=== PATIENT | female | born 1940 | race Caucasian/White ===

== ENCOUNTER 2024-12-21 22:41 | Emergency (ER) | payer MEDICARE, SELFPAY ==
--- NOTE | ~2024-12-21 | CT_ITS ---
CT Facial Bones and Cervical Spine Clinical Indication: Head injury Technique: Contiguous axial scans were obtained through the facial bones and cervical spine followed by coronal and sagittal reconstructions. Dose reduction technique was used on this scan by utilizing automated exposure control and iterative reconstruction technique. The dose-length product (DLP) was 281.14 mGy-cm. Findings: CT facial bones: There is acute right nasal bone fracture, and questionable nondisplaced acute left n patti bone fracture. No other acute fracture seen. There is postoperative changes bilaterally at the m andibular rami, with advanced degenerative change of the bilateral mandibular condyles.. The visualiz ed paranasal sinuses are clear. Intraorbital soft tissues appear normal. CT cervical spine: No acute fracture. There is 3 mm anterolisthesis of C4 over C5. There is reversal normal cervical lordosis. There is severe degenerative spurring at C3-C4, C4-C5, C5-C6, and C6-C7. Th ere is moderate degenerative change at the articulation of the odontoid process with the anterior arc h of C1. There is moderate to advanced facet arthropathy throughout the cervical spine. There is left neural foraminal narrowing at C3-C4. There is probable bilateral neural foraminal narrowing at C4-C5 , C5-C6, and C6-C7. No prevertebral soft tissue swelling. Impression: Acute bilateral nasal bone fractures, as above. Chronic changes at the bilateral temporomandibular joints, likely degenerative in nature. No acute fracture the cervical spine. 3 mm anterolisthesis of C4 over C5. Advanced degenerative spondylosis of the cervical spine, as above. Reviewed, dictated and finalized at [facility]. Impression: Acute bilateral nasal bone fractures, as above. Chronic changes at the bilateral temporomandibular joints, likely degenerative in nature. No acute fracture the cervical spine. 3 mm anterolisthesis of C4 over C5. Advanced degenerative spondylosis of the cervical spine, as above.
--- NOTE | ~2024-12-21 | CT_ITS ---
CT head without contrast Indication: Head injury Technique: Serial scans were obtained through the brain without the administration of contrast. Dose reduction technique was used on this scan by utilizing automated exposure control and iterative recon struction technique. The dose-length product (DLP) was 681.00 mGy-cm. Findings: There is no evidence of intracranial hemorrhage, mass lesion, or acute infarct. The ventri cles and subarachnoid spaces are dilated, consistent with moderate atrophy. Low attenuation regions are seen within the periventricular white matter bilaterally, likely representing changes from chroni c microvascular ischemic disease. There is no evidence of edema, mass effect or midline shift. Left sphenoid sinus disease noted. The remaining visualized paranasal sinuses and mastoid air cells are cl ear. Impression: No intracranial hemorrhage, mass, or acute infarct. Atrophy and chronic white matter changes, as above. Left sphenoid sinus disease. Reviewed, dictated and finalized at [facility]. Impression: No intracranial hemorrhage, mass, or acute infarct. Atrophy and chronic white matter changes, as above. Left sphenoid sinus disease.
[2024-12-21 22:42] VITALS: BP 148/63; PULSE 83; RESP 16; TEMP 37.1; O2SAT 98
--- NOTE | 2024-12-21 23:00 | ED_ITS ---
HPI - Fall General Chief Complaint: Fall Stated Complaint: FACIAL BRUISING S/P FALL 2 DAYS AGO Time Seen by Provider: 12/21/24 22:52 History of Present Illness HPI Narrative: 84-year-old female with history of Alzheimer's dementia, hypertension, hyperlipidemia, diabetes, MDD, GERD, CKD stage 2, CHF chronic indwelling Connolly catheter presents to the ED via EMS from [facility] for a head injury and fall. Per EMS, pt rolled out of bed 2 days ago and hit her head. Unknown LOC. She is not on anticoagulants. Patient has no complaints upon arrival. She presents with bruising to her nose and inferior orbits, and a skin tear to the dorsum of the left hand with overlying steri-strips. She had an xray of the skull performed at her facility which showed no definite displaced her depressed calvarial fracture with recommendations for further evaluation with CT head if clinically warranted. Her paperwork from [facility] was reviewed and patient is comfort care, DNR and on hospice. Patient is normally A&O x2 at baseline. Review of Systems Review of Systems: All systems reviewed & are unremarkable except as noted in HPI and below Exam Narrative: GENERAL: Elderly female resting comfortably in exam bed, NAD HEAD: Normocephalic, atraumatic. EYES: PERRLA and EOMI. Ecchymosis to bilateral inferior orbits with mild tenderness palpation. No proptosis ENT: Nares clear, no rhinorrhea or epistaxis. Mucous membranes moist. Minimal tenderness and swelling to the bridge of the nose with very superficial abrasion the bridge of the nose, no active bleeding. No septal hematomas, no epistaxis NECK: Minimal tenderness to the cervical spinal crepitus, step-offs or deformities BACK: No tenderness to thoracolumbar spine, crepitus or step-offs, no deformities CHEST: Clear to auscultation. No respiratory distress. Tenderness to chest wall HEART: Regular rate and rhythm. No murmur heard. Normal peripheral pulses. ABDOMEN: Soft, nontender, nondistended, normal active bowel sounds. EXTREMITIES: Normal range of motion. No tenderness to BUE are BLE. SKIN: Healing well approximated laceration with overlying scabbing to the dorsum of left hand with overlying Steri-Strips. Mild warmth and erythema to dorsum of the hand, no significant tenderness. erythema and warmth to lower tib/fib with no tenderness NEURO: No focal deficits. Alert and oriented x2. Moving all extremities spontaneously. Course Vital Signs Vital signs: Vital Signs Temperature 98.7 F 12/21/24 22:42 Pulse Rate 83 12/21/24 22:42 Respiratory Rate 16 12/21/24 22:42 Blood Pressure 148/63 H 12/21/24 22:42 Pulse Oximetry 98 12/21/24 22:42 Oxygen Delivery Room Air 12/21/24 22:42 Temperature 98.7 F 12/21/24 22:42 Pulse Rate 83 12/21/24 22:42 Respiratory Rate 16 12/21/24 22:42 Blood Pressure 148/63 H 12/21/24 22:42 Pulse Oximetry 98 12/21/24 22:42 Oxygen Delivery Room Air 12/21/24 22:42 MDM - Fall MDM Narrative Medical decision making narrative: 84-year-old female with history of Alzheimer's dementia who is A&O x2 at [facility], currently at her baseline mental status, presents to the ED via EMS from [facility] for a head injury. Patient reportedly rolled out of bed. She is not anticoagulated. Unknown LOC. vital stable. Patient is resting comfortably in exam bed. She has no complaints. Exam is notable for the above. Patient's external chart was reviewed. She is DNR, comfort care only and on hospice. I contacted patient's daughter, Miladys Larkin, to discuss goals of care today. She states patient reportedly fell this morning at 4am as opposed to 2 days ago. Miladys had requested the patient be transferred from [facility] to [facility], however the patient was transferred here instead. She would like the patient transferred from [facility] to [place], however shared this would be an EMTALA violation. Shared decision making regarding obtaining CT imaging of brain, facial bones and cervical spine here vs d/c back to [place] given she is comfort care/hospice and any new findings on advanced imaging will likely not affect treatment plan. Miladys would like the CT imaging performed. She notes she wants to find out of the patient has any intracranial bleeding. CT brain shows no acute findings. CT C-spine shows no acute fractures. CT facial bones shows acute nasal bone fracture. Family now at bedside and updated on results. Patient does have a healing lacerations overlying Steri-Strips to the dorsum of the left hand. There is mild surrounding warmth and erythema with no remarkable tenderness, no fluctuation or induration. Additionally she does have some warmth and erythema to the bilateral tib-fib which are largely unchanged from baseline per family. Also has very superficial abrasion to bridge of nose overlying nasal bone fx with no deep structures visualized. Discussed starting patient on antibiotics to cover cellulitis and open nasal bone fx, however they politely declined states they will defer to hospice. Tdap updated here. Pt discharged back to [facility] facility. Discharge Plan Discharge Clinical Impression: Closed head injury Qualifiers: Encounter type: initial encounter Qualified Code(s): S09.90XA - Unspecified injury of head, initial encounter Facial bruising Qualifiers: Encounter type: initial encounter Qualified Code(s): S00.83XA - Contusion of other part of head, initial encounter Fracture of nasal bone Qualifiers: Encounter type: initial encounter Fracture type: closed Qualified Code(s): S02.2XXA - Fracture of nasal bones, initial encounter for closed fracture Patient Disposition: NH Alf/Asst Living Condition: Stable Instructions: Antibiotic Form, Head Injury (ED), Contusion in Adults (ED), Nasal Fracture (ED) Additional Instructions: CT of the head shows no brain bleed or acute findings. CT of the neck shows no broken bones. CT of the face shows an acute nasal bone fracture. We did discuss starting the patient on antibiotics to cover skin infections of her legs and left hand as well as an open nasal bone fracture, however family has chosen to defer to hospice on this. Please follow-up closely with patient's hospice team and PCP. Return to the emergency department for any new or worsening symptoms. Patient Language: Arabic
[2024-12-22] MEDS: TETANUS,DIPHTHERIA,AC PERTUSSIS ADULT (0.5 ML) BOOSTRIX IM (00:34)
--- OUTSIDE RECORDS SUMMARY | 2024-12-22 01:02 | XMS_ITS | Encounter Summary ---
Author Organization [facility] Address [address] [place] [id number] Care Team Providers Care Parts Technician Name Role Phone Amparo Faustin MD Unavailable [phone] Donn Bonilla DO Primary Care Provider [phone] Reason for Visit * Reason Onset Date Comments Hospital Follow Up 04/20/2019 Encounter Details Date Type Department Care Team (Late st Contact Info) Description 04/20/[address] [facility] - [address], [facility] [place] [address] Katty Moore RN [address] [place] [address] Hospital Follow Up Social History Tobacco Use Types Packs/Day Years Used Date Smoking Tobacco: Never Smokeless Tobacco: Never Alcohol Use Standard Drinks/Week Comments No 0 (1 standard drink = 0.6 oz pur e alcohol) Comments No Sex and Gender Information Value Date Recorded Sex Assigned at Female 09/01/2018 2:46 PM PSYCHOLOGICAL STRESS EVALUATOR Legal Sex Female 4:57 PM CDT Gender Identity Female 09/01/2018 2:46 PM PSYCHOLOGICAL STRESS EVALUATOR Sexual Orientation Straight 09/01/2018 2: 46 PM PSYCHOLOGICAL STRESS EVALUATOR 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 Answer Date of Assessment Author Status No 04/08/2019 3:01 PM CDT Activ e * Do you have serious difficulty walking or climbing stairs? Answer Date of Assessment Author Status Yes 04/08/2019 3:01 PM CDT Leandra Ulloa RN Active * Do you have difficulty dressing or bathing? Answer Date of Assessment Author Status No 04/08/2019 3:01 PM CDT Leandra Ulloa RN Active * Because of a physical, mental, or emotional condition, do you have difficulty doing errands alone such as visiting a doctor's office or shopping? Answer Date of Assessment Author Status Yes 04/08/2019 3:01 PM AURELIAT Leandra Ulloa RN Active documented as of this encounter Mental Status * Because of a physical, mental, or emotional condition, do you have serious difficulty concentrating, remembering, or making decisions? Answer Entry Date Author Status No 04/08/2019 3:01 PM CDT Leandra Ulloa RN Active documented in this encounter Plan of Treatment Not on file documented as of this encounter Visit Diagnoses Not on filedocumented in this encounter Additional Health Concerns Infection Onset Date Last Indicated Resolved Time COVID-19 Rule Out 09/04/2021 09/04/2021 09/04/2021 9:49 AM PSYCHOLOGICAL STRESS EVALUATOR COVID-19 Rule Out 09/04/2021 09/04/2021 09/04/2021 11:43 AM PSYCHOLOGICAL STRESS EVALUATOR COVID-19 Confirmed 09/04/2021 09/04/2021 12:32 AM PSYCHOLOGICAL STRESS EVALUATOR COVID-19 Rule Out 06/07/2022 06/07/2022 06/07/2022 8:15 AM CDT COVID-19 Rule Out 06/11/2022 06/11/2022 06/11/2022 11:13 AM CDT documented as of this encounter Care Teams Parts Technician Relationship Specialty Start Date End Date Donn Bonilla DO [address] [phone] PCP - General FAMILY PRACTICE 06/14/19 Amparo Faustin MD [facility]. [facility] [address] [place], [place] [phone] [employer] Tender CARDIOVASCULAR DISEASE 09/22/17 documented as of this encounter
--- OUTSIDE RECORDS SUMMARY | 2024-12-22 01:02 | XMS_ITS | Clinical Summary ---
Author Organization [facility] Address [address] [place] [id number] Care Team Providers Care Network Relations Consultant Name Role Phone Amparo Faustin MD Unavailable [phone] Donn Bonilla DO Primary Care Provider [phone] Allergies Active Allergy Reactions Criticality Noted Date Comments Atorvastatin Myalgias Medium 11/14/2020 Cephalexin Hives Medium 08/26/2017 Gentamicin Redness,Swelling Medium 08/26/2017 From eye drops EYE DROPS Pregabalin Diarrhea Medium 04/13/2017 Patient had severe diarrhea 2 days after starting Lyrica Sulfa Antibiotics Hives Medium 08/26/2017 Medications morphine 15 MG tabletIndications:C hronic Pain Take 1 tablet (15 mg total) by mouth every 6 (six) hours as needed (pain). Indications: Chronic Pain 08/26/20 21 Active predniSONE (DELTASONE) 5 mg tabletIndications:C hronic Arthritis Take 1 tablet (5 mg total) by mouth 2 (two) times daily. Indications: Chronic Arthritis 04/13/20 22 Active famotidine (PEPCID) 40 MG tabletIndications:N onerosive Gastroesophagel Reflux Disease Take 1 tablet (40 mg total) by mouth daily. Indications: Nonerosive GERD 04/14/20 22 Active rivaroxaban (XARELTO) 20 MG Tab tabletIndications:D eep Vein Thrombosis,History of DVT Take 1 tablet (20 mg total) by mouth daily with supper. Take with food 30 tablet 5 06/02/20 Active acetaminophen (TYLENOL) 500 MG tabletIndications:P ain Take 1 tablet (500 mg total) by mouth every 6 (six) hours as needed for Pain. Indications: Pain Active citalopram (CELEXA) 20 MG tabletIndications:D epression,nerve pain Take 1 tablet (20 mg total) by mouth daily. 30 tablet 01/20/20 Active polyethylene glycol (MIRALAX) 17 GM/SCOOP powderIndications:C onstipation Take 17 g by mouth daily as needed (constipation). Indications: Constipation 01/27/20 Active Iron, Ferrous Sulfate, 325 (65 Fe) MG TabIndications:supp lement Take 325 mg by mouth daily. Indications: supplement 01/27/20 Active Magnesium Hydroxide (DULCOLAX CHEWY FRUIT BITES) 600 MG Chew TabIndications:Cons tipation Chew 1 chewable tablet by mouth daily as needed (constipation). Indications: Constipation 01/27/20 Active Active Problems Problem Noted Date Diagnosed Date Hallucinations 02/13/2024 Acute encephalopathy 01/18/2024 UTI (urinary tract infection) 01/17/2024 Pulmonary embolism ([facility]) 05/01/2022 Pneumonia 01/20/2022 COVID-19 09/06/2021 Major depressive disorder, single episode 2021 Overview (09/06/2021): Depression - (Added by TW Conv) Shortness of breath 09/04/2021 Bicuspid aortic valve 01/30/2021 CHOUDHURY (dyspnea on exertion) 10/21/2020 Fibromyalgia 09/24/2020 Subconjunctival hemorrhage of right eye 09/24/19 Overview (09/06/2021): Last Assessment & Plan: Advised not to stop Xarelto without consulting with PCP and instructed to keep upcoming appointment with associate professor of library science. Cerebrovascular accident (CVA) ([facility]) 08/26/2020 Dupuytren contracture 01/15/2020 Fracture of pelvis ([facility]) 01/15/2020 Hypercalcemia of malignancy 01/15/2020 Mass of cerebellum 01/15/2020 RLS (restless legs syndrome) 01/15/2020 Chronic kidney disease (CKD), stage III (moderat e) 07/05/2019 Lumbar spinal stenosis 07/05/2019 OAB (overactive bladder) 07/05/2019 Liver mass 06/21/2018 Hernia, inguinal, unilateral 06/09/2018 DM (diabetes mellitus), type 2 ([facility]) 05/20/2018 HTN (hypertension), benign 05/20/2018 Chronic deep vein thrombosis (DVT) of proximal vein of lower extremity ([facility]) 05/20/2018 KIMBERLY (acute kidney injury) 05/20/2018 Dry mucous membranes 05/19/2018 Generalized weakness 05/19/2018 Rheumatoid arthritis ([facility]) 8 History of deep venous throm bosis (DVT) of distal vein of right lower extremity 04/11/2018 History of esophageal stricture 10/25/2017 Neuropathy 07/21/2017 Pain due to varicose veins of lower extremity Low iron 06/24/2016 Abnormal CBC 06/23/2016 Dysphagia 01/24/2015 Muscle spasms of lower extremity 02/23/2014 Vitamin B12 deficiency 01/24/2013 Anemia 10/18/2012 Osteoarthrosis 04/27/2012 Gastroesophageal reflux disease 03/17/2012 Depression 03/04/2012 Dyslipidemia 03/04/2012 Vitamin D deficiency 03/04/2012 Deep vein thrombosis (DVT) o f lower extremity ([facility]) 10/07/2011 Extrinsic asthma with exacerbation ([facility]) 04/2003 Allergic rhinitis due to other allergen 09/22/19 00 MVP (mitral valve prolapse) Mixed hyperlipidemia Resolved Problems Problem Noted Date Diagnosed Date Resolved Date Statin intolerance 11/14/2020 2 Sepsis ([facility]) 05/19/201812/2018 Chest pain 08/26/2017 08/27/2017 Immunization due 06/09/2017 2020 Immunizations Immunization Administration Dates Next Due Fluzone High Dose - >Age 65 (Prefilled Syringe) 06/02/2019 Influenza (Generic) 07/17/2015, 4,06/20/2013,2011 Influenza Adult (Generic) 05/30/2018,06/09/2017, 06/25/2016 Pneumococcal (Pneumovax 23) 06/02/2019 Pneumococcal (Prevnar 13) 06/03/2016 Tdap (Generic) 06/25/2016 Family History Medical History Relation Comments Heart Mother Rheumatoid Arthritis Mother [place] Sister silent mitral valve clip Sister Relation Status Comments Father Mother Sister Alive Social History Tobacco Use Types Packs/Day Years Used Date Smoking Tobacco: Never Smokeless Tobacco: Never Tobacco Cessation:Counseling Given: Not Answered Alcohol Use Standard Drinks/Week Comments No 0 (1 standard drink = 0.6 oz pur e alcohol) OASIS D0700: Social Isolation Answer Da te Recorded Frequency of experiencing loneliness or isolatio n Never 02/02/2024 OASIS A1250: Transportation Answer Date Recorded Lack of Transportation (Medical) No 02/02/2024 Lack of Transportation (Non-Medical) No 02/02/2024 Patient Unable or Declines to Respond No 02/02/2024 OASIS B1300: Health Literacy Answer Sher e Recorded Frequency of needing help to read materials from doctor or pharmacy Never 02/02/2024 B1300 Health Literacy Answer Date Recor ded How often do you need to hav e someone help you when you read instructions, pamphlets, or other written material from your doctor or pharmacy? Never 02/13/2024 [facility] Utilities Answer Date Recorded In the past 12 months has [facility] [employer], gas, oil, or water [employer] threatened to shut off services in your home? No 02/13/2024 Humiliation, Afraid, Rape, and Kick questionnair e Answer Date Recorded Within the last year, have y ou been afraid of your partner or ex-partner? No 02/13/2024 Within the last year, have y ou been humiliated or emotionally abused in other ways by your partner or ex-partner? No Within the last year, have y ou been kicked, hit, slapped, or otherwise physically hurt by your partner or ex-partner? No 02/13/2024 Within the last year, have y ou been raped or forced to have any kind of sexual activity by your partner or ex-partner? No 02/13/2024 Social Connection and Isolat ion Panel [NHANES] Answer Date Recorded In a typical week, how many times do you talk on the phone with family, friends, or neighbors? More than three times a week 02/13/2024 How often do you get togethe r with friends or relatives? More than three times a week 02/13/2024 How often do you attend chur ch or evangelical services? 1 to 4 times per year 02/13/2024 Do you belong to any clubs o r organizations such as christianity groups, unions, fraternal or athletic groups, or school groups? No 02/13/2024 How often do you attend meet ings of the clubs or organizations you belong to? Never 02/13/2024 Are you , , di vorced, , never , or living with a partner? 02/13/2024 AUDIT-C Answer Date Recorded Q1: How often do you have a drink containing alcohol? Never 02/13/2024 Q2: How many drinks containi ng alcohol do you have on a typical day when you are drinking? Patient does not drink Q3: How often do you have si x or more drinks on one occasion? Less than monthly 02/13/2024 Overall Financial Resource Strain (CARDIA) Answe r Date Recorded How hard is it for you to pa y for the very basics like food, housing, medical care, and heating? Not hard at all 02/13/2024 [facility] Answer Date Recorded Do you feel stress - tense, restless, nervous, or anxious, or unable to sleep at night because your mind is troubled all the time - these days? To some extent 02/13/2024 Exercise Vital Sign Answer Date Recorde d On average, how many days pe r week do you engage in moderate to strenuous exercise (like a brisk walk)? 0 days 01/17/2024 On average, how many minutes do you engage in exercise at this level? 0 min 01/17/2024 Hunger Vital Sign Answer Date Recorded Within the past 12 months, y ou worried that your food would run out before you got the money to buy more. Never true 02/13/20 24 Within the past 12 months, t he food you bought just didn't last and you didn't have money to get more. Never true 02/13/2024 PRAPARE - Transportation Answer Date Re corded In the past 12 months, has l ack of transportation kept you from medical appointments or from getting medications? No 01/28 In the past 12 months, has l ack of transportation kept you from meetings, work, or from getting things needed for daily living? No 02/13/2024 Housing Stability Vital Sign Answer Sher e Recorded In the last 12 months, was t here a time when you were not able to pay the mortgage or rent on time? No 02/13/2024 In the past 12 months, how m any times have you moved where you were living? 1 02/13/2024 At any time in the past 12 m [facility], were you homeless or living in a longterm (including now)? 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 Not on file Not on file Not on fi le Last Filed Vital Signs Vital Sign Reading Time Taken Comments Blood Pressure 190/96 02/23/2024 7:07 PM CDT Pulse 62 02/23/2024 7:07 PM CDT Temperature 36.6 C (97.8 F) 02/23/2024 4:16 PM CDT Respiratory Rate 18 02/23/2024 7:07 PM CDT Oxygen Saturation 99% 02/23/2024 7:07 PM CDT Inhaled Oxygen Concentration - - Weight 80.4 kg (177 lb 4 oz) 02/13/2024 1:00 PM CDT Height 170.2 cm (5' 7 ) 02/13/2024 1:00 PM CDT Body Mass Index 27.76 02/13/2024 1:00 PM CDT Plan of Treatment Health Maintenance Due Date Last Done Comments Kidney Health Evaluation 1941 Diabetes: Retinopathy Eye Exam 1959 Zoster Vaccines (1 of 2) 1991 Annual Medicare Wellness Visit 2006 RSV Immunization or 60+ Years (1 - 1-dose 75+ series) 2016 Lipid Panel 10/21/2023 10/21/2022, 02/2019, 02/03/2018, Additional history exists Hemoglobin A1C 04/26/2024 10/27/2023, 02/27, 10/21/2022, Additional history exists COVID-19 Vaccine ( season) 2024 01/25/2021, 12/28/2020 PHQ-2 (Physician [place]) 08/30/2024 DTaP, Tdap and Td Vaccines (2 - Td or Tdap) 06/25/2026 06/25/2016, 06/25/2016 Pneumococcal Vaccine: 50+ Years Completed 06/02/2019, 06/03/2016 Dexa Scan (General) Completed 02/29/2020 Meningococcal B Vaccine Aged Out No l onger eligible based on patient's age to complete this topic Meningococcal Vaccine Aged Out No rosibel bee eligible based on patient's age to complete this topic RSV Immunizations Under 20 Months Aged Out No longer eligible based on patient's age to complete this topic Goals Goal Patient Goal Type Associated Problems Recent Progress Patient-Stated? Author Safety - demonstrates understanding of home safety measures General No Noelle Atkinson, electronic controls repairer supervisor - family caregiver with be involved in care transitions and discharge planning Lifestyle No Radha Deleon, PREPAROLE COUNSELING AIDE Procedures Procedure Name Priority Date/Time Associated Diagnosis Comments LIPID PANEL Routine 07/06/2019 2:54 PM PATIENT SUPPORT TECH Chronic kidney disease, stage III (moderate) DM type 2 causing CKD stage 3 Hyperlipidemia Anemia, unspecified HEMOGLOBIN, GLYCOSYLATED Routine 07/06/2019 2:54 PM PATIENT SUPPORT TECH Chronic kidney disease, stage III (moderate) DM type 2 causing CKD stage 3 Hyperlipidemia Anemia, unspecified from Last 3 Months or Most Recently Relevant to Health Maintenance Results * (ABNORMAL) HEMOGLOBIN, GLYCOSYLATED (07/06/2019 2:54 PM PATIENT SUPPORT TECH) HGB A1C 6.6(H) 4.2 - 6.3 % 07/06/2019 5:49 PM PATIENT SUPPORT TECH [facility] Comment: ADA GUIDELINES 2010 5.7 TO 6.4% INCREASED RISK OF DIABETES > OR = 6.5% CONSISTENT WITH DIABETES ESTIMATED AVG GLUCOSE 143 mg/dL 07/06/2019 5:49 PM [facility] 07/06/2019 2:54 PM PATIENT SUPPORT TECH Donn Bonilla DO LABORATORY Final Result [facility] [address] [place] [address], [place] [phone] * (ABNORMAL) LIPID PANEL (07/06/2019 2:54 PM PATIENT SUPPORT TECH) CHOLESTEROL 237(H) <200 MG/DL 07/06/2019 4:18 PM [facility] TRIGLYCERIDES 187(H) <150 MG/DL 07/06/2019 4:18 PM [facility] HDL 67 >40.0 MG/DL 07/06/2019 4:18 PM [facility] LDL (CALCULATED) 133(H) <100 MG/DL 07/06/2019 4:18 PM [facility] NON HDL CHOLESTEROL 170(H) <130 MG/DL 07/06/2019 4:18 PM [facility] CHOL/HDL RATIO 3.5 0.0 - 4.5 07/06/2019 4:18 PM [facility] VLDL CALCULATION 37 5 - 55 MG/DL 07/06/2019 4:18 PM [facility] LIPID INTERPRETATION 07/06/2019 4:18 PM [facility] Comment: NIH CONCENSUS REPORT RECOMMENDATIONS: ADULT CHILD LOW RISK: CHOLESTEROL <200 <170 TRIGLYCERIDE <150 --- HDL >=60 --- LDL <100 <110 BORDERLINE: CHOLESTEROL 200-239 170-199 TRIGLYCERIDE 150-199 --- HDL 40-59 --- LDL 100-159 110-129 HIGH RISK: CHOLESTEROL >=240 >=200 TRIGLYCERIDE >=200 --- HDL <40 --- LDL >=160 >=130 07/06/2019 2:54 PM PATIENT SUPPORT TECH Donn Bonilla DO LABORATORY Final Result [facility] [address] [place] [address], from Last 3 Months or Most Recently Relevant to Health Maintenance Insurance [employer] Advance Directives * Full Code (Latest Code Status on File) Date Activated Date Inactivated Comments 02/13/2024 3:46 PM 02/16/2024 2:42 PM * Full Code Date Activated Date Inactivated Comments 01/27/2024 1:22 PM 02/09/2024 7:34 AM * Full Code Date Activated Date Inactivated Comments 01/17/2024 2:34 PM 01/20/2024 12:29 PM * POLST Date Activated Date Inactivated Comments 05/01/2022 9:15 AM 05/03/2022 7:45 PM Question Answer Comments Cardiopulmonary Resuscitatio n (CPR) If patient has no pulse and is not breathing: ATTEMPT Resuscitation CPR Medical Interventions when N OT in Cardiopulmonary Arrest (If patient is found with a pulse and/or is breathing): Comfort Focused - Do NOT Intubate Documentation of discussion: [facility] Surrogate Decision Maker * Full Code Date Activated Date Inactivated Comments 01/20/2022 4:01 PM 01/23/2022 6:32 PM Care Teams Network Relations Consultant Relationship Specialty Start Date End Date Donn Bonilla DO [facility] [address] [place], [place] [id number] PCP - General FAMILY PRACTICE 06/14/19 Amparo Faustin MD [facility] [address] [place] [address] [place] Bolt Machine Operator CARDIOVASCULAR DISEASE 09/22/17
--- OUTSIDE RECORDS SUMMARY | 2024-12-22 01:04 | XMS_ITS | Referral Summary ---
Author Organization [facility] Address [address] [place] [address] Care Team Providers Care Home Care Giver Name Role Phone Donn Bonilla DO Primary Care Provider + Juan Herrera MD Unavailable Mona Islas NP Unavailable [phone] Rc Campo MD Unavailable Encounters Date Type Department Care Team Description 12/21/2024 Home Care Visit [address] [place] [address] Cathy Bolden RN SN TRIAGE ENCOUNTER 12/21/2024 Home Care Visit [address] [place] [address] Neeta Gagnon MSW BUFFING MACHINE OPERATOR HOSPICE PHONE CALL 12/21/2024 Home Care Visit [address] [place] [address] Sharon Avila, RN CASE COMMUNICATION 12/21/2024 Home Care Visit [address] [place] [address] Emilie Blair, RN SN TRIAGE ENCOUNTER 12/21/2024 Home Care Visit [facility] [address] [place], [place] [address]y [address] [place] [address] Emilie Blair, RN SN TRIAGE ENCOUNTER 12/21/2024 Home Care Visit [facility] [address] [place], [place] [address] [address] [place] [address] Cathy Bolden RN SN TRIAGE ENCOUNTER 12/21/2024 9:00 AM CDT Home Care Visit [address] [place] [address] Sharon Avila, JU SN HOSPICE VISIT 12/20/2024 Plan of Care Documentation [address] [place] [address] 12/18/2024 2:00 PM CDT Home Care Visit [address] [place] [address] Sharon Avila RN SN HOSPICE VISIT 12/16/2024 Home Care Visit [address] [place] [address] Leeanne Avila RN SN TRIAGE ENCOUNTER 12/14/2024 10:00 AM CDT Home Care Visit [address] [place] [address] Sharon Avila RN SN HOSPICE VISIT 12/13/2024 2:00 PM CDT Home Care Visit [address] [place] [address] Luis Luna M.A. SUPERVISOR CAB HOSPICE VISIT 12/13/2024 12:00 PM CDT Home Care Visit [address] [place] [address] Neeta Gagnon MSW BUFFING MACHINE OPERATOR HOSPICE VISIT 12/13/2024 11:00 AM CDT Home Care Visit [address] [place] [address] South PlymouthScooter ritchiel, CARBOY FILLER AIDE HOME VISIT 12/12/2024 Home Care Visit [address] [place] [address] Dania Shelton RN SN TRIAGE ENCOUNTER 12/11/2024 12:00 PM CDT Home Care Visit [address] [place] [address] Sharon Avila, RN SN HOSPICE VISIT 12/09/2024 Home Care Visit [address] [place] [address] Norris Goldstein RN SN TRIAGE ENCOUNTER 12/07/2024 Home Care Visit [address] [place] [address] Sharon Avila, RN CASE COMMUNICATION 12/07/2024 9:30 AM CDT Home Care Visit [address] [place] [address] Sharon Avila, RN SN HOSPICE VISIT 12/06/2024 Plan of Care Documentation [address] [place] [address] 12/06/2024 11:00 AM CDT Home Care Visit [address] [place] [address] Scooter Smithl, CARBOY FILLER AIDE HOME VISIT 12/04/2024 12:30 PM CDT Home Care Visit [address] [place] [address] Sharon Avila, JU SN HOSPICE VISIT 12/01/2024 12:00 PM CDT Home Care Visit [address] [place] [address] Scooter Smithl, CARBOY FILLER AIDE HOME VISIT 11/30/2024 1:00 PM CDT Home Care Visit [facility] [address] [facility] [address] [place] [address] Sharon Avila, RN SN HOSPICE VISIT 11/27/2024 11:00 AM CDT Home Care Visit [facility] [address] [facility] [address] [place] [address] Siri Goodrich, JU SN HOSPICE VISIT 11/24/2024 10:00 AM CDT Home Care Visit [facility] [address] [place], [place] [address] [address] [place] [address] Kaushik Smith CNA AIDE HOME VISIT 11/23/2024 11:55 AM CDT Home Care Visit [facility] [address] [place], [place] [address] [address] [place] [address] Sharon Avila, JU SN HOSPICE VISIT 11/22/2024 Home Care Visit [address] [place] [address] Sharon Avila, RN CASE COMMUNICATION 11/22/2024 Home Care Visit [address] [place] [address] Emilie Blair, JU SN TRIAGE ENCOUNTER 11/22/2024 11:00 AM CDT Home Care Visit [address] [place] [address] Neeta Gagnon MSW BUFFING MACHINE OPERATOR HOSPICE VISIT 11/22/2024 Plan of Care Documentation [address] [place] [address] 11/22/2024 Home Care Visit [address] [place] [address] Sharon Avila, RN CASE COMMUNICATION 11/22/2024 12:30 PM CDT Home Care Visit [address] [place] [address] Naomie Darby, RN SN HOSPICE VISIT 11/22/2024 Home Care Visit [address] [place] [address] Sharon Avila, RN CASE COMMUNICATION 11/22/2024 Home Care Visit [address] [place] [address] Emilie Blair, RN SN TRIAGE ENCOUNTER 11/22/2024 Home Care Visit [address] [place] [address] Cathy Bolden, RN SN TRIAGE ENCOUNTER 11/20/2024 10:30 AM CDT Home Care Visit [address] [place] [address] Sharon Avila, RN SN HOSPICE VISIT 11/19/2024 Home Care Visit [address] [place] [address] Bandar Angeles RN SN TRIAGE ENCOUNTER 11/17/2024 11:00 AM CDT Home Care Visit [address] [place] [address] Siri Goodrich, JU SN HOSPICE VISIT 11/16/2024 Home Care Visit [address] [place] [address] Miranda Garcia, RN SN TRIAGE ENCOUNTER 11/16/2024 6:00 PM CDT Home Care Visit [address] [place] [address] Elfego Alvarez, JU SN HOSPICE VISIT 11/16/2024 Home Care Visit [address] [place] [address] Miranda Garcia, RN SN TRIAGE ENCOUNTER 11/16/2024 Home Care Visit [address] [place] [address] Cathy Bolden, JU SN TRIAGE ENCOUNTER 11/16/2024 2:30 PM CDT Home Care Visit [address] [place] [address] Luis Luna M.A. [facility] HOSPICE ASSESSMENT 11/15/2024 Home Care Visit [address] [place] [address] Neeta Gagnon, [facility]ICE PHONE CALL 11/15/2024 Home Care Visit [address] [place] [address] Anh Park RN SN TRIAGE ENCOUNTER 11/15/2024 Orders Only [facility] [address] [place] [address] Daniel Rodriguez MD 11/15/2024 11:30 AM CDT Home Care Visit [address] [place] [address] Siri Goodrich RN SN HOSPICE VISIT 11/15/2024 11:15 AM CDT Home Care Visit [address] [place] [address] Neeta Gagnon, [facility] HOSPICE ASSESSMENT 11/14/2024 Plan of Care Documentation [address] [place] [address] 11/14/2024 12:30 PM CDT Home Care Visit [address] [place] [address] Divya Whittaker, JU SN HOSPICE COMPREHENSIVE ASSESSMENT 11/02/2024 12:26 PM ELECTRONICS LEAD - 11/14/2024 2:18 PM CDT Hospital Encounter [facility] [address] [place] [address] Gee Yao DO Smith, MD Audrey Santos Omar Ali Mohammed, MD Lopez, Manuel Emilio, MD Altered mental status, unspecified altered mental status type (Primary Dx); Elevated troponin I level; Severe dementia, unspecified dementia type, unspecified whether behavioral, psychotic, or mood disturbance or anxiety (HCC) Discharge Disposition: Discharge to a [facility] care hospital 11/01/2024 Telephone [facility] Care [address] [place] [phone] Donn Bonilla DO Medical Question/Miscellaneo us 10/30/2024 Telephone [facility] Care [address] [place] [phone] Donn Bonilla DO TRAM Questions 10/10/2024 2:11 PM ELECTRONICS LEAD - 10/17/2024 12:56 PM ELECTRONICS LEAD Hospital Encounter [facility] [address] [place] [address] Iliana Erazo MD Gaspe Mudiyanselage, MD Juan M Cardoza, MD Julio Nicholson Manuel Emilio, MD Sepsis due to pneumonia (HCC) (Primary Dx); Influenza A; KIMBERLY (acute kidney injury); Prerenal azotemia; Acute cystitis with hematuria; Type 2 diabetes mellitus with stage 3b chronic kidney disease, without long-term current use of insulin (HCC) [E11.22, N18.32]; Frequent UTI [N39.0] Discharge Disposition: Discharge to [facility] 10/10/2024 TRAM IP Outreach [facility] Accountable Care Organization [address] [place] [address] Zunilda Thompson LPN 10/10/2024 [address] [phone] Donn Bonilla DO 09/27/2024 8:26 PM ELECTRONICS LEAD - 10/08/2024 3:05 PM ELECTRONICS LEAD Hospital Encounter [address] [address] Donn Reddy Jr., MD Ogbuagu, Henry Maduabuchi, MD Nyquist, MD Anant Yu, MD Jostin Vila Cesar, MD Mustafa, Saim, DO Saravanan, Pathanjali, MD Weakness (Primary Dx); Fall, initial encounter; Dehydration; Constipation, unspecified constipation type; Muscular deconditioning; Restless leg syndrome; Hyperglycemia Discharge Disposition: Discharge to home, home health skilled care 10/02/2024 Telephone [facility] Medical [facility] Primary Care [address] [place] [address] [address] [place] [phone] Donn Bonilla DO from Last 3 Months Allergies Active Allergy Reactions Criticality Noted Date Comments Atorvastatin Muscle pain Medium 11/14/2020 Cephalexin Hives,Rash Medium 02/11/2018 Hives Gentamicin Swelling,Redness Medium 02/11/2018 From eye drops Swelling Pregabalin Diarrhea Medium 04/13/2017 Patient had severe diarrhea 2 days after starting Lyrica Other reaction(s): Confusion Confusion Sulfa (Sulfonamide Antibiotics) Hives,Urticaria,Rash High 11/29/2017 Hives Medications cloNIDine (CATAPRES-TTS) 0.2 mg/24 hrIndications:hy pertension Place 1 patch on the skin once a week 4 patch 11 5 026 Active morphine concentrated solution 100 mg/5 mLIndications:Se pati Pain with Opioid Tolerance,dyspne a Take 10 mg by mouth every hour as needed for pain (dyspnea). Indications: severe pain with opioid tolerance, dyspnea 5 Active LORazepam (ATIVAN) 0.5 mg tabletIndication s:anxiety,pain, dyspnea, sleep, nausea Take 0.5 mg by mouth every 2 (two) hours as needed for anxiety (pain, dyspnea, sleep, nausea). Indications: anxious, pain, dyspnea, sleep, nausea 5 Active hyoscyamine (LEVSIN) 0.125 mg SL tabletIndication s:Sialorrhea Take 0.125 mg by mouth every 4 (four) hours as needed (terminal secretions). Indications: excessive saliva production 5 Active bisacodyL (DULCOLAX) 10 mg suppositoryIndic ations:constipat ion Insert 10 mg into the rectum daily as needed for constipation. Indications: constipation 5 Active acetaminophen (TYLENOL) 650 mg suppositoryIndic ations:Fever,Hea dache Disorder,Pain Insert 650 mg into the rectum every 4 (four) hours as needed for fever, headaches or pain. Indications: fever, headache, pain 5 Active menthol-zinc oxide 0.44-20.6 % ointmentIndicati ons:skin irritation Apply 1 Application topically 4 (four) times a day as needed (skin breakdown). Indications: skin irritation Active LORazepam (ATIVAN) 0.5 mg tabletIndication s:anxiety,Insomn ia Take 0.5 mg by mouth every evening. Indications: anxious, difficulty sleeping Active Active Problems Problem Noted Date Diagnosed Date Moderate protein-calorie malnutrition 11/04/2024 Altered mental status, unspe cified altered mental status type 11/02/2024 Dehydration 11/02/2024 Elevated troponin 11/02/2024 Sepsis due to pneumonia 10/10/2024 Transient neurological symptoms 10/02/2024 Fall, initial encounter 09/28/2024 Hallucinations 02/13/2024 Frequent UTI 01/31/2024 Acute encephalopathy 01/18/2024 Localized swelling of both lower legs 05/21/2023 Assessment & Plan (05/21/2023 11:46 AM CDT): Improving, patient to continue on Lasix 20 mg daily. CMP to be drawn to monitor K+ level. Patient instructed to wear compression stockings daily and elevate lower legs when seated. Patient to call office if swelling worsens with Lasix use. Pulmonary embolism 05/01/2022 Chest pressure 02/23/2022 Pneumonia 01/20/2022 COVID-19 09/06/2021 Acute respiratory failure with hypoxia Bronchospasm 08/28/2021 Chronic narcotic use 08/28/2021 Palpitations 07/31/2021 Statin intolerance 11/14/2020 CHOUDHURY (dyspnea on exertion) 10/21/2020 Acute alteration in mental status 09/24/2020 Bacteremia due to coagulase-negative Staphylococ cus 09/24/2020 Fibromyalgia 09/24/2020 Fracture of neck of humerus 09/24/2020 Hyperleukocytosis 09/24/2020 UTI (urinary tract infection) 09/24/2020 Assessment & Plan (01/31/2024 2:37 PM CDT): Patient prescribed Amoxicillin 875 mg BID for the next 10 days for UTI. Patient is then to return to Amoxicillin 500 mg BID for joint infection prevention. Patient referred to urology for follow up. Right upper quadrant pain 09/24/2020 Assessment & Plan (09/24/2020 7:33 PM ELECTRONICS LEAD): Advised to get labs now, ordered STAT CBC, CMP, and lipase. Instructed to go to ER overnight for worsening symptoms. Recommended calling tomorrow to schedule follow-up with PCP. Subconjunctival hemorrhage of right eye 09/24/19 Assessment & Plan (09/24/2020 7:32 PM ELECTRONICS LEAD): Advised not to stop Xarelto without consulting with PCP and instructed to keep upcoming appointment with magnetic tape winder. 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 Pelvic fracture 01/15/2020 Recurrent falls while walking 01/15/2020 Restless leg syndrome 01/15/2020 Dupuytren contracture 01/15/2020 Chronic kidney disease (CKD), stage III (moderat e) 07/05/2019 Lumbar spinal stenosis 07/05/2019 OAB (overactive bladder) 07/05/2019 Liver mass 06/21/2018 Hernia, inguinal, unilateral 06/09/2018 KIMBERLY (acute kidney injury) ([facility]/HCC) 05/20/2018 Assessment & Plan (02/02/2022 2:53 PM CDT): - resolved Chronic deep vein thrombosis (DVT) of proximal vein of lower extremity (CMS/HCC) 05/20/2018 Weakness 05/19/2018 DM2 (diabetes mellitus, type 2) 04/11/2018 Assessment & Plan (02/02/2022 2:54 PM CDT): - stable - make renewed effort at dietary measures. - recheck A1c at next vist Primary hypertension 04/11/2018 Assessment & Plan (02/02/2022 2:53 PM CDT): - stable - continue current medication - if BP gets low or pt develops lightheadedness will need to decrease amlodipine back to 2.5mg daily instead of her new dose of 5mg daily GERD (gastroesophageal reflux disease) 8 Assessment & Plan (02/02/2022 2:53 PM CDT): - stable - restart reglan Assessment & Plan (09/24/2020 7:31 PM ELECTRONICS LEAD): Chronic, stable, controlled with medication-continued on BID Pepcid, advised follow-up with PCP to discuss EGD. Hiatal hernia 04/11/2018 Depression 04/11/2018 History of deep venous throm bosis (DVT) of distal vein of right lower extremity 04/11/2018 Primary osteoarthritis of left knee 02/11/2018 Overview (02/11/2018): Added automatically from request for surgery [id number] History of esophageal stricture 10/25/2017 Neuropathy 07/21/2017 Low iron 06/24/2016 Dysphagia 01/24/2015 Assessment & Plan (09/24/2020 7:32 PM ELECTRONICS LEAD): Chronic, worsening, with history of esophageal strictures, advised follow-up with PCP to discuss EGD. Osteoarthritis 12/29/2012 Anemia 10/18/2012 Trochanteric bursitis 10/18/2012 Dyslipidemia 03/04/2012 Vitamin D deficiency 03/04/2012 Allergic rhinitis due to other allergen 09/22/19 00 Major depressive disorder, single episode Overview (02/08/2020): Depression - (Added by TW Conv) Resolved Problems Problem Noted Date Diagnosed Date Resolved Date Cough 02/02/2022 10/21/2022 Assessment & Plan (02/02/2022 2:56 PM CDT): - no sign of PNA, PNA resolved - continue benzonatate for cough prn - f/u if sx worsen Hypoxia 08/28/2021 08/28/2021 Bicuspid aortic valve 01/30/20212021 Dysuria 10/21/2020 10/21/2022 Constipation in pediatric patient 09/24/2020 10/21/2022 Fall injury while running 09/24/2020 Epigastric pain 09/24/2020 10/21/2022 Assessment & Plan (09/24/2020 7:33 PM ELECTRONICS LEAD): Advised to get labs now, ordered STAT CBC, CMP, and lipase. Instructed to go to ER overnight for worsening symptoms. Recommended calling tomorrow to schedule follow-up with PCP. Left wrist pain 03/26/2020 07/18/2024 CKD (chronic kidney disease) stage 2, GFR 60-89 ml/min 07/05/2019 07/05/2019 HLD (hyperlipidemia) 04/11/2018 019 Moderate asthma with exacerbation 04/11/2018 08/28/2021 MVP (mitral valve prolapse) 04/11/2018 07/05/2019 Rheumatoid arthritis 04/11/2018 019 Pain in pelvis 04/20/2013 07/05/2019 Knee pain 04/01/2012 07/18/2024 Deep vein thrombosis (DVT) of lower extremity 10/07/19 12 07/05/2019 Acute upper respiratory infection 06/01/2006 07/05/2019 Extrinsic asthma with exacerbation 05/08/2003 07/05/2019 Immunizations Immunization Administration Dates Next Due DTaP, Unspecified 06/25/2016 Influenza, Quad, Adjuvantate d, Intramuscular 06/17/2020 Influenza, Quadrivalent, Hig h Dose, Preservative Free, Intrr 05/21/2023,07/22/2022,06/16/2021 Influenza, Trivalent, High D ose, Split, Preservative Free, Intramuscular 07/18/2024,06/02/2019,05/30/2018,06/09,06/25/2016 Influenza, Trivalent, Preser vative Free, Intramuscular 07/17/2015 Influenza, Unspecified 06/02/2019,05/30/2018, Pfizer SARS-CoV-2 Monovalent Vaccination (12+ Yrs) PURPLE 01/25/2021,12/28/2020 Pneumococcal Conjugate PCV 13 06/03/2016 Pneumococcal Polysaccharide PPV23 06/02/2019 Tdap 06/25/2016 Social History Tobacco Use Types Packs/Day Years Used Date Smoking Tobacco: Never Smokeless Tobacco: Never Tobacco Cessation:Counseling Given: Not Answered Alcohol Use Standard Drinks/Week Comments No 0 (1 standard drink = 0.6 oz pur e alcohol) [facility] Utilities Answer Date Recorded In the past 12 months has e [employer], gas, oil, or water company threatened to shut off services in your home? No 11/03/2024 Social Connection and Isolat ion Panel [NHANES] Answer Date Recorded In a typical week, how many times do you talk on the phone with family, friends, or neighbors? More than three times a week 11/03/2024 How often do you get togethe r with friends or relatives? Three times a week 11/03/2024 How often do you attend chur ch or lutheran services? Never 11/03/2024 Do you belong to any clubs o r organizations such as taoist groups, unions, fraternal or athletic groups, or school groups? No 11/03/2024 How often do you attend meet ings of the clubs or organizations you belong to? Never 11/03/2024 Are you , , di vorced, , never , or living with a partner? 11/03/2024 AUDIT-C Answer Date Recorded Q1: How often do you have a drink containing alcohol? Never 11/02/2024 Q2: How many drinks containi ng alcohol do you have on a typical day when you are drinking? Patient does not drink Q3: How often do you have si x or more drinks on one occasion? Never 11/02/2024 Overall Financial Resource Strain (CARDIA) Answe r Date Recorded How hard is it for you to pa y for the very basics like food, housing, medical care, and heating? Not very hard 11/03/2024 PHQ-2 Answer Date Recorded PHQ-2 Total Score (If total score is 3 or more points, staff should administer the PHQ-9) 0 11/03/2024 Hunger Vital Sign Answer Date Recorded Within the past 12 months, y ou worried that your food would run out before you got the money to buy more. Never true 11/04/19 25 Within the past 12 months, t he food you bought just didn't last and you didn't have money to get more. Never true 11/03/2024 PRAPARE - Transportation Answer Date Re corded In the past 12 months, has l ack of transportation kept you from medical appointments or from getting medications? No 02/2025 In the past 12 months, has l ack of transportation kept you from meetings, work, or from getting things needed for daily living? No 11/03/2024 PHQ-9 Answer Date Recorded PHQ-9 Total Score 0 11/03/2024 Housing Stability Vital Sign Answer Sher e Recorded In the last 12 months, was t here a time when you were not able to pay the mortgage or rent on time? No 11/03/2024 In the past 12 months, how m any times have you moved where you were living? 0 11/03/2024 At any time in the past 12 m [facility], were you homeless or living in a mcc (including now)? No 11/03/2024 Personal Safety Answer Date Recorded Have you ever been in or are you currently in a harmful physical or emotional relationship or is someone making you feel afraid or unsafe? Patient unable to answer 11/02/2024 Comments No Sex and Gender Information Value Date Recorded Sex Assigned at Not on file Legal Sex Female 7:06 PM ELECTRONICS LEAD Gender Identity Not on file Sexual Orientation Not on file Last Filed Vital Signs Vital Sign Reading Time Taken Comments Blood Pressure 156/88 12/21/2024 9:19 AM CDT Pulse 92 12/21/2024 9:19 AM CDT Temperature 37.7 C (99.9 F) 12/21/2024 9:19 AM CDT Respiratory Rate 18 12/21/2024 9:19 AM CDT Oxygen Saturation 92% 12/21/2024 9:19 AM CDT Inhaled Oxygen Concentration - - Weight 69.4 kg (153 lb) 11/14/2024 3:00 PM CDT Height 162.6 cm (5' 4 ) 11/14/2024 3:00 PM CDT Body Mass Index 26.26 11/14/2024 3:00 PM CDT Plan of Treatment Not on file Medical Devices Implanted Type Area Disciplinary Hearing Officer Device Identifier Shelf Expiration Date Model / Serial / Lot [employer] 3122-040 Smartset Medium Viscosity Cement 40gm Bone Sterile - [id number] Implanted:Qty: 1 on 04/12/2018 by Adrian Powell MD at [facility] [employer] [id number] 07/29/2019 3122-040 / / [employer] 3122-040 Smartset Medium Viscosity Cement 40gm Bone Sterile - [id number] Implanted:Qty: 1 on 04/12/2018 by Adrian Powell MD at [facility] [employer] [id number] 06/29/2019 3122-040 / / [employer] [id number] Attune 5mm Cruciate Retaining Fix Bearing Knee 5 Insert Tibial - [id number] Implanted:Qty: 1 on 04/12/2018 by Adrian Powell MD at [facility] [employer] [id number] 12/27/2022 [id number] / / [employer] [id number] Attune Cemented Cruciate Retaining Knee Left 5 Narrow Component - [id number] Implanted:Qty: 1 on 04/12/2018 by Adrian Powell MD at [facility] [employer] [id number] 12/28/2027 [id number] / / [employer] [id number] Attune S+ Cement Fix Bearing Knee 5 Baseplate Tibial - [id number] Implanted:Qty: 1 on 04/12/2018 by Adrian Powell MD at [facility] [employer] [id number] 09/29/2027 [id number] / / Procedures Procedure Name Priority Date/Time Associated Diagnosis Comments POCT GLUCOSE DEVICE Routine 11/14/2024 9 :05 AM CDT POCT GLUCOSE DEVICE Routine 11/13/2024 8 :13 PM CDT POCT GLUCOSE DEVICE Routine 11/13/2024 7 :49 AM CDT POCT GLUCOSE DEVICE Routine 11/13/2024 4 :21 AM CDT POCT GLUCOSE DEVICE Routine 11/13/2024 1 2:22 AM CDT POCT GLUCOSE DEVICE Routine 11/12/2024 8 :50 PM CDT POCT GLUCOSE DEVICE Routine 11/12/2024 5 :43 PM CDT POCT GLUCOSE DEVICE Routine 11/12/2024 1 1:50 AM CDT POCT GLUCOSE DEVICE Routine 11/12/2024 8 :11 AM CDT POCT GLUCOSE DEVICE Routine 11/12/2024 4 :20 AM CDT POCT GLUCOSE DEVICE Routine 11/11/2024 1 1:52 PM CDT POCT GLUCOSE DEVICE Routine 11/11/2024 8 :09 PM CDT POCT GLUCOSE DEVICE Routine 11/11/2024 5 :40 PM CDT POCT GLUCOSE DEVICE Routine 11/11/2024 1 2:01 PM CDT EGFR Routine 11/10/2024 4:20 AM CDT DIFFERENTIAL AUTO Routine 11/10/2024 4:2 0 AM CDT CRP (ACUTE PHASE) Routine 11/10/2024 4:2 0 AM CDT COMPREHENSIVE METABOLIC PANEL Routine 11/10/2024 4:20 AM CDT MAGNESIUM Routine 11/10/2024 4:20 AM CDT PHOSPHORUS Routine 11/10/2024 4:20 AM CDT CBC WITH AUTO DIFFERENTIAL Routine 11/10/2024 4:20 AM CDT POCT GLUCOSE DEVICE Routine 11/10/2024 4 :00 AM CDT POCT GLUCOSE DEVICE Routine 11/09/2024 1 1:57 PM CDT POCT GLUCOSE DEVICE Routine 11/09/2024 8 :40 PM CDT POCT GLUCOSE DEVICE Routine 11/09/2024 4 :53 PM CDT POCT GLUCOSE DEVICE Routine 11/09/2024 1 2:08 PM CDT POCT GLUCOSE DEVICE Routine 11/09/2024 8 :52 AM CDT EGFR Routine 11/09/2024 5:08 AM CDT DIFFERENTIAL AUTO Routine 11/09/2024 5:0 8 AM CDT CRP (ACUTE PHASE) Routine 11/09/2024 5:0 8 AM CDT COMPREHENSIVE METABOLIC PANEL Routine 11/09/2024 5:08 AM CDT MAGNESIUM Routine 11/09/2024 5:08 AM CDT PHOSPHORUS Routine 11/09/2024 5:08 AM CDT CBC WITH AUTO DIFFERENTIAL Routine 11/09/2024 5:08 AM CDT POCT GLUCOSE DEVICE Routine 11/09/2024 5 :01 AM CDT POCT GLUCOSE DEVICE Routine 11/09/2024 1 2:07 AM CDT POCT GLUCOSE DEVICE Routine 11/08/2024 8 :15 PM CDT POCT GLUCOSE DEVICE Routine 11/08/2024 3 :43 PM CDT POCT GLUCOSE DEVICE Routine 11/08/2024 1 1:42 AM CDT POCT GLUCOSE DEVICE Routine 11/08/2024 7 :59 AM CDT POCT GLUCOSE DEVICE Routine 11/08/2024 7 :58 AM CDT POCT GLUCOSE DEVICE Routine 11/08/2024 5 :46 AM CDT EGFR Routine 11/08/2024 1:05 AM CDT CRP (ACUTE PHASE) Routine 11/08/2024 1:0 5 AM CDT COMPREHENSIVE METABOLIC PANEL Routine 11/08/2024 1:05 AM CDT MAGNESIUM Routine 11/08/2024 1:05 AM CDT PHOSPHORUS Routine 11/08/2024 1:05 AM CDT BLOOD CULTURE STAT 11/08/2024 1:05 AM CDT POCT GLUCOSE DEVICE Routine 11/08/2024 1 2:31 AM CDT POCT GLUCOSE DEVICE Routine 11/07/2024 9 :10 PM CDT POCT GLUCOSE DEVICE Routine 11/07/2024 4 :39 PM CDT EGFR Routine 11/07/2024 1:49 PM CDT DIFFERENTIAL AUTO Routine 11/07/2024 1:4 9 PM CDT CRP (ACUTE PHASE) Routine 11/07/2024 1:4 9 PM CDT ERYTHROCYTE SEDIMENTATION RATE Routine 11/07/2024 1:49 PM CDT THYROID FUNCTION CASCADE Routine 11/07/2024 1:49 PM CDT AMMONIA Routine 11/07/2024 1:49 PM CDT BASIC METABOLIC PANEL Routine 11/07/2024 1:49 PM CDT CBC WITH AUTO DIFFERENTIAL Routine 11/07/2024 1:49 PM CDT POCT GLUCOSE DEVICE Routine 11/07/2024 1 2:[address] CHEST ABDOMEN PELVIS W CONTRAST ED Urgent/IP Urgent 11/07/2024 12:39 PM CDT EGFR Routine 11/07/2024 12:23 PM CDT DIFFERENTIAL AUTO Routine 11/07/2024 12: 23 PM CDT LACTATE STAT 11/07/2024 12:23 PM CDT CBC WITH AUTO DIFFERENTIAL Routine 11/07/2024 12:23 PM CDT COMPREHENSIVE METABOLIC PANEL Routine 11/07/2024 12:23 PM CDT MAGNESIUM Routine 11/07/2024 12:23 PM CDT PHOSPHORUS Routine 11/07/2024 12:23 PM CDT BLOOD CULTURE STAT 11/07/2024 12:23 PM CDT POCT GLUCOSE DEVICE Routine 11/07/2024 8 :12 AM CDT POCT GLUCOSE DEVICE Routine 11/07/2024 4 :29 AM CDT POCT GLUCOSE DEVICE Routine 11/06/2024 1 1:19 PM CDT POCT GLUCOSE DEVICE Routine 11/06/2024 7 :57 PM CDT POCT GLUCOSE DEVICE Routine 11/06/2024 7 :38 PM CDT POCT GLUCOSE DEVICE Routine 11/06/2024 5 :21 PM CDT POCT GLUCOSE DEVICE Routine 11/06/2024 1 2:41 PM CDT MAGNESIUM Routine 11/06/2024 12:34 PM CDT EGFR Routine 11/06/2024 12:34 PM CDT BASIC METABOLIC PANEL Routine 11/06/2024 12:34 PM CDT EGFR Routine 11/06/2024 12:34 PM CDT DIFFERENTIAL AUTO Routine 11/06/2024 12: 34 PM CDT CREATININE Routine 11/06/2024 12:34 PM CDT CBC WITH AUTO DIFFERENTIAL Routine 11/06/2024 12:34 PM CDT POC BLOOD GAS AND CHEMISTRIES, ARTERIAL Routine 11/06/2024 9:08 AM CDT XR CHEST 1 VIEW Critical/Life-T hreatening 11/06/2024 9:08 AM CDT POCT GLUCOSE DEVICE Routine 11/06/2024 8 :29 AM CDT POCT GLUCOSE DEVICE Routine 11/06/2024 4 :46 AM CDT POCT GLUCOSE DEVICE Routine 11/06/2024 1 2:07 AM CDT POCT GLUCOSE DEVICE Routine 11/05/2024 9 :33 PM CDT POCT GLUCOSE DEVICE Routine 11/05/2024 4 :12 PM CDT MRI BRAIN WO CONTRAST IP Routine 11/05/2024 1:10 PM CDT MRI CERVICAL SPINE WO CONTRAST IP Routine 11/05/2024 12:52 PM CDT POCT GLUCOSE DEVICE Routine 11/05/2024 8 :11 AM CDT POCT GLUCOSE DEVICE Routine 11/05/2024 5 :56 AM CDT DIFFERENTIAL AUTO Routine 11/05/2024 4:5 2 AM CDT CBC WITH AUTO DIFFERENTIAL Routine 11/05/2024 4:52 AM CDT POCT GLUCOSE DEVICE Routine 11/05/2024 1 :22 AM ELECTRONICS LEAD POCT GLUCOSE DEVICE Routine 11/04/2024 1 0:34 PM ELECTRONICS LEAD URINALYSIS, MICROSCOPIC ONLY Routine 11/04/2024 6:17 PM ELECTRONICS LEAD URINE CULTURE Routine 11/04/2024 6:17 PM ELECTRONICS LEAD URINALYSIS AND REFLEX TO MICROSCOPIC AND CULTURE Routine 11/04/2024 6:17 PM ELECTRONICS LEAD POCT GLUCOSE DEVICE Routine 11/04/2024 5 :07 PM ELECTRONICS LEAD APTT Routine 11/04/2024 2:21 PM ELECTRONICS LEAD DIFFERENTIAL AUTO Routine 11/04/2024 8:5 4 AM ELECTRONICS LEAD APTT Timed 11/04/2024 8:54 AM ELECTRONICS LEAD CBC WITH AUTO DIFFERENTIAL Routine 11/04/2024 8:54 AM ELECTRONICS LEAD POCT GLUCOSE DEVICE Routine 11/04/2024 8 :47 AM ELECTRONICS LEAD POCT GLUCOSE DEVICE Routine 11/04/2024 3 :35 AM ELECTRONICS LEAD APTT Timed 11/04/2024 12:10 AM ELECTRONICS LEAD POCT GLUCOSE DEVICE Routine 11/03/2024 1 1:02 PM ELECTRONICS LEAD POCT GLUCOSE DEVICE Routine 11/03/2024 7 :11 PM ELECTRONICS LEAD APTT Timed 11/03/2024 4:26 PM ELECTRONICS LEAD POCT GLUCOSE DEVICE Routine 11/03/2024 4 :01 PM ELECTRONICS LEAD POCT GLUCOSE DEVICE Routine 11/03/2024 1 1:57 AM ELECTRONICS LEAD TRANSTHORACIC ECHO (TTE) LIMITED/FOLLOW UP WO DOPPLER/CF W CONTRAST Routine 11/03/2024 11:55 AM ELECTRONICS LEAD APTT Timed 11/03/2024 9:36 AM ELECTRONICS LEAD POCT GLUCOSE DEVICE Routine 11/03/2024 8 :00 AM ELECTRONICS LEAD POCT GLUCOSE DEVICE Routine 11/03/2024 4 :09 AM ELECTRONICS LEAD DIFFERENTIAL AUTO Routine 11/03/2024 2:2 1 AM ELECTRONICS LEAD APTT Timed 11/03/2024 2:21 AM ELECTRONICS LEAD CBC WITH AUTO DIFFERENTIAL Routine 11/03/2024 2:21 AM ELECTRONICS LEAD LIPID PANEL Routine 11/03/2024 2:21 AM ELECTRONICS LEAD POCT GLUCOSE DEVICE Routine 11/03/2024 1 2:21 AM ELECTRONICS LEAD POCT GLUCOSE DEVICE Routine 11/02/2024 8 :[address] CHEST ABDOMEN PELVIS W CONTRAST IP Routine 11/02/2024 8:01 PM ELECTRONICS LEAD TROPONIN T HIGH-SENSITIVITY 6-HOUR Timed 11/02/2024 7:24 PM ELECTRONICS LEAD POCT GLUCOSE DEVICE Routine 11/02/2024 6 :48 PM ELECTRONICS LEAD MAGNESIUM Add-On 11/02/2024 5:54 PM ELECTRONICS LEAD APTT STAT 11/02/2024 5:54 PM ELECTRONICS LEAD CBC WITHOUT DIFFERENTIAL STAT 11/02/2024 5:54 PM ELECTRONICS LEAD PROTIME-INR STAT 11/02/2024 5:54 PM ELECTRONICS LEAD BLOOD CULTURE STAT 11/02/2024 5:54 PM ELECTRONICS LEAD BLOOD CULTURE STAT 11/02/2024 5:54 PM ELECTRONICS LEAD TROPONIN T HIGH-SENSITIVITY 4-HR Timed 11/02/2024 4:15 PM ELECTRONICS LEAD SEPSIS LACTATE WITH REFLEX Timed 11/02/2024 3:15 PM ELECTRONICS LEAD TROPONIN T HIGH-SENSITIVITY 2-HOUR Timed 11/02/2024 3:[address] HEAD WO CONTRAST ED 11/02/2024 2 :16 PM ELECTRONICS LEAD INFLUENZA A/B, RSV, AND COVID-19 PCR STAT 11/02/2024 1:59 PM ELECTRONICS LEAD XR CHEST 1 VIEW ED Urgent/IP Urgent 11/02/2024 1:38 PM ELECTRONICS LEAD ECG 12-LEAD STAT 11/02/2024 1:19 PM ELECTRONICS LEAD URINALYSIS, MICROSCOPIC ONLY STAT 11/02/2024 12:51 PM ELECTRONICS LEAD URINE CULTURE Add-On 11/02/2024 12:51 PM ELECTRONICS LEAD URINALYSIS AND REFLEX TO MICROSCOPIC AND CULTURE STAT 11/02/2024 12:51 PM ELECTRONICS LEAD CRP (ACUTE PHASE) STAT 11/02/2024 12: 39 PM ELECTRONICS LEAD ERYTHROCYTE SEDIMENTATION RATE STAT 11/02/2024 12:39 PM ELECTRONICS LEAD TROPONIN T HIGH-SENSITIVITY SERIES (BASELINE, 2HR, 4HR, 6HR) STAT 11/02/2024 12:39 PM ELECTRONICS LEAD TROPONIN T HIGH-SENSITIVITY STAT 11/02/2024 12:39 PM ELECTRONICS LEAD EGFR STAT 11/02/2024 12:39 PM ELECTRONICS LEAD DIFFERENTIAL AUTO STAT 11/02/2024 12: 39 PM ELECTRONICS LEAD SEPSIS LACTATE WITH REFLEX STAT 11/02/2024 12:39 PM ELECTRONICS LEAD COMPREHENSIVE METABOLIC PANEL STAT 11/02/2024 12:39 PM ELECTRONICS LEAD CBC WITH AUTO DIFFERENTIAL STAT 11/02/2024 12:39 PM ELECTRONICS LEAD COVID-19 CORONAVIRUS RNA Routine 10/17/2024 10:20 AM ELECTRONICS LEAD POCT GLUCOSE DEVICE Routine 10/17/2024 8 :41 AM ELECTRONICS LEAD POCT GLUCOSE DEVICE Routine 10/16/2024 8 :09 PM ELECTRONICS LEAD POCT GLUCOSE DEVICE Routine 10/16/2024 4 :18 PM ELECTRONICS LEAD POCT GLUCOSE DEVICE Routine 10/16/2024 1 1:37 AM ELECTRONICS LEAD POCT GLUCOSE DEVICE Routine 10/16/2024 8 :58 AM ELECTRONICS LEAD POCT GLUCOSE DEVICE Routine 10/15/2024 9 :04 PM ELECTRONICS LEAD POCT GLUCOSE DEVICE Routine 10/15/2024 4 :04 PM ELECTRONICS LEAD POCT GLUCOSE DEVICE Routine 10/15/2024 1 :17 PM ELECTRONICS LEAD POCT GLUCOSE DEVICE Routine 10/15/2024 9 :12 AM ELECTRONICS LEAD EGFR Routine 10/15/2024 5:04 AM ELECTRONICS LEAD DIFFERENTIAL AUTO Routine 10/15/2024 5:0 4 AM ELECTRONICS LEAD CBC WITH AUTO DIFFERENTIAL Routine 10/15/2024 5:04 AM ELECTRONICS LEAD COMPREHENSIVE METABOLIC PANEL Routine 10/15/2024 5:04 AM ELECTRONICS LEAD POCT GLUCOSE DEVICE Routine 10/14/2024 8 :00 PM ELECTRONICS LEAD POCT GLUCOSE DEVICE Routine 10/14/2024 4 :28 PM ELECTRONICS LEAD POCT GLUCOSE DEVICE Routine 10/14/2024 9 :03 AM ELECTRONICS LEAD EGFR Routine 10/14/2024 5:09 AM ELECTRONICS LEAD DIFFERENTIAL AUTO Routine 10/14/2024 5:0 9 AM ELECTRONICS LEAD CBC WITH AUTO DIFFERENTIAL Routine 10/14/2024 5:09 AM ELECTRONICS LEAD COMPREHENSIVE METABOLIC PANEL Routine 10/14/2024 5:09 AM ELECTRONICS LEAD POCT GLUCOSE DEVICE Routine 10/13/2024 9 :39 PM ELECTRONICS LEAD POCT GLUCOSE DEVICE Routine 10/13/2024 5 :05 PM ELECTRONICS LEAD POCT GLUCOSE DEVICE Routine 10/13/2024 1 :15 PM ELECTRONICS LEAD POCT GLUCOSE DEVICE Routine 10/13/2024 8 :15 AM ELECTRONICS LEAD EGFR Routine 10/13/2024 5:17 AM ELECTRONICS LEAD DIFFERENTIAL AUTO Routine 10/13/2024 5:1 7 AM ELECTRONICS LEAD CBC WITH AUTO DIFFERENTIAL Routine 10/13/2024 5:17 AM ELECTRONICS LEAD COMPREHENSIVE METABOLIC PANEL Routine 10/13/2024 5:17 AM ELECTRONICS LEAD POCT GLUCOSE DEVICE Routine 10/12/2024 8 :39 PM ELECTRONICS LEAD POCT GLUCOSE DEVICE Routine 10/12/2024 5 :40 PM ELECTRONICS LEAD POCT GLUCOSE DEVICE Routine 10/12/2024 5 :01 PM ELECTRONICS LEAD POCT GLUCOSE DEVICE Routine 10/12/2024 1 1:14 AM ELECTRONICS LEAD EGFR Routine 10/12/2024 9:15 AM ELECTRONICS LEAD DIFFERENTIAL AUTO Routine 10/12/2024 9:1 5 AM ELECTRONICS LEAD CBC WITH AUTO DIFFERENTIAL Routine 10/12/2024 9:15 AM ELECTRONICS LEAD COMPREHENSIVE METABOLIC PANEL Routine 10/12/2024 9:15 AM ELECTRONICS LEAD POCT GLUCOSE DEVICE Routine 10/12/2024 7 :46 AM ELECTRONICS LEAD POCT GLUCOSE DEVICE Routine 10/11/2024 9 :10 PM ELECTRONICS LEAD POCT GLUCOSE DEVICE Routine 10/11/2024 3 :37 PM ELECTRONICS LEAD POCT GLUCOSE DEVICE Routine 10/11/2024 1 1:20 AM ELECTRONICS LEAD POCT GLUCOSE DEVICE Routine 10/11/2024 7 :52 AM ELECTRONICS LEAD MAGNESIUM Routine 10/11/2024 5:35 AM ELECTRONICS LEAD EGFR Routine 10/11/2024 5:35 AM ELECTRONICS LEAD DIFFERENTIAL AUTO Routine 10/11/2024 5:3 5 AM ELECTRONICS LEAD CBC WITH AUTO DIFFERENTIAL Routine 10/11/2024 5:35 AM ELECTRONICS LEAD COMPREHENSIVE METABOLIC PANEL Routine 10/11/2024 5:35 AM ELECTRONICS LEAD MRSA ONLY (STAPHYLOCOCCUS AUREUS) PCR Routine 10/10/2024 9:32 PM ELECTRONICS LEAD POCT GLUCOSE DEVICE Routine 10/10/2024 9 :23 PM ELECTRONICS LEAD TROPONIN T HIGH-SENSITIVITY 6-HOUR Timed 10/10/2024 8:52 PM ELECTRONICS LEAD TROPONIN T HIGH-SENSITIVITY 2-HOUR Timed 10/10/2024 4:43 PM ELECTRONICS LEAD URINALYSIS, MICROSCOPIC ONLY STAT 10/10/2024 4:16 PM ELECTRONICS LEAD URINE CULTURE STAT 10/10/2024 4:16 PM ELECTRONICS LEAD BLOOD CULTURE STAT 10/10/2024 4:16 PM ELECTRONICS LEAD URINALYSIS AND REFLEX TO MICROSCOPIC AND CULTURE STAT 10/10/2024 4:[address] CHEST ABDOMEN PELVIS W CONTRAST ED 10/10/2024 3:34 PM ELECTRONICS LEAD TROPONIN T HIGH-SENSITIVITY SERIES (BASELINE, 2HR, 4HR, 6HR) STAT 10/10/2024 2:54 PM ELECTRONICS LEAD SEPSIS LACTATE WITH REFLEX Timed 10/10/2024 2:54 PM ELECTRONICS LEAD INFLUENZA A/B, RSV, AND COVID-19 PCR STAT 10/10/2024 2:54 PM ELECTRONICS LEAD EGFR STAT 10/10/2024 12:10 PM ELECTRONICS LEAD DIFFERENTIAL AUTO STAT 10/10/2024 12: 10 PM ELECTRONICS LEAD SEPSIS LACTATE WITH REFLEX Routine 10/10/2024 12:10 PM ELECTRONICS LEAD COMPREHENSIVE METABOLIC PANEL STAT 10/10/2024 12:10 PM ELECTRONICS LEAD CBC WITH AUTO DIFFERENTIAL STAT 10/10/2024 12:[address] HEAD WO CONTRAST ED 10/10/2024 1 1:40 AM ELECTRONICS LEAD XR CHEST 1 VIEW ED 10/10/2024 11:25 AM ELECTRONICS LEAD ECG 12-LEAD STAT 10/10/2024 11:02 AM ELECTRONICS LEAD POCT GLUCOSE DEVICE Routine 10/10/2024 1 0:38 AM ELECTRONICS LEAD POCT GLUCOSE DEVICE Routine 10/08/2024 1 1:13 AM ELECTRONICS LEAD POCT GLUCOSE DEVICE Routine 10/08/2024 8 :49 AM ELECTRONICS LEAD POCT GLUCOSE DEVICE Routine 10/07/2024 7 :26 PM ELECTRONICS LEAD POCT GLUCOSE DEVICE Routine 10/07/2024 4 :03 PM ELECTRONICS LEAD POCT GLUCOSE DEVICE Routine 10/07/2024 1 1:23 AM ELECTRONICS LEAD POCT GLUCOSE DEVICE Routine 10/07/2024 7 :19 AM ELECTRONICS LEAD POCT GLUCOSE DEVICE Routine 10/06/2024 8 :43 PM ELECTRONICS LEAD POCT GLUCOSE DEVICE Routine 10/06/2024 4 :13 PM ELECTRONICS LEAD POCT GLUCOSE DEVICE Routine 10/06/2024 1 1:39 AM ELECTRONICS LEAD POCT GLUCOSE DEVICE Routine 10/06/2024 7 :33 AM ELECTRONICS LEAD POCT GLUCOSE DEVICE Routine 10/05/2024 7 :48 PM ELECTRONICS LEAD POCT GLUCOSE DEVICE Routine 10/05/2024 3 :29 PM ELECTRONICS LEAD POCT GLUCOSE DEVICE Routine 10/05/2024 1 1:29 AM ELECTRONICS LEAD POCT GLUCOSE DEVICE Routine 10/05/2024 7 :29 AM ELECTRONICS LEAD POCT GLUCOSE DEVICE Routine 10/04/2024 8 :48 PM ELECTRONICS LEAD POCT GLUCOSE DEVICE Routine 10/04/2024 5 :36 PM ELECTRONICS LEAD POCT GLUCOSE DEVICE Routine 10/04/2024 3 :37 PM ELECTRONICS LEAD POCT GLUCOSE DEVICE Routine 10/04/2024 1 1:20 AM ELECTRONICS LEAD POCT GLUCOSE DEVICE Routine 10/04/2024 7 :24 AM ELECTRONICS LEAD EGFR Routine 10/04/2024 5:02 AM ELECTRONICS LEAD DIFFERENTIAL AUTO Routine 10/04/2024 5:0 2 AM ELECTRONICS LEAD BASIC METABOLIC PANEL Routine 10/04/2024 5:02 AM ELECTRONICS LEAD CBC WITH AUTO DIFFERENTIAL Routine 10/04/2024 5:02 AM ELECTRONICS LEAD POCT GLUCOSE DEVICE Routine 10/03/2024 7 :27 PM ELECTRONICS LEAD POCT GLUCOSE DEVICE Routine 10/03/2024 4 :19 PM ELECTRONICS LEAD POCT GLUCOSE DEVICE Routine 10/03/2024 1 1:26 AM ELECTRONICS LEAD EGFR Routine 10/03/2024 11:17 AM ELECTRONICS LEAD COMPREHENSIVE METABOLIC PANEL Routine 10/03/2024 11:17 AM ELECTRONICS LEAD POCT GLUCOSE DEVICE Routine 10/03/2024 7 :33 AM ELECTRONICS LEAD POCT GLUCOSE DEVICE Routine 10/02/2024 1 1:19 PM ELECTRONICS LEAD POCT GLUCOSE DEVICE Routine 10/02/2024 7 :41 PM ELECTRONICS LEAD POCT GLUCOSE DEVICE Routine 10/02/2024 4 :58 PM ELECTRONICS LEAD POCT GLUCOSE DEVICE Routine 10/02/2024 1 1:43 AM ELECTRONICS LEAD POCT GLUCOSE DEVICE Routine 10/02/2024 7 :28 AM ELECTRONICS LEAD EGFR Routine 10/02/2024 3:50 AM ELECTRONICS LEAD DIFFERENTIAL AUTO Routine 10/02/2024 3:5 0 AM ELECTRONICS LEAD CBC WITH AUTO DIFFERENTIAL Routine 10/02/2024 3:50 AM ELECTRONICS LEAD COMPREHENSIVE METABOLIC PANEL Routine 10/02/2024 3:50 AM ELECTRONICS LEAD POCT GLUCOSE DEVICE Routine 10/01/2024 8 :27 PM ELECTRONICS LEAD TROPONIN T HIGH-SENSITIVITY Routine 10/01/2024 5:03 PM ELECTRONICS LEAD POCT GLUCOSE DEVICE Routine 10/01/2024 4 :46 PM ELECTRONICS LEAD AMMONIA Routine 10/01/2024 1:59 PM ELECTRONICS LEAD SEPSIS LACTATE WITH REFLEX STAT 10/01/2024 1:59 PM ELECTRONICS LEAD TROPONIN T HIGH-SENSITIVITY Routine 10/01/2024 1:59 PM ELECTRONICS LEAD ECG 12-LEAD Routine 10/01/2024 1:05 PM ELECTRONICS LEAD POCT GLUCOSE DEVICE Routine 10/01/2024 1 2:08 PM ELECTRONICS LEAD CTA HEAD NECK W WO CONTRAST ED Urgent/IP Urgent 10/01/2024 11:35 AM ELECTRONICS LEAD POCT GLUCOSE DEVICE Routine 10/01/2024 1 0:[address] STROKE PROTOCOL WO CONTRAST ED Urgent/IP Urgent 10/01/2024 10:39 AM ELECTRONICS LEAD POCT GLUCOSE DEVICE Routine 10/01/2024 8 :12 AM ELECTRONICS LEAD EGFR STAT 10/01/2024 12:18 AM ELECTRONICS LEAD DIFFERENTIAL AUTO STAT 10/01/2024 12: 18 AM ELECTRONICS LEAD PHOSPHORUS STAT 10/01/2024 12:18 AM ELECTRONICS LEAD MAGNESIUM STAT 10/01/2024 12:18 AM ELECTRONICS LEAD BASIC METABOLIC PANEL STAT 10/01/2024 12:18 AM ELECTRONICS LEAD LACTATE STAT 10/01/2024 12:18 AM ELECTRONICS LEAD CBC WITH AUTO DIFFERENTIAL STAT 10/01/2024 12:18 AM ELECTRONICS LEAD XR CHEST 1 VIEW ED Urgent/IP Urgent 10/01/2024 12:03 AM ELECTRONICS LEAD POCT GLUCOSE DEVICE Routine 09/30/2024 1 0:19 PM ELECTRONICS LEAD POCT GLUCOSE DEVICE Routine 09/30/2024 4 :03 PM ELECTRONICS LEAD POCT GLUCOSE DEVICE Routine 09/30/2024 1 1:04 AM ELECTRONICS LEAD POCT GLUCOSE DEVICE Routine 09/30/2024 7 :25 AM ELECTRONICS LEAD EGFR Routine 09/30/2024 4:27 AM ELECTRONICS LEAD DIFFERENTIAL AUTO Routine 09/30/2024 4:2 7 AM ELECTRONICS LEAD BASIC METABOLIC PANEL Routine 09/30/2024 4:27 AM ELECTRONICS LEAD CBC WITH AUTO DIFFERENTIAL Routine 09/30/2024 4:27 AM ELECTRONICS LEAD POCT GLUCOSE DEVICE Routine 09/29/2024 7 :36 PM ELECTRONICS LEAD POCT GLUCOSE DEVICE Routine 09/29/2024 4 :13 PM ELECTRONICS LEAD POCT GLUCOSE DEVICE Routine 09/29/2024 1 1:25 AM ELECTRONICS LEAD POCT GLUCOSE DEVICE Routine 09/29/2024 1 1:23 AM ELECTRONICS LEAD FOLATE Add-On 09/29/2024 10:58 AM ELECTRONICS LEAD VITAMIN B12 Add-On 09/29/2024 10:58 AM ELECTRONICS LEAD IRON PROFILE W/ IBC Add-On 09/29/2024 1 0:58 AM ELECTRONICS LEAD FERRITIN Add-On 09/29/2024 10:58 AM ELECTRONICS LEAD POCT GLUCOSE DEVICE Routine 09/29/2024 7 :56 AM ELECTRONICS LEAD ECG 12-LEAD Routine 09/29/2024 7:17 AM ELECTRONICS LEAD EGFR Routine 09/29/2024 6:21 AM ELECTRONICS LEAD DIFFERENTIAL AUTO Routine 09/29/2024 6:2 1 AM ELECTRONICS LEAD CBC WITH AUTO DIFFERENTIAL Routine 09/29/2024 6:21 AM ELECTRONICS LEAD PHOSPHORUS Routine 09/29/2024 6:21 AM ELECTRONICS LEAD MAGNESIUM Routine 09/29/2024 6:21 AM ELECTRONICS LEAD COMPREHENSIVE METABOLIC PANEL Routine 09/29/2024 6:21 AM ELECTRONICS LEAD POCT GLUCOSE DEVICE Routine 09/29/2024 2 :02 AM ELECTRONICS LEAD POCT GLUCOSE DEVICE Routine 09/28/2024 8 :40 PM ELECTRONICS LEAD POCT GLUCOSE DEVICE Routine 09/28/2024 5 :39 PM ELECTRONICS LEAD TRANSTHORACIC ECHO (TTE) COMPLETE W DOPPLER/CF WO CONTRAST Routine 09/28/2024 4:40 PM ELECTRONICS LEAD EGFR STAT 09/28/2024 12:13 PM ELECTRONICS LEAD DIFFERENTIAL AUTO STAT 09/28/2024 12: 13 PM ELECTRONICS LEAD HEMOGLOBIN A1C STAT 09/28/2024 12:13 PM ELECTRONICS LEAD PHOSPHORUS STAT 09/28/2024 12:13 PM ELECTRONICS LEAD MAGNESIUM STAT 09/28/2024 12:13 PM ELECTRONICS LEAD THYROID FUNCTION CASCADE STAT 09/28/2024 12:13 PM ELECTRONICS LEAD BASIC METABOLIC PANEL STAT 09/28/2024 12:13 PM ELECTRONICS LEAD CBC WITH AUTO DIFFERENTIAL STAT 09/28/2024 12:13 PM ELECTRONICS LEAD URINALYSIS, MICROSCOPIC ONLY STAT 09/28/2024 8:45 AM ELECTRONICS LEAD URINE CULTURE STAT 09/28/2024 8:45 AM ELECTRONICS LEAD URINALYSIS AND REFLEX TO MICROSCOPIC AND CULTURE STAT 09/28/2024 8:45 AM ELECTRONICS LEAD POCT GLUCOSE DEVICE Routine 09/28/2024 8 :44 AM ELECTRONICS LEAD INFLUENZA A/B, RSV, AND COVID-19 PCR STAT 09/28/2024 4:59 AM ELECTRONICS LEAD XR KNEE RIGHT 1 OR 2 VIEWS ED 09/28/2024 1:[address] PELVIS WO CONTRAST ED 09/27/2024 6:49 PM ELECTRONICS LEAD XR HIP LEFT W PELVIS 2 OR 3 VIEWS ED 09/27/2024 4:49 PM ELECTRONICS LEAD ECG 12-LEAD STAT 09/27/2024 4:24 PM ELECTRONICS LEAD EGFR STAT 09/27/2024 4:09 PM ELECTRONICS LEAD DIFFERENTIAL AUTO STAT 09/27/2024 4:0 9 PM ELECTRONICS LEAD COMPREHENSIVE METABOLIC PANEL STAT 09/27/2024 4:09 PM ELECTRONICS LEAD CBC WITH AUTO DIFFERENTIAL STAT 09/27/2024 4:09 PM ELECTRONICS LEAD ALBUMIN CREATININE RATIO, URINE Routine 11/01/2023 9:30 AM ELECTRONICS LEAD Medicare annual wellness visit, subsequent Neuropathy Fibromyalgia Dyslipidemia Type 2 diabetes mellitus with stage 3b chronic kidney disease, without long-term current use of insulin (HCC) Stage 3b chronic kidney disease (HCC) DEXA AXIAL SKELETON BONE DENSITY 1 OR MORE SITES 02/29/2020 9:31 AM CDT from Last 3 Months or Most Recently Relevant to Health Maintenance Results * POCT glucose (11/14/2024 9:05 AM CDT) [facility] Glucose, POC 152 70 - 199 mg/dL Comment:Testing performed by : [address] [id number] Glucose comment 1 Use This Result MARCELINO HAYWOOD Comment:Testing performed by : [address] [id number] Glucose comment 2 RN/MD Notified MARCELINO HAYWOOD Comment:Testing performed by : [address] [id number] Blood 11/14/2024 9:05 AM CDT 11/14/2024 9:05 AM CDT us Nahid Kmi MD LAB POCT ORDERABLES - DEV ICE Final Result MARCELINO HAYWOOD [address] [facility] Department [place] [address] * POCT glucose (11/13/2024 8:13 PM CDT) Glucose, POC 184 70 - 199 mg/dL Comment:Testing performed by : [address] [id number] Blood 11/13/2024 8:13 PM CDT 11/13/2024 8:13 PM CDT Conor Ventura MD LAB POCT ORDERABLE S - DEVICE Final Result Performing Organization Address [facility] de Phone Number [place] [id number] [facility] [place] [address] * POCT glucose (11/13/2024 7:49 AM CDT) Glucose, POC 139 70 - 199 mg/dL Comment:Testing performed by : [address] [id number] Glucose comment 1 Use This Result MARCELINO Comment:Testing performed by : [address] [id number] Glucose comment 2 RN/MD Notified MARCELINO Comment:Testing performed by : [address] [id number] Blood 11/13/2024 7:49 AM CDT 11/13/2024 7:49 AM CDT Conor Ventura MD LAB POCT ORDERABLE S - DEVICE Final Result Performing Organization Address [facility] de Phone Number [facility] [address] [facility] [place] [address] * POCT glucose (11/13/2024 4:21 AM CDT) Glucose, POC 131 70 - 199 mg/dL Comment:Testing performed by : [address] [id number] Glucose comment 1 Use This Result MARCELINO Comment:Testing performed by : [address] [id number] Blood 11/13/2024 4:21 AM CDT 11/13/2024 4:21 AM CDT Conor Ventura MD LAB POCT ORDERABLE S - DEVICE Final Result [facility] [address] [address] * POCT glucose (11/13/2024 12:22 AM CDT) Glucose, POC 174 70 - 199 mg/dL Comment:Testing performed by : [facility], [address] [place] [address]., [id number] Glucose comment 1 Use This Result MARCELINO Comment:Testing performed by : [facility], [address] [place] [address]., [id number] Blood 11/13/2024 12:2 2 AM CDT 11/13/2024 12:22 AM CDT Result [facility] Conor Ventura MD LAB POCT ORDERABLE S - DEVICE Final Result Performing Organization Address [facility] Co de Phone Number [facility] [address] * POCT glucose (11/12/2024 8:50 PM CDT) Glucose, POC 167 70 - 199 mg/dL Comment:Testing performed by : [address] [id number] Blood 11/12/2024 8:50 PM CDT 11/12/2024 8:50 PM CDT Result [facility] Conor Ventura MD LAB POCT ORDERABLE S - DEVICE Final Result [facility] [place] [address] * POCT glucose (11/12/2024 5:43 PM CDT) Glucose, POC 157 70 - 199 mg/dL Comment:Testing performed by : [address] [id number] Glucose comment 1 Use This Result MARCELINO Comment:Testing performed by : [address] [id number] Glucose comment 2 RN/MD Notified MARCELINO Comment:Testing performed by : [address] [id number] Blood 11/12/2024 5:43 PM CDT 11/12/2024 5:43 PM CDT Conor Ventura MD LAB POCT ORDERABLE S - DEVICE Final Result Performing Organization Address [facility] de Phone Number MARCELINO [facility] [place] [address] * POCT glucose (11/12/2024 11:50 AM CDT) [facility] Signature Glucose, POC 175 70 - 199 mg/dL Comment:Testing performed by : [address] [id number] Glucose comment 1 Use This Result MARCELINO Comment:Testing performed by : [address] [id number] Glucose comment 2 RN/MD Notified MARCELINO Comment:Testing performed by : [address] [id number] Blood 11/12/2024 11:5 0 AM CDT 11/12/2024 11:50 AM CDT Conor Ventura MD LAB POCT ORDERABLE S - DEVICE Final Result Performing Organization Address [facility] Co de Phone Number MARCELINO [facility] [place] [place] [address] * POCT glucose (11/12/2024 8:11 AM CDT) Glucose, POC 120 70 - 199 mg/dL Comment:Testing performed by : [address] [id number] Glucose comment 1 Use This Result MARCELINO Comment:Testing performed by : [facility], [address] [place] [address]., [id number] Glucose comment 2 RN/MD Notified MARCELINO Comment:Testing performed by : [address] [address] Blood 11/12/2024 8:11 AM CDT 11/12/2024 8:11 AM CDT Conor Ventura MD LAB POCT ORDERABLE S - DEVICE Final Result Performing Organization Address [facility] Co de Phone Number [address] [employer] [place] [address] * POCT glucose (11/12/2024 4:20 AM CDT) Glucose, POC 147 70 - 199 mg/dL Comment:Testing performed by : [address] [address] Glucose comment 1 Use This Result MARCELINO Comment:Testing performed by : [address] [address] Blood 11/12/2024 4:20 AM CDT 11/12/2024 4:20 AM CDT Conor Ventura MD LAB POCT ORDERABLE S - DEVICE Final Result Performing Organization Address [facility]/ZIP Co de Phone Number [address] [employer] [place] [address] * POCT glucose (11/11/2024 11:52 PM CDT) Glucose, POC 153 70 - 199 mg/dL Comment:Testing performed by : [address] [address] Glucose comment 1 Use This Result MARCELINO Comment:Testing performed by : [address] [address] Blood 11/11/2024 11:5 2 PM CDT 11/11/2024 11:52 PM CDT Result [facility] Conor Ventura MD LAB POCT ORDERABLE S - DEVICE Final Result Performing Organization Address [facility] de Phone Number [address] [address] * POCT glucose (11/11/2024 8:09 PM CDT) Glucose, POC 184 70 - 199 mg/dL Comment:Testing performed by : [address] [address] Glucose comment 1 Use This Result [facility] Comment:Testing performed by : [address] [address] Blood 11/11/2024 8:09 PM CDT 11/11/2024 8:09 PM CDT Result [facility] Conor Ventura MD LAB POCT ORDERABLE S - DEVICE Final Result Performing Organization Address [facility] de Phone Number [address] [address] * POCT glucose (11/11/2024 5:40 PM CDT) Glucose, POC 132 70 - 199 mg/dL Comment:Testing performed by : [address] [address] Glucose comment 1 Use This Result MARCELINO Comment:Testing performed by : [address] [address] Blood 11/11/2024 5:40 PM CDT 11/11/2024 5:40 PM CDT Conor Ventura MD LAB POCT ORDERABLE S - DEVICE Final Result Performing Organization Address City/[facility]/ZIP Co de Phone Number MARCELINO [address] [facility] Department [place] [address] * POCT glucose (11/11/2024 12:01 PM CDT) [facility] Glucose, POC 177 70 - 199 mg/dL Comment:Testing performed by : [address] [address] Glucose comment 1 Use This Result MARCELINO HAYWOOD Comment:Testing performed by : [address] [address] Glucose comment 2 RN/MD Notified MARCELINO Comment:Testing performed by : [address] [address] Blood 11/11/2024 12:0 1 PM CDT 11/11/2024 12:01 PM CDT [facility] Prakash Ventura MD LAB POCT ORDERABLE S - DEVICE Final Result Performing Organization Address City/[facility] Co de Phone Number MARCELINO [address] [facility] [place] [address] * eGFR (11/10/2024 4:20 AM CDT) [facility] eGFR 84 >=60 mL/min/1. 73 m2 Comment: Interpretive Data Reference Interval Normal >/= 90 mL/min/1.73m2 Mildly decreased* 60 - 89 mL/min/1.73m2 Mildly to moderately decreased 45 - 59 mL/min/1.73m2 Moderately to severely decreased 30 - 44 mL/min/1.73m2 Severely decreased 15 - 29 mL/min/1.73m2 Kidney Failure < 15 mL/min/1.73m2 *Relative to young adult level Estimated glomerular filtration rate is determined by the 2020 CKD-EPI equation recommended by the National Kidney Foundation (A Unifying Approach to GFR Estimation: Recommendations of the NKF-ASK Task Force on Reassessing the Inclusion of Race in Diagnosing Kidney Disease, JASN 2020). The CKD-EPI equation should not be used for patients with unstable renal function and has not been validated in children and those over 70. Current interpretive data was last reviewed 2021. Testing performed by: [address] [address] Blood 11/10/2024 4:20 AM CDT 11/10/2024 4:39 AM CDT Conor Ventura MD LAB BLOOD ORDERABL ES Final Result [facility] [address] [facility] Department [place] [address] * Differential, auto (11/10/2024 4:20 AM CDT) Neutrophil abs 4.5 1.5 - 6.5 K/cumm Comment:Testing performed by : [address] [address] Imm gran abs 0.0 0.0 - 0.1 K/cumm MARCELINO Comment:Testing performed by : [address] [address] Lymphocyte abs 1.1 0.8 - 3.3 K/cumm MARCELINO Comment:Testing performed by : [address] [address] Monocyte abs 0.5 0.2 - 0.8 K/cumm MARCELINO Comment:Testing performed by : [address] [address] Eosinophil abs 0.2 0.0 - 0.5 K/cumm MARCELINO Comment:Testing performed by : [address] [address] Basophil abs 0.0 0.0 - 0.1 K/cumm MARCELINO Comment:Testing performed by : [address] [address] Neutrophil pct 70.4 % MARCELINO Comment: Interpretive Data Percent cell count reference ranges are not reported, since discordance with absolute values may lead to misinterpretation of CBC data. Current Interpretive Data was last revised on 2017. Testing performed by: [address] [address] Imm gran pct 0.3 % [facility] Comment: Interpretive Data Percent cell count reference ranges are not reported, since discordance with absolute values may lead to misinterpretation of CBC data. Current Interpretive Data was last revised on 2017. Testing performed by: [address] [address] Lymphocyte pct 16.9 % [facility] Comment: Interpretive Data Percent cell count reference ranges are not reported, since discordance with absolute values may lead to misinterpretation of CBC data. Current Interpretive Data was last revised on 2017. Testing performed by: [address] [address] Monocyte pct 8.4 % [facility] Comment: Interpretive Data Percent cell count reference ranges are not reported, since discordance with absolute values may lead to misinterpretation of CBC data. Current Interpretive Data was last revised on 2017. Testing performed by: [address] [address] Eosinophil pct 3.5 % [facility] Comment: Interpretive Data Percent cell count reference ranges are not reported, since discordance with absolute values may lead to misinterpretation of CBC data. Current Interpretive Data was last revised on 2017. Testing performed by: [address] [address] Basophil pct 0.5 % [facility] Comment: Interpretive Data Percent cell count reference ranges are not reported, since discordance with absolute values may lead to misinterpretation of CBC data. Current Interpretive Data was last revised on 2017. Testing performed by: [address] [address] Blood 11/10/2024 4:20 AM CDT 11/10/2024 4:39 AM CDT us Ananya MEANS LAB BLOOD ORDERABLES Final Re sult MARCELINO [address] [facility] Department [place] [address] * (ABNORMAL) CBC with auto differential (11/10/2024 4:20 AM CDT) [facility] WBC 6.3 3.8 - 9.9 K/cumm Comment:Testing performed by : [address], [address] Hgb 12.3 11.9 - 15.5 g/dL MARCELINO Comment:Testing performed by : [address], [address] Hct 39.0 35.6 - 45.5 % MARCELINO Comment:Testing performed by : [address], [address] Plt 326 150 - 400 K/cumm MARCELINO Comment:Testing performed by : [address], [address] MPV 10.3 9.1 - 12.3 fL MARCELINO Comment:Testing performed by : [address], [address] RBC 4.63 3.90 - 5.20 M/cumm MARCELINO Comment:Testing performed by : [address], [address] MCV 84.2 81.3 - 96.4 fL MARCELINO Comment:Testing performed by : [address], [address] MCH 26.6(L) 27.1 - 33.3 pg MARCELINO Comment:Testing performed by : [address], [address] MCHC 31.5(L) 32.3 - 35.7 g/dL MARCELINO Comment:Testing performed by : [address], [address] RDW CV 17.0(H) 11.1 - 14.9 % MARCELINO Comment:Testing performed by : [address], [address] RDW SD 52.2(H) 35.7 - 48.1 fL MARCELINO Comment:Testing performed by : [address], [address] NRBC abs 0.00 0.00 - 0.01 K/cumm MARCELINO Comment:Testing performed by : [address] [address] Blood 11/10/2024 4:20 AM CDT 11/10/2024 4:39 AM CDT Ananya MEANS LAB BLOOD ORDERABLES Final Re sult Performing Organization Address City/[facility]/ZIP Co de Phone Number [address] [place] [address] * (ABNORMAL) CRP (acute phase) (11/10/2024 4:20 AM CDT) CRP 45.2(H) <=10.0 mg/L Comment:Testing performed by : [address] [address] Blood 11/10/2024 4:20 AM CDT 11/10/2024 4:39 AM CDT Conor Ventura MD LAB BLOOD ORDERABL ES Final Result Performing Organization Address [facility] de Phone Number [address] [address] * Phosphorus (11/10/2024 4:20 AM CDT) Phosphorus, pl 3.4 2.3 - 4.5 mg/dL Comment:Testing performed by : [address] [address] Blood 11/10/2024 4:20 AM CDT 11/10/2024 4:39 AM CDT Conor Ventura MD LAB BLOOD ORDERABL ES Final Result Performing Organization Address City/[facility]/ZIP Co de Phone Number [address] [address] * Magnesium (11/10/2024 4:20 AM CDT) Pathologist [facility] Magnesium 2.2 1.4 - 2.5 mg/dL Comment:Testing performed by : [address] [address] Blood 11/10/2024 4:20 AM CDT 11/10/2024 4:39 AM CDT Conor Ventura MD LAB BLOOD ORDERABL ES Final Result [facility] [address] [facility] Department of Laboratories [place], [place] [id number] * (ABNORMAL) Comprehensive metabolic panel (11/10/2024 4:20 AM CDT) Pathologist [facility] Sodium 141 135 - 145 mmol/L Comment:Testing performed by : [address] [address] Potassium, pl 3.2(L) 3.3 - 4.9 mmol/L MARCELINO Comment: Hemolyzed; Potassium value may be falsely elevated by as much as 1.0 mmol/L. Suggest redraw and reanalysis. Testing performed by: [address] [address] Chloride 105 97 - 110 mmol/L MARCELINO Comment:Testing performed by : [address] [address] CO2 25 22 - 32 mmol/L MARCELINO Comment:Testing performed by : [address] [address] Anion gap 11 2 - 15 mmol/L MARCELINO Comment:Testing performed by : [address] [address] BUN 8 6 - 25 mg/dL MARCELINO Comment:Testing performed by : [address] [address] Creatinine 0.71 0.60 - 1.10 mg/dL MARCELINO Comment:Testing performed by : [address] [address] Glucose 143 70 - 199 mg/dL MARCELINO Comment: Interpretive Data Fasting glucose >/= 126 mg/dl is diagnostic for diabetes. Fasting is defined as no caloric intake for at least 8 hours. Fasting glucose between 100 mg/dl to 125 mg/dl is diagnostic of prediabetes. In a patient with classic symptoms of hyperglycemia or hyperglycemic crisis, a random glucose >/= 200 mg/dl is diagnostic for diabetes. In the absence of unequivocal hyperglycemia, results should be confirmed by repeat testing. The classification and Diagnosis of Diabetes Diabetes Care 2021; 46: S19-S40. Current interpretive data was last revised 2022. Testing performed by: [address] [address] Calcium 9.7 8.5 - 10.3 mg/dL MARCELINO Comment:Testing performed by : [address] [address] Bilirubin, total 0.2 0.1 - 1.2 mg/dL MARCELINO Comment:Testing performed by : [address] [address] Protein, pl 6.3(L) 6.5 - 8.5 g/dL MARCELINO Comment:Testing performed by : [address] [address] Albumin 2.9(L) 3.5 - 5.0 g/dL MARCELINO Comment:Testing performed by : [address] [address] Alk phos 97 40 - 130 Units/L MARCELINO Comment:Testing performed by : [address] [address] ALT 10 7 - 45 Units/L MARCELINO Comment:Testing performed by : [address] [address] AST 23 10 - 45 Units/L MARCELINO Comment: Hemolyzed; result may be falsely elevated Testing performed by: [address] [address] Blood 11/10/2024 4:20 AM CDT 11/10/2024 4:39 AM CDT Conor Ventura MD LAB BLOOD ORDERABL ES Final Result Performing Organization Address City/[facility] Co de Phone Number MARCELINO [address] [address] * POCT glucose (11/10/2024 4:00 AM CDT) [facility] Glucose, POC 140 70 - 199 mg/dL Comment:Testing performed by : [address] [address] Glucose comment 1 Use This Result MARCELINO Comment:Testing performed by : [address] [address] Blood 11/10/2024 4:00 AM CDT 11/10/2024 4:00 AM CDT Conor Ventura MD LAB POCT ORDERABLE S - DEVICE Final Result Performing Organization Address [facility] de Phone Number [address] [address] * (ABNORMAL) POCT glucose (11/09/2024 11:57 PM CDT) [facility] Glucose, POC 228(H) 70 - 199 mg/dL Comment:Testing performed by : [address] [address] Glucose comment 1 Use This Result MARCELINO Comment:Testing performed by : [address] [address] Blood 11/09/2024 11:5 7 PM CDT 11/09/2024 11:57 PM CDT Conor Ventura MD LAB POCT ORDERABLE S - DEVICE Final Result Performing Organization Address City/[facility] Co de Phone Number MARCELINO [address] [address] * POCT glucose (11/09/2024 8:40 PM CDT) Glucose, POC 146 70 - 199 mg/dL Comment:Testing performed by : [facility], [address] [place] [address]., [address] Glucose comment 1 Use This Result MARCELINO Comment:Testing performed by : [facility], [address] [place] [address]., [address] Blood 11/09/2024 8:40 PM CDT 11/09/2024 8:40 PM CDT Conor Ventura MD LAB POCT ORDERABLE S - DEVICE Final Result Performing Organization Address City/[facility]/ZIP Co de Phone Number [place] [phone] [facility] [place] [address] * POCT glucose (11/09/2024 4:53 PM CDT) Glucose, POC 133 70 - 199 mg/dL Comment:Testing performed by : [address] [address] Blood 11/09/2024 4:53 PM CDT 11/09/2024 4:53 PM CDT Conor Ventura MD LAB POCT ORDERABLE S - DEVICE Final Result Performing Organization Address [facility] Co de Phone Number [address] [address] * POCT glucose (11/09/2024 12:08 PM CDT) Glucose, POC 187 70 - 199 mg/dL Comment:Testing performed by : [address] [address] Blood 11/09/2024 12:0 8 PM CDT 11/09/2024 12:08 PM CDT us Conor Ventura MD LAB POCT ORDERABLE S - DEVICE Final Result Performing Organization Address City/[facility]/ZIP Co de Phone Number [place] [phone] [facility] Department [place] [address] * POCT glucose (11/09/2024 8:52 AM CDT) Glucose, POC 152 70 - 199 mg/dL Comment:Testing performed by : [facility], [address] [place] [address]., [address] Blood 11/09/2024 8:52 AM CDT 11/09/2024 8:52 AM CDT us Conor Ventura MD LAB POCT ORDERABLE S - DEVICE Final Result MARCELINO [address] [facility] Department [place] [address] * eGFR (11/09/2024 5:08 AM CDT) Pathologist [facility] eGFR 89 >=60 mL/min/1. 73 m2 Comment: Interpretive Data Reference Interval Normal >/= 90 mL/min/1.73m2 Mildly decreased* 60 - 89 mL/min/1.73m2 Mildly to moderately decreased 45 - 59 mL/min/1.73m2 Moderately to severely decreased 30 - 44 mL/min/1.73m2 Severely decreased 15 - 29 mL/min/1.73m2 Kidney Failure < 15 mL/min/1.73m2 *Relative to young adult level Estimated glomerular filtration rate is determined by the 2020 CKD-EPI equation recommended by the National Kidney Foundation (A Unifying Approach to GFR Estimation: Recommendations of the NKF-ASK Task Force on Reassessing the Inclusion of Race in Diagnosing Kidney Disease, JASN 2020). The CKD-EPI equation should not be used for patients with unstable renal function and has not been validated in children and those over 70. Current interpretive data was last reviewed 2021. Testing performed by: [facility], [address] [place] [address]., [address] Blood 11/09/2024 5:08 AM CDT 11/09/2024 5:33 AM CDT us Conor Ventura MD LAB BLOOD ORDERABL ES Final Result MARCELINO [address] [facility] Department of Laboratories [place], [place] [id number] * Differential, auto (11/09/2024 5:08 AM CDT) Neutrophil abs 4.5 1.5 - 6.5 K/cumm Comment:Testing performed by : [address] [address] Imm gran abs 0.0 0.0 - 0.1 K/cumm MARCELINO Comment:Testing performed by : [address] [address] Lymphocyte abs 1.1 0.8 - 3.3 K/cumm MARCELINO Comment:Testing performed by : [address] [address] Monocyte abs 0.5 0.2 - 0.8 K/cumm MARCELINO Comment:Testing performed by : [address] [address] Eosinophil abs 0.2 0.0 - 0.5 K/cumm MARCELINO Comment:Testing performed by : [address] [address] Basophil abs 0.0 0.0 - 0.1 K/cumm MARCELINO Comment:Testing performed by : [address] [address] Neutrophil pct 71.4 % [facility] Comment: Interpretive Data Percent cell count reference ranges are not reported, since discordance with absolute values may lead to misinterpretation of CBC data. Current Interpretive Data was last revised on 2017. Testing performed by: [address] [address] Imm gran pct 0.6 % MARCELINO Comment: Interpretive Data Percent cell count reference ranges are not reported, since discordance with absolute values may lead to misinterpretation of CBC data. Current Interpretive Data was last revised on 2017. Testing performed by: [address] [address] Lymphocyte pct 16.5 % MARCELINO Comment: Interpretive Data Percent cell count reference ranges are not reported, since discordance with absolute values may lead to misinterpretation of CBC data. Current Interpretive Data was last revised on 2017. Testing performed by: [address] [address] Monocyte pct 8.5 % MARCELINO Comment: Interpretive Data Percent cell count reference ranges are not reported, since discordance with absolute values may lead to misinterpretation of CBC data. Current Interpretive Data was last revised on 2017. Testing performed by: [address] [address] Eosinophil pct 2.7 % MARCELINO Comment: Interpretive Data Percent cell count reference ranges are not reported, since discordance with absolute values may lead to misinterpretation of CBC data. Current Interpretive Data was last revised on 2017. Testing performed by: [address] [address] Basophil pct 0.3 % MARCELINO Comment: Interpretive Data Percent cell count reference ranges are not reported, since discordance with absolute values may lead to misinterpretation of CBC data. Current Interpretive Data was last revised on 2017. Testing performed by: [address] [address] Blood 11/09/2024 5:08 AM CDT 11/09/2024 5:33 AM CDT us Ananya MEANS LAB BLOOD ORDERABLES Final Re sult [facility] [address] [facility] Department [place] [address] * (ABNORMAL) CBC with auto differential (11/09/2024 5:08 AM CDT) WBC 6.4 3.8 - 9.9 K/cumm Comment:Testing performed by : [address] [address] Hgb 11.9 11.9 - 15.5 g/dL MARCELINO Comment:Testing performed by : [address] [address] Hct 38.4 35.6 - 45.5 % MARCELINO Comment:Testing performed by : [address] [address] Plt 342 150 - 400 K/cumm MARCELINO Comment:Testing performed by : [address] [address] MPV 10.5 9.1 - 12.3 fL MARCELINO Comment:Testing performed by : [address], [address] RBC 4.52 3.90 - 5.20 M/cumm MARCELINO Comment:Testing performed by : [address], [address] MCV 85.0 81.3 - 96.4 fL MARCELINO Comment:Testing performed by : [address] [address] MCH 26.3(L) 27.1 - 33.3 pg MARCELINO Comment:Testing performed by : [address] [address] MCHC 31.0(L) 32.3 - 35.7 g/dL MARCELINO Comment:Testing performed by : [address], [address] RDW CV 17.1(H) 11.1 - 14.9 % MARCELINO Comment:Testing performed by : [address], [address] RDW SD 53.1(H) 35.7 - 48.1 fL MARCELINO Comment:Testing performed by : [address] [address] NRBC abs 0.00 0.00 - 0.01 K/cumm MARCELINO Comment:Testing performed by : [address], [address] Blood 11/09/2024 5:08 AM CDT 11/09/2024 5:33 AM CDT Ananya MEANS LAB BLOOD ORDERABLES Final Re sult Performing Organization Address [facility] de Phone Number [address] [place] [address] * (ABNORMAL) CRP (acute phase) (11/09/2024 5:08 AM CDT) Pathologist [facility] CRP 102.6(H) <=10.0 mg/L Comment:Testing performed by : [address] [address] Blood 11/09/2024 5:08 AM CDT 11/09/2024 5:33 AM CDT Conor eVntura MD LAB BLOOD ORDERABL ES Final Result Performing Organization Address [facility] de Phone Number [address] [place] [address] * (ABNORMAL) Phosphorus (11/09/2024 5:08 AM CDT) [facility] Phosphorus, pl 2.1(L) 2.3 - 4.5 mg/dL Comment:Testing performed by : [address] [address] Blood 11/09/2024 5:08 AM CDT 11/09/2024 5:33 AM CDT Conor Ventura MD LAB BLOOD ORDERABL ES Final Result Performing Organization Address [facility] Co de Phone Number [address] [address] * (ABNORMAL) Magnesium (11/09/2024 5:08 AM CDT) [facility] Magnesium 1.2(L) 1.4 - 2.5 mg/dL Comment:Testing performed by : [address] [address] Blood 11/09/2024 5:08 AM CDT 11/09/2024 5:33 AM CDT Conor Ventura MD LAB BLOOD ORDERABL ES Final Result MARCELINO [address] [facility] Department [place] [address] * (ABNORMAL) Comprehensive metabolic panel (11/09/2024 5:08 AM CDT) Sodium 140 135 - 145 mmol/L Comment:Testing performed by : [address] [address] Potassium, pl 3.0(L) 3.3 - 4.9 mmol/L MARCELINO Comment:Testing performed by : [address] [address] Chloride 103 97 - 110 mmol/L MARCELINO Comment:Testing performed by : [address] [address] CO2 27 22 - 32 mmol/L MARCELINO Comment:Testing performed by : [address] [address] Anion gap 10 2 - 15 mmol/L MARCELINO Comment:Testing performed by : [address] [address] BUN 7 6 - 25 mg/dL MARCELINO Comment:Testing performed by : [address] [address] Creatinine 0.60 0.60 - 1.10 mg/dL MARCELINO Comment:Testing performed by : [address] [address] Glucose 197 70 - 199 mg/dL MARCELINO Comment: Interpretive Data Fasting glucose >/= 126 mg/dl is diagnostic for diabetes. Fasting is defined as no caloric intake for at least 8 hours. Fasting glucose between 100 mg/dl to 125 mg/dl is diagnostic of prediabetes. In a patient with classic symptoms of hyperglycemia or hyperglycemic crisis, a random glucose >/= 200 mg/dl is diagnostic for diabetes. In the absence of unequivocal hyperglycemia, results should be confirmed by repeat testing. The classification and Diagnosis of Diabetes Diabetes Care 2022; 46: S19-S40. Current interpretive data was last revised 2022. Testing performed by: [address] [address] Calcium 9.9 8.5 - 10.3 mg/dL MARCELINO Comment:Testing performed by : [address] [address] Bilirubin, total 0.2 0.1 - 1.2 mg/dL MARCELINO Comment:Testing performed by : [address] [address] Protein, pl 6.0(L) 6.5 - 8.5 g/dL MARCELINO Comment:Testing performed by : [address] [address] Albumin 2.7(L) 3.5 - 5.0 g/dL MARCELINO Comment:Testing performed by : [address] [address] Alk phos 91 40 - 130 Units/L MARCELINO Comment:Testing performed by : [address] [address] ALT 7 7 - 45 Units/L MARCELINO Comment:Testing performed by : [address] [address] AST 14 10 - 45 Units/L MARCELINO Comment:Testing performed by : [address] [address] Blood 11/09/2024 5:08 AM CDT 11/09/2024 5:33 AM CDT us Conor Ventura MD LAB BLOOD ORDERABL ES Final Result [facility] [address] [facility] Department [place] [address] * POCT glucose (11/09/2024 5:01 AM CDT) [facility] Glucose, POC 191 70 - 199 mg/dL Comment:Testing performed by : [address] [address] Glucose comment 1 Use This Result MARCELINO Comment:Testing performed by : [address] [address] Blood 11/09/2024 5:01 AM CDT 11/09/2024 5:01 AM CDT Result [facility] Conor Ventura MD LAB POCT ORDERABLE S - DEVICE Final Result Performing Organization Address [facility] Co de Phone Number [address] [address] * POCT glucose (11/09/2024 12:07 AM CDT) Glucose, POC 197 70 - 199 mg/dL Comment:Testing performed by : [address] [address] Glucose comment 1 Use This Result [facility] Comment:Testing performed by : [address] [address] Blood 11/09/2024 12:0 7 AM CDT 11/09/2024 12:07 AM CDT Result [facility] Conor Ventura MD LAB POCT ORDERABLE S - DEVICE Final Result Performing Organization Address [facility] de Phone Number [address] [address] * POCT glucose (11/08/2024 8:15 PM CDT) Glucose, POC 181 70 - 199 mg/dL Comment:Testing performed by : [address] [address] Glucose comment 1 Use This Result MARCELINO Comment:Testing performed by : [address] [address] Blood 11/08/2024 8:15 PM CDT 11/08/2024 8:15 PM CDT Conor Ventura MD LAB POCT ORDERABLE S - DEVICE Final Result Performing Organization Address [facility] Co de Phone Number [address] [address] * POCT glucose (11/08/2024 3:43 PM CDT) Glucose, POC 157 70 - 199 mg/dL Comment:Testing performed by : [address] [address] Blood 11/08/2024 3:43 PM CDT 11/08/2024 3:43 PM CDT Conor Ventura MD LAB POCT ORDERABLE S - DEVICE Final Result Performing Organization Address [facility] Co de Phone Number [address] [employer] [place] [address] * POCT glucose (11/08/2024 11:42 AM CDT) Glucose, POC 167 70 - 199 mg/dL Comment:Testing performed by : [address] [address] Blood 11/08/2024 11:4 2 AM CDT 11/08/2024 11:42 AM CDT Conor Ventura MD LAB POCT ORDERABLE S - DEVICE Final Result Performing Organization Address City/[facility] Co de Phone Number [address] [address] * POCT glucose (11/08/2024 7:59 AM CDT) Glucose, POC 173 70 - 199 mg/dL Comment:Testing performed by : [address] [address] Glucose comment 1 Use This Result MARCELINO Comment:Testing performed by : [address] [address] Blood 11/08/2024 7:59 AM CDT 11/08/2024 7:59 AM CDT Conor Ventura MD LAB POCT ORDERABLE S - DEVICE Final Result Performing Organization Address [facility] Co de Phone Number [address] [place] [address] * (ABNORMAL) POCT glucose (11/08/2024 7:58 AM CDT) Glucose, POC 204(H) 70 - 199 mg/dL Comment:Testing performed by : [address] [address] Glucose comment 1 Use This Result MARCELINO Comment:Testing performed by : [address] [address] Blood 11/08/2024 7:58 AM CDT 11/08/2024 7:58 AM CDT Result [facility] Conor Ventura MD LAB POCT ORDERABLE S - DEVICE Final Result Performing Organization Address [facility] de Phone Number [address] [address] * (ABNORMAL) POCT glucose (11/08/2024 5:46 AM CDT) Glucose, POC 210(H) 70 - 199 mg/dL Comment:Testing performed by : [address] [address] Glucose comment 1 Use This Result MARCELINO Comment:Testing performed by : [address] [address] Blood 11/08/2024 5:46 AM CDT 11/08/2024 5:46 AM CDT Conor Ventura MD LAB POCT ORDERABLE S - DEVICE Final Result Performing Organization Address [facility]/State/ZIP Co de Phone Number [facility] [address] [facility] Department [place] [address] * eGFR (11/08/2024 1:05 AM CDT) eGFR 90 >=60 mL/min/1. 73 m2 Comment: Interpretive Data Reference Interval Normal >/= 90 mL/min/1.73m2 Mildly decreased* 60 - 89 mL/min/1.73m2 Mildly to moderately decreased 45 - 59 mL/min/1.73m2 Moderately to severely decreased 30 - 44 mL/min/1.73m2 Severely decreased 15 - 29 mL/min/1.73m2 Kidney Failure < 15 mL/min/1.73m2 *Relative to young adult level Estimated glomerular filtration rate is determined by the 2020 CKD-EPI equation recommended by the National Kidney Foundation (A Unifying Approach to GFR Estimation: Recommendations of the NKF-ASK Task Force on Reassessing the Inclusion of Race in Diagnosing Kidney Disease, JASN 2020). The CKD-EPI equation should not be used for patients with unstable renal function and has not been validated in children and those over 70. Current interpretive data was last reviewed 2021. Testing performed by: [facility], [address] [place] [address]., [address] Blood 11/08/2024 1:05 AM CDT 11/08/2024 1:24 AM CDT Conor Ventura MD LAB BLOOD ORDERABL ES Final Result [facility] [address] [facility] Department [place] [employer] [place] [address] * Blood culture Blood (11/08/2024 1:05 AM CDT) Report Final Report: No growth Comment:Testing performed by : [facility], [address] [facility] [place]., [address] Blood 11/08/2024 1:05 AM CDT 11/08/2024 3:32 AM CDT Narrative MARCELINO - 11/12/2024 7:00 AM CDT From a different site than #1. Collection->Peripheral 1. Blood cultures are incubated for 4 days on a continuously monitored blood culture system. The first report of a negative culture is issued within 24 hours of receipt of the specimen in the laboratory. 2. Positive culture results are reported as soon as they are detected. 3. The most important factor for detection of microbes in the setting of bloodstream infection is the volume of blood submitted for culture. Failure to collect an optimal blood volume can result in false negative blood cultures. 4. For pediatric patients, the recommended blood volume to collect follows a weight based strategy. See the electronic test catalog for collection instructions. 5. For positive blood cultures, a rapid molecular test may be performed for organism identification using the rehana ePlex blood culture identification panel for gram positive (BCID-GP) and gram negative (BCID-GN) organisms. This nucleic acid amplification test detects microbial DNA in positive blood culture broth. This assay has been cleared by the [place] Food and Drug Administration and its performance characteristics have been verified by the [facility] Microbiology Laboratory. For questions about this culture, contact the Microbiology Laboratory at [phone]. Interpretive data was last revised on 24. Conor Ventura MD LAB MICROBIOLOGY - GENERAL ORDERABLES Final Result Performing Organization Address City/[facility]/ZIP Co de Phone Number MARCELINO [address] [facility] [employer] [place] [address] * (ABNORMAL) CRP (acute phase) (11/08/2024 1:05 AM CDT) CRP 101.0(H) <=10.0 mg/L Comment:Testing performed by : [facility], [address] [place] [address]., [address] Blood 11/08/2024 1:05 AM CDT 11/08/2024 1:24 AM CDT us Conor Ventura MD LAB BLOOD ORDERABL ES Final Result Performing Organization Address City/[facility] Co de Phone Number MARCELINO [address] [place] [address] * Phosphorus (11/08/2024 1:05 AM CDT) [facility] Phosphorus, pl 3.5 2.3 - 4.5 mg/dL Comment:Testing performed by : [address] [address] Blood 11/08/2024 1:05 AM CDT 11/08/2024 1:24 AM CDT Conor Ventura MD LAB BLOOD ORDERABL ES Final Result Performing Organization Address City/[facility]/ZIP Co de Phone Number [address] [address] * Magnesium (11/08/2024 1:05 AM CDT) [facility] Magnesium 1.4 1.4 - 2.5 mg/dL Comment:Testing performed by : [address] [address] Blood 11/08/2024 1:05 AM CDT 11/08/2024 1:24 AM CDT Conor Ventura MD LAB BLOOD ORDERABL ES Final Result Performing Organization Address City/[facility] Co de Phone Number [address] [address] * (ABNORMAL) Comprehensive metabolic panel (11/08/2024 1:05 AM CDT) [facility] Sodium 143 135 - 145 mmol/L Comment:Testing performed by : [address] [address] Potassium, pl 3.1(L) 3.3 - 4.9 mmol/L MARCELINO HAYWOOD Comment:Testing performed by : [address] [address] Chloride 107 97 - 110 mmol/L MARCELINO HAYWOOD Comment:Testing performed by : [address] [address] CO2 26 22 - 32 mmol/L MARCELINO Comment:Testing performed by : [address] [address] Anion gap 10 2 - 15 mmol/L MARCELINO Comment:Testing performed by : [address] [address] BUN 8 6 - 25 mg/dL MARCELINO Comment:Testing performed by : [address] [address] Creatinine 0.56(L) 0.60 - 1.10 mg/dL [facility] Comment:Testing performed by : [address] [address] Glucose 209(H) 70 - 199 mg/dL MARCELINO Comment: Interpretive Data Fasting glucose >/= 126 mg/dl is diagnostic for diabetes. Fasting is defined as no caloric intake for at least 8 hours. Fasting glucose between 100 mg/dl to 125 mg/dl is diagnostic of prediabetes. In a patient with classic symptoms of hyperglycemia or hyperglycemic crisis, a random glucose >/= 200 mg/dl is diagnostic for diabetes. In the absence of unequivocal hyperglycemia, results should be confirmed by repeat testing. The classification and Diagnosis of Diabetes Diabetes Care 202; 46: S19-S40. Current interpretive data was last revised 2022. Testing performed by: [address] [address] Calcium 9.5 8.5 - 10.3 mg/dL [facility] Comment:Testing performed by : [address] [address] Bilirubin, total 0.2 0.1 - 1.2 mg/dL [facility] Comment:Testing performed by : [address] [address] Protein, pl 6.0(L) 6.5 - 8.5 g/dL MARCELINO Comment:Testing performed by : [address] [address] Albumin 2.9(L) 3.5 - 5.0 g/dL MARCELINO Comment:Testing performed by : [address] [address] Alk phos 90 40 - 130 Units/L MARCELINO HAYWOOD Comment:Testing performed by : [address] [address] ALT 11 7 - 45 Units/L MARCELINO HAYWOOD Comment:Testing performed by : [address] [address] AST 13 10 - 45 Units/L MARCELINO Comment:Testing performed by : [address] [address] Blood 11/08/2024 1:05 AM CDT 11/08/2024 1:24 AM CDT Conor Ventura MD LAB BLOOD ORDERABL ES Final Result Performing Organization Address City/[facility]/ZIP Co de Phone Number MARCELINO [address] [place] [address] * POCT glucose (11/08/2024 12:31 AM CDT) Glucose, POC 195 70 - 199 mg/dL Comment:Testing performed by : [address] [address] Glucose comment 1 Use This Result MARCELINO Comment:Testing performed by : [address], [address] Blood 11/08/2024 12:3 1 AM CDT 11/08/2024 12:31 AM CDT Conor Ventura MD LAB POCT ORDERABLE S - DEVICE Final Result Performing Organization Address City/[facility]/ZIP Co de Phone Number [address] [place] [address] * POCT glucose (11/07/2024 9:10 PM CDT) Glucose, POC 140 70 - 199 mg/dL Comment:Testing performed by : [address] [address] Glucose comment 1 Use This Result MARCELINO Comment:Testing performed by : [address] [address] Blood 11/07/2024 9:10 PM CDT 11/07/2024 9:10 PM CDT Conor Ventura MD LAB POCT ORDERABLE S - DEVICE Final Result Performing Organization Address City/[facility]/ZIP Co de Phone Number [address] [employer] [place] [address] * POCT glucose (11/07/2024 4:39 PM CDT) Glucose, POC 183 70 - 199 mg/dL Comment:Testing performed by : [address] [address] Blood 11/07/2024 4:39 PM CDT 11/07/2024 4:39 PM CDT Conor Ventura MD LAB POCT ORDERABLE S - DEVICE Final Result Performing Organization Address [facility] Co de Phone Number [address] [address] * eGFR (11/07/2024 1:49 PM CDT) eGFR >90 >=60 mL/min/1. 73 m2 Comment: Interpretive Data Reference Interval Normal >/= 90 mL/min/1.73m2 Mildly decreased* 60 - 89 mL/min/1.73m2 Mildly to moderately decreased 45 - 59 mL/min/1.73m2 Moderately to severely decreased 30 - 44 mL/min/1.73m2 Severely decreased 15 - 29 mL/min/1.73m2 Kidney Failure < 15 mL/min/1.73m2 *Relative to young adult level Estimated glomerular filtration rate is determined by the 2020 CKD-EPI equation recommended by the National Kidney Foundation (A Unifying Approach to GFR Estimation: Recommendations of the NKF-ASK Task Force on Reassessing the Inclusion of Race in Diagnosing Kidney Disease, JASN 2020). The CKD-EPI equation should not be used for patients with unstable renal function and has not been validated in children and those over 70. Current interpretive data was last reviewed 2021. Testing performed by: [address] [address] Blood 11/07/2024 1:49 PM CDT 11/07/2024 2:07 PM CDT Satinder Dougherty MD LAB BLOOD ORDERABLES Fi nal Result MARCELINO [address] [facility] Department [place] [address] * (ABNORMAL) Differential, auto (11/07/2024 1:49 PM CDT) Neutrophil abs 9.8(H) 1.5 - 6.5 K/cumm Comment:Testing performed by : [address] [address] Imm gran abs 0.1 0.0 - 0.1 K/cumm MARCELINO Comment:Testing performed by : [address] [address] Lymphocyte abs 0.8 0.8 - 3.3 K/cumm MARCELINO Comment:Testing performed by : [address] [address] Monocyte abs 0.8 0.2 - 0.8 K/cumm MARCELINO Comment:Testing performed by : [address] [address] Eosinophil abs 0.1 0.0 - 0.5 K/cumm MARCELINO Comment:Testing performed by : [address] [address] Basophil abs 0.1 0.0 - 0.1 K/cumm MARCELINO Comment:Testing performed by : [address] [address] Neutrophil pct 84.7 % MARCELINO Comment: Interpretive Data Percent cell count reference ranges are not reported, since discordance with absolute values may lead to misinterpretation of CBC data. Current Interpretive Data was last revised on 2017. Testing performed by: [address] [address] Imm gran pct 0.5 % [facility] Comment: Interpretive Data Percent cell count reference ranges are not reported, since discordance with absolute values may lead to misinterpretation of CBC data. Current Interpretive Data was last revised on 2017. Testing performed by: [address] [address] Lymphocyte pct 6.5 % [facility] Comment: Interpretive Data Percent cell count reference ranges are not reported, since discordance with absolute values may lead to misinterpretation of CBC data. Current Interpretive Data was last revised on 2017. Testing performed by: [address] [address] Monocyte pct 7.2 % [facility] Comment: Interpretive Data Percent cell count reference ranges are not reported, since discordance with absolute values may lead to misinterpretation of CBC data. Current Interpretive Data was last revised on 2017. Testing performed by: [address] [address] Eosinophil pct 0.7 % [facility] Comment: Interpretive Data Percent cell count reference ranges are not reported, since discordance with absolute values may lead to misinterpretation of CBC data. Current Interpretive Data was last revised on 2017. Testing performed by: [address] [address] Basophil pct 0.4 % [facility] Comment: Interpretive Data Percent cell count reference ranges are not reported, since discordance with absolute values may lead to misinterpretation of CBC data. Current Interpretive Data was last revised on 2017. Testing performed by: [address] [address] Blood 11/07/2024 1:49 PM CDT 11/07/2024 2:07 PM CDT us Ananya MEANS LAB BLOOD ORDERABLES Final Re sult MARCELINO [address] [facility] Department of Laboratories [place], [place] [id number] * Thyroid Function [place] (11/07/2024 1:49 PM CDT) Pathologist [facility] TSH 3.28 0.30 - 4.20 mcIUnit/mL Comment:Testing performed by : [address] [address] Blood 11/07/2024 1:49 PM CDT 11/07/2024 2:07 PM CDT Conor Ventura MD LAB BLOOD ORDERABL ES Final Result [facility] [address] [facility] Department [place] [address] * (ABNORMAL) CBC with auto differential (11/07/2024 1:49 PM CDT) [facility] WBC 11.6(H) 3.8 - 9.9 K/cumm Comment:Testing performed by : [address] [address] Hgb 12.6 11.9 - 15.5 g/dL MARCELINO Comment:Testing performed by : [address] [address] Hct 39.9 35.6 - 45.5 % MARCELINO Comment:Testing performed by : [address] [address] Plt 407(H) 150 - 400 K/cumm MARCELINO Comment:Testing performed by : [address] [address] MPV 10.5 9.1 - 12.3 fL MARCELINO Comment:Testing performed by : [address] [address] RBC 4.73 3.90 - 5.20 M/cumm MARCELINO Comment:Testing performed by : [address] [address] MCV 84.4 81.3 - 96.4 fL MARCELINO Comment:Testing performed by : [address] [address] MCH 26.6(L) 27.1 - 33.3 pg MARCELINO Comment:Testing performed by : [address] [address] MCHC 31.6(L) 32.3 - 35.7 g/dL MARCELINO HAYWOOD Comment:Testing performed by : [address] [address] RDW CV 17.2(H) 11.1 - 14.9 % MARCELINO Comment:Testing performed by : [address], [address] RDW SD 53.5(H) 35.7 - 48.1 fL MARCELINO Comment:Testing performed by : [address] [address] NRBC abs 0.00 0.00 - 0.01 K/cumm MARCELINO Comment:Testing performed by : [address], [address] Blood 11/07/2024 1:49 PM CDT 11/07/2024 2:07 PM CDT us Ananya MEANS LAB BLOOD ORDERABLES Final Re sult [address] [place] [employer] [address] * (ABNORMAL) Erythrocyte sedimentation rate (11/07/2024 1:49 PM CDT) Erythrocyte sedimentation rate 85(H) 1 - 30 mm/hr Comment:Testing performed by : [address], [address] Blood 11/07/2024 1:49 PM CDT 11/07/2024 2:07 PM CDT us Conor Ventura MD LAB BLOOD ORDERABL ES Final Result [address] [place] [address] * (ABNORMAL) CRP (acute phase) (11/07/2024 1:49 PM CDT) CRP 108.0(H) <=10.0 mg/L Comment:Testing performed by : [address] [address] Blood 11/07/2024 1:49 PM CDT 11/07/2024 2:07 PM CDT Conor Ventura MD LAB BLOOD ORDERABL ES Final Result Performing Organization Address City/[facility]/ZIP Co de Phone Number OR[address] [place] [employer] [address] * Ammonia (11/07/2024 1:49 PM CDT) Pathologist [facility] Ammonia 13 <=50 mcmol/L Comment: Please note on 01/05/2024 the unit of measure changed from mcg/dL to mcmol/L. Current Interpretive Data was last revised on 2024 Testing performed by: [address] [address] Blood 11/07/2024 1:49 PM CDT 11/07/2024 2:05 PM CDT Conor Ventura MD LAB BLOOD ORDERABL ES Final Result Performing Organization Address City/[facility]/ZIP Co de Phone Number OR[address] [place] [employer] [address] * (ABNORMAL) Basic metabolic panel (11/07/2024 1:49 PM CDT) Pathologist [facility] Sodium 144 135 - 145 mmol/L Comment:Testing performed by : [address] [address] Potassium, pl 2.9(L) 3.3 - 4.9 mmol/L MARCELINO HAYWOOD Comment:Testing performed by : [address] [address] Chloride 109 97 - 110 mmol/L MARCELINO Comment:Testing performed by : [address] [address] CO2 23 22 - 32 mmol/L MARCELINO Comment:Testing performed by : [address] [address] Anion gap 12 2 - 15 mmol/L MARCELINO Comment:Testing performed by : [address] [address] BUN 10 6 - 25 mg/dL MARCELINO Comment:Testing performed by : [address] [address] Creatinine 0.55(L) 0.60 - 1.10 mg/dL MARCELINO Comment:Testing performed by : [address] [address] Glucose 170 70 - 199 mg/dL MARCELINO Comment: Interpretive Data Fasting glucose >/= 126 mg/dl is diagnostic for diabetes. Fasting is defined as no caloric intake for at least 8 hours. Fasting glucose between 100 mg/dl to 125 mg/dl is diagnostic of prediabetes. In a patient with classic symptoms of hyperglycemia or hyperglycemic crisis, a random glucose >/= 200 mg/dl is diagnostic for diabetes. In the absence of unequivocal hyperglycemia, results should be confirmed by repeat testing. The classification and Diagnosis of Diabetes Diabetes Care 202; 46: S19-S40. Current interpretive data was last revised 2022. Testing performed by: [address] [address] Calcium 10.0 8.5 - 10.3 mg/dL MARCELINO Comment:Testing performed by : [address] [address] Blood 11/07/2024 1:49 PM CDT 11/07/2024 2:07 PM CDT us Satinder Dougherty MD LAB BLOOD ORDERABLES Fi nal Result MARCELINO [address] [facility] Department [place] [address] * POCT glucose (11/07/2024 12:43 PM CDT) Glucose, POC 170 70 - 199 mg/dL Comment:Testing performed by : [facility], [address] [place] [address], [place]., [address] Blood 11/07/2024 12:4 3 PM CDT 11/07/2024 12:43 PM CDT Conor Ventura MD LAB POCT ORDERABLE S - DEVICE Final Result MARCELINO [address] [facility] Department [place] [address] * CT Chest Abdomen Pelvis W Contrast (11/07/2024 12:39 PM CDT) Anatomical Region Laterality Modality Body N/A Computed Tomogra phy 11/07/2024 1:13 PM CDT Narrative 11/07/2024 1:29 PM CDT EXAM DESCRIPTION: CT CHEST ABDOMEN PELVIS W CONTRAST REASON FOR STUDY: Sepsis UTI, possible sepsis Pt unable to hold breath TECHNIQUE: CT scan of the chest, abdomen, and pelvis performed with intravenous and without oral contrast using helical scanning technique with dynamic intravenous contrast injection. Reconstructed coronal and sagittal MPR images reviewed. All images stored on PACS. Automated exposure control was used as a dose optimization technique for this examination. CONTRAST TYPE/DOSE: 100mL of IOVERSOL 350 MG IODINE/ML INTRAVENOUS SYRINGE injected via intravenous COMPARISON: CT chest abdomen pelvis 11/02/2024 FINDINGS: CHEST LUNGS: Respiratory motion degrades evaluation of the pulmonary parenchyma. There are scattered areas of subsegmental atelectasis. No suspicious pulmonary nodules, allowing for respiratory motion. Central airways are patent. PLEURA: No effusion. No pneumothorax. MEDIASTINUM/FAUSTINO: The esophagus is mildly patulous. There is a small hiatal hernia. There is no mediastinal lymphadenopathy. HEART: The heart size is mildly enlarged. No pericardial effusion. Multivessel coronary artery calcifications are present. VASCULATURE CHEST: No thoracic aortic aneurysm or dissection. AXILLA: No adenopathy. CHEST WALL: No masses. No subcutaneous air. HARDWARE/LINES/TUBES: None. MUSCULOSKELETAL CHEST: There are no suspicious osseous lesions. ABDOMEN/PELVIS Evaluation of the abdomen is degraded due to motion artifact. LIVER: There is focal fatty infiltration of the liver near the falciform ligament. GALLBLADDER: Surgically absent BILE DUCTS: No intrahepatic or extrahepatic ductal dilatation. SPLEEN: Normal size. No focal lesions. PANCREAS: No identified cystic or solid masses. No significant calcifications. No adjacent inflammation or peripancreatic fluid collections. Pancreatic duct not dilated. ADRENALS: Normal. KIDNEYS/URINARY TRACT: There is mild right-sided pelvicaliectasis. There is a small cyst in the left kidney. No urinary tract calculi appreciated. A Connolly catheter decompresses the urinary bladder. GI: There is a small hiatal hernia. Stomach is decompressed. No dilated or thick-walled loops of bowel appreciated. The appendix is not definitively identified. No obvious inflammatory changes regional to the cecal tip. There is colonic diverticulosis without diverticulitis. There is a large amount of stool in the rectum concerning for fecal impaction. PERITONEUM: No ascites or free air. RETROPERITONEUM: No mass or adenopathy. REPRODUCTIVE: Uterus is not visualized. VASCULATURE ABDOMEN: Small to moderate amount of calcified atherosclerotic plaque in the aorta and iliac vessels without aneurysm. 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 MUSCULOSKELETAL ABDOMEN PELVIS: No suspicious osseous lesions. There is posterior spinal fusion hardware at L4 on L5. There is an unchanged superior endplate compression fracture of the L1 vertebral body. There is similar-appearing grade 1 retrolisthesis of L2 on L3. OTHER: No significant abnormality. IMPRESSION: Motion degraded evaluation. Large amount of stool in the rectum concerning for fecal impaction. Mild right-sided pelvicaliectasis. Small hiatal hernia. Additional findings as above. THIS IS AN ELECTRONICALLY VERIFIED FINAL REPORT 11/07/2024 1:29 PM - Electronically signed by Shahid Schaeffer M.D. AM: AM Report ID: [id number] Reading Location: [id number] Procedure Note Shahid Schaeffer MD - 11/07/2024 EXAM DESCRIPTION: CT CHEST ABDOMEN PELVIS W CONTRAST REASON FOR STUDY: Sepsis UTI, possible sepsis Pt unable to hold breath TECHNIQUE: CT scan of the chest, abdomen, and pelvis performed with intravenous and without oral contrast using helical scanning techniquewith dynamic intravenous contrast injection. Reconstructed coronal and sagittalMPR images reviewed. All images stored on PACS. Automated exposure control was used as a dose optimization technique for this examination. CONTRAST TYPE/DOSE: 100mL of IOVERSOL 350 MG IODINE/ML INTRAVENOUS SYRINGE injected via intravenous COMPARISON: CT chest abdomen pelvis 11/02/2024 FINDINGS: CHEST LUNGS: Respiratory motion degrades evaluation of the pulmonaryparenchyma. There are scattered areas of subsegmental atelectasis. No suspicious pulmonary nodules, allowing for respiratory motion. Central airways are patent. PLEURA: No effusion. No pneumothorax. MEDIASTINUM/FAUSTINO: The esophagus is mildly patulous. There is a smallhiatal hernia. There is no mediastinal lymphadenopathy. HEART: The heart size is mildly enlarged. No pericardial effusion. Multivessel coronary artery calcifications are present. VASCULATURE CHEST: No thoracic aortic aneurysm or dissection. AXILLA: No adenopathy. CHEST WALL: No masses. No subcutaneous air. HARDWARE/LINES/TUBES: None. MUSCULOSKELETAL CHEST: There are no suspicious osseous lesions. ABDOMEN/PELVIS Evaluation of the abdomen is degraded due to motion artifact. LIVER: There is focal fatty infiltration of the liver near the falciform ligament. GALLBLADDER: Surgically absent BILE DUCTS: No intrahepatic or extrahepatic ductal dilatation. SPLEEN: Normal size. No focal lesions. PANCREAS: No identified cystic or solid masses. No significant calcifications. No adjacent inflammation or peripancreatic fluidcollections. Pancreatic duct not dilated. ADRENALS: Normal. KIDNEYS/URINARY TRACT: There is mild right-sided pelvicaliectasis.There is a small cyst in the left kidney. No urinary tract calculi appreciated.A Connolly catheter decompresses the urinary bladder. GI: There is a small hiatal hernia. Stomach is decompressed. Nodilated or thick-walled loops of bowel appreciated. The appendix is not definitively identified. No obvious inflammatory changes regional to the cecal tip.There is colonic diverticulosis without diverticulitis. There is a large amountof stool in the rectum concerning for fecal impaction. PERITONEUM: No ascites or free air. RETROPERITONEUM: No mass or adenopathy. REPRODUCTIVE: Uterus is not visualized. VASCULATURE ABDOMEN: Small to moderate amount of calcifiedatherosclerotic plaque in the aorta and iliac vessels without aneurysm. There is at least ckwe-vd-jcrjmerj stenosis of the superior mesenteric artery origin due to calcified plaque. MUSCULOSKELETAL ABDOMEN PELVIS: No suspicious osseous lesions. There is posterior spinal fusion hardware at L4 on L5. There is an unchangedsuperior endplate compression fracture of the L1 vertebral body. There is similar-appearing grade 1 retrolisthesis of L2 on L3. OTHER: No significant abnormality. IMPRESSION: Motion degraded evaluation. Large amount of stool in the rectum concerning for fecal impaction. Mild right-sided pelvicaliectasis. Small hiatal hernia. Additional findings as above. THIS IS AN ELECTRONICALLY VERIFIED FINAL REPORT 11/07/2024 1:29 PM - Electronically signed by Shahid Schaeffer M.D. AM: AM Report ID: [id number] Reading Location: [id number] Conor Ventura MD IMG CT PROCEDURES Final Result * Lactate (11/07/2024 12:23 PM CDT) Pathologist [facility] [place] Lactate 1.1 0.7 - 2.0 mmol/L Comment:Testing performed by : [facility], [address] [place] [address]., [id number] Blood 11/07/2024 12:2 3 PM CDT 11/07/2024 12:28 PM CDT Conor Ventura MD LAB BLOOD ORDERABL ES Final Result [facility] [address] [facility] Department [place] [address] * eGFR (11/07/2024 12:23 PM CDT) Pathologist [facility] [place] eGFR >90 >=60 mL/min/1. 73 m2 Comment: Interpretive Data Reference Interval Normal >/= 90 mL/min/1.73m2 Mildly decreased* 60 - 89 mL/min/1.73m2 Mildly to moderately decreased 45 - 59 mL/min/1.73m2 Moderately to severely decreased 30 - 44 mL/min/1.73m2 Severely decreased 15 - 29 mL/min/1.73m2 Kidney Failure < 15 mL/min/1.73m2 *Relative to young adult level Estimated glomerular filtration rate is determined by the 2020 CKD-EPI equation recommended by the National Kidney Foundation (A Unifying Approach to GFR Estimation: Recommendations of the NKF-ASK Task Force on Reassessing the Inclusion of Race in Diagnosing Kidney Disease, JASN 2020). The CKD-EPI equation should not be used for patients with unstable renal function and has not been validated in children and those over 70. Current interpretive data was last reviewed 2021. Testing performed by: [address] [address] Blood 11/07/2024 12:2 3 PM CDT 11/07/2024 12:28 PM CDT Conor Ventura MD LAB BLOOD ORDERABL ES Final Result [facility] [address] [facility] Department [place] [address] * (ABNORMAL) Differential, auto (11/07/2024 12:23 PM CDT) Neutrophil abs 10.0(H) 1.5 - 6.5 K/cumm Comment:Testing performed by : [address] [address] Imm gran abs 0.1 0.0 - 0.1 K/cumm MARCELINO Comment:Testing performed by : [address] [address] Lymphocyte abs 0.9 0.8 - 3.3 K/cumm MARCELINO Comment:Testing performed by : [address] [address] Monocyte abs 0.9(H) 0.2 - 0.8 K/cumm MARCELINO Comment:Testing performed by : [address] [address] Eosinophil abs 0.1 0.0 - 0.5 K/cumm MARCELINO Comment:Testing performed by : [address] [address] Basophil abs 0.1 0.0 - 0.1 K/cumm MARCELINO Comment:Testing performed by : [address] [address] Neutrophil pct 82.9 % [facility] Comment: Interpretive Data Percent cell count reference ranges are not reported, since discordance with absolute values may lead to misinterpretation of CBC data. Current Interpretive Data was last revised on 2017. Testing performed by: [address] [address] Imm gran pct 0.6 % [facility] Comment: Interpretive Data Percent cell count reference ranges are not reported, since discordance with absolute values may lead to misinterpretation of CBC data. Current Interpretive Data was last revised on 2017. Testing performed by: [address] [address] Lymphocyte pct 7.6 % [facility] Comment: Interpretive Data Percent cell count reference ranges are not reported, since discordance with absolute values may lead to misinterpretation of CBC data. Current Interpretive Data was last revised on 2017. Testing performed by: [address] [address] Monocyte pct 7.8 % [facility] Comment: Interpretive Data Percent cell count reference ranges are not reported, since discordance with absolute values may lead to misinterpretation of CBC data. Current Interpretive Data was last revised on 2017. Testing performed by: [address] [address] Eosinophil pct 0.6 % [facility] Comment: Interpretive Data Percent cell count reference ranges are not reported, since discordance with absolute values may lead to misinterpretation of CBC data. Current Interpretive Data was last revised on 2017. Testing performed by: [address] [address] Basophil pct 0.5 % [facility] Comment: Interpretive Data Percent cell count reference ranges are not reported, since discordance with absolute values may lead to misinterpretation of CBC data. Current Interpretive Data was last revised on 2017. Testing performed by: [address] [address] Blood 11/07/2024 12:2 3 PM CDT 11/07/2024 12:28 PM CDT Conor Ventura MD LAB BLOOD ORDERABL ES Final Result [facility] [address] [facility] Department [place] [address] * (ABNORMAL) CBC with auto differential (11/07/2024 12:23 PM CDT) WBC 12.1(H) 3.8 - 9.9 K/cumm Comment:Testing performed by : [address] [address] Hgb 12.6 11.9 - 15.5 g/dL MARCELINO Comment:Testing performed by : [address] [address] Hct 40.7 35.6 - 45.5 % [facility]INO Comment:Testing performed by : [address] [address] Plt 395 150 - 400 K/cumm MARCELINO Comment:Testing performed by : [address] [address] MPV 10.1 9.1 - 12.3 fL [place] Comment:Testing performed by : [address] [address] RBC 4.71 3.90 - 5.20 M/cumm MARCELINO Comment:Testing performed by : [address] [address] MCV 86.4 81.3 - 96.4 fL [place] Comment:Testing performed by : [address] [address] MCH 26.8(L) 27.1 - 33.3 pg M[facility]ELINO Comment:Testing performed by : [address] [address] MCHC 31.0(L) 32.3 - 35.7 g/dL M[facility]ELINO Comment:Testing performed by : [address] [place] [address] RDW CV 17.2(H) 11.1 - 14.9 % [facility] Comment:Testing performed by : [address] [address] RDW SD 54.4(H) 35.7 - 48.1 fL MACRELINO HAYWOOD Comment:Testing performed by : [address] [address] NRBC abs 0.00 0.00 - 0.01 K/cumm MARCELINO Comment:Testing performed by : [address] [address] Blood 11/07/2024 12:2 3 PM CDT 11/07/2024 12:28 PM CDT Conor Ventura MD LAB BLOOD ORDERABL ES Final Result [facility] Department [place] [address] * Blood culture Blood (11/07/2024 12:23 PM CDT) Report Final Report: No growth Comment:Testing performed by : [facility], [address] [facility] [place] [address] Blood 11/07/2024 12:2 3 PM CDT 11/07/2024 4:14 PM CDT Narrative MARCELINO HAYWOOD - 11/12/2024 7:00 AM CDT Collection->Peripheral 1. Blood cultures are incubated for 4 days on a continuously monitored blood culture system. The first report of a negative culture is issued within 24 hours of receipt of the specimen in the laboratory. 2. Positive culture results are reported as soon as they are detected. 3. The most important factor for detection of microbes in the setting of bloodstream infection is the volume of blood submitted for culture. Failure to collect an optimal blood volume can result in false negative blood cultures. 4. For pediatric patients, the recommended blood volume to collect follows a weight based strategy. See the electronic test catalog for collection instructions. 5. For positive blood cultures, a rapid molecular test may be performed for organism identification using the rehana ePlex blood culture identification panel for gram positive (BCID-GP) and gram negative (BCID-GN) organisms. This nucleic acid amplification test detects microbial DNA in positive blood culture broth. This assay has been cleared by the [place] Food and Drug Administration and its performance characteristics have been verified by the [facility] Microbiology Laboratory. For questions about this culture, contact the Microbiology Laboratory at [phone]. Interpretive data was last revised on 24. Conor Ventura MD LAB MICROBIOLOGY - GENERAL ORDERABLES Final Result [address] [employer] [place] [address] * (ABNORMAL) Phosphorus (11/07/2024 12:23 PM CDT) Phosphorus, pl 2.0(L) 2.3 - 4.5 mg/dL Comment:Testing performed by : [address] [address] Blood 11/07/2024 12:2 3 PM CDT 11/07/2024 12:28 PM CDT Conor Ventura MD LAB BLOOD ORDERABL ES Final Result Performing Organization Address City/[facility]/ZIP Co de Phone Number [address] [address] * Magnesium (11/07/2024 12:23 PM CDT) Magnesium 1.4 1.4 - 2.5 mg/dL Comment:Testing performed by : [address] [address] Blood 11/07/2024 12:2 3 PM CDT 11/07/2024 12:28 PM CDT Conor Ventura MD LAB BLOOD ORDERABL ES Final Result [facility] [address] [facility] Department [place] [address] * (ABNORMAL) Comprehensive metabolic panel (11/07/2024 12:23 PM CDT) Sodium 145 135 - 145 mmol/L Comment:Testing performed by : [address] [address] Potassium, pl 3.1(L) 3.3 - 4.9 mmol/L MARCELINO Comment: Hemolyzed; Potassium value may be falsely elevated by as much as 1.0 mmol/L. Suggest redraw and reanalysis. Testing performed by: [address] [address] Chloride 107 97 - 110 mmol/L MARCELINO Comment:Testing performed by : [address] [address] CO2 22 22 - 32 mmol/L MARCELINO Comment:Testing performed by : [address] [address] Anion gap 16(H) 2 - 15 mmol/L MARCELINO Comment:Testing performed by : [address] [address] BUN 10 6 - 25 mg/dL M[facility]ELINO Comment:Testing performed by : [address] [address] Creatinine 0.50(L) 0.60 - 1.10 mg/dL MARCELINO Comment:Testing performed by : [address] [address] Glucose 161 70 - 199 mg/dL MARCELINO Comment: Interpretive Data Fasting glucose >/= 126 mg/dl is diagnostic for diabetes. Fasting is defined as no caloric intake for at least 8 hours. Fasting glucose between 100 mg/dl to 125 mg/dl is diagnostic of prediabetes. In a patient with classic symptoms of hyperglycemia or hyperglycemic crisis, a random glucose >/= 200 mg/dl is diagnostic for diabetes. In the absence of unequivocal hyperglycemia, results should be confirmed by repeat testing. The classification and Diagnosis of Diabetes Diabetes Care 2022; 46: S19-S40. Current interpretive data was last revised 2022. Testing performed by: [address] [address] Calcium 10.1 8.5 - 10.3 mg/dL MARCELINO Comment:Testing performed by : [address] [address] Bilirubin, total 0.3 0.1 - 1.2 mg/dL MARCELINO Comment:Testing performed by : [address] [address] Protein, pl 6.5 6.5 - 8.5 g/dL MARCELINO Comment:Testing performed by : [address] [address] Albumin 3.2(L) 3.5 - 5.0 g/dL MARCELINO Comment:Testing performed by : [address] [address] Alk phos 100 40 - 130 Units/L MARCELINO Comment:Testing performed by : [address] [address] ALT 8 7 - 45 Units/L MARCELINO Comment:Testing performed by : [address] [address] AST 13 10 - 45 Units/L MARCELINO Comment:Testing performed by : [address] [address] Blood 11/07/2024 12:2 3 PM CDT 11/07/2024 12:28 PM CDT Conor Ventura MD LAB BLOOD ORDERABL ES Final Result [facility] [address] [facility] Department [place] [address] * POCT glucose (11/07/2024 8:12 AM CDT) Glucose, POC 138 70 - 199 mg/dL Comment:Testing performed by : [address] [address] Blood 11/07/2024 8:12 AM CDT 11/07/2024 8:12 AM CDT Conor Ventura MD LAB POCT ORDERABLE S - DEVICE Final Result Performing Organization Address [facility] Co de Phone Number [address] [place] [address] * POCT glucose (11/07/2024 4:29 AM CDT) Glucose, POC 156 70 - 199 mg/dL Comment:Testing performed by : [address] [address] Blood 11/07/2024 4:29 AM CDT 11/07/2024 4:29 AM CDT Satinder Dougherty MD LAB POCT ORDERABLES - D EVICE Final Result Performing Organization Address [facility] de Phone Number [address] [address] * POCT glucose (11/06/2024 11:19 PM CDT) Glucose, POC 134 70 - 199 mg/dL Comment:Testing performed by : [address] [address] Glucose comment 1 Use This Result MARCELINO Comment:Testing performed by : [address] [address] Blood 11/06/2024 11:1 9 PM CDT 11/06/2024 11:19 PM CDT Satinder Dougherty MD LAB POCT ORDERABLES - D EVICE Final Result Performing Organization Address [facility] Co de Phone Number [place] [id number] [place] [address] * POCT glucose (11/06/2024 7:57 PM CDT) Glucose, POC 160 70 - 199 mg/dL Comment:Testing performed by : [address] [address] Glucose comment 1 Use This Result MARCELINO Comment:Testing performed by : [address] [address] Blood 11/06/2024 7:57 PM CDT 11/06/2024 7:57 PM CDT Satinder Dougherty MD LAB POCT ORDERABLES - D EVICE Final Result Performing Organization Address [facility] Co de Phone Number [address] [place] [address] * POCT glucose (11/06/2024 7:38 PM CDT) Glucose, POC 151 70 - 199 mg/dL Comment:Testing performed by : [address] [address] Glucose comment 1 Use This Result MARCELINO Comment:Testing performed by : [address] [address] Blood 11/06/2024 7:38 PM CDT 11/06/2024 7:38 PM CDT Satinder Dougherty MD LAB POCT ORDERABLES - D EVICE Final Result Performing Organization Address [facility] de Phone Number [address] [place] [address] * POCT glucose (11/06/2024 5:21 PM CDT) Glucose, POC 161 70 - 199 mg/dL Comment:Testing performed by : [address] [address] Blood 11/06/2024 5:21 PM CDT 11/06/2024 5:21 PM CDT us Satinder Dougherty MD LAB POCT ORDERABLES - D EVICE Final Result Performing Organization Address City/[facility] Co de Phone Number MARCELINO [address] [facility] [place] [address] * POCT glucose (11/06/2024 12:41 PM CDT) Pathologist [facility] Glucose, POC 147 70 - 199 mg/dL Comment:Testing performed by : [facility], [address] [place] [address]., [address] Blood 11/06/2024 12:4 1 PM CDT 11/06/2024 12:41 PM CDT us Satinder Dougherty MD LAB POCT ORDERABLES - D EVICE Final Result Performing Organization Address [facility] Co de Phone Number M[facility] [address] [place] [address] * eGFR (11/06/2024 12:34 PM CDT) [facility] eGFR 88 >=60 mL/min/1. 73 m2 Comment: Interpretive Data Reference Interval Normal >/= 90 mL/min/1.73m2 Mildly decreased* 60 - 89 mL/min/1.73m2 Mildly to moderately decreased 45 - 59 mL/min/1.73m2 Moderately to severely decreased 30 - 44 mL/min/1.73m2 Severely decreased 15 - 29 mL/min/1.73m2 Kidney Failure < 15 mL/min/1.73m2 *Relative to young adult level Estimated glomerular filtration rate is determined by the 2020 CKD-EPI equation recommended by the National Kidney Foundation (A Unifying Approach to GFR Estimation: Recommendations of the NKF-ASK Task Force on Reassessing the Inclusion of Race in Diagnosing Kidney Disease, JASN 2020). The CKD-EPI equation should not be used for patients with unstable renal function and has not been validated in children and those over 70. Current interpretive data was last reviewed 2021. Testing performed by: [facility], [address] [place] [address]., [address] Blood 11/06/2024 12:3 4 PM CDT 11/06/2024 12:50 PM CDT Satinder Dougherty MD LAB BLOOD ORDERABLES Fi nal Result Performing Organization Address City/[facility] Co de Phone Number MARCELINO [address] [place] [address] * eGFR (11/06/2024 12:34 PM CDT) eGFR 89 >=60 mL/min/1. 73 m2 Comment: Interpretive Data Reference Interval Normal >/= 90 mL/min/1.73m2 Mildly decreased* 60 - 89 mL/min/1.73m2 Mildly to moderately decreased 45 - 59 mL/min/1.73m2 Moderately to severely decreased 30 - 44 mL/min/1.73m2 Severely decreased 15 - 29 mL/min/1.73m2 Kidney Failure < 15 mL/min/1.73m2 *Relative to young adult level Estimated glomerular filtration rate is determined by the 2020 CKD-EPI equation recommended by the National Kidney Foundation (A Unifying Approach to GFR Estimation: Recommendations of the NKF-ASK Task Force on Reassessing the Inclusion of Race in Diagnosing Kidney Disease, JASN 2020). The CKD-EPI equation should not be used for patients with unstable renal function and has not been validated in children and those over 70. Current interpretive data was last reviewed 2021. Testing performed by: [address] [address] Blood 11/06/2024 12:3 4 PM CDT 11/06/2024 12:50 PM CDT Satinder Dougherty MD LAB BLOOD ORDERABLES Fi nal Result Performing Organization Address City/[facility]/ZIP Co de Phone Number MARCELINO [address] [place] [address] * (ABNORMAL) Differential, auto (11/06/2024 12:34 PM CDT) Neutrophil abs 8.3(H) 1.5 - 6.5 K/cumm Comment:Testing performed by : [address] [address] Imm gran abs 0.1 0.0 - 0.1 K/cumm [facility] Comment:Testing performed by : [address] [address] Lymphocyte abs 1.1 0.8 - 3.3 K/cumm MARCELINO Comment:Testing performed by : [address] [address] Monocyte abs 0.9(H) 0.2 - 0.8 K/cumm [facility] Comment:Testing performed by : [address] [address] Eosinophil abs 0.1 0.0 - 0.5 K/cumm [facility] Comment:Testing performed by : [address] [address] Basophil abs 0.1 0.0 - 0.1 K/cumm [facility] Comment:Testing performed by : [address] [address] Neutrophil pct 79.3 % [facility] Comment: Interpretive Data Percent cell count reference ranges are not reported, since discordance with absolute values may lead to misinterpretation of CBC data. Current Interpretive Data was last revised on 2017. Testing performed by: [address] [address] Imm gran pct 1.0 % [facility] Comment: Interpretive Data Percent cell count reference ranges are not reported, since discordance with absolute values may lead to misinterpretation of CBC data. Current Interpretive Data was last revised on 2017. Testing performed by: [address] [address] Lymphocyte pct 10.2 % [facility] Comment: Interpretive Data Percent cell count reference ranges are not reported, since discordance with absolute values may lead to misinterpretation of CBC data. Current Interpretive Data was last revised on 2017. Testing performed by: [address] [address] Monocyte pct 8.5 % [facility] Comment: Interpretive Data Percent cell count reference ranges are not reported, since discordance with absolute values may lead to misinterpretation of CBC data. Current Interpretive Data was last revised on 2017. Testing performed by: [address] [address] Eosinophil pct 0.5 % MARCELINO [place]AY[place] Comment: Interpretive Data Percent cell count reference ranges are not reported, since discordance with absolute values may lead to misinterpretation of CBC data. Current Interpretive Data was last revised on 2017. Testing performed by: [address] [address] Basophil pct 0.5 % MARCELINO HAYWOOD Comment: Interpretive Data Percent cell count reference ranges are not reported, since discordance with absolute values may lead to misinterpretation of CBC data. Current Interpretive Data was last revised on 2017. Testing performed by: [address] [address] Blood 11/06/2024 12:3 4 PM CDT 11/06/2024 12:50 PM CDT us Ananya MEANS LAB BLOOD ORDERABLES Final Re [facility] [address] [facility] Department [place] [address] * (ABNORMAL) CBC with auto differential (11/06/2024 12:34 PM CDT) WBC 10.4(H) 3.8 - 9.9 K/cumm Comment:Testing performed by : [address] [address] Hgb 15.1 11.9 - 15.5 g/dL MARCELINO HAYWOOD Comment:Testing performed by : [address] [address] Hct 47.3(H) 35.6 - 45.5 % MARCELINO HAYWOOD Comment:Testing performed by : [address] [address] Plt 313 150 - 400 K/cumm MARCELINO HAYWOOD Comment:Testing performed by : [address] [address] MPV 10.9 9.1 - 12.3 fL MARCELINO HAYWOOD Comment:Testing performed by : [address] [address] RBC 5.64(H) 3.90 - 5.20 M/cumm MARCELINO Comment:Testing performed by : [address], [address] MCV 83.9 81.3 - 96.4 fL MARCELINO Comment:Testing performed by : [address] [address] MCH 26.8(L) 27.1 - 33.3 pg MARCELINO Comment:Testing performed by : [address], [address] MCHC 31.9(L) 32.3 - 35.7 g/dL MARCELINO Comment:Testing performed by : [address], [address] RDW CV 18.0(H) 11.1 - 14.9 % MARCELINO Comment:Testing performed by : [address], [address] RDW SD 51.9(H) 35.7 - 48.1 fL MARCELINO Comment:Testing performed by : [address], [address] NRBC abs 0.00 0.00 - 0.01 K/cumm MARCELINO Comment:Testing performed by : [address], [address] Blood 11/06/2024 12:3 4 PM CDT 11/06/2024 12:50 PM CDT us Ananya MEANS LAB BLOOD ORDERABLES Final Re sult [facility] [address] [facility] Department [place] [address] * Magnesium (11/06/2024 12:34 PM CDT) Magnesium 1.4 1.4 - 2.5 mg/dL Comment:Testing performed by : [address], [address] Blood 11/06/2024 12:3 4 PM CDT 11/06/2024 12:50 PM CDT Satinder Dougherty MD LAB BLOOD ORDERABLES Fi nal Result Performing Organization Address City/[facility] Co de Phone Number [address] [address] * Creatinine (11/06/2024 12:34 PM CDT) Pathologist [facility] [place] Creatinine 0.60 0.60 - 1.10 mg/dL Comment:Testing performed by : [address] [address] Blood 11/06/2024 12:3 4 PM CDT 11/06/2024 12:50 PM CDT Satinder Dougherty MD LAB BLOOD ORDERABLES Fi nal Result Performing Organization Address [facility] Phone Number [address] [place] [address] * (ABNORMAL) Basic metabolic panel (11/06/2024 12:34 PM CDT) [facility] Sodium 142 135 - 145 mmol/L Comment:Testing performed by : [address] [address] Potassium, pl 2.9(L) 3.3 - 4.9 mmol/L MARCELINO Comment: Hemolyzed; Potassium value may be falsely elevated by as much as 1.0 mmol/L. Suggest redraw and reanalysis. Testing performed by: [address] [address] Chloride 101 97 - 110 mmol/L MARCELINO Comment:Testing performed by : [address] [address] CO2 20(L) 22 - 32 mmol/L MARCELINO Comment:Testing performed by : [address] [address] Anion gap 21(H) 2 - 15 mmol/L MARCELINO Comment:Testing performed by : [address] [address] BUN 9 6 - 25 mg/dL MARCELINO HAYWOOD Comment:Testing performed by : [address] [address] Creatinine 0.64 0.60 - 1.10 mg/dL MARCELINO HAYWOOD Comment:Testing performed by : [address] [address] Glucose 164 70 - 199 mg/dL MARCELINO HAYWOOD Comment: Interpretive Data Fasting glucose >/= 126 mg/dl is diagnostic for diabetes. Fasting is defined as no caloric intake for at least 8 hours. Fasting glucose between 100 mg/dl to 125 mg/dl is diagnostic of prediabetes. In a patient with classic symptoms of hyperglycemia or hyperglycemic crisis, a random glucose >/= 200 mg/dl is diagnostic for diabetes. In the absence of unequivocal hyperglycemia, results should be confirmed by repeat testing. The classification and Diagnosis of Diabetes Diabetes Care 2021; 46: S19-S40. Current interpretive data was last revised 2022. Testing performed by: [address] [address] Calcium 10.2 8.5 - 10.3 mg/dL MARCELINO Comment:Testing performed by : [address] [address] Blood 11/06/2024 12:3 4 PM CDT 11/06/2024 12:50 PM CDT Satinder Dougherty MD LAB BLOOD ORDERABLES Fi nal Result MARCELINO [address] [facility] Department [place] [address] * (ABNORMAL) POC Blood Gas and Chemistries, Arterial - (11/06/2024 9:08 AM CDT) Pathologist [facility] [place] pH, art POC 7.54(H) 7.35 - 7.45 Comment:Testing performed by : [address] [address] pCO2, art POC 28(L) 35 - 45 mmHg MARCELINO HAYWOOD Comment:Testing performed by : [address] [address] pO2, art POC 95 83 - 108 mmHg MARCELINO Comment:Testing performed by : [facility], [address] [place] [address]., [address] HCO3, art (Calc) POC 24 20 - 30 mmol/L MARCELINO Comment:Testing performed by : [facility], [address] [place] [address], [place]., [address] Base excess, art POC 2 mmol/L MARCELINO Comment: Interpretive Data No reference range established. Current interpretive data was last revised 2020. Testing performed by: [facility], [address] [place] [address]., [address] Blood 11/06/2024 9:08 AM CDT 11/06/2024 9:08 AM CDT us Satinder Dougherty MD LAB POCT ORDERABLES - D EVICE Final Result MARCELINO [address] [facility] Department [place] [address] * XR Chest 1 View (11/06/2024 9:08 AM CDT) Anatomical Region Laterality Modality Body, Chest N/A Computed Radiogr aphy 11/06/2024 9:51 AM CDT Narrative 11/06/2024 9:52 AM CDT EXAM DESCRIPTION: XR CHEST 1 VIEW REASON FOR STUDY: SHORTNESS OF BREATH, WHY IS SHE SOB Worsening SOB this morning TECHNIQUE: Single frontal radiographic view(s) of the chest. COMPARISON: 11/02/2024 FINDINGS: There is cardiomegaly. There are mild atherosclerotic changes of the aorta. The pulmonary vasculature and mediastinum are grossly stable. There is no definite evidence of a pneumothorax. There is no definite evidence of a pleural effusion. There are patchy left basilar airspace opacities. The osseous structures are acutely grossly stable. IMPRESSION: Patchy left basilar airspace opacities, which may be related to subsegmental atelectasis/scarring versus developing airspace disease. Cardiomegaly. THIS IS AN ELECTRONICALLY VERIFIED FINAL REPORT 11/06/2024 9:52 AM - Electronically signed by Layla Ballard D.O. PS: PS Report ID: [id number] Reading Location: [id number] Procedure Note Layla Ballard, DO - 11/06/2024 EXAM DESCRIPTION: XR CHEST 1 VIEW REASON FOR STUDY: SHORTNESS OF BREATH, WHY IS SHE SOB Worsening SOB this morning TECHNIQUE: Single frontal radiographic view(s) of the chest. COMPARISON: 11/02/2024 FINDINGS: There is cardiomegaly. There are mild atherosclerotic changesof the aorta. The pulmonary vasculature and mediastinum are grossly stable. There is no definite evidence of a pneumothorax. There is no definite evidence of a pleural effusion. There are patchy left basilar airspace opacities. The osseous structures are acutely grossly stable. IMPRESSION: Patchy left basilar airspace opacities, which may be related tosubsegmental atelectasis/scarring versus developing airspace disease. Cardiomegaly. THIS IS AN ELECTRONICALLY VERIFIED FINAL REPORT 11/06/2024 9:52 AM - Electronically signed by Layla Ballard D.O. PS: PS Report ID: [id number] Reading Location: [id number] Satinder Dougherty MD IMG XR PROCEDURES Final Result * POCT glucose (11/06/2024 8:29 AM CDT) [facility] Signature Glucose, POC 132 70 - 199 mg/dL Comment:Testing performed by : [facility], [address] [place] [address]., [id number] Blood 11/06/2024 8:29 AM CDT 11/06/2024 8:29 AM CDT Satinder Dougherty MD LAB POCT ORDERABLES - D EVICE Final Result [facility] [address] [facility] Department [place] [address] * POCT glucose (11/06/2024 4:46 AM CDT) Glucose, POC 155 70 - 199 mg/dL Comment:Testing performed by : [address] [address] Glucose comment 1 Use This Result MARCELINO Comment:Testing performed by : [address] [address] Blood 11/06/2024 4:46 AM CDT 11/06/2024 4:46 AM CDT Satinder Dougherty MD LAB POCT ORDERABLES - D EVICE Final Result Performing Organization Address [facility] de Phone Number [address] [employer] [place] [address] * POCT glucose (11/06/2024 12:07 AM CDT) Glucose, POC 140 70 - 199 mg/dL Comment:Testing performed by : [address] [address] Glucose comment 1 Use This Result MARCELINO Comment:Testing performed by : [address] [address] Blood 11/06/2024 12:0 7 AM CDT 11/06/2024 12:07 AM CDT Satinder Dougherty MD LAB POCT ORDERABLES - D EVICE Final Result Performing Organization Address City/[facility] Co de Phone Number [address] [place] [address] * POCT glucose (11/05/2024 9:33 PM CDT) Glucose, POC 127 70 - 199 mg/dL Comment:Testing performed by : [address] [address] Glucose comment 1 Use This Result [facility] Comment:Testing performed by : [address] [address] Blood 11/05/2024 9:33 PM CDT 11/05/2024 9:33 PM CDT us Satinder Dougherty MD LAB POCT ORDERABLES - D EVICE Final Result Performing Organization Address [facility] Co de Phone Number MARCELINO [address] [place] [address] * POCT glucose (11/05/2024 4:12 PM CDT) Glucose, POC 140 70 - 199 mg/dL Comment:Testing performed by : [facility], [address] [place] [address]., [address] Blood 11/05/2024 4:1 2 PM CDT 11/05/2024 4:12 PM CDT Satinder Dougherty MD LAB POCT ORDERABLES - D EVICE Final Result Performing Organization Address [facility] de Phone Number MARCELINO [address] [place] [address] * MRI Brain WO Contrast (11/05/2024 1:10 PM CDT) Anatomical Region Laterality Modality Head and Neck N/A Magnetic Resonan ce 11/05/2024 1:44 PM CDT Narrative 11/05/2024 1:51 PM CDT EXAM DESCRIPTION: MRI BRAIN WO CONTRAST REASON FOR STUDY: Mental status change, unknown cause Mental status change, unknown cause. Best obtained imaging due to patient movement and breathing TECHNIQUE: Multiplanar imaging includes non-contrasted T1, T2, FLAIR, and diffusion with ADC map sequences. Additional sequence(s) sensitive to blood products. Images stored on PACS. COMPARISON: MRI brain dated 08/01/2019. CT head without contrast dated 11/02/2024, 10/10/2024, 10/01/2024 and 12/24/2023. CTA head and neck dated 10/01/2024. FINDINGS: Multiple of the sequences are degraded by motion related artifact despite repeat attempts. There is no diffusion restriction to suggest acute/recent infarction. No parenchymal susceptibility signal to indicate blood degradation products. The size and configuration of the ventricles and sulci are similar when compared to the previous examinations. The basilar cisterns are maintained. Chronic lacunar infarction in the bilateral lindsay radiata and basal ganglia. Right cerebellar tiny chronic lacunar infarction. Remainder of the numerous well-circumscribed T2 hyperintensities in the bilateral cerebral white matter, basal ganglia and midbrain would be most compatible with prominent perivascular spaces. An additional occasional chronic lacunar infarction can also have similar imaging appearance. Elsewhere the subcortical and periventricular white matter T2/FLAIR hyperintense signal in the bilateral cerebral hemispheres is nonspecific but compatible with chronic microvascular ischemic type change in a patient of this age. Similar signal alteration is seen in the kathy. Bilateral cataract eye surgeries. Near completely opacified left sphenoid sinus with areas of relative T2 hypointense, T1 intermediate signal suggesting chronic inspissated secretions and or fungal colonization. There is trace T2 hyperintense signal in the bilateral mastoid air cells. This MRI brain is not optimized for evaluation of the temporomandibular joints and mandible. There are bilateral mandibular postoperative changes. Rounded T2 hyperintensities along the expected location of the mandibular heads is incompletely characterized on this MRI and could reflect additional postoperative changes, synovitis or other T2 hyperintense lesion. Request correlation with physical examination. The bony morphology is better seen on the previous CT examinations. IMPRESSION: 1. No acute/recent infarction. 2. Chronic lacunar infarctions, chronic microvascular ischemic type white-matter changes and additional findings as above. THIS IS AN ELECTRONICALLY VERIFIED FINAL REPORT 11/05/2024 1:51 PM - Electronically signed by Wilfredo Jonas D.O. AP: KEVIN Report ID: [id number] Reading Location: [id number] Procedure Note Wilfredo Jonas, DO - 11/05/2024 EXAM DESCRIPTION: MRI BRAIN WO CONTRAST REASON FOR STUDY: Mental status change, unknown cause Mental status change, unknown cause. Best obtained imaging due to patient movement and breathing TECHNIQUE: Multiplanar imaging includes non-contrasted T1, T2, FLAIR, and diffusion with ADC map sequences. Additional sequence(s) sensitive [employer] products. Images stored on PACS. COMPARISON: MRI brain dated 08/01/2019. CT head without contrast dated 11/02/2024, 10/10/2024, 10/01/2024 and 12/24/2023. CTA head and neckdated 10/01/2024. FINDINGS: Multiple of the sequences are degraded by motion relatedartifact despite repeat attempts. There is no diffusion restriction to suggest acute/recent infarction. No parenchymal susceptibility signal to indicate blood degradationproducts. The size and configuration of the ventricles and sulci are similar when compared to the previous examinations. The basilar cisterns aremaintained. Chronic lacunar infarction in the bilateral lindsay radiata and basalganglia. Right cerebellar tiny chronic lacunar infarction. Remainder of thenumerous well-circumscribed T2 hyperintensities in the bilateral cerebral whitematter, basal ganglia and midbrain would be most compatible with prominent perivascular spaces. An additional occasional chronic lacunar infarctioncan also have similar imaging appearance. Elsewhere the subcortical and periventricular white matter T2/FLAIR hyperintense signal in the bilateral cerebral hemispheres is nonspecific but compatible with chronicmicrovascular ischemic type change in a patient of this age. Similar signal alterationis seen in the kathy. Bilateral cataract eye surgeries. Near completely opacified left sphenoid sinus with areas of relative T2 hypointense, T1 intermediate signalsuggesting chronic inspissated secretions and or fungal colonization. There is traceT2 hyperintense signal in the bilateral mastoid air cells. This MRI brain isnot optimized for evaluation of the temporomandibular joints and mandible.There are bilateral mandibular postoperative changes. Rounded [id number] along the expected location of the mandibular heads is incompletely characterized on this MRI and could reflect additional postoperativechanges, synovitis or other T2 hyperintense lesion. Request correlation withphysical examination. The bony morphology is better seen on the previous CT examinations. IMPRESSION: 1. No acute/recent infarction. 2. Chronic lacunar infarctions, chronic microvascular ischemic type white-matter changes and additional findings as above. THIS IS AN ELECTRONICALLY VERIFIED FINAL REPORT 11/05/2024 1:51 PM - Electronically signed by Wilfredo Jonas D.O. AP: KEVIN Report ID: [id number] Reading Location: [id number] Arsh Ruby MD IMG MRI PROCEDURES Fi nal Result * MRI Cervical Spine WO Contrast (11/05/2024 12:52 PM CDT) Anatomical Region Laterality Modality Spine N/A Magnetic Resonan ce 11/05/2024 2:0 4 PM CDT Narrative 11/05/2024 2:14 PM CDT EXAM DESCRIPTION: MRI CERVICAL SPINE WO CONTRAST REASON FOR STUDY: Myelopathy, acute, cervical spine Mental status change, unknown cause. Best obtained imaging due to patient movement and breathing TECHNIQUE: Sagittal and Axial imaging includes T1, T2, STIR and gradient echo sequences. COMPARISON: Cervical spine CT dated 09/05/2019. FINDINGS: Multiple of the sequences are degraded by motion related artifact. ALIGNMENT: Reversal of the normal cervical lordosis. Grade 1 anterolisthesis of C2 on C3, C3 on C4 and C7 on T1 through T2 on T3. Grade 1 retrolisthesis of C4 on C5 through C6 on C7. VERTEBRAE: There is no acute compression fracture in the cervical spine. If trauma is suspected then a CT has higher sensitivity for spinal fractures and can be obtained as clinically indicated. Severe endplate degenerative changes with spur formation from C4-C5 through C6-C7 and to a lesser extent the remainder of the cervical levels. Additional degenerative changes of the C1-C2 interval. The subtle STIR hyperintense signal along multiple endplates including from C3 through C7 is nonspecific and presumed to be degenerative in nature. If there is concern for an infectious process then please correlate with laboratory data and attention on follow-up. DISCS: Diffuse intervertebral disc height loss ranging up to severe from C4-C5 through C6-C7. HARDWARE: None in the spine. CORD: Not adequately visualized on this severely motion degraded study. INDIVIDUAL LEVELS: C2-C3: Anterolisthesis of C2 on C3 with unroofing of the disc. Thickened ligamentum flavum. No significant spinal canal stenosis. Uncovertebral spurring and facet arthropathy with mild neural foraminal narrowing. C3-C4: Anterolisthesis of C3 on C4 with unroofing of the disc. Superimposed posterior disc osteophyte complex flattens the ventral thecal sac. Thickened ligamentum flavum. Mild spinal canal stenosis. Uncovertebral spurring and facet arthropathy with severe left and zolw-dw-olffugfr right neural foraminal narrowing. C4-C5: Retrolisthesis of C4 on C5 with unroofing of the disc. Superimposed posterior disc osteophyte complex flattens the ventral thecal sac. Thickened ligamentum flavum. No significant spinal canal stenosis. Uncovertebral spurring and facet arthropathy with severe neural foraminal narrowing. C5-C6: Retrolisthesis of C5 on C6 with unroofing of the disc. Superimposed posterior disc osteophyte complex flattens the ventral thecal sac. Thickened ligamentum flavum. No significant spinal canal stenosis. Uncovertebral spurring and facet arthropathy with severe neural foraminal narrowing. C6-C7: Retrolisthesis of C6 on C7 with unroofing of the disc. Superimposed posterior disc osteophyte complex and thickened ligamentum flavum. Mild spinal canal stenosis. Uncovertebral spurring and facet arthropathy with moderate to severe neural foraminal narrowing. C7-T1: Anterolisthesis of C7 on T1 with unroofing of the disc. Thickened ligamentum flavum. Mild spinal canal stenosis. Uncovertebral spurring and facet arthropathy with mild neural foraminal narrowing. UPPER THORACIC: Incompletely imaged. Multilevel degenerative changes without high-grade spinal canal stenosis. OTHER: The right C3 through C6 and left C2 through C7 posterior paraspinal soft tissue STIR hyperintense signal. IMPRESSION: 1. 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 There is no high-grade spinal canal stenosis. 2. Varying degrees of osseous neural foraminal narrowing ranging up to severe and additional findings as above. 3. Loww-wmggnle-rfsr-right posterior paraspinal soft tissue STIR hyperintense signal on both sides is nonspecific and could reflect a strain or myositis. Request clinical correlation. 4. Recent cervical spine imaging is not available for comparison. An addendum can be made once priors are provided. THIS IS AN ELECTRONICALLY VERIFIED FINAL REPORT 11/05/2024 2:14 PM - Electronically signed by Wilfredo Jonas D.O. AP: AP Report ID: [id number] Reading Location: [place] [address] Procedure Note Wilfredo Jonas, DO - 11/05/2024 EXAM DESCRIPTION: MRI CERVICAL SPINE WO CONTRAST REASON FOR STUDY: Myelopathy, acute, cervical spine Mental status change, unknown cause. Best obtained imaging due to patient movement and breathing TECHNIQUE: Sagittal and Axial imaging includes T1, T2, STIR and gradientecho sequences. COMPARISON: Cervical spine CT dated 09/05/2019. FINDINGS: Multiple of the sequences are degraded by motion related artifact. ALIGNMENT: Reversal of the normal cervical lordosis. Grade 1 anterolisthesis of C2 on C3, C3 on C4 and C7 on T1 through T2 on T3.Grade 1 retrolisthesis of C4 on C5 through C6 on C7. VERTEBRAE: There is no acute compression fracture in the cervical spine.If trauma is suspected then a CT has higher sensitivity for spinal fracturesand can be obtained as clinically indicated. Severe endplate degenerativechanges with spur formation from C4-C5 through C6-C7 and to a lesser extent the remainder of the cervical levels. Additional degenerative changes of the C1-C2 interval. The subtle STIR hyperintense signal along multipleendplates including from C3 through C7 is nonspecific and presumed to bedegenerative in nature. If there is concern for an infectious process then pleasecorrelate with laboratory data and attention on follow-up. DISCS: Diffuse intervertebral disc height loss ranging up to severe from C4-C5 through C6-C7. HARDWARE: None in the spine. CORD: Not adequately visualized on this severely motion degraded study. INDIVIDUAL LEVELS: C2-C3: Anterolisthesis of C2 on C3 with unroofing of the disc. Thickened ligamentum flavum. No significant spinal canal stenosis. Uncovertebral spurring and facet arthropathy with mild neural foraminal narrowing. C3-C4: Anterolisthesis of C3 on C4 with unroofing of the disc.Superimposed posterior disc osteophyte complex flattens the ventral thecal sac.Thickened ligamentum flavum. Mild spinal canal stenosis. Uncovertebral spurringand facet arthropathy with severe left and qmfj-hj-rupkpgvf right neuralforaminal narrowing. C4-C5: Retrolisthesis of C4 on C5 with unroofing of the disc.Superimposed posterior disc osteophyte complex flattens the ventral thecal sac.Thickened ligamentum flavum. No significant spinal canal stenosis. Uncovertebral spurring and facet arthropathy with severe neural foraminal narrowing. C5-C6: Retrolisthesis of C5 on C6 with unroofing of the disc.Superimposed posterior disc osteophyte complex flattens the ventral thecal sac.Thickened ligamentum flavum. No significant spinal canal stenosis. Uncovertebral spurring and facet arthropathy with severe neural foraminal narrowing. C6-C7: Retrolisthesis of C6 on C7 with unroofing of the disc.Superimposed posterior disc osteophyte complex and thickened ligamentum flavum. Mild spinal canal stenosis. Uncovertebral spurring and facet arthropathy with moderate to severe neural foraminal narrowing. C7-T1: Anterolisthesis of C7 on T1 with unroofing of the disc. Thickened ligamentum flavum. Mild spinal canal stenosis. Uncovertebral spurringand facet arthropathy with mild neural foraminal narrowing. UPPER THORACIC: Incompletely imaged. Multilevel degenerative changes without high-grade spinal canal stenosis. OTHER: The right C3 through C6 and left C2 through C7 posteriorparaspinal soft tissue STIR hyperintense signal. IMPRESSION: 1. Cervical disc degeneration ranging up to severe with thickenedligamentum flavum and facet arthropathy as described. There is no high-grade spinal canal stenosis. 2. Varying degrees of osseous neural foraminal narrowing ranging up to severe and additional findings as above. 3. [id number] posterior paraspinal soft tissue STIR hyperintense signal on both sides is nonspecific and could reflect astrain or myositis. Request clinical correlation. 4. Recent cervical spine imaging is not available for comparison. An addendum can be made once priors are provided. THIS IS AN ELECTRONICALLY VERIFIED FINAL REPORT 11/05/2024 2:14 PM - Electronically signed by Wilfredo Jonas D.O. AP: KEVIN Report ID: [id number] Reading Location: [place] [address] Arsh Ruby MD IMG MRI PROCEDURES Fi nal Result * POCT glucose (11/05/2024 8:11 AM CDT) [facility] Glucose, POC 146 70 - 199 mg/dL Comment:Testing performed by : [facility], [address] [place] [address], [place]., [address] Glucose comment 1 Use This Result MARCELINO Comment:Testing performed by : [address] [address] Blood 11/05/2024 8:11 AM CDT 11/05/2024 8:11 AM CDT Satinder Dougherty MD LAB POCT ORDERABLES - D EVICE Final Result Performing Organization Address [facility] de Phone Number [address] [place] [address] * POCT glucose (11/05/2024 5:56 AM CDT) [facility] Glucose, POC 147 70 - 199 mg/dL Comment:Testing performed by : [address] [address] Glucose comment 1 Use This Result MARCELINO Comment:Testing performed by : [address] [address] Blood 11/05/2024 5:56 AM CDT 11/05/2024 5:56 AM CDT Satinder Dougherty MD LAB POCT ORDERABLES - D EVICE Final Result Performing Organization Address [facility] de Phone Number [address] [employer] [place] [address] * (ABNORMAL) Differential, auto (11/05/2024 4:52 AM CDT) [facility] Signature Neutrophil abs 7.5(H) 1.5 - 6.5 K/cumm Comment:Testing performed by : [address] [address] Imm gran abs 0.1 0.0 - 0.1 K/cumm MARCELINO Comment:Testing performed by : [address] [address] Lymphocyte abs 0.9 0.8 - 3.3 K/cumm MARCELINO Comment:Testing performed by : [address] [address] Monocyte abs 1.0(H) 0.2 - 0.8 K/cumm [facility] Comment:Testing performed by : [address] [address] Eosinophil abs 0.2 0.0 - 0.5 K/cumm [facility] Comment:Testing performed by : [address] [address] Basophil abs 0.0 0.0 - 0.1 K/cumm [facility] Comment:Testing performed by : [address] [address] Neutrophil pct 77.6 % [facility] Comment: Interpretive Data Percent cell count reference ranges are not reported, since discordance with absolute values may lead to misinterpretation of CBC data. Current Interpretive Data was last revised on 2017. Testing performed by: [address] [address] Imm gran pct 0.6 % [facility] Comment: Interpretive Data Percent cell count reference ranges are not reported, since discordance with absolute values may lead to misinterpretation of CBC data. Current Interpretive Data was last revised on 2017. Testing performed by: [address] [address] Lymphocyte pct 9.6 % [facility] Comment: Interpretive Data Percent cell count reference ranges are not reported, since discordance with absolute values may lead to misinterpretation of CBC data. Current Interpretive Data was last revised on 2017. Testing performed by: [address] [address] Monocyte pct 10.3 % [facility] Comment: Interpretive Data Percent cell count reference ranges are not reported, since discordance with absolute values may lead to misinterpretation of CBC data. Current Interpretive Data was last revised on 2017. Testing performed by: [address] [address] Eosinophil pct 1.6 % [facility] Comment: Interpretive Data Percent cell count reference ranges are not reported, since discordance with absolute values may lead to misinterpretation of CBC data. Current Interpretive Data was last revised on 2017. Testing performed by: [address] [address] Basophil pct 0.3 % MARCELINO Comment: Interpretive Data Percent cell count reference ranges are not reported, since discordance with absolute values may lead to misinterpretation of CBC data. Current Interpretive Data was last revised on 2017. Testing performed by: [address] [address] Blood 11/05/2024 4:52 AM CDT 11/05/2024 5:31 AM CDT us Ananya MEANS LAB BLOOD ORDERABLES Final Re sult MARCELINO [address] [facility] Department [place] [address] * (ABNORMAL) CBC with auto differential (11/05/2024 4:52 AM CDT) WBC 9.6 3.8 - 9.9 K/cumm Comment:Testing performed by : [address] [address] Hgb 12.0 11.9 - 15.5 g/dL MARCELINO Comment:Testing performed by : [address] [address] Hct 38.7 35.6 - 45.5 % MARCELINO Comment:Testing performed by : [address] [address] Plt 374 150 - 400 K/cumm MARCELINO Comment:Testing performed by : [address] [address] MPV 10.5 9.1 - 12.3 fL MARCELINO Comment:Testing performed by : [address] [address] RBC 4.57 3.90 - 5.20 M/cumm MARCELINO HAYWOOD Comment:Testing performed by : [address] [address] MCV 84.7 81.3 - 96.4 fL MARCELINO Comment:Testing performed by : [address] [address] MCH 26.3(L) 27.1 - 33.3 pg MARCELINO Comment:Testing performed by : [address] [address] MCHC 31.0(L) 32.3 - 35.7 g/dL MARCELINO HAYWOOD Comment:Testing performed by : [address] [address] RDW CV 16.9(H) 11.1 - 14.9 % MARCELINO HAYWOOD Comment:Testing performed by : [address] [address] RDW SD 52.2(H) 35.7 - 48.1 fL MARCELINO Comment:Testing performed by : [address] [address] NRBC abs 0.00 0.00 - 0.01 K/cumm MARCELINO Comment:Testing performed by : [address] [address] Blood 11/05/2024 4:52 AM CDT 11/05/2024 5:31 AM CDT us Ananya MEANS LAB BLOOD ORDERABLES Final Re sult Performing Organization Address City/[facility]/ZIP Co de Phone Number MARCELINO [facility] [employer] [place], [place] [id number] * POCT glucose (11/05/2024 1:22 AM ELECTRONICS LEAD) [facility] Glucose, POC 138 70 - 199 mg/dL Comment:Testing performed by : [address] [address] Glucose comment 1 Use This Result MARCELINO Comment:Testing performed by : [address] [address] Blood 11/05/2024 1:22 AM ELECTRONICS LEAD 11/05/2024 1:22 AM ELECTRONICS LEAD us Satinder Dougherty MD LAB POCT ORDERABLES - D EVICE Final Result Performing Organization Address City/[facility]/ZIP Co de Phone Number MARCELINO [facility] [place] [address] * POCT glucose (11/04/2024 10:34 PM ELECTRONICS LEAD) Glucose, POC 150 70 - 199 mg/dL Comment:Testing performed by : [address] [address] Glucose comment 1 Use This Result MARCELINO Comment:Testing performed by : [address] [address] Blood 11/04/2024 10:3 4 PM ELECTRONICS LEAD 11/04/2024 10:34 PM ELECTRONICS LEAD us Satinder Dougherty MD LAB POCT ORDERABLES - D EVICE Final Result MARCELINO HAYWOOD [address] [place] [address] * (ABNORMAL) Urinalysis reflex to microscopic and culture Urine, bladder (11/04/2024 6:17 PM ELECTRONICS LEAD) Color, ur Yellow Yellow Comment:Testing performed by : [address] [address] Clarity, ur Cloudy(A) Clear MARCELINO Comment:Testing performed by : [address] [address] Specific gravity, ur 1.017 1.003 - 1.030 MARCELINO Comment:Testing performed by : [address] [address] pH, urine 6.5 MARCELINO Comment: Interpretive Data U rine pH is affected by diet, medications, systemic acid-base disturbances, and renal tubular function. pH may affect urinary stone formation. For example, urine pH below 6.0 may help reduce the tendency for calcium phosphate stones and pH greater than 6.0 may reduce the tendency for uric acid stone formation. Source: spotflux Current Interpretive Data was last revised on 2017 Testing performed by: [address] [address] Protein, ur ql 2+(A) Negative MARCELINO Comment:Testing performed by : [facility], [address] [place] [address], [place]., [address] Glucose, ur ql 1+(A) Negative MARCELINO HAYWOOD Comment:Testing performed by : [address] [address] Ketones, ur 2+(A) Negative MARCELINO Comment:Testing performed by : [address], [place]., [address] Bilirubin, ur Negative Negative MARCELINO Comment:Testing performed by : [address], [place]., [address] Blood, ur 3+(A) Negative MARCELINO Comment:Testing performed by : [address] [address] Urobilinogen, ur 2.0(A) <2.0 mg/dL MARCELINO Comment:Testing performed by : [address], [place]., [address] Nitrite, ur Negative Negative MARCELINO Comment:Testing performed by : [address] [address] Leukocyte esterase, ur 4+(A) Negative MARCELINO Comment:Testing performed by : [address] [address] UA reflex comment Reflex to microscopic UA will be performed. MARCELINO Comment:Testing performed by : [address], [place]., [address] Urine, bladder 11/04/2024 6: 17 PM ELECTRONICS LEAD 11/04/2024 6:21 PM ELECTRONICS LEAD Narrative MARCELINO - 11/04/2024 6:24 PM ELECTRONICS LEAD Straight catheterization please us Satinder Dougherty MD LAB MICROBIOLOGY - GENE RAL ORDERABLES Final Result MARCELINO [address] [facility] Department [place] [address] * (ABNORMAL) Urinalysis, microscopic only (11/04/2024 6:17 PM ELECTRONICS LEAD) WBC, ur >50(A) 0 - 5 /HPF Comment:Testing performed by : [address] [address] RBC, ur >50(A) 0 - 2 /HPF MARCELINO Comment:Testing performed by : [address] [address] Bacteria, ur 4+(A) MARCELINO HAYWOOD Comment:Testing performed by : [address], [place]., [address] Mucous, ur Present(A) MARCELINO Comment:Testing performed by : [address], [place]., [address] Culture Reflex Comment Reflex to urine culture will be performed. MARCELINO Comment:Testing performed by : [address] [address] Urine, bladder 11/04/2024 6: 17 PM ELECTRONICS LEAD 11/04/2024 6:21 PM ELECTRONICS LEAD Satinder Dougherty MD LAB URINE ORDERABLES nal Result MARCELINO [address] [facility] Department [place] [address] * (ABNORMAL) Urine culture Urine, bladder (11/04/2024 6:17 PM ELECTRONICS LEAD) Report Final Report: Greater than or equal to 100,000 colonies/mL of Enterococcus faecium (.) Comment:Testing performed by : [facility], [address] [facility] [place] [address] Organism ENTEROCOCCUS FAECIUM MARCELINO Urine, bladder 11/04/2024 6: 17 PM ELECTRONICS LEAD 11/04/2024 9:45 PM ELECTRONICS LEAD Narrative MARCELINO - 11/08/2024 4:05 PM CDT Urine culture reflexed based upon urinalysis results. Testing performed by [facility] Micro[facility] ([phone]) Organism Antibiotic Method Susceptibility Enterococcus faecium Daptomycin (VLADIMIR) (VLADIMIR) INTERPRETA TION Susceptible Dose-dependent Enterococcus faecium Ampicillin (VLADIMIR) INTERPRETATION Resistant Enterococcus faecium Vancomycin (VLADIMIR) INTERPRETATION Resistant Enterococcus faecium Linezolid (VLADIMIR) INTERPRETATION Susceptible Enterococcus faecium Doxycycline (VLADIMIR) INTERPRETATION Resistant Enterococcus faecium Nitrofurantoin (VLADIMIR) INTERPRETATI ON Resistant Satinder Dougherty MD LAB MICROBIOLOGY - GENE RAL ORDERABLES Final Result Performing Organization Address [facility] Co de Phone Number MARCELINO [address] [address] * POCT glucose (11/04/2024 5:07 PM ELECTRONICS LEAD) Pathologist [facility] [place] Glucose, POC 162 70 - 199 mg/dL Comment:Testing performed by : [address] [address] Blood 11/04/2024 5:07 PM ELECTRONICS LEAD 11/04/2024 5:07 PM ELECTRONICS LEAD Satinder Dougherty MD LAB POCT ORDERABLES - D EVICE Final Result Performing Organization Address [facility] de Phone Number MARCELINO [address] [place] [address] * (ABNORMAL) aPTT (11/04/2024 2:21 PM ELECTRONICS LEAD) [facility] aPTT 62(H) 22 - 37 sec Comment: Ref Range High Interpretive data aPTT test has not been evaluated for monitoring heparin therapy. The anti-Xa is the preferred test. Current interpretive data was last revised on 2019. Testing performed by: [address] [address] Blood 11/04/2024 2:21 PM ELECTRONICS LEAD 11/04/2024 2:26 PM ELECTRONICS LEAD Satinder Dougherty MD LAB BLOOD ORDERABLES Fi nal Result Performing Organization Address [facility] Co de Phone Number MARCELINO [address] [address] * (ABNORMAL) Differential, auto (11/04/2024 8:54 AM ELECTRONICS LEAD) Pathologist [facility] Neutrophil abs 7.5(H) 1.5 - 6.5 K/cumm Comment:Testing performed by : [address] [address] Imm gran abs 0.1 0.0 - 0.1 K/cumm [facility] Comment:Testing performed by : [address] [address] Lymphocyte abs 1.0 0.8 - 3.3 K/cumm CERNER Comment:Testing performed by : [address] [address] Monocyte abs 0.8 0.2 - 0.8 K/cumm [facility] Comment:Testing performed by : [address], [place]., [address] Eosinophil abs 0.1 0.0 - 0.5 K/cumm [facility] Comment:Testing performed by : [address] [address] Basophil abs 0.0 0.0 - 0.1 K/cumm [facility] Comment:Testing performed by : [address] [address] Neutrophil pct 79.1 % [facility] Comment: Interpretive Data Percent cell count reference ranges are not reported, since discordance with absolute values may lead to misinterpretation of CBC data. Current Interpretive Data was last revised on 2017. Testing performed by: [address] [address] Imm gran pct 0.6 % [facility] Comment: Interpretive Data Percent cell count reference ranges are not reported, since discordance with absolute values may lead to misinterpretation of CBC data. Current Interpretive Data was last revised on 2017. Testing performed by: [address] [address] Lymphocyte pct 10.4 % CERNER Comment: Interpretive Data Percent cell count reference ranges are not reported, since discordance with absolute values may lead to misinterpretation of CBC data. Current Interpretive Data was last revised on 2017. Testing performed by: [address] [address] Monocyte pct 8.3 % C[facility]ER Comment: Interpretive Data Percent cell count reference ranges are not reported, since discordance with absolute values may lead to misinterpretation of CBC data. Current Interpretive Data was last revised on 2017. Testing performed by: [address] [address] Eosinophil pct 1.3 % MARCELINO Comment: Interpretive Data Percent cell count reference ranges are not reported, since discordance with absolute values may lead to misinterpretation of CBC data. Current Interpretive Data was last revised on 2017. Testing performed by: [address] [address] Basophil pct 0.3 % MARCELINO Comment: Interpretive Data Percent cell count reference ranges are not reported, since discordance with absolute values may lead to misinterpretation of CBC data. Current Interpretive Data was last revised on 2017. Testing performed by: [address] [address] Blood 11/04/2024 8:54 AM ELECTRONICS LEAD 11/04/2024 9:10 AM ELECTRONICS LEAD us Ananya MEANS LAB BLOOD ORDERABLES Final Re sult [facility] [address] [facility] Department [place] [address] * (ABNORMAL) CBC with auto differential (11/04/2024 8:54 AM ELECTRONICS LEAD) WBC 9.5 3.8 - 9.9 K/cumm Comment:Testing performed by : [address] [address] Hgb 13.1 11.9 - 15.5 g/dL MARCELINO HAYWOOD Comment:Testing performed by : [address] [address] Hct 41.5 35.6 - 45.5 % MARCELINO HAYWOOD Comment:Testing performed by : [address] [address] Plt 387 150 - 400 K/cumm MARCELINO HAYWOOD Comment:Testing performed by : [address] [address] MPV 10.4 9.1 - 12.3 fL MARCELINO HAYWOOD Comment:Testing performed by : [address] [address] RBC 4.89 3.90 - 5.20 M/cumm MARCELINO Comment:Testing performed by : [address] [address] MCV 84.9 81.3 - 96.4 fL MARCELINO Comment:Testing performed by : [address] [address] MCH 26.8(L) 27.1 - 33.3 pg MARCELINO Comment:Testing performed by : [address] [address] MCHC 31.6(L) 32.3 - 35.7 g/dL MARCELINO Comment:Testing performed by : [address] [address] RDW CV 16.9(H) 11.1 - 14.9 % MARCELINO Comment:Testing performed by : [address] [address] RDW SD 52.2(H) 35.7 - 48.1 fL MARCELINO Comment:Testing performed by : [address] [address] NRBC abs 0.00 0.00 - 0.01 K/cumm MARCELINO Comment:Testing performed by : [address] [address] Blood 11/04/2024 8:54 AM ELECTRONICS LEAD 11/04/2024 9:10 AM ELECTRONICS LEAD us Ananya MEANS LAB BLOOD ORDERABLES Final Re sult [facility] [address] [facility] Department [place] [address] * (ABNORMAL) aPTT (11/04/2024 8:54 AM ELECTRONICS LEAD) [facility] aPTT 69(H) 22 - 37 sec Comment: Ref Range High Interpretive data aPTT test has not been evaluated for monitoring heparin therapy. The anti-Xa is the preferred test. Current interpretive data was last revised on 2019. Testing performed by: [address] [address] Blood 11/04/2024 8:54 AM ELECTRONICS LEAD 11/04/2024 9:10 AM ELECTRONICS LEAD Result [facility] Jarrett Hurley MD LAB BLOOD ORDERABLES Fi nal Result Performing Organization Address [facility] de Phone Number [address] [address] * POCT glucose (11/04/2024 8:47 AM ELECTRONICS LEAD) Glucose, POC 153 70 - 199 mg/dL Comment:Testing performed by : [address] [address] Glucose comment 1 Use This Result MARCELINO Comment:Testing performed by : [address] [address] Blood 11/04/2024 8:47 AM ELECTRONICS LEAD 11/04/2024 8:47 AM ELECTRONICS LEAD Result [facility] Satinder Dougherty MD LAB POCT ORDERABLES - D EVICE Final Result Performing Organization Address [facility] de Phone Number [address] [address] * POCT glucose (11/04/2024 3:35 AM ELECTRONICS LEAD) Glucose, POC 162 70 - 199 mg/dL Comment:Testing performed by : [address] [address] Glucose comment 1 Use This Result MARCELINO Comment:Testing performed by : [address] [address] Blood 11/04/2024 3:35 AM ELECTRONICS LEAD 11/04/2024 3:35 AM ELECTRONICS LEAD Satinder Dougherty MD LAB POCT ORDERABLES - D EVICE Final Result Performing Organization Address [facility]/ZIP Co de Phone Number MARCELINO [address] [address] * (ABNORMAL) aPTT (11/04/2024 12:10 AM ELECTRONICS LEAD) aPTT 52(H) 22 - 37 sec Comment: Ref Range High Interpretive data aPTT test has not been evaluated for monitoring heparin therapy. The anti-Xa is the preferred test. Current interpretive data was last revised on 2019. Testing performed by: [address] [address] Blood 11/04/2024 12:1 0 AM ELECTRONICS LEAD 11/04/2024 12:13 AM ELECTRONICS LEAD Jarrett Hurley MD LAB BLOOD ORDERABLES Fi nal Result Performing Organization Address [facility] de Phone Number [address] [address] * POCT glucose (11/03/2024 11:02 PM ELECTRONICS LEAD) Glucose, POC 135 70 - 199 mg/dL Comment:Testing performed by : [address] [address] Glucose comment 1 Use This Result [facility] Comment:Testing performed by : [address] [address] Blood 11/03/2024 11:0 2 PM ELECTRONICS LEAD 11/03/2024 11:02 PM ELECTRONICS LEAD Satinder Dougherty MD LAB POCT ORDERABLES - D EVICE Final Result Performing Organization Address [facility] Co de Phone Number [address] [address] * POCT glucose (11/03/2024 7:11 PM ELECTRONICS LEAD) Glucose, POC 148 70 - 199 mg/dL Comment:Testing performed by : [address] [address] Glucose comment 1 Use This Result CERNER MH Comment:Testing performed by : [address] [address] Blood 11/03/2024 7:11 PM ELECTRONICS LEAD 11/03/2024 7:11 PM ELECTRONICS LEAD Satinder Dougherty MD LAB POCT ORDERABLES - D EVICE Final Result Performing Organization Address [facility] de Phone Number MARCELINO [address] [place] [address] * (ABNORMAL) aPTT (11/03/2024 4:26 PM ELECTRONICS LEAD) aPTT 105(H) 22 - 37 sec Comment: Ref Range High Interpretive data aPTT test has not been evaluated for monitoring heparin therapy. The anti-Xa is the preferred test. Current interpretive data was last revised on 2019. Testing performed by: [address] [address] Blood 11/03/2024 4:26 PM ELECTRONICS LEAD 11/03/2024 4:32 PM ELECTRONICS LEAD Satinder Dougherty MD LAB BLOOD ORDERABLES Fi nal Result Performing Organization Address [facility] de Phone Number OR[address] [address] * POCT glucose (11/03/2024 4:01 PM ELECTRONICS LEAD) Glucose, POC 133 70 - 199 mg/dL Comment:Testing performed by : [address] [address] Glucose comment 1 Use This Result MARCELINO Comment:Testing performed by : [address] [address] Glucose comment 2 RN/MD Notified MARCELINO HAYWOOD Comment:Testing performed by : [address] [address] Blood 11/03/2024 4:01 PM ELECTRONICS LEAD 11/03/2024 4:01 PM ELECTRONICS LEAD Satinder Dougherty MD LAB POCT ORDERABLES - D EVICE Final Result Performing Organization Address [facility] de Phone Number MARCELINO [address] [employer] [place] [address] * POCT glucose (11/03/2024 11:57 AM ELECTRONICS LEAD) [facility] Glucose, POC 142 70 - 199 mg/dL Comment:Testing performed by : [address], [address] Glucose comment 1 Use This Result MARCELINO HAYWOOD Comment:Testing performed by : [address], [address] Glucose comment 2 RN/MD Notified MARCELINO HAYWOOD Comment:Testing performed by : [address] [address] Blood 11/03/2024 11:5 7 AM ELECTRONICS LEAD 11/03/2024 11:57 AM ELECTRONICS LEAD Satinder Dougherty MD LAB POCT ORDERABLES - D EVICE Final Result Performing Organization Address [facility] de Phone Number MARCELINO [facility] [place] [address] * TRANSTHORACIC ECHO (TTE) LIMITED/FOLLOW UP WO DOPPLER/CF W CONTRAST (11/03/2024 11:55 AM ELECTRONICS LEAD) [facility] LV EF 55-60 % CONS SCIMAGE Anatomical Region Laterality Modality Ultrasound 11/03/2024 11:4 1 AM ELECTRONICS LEAD Narrative 11/03/2024 12:41 PM ELECTRONICS LEAD Transthoracic Echocardiographic Report Patient Name: SHARI KAISER M : 1940 (84y 5m) Gender: F Study Date: 11/03/2024 11:41:17 AM Ht(Inch): 66 Wt(Lb): 164 BSA: 1.86 Die Attacher: Saskia Castanon RDCS Location: [id number] Order Provider: SATINDER DOUGHERTY BMI: 26.47 Ref Provider: SATINDER DOUGHERTY - PROCEDURES: Echocardiographic Report: ([id number]) Limited Echocardiography with contrast, transthoracic, 2D, includes M-mode recording, when performed, limited study. Follow-Up Echocardiography with contrast, transthoracic, 2D, includes M-mode recording. Contrast: A contrast injection of Definity was performed to improve assessment of LV function. Definity Lot Number: [id number]. Technically difficult study due to: Technically difficult study due to inability to cooperate. INDICATIONS: NSTEMI. FINDINGS: Left Ventricle: Normal left ventricular cavity size. The Ejection Fraction is visually estimated to be 55-60 %. Regional Wall Motion: There are no regional wall motion abnormalities. Right Ventricle: Normal right ventricular size. Normal right ventricular systolic function. Left Atrium: Left Atrium not well visualized due to poor echo windows. Right Atrium: Right Atrium not well visualized due to poor echo windows. Atrial Septum: Interatrial Septum is not well visualized due to poor echo windows. Mitral Valve: Normal mitral valve leaflet structure. No mitral valve stenosis. Aortic Valve: The aortic cusps appear mildly sclerosed. No aortic valve stenosis. Tricuspid Valve: Tricuspid valve is not well visualized due to poor echo windows. Pulmonic Valve: Pulmonic Valve not well visualized due to poor echo windows. Pericardium: Normal pericardium without evidence of pericardial effusion. Aorta: Aorta not well visualized. IVC: IVC Not well visualized due to poor echo windows. CONCLUSIONS: 1. Normal left ventricular cavity size. The Ejection Fraction is visually estimated to be 55-60 %. 2. There are no regional wall motion abnormalities. MEASUREMENTS: 2D/MM Value Range Visually Estimated EF 55-60 % - ATTESTATION: I have reviewed and interpreted the pertinent images and measurements of this study. I attest to the conclusions in the final report that is provided above. DISCLAIMER: The study images and the final report will be retained in the patient chart by the [facility] for the legally required time period. This chart constitutes the legal record of any testing performed. Electronically Signed By: Jarrett Hurley MD 11/03/2024 12:40:40 PM ELECTRONICS LEAD Procedure Note Jarrett Hurley MD - 11/03/2024 Transthoracic Echocardiographic Report Patient Name: SHARI KAISER M : 1940 (84y 5m) Gender: F Study Date: 11/03/2024 11:41:17 AM Ht(Inch): 66 Wt(Lb): 164 BSA: 1.86 Die Attacher: Saskia Castanon EDSON Location: [id number] Order Provider:SATINDER DOUGHERTY BMI: 26.47 Ref Provider: SATINDER DOUGHERTY - PROCEDURES: Echocardiographic Report: ([id number]) Limited Echocardiography with contrast,transthoracic, 2D, includes M-mode recording, when performed, limited study. Follow-UpEchocardiography with contrast, transthoracic, 2D, includes M-mode recording. Contrast: A contrast injection of Definity was performed to improveassessment of LV function. Definity Lot Number: [id number]. Technically difficult study due to: Technically difficult study due toinability to cooperate. INDICATIONS: NSTEMI. FINDINGS: Left Ventricle: Normal left ventricular cavity size. The Ejection Fractionis visually estimated to be 55-60 %. Regional Wall Motion: There are no regional wall motion abnormalities. Right Ventricle: Normal right ventricular size. Normal right ventricularsystolic function. Left Atrium: Left Atrium not well visualized due to poor echo windows. Right Atrium: Right Atrium not well visualized due to poor echo windows. Atrial Septum: Interatrial Septum is not well visualized due to poor echowindows. Mitral Valve: Normal mitral valve leaflet structure. No mitral valvestenosis. Aortic Valve: The aortic cusps appear mildly sclerosed. No aortic valvestenosis. Tricuspid Valve: Tricuspid valve is not well visualized due to poor echowindows. Pulmonic Valve: Pulmonic Valve not well visualized due to poor echowindows. Pericardium: Normal pericardium without evidence of pericardialeffusion. Aorta: Aorta not well visualized. IVC: IVC Not well visualized due to poor echo windows. CONCLUSIONS: 1. Normal left ventricular cavity size. The Ejection Fraction is visuallyestimated to be 55-60 %. 2. There are no regional wall motion abnormalities. MEASUREMENTS: 2D/MM Value Range Visually Estimated EF 55-60 % - ATTESTATION: I have reviewed and interpreted the pertinent images and measurements ofthis study. I attest to the conclusions in the final report that is provided above. DISCLAIMER: The study images and the final report will be retained in the patientchart by the [facility] for the legally required time period. This chart constitutesthe legal record of any testing performed. Electronically Signed By: Jarrett Hurley MD 11/03/2024 12:40:40 PM ELECTRONICS LEAD us Satinder Dougherty MD CV ECHO PROCEDURES Gena l Result * (ABNORMAL) aPTT (11/03/2024 9:36 AM ELECTRONICS LEAD) aPTT 67(H) 22 - 37 sec Comment: Ref Range High Interpretive data aPTT test has not been evaluated for monitoring heparin therapy. The anti-Xa is the preferred test. Current interpretive data was last revised on 2019. Testing performed by: [facility], [address] [place] [address]., [id number] Blood 11/03/2024 9:36 AM ELECTRONICS LEAD 11/03/2024 9:40 AM ELECTRONICS LEAD Satinder Dougherty MD LAB BLOOD ORDERABLES Fi nal Result Performing Organization Address [facility] de Phone Number [facility] [place] [address] * POCT glucose (11/03/2024 8:00 AM ELECTRONICS LEAD) Glucose, POC 148 70 - 199 mg/dL Comment:Testing performed by : [address] [address] Glucose comment 1 Use This Result MARCELINO Comment:Testing performed by : [address] [address] Glucose comment 2 RN/MD Notified MARCELINO Comment:Testing performed by : [address] [address] Blood 11/03/2024 8:00 AM ELECTRONICS LEAD 11/03/2024 8:00 AM ELECTRONICS LEAD Satinder Dougherty MD LAB POCT ORDERABLES - D EVICE Final Result Performing Organization Address [facility] Co de Phone Number [facility] [place] [address] * POCT glucose (11/03/2024 4:09 AM ELECTRONICS LEAD) Glucose, POC 165 70 - 199 mg/dL Comment:Testing performed by : [address] [address] Glucose comment 1 RN/MD Notified MARCELINO Comment:Testing performed by : [address] [address] Glucose comment 2 Use This Result MARCELINO Comment:Testing performed by : [address] [address] Blood 11/03/2024 4:09 AM ELECTRONICS LEAD 11/03/2024 4:09 AM ELECTRONICS LEAD us Satinder Dougherty MD LAB POCT ORDERABLES - D EVICE Final Result MARCELINO [address] [facility] Department [place] [address] * Differential, auto (11/03/2024 2:21 AM ELECTRONICS LEAD) Neutrophil abs 5.0 1.5 - 6.5 K/cumm Comment:Testing performed by : [address] [address] Imm gran abs 0.0 0.0 - 0.1 K/cumm MARCELINO Comment:Testing performed by : [address] [address] Lymphocyte abs 1.0 0.8 - 3.3 K/cumm MARCELINO Comment:Testing performed by : [address] [address] Monocyte abs 0.7 0.2 - 0.8 K/cumm MARCELINO Comment:Testing performed by : [address] [address] Eosinophil abs 0.3 0.0 - 0.5 K/cumm MARCELINO Comment:Testing performed by : [address] [address] Basophil abs 0.0 0.0 - 0.1 K/cumm MARCELINO Comment:Testing performed by : [address] [address] Neutrophil pct 70.9 % MARCELINO Comment: Interpretive Data Percent cell count reference ranges are not reported, since discordance with absolute values may lead to misinterpretation of CBC data. Current Interpretive Data was last revised on 2017. Testing performed by: [address] [address] Imm gran pct 0.4 % MARCELINO Comment: Interpretive Data Percent cell count reference ranges are not reported, since discordance with absolute values may lead to misinterpretation of CBC data. Current Interpretive Data was last revised on 2017. Testing performed by: [address] [address] Lymphocyte pct 14.0 % MARCELINO Comment: Interpretive Data Percent cell count reference ranges are not reported, since discordance with absolute values may lead to misinterpretation of CBC data. Current Interpretive Data was last revised on 2017. Testing performed by: [address] [address] Monocyte pct 10.3 % MARCELINO Comment: Interpretive Data Percent cell count reference ranges are not reported, since discordance with absolute values may lead to misinterpretation of CBC data. Current Interpretive Data was last revised on 2017. Testing performed by: [address] [address] Eosinophil pct 4.0 % MARCELINO Comment: Interpretive Data Percent cell count reference ranges are not reported, since discordance with absolute values may lead to misinterpretation of CBC data. Current Interpretive Data was last revised on 2017. Testing performed by: [address] [address] Basophil pct 0.4 % MARCELINO Comment: Interpretive Data Percent cell count reference ranges are not reported, since discordance with absolute values may lead to misinterpretation of CBC data. Current Interpretive Data was last revised on 2017. Testing performed by: [address] [address] Blood 11/03/2024 2:21 AM ELECTRONICS LEAD 11/03/2024 3:01 AM ELECTRONICS LEAD us Ananya MEANS LAB BLOOD ORDERABLES Final Re sult MARCELINO [address] [facility] Department of Laboratories [place], [place] [id number] * (ABNORMAL) CBC with auto differential (11/03/2024 2:21 AM ELECTRONICS LEAD) Pathologist [facility] [place] WBC 7.0 3.8 - 9.9 K/cumm Comment:Testing performed by : [address] [address] Hgb 11.3(L) 11.9 - 15.5 g/dL MARCELINO Comment:Testing performed by : [address], [address] Hct 37.1 35.6 - 45.5 % MARCELINO Comment:Testing performed by : [address] [address] Plt 332 150 - 400 K/cumm MARCELINO Comment:Testing performed by : [address], [address] MPV 10.1 9.1 - 12.3 fL MARCELINO Comment:Testing performed by : [address], [address] RBC 4.27 3.90 - 5.20 M/cumm MARCELINO Comment:Testing performed by : [address], [address] MCV 86.9 81.3 - 96.4 fL MARCELINO Comment:Testing performed by : [address] [address] MCH 26.5(L) 27.1 - 33.3 pg MARCELINO Comment:Testing performed by : [address] [address] MCHC 30.5(L) 32.3 - 35.7 g/dL MARCELINO Comment:Testing performed by : [address], [address] RDW CV 17.1(H) 11.1 - 14.9 % MARCELINO Comment:Testing performed by : [address], [address] RDW SD 54.7(H) 35.7 - 48.1 fL MARCELINO Comment:Testing performed by : [address] [address] NRBC abs 0.00 0.00 - 0.01 K/cumm MARCELINO Comment:Testing performed by : [address], [address] Blood 11/03/2024 2:21 AM ELECTRONICS LEAD 11/03/2024 3:01 AM ELECTRONICS LEAD us Ananya MEANS LAB BLOOD ORDERABLES Final Re sult Performing Organization Address [facility] Co de Phone Number [facility] [address] [facility] [place] [address] * aPTT (11/03/2024 2:21 AM ELECTRONICS LEAD) aPTT 32 22 - 37 sec Comment: Interpretive data aPTT test has not been evaluated for monitoring heparin therapy. The anti-Xa is the preferred test. Current interpretive data was last revised on 2019. Testing performed by: [facility], [address] [place] [address]., [address] Blood 11/03/2024 2:21 AM ELECTRONICS LEAD 11/03/2024 2:57 AM ELECTRONICS LEAD Satinder Dougherty MD LAB BLOOD ORDERABLES Fi nal Result Performing Organization Address [facility] Co de Phone Number [facility] [address] [place] [address] * (ABNORMAL) Lipid panel (11/03/2024 2:21 AM ELECTRONICS LEAD) Cholesterol 148 30 - 199 mg/dL Comment: Interpretive Data Ages < or = 19 years Acceptable: <170 mg/dL Borderline high: 170-199 mg/dL High: >or= 200 mg/dL Ages > or = 20 years Desirable: <200 mg/dL Borderline high: 200-239 mg/dL High: >or= 240 mg/dL Literature References: 1. Expert Panel on Integrated Guidelines for Cardiovascular Health and Risk Reduction in Children and Adolescents. Pediatrics 2011;128:S213 2. NCEP Expert Panel. Circulation 2004;110:227 Current Interpretive Data was last revised on 2018. Testing performed by: [address] [address] Triglycerides 150(H) <=149 mg/dL MARCELINO Comment: Interpretive Data Ages < or = 9 years Acceptable: <75 mg/dL Borderline high: 75-99 mg/dL High: >or= 100 mg/dL Ages 10 to 20 years Acceptable: <90 mg/dL Borderline high: 90-129 mg/dL High: >or= 130 mg/dL Ages > or = 20 years Desirable: <150 mg/dL Borderline high: 150-199 mg/dL High: 200-499 mg/dL Very high: >or= 499 mg/dL Literature References: 1. Expert Panel on Integrated Guidelines for Cardiovascular Health and Risk Reduction in Children and Adolescents. Pediatrics 2011;128:S213 2. NCEP Expert Panel. Circulation 2004;110:227 Current Interpretive Data was last revised on 2018. Testing performed by: [address] [address] HDL 34(L) >=40 mg/dL MARCELINO Comment: Interpretive Data Ages < or = 19 years Acceptable: >45 mg/dL Borderline low: 40-45 mg/dL Low: <40 mg/dL Ages > or = 20 years Desirable: >or= 60 mg/dL Low: <40 mg/dL Literature References: 1. Expert Panel on Integrated Guidelines for Cardiovascular Health and Risk Reduction in Children and Adolescents. Pediatrics 2011;128:S213 2. NCEP Expert Panel. Circulation 2004;110:227 Current Interpretive Data was last revised on 2018. Testing performed by: [address] [address] LDL, calculated 88 <=129 mg/dL MARCELINO Comment: Interpretive Data Ages < or = 19 years Acceptable: <110 mg/dL Borderline high: 110-129 mg/dL High: >or= 130 mg/dL Ages > or = 20 years Optimal: <100 mg/dL Near optimal: 100-129 mg/dL Borderline high: 130-159 mg/dL High: >160 mg/dL Calculated using the Jessee LDL-C estimating equation. This equation was implemented on 2024. Prior to this date LDL-C was estimated using the Friedewald equation. Literature References: 1. Expert Panel on Integrated Guidelines for Cardiovascular Health and Risk Reduction in Children and Adolescents. Pediatrics 2011;128:S213 2. NCEP Expert Panel. Circulation 2004;110:227 3. Jessee Ling al. JAQUELINE Cardiol. 2020 December 28;5(5):540-548. doi: 10.1001/jamacardio.2020.0013 Current Interpretive Data was last revised on 2024. Testing performed by: [address] [address] Non-HDL Cholesterol 114 mg/dL MARCELINO HAYWOOD Comment: Interpretive Data Ages < or = 19 years Acceptable: <120 mg/dL Borderline high: 120-144 mg/dL High: >145 mg/dL Ages > or = 20 years When triglycerides are >200 mg/dL, Non-HDL cholesterol is a secondary target of therapy with treatment goals that are 30 mg/dL greater than the LDL cholesterol target. Literature References: 1. Expert Panel on Integrated Guidelines for Cardiovascular Health and Risk Reduction in Children and Adolescents. Pediatrics 2011;128:S213 2. NCEP Expert Panel. Circulation 2004;110:227 Current Interpretive Data was last revised on 2018. Testing performed by: [address] [address] Chol/HDL ratio 4 MARCELINO Comment:Testing performed by : [address] [address] Blood 11/03/2024 2:21 AM ELECTRONICS LEAD 11/03/2024 2:57 AM ELECTRONICS LEAD us Ananya MEANS LAB BLOOD ORDERABLES Final Re sult MARCELINO [address] [facility] Department [place] [address] * POCT glucose (11/03/2024 12:21 AM ELECTRONICS LEAD) [facility] Signature Glucose, POC 143 70 - 199 mg/dL Comment:Testing performed by : [address] [address] Glucose comment 1 Use This Result MARCELINO HAYWOOD Comment:Testing performed by : [address] [address] Glucose comment 2 RN/MD Notified MARCELINO HAYWODO Comment:Testing performed by : [address] [address] Blood 11/03/2024 12:2 1 AM ELECTRONICS LEAD 11/03/2024 12:21 AM ELECTRONICS LEAD us Satinder Dougherty MD LAB POCT ORDERABLES - D EVICE Final Result Performing Organization Address [facility] de Phone Number MARCELINO [address] [facility] [place] [address] * POCT glucose (11/02/2024 8:31 PM ELECTRONICS LEAD) Glucose, POC 156 70 - 199 mg/dL Comment:Testing performed by : [address] [address] Glucose comment 1 Use This Result MARCELINO HAYWOOD Comment:Testing performed by : [address] [address] Glucose comment 2 RN/MD Notified MARCELINO HAYWOOD Comment:Testing performed by : [address] [address] Blood 11/02/2024 8:31 PM ELECTRONICS LEAD 11/02/2024 8:31 PM ELECTRONICS LEAD Satinder Dougherty MD LAB POCT ORDERABLES - D EVICE Final Result Performing Organization Address [facility] de Phone Number MARCELINO [address] [facility] [place] [address] * CT Chest Abdomen Pelvis W Contrast (11/02/2024 8:01 PM ELECTRONICS LEAD) Anatomical Region Laterality Modality Body N/A Computed Tomogra phy 11/02/2024 10:4 0 PM ELECTRONICS LEAD Narrative 11/02/2024 10:59 PM ELECTRONICS LEAD EXAM DESCRIPTION: CT CHEST ABDOMEN PELVIS W CONTRAST REASON FOR STUDY: Sepsis Pt has hx sepsis from pneumonia and was discharged from the hospital 10/17 then went to rehab. Pt was in acute rehab and getting better and discharged Wednesday back home with daughter taking care of her. Pt has progressively declined since being at home. TECHNIQUE: CT scan of the chest, abdomen, and pelvis performed with intravenous and without oral contrast using helical scanning technique with dynamic intravenous contrast injection. Reconstructed coronal and sagittal MPR images reviewed. All images stored on PACS. Automated exposure control was used as a dose optimization technique for this examination. CONTRAST TYPE/DOSE: 100mL of IOVERSOL 350 MG IODINE/ML INTRAVENOUS SYRINGE injected via intravenous COMPARISON: Comparison is made to CT of the chest, abdomen and pelvis of October 10, 2024. REFERENCE: Per ACR white paper recommendations, unless otherwise specified no follow-up imaging is recommended for incidental renal and adrenal lesions per consensus recommendations based on imaging criteria. Further lab evaluation could be pursued based on clinical findings. FINDINGS: CHEST NECK BASE: Unremarkable. HARDWARE/LINES/TUBES: None. LYMPH NODES: No axillary, mediastinal or hilar lymphadenopathy is seen by CT size criteria. MEDIASTINUM/FAUSTINO: No masses seen. There is mild atherosclerosis of the aorta. There is moderate to severe coronary artery calcification. Heart size is normal. There is no significant pericardial effusion. PLEURA: No effusion. No pneumothorax. LUNGS: There is dependent atelectasis in the lung bases. Respiratory motion partially obscures fine pulmonary parenchymal detail. There are no masses or infiltrates. The central airways are normal. CHEST WALL/BREAST: Unremarkable. MUSCULOSKELETAL: There is diffuse degenerative change of the thoracic spine. There is no acute abnormality. OTHER: No other significant abnormality. ABDOMEN AND PELVIS LIVER: There is a stable hypodense lesion with a small amount of peripheral puddling contrast seen along falciform ligament consistent with a benign hemangioma, unchanged from previous. GALLBLADDER: Surgically absent. BILE DUCTS: There is mild intrahepatic and extrahepatic biliary ductal dilation, consistent with reservoir effect following cholecystectomy, not significantly changed from previous. PANCREAS: There is diffuse atrophy of the pancreas, unchanged. SPLEEN: Normal size. No focal lesions. ADRENALS: Normal. KIDNEYS/URINARY TRACT: No identified significant cystic or solid masses. No visualized stones. No hydronephrosis or hydroureter. Urinary bladder is unremarkable. VASCULATURE: There is moderate atherosclerosis of the aorta and its visceral and pelvic branches. GI: The stomach appears normal. There is no significant small bowel dilation or visible thickening. There is mildly increased stool through out the colon. The appendix is not definitively identified, however, there are no pericecal inflammatory changes seen to suggest appendicitis. PERITONEUM/MESENTERY: No ascites or free air. LYMPH NODES: There are no enlarged lymph nodes seen by CT size criteria. REPRODUCTIVE: The patient is status post hysterectomy. No adnexal pathology is seen. MUSCULOSKELETAL: Multilevel degenerative changes are present in the spine. No acute bony abnormalities are seen. There is a stable superior endplate L1 compression fracture, unchanged from previous. OTHER: No other abnormality. IMPRESSION: No acute abnormality of the chest, abdomen or pelvis. Atherosclerosis. Stable hepatic hemangioma. Status post cholecystectomy and hysterectomy. Mildly increased stool throughout the colon may indicate constipation. Stable superior endplate L1 compression fracture. THIS IS AN ELECTRONICALLY VERIFIED FINAL REPORT 11/02/2024 10:59 PM - Electronically signed by Iliana Hannah M.D. SN: SN Report ID: [id number] Reading Location: [id number] Procedure Note Iliana Hannah MD - 11/02/2024 EXAM DESCRIPTION: CT CHEST ABDOMEN PELVIS W CONTRAST REASON FOR STUDY: Sepsis Pt has hx sepsis from pneumonia and was discharged from the hospital 10/17then went to rehab. Pt was in acute rehab and getting better and dischargedMonday back home with daughter taking care of her. Pt has progressively declined since being at home. TECHNIQUE: CT scan of the chest, abdomen, and pelvis performed with intravenous and without oral contrast using helical scanning techniquewith dynamic intravenous contrast injection. Reconstructed coronal and sagittalMPR images reviewed. All images stored on PACS. Automated exposure control was used as a dose optimization technique for this examination. CONTRAST TYPE/DOSE: 100mL of IOVERSOL 350 MG IODINE/ML INTRAVENOUS SYRINGE injected via intravenous COMPARISON: Comparison is made to CT of the chest, abdomen and pelvis of October 10, 2024. REFERENCE: Per ACR white paper recommendations, unless otherwise specifiedno follow-up imaging is recommended for incidental renal and adrenal lesionsper consensus recommendations based on imaging criteria. Further labevaluation could be pursued based on clinical findings. FINDINGS: CHEST NECK BASE: Unremarkable. HARDWARE/LINES/TUBES: None. LYMPH NODES: No axillary, mediastinal or hilar lymphadenopathy is seen byCT size criteria. MEDIASTINUM/FAUSTINO: No masses seen. There is mild atherosclerosis of the aorta. There is moderate to severe coronary artery calcification.Heart size is normal. There is no significant pericardial effusion. PLEURA: No effusion. No pneumothorax. LUNGS: There is dependent atelectasis in the lung bases. Respiratorymotion partially obscures fine pulmonary parenchymal detail. There are no massesor infiltrates. The central airways are normal. CHEST WALL/BREAST: Unremarkable. MUSCULOSKELETAL: There is diffuse degenerative change of the thoracicspine. There is no acute abnormality. OTHER: No other significant abnormality. ABDOMEN AND PELVIS LIVER: There is a stable hypodense lesion with a small amount ofperipheral puddling contrast seen along falciform ligament consistent with a benign hemangioma, unchanged from previous. GALLBLADDER: Surgically absent. BILE DUCTS: There is mild intrahepatic and extrahepatic biliary ductal dilation, consistent with reservoir effect following cholecystectomy, not significantly changed from previous. PANCREAS: There is diffuse atrophy of the pancreas, unchanged. SPLEEN: Normal size. No focal lesions. ADRENALS: Normal. KIDNEYS/URINARY TRACT: No identified significant cystic or solid masses.No visualized stones. No hydronephrosis or hydroureter. Urinary bladder is unremarkable. VASCULATURE: There is moderate atherosclerosis of the aorta and itsvisceral and pelvic branches. GI: The stomach appears normal. There is no significant small bowel dilation or visible thickening. There is mildly increased stool throughout the colon. The appendix is not definitively identified, however, thereare no pericecal inflammatory changes seen to suggest appendicitis. PERITONEUM/MESENTERY: No ascites or free air. LYMPH NODES: There are no enlarged lymph nodes seen by CT size criteria. REPRODUCTIVE: The patient is status post hysterectomy. No adnexalpathology is seen. MUSCULOSKELETAL: Multilevel degenerative changes are present in thespine. No acute bony abnormalities are seen. There is a stable superior endplate L1 compression fracture, unchanged from previous. OTHER: No other abnormality. IMPRESSION: No acute abnormality of the chest, abdomen or pelvis. Atherosclerosis. Stable hepatic hemangioma. Status post cholecystectomy and hysterectomy. Mildly increased stool throughout the colon may indicate constipation. Stable superior endplate L1 compression fracture. THIS IS AN ELECTRONICALLY VERIFIED FINAL REPORT 11/02/2024 10:59 PM - Electronically signed by Iliana Hannah M.D. SN: Report ID: [id number] Reading Location: [place] [address] Ananya MEANS [facility] CT PROCEDURES Final Resul t * (ABNORMAL) Troponin T high-sensitivity 6-hour (11/02/2024 7:24 PM ELECTRONICS LEAD) Trop T hs 214(C) <=14 ng/L Comment: Critical Result called to and read back by [email or web address], DATE: 2024-11-02 19:53:11 BY: [id number] Interpretive Data For further hscTnT resources including the diagnostic algorithm and an aid in interpretation, copy and paste this link: https://nrl.testcatalog.org/show/hsTrop Current Interpretive Data last revised 2020. Testing performed by: [address] [address] Trop T hs pct delta 35(C) % MARCELINO Comment: Critical Result called to and read back by [email or web address], DATE: 2024-11-02 19:53:11 BY: [id number] Testing performed by: [address] [address] Trop T hs interp Significa nt(C) MARCELION HAYWOOD Comment: Critical Result called to and read back by [email or web address], DATE: 2024-11-02 19:53:11 BY: [email or web address] Testing performed by: [address] [address] Blood 11/02/2024 7:24 PM ELECTRONICS LEAD 11/02/2024 7:29 PM ELECTRONICS LEAD Narrative MARCELINO HAYWOOD - 11/02/2024 7:53 PM ELECTRONICS LEAD Critical result called to and read back by [email or web address] (_) on 11/02/2024 19:52:06 CST_ to [id number]_. Gee Yao DO LAB BLOOD ORDERABLES Final Res ult MARCELINO [address] [facility] Department [place] [address] * POCT glucose (11/02/2024 6:48 PM ELECTRONICS LEAD) [facility] Signature Glucose, POC 138 70 - 199 mg/dL Comment:Testing performed by : [address] [address] Blood 11/02/2024 6:48 PM ELECTRONICS LEAD 11/02/2024 6:48 PM ELECTRONICS LEAD Satinder Dougherty MD LAB POCT ORDERABLES - D EVICE Final Result Performing Organization Address City/[facility]/ZIP Co de Phone Number MARCELINO HAYWOOD [facility] [place] [address] * Blood culture Blood (11/02/2024 5:54 PM ELECTRONICS LEAD) Report Final Report: No growth Comment:Testing performed by : [facility], [address] [place]., [address] Blood 11/02/2024 5:54 PM ELECTRONICS LEAD 11/02/2024 10:13 PM ELECTRONICS LEAD Narrative MARCELINO - 11/07/2024 7:00 AM CDT From a different site than #1. Collection->Peripheral 1. Blood cultures are incubated for 4 days on a continuously monitored blood culture system. The first report of a negative culture is issued within 24 hours of receipt of the specimen in the laboratory. 2. Positive culture results are reported as soon as they are detected. 3. The most important factor for detection of microbes in the setting of bloodstream infection is the volume of blood submitted for culture. Failure to collect an optimal blood volume can result in false negative blood cultures. 4. For pediatric patients, the recommended blood volume to collect follows a weight based strategy. See the electronic test catalog for collection instructions. 5. For positive blood cultures, a rapid molecular test may be performed for organism identification using the rehana ePlex blood culture identification panel for gram positive (BCID-GP) and gram negative (BCID-GN) organisms. This nucleic acid amplification test detects microbial DNA in positive blood culture broth. This assay has been cleared by the [place] Food and Drug Administration and its performance characteristics have been verified by the [facility] Microbiology Laboratory. For questions about this culture, contact the Microbiology Laboratory at [phone]. Interpretive data was last revised on 24. us Ananya MEANS LAB MICROBIOLOGY - GENERAL OR DERABLES Final Result Performing Organization Address City/[facility]/ZIP Co de Phone Number MARCELINO HAYWOOD [address] [facility] [place] [address] * Blood culture Blood (11/02/2024 5:54 PM ELECTRONICS LEAD) Report Final Report: No growth Comment:Testing performed by : [facility], [address] [facility] [place] [address] Blood 11/02/2024 5:54 PM ELECTRONICS LEAD 11/02/2024 10:13 PM ELECTRONICS LEAD Elisha HAYWOOD - 11/07/2024 7:00 AM CDT Collection->Peripheral 1. Blood cultures are incubated for 4 days on a continuously monitored blood culture system. The first report of a negative culture is issued within 24 hours of receipt of the specimen in the laboratory. 2. Positive culture results are reported as soon as they are detected. 3. The most important factor for detection of microbes in the setting of bloodstream infection is the volume of blood submitted for culture. Failure to collect an optimal blood volume can result in false negative blood cultures. 4. For pediatric patients, the recommended blood volume to collect follows a weight based strategy. See the electronic test catalog for collection instructions. 5. For positive blood cultures, a rapid molecular test may be performed for organism identification using the rehana ePlex blood culture identification panel for gram positive (BCID-GP) and gram negative (BCID-GN) organisms. This nucleic acid amplification test detects microbial DNA in positive blood culture broth. This assay has been cleared by the [place] Food and Drug Administration and its performance characteristics have been verified by the [facility] Microbiology Laboratory. For questions about this culture, contact the Microbiology Laboratory at [phone]. Interpretive data was last revised on 24. Ananya MEANS LAB MICROBIOLOGY - GENERAL OR DERABLES Final Result MARCELINO HAYWOOD [address] [facility] Department [place] [address] * aPTT (11/02/2024 5:54 PM ELECTRONICS LEAD) aPTT 28 22 - 37 sec Comment: Interpretive data aPTT test has not been evaluated for monitoring heparin therapy. The anti-Xa is the preferred test. Current interpretive data was last revised on 2019. Testing performed by: [address] [address] Blood 11/02/2024 5:54 PM ELECTRONICS LEAD 11/02/2024 5:56 PM ELECTRONICS LEAD Narrative MARCELINO - 11/02/2024 6:08 PM ELECTRONICS LEAD Baseline prior to heparin initiation Ananya MEANS LAB BLOOD ORDERABLES Final Re sult Performing Organization Address [facility] Co de Phone Number [address] [place] [address] * (ABNORMAL) Protime-INR (11/02/2024 5:54 PM ELECTRONICS LEAD) PT 15.3(H) 12.0 - 14.6 sec Comment: Ref Range High Testing performed by: [address] [address] INR 1.2 0.9 - 1.2 MARCELINO Comment: Ref Range High Interpretive data Oral anticoagulant therapeutic ranges: Venous thromboembolism prophylaxis or treatment: 2.0-3.0 CARDIOLOGY Standard range: 2.0-3.0 High-intensity range: 2.5-3.5 Refer to indication-specific guidelines for appropriate target ranges for prosthetic heart valve replacement. Current interpretive data was last revised on 2019. Testing performed by: [address] [address] Blood 11/02/2024 5:54 PM ELECTRONICS LEAD 11/02/2024 5:56 PM ELECTRONICS LEAD Narrative MARCELINO - 11/02/2024 6:07 PM ELECTRONICS LEAD Baseline prior to heparin initiation Ananya MEANS LAB BLOOD ORDERABLES Final Re sult Performing Organization Address City/[facility] Co de Phone Number [address] [place] [address] * (ABNORMAL) CBC without differential (11/02/2024 5:54 PM ELECTRONICS LEAD) WBC 8.0 3.8 - 9.9 K/cumm Comment:Testing performed by : [address] [address] Hgb 11.4(L) 11.9 - 15.5 g/dL MARCELINO Comment:Testing performed by : [address] [address] Hct 37.2 35.6 - 45.5 % MARCELINO Comment:Testing performed by : [address] [address] Plt 376 150 - 400 K/cumm MARCELINO Comment:Testing performed by : [address] [address] MPV 10.1 9.1 - 12.3 fL MARCELINO Comment:Testing performed by : [address], [address] RBC 4.25 3.90 - 5.20 M/cumm MARCELINO Comment:Testing performed by : [address] [address] MCV 87.5 81.3 - 96.4 fL MARCELINO Comment:Testing performed by : [address] [address] MCH 26.8(L) 27.1 - 33.3 pg MARCELINO Comment:Testing performed by : [address] [address] MCHC 30.6(L) 32.3 - 35.7 g/dL MARCELINO Comment:Testing performed by : [address], [address] RDW CV 17.1(H) 11.1 - 14.9 % MARCELINO Comment:Testing performed by : [address], [address] RDW SD 54.8(H) 35.7 - 48.1 fL MARCELINO Comment:Testing performed by : [address] [address] NRBC abs 0.00 0.00 - 0.01 K/cumm MARCELINO Comment:Testing performed by : [address], [address] Blood 11/02/2024 5:54 PM ELECTRONICS LEAD 11/02/2024 5:56 PM ELECTRONICS LEAD Narrative MARCELINO - 11/02/2024 5:59 PM ELECTRONICS LEAD Baseline prior to heparin initiation Ananya MEANS LAB BLOOD ORDERABLES Final Re sult Performing Organization Address [facility] Co de Phone Number [address] [address] * Magnesium (11/02/2024 5:54 PM ELECTRONICS LEAD) Pathologist [facility] Magnesium 1.5 1.4 - 2.5 mg/dL Comment:Testing performed by : [address] [address] Blood 11/02/2024 5:54 PM ELECTRONICS LEAD 11/02/2024 5:56 PM ELECTRONICS LEAD Ananya MEANS LAB BLOOD ORDERABLES Final Re sult Performing Organization Address [facility] Co de Phone Number [address] [address] * (ABNORMAL) Troponin T high-sensitivity 4-hour (11/02/2024 4:15 PM ELECTRONICS LEAD) Pathologist [facility] [place] Trop T hs 204(C) <=14 ng/L Comment: Critical Result called to and read back by [email or web address], DATE: 2024-11-02 16:40:50 BY: Interpretive Data For further hscTnT resources including the diagnostic algorithm and an aid in interpretation, copy and paste this link: https://nrl.testcatalog.org/show/hsTrop Current Interpretive Data last revised 2020. Testing performed by: [address] [address] Trop T hs pct delta 29(C) % [facility] Comment: Critical Result called to and read back by [email or web address], DATE: 2024-11-02 16:40:50 BY: Testing performed by: [address] [address] Trop T hs interp Significa nt(C) MARCELINO Comment: Critical Result called to and read back by [email or web address], DATE: 2024-11-02 16:40:50 BY: Testing performed by: [address] [address] Blood 11/02/2024 4:15 PM ELECTRONICS LEAD 11/02/2024 4:17 PM ELECTRONICS LEAD Narrative MARCELINO - 11/02/2024 4:40 PM ELECTRONICS LEAD Critical result called to and read back by [email or web address] (_) on 11/02/2024 16:40:30 CST_ to [id number]_. Gee Yao DO LAB BLOOD ORDERABLES Final Res ult Performing Organization Address [facility] Co de Phone Number [address] [place] [address] * Sepsis Lactate w/ Reflex (11/02/2024 3:15 PM ELECTRONICS LEAD) [facility] Sepsis Lactate 1.1 0.7 - 2.0 mmol/L Comment:Testing performed by : [address] [address] Blood 11/02/2024 3:15 PM ELECTRONICS LEAD 11/02/2024 3:19 PM ELECTRONICS LEAD Gee Yao DO LAB BLOOD ORDERABLES Final Res ult Performing Organization Address [facility] Co de Phone Number [address] [place] [address] * (ABNORMAL) Troponin T high-sensitivity 2-hour (11/02/2024 3:02 PM ELECTRONICS LEAD) Pathologist [facility] Trop T hs 198(H) <=14 ng/L Comment: Interpretive Data For further hscTnT resources including the diagnostic algorithm and an aid in interpretation, copy and paste this link: https://nrl.testcatalog.org/show/hsTrop Current Interpretive Data last revised 2020. Testing performed by: [address] [address] Trop T hs pct delta 25(C) % MARCELINO Comment: Critical Result called to and read back by [email or web address], DATE: 2024-11-02 15:30:54 BY: Testing performed by: [facility], [address] [place] [address]., [address] Trop T hs interp Significa nt(C) MARCELINO Comment: Critical Result called to and read back by [email or web address], DATE: 2024-11-02 15:30:54 BY: Testing performed by: [facility], [address] [place] [address]., [address] Blood 11/02/2024 3:02 PM ELECTRONICS LEAD 11/02/2024 3:05 PM ELECTRONICS LEAD Narrative MARCELINO - 11/02/2024 3:31 PM ELECTRONICS LEAD Critical result called to and read back by _[email or web address] (_) on 11/02/2024 15:30:00 CST_ to [id number]_. Gee Yao DO LAB BLOOD ORDERABLES Final Res ult [facility] [address] [facility] Department [place] [address] * CT Head WO Contrast (11/02/2024 2:16 PM ELECTRONICS LEAD) Anatomical Region Laterality Modality Head and Neck N/A Computed Tomogra phy 11/02/2024 2:33 PM ELECTRONICS LEAD Narrative 11/02/2024 2:35 PM ELECTRONICS LEAD EXAM DESCRIPTION: CT HEAD WO CONTRAST REASON FOR STUDY: Mental status change, unknown cause Arrives via EMS from home due to family concern of patient not urinating or having BM for the last appox 32 hours. Patient recently hospitalized for sepsis due to PNA/KIMBERLY and AMS. AxO1 to self in triage. Lips are cracked/dry, skin turgor tenting. EMS further report that family state the patient has been more weak that usual, unable to ambulate. TECHNIQUE: Axial images acquired through the brain without intravenous contrast. Images stored on PACS. Automated exposure control was used as a dose optimization technique for this examination. COMPARISON: 10/10/2024 FINDINGS: BRAIN: No mass, hemorrhage, or recent infarct. Mild chronic white matter ischemia. Volume within normal limits for age. VASCULAR: No dense vessel or obvious aneurysm. EXTRA-AXIAL SPACES: No mass or fluid collection. ORBITS/GLOBES: Unremarkable. SOFT TISSUES: Unremarkable. BONES/SINUSES: No fracture or lesion. Paranasal sinuses and other skullbase airspaces are clear. IMPRESSION: No acute abnormality identified. THIS IS AN ELECTRONICALLY VERIFIED FINAL REPORT 11/02/2024 2:35 PM - Electronically signed by Juan Francisco Campbell M.D. AR: AR Report ID: [id number] Reading Location: [id number] Procedure Note Juan Francisco Campbell MD - 11/02/2024 EXAM DESCRIPTION: CT HEAD WO CONTRAST REASON FOR STUDY: Mental status change, unknown cause Arrives via EMS from home due to family concern of patient not urinatingor having BM for the last appox 32 hours. Patient recently hospitalized for sepsis due to PNA/KIMBERLY and AMS. AxO1 to self in triage. Lips arecracked/dry, skin turgor tenting. EMS further report that family state the patienthas been more weak that usual, unable to ambulate. TECHNIQUE: Axial images acquired through the brain without intravenous contrast. Images stored on PACS. Automated exposure control was used asa dose optimization technique for this examination. COMPARISON: 10/10/2024 FINDINGS: BRAIN: No mass, hemorrhage, or recent infarct. Mild chronic whitematter ischemia. Volume within normal limits for age. VASCULAR: No dense vessel or obvious aneurysm. EXTRA-AXIAL SPACES: No mass or fluid collection. ORBITS/GLOBES: Unremarkable. SOFT TISSUES: Unremarkable. BONES/SINUSES: No fracture or lesion. Paranasal sinuses and otherskullbase airspaces are clear. IMPRESSION: No acute abnormality identified. THIS IS AN ELECTRONICALLY VERIFIED FINAL REPORT 11/02/2024 2:35 PM - Electronically signed by Juan Francisco Campbell M.D. AR: VILMA Report ID: [id number] Reading Location: [id number] Gee Yao DO IMG CT PROCEDURES Final Result * Influenza A/B, RSV, and COVID-19 PCR Nasopharyngeal (11/02/2024 1:59 PM ELECTRONICS LEAD) COVID-19 RNA Negative Negative Comment:Testing performed by : [address] [address] Influenza A RNA Negative Negative [facility] Comment:Testing performed by : [address] [address] Influenza B RNA Negative Negative [facility] Comment:Testing performed by : [address] [address] RSV RNA Negative Negative [facility] Comment: Interpretive data: Testing performed by [facility]. This test is performed using the [employer] Xpert Xpress CoV-2/Flu/RSV plus assay. This is a multiplex, real-time reverse transcriptase PCR assay intended for the qualitative detection of nucleic acid from SARS-CoV-2, influenza A, influenza B, and respiratory syncytial virus. This assay has been cleared by the [place] Food and Drug administration. The performance characteristics have been verified by the [facility]. Results must be considered in the clinical context, and a negative result does not rule out infection. Interpretive Data last revised 2023 Testing performed by: [address] [address] Nasopharyngeal 11/02/2024 1: 59 PM ELECTRONICS LEAD 11/02/2024 2:08 PM ELECTRONICS LEAD Narrative MARCELINO - 11/02/2024 2:48 PM ELECTRONICS LEAD Is the Patient experiencing symptoms consistent with COVID?->Yes Gee Yao DO LAB MICROBIOLOGY - GENERAL ORD ERABLES Final Result MARCELINO HAYWOOD [address] [facility] Department [place] [address] * XR Chest 1 View (11/02/2024 1:38 PM ELECTRONICS LEAD) Anatomical Region Laterality Modality Body, Chest N/A Computed Radiogr aphy 11/02/2024 2:0 5 PM ELECTRONICS LEAD Narrative 11/02/2024 2:06 PM ELECTRONICS LEAD EXAM DESCRIPTION: XR CHEST 1 VIEW REASON FOR STUDY: general weakness Arrives via EMS from home due to family concern of patient not urinating or having BM for the last appox 32 hours. Patient recently hospitalized for sepsis due to TECHNIQUE: Single frontal radiographic view(s) of the chest. COMPARISON: 10/10/2024 FINDINGS: There is cardiomegaly. The pulmonary vasculature and mediastinum are grossly stable. There is no definite evidence of a pneumothorax. There is no definite evidence of a focal consolidation or pleural effusion. The osseous structures are acutely grossly stable. IMPRESSION: Cardiomegaly without definite evidence of acute cardiopulmonary process. THIS IS AN ELECTRONICALLY VERIFIED FINAL REPORT 11/02/2024 2:06 PM - Electronically signed by Layla Ballard D.O. PS: PS Report ID: [id number] Reading Location: [id number] Procedure Note Layla Ballard DO - 11/02/2024 EXAM DESCRIPTION: XR CHEST 1 VIEW REASON FOR STUDY: general weakness Arrives via EMS from home due to family concern of patient not urinatingor having BM for the last appox 32 hours. Patient recently hospitalized for sepsis due to TECHNIQUE: Single frontal radiographic view(s) of the chest. COMPARISON: 10/10/2024 FINDINGS: There is cardiomegaly. The pulmonary vasculature andmediastinum are grossly stable. There is no definite evidence of a pneumothorax.There is no definite evidence of a focal consolidation or pleural effusion. The osseous structures are acutely grossly stable. IMPRESSION: Cardiomegaly without definite evidence of acute cardiopulmonaryprocess. THIS IS AN ELECTRONICALLY VERIFIED FINAL REPORT 11/02/2024 2:06 PM - Electronically signed by Layla Ballard D.O. PS: PS Report ID: [id number] Reading Location: [id number] Gee Slowik DO IMG XR PROCEDURES Final Result * ECG 12 lead (11/02/2024 1:19 PM ELECTRONICS LEAD) Ventricular Rate EKG/Min 95 BPM [facility] Atrial Rate 95 BPM [facility] NV-Interval (MSEC) 162 ms [facility] QRS-Interval (MSEC) 98 ms [facility] QT-Interval (MSEC) 432 ms [facility] QTc 542 ms [facility] P [place] 17 degrees [facility] R [place] -19 degrees [facility] T [place] 106 degrees [facility] Diagnosis Normal sinus rhythm Minimal voltage criteria for LVH, may be normal variant 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 ([id number]) on 11/02/2024 5:01:19 PM [facility] 11/02/2024 1:19 PM ELECTRONICS LEAD 11/02/2024 5:01 PM ELECTRONICS LEAD Gee Yao DO ECG ORDERABLES Final Result [facility] * (ABNORMAL) Urinalysis reflex to microscopic and culture Urine (11/02/2024 12:51 PM ELECTRONICS LEAD) Color, ur Yellow Yellow Comment:Testing performed by : [facility], [address] [place] [address]., [address] Clarity, ur Clear Clear MARCELINO Comment:Testing performed by : [address] [address] Specific gravity, ur 1.024 1.003 - 1.030 MARCELINO Comment:Testing performed by : [address] [address] pH, urine 5.5 MARCELINO Comment: Interpretive Data U rine pH is affected by diet, medications, systemic acid-base disturbances, and renal tubular function. pH may affect urinary stone formation. For example, urine pH below 6.0 may help reduce the tendency for calcium phosphate stones and pH greater than 6.0 may reduce the tendency for uric acid stone formation. Source: spotflux Current Interpretive Data was last revised on 2017 Testing performed by: [facility], [address] [place] [address], [place]., [address] Protein, ur ql 1+(A) Negative MARCELINO Comment:Testing performed by : [address] [address] Glucose, ur ql Negative Negative MARCELINO Comment:Testing performed by : [address], [place]., [address] Ketones, ur Trace(A) Negative MARCELINO Comment:Testing performed by : [address], [place]., [address] Bilirubin, ur Negative Negative MARCELINO Comment:Testing performed by : [address], [place]., [address] Blood, ur 3+(A) Negative MARCELINO Comment:Testing performed by : [address], [place]., [address] Urobilinogen, ur <2.0 <2.0 mg/dL MARCELINO Comment:Testing performed by : [address], [place]., [address] Nitrite, ur Positive(A) Negative MARCELINO Comment:Testing performed by : [address] [address] Leukocyte esterase, ur Negative Negative MARCELINO Comment:Testing performed by : [address], [place]., [address] UA reflex comment Reflex to microscopic UA will be performed. MARCELINO Comment:Testing performed by : [address] [address] Urine 11/02/2024 12:5 1 PM ELECTRONICS LEAD 11/02/2024 12:59 PM ELECTRONICS LEAD us Gee Yao DO LAB MICROBIOLOGY - GENERAL ORD ERABLES Final Result MARCELINO HAYWOOD [address] [facility] Department of Laboratories [place], [place] [id number] * (ABNORMAL) Urinalysis, microscopic only (11/02/2024 12:51 PM ELECTRONICS LEAD) WBC, ur 0-5 0 - 5 /HPF Comment:Testing performed by : [facility], [address] [place] [address], [place]., [address] RBC, ur 6-10(A) 0 - 2 /HPF MARCELINO Comment:Testing performed by : [address], [place]., [address] Epithelial cells, squamous, ur >50(A) 0 - 5 /HPF MARCELINO Comment:Testing performed by : [address], [place]., [address] Bacteria, ur 3+(A) MARCELINO Comment:Testing performed by : [facility], [address] [place] [address], [place]., [address] Mucous, ur Present(A) MARCELINO Comment:Testing performed by : [address], [place]., [address] Culture Reflex Comment Reflex conditions for urine culture (WBC >10) not met. MARCELINO Comment:Testing performed by : [address], [place]., [address] Urine 11/02/2024 12:5 1 PM ELECTRONICS LEAD 11/02/2024 12:59 PM ELECTRONICS LEAD us Gee Yao DO LAB URINE ORDERABLES Final Res ult MARCELINO [address] [facility] Department [place] [address] * Urine culture Urine, bladder (11/02/2024 12:51 PM ELECTRONICS LEAD) Report Final Report: Less than 100,000 colonies/mL (clinically insignificant growth based on current clinical standards) Comment:Testing performed by : [facility], [address] [facility], [place]., [address] Organism (CLINICALLY INSIGNIFICANT GROWTH MARCELINO Urine, bladder 11/02/2024 12 :51 PM ELECTRONICS LEAD 11/03/2024 4:59 PM ELECTRONICS LEAD Narrative MARCELINO - 11/04/2024 5:58 PM ELECTRONICS LEAD Indications for Culture:->Recent positive UA Testing performed by [facility] ([phone]) Satinder Dougherty MD LAB MICROBIOLOGY - GENE RAL ORDERABLES Final Result Performing Organization Address [facility] Co de Phone Number MARCELINO [address] [place] [address] * (ABNORMAL) Troponin T high-sensitivity series (baseline, 2hr, 4hr, 6hr) (11/02/2024 12:39 PM ELECTRONICS LEAD) Trop T hs 158(H) <=14 ng/L Comment: Interpretive Data For further hscTnT resources including the diagnostic algorithm and an aid in interpretation, copy and paste this link: [email or web address]/show/[email or web address] Current Interpretive Data last revised 2020. Testing performed by: [address] [address] Blood 11/02/2024 12:3 9 PM ELECTRONICS LEAD 11/02/2024 12:59 PM ELECTRONICS LEAD Gee Yao DO LAB BLOOD ORDERABLES Final Res ult Performing Organization Address [facility] de Phone Number MARCELINO [address] [place] [address] * Troponin T high-sensitivity (11/02/2024 12:39 PM ELECTRONICS LEAD) Trop T hs See Comment <=14 ng/L Comment: Improper test ordered. See result for BERNARD Baseline. Interpretive Data For further hscTnT resources including the diagnostic algorithm and an aid in interpretation, copy and paste this link: [email or web address]/show/[email or web address] Current Interpretive Data last revised 2020. Testing performed by: [address] [address] Blood 11/02/2024 12:3 9 PM ELECTRONICS LEAD 11/02/2024 12:59 PM ELECTRONICS LEAD Gee Yao A.P Avanashiappa [employer]k LAB BLOOD ORDERABLES Edited Re sult - Final Performing Organization Address [facility] Co de Phone Number MARCELINO [address] [facility] [place] [address] * (ABNORMAL) Sepsis Lactate w/ Reflex (11/02/2024 12:39 PM ELECTRONICS LEAD) Sepsis Lactate 2.1(H) 0.7 - 2.0 mmol/L Comment:Testing performed by : [address] [address] Blood 11/02/2024 12:3 9 PM ELECTRONICS LEAD 11/02/2024 12:59 PM ELECTRONICS LEAD us Gee Yao DO LAB BLOOD ORDERABLES Final Res ult Performing Organization Address [facility] Co de Phone Number MARCELINO [address] [place] [address] * (ABNORMAL) eGFR (11/02/2024 12:39 PM ELECTRONICS LEAD) Pathologist [facility] [place] eGFR 50(L) >=60 mL/min/1. 73 m2 Comment: Interpretive Data Reference Interval Normal >/= 90 mL/min/1.73m2 Mildly decreased* 60 - 89 mL/min/1.73m2 Mildly to moderately decreased 45 - 59 mL/min/1.73m2 Moderately to severely decreased 30 - 44 mL/min/1.73m2 Severely decreased 15 - 29 mL/min/1.73m2 Kidney Failure < 15 mL/min/1.73m2 *Relative to young adult level Estimated glomerular filtration rate is determined by the 2020 CKD-EPI equation recommended by the National Kidney Foundation (A Unifying Approach to GFR Estimation: Recommendations of the NKF-ASK Task Force on Reassessing the Inclusion of Race in Diagnosing Kidney Disease, JASN 2020). The CKD-EPI equation should not be used for patients with unstable renal function and has not been validated in children and those over 70. Current interpretive data was last reviewed 2021. Testing performed by: [address] [address] Blood 11/02/2024 12:3 9 PM ELECTRONICS LEAD 11/02/2024 12:59 PM ELECTRONICS LEAD us Gee Yao DO LAB BLOOD ORDERABLES Final Res ult MARCELINO [address] [facility] Department [place] [address] * (ABNORMAL) Differential, auto (11/02/2024 12:39 PM ELECTRONICS LEAD) Neutrophil abs 6.7(H) 1.5 - 6.5 K/cumm Comment:Testing performed by : [address] [address] Imm gran abs 0.1 0.0 - 0.1 K/cumm MARCELINO Comment:Testing performed by : [address] [address] Lymphocyte abs 2.0 0.8 - 3.3 K/cumm MARCELINO Comment:Testing performed by : [address] [address] Monocyte abs 1.0(H) 0.2 - 0.8 K/cumm MARCELINO Comment:Testing performed by : [address] [address] Eosinophil abs 0.3 0.0 - 0.5 K/cumm MARCELINO Comment:Testing performed by : [address] [address] Basophil abs 0.1 0.0 - 0.1 K/cumm MARCELINO Comment:Testing performed by : [address] [address] Neutrophil pct 66.5 % MARCELINO Comment: Interpretive Data Percent cell count reference ranges are not reported, since discordance with absolute values may lead to misinterpretation of CBC data. Current Interpretive Data was last revised on 2017. Testing performed by: [address] [address] Imm gran pct 0.9 % MARCELINO Comment: Interpretive Data Percent cell count reference ranges are not reported, since discordance with absolute values may lead to misinterpretation of CBC data. Current Interpretive Data was last revised on 2017. Testing performed by: [address] [address] Lymphocyte pct 19.7 % [facility] Comment: Interpretive Data Percent cell count reference ranges are not reported, since discordance with absolute values may lead to misinterpretation of CBC data. Current Interpretive Data was last revised on 2017. Testing performed by: [address] [address] Monocyte pct 9.5 % [facility] Comment: Interpretive Data Percent cell count reference ranges are not reported, since discordance with absolute values may lead to misinterpretation of CBC data. Current Interpretive Data was last revised on 2017. Testing performed by: [address] [address] Eosinophil pct 2.9 % [facility] Comment: Interpretive Data Percent cell count reference ranges are not reported, since discordance with absolute values may lead to misinterpretation of CBC data. Current Interpretive Data was last revised on 2017. Testing performed by: [address] [address] Basophil pct 0.5 % [facility] Comment: Interpretive Data Percent cell count reference ranges are not reported, since discordance with absolute values may lead to misinterpretation of CBC data. Current Interpretive Data was last revised on 2017. Testing performed by: [address] [address] Blood 11/02/2024 12:3 9 PM ELECTRONICS LEAD 11/02/2024 12:59 PM ELECTRONICS LEAD us Gee Yao DO LAB BLOOD ORDERABLES Final Res ult MARCELINO [address] [facility] Department [place] [address] * (ABNORMAL) CBC with auto differential (11/02/2024 12:39 PM ELECTRONICS LEAD) WBC 10.1(H) 3.8 - 9.9 K/cumm Comment:Testing performed by : [address] [address] Hgb 12.9 11.9 - 15.5 g/dL MARCELINO Comment:Testing performed by : [address], [address] Hct 42.9 35.6 - 45.5 % MARCELINO Comment:Testing performed by : [address] [address] Plt 437(H) 150 - 400 K/cumm MARCELINO Comment:Testing performed by : [address] [address] MPV 10.1 9.1 - 12.3 fL MARCELINO Comment:Testing performed by : [address] [address] RBC 4.87 3.90 - 5.20 M/cumm MARCELINO Comment:Testing performed by : [address] [address] MCV 88.1 81.3 - 96.4 fL MARCELINO Comment:Testing performed by : [address] [address] MCH 26.5(L) 27.1 - 33.3 pg MARCELINO Comment:Testing performed by : [address] [address] MCHC 30.1(L) 32.3 - 35.7 g/dL MARCELINO Comment:Testing performed by : [address] [address] RDW CV 17.3(H) 11.1 - 14.9 % MARCELINO Comment:Testing performed by : [address], [address] RDW SD 56.2(H) 35.7 - 48.1 fL MARCELINO Comment:Testing performed by : [address] [address] NRBC abs 0.00 0.00 - 0.01 K/cumm MARCELINO Comment:Testing performed by : [address] [address] Blood 11/02/2024 12:3 9 PM ELECTRONICS LEAD 11/02/2024 12:59 PM ELECTRONICS LEAD Gee Yao A.P [employer]vanash[employer] Silk LAB BLOOD ORDERABLES Final Res ult Performing Organization Address [facility] Co de Phone Number [address] [address] * Erythrocyte sedimentation rate (11/02/2024 12:39 PM ELECTRONICS LEAD) Erythrocyte sedimentation rate 30 1 - 30 mm/hr Comment:Testing performed by : [address] [address] Blood 11/02/2024 12:3 9 PM ELECTRONICS LEAD 11/02/2024 12:59 PM ELECTRONICS LEAD Gee Yao LAB BLOOD ORDERABLES Final Res ult Performing Organization Address [facility] Co de Phone Number [address] [address] * (ABNORMAL) CRP (acute phase) (11/02/2024 12:39 PM ELECTRONICS LEAD) Pathologist [facility] [place] CRP 19.6(H) <=10.0 mg/L Comment:Testing performed by : [address] [address] Blood 11/02/2024 12:3 9 PM ELECTRONICS LEAD 11/02/2024 12:59 PM ELECTRONICS LEAD Gee Yao LAB BLOOD ORDERABLES Final Res ult Performing Organization Address [facility] Co de Phone Number [address] [address] * (ABNORMAL) Comprehensive metabolic panel (11/02/2024 12:39 PM ELECTRONICS LEAD) Pathologist [facility] [place] Sodium 141 135 - 145 mmol/L Comment:Testing performed by : [address] [address] Potassium, pl 3.4 3.3 - 4.9 mmol/L MARCELINO Comment:Testing performed by : [address] [address] Chloride 99 97 - 110 mmol/L MARCELINO Comment:Testing performed by : [address] [address] CO2 30 22 - 32 mmol/L MARCELINO Comment:Testing performed by : [address], [place]., [address] Anion gap 12 2 - 15 mmol/L MARCELINO Comment:Testing performed by : [address], [place]., [address] BUN 18 6 - 25 mg/dL MARCELINO Comment:Testing performed by : [address], [place]., [address] Creatinine 1.10 0.60 - 1.10 mg/dL MARCELINO Comment:Testing performed by : [address], [place]., [address] Glucose 157 70 - 199 mg/dL MARCELINO Comment: Interpretive Data Fasting glucose >/= 126 mg/dl is diagnostic for diabetes. Fasting is defined as no caloric intake for at least 8 hours. Fasting glucose between 100 mg/dl to 125 mg/dl is diagnostic of prediabetes. In a patient with classic symptoms of hyperglycemia or hyperglycemic crisis, a random glucose >/= 200 mg/dl is diagnostic for diabetes. In the absence of unequivocal hyperglycemia, results should be confirmed by repeat testing. The classification and Diagnosis of Diabetes Diabetes Care 202; 46: S19-S40. Current interpretive data was last revised 2022. Testing performed by: [address] [address] Calcium 10.6(H) 8.5 - 10.3 mg/dL MARCELINO Comment:Testing performed by : [address] [address] Bilirubin, total 0.3 0.1 - 1.2 mg/dL MARCELINO Comment:Testing performed by : [address] [address] Protein, pl 6.7 6.5 - 8.5 g/dL MARCELINO Comment:Testing performed by : [address] [address] Albumin 3.7 3.5 - 5.0 g/dL MARCELINO Comment:Testing performed by : [address] [address] Alk phos 107 40 - 130 Units/L MARCELINO Comment:Testing performed by : [address] [address] ALT 15 7 - 45 Units/L MARCELINO Comment:Testing performed by : [address] [address] AST 26 10 - 45 Units/L MARCELINO Comment:Testing performed by : [address] [address] Blood 11/02/2024 12:3 9 PM ELECTRONICS LEAD 11/02/2024 12:59 PM ELECTRONICS LEAD Gee Yao DO LAB BLOOD ORDERABLES Final Res ult MARCELINO [facility] Department [place] [address] * COVID-19 Coronavirus RNA Nasopharyngeal (10/17/2024 10:20 AM ELECTRONICS LEAD) COVID-19 RNA Negative Negative Comment:Testing performed by : [address] [address] Nasopharyngeal 10/17/2024 10 :20 AM ELECTRONICS LEAD 10/17/2024 10:49 AM ELECTRONICS LEAD Narrative MARCELINO - 10/17/2024 11:24 AM ELECTRONICS LEAD Is the patient experiencing any symptoms consistent with COVID (eg. Fever, cough, shortness of breath)?->No What is the reason for testing?->Screening for post-acute care placement Interpretive data Testing performed by [facility]. This test is performed using the [employer] Xpert Xpress CoV-2 plus assay. This is a real-time RT-PCR test intended for the qualitative detection of nucleic acid from the SARS-CoV-2. This assay has been cleared by the [place] Food and Drug administration. The performance characteristics have been verified by the [facility]. Results must be considered in the clinical context, and a negative result does not rule out infection. Interpretive data last revised 2024. Nahid Kim MD LAB MICROBIOLOGY - GENERA L ORDERABLES Final Result Performing Organization Address City/[facility]/ZIP Co de Phone Number [address] [address] * POCT glucose (10/17/2024 8:41 AM ELECTRONICS LEAD) Glucose, POC 123 70 - 199 mg/dL Comment:Testing performed by : [address] [address] Blood 10/17/2024 8:41 AM ELECTRONICS LEAD 10/17/2024 8:41 AM ELECTRONICS LEAD Nahid Kim MD LAB POCT ORDERABLES - DEV ICE Final Result Performing Organization Address [facility] Co de Phone Number [address] [address] * POCT glucose (10/16/2024 8:09 PM ELECTRONICS LEAD) Glucose, POC 145 70 - 199 mg/dL Comment:Testing performed by : [address] [address] Blood 10/16/2024 8:09 PM ELECTRONICS LEAD 10/16/2024 8:09 PM ELECTRONICS LEAD Conor Ventura MD LAB POCT ORDERABLE S - DEVICE Final Result Performing Organization Address [facility]/ZIP Co de Phone Number [address] [address] * POCT glucose (10/16/2024 4:18 PM ELECTRONICS LEAD) Glucose, POC 126 70 - 199 mg/dL Comment:Testing performed by : [address] [address] Blood 10/16/2024 4:18 PM ELECTRONICS LEAD 10/16/2024 4:18 PM ELECTRONICS LEAD Conor Ventura MD LAB POCT ORDERABLE S - DEVICE Final Result Performing Organization Address City/[facility] Co de Phone Number MARCELINO [address] [employer] [place] [address] * POCT glucose (10/16/2024 11:37 AM ELECTRONICS LEAD) Glucose, POC 132 70 - 199 mg/dL Comment:Testing performed by : [address] [address] Blood 10/16/2024 11:3 7 AM ELECTRONICS LEAD 10/16/2024 11:37 AM ELECTRONICS LEAD Conor Ventura MD LAB POCT ORDERABLE S - DEVICE Final Result Performing Organization Address [facility] de Phone Number MARCELINO [address] [address] * POCT glucose (10/16/2024 8:58 AM ELECTRONICS LEAD) Glucose, POC 140 70 - 199 mg/dL Comment:Testing performed by : [address] [address] Glucose comment 1 Use This Result MARCELINO Comment:Testing performed by : [address] [address] Blood 10/16/2024 8:58 AM ELECTRONICS LEAD 10/16/2024 8:58 AM ELECTRONICS LEAD Conor Ventura MD LAB POCT ORDERABLE S - DEVICE Final Result Performing Organization Address City/[facility] Co de Phone Number MARCELINO [address] [address] * POCT glucose (10/15/2024 9:04 PM ELECTRONICS LEAD) Glucose, POC 133 70 - 199 mg/dL Comment:Testing performed by : [address] [address] Glucose comment 1 Use This Result MARCELINO Comment:Testing performed by : [address] [address] Glucose comment 2 RN/MD Notified MARCELINO Comment:Testing performed by : [address] [address] Blood 10/15/2024 9:04 PM ELECTRONICS LEAD 10/15/2024 9:04 PM ELECTRONICS LEAD Conor Ventura MD LAB POCT ORDERABLE S - DEVICE Final Result Performing Organization Address City/[facility] Co de Phone Number MARCELINO [facility] [place] [address] * POCT glucose (10/15/2024 4:04 PM ELECTRONICS LEAD) Glucose, POC 158 70 - 199 mg/dL Comment:Testing performed by : [address] [address] Glucose comment 1 Use This Result MARCELINO Comment:Testing performed by : [address] [address] Glucose comment 2 RN/MD Notified MARCELINO Comment:Testing performed by : [address] [address] Blood 10/15/2024 4:04 PM ELECTRONICS LEAD 10/15/2024 4:04 PM ELECTRONICS LEAD Conor Ventura MD LAB POCT ORDERABLE S - DEVICE Final Result Performing Organization Address City/[facility]/ZIP Co de Phone Number [place] [phone] [facility] [place] [address] * POCT glucose (10/15/2024 1:17 PM ELECTRONICS LEAD) Glucose, POC 161 70 - 199 mg/dL Comment:Testing performed by : [address] [address] Glucose comment 1 Use This Result [facility] Comment:Testing performed by : [address] [address] Glucose comment 2 RN/MD Notified MARCELINO Comment:Testing performed by : [address] [address] Blood 10/15/2024 1:17 PM ELECTRONICS LEAD 10/15/2024 1:17 PM ELECTRONICS LEAD Conor Ventura MD LAB POCT ORDERABLE S - DEVICE Final Result Performing Organization Address [facility] de Phone Number [place] [phone] [facility] [place] [address] * POCT glucose (10/15/2024 9:12 AM ELECTRONICS LEAD) [facility] Glucose, POC 124 70 - 199 mg/dL Comment:Testing performed by : [address] [address] Glucose comment 1 Use This Result [facility] Comment:Testing performed by : [address] [address] Glucose comment 2 RN/MD Notified MARCELINO Comment:Testing performed by : [address] [address] Blood 10/15/2024 9:12 AM ELECTRONICS LEAD 10/15/2024 9:12 AM ELECTRONICS LEAD Result [facility] Conor Ventura MD LAB POCT ORDERABLE S - DEVICE Final Result Performing Organization Address [facility] Co de Phone Number [facility] [address] [facility] [place] [address] * eGFR (10/15/2024 5:04 AM ELECTRONICS LEAD) [facility] eGFR 73 >=60 mL/min/1. 73 m2 Comment: Interpretive Data Reference Interval Normal >/= 90 mL/min/1.73m2 Mildly decreased* 60 - 89 mL/min/1.73m2 Mildly to moderately decreased 45 - 59 mL/min/1.73m2 Moderately to severely decreased 30 - 44 mL/min/1.73m2 Severely decreased 15 - 29 mL/min/1.73m2 Kidney Failure < 15 mL/min/1.73m2 *Relative to young adult level Estimated glomerular filtration rate is determined by the 2020 CKD-EPI equation recommended by the National Kidney Foundation (A Unifying Approach to GFR Estimation: Recommendations of the NKF-ASK Task Force on Reassessing the Inclusion of Race in Diagnosing Kidney Disease, JASN 2020). The CKD-EPI equation should not be used for patients with unstable renal function and has not been validated in children and those over 70. Current interpretive data was last reviewed 2021. Testing performed by: [address] [address] Blood 10/15/2024 5:04 AM ELECTRONICS LEAD 10/15/2024 5:45 AM ELECTRONICS LEAD Dl Finney MD LAB BLOOD ORDERABLES Final Result MARCELINO [address] [facility] Department [place] [address] * Differential, auto (10/15/2024 5:04 AM ELECTRONICS LEAD) Neutrophil abs 3.5 1.5 - 6.5 K/cumm Comment:Testing performed by : [address] [address] Imm gran abs 0.0 0.0 - 0.1 K/cumm MARCELINO Comment:Testing performed by : [address] [address] Lymphocyte abs 1.3 0.8 - 3.3 K/cumm MARCELINO Comment:Testing performed by : [address] [address] Monocyte abs 0.7 0.2 - 0.8 K/cumm MARCELINO Comment:Testing performed by : [address] [address] Eosinophil abs 0.2 0.0 - 0.5 K/cumm MARCELINO Comment:Testing performed by : [address] [address] Basophil abs 0.0 0.0 - 0.1 K/cumm MARCELINO Comment:Testing performed by : [address] [address] Neutrophil pct 61.5 % [place] Comment: Interpretive Data Percent cell count reference ranges are not reported, since discordance with absolute values may lead to misinterpretation of CBC data. Current Interpretive Data was last revised on 2017. Testing performed by: [address] [address] Imm gran pct 0.5 % MARCELINO Comment: Interpretive Data Percent cell count reference ranges are not reported, since discordance with absolute values may lead to misinterpretation of CBC data. Current Interpretive Data was last revised on 2017. Testing performed by: [address] [address] Lymphocyte pct 22.1 % [facility] Comment: Interpretive Data Percent cell count reference ranges are not reported, since discordance with absolute values may lead to misinterpretation of CBC data. Current Interpretive Data was last revised on 2017. Testing performed by: [address] [address] Monocyte pct 11.5 % MARCELINO Comment: Interpretive Data Percent cell count reference ranges are not reported, since discordance with absolute values may lead to misinterpretation of CBC data. Current Interpretive Data was last revised on 2017. Testing performed by: [address] [address] Eosinophil pct 3.7 % MARCELINO Comment: Interpretive Data Percent cell count reference ranges are not reported, since discordance with absolute values may lead to misinterpretation of CBC data. Current Interpretive Data was last revised on 2017. Testing performed by: [address] [address] Basophil pct 0.7 % [facility] Comment: Interpretive Data Percent cell count reference ranges are not reported, since discordance with absolute values may lead to misinterpretation of CBC data. Current Interpretive Data was last revised on 2017. Testing performed by: [address] [address] Blood 10/15/2024 5:04 AM ELECTRONICS LEAD 10/15/2024 5:46 AM ELECTRONICS LEAD us Dl Finney MD LAB BLOOD ORDERABLES Final Result MARCELINO [address] [facility] Department [place] [address] * (ABNORMAL) CBC with auto differential (10/15/2024 5:04 AM ELECTRONICS LEAD) WBC 5.7 3.8 - 9.9 K/cumm Comment:Testing performed by : [address] [address] Hgb 10.6(L) 11.9 - 15.5 g/dL MARCELINO [place] Comment:Testing performed by : [address] [address] Hct 35.6 35.6 - 45.5 % MARCELINO HAYWOOD Comment:Testing performed by : [address] [address] Plt 315 150 - 400 K/cumm MARCELINO Comment:Testing performed by : [address] [address] MPV 9.5 9.1 - 12.3 fL MARCELINO [place]AY[place]OD Comment:Testing performed by : [address] [address] RBC 4.05 3.90 - 5.20 M/cumm MARCELINO HAYWOOD Comment:Testing performed by : [address] [address] MCV 87.9 81.3 - 96.4 fL MARCELINO HAY[place]OD Comment:Testing performed by : [address] [address] MCH 26.2(L) 27.1 - 33.3 pg MARCELINO HAYWOOD Comment:Testing performed by : [address] [address] MCHC 29.8(L) 32.3 - 35.7 g/dL MARCELINO HAYWOOD Comment:Testing performed by : [facility], [address] [place] [address]., [address] RDW CV 17.2(H) 11.1 - 14.9 % MARCELINO HAYWOOD Comment:Testing performed by : [address] [address] RDW SD 55.3(H) 35.7 - 48.1 fL MARCELINO HAY[place]OD Comment:Testing performed by : [address] [address] NRBC abs 0.00 0.00 - 0.01 K/cumm MARCELINO HAYWOOD Comment:Testing performed by : [address] [address] Blood 10/15/2024 5:04 AM ELECTRONICS LEAD 10/15/2024 5:46 AM ELECTRONICS LEAD Dl Finney MD LAB BLOOD ORDERABLES Final Result MARCELINO [address] [facility] Department [place] [address] * (ABNORMAL) Comprehensive metabolic panel (10/15/2024 5:04 AM ELECTRONICS LEAD) Sodium 139 135 - 145 mmol/L Comment:Testing performed by : [address] [address] Potassium, pl 3.8 3.3 - 4.9 mmol/L MARCELINO HAYWOOD Comment:Testing performed by : [address] [address] Chloride 102 97 - 110 mmol/L MARCELINO HAYWOOD Comment:Testing performed by : [address] [address] CO2 27 22 - 32 mmol/L MARCELINO HAYWOOD Comment:Testing performed by : [address] [address] Anion gap 10 2 - 15 mmol/L MARCELINO HAYWOOD Comment:Testing performed by : [address] [address] BUN 14 6 - 25 mg/dL MARCELINO HAYWOOD Comment:Testing performed by : [address] [address] Creatinine 0.80 0.60 - 1.10 mg/dL MARCELINO Comment:Testing performed by : [address] [address] Glucose 121 70 - 199 mg/dL MARCELINO Comment: Interpretive Data Fasting glucose >/= 126 mg/dl is diagnostic for diabetes. Fasting is defined as no caloric intake for at least 8 hours. Fasting glucose between 100 mg/dl to 125 mg/dl is diagnostic of prediabetes. In a patient with classic symptoms of hyperglycemia or hyperglycemic crisis, a random glucose >/= 200 mg/dl is diagnostic for diabetes. In the absence of unequivocal hyperglycemia, results should be confirmed by repeat testing. The classification and Diagnosis of Diabetes Diabetes Care 202; 46: S19-S40. Current interpretive data was last revised 2022. Testing performed by: [address] [address] Calcium 9.9 8.5 - 10.3 mg/dL MARCELINO Comment:Testing performed by : [address] [address] Bilirubin, total 0.2 0.1 - 1.2 mg/dL MARCELINO Comment:Testing performed by : [address] [address] Protein, pl 5.9(L) 6.5 - 8.5 g/dL MARCELINO Comment:Testing performed by : [address] [address] Albumin 3.3(L) 3.5 - 5.0 g/dL [facility] Comment:Testing performed by : [address] [address] Alk phos 78 40 - 130 Units/L MARCELINO Comment:Testing performed by : [address] [address] ALT 9 7 - 45 Units/L MARCELINO Comment:Testing performed by : [address], [address] AST 12 10 - 45 Units/L MARCELINO Comment:Testing performed by : [address] [address] Blood 10/15/2024 5:04 AM ELECTRONICS LEAD 10/15/2024 5:45 AM ELECTRONICS LEAD Dl Finney MD LAB BLOOD ORDERABLES Final Result [address] [place] [employer] [place] [address] * (ABNORMAL) POCT glucose (10/14/2024 8:00 PM ELECTRONICS LEAD) Glucose, POC 240(H) 70 - 199 mg/dL Comment:Testing performed by : [address] [address] Blood 10/14/2024 8:00 PM ELECTRONICS LEAD 10/14/2024 8:00 PM ELECTRONICS LEAD Conor Ventura MD LAB POCT ORDERABLE S - DEVICE Final Result Performing Organization Address [facility]/ZIP Co de Phone Number [address] [address] * POCT glucose (10/14/2024 4:28 PM ELECTRONICS LEAD) Glucose, POC 153 70 - 199 mg/dL Comment:Testing performed by : [address] [address] Blood 10/14/2024 4:28 PM ELECTRONICS LEAD 10/14/2024 4:28 PM ELECTRONICS LEAD Conor Ventura MD LAB POCT ORDERABLE S - DEVICE Final Result [address] [employer] [place] [address] * POCT glucose (10/14/2024 9:03 AM ELECTRONICS LEAD) Glucose, POC 115 70 - 199 mg/dL Comment:Testing performed by : [facility], [address] [place] [address]., [address] Blood 10/14/2024 9:03 AM ELECTRONICS LEAD 10/14/2024 9:03 AM ELECTRONICS LEAD Conor Ventura MD LAB POCT ORDERABLE S - DEVICE Final Result Performing Organization Address City/[facility]/ZIP Co de Phone Number MARCELINO [address] [place] [employer] [address] * eGFR (10/14/2024 5:09 AM ELECTRONICS LEAD) eGFR 73 >=60 mL/min/1. 73 m2 Comment: Interpretive Data Reference Interval Normal >/= 90 mL/min/1.73m2 Mildly decreased* 60 - 89 mL/min/1.73m2 Mildly to moderately decreased 45 - 59 mL/min/1.73m2 Moderately to severely decreased 30 - 44 mL/min/1.73m2 Severely decreased 15 - 29 mL/min/1.73m2 Kidney Failure < 15 mL/min/1.73m2 *Relative to young adult level Estimated glomerular filtration rate is determined by the 2020 CKD-EPI equation recommended by the National Kidney Foundation (A Unifying Approach to GFR Estimation: Recommendations of the NKF-ASK Task Force on Reassessing the Inclusion of Race in Diagnosing Kidney Disease, JASN 2020). The CKD-EPI equation should not be used for patients with unstable renal function and has not been validated in children and those over 70. Current interpretive data was last reviewed 2021. Testing performed by: [facility], [address] [place] [address]., [address] Blood 10/14/2024 5:09 AM ELECTRONICS LEAD 10/14/2024 5:59 AM ELECTRONICS LEAD us Dl Finney MD LAB BLOOD ORDERABLES Final Result Performing Organization Address City/[facility]/ZIP Co de Phone Number ORLIN[address] [place] [employer] [address] * Differential, auto (10/14/2024 5:09 AM ELECTRONICS LEAD) Neutrophil abs 2.2 1.5 - 6.5 K/cumm Comment:Testing performed by : [address] [address] Imm gran abs 0.0 0.0 - 0.1 K/cumm [facility] Comment:Testing performed by : [address] [address] Lymphocyte abs 1.2 0.8 - 3.3 K/cumm [facility] Comment:Testing performed by : [address] [address] Monocyte abs 0.7 0.2 - 0.8 K/cumm [facility] Comment:Testing performed by : [address] [address] Eosinophil abs 0.2 0.0 - 0.5 K/cumm [facility] Comment:Testing performed by : [address] [address] Basophil abs 0.0 0.0 - 0.1 K/cumm [facility] Comment:Testing performed by : [address] [address] Neutrophil pct 51.0 % [facility] Comment: Interpretive Data Percent cell count reference ranges are not reported, since discordance with absolute values may lead to misinterpretation of CBC data. Current Interpretive Data was last revised on 2017. Testing performed by: [address] [address] Imm gran pct 0.7 % [facility] Comment: Interpretive Data Percent cell count reference ranges are not reported, since discordance with absolute values may lead to misinterpretation of CBC data. Current Interpretive Data was last revised on 2017. Testing performed by: [address] [address] Lymphocyte pct 27.8 % CERNER Comment: Interpretive Data Percent cell count reference ranges are not reported, since discordance with absolute values may lead to misinterpretation of CBC data. Current Interpretive Data was last revised on 2017. Testing performed by: [address] [address] Monocyte pct 15.8 % MARCELINO Comment: Interpretive Data Percent cell count reference ranges are not reported, since discordance with absolute values may lead to misinterpretation of CBC data. Current Interpretive Data was last revised on 2017. Testing performed by: [address] [address] Eosinophil pct 4.0 % MARCELINO Comment: Interpretive Data Percent cell count reference ranges are not reported, since discordance with absolute values may lead to misinterpretation of CBC data. Current Interpretive Data was last revised on 2017. Testing performed by: [address] [address] Basophil pct 0.7 % MARCELINO Comment: Interpretive Data Percent cell count reference ranges are not reported, since discordance with absolute values may lead to misinterpretation of CBC data. Current Interpretive Data was last revised on 2017. Testing performed by: [address] [address] Blood 10/14/2024 5:09 AM ELECTRONICS LEAD 10/14/2024 5:58 AM ELECTRONICS LEAD Dl Finney MD LAB BLOOD ORDERABLES Final Result MARCELINO [address] [facility] Department [place] [address] * (ABNORMAL) CBC with auto differential (10/14/2024 5:09 AM ELECTRONICS LEAD) WBC 4.2 3.8 - 9.9 K/cumm Comment:Testing performed by : [address] [address] Hgb 10.0(L) 11.9 - 15.5 g/dL MARCELINO HAYWOOD Comment:Testing performed by : [address] [address] Hct 33.9(L) 35.6 - 45.5 % MARCELINO Comment:Testing performed by : [address] [address] Plt 302 150 - 400 K/cumm MARCELINO Comment:Testing performed by : [address] [address] MPV 9.6 9.1 - 12.3 fL MARCELINO Comment:Testing performed by : [address] [address] RBC 3.85(L) 3.90 - 5.20 M/cumm MARCELINO Comment:Testing performed by : [address] [address] MCV 88.1 81.3 - 96.4 fL MARCELINO Comment:Testing performed by : [address] [address] MCH 26.0(L) 27.1 - 33.3 pg MARCELINO Comment:Testing performed by : [address] [address] MCHC 29.5(L) 32.3 - 35.7 g/dL MARCELINO Comment:Testing performed by : [address] [address] RDW CV 17.3(H) 11.1 - 14.9 % MARCELINO Comment:Testing performed by : [address] [address] RDW SD 55.3(H) 35.7 - 48.1 fL MARCELINO Comment:Testing performed by : [address] [address] NRBC abs 0.00 0.00 - 0.01 K/cumm MARCELINO Comment:Testing performed by : [address] [address] Blood 10/14/2024 5:09 AM ELECTRONICS LEAD 10/14/2024 5:58 AM ELECTRONICS LEAD us Dl Finney MD LAB BLOOD ORDERABLES Final Result MARCELINO [address] [facility] Department [place] [address] * (ABNORMAL) Comprehensive metabolic panel (10/14/2024 5:09 AM ELECTRONICS LEAD) Sodium 141 135 - 145 mmol/L Comment:Testing performed by : [address] [address] Potassium, pl 3.7 3.3 - 4.9 mmol/L MARCELINO Comment:Testing performed by : [address] [address] Chloride 102 97 - 110 mmol/L MARCELINO Comment:Testing performed by : [address], [place]., [address] CO2 30 22 - 32 mmol/L MARCELINO Comment:Testing performed by : [address] [address] Anion gap 9 2 - 15 mmol/L MARCELINO Comment:Testing performed by : [address] [address] BUN 15 6 - 25 mg/dL MARCELINO Comment:Testing performed by : [address], [place]., [address] Creatinine 0.80 0.60 - 1.10 mg/dL MARCELINO Comment:Testing performed by : [address] [address] Glucose 100 70 - 199 mg/dL MARCELINO Comment: Interpretive Data Fasting glucose >/= 126 mg/dl is diagnostic for diabetes. Fasting is defined as no caloric intake for at least 8 hours. Fasting glucose between 100 mg/dl to 125 mg/dl is diagnostic of prediabetes. In a patient with classic symptoms of hyperglycemia or hyperglycemic crisis, a random glucose >/= 200 mg/dl is diagnostic for diabetes. In the absence of unequivocal hyperglycemia, results should be confirmed by repeat testing. The classification and Diagnosis of Diabetes Diabetes Care 202; 46: S19-S40. Current interpretive data was last revised 2022. Testing performed by: [address] [address] Calcium 9.7 8.5 - 10.3 mg/dL MARCELINO Comment:Testing performed by : [address] [address] Bilirubin, total 0.2 0.1 - 1.2 mg/dL MARCELINO Comment:Testing performed by : [address] [address] Protein, pl 5.5(L) 6.5 - 8.5 g/dL MARCELINO Comment:Testing performed by : [address], [place]., [address] Albumin 3.1(L) 3.5 - 5.0 g/dL MARCELINO Comment:Testing performed by : [address], [place]., [address] Alk phos 71 40 - 130 Units/L MARCELINO Comment:Testing performed by : [address] [address] ALT 8 7 - 45 Units/L MARCELINO Comment:Testing performed by : [address] [address] AST 9(L) 10 - 45 Units/L MARCELINO Comment:Testing performed by : [address] [address] Blood 10/14/2024 5:09 AM ELECTRONICS LEAD 10/14/2024 5:59 AM ELECTRONICS LEAD Dl Finney MD LAB BLOOD ORDERABLES Final Result [facility] [address] [facility] Department [place] [address] * POCT glucose (10/13/2024 9:39 PM ELECTRONICS LEAD) [facility] Glucose, POC 136 70 - 199 mg/dL Comment:Testing performed by : [address] [address] Glucose comment 1 Use This Result MARCELINO HAYWOOD Comment:Testing performed by : [address] [address] Glucose comment 2 RN/MD Notified MARCELINO Comment:Testing performed by : [address] [address] Blood 10/13/2024 9:39 PM ELECTRONICS LEAD 10/13/2024 9:39 PM ELECTRONICS LEAD Conor Ventura MD LAB POCT ORDERABLE S - DEVICE Final Result Performing Organization Address [facility] Co de Phone Number MARCELINO [address] [employer] [place] [address] * POCT glucose (10/13/2024 5:05 PM ELECTRONICS LEAD) Glucose, POC 130 70 - 199 mg/dL Comment:Testing performed by : [address] [address] Blood 10/13/2024 5:05 PM ELECTRONICS LEAD 10/13/2024 5:05 PM ELECTRONICS LEAD Conor Ventura MD LAB POCT ORDERABLE S - DEVICE Final Result Performing Organization Address [facility] de Phone Number ORLIN[address] [employer] [place] [address] * POCT glucose (10/13/2024 1:15 PM ELECTRONICS LEAD) Glucose, POC 127 70 - 199 mg/dL Comment:Testing performed by : [address] [address] Glucose comment 1 Use This Result MARCELINO Comment:Testing performed by : [address] [address] Blood 10/13/2024 1:15 PM ELECTRONICS LEAD 10/13/2024 1:15 PM ELECTRONICS LEAD Conor Ventura MD LAB POCT ORDERABLE S - DEVICE Final Result Performing Organization Address [facility] Co de Phone Number MARCELINO [address] [place] [address] * POCT glucose (10/13/2024 8:15 AM ELECTRONICS LEAD) Glucose, POC 92 70 - 199 mg/dL Comment:Testing performed by : [facility], [address] [place] [address]., [address] Blood 10/13/2024 8:15 AM ELECTRONICS LEAD 10/13/2024 8:15 AM ELECTRONICS LEAD us Conor Ventura MD LAB POCT ORDERABLE S - DEVICE Final Result Performing Organization Address [facility]/ZIP Co de Phone Number MARCELINO [address] [place] [employer] [address] * eGFR (10/13/2024 5:17 AM ELECTRONICS LEAD) eGFR 73 >=60 mL/min/1. 73 m2 Comment: Interpretive Data Reference Interval Normal >/= 90 mL/min/1.73m2 Mildly decreased* 60 - 89 mL/min/1.73m2 Mildly to moderately decreased 45 - 59 mL/min/1.73m2 Moderately to severely decreased 30 - 44 mL/min/1.73m2 Severely decreased 15 - 29 mL/min/1.73m2 Kidney Failure < 15 mL/min/1.73m2 *Relative to young adult level Estimated glomerular filtration rate is determined by the 2020 CKD-EPI equation recommended by the National Kidney Foundation (A Unifying Approach to GFR Estimation: Recommendations of the NKF-ASK Task Force on Reassessing the Inclusion of Race in Diagnosing Kidney Disease, JASN 2020). The CKD-EPI equation should not be used for patients with unstable renal function and has not been validated in children and those over 70. Current interpretive data was last reviewed 2021. Testing performed by: [facility], [address] [place] [address]., [address] Blood 10/13/2024 5:17 AM ELECTRONICS LEAD 10/13/2024 6:16 AM ELECTRONICS LEAD us Dl Finney MD LAB BLOOD ORDERABLES Final Result Performing Organization Address City/[facility]/ZIP Co de Phone Number ORLIN[address] [place] [employer] [address] * Differential, auto (10/13/2024 5:17 AM ELECTRONICS LEAD) Neutrophil abs 3.7 1.5 - 6.5 K/cumm Comment:Testing performed by : [address] [address] Imm gran abs 0.1 0.0 - 0.1 K/cumm [facility] Comment:Testing performed by : [address] [address] Lymphocyte abs 1.3 0.8 - 3.3 K/cumm [facility] Comment:Testing performed by : [address] [address] Monocyte abs 0.6 0.2 - 0.8 K/cumm [facility] Comment:Testing performed by : [address] [address] Eosinophil abs 0.2 0.0 - 0.5 K/cumm [facility] Comment:Testing performed by : [address] [address] Basophil abs 0.0 0.0 - 0.1 K/cumm [facility] Comment:Testing performed by : [address] [address] Neutrophil pct 62.8 % [facility] Comment: Interpretive Data Percent cell count reference ranges are not reported, since discordance with absolute values may lead to misinterpretation of CBC data. Current Interpretive Data was last revised on 2017. Testing performed by: [address] [address] Imm gran pct 0.9 % [facility] Comment: Interpretive Data Percent cell count reference ranges are not reported, since discordance with absolute values may lead to misinterpretation of CBC data. Current Interpretive Data was last revised on 2017. Testing performed by: [address] [address] Lymphocyte pct 22.0 % [facility] Comment: Interpretive Data Percent cell count reference ranges are not reported, since discordance with absolute values may lead to misinterpretation of CBC data. Current Interpretive Data was last revised on 2017. Testing performed by: [address] [address] Monocyte pct 10.7 % MARCELINO Comment: Interpretive Data Percent cell count reference ranges are not reported, since discordance with absolute values may lead to misinterpretation of CBC data. Current Interpretive Data was last revised on 2017. Testing performed by: [address] [address] Eosinophil pct 3.1 % MARCELINO Comment: Interpretive Data Percent cell count reference ranges are not reported, since discordance with absolute values may lead to misinterpretation of CBC data. Current Interpretive Data was last revised on 2017. Testing performed by: [address] [address] Basophil pct 0.5 % MARCELINO Comment: Interpretive Data Percent cell count reference ranges are not reported, since discordance with absolute values may lead to misinterpretation of CBC data. Current Interpretive Data was last revised on 2017. Testing performed by: [address] [address] Blood 10/13/2024 5:17 AM ELECTRONICS LEAD 10/13/2024 6:16 AM ELECTRONICS LEAD lD Finney MD LAB BLOOD ORDERABLES Final Result [facility] [address] [facility] Department [place] [address] * (ABNORMAL) CBC with auto differential (10/13/2024 5:17 AM ELECTRONICS LEAD) WBC 5.9 3.8 - 9.9 K/cumm Comment:Testing performed by : [address] [address] Hgb 10.4(L) 11.9 - 15.5 g/dL MARCELINO Comment:Testing performed by : [address] [address] Hct 34.7(L) 35.6 - 45.5 % MARCELINO Comment:Testing performed by : [address] [place] [address] Plt 342 150 - 400 K/cumm MARCELINO Comment:Testing performed by : [address] [address] MPV 9.7 9.1 - 12.3 fL MARCELINO HAYWOOD Comment:Testing performed by : [address] [address] RBC 3.92 3.90 - 5.20 M/cumm MARCELINO Comment:Testing performed by : [address] [address] MCV 88.5 81.3 - 96.4 fL MARCELINO Comment:Testing performed by : [address] [address] MCH 26.5(L) 27.1 - 33.3 pg MARCELINO Comment:Testing performed by : [address] [address] MCHC 30.0(L) 32.3 - 35.7 g/dL MARCELINO Comment:Testing performed by : [address] [address] RDW CV 17.1(H) 11.1 - 14.9 % MARCELINO Comment:Testing performed by : [address] [address] RDW SD 55.2(H) 35.7 - 48.1 fL MARCELINO Comment:Testing performed by : [address] [address] NRBC abs 0.00 0.00 - 0.01 K/cumm MARCELINO Comment:Testing performed by : [address] [address] Blood 10/13/2024 5:17 AM ELECTRONICS LEAD 10/13/2024 6:16 AM ELECTRONICS LEAD us Dl Finney MD LAB BLOOD ORDERABLES Final Result MARCELINO [address] [facility] Department [place] [address] * (ABNORMAL) Comprehensive metabolic panel (10/13/2024 5:17 AM ELECTRONICS LEAD) Sodium 138 135 - 145 mmol/L Comment:Testing performed by : [address], [place]., [address] Potassium, pl 3.9 3.3 - 4.9 mmol/L MARCELINO Comment:Testing performed by : [address] [address] Chloride 102 97 - 110 mmol/L MARCELINO Comment:Testing performed by : [address], [place]., [address] CO2 28 22 - 32 mmol/L MARCELINO Comment:Testing performed by : [address] [address] Anion gap 8 2 - 15 mmol/L MARCELINO Comment:Testing performed by : [address] [address] BUN 15 6 - 25 mg/dL MARCELINO Comment:Testing performed by : [address], [place]., [address] Creatinine 0.80 0.60 - 1.10 mg/dL MARCELINO Comment:Testing performed by : [address] [address] Glucose 100 70 - 199 mg/dL [facility] Comment: Interpretive Data Fasting glucose >/= 126 mg/dl is diagnostic for diabetes. Fasting is defined as no caloric intake for at least 8 hours. Fasting glucose between 100 mg/dl to 125 mg/dl is diagnostic of prediabetes. In a patient with classic symptoms of hyperglycemia or hyperglycemic crisis, a random glucose >/= 200 mg/dl is diagnostic for diabetes. In the absence of unequivocal hyperglycemia, results should be confirmed by repeat testing. The classification and Diagnosis of Diabetes Diabetes Care 202; 46: S19-S40. Current interpretive data was last revised 2022. Testing performed by: [address], [place]., [address] Calcium 10.1 8.5 - 10.3 mg/dL MARCELINO Comment:Testing performed by : [address] [address] Bilirubin, total 0.3 0.1 - 1.2 mg/dL MARCELINO Comment:Testing performed by : [address] [address] Protein, pl 6.0(L) 6.5 - 8.5 g/dL MARCELINO Comment:Testing performed by : [address] [address] Albumin 3.4(L) 3.5 - 5.0 g/dL MARCELINO Comment:Testing performed by : [address], [place]., [address] Alk phos 83 40 - 130 Units/L MARCELINO Comment:Testing performed by : [address] [address] ALT 9 7 - 45 Units/L MARCELINO Comment:Testing performed by : [address] [address] AST 10 10 - 45 Units/L MARCELINO Comment:Testing performed by : [address] [address] Blood 10/13/2024 5:17 AM ELECTRONICS LEAD 10/13/2024 6:16 AM ELECTRONICS LEAD us Dl Finney MD LAB BLOOD ORDERABLES Final Result Performing Organization Address City/State/[facility] Co de Phone Number [facility] [address] [facility] Department [place] [address] * POCT glucose (10/12/2024 8:39 PM ELECTRONICS LEAD) [facility] Glucose, POC 168 70 - 199 mg/dL Comment:Testing performed by : [address] [address] Glucose comment 1 Use This Result MARCELINO Comment:Testing performed by : [address] [address] Blood 10/12/2024 8:39 PM ELECTRONICS LEAD 10/12/2024 8:39 PM ELECTRONICS LEAD us Conor Ventura MD LAB POCT ORDERABLE S - DEVICE Final Result MARCELINO [address] [employer] [place] [address] * (ABNORMAL) POCT glucose (10/12/2024 5:40 PM ELECTRONICS LEAD) Glucose, POC 213(H) 70 - 199 mg/dL Comment:Testing performed by : [address] [address] Glucose comment 1 Use This Result MARCELINO HAYWOOD Comment:Testing performed by : [address], [address] Glucose comment 2 RN/MD Notified MARCELINO Comment:Testing performed by : [address] [address] Blood 10/12/2024 5:40 PM ELECTRONICS LEAD 10/12/2024 5:40 PM ELECTRONICS LEAD Conor Ventura MD LAB POCT ORDERABLE S - DEVICE Final Result Performing Organization Address City/[facility]/ZIP Co de Phone Number MARCELINO [address] [employer] [place] [address] * (ABNORMAL) POCT glucose (10/12/2024 5:01 PM ELECTRONICS LEAD) Glucose, POC 224(H) 70 - 199 mg/dL Comment:Testing performed by : [address] [address] Blood 10/12/2024 5:01 PM ELECTRONICS LEAD 10/12/2024 5:01 PM ELECTRONICS LEAD Conor Ventura MD LAB POCT ORDERABLE S - DEVICE Final Result MARCELINO [address] [place] [address] * (ABNORMAL) POCT glucose (10/12/2024 11:14 AM ELECTRONICS LEAD) [facility] Glucose, POC 205(H) 70 - 199 mg/dL Comment:Testing performed by : [facility], [address] [place] [address]., [address] Glucose comment 1 Use This Result MARCELINO HAYWOOD Comment:Testing performed by : [facility], [address] [place] [address]., [address] Glucose comment 2 RN/MD Notified MARCELINO HAYWOOD Comment:Testing performed by : [address] [address] Blood 10/12/2024 11:1 4 AM ELECTRONICS LEAD 10/12/2024 11:14 AM ELECTRONICS LEAD Conor Ventura MD LAB POCT ORDERABLE S - DEVICE Final Result MARCELINO HAYWOOD [address] [facility] Department of Laboratories [place], [place] [id number] * eGFR (10/12/2024 9:15 AM ELECTRONICS LEAD) [facility] eGFR 73 >=60 mL/min/1. 73 m2 Comment: Interpretive Data Reference Interval Normal >/= 90 mL/min/1.73m2 Mildly decreased* 60 - 89 mL/min/1.73m2 Mildly to moderately decreased 45 - 59 mL/min/1.73m2 Moderately to severely decreased 30 - 44 mL/min/1.73m2 Severely decreased 15 - 29 mL/min/1.73m2 Kidney Failure < 15 mL/min/1.73m2 *Relative to young adult level Estimated glomerular filtration rate is determined by the 2020 CKD-EPI equation recommended by the National Kidney Foundation (A Unifying Approach to GFR Estimation: Recommendations of the NKF-ASK Task Force on Reassessing the Inclusion of Race in Diagnosing Kidney Disease, JASN 2020). The CKD-EPI equation should not be used for patients with unstable renal function and has not been validated in children and those over 70. Current interpretive data was last reviewed 2021. Testing performed by: [address] [address] Blood 10/12/2024 9:15 AM ELECTRONICS LEAD 10/12/2024 9:27 AM ELECTRONICS LEAD us Dl Finney MD LAB BLOOD ORDERABLES Final Result MARCELINO [address] [facility] Department [place] [address] * Differential, auto (10/12/2024 9:15 AM ELECTRONICS LEAD) Neutrophil abs 6.3 1.5 - 6.5 K/cumm Comment:Testing performed by : [address] [address] Imm gran abs 0.1 0.0 - 0.1 K/cumm MARCELINO Comment:Testing performed by : [address] [address] Lymphocyte abs 1.3 0.8 - 3.3 K/cumm MARCELINO Comment:Testing performed by : [address] [address] Monocyte abs 0.7 0.2 - 0.8 K/cumm MARCELINO Comment:Testing performed by : [address] [address] Eosinophil abs 0.2 0.0 - 0.5 K/cumm MARCELINO Comment:Testing performed by : [address] [address] Basophil abs 0.0 0.0 - 0.1 K/cumm MARCELINO Comment:Testing performed by : [address] [address] Neutrophil pct 73.9 % MARCELINO Comment: Interpretive Data Percent cell count reference ranges are not reported, since discordance with absolute values may lead to misinterpretation of CBC data. Current Interpretive Data was last revised on 2017. Testing performed by: [address] [address] Imm gran pct 0.8 % MARCELINO Comment: Interpretive Data Percent cell count reference ranges are not reported, since discordance with absolute values may lead to misinterpretation of CBC data. Current Interpretive Data was last revised on 2017. Testing performed by: [address] [address] Lymphocyte pct 15.4 % [facility] Comment: Interpretive Data Percent cell count reference ranges are not reported, since discordance with absolute values may lead to misinterpretation of CBC data. Current Interpretive Data was last revised on 2017. Testing performed by: [address] [address] Monocyte pct 7.6 % [facility] Comment: Interpretive Data Percent cell count reference ranges are not reported, since discordance with absolute values may lead to misinterpretation of CBC data. Current Interpretive Data was last revised on 2017. Testing performed by: [address] [address] Eosinophil pct 2.2 % [facility] Comment: Interpretive Data Percent cell count reference ranges are not reported, since discordance with absolute values may lead to misinterpretation of CBC data. Current Interpretive Data was last revised on 2017. Testing performed by: [address] [address] Basophil pct 0.1 % [facility] Comment: Interpretive Data Percent cell count reference ranges are not reported, since discordance with absolute values may lead to misinterpretation of CBC data. Current Interpretive Data was last revised on 2017. Testing performed by: [address] [address] Blood 10/12/2024 9:15 AM ELECTRONICS LEAD 10/12/2024 9:27 AM ELECTRONICS LEAD Conor Ventura MD LAB BLOOD ORDERABL ES Final Result [facility] [address] [facility] Department [place] [address] * (ABNORMAL) CBC with auto differential (10/12/2024 9:15 AM ELECTRONICS LEAD) WBC 8.5 3.8 - 9.9 K/cumm Comment:Testing performed by : [address] [address] Hgb 10.2(L) 11.9 - 15.5 g/dL MARCELINO Comment:Testing performed by : [address] [address] Hct 35.1(L) 35.6 - 45.5 % MARCELINO Comment:Testing performed by : [address] [address] Plt 297 150 - 400 K/cumm MARCELINO Comment:Testing performed by : [address] [address] MPV 9.7 9.1 - 12.3 fL MARCELINO Comment:Testing performed by : [address] [address] RBC 3.92 3.90 - 5.20 M/cumm MARCELINO Comment:Testing performed by : [address] [address] MCV 89.5 81.3 - 96.4 fL MARCELINO Comment:Testing performed by : [address] [address] MCH 26.0(L) 27.1 - 33.3 pg MARCELINO Comment:Testing performed by : [address] [address] MCHC 29.1(L) 32.3 - 35.7 g/dL MARCELINO Comment:Testing performed by : [address] [address] RDW CV 17.2(H) 11.1 - 14.9 % MARCELINO Comment:Testing performed by : [address] [address] RDW SD 55.8(H) 35.7 - 48.1 fL MARCELINO Comment:Testing performed by : [address] [address] NRBC abs 0.00 0.00 - 0.01 K/cumm MARCELINO Comment:Testing performed by : [address] [address] Blood 10/12/2024 9:15 AM ELECTRONICS LEAD 10/12/2024 9:27 AM ELECTRONICS LEAD us Conor Ventura MD LAB BLOOD ORDERABL ES Final Result MARCELINO [address] [facility] Department [place] [address] * (ABNORMAL) Comprehensive metabolic panel (10/12/2024 9:15 AM ELECTRONICS LEAD) Sodium 137 135 - 145 mmol/L Comment:Testing performed by : [address] [address] Potassium, pl 4.4 3.3 - 4.9 mmol/L MARCELINO Comment:Testing performed by : [address] [address] Chloride 102 97 - 110 mmol/L MARCELINO Comment:Testing performed by : [address] [address] CO2 27 22 - 32 mmol/L MARCELINO Comment:Testing performed by : [address] [address] Anion gap 8 2 - 15 mmol/L MARCELINO Comment:Testing performed by : [address] [address] BUN 16 6 - 25 mg/dL MARCELINO Comment:Testing performed by : [address] [address] Creatinine 0.80 0.60 - 1.10 mg/dL MARCELINO Comment:Testing performed by : [address] [address] Glucose 113 70 - 199 mg/dL MARCELINO Comment: Interpretive Data Fasting glucose >/= 126 mg/dl is diagnostic for diabetes. Fasting is defined as no caloric intake for at least 8 hours. Fasting glucose between 100 mg/dl to 125 mg/dl is diagnostic of prediabetes. In a patient with classic symptoms of hyperglycemia or hyperglycemic crisis, a random glucose >/= 200 mg/dl is diagnostic for diabetes. In the absence of unequivocal hyperglycemia, results should be confirmed by repeat testing. The classification and Diagnosis of Diabetes Diabetes Care 202; 46: S19-S40. Current interpretive data was last revised 2022. Testing performed by: [address] [address] Calcium 9.8 8.5 - 10.3 mg/dL MARCELINO HAYWOOD Comment:Testing performed by : [address] [address] Bilirubin, total 0.3 0.1 - 1.2 mg/dL MARCELINO Comment:Testing performed by : [address] [address] Protein, pl 5.7(L) 6.5 - 8.5 g/dL MARCELINO Comment:Testing performed by : [address] [address] Albumin 3.2(L) 3.5 - 5.0 g/dL MARCELINO Comment:Testing performed by : [address] [address] Alk phos 77 40 - 130 Units/L MARCELINO Comment:Testing performed by : [address] [address] ALT 7 7 - 45 Units/L MARCELINO Comment:Testing performed by : [address] [address] AST 13 10 - 45 Units/L MARCELINO Comment:Testing performed by : [address] [address] Blood 10/12/2024 9:15 AM ELECTRONICS LEAD 10/12/2024 9:27 AM ELECTRONICS LEAD us Dl Finney MD LAB BLOOD ORDERABLES Final Result MARCELINO [address] [facility] Department [place] [address] * POCT glucose (10/12/2024 7:46 AM ELECTRONICS LEAD) [facility] Glucose, POC 114 70 - 199 mg/dL Comment:Testing performed by : [address] [address] Glucose comment 1 Use This Result MARCELINO HAYWOOD Comment:Testing performed by : [address] [address] Glucose comment 2 RN/MD Notified MARCELINO Comment:Testing performed by : [address] [address] Blood 10/12/2024 7:46 AM ELECTRONICS LEAD 10/12/2024 7:46 AM ELECTRONICS LEAD Conor Ventura MD LAB POCT ORDERABLE S - DEVICE Final Result Performing Organization Address [facility] Co de Phone Number MARCELINO [address] [facility] [employer] [place] [address] * (ABNORMAL) POCT glucose (10/11/2024 9:10 PM ELECTRONICS LEAD) Glucose, POC 254(H) 70 - 199 mg/dL Comment:Testing performed by : [address] [address] Glucose comment 1 Use This Result [facility] Comment:Testing performed by : [address] [address] Glucose comment 2 RN/MD Notified MARCELINO Comment:Testing performed by : [address] [address] Blood 10/11/2024 9:10 PM ELECTRONICS LEAD 10/11/2024 9:10 PM ELECTRONICS LEAD Conor Ventura MD LAB POCT ORDERABLE S - DEVICE Final Result Performing Organization Address [facility] Co de Phone Number [facility] [address] [facility] [place] [address] * (ABNORMAL) POCT glucose (10/11/2024 3:37 PM ELECTRONICS LEAD) Glucose, POC 284(H) 70 - 199 mg/dL Comment:Testing performed by : [address] [address] Glucose comment 1 Use This Result [facility] Comment:Testing performed by : [address] [address] Glucose comment 2 RN/MD Notified MARCELINO Comment:Testing performed by : [address] [address] Blood 10/11/2024 3:37 PM ELECTRONICS LEAD 10/11/2024 3:37 PM ELECTRONICS LEAD Result [facility] Conor Ventura MD LAB POCT ORDERABLE S - DEVICE Final Result Performing Organization Address [facility] Co de Phone Number MARCELINO [address] [facility] [place] [address] * (ABNORMAL) POCT glucose (10/11/2024 11:20 AM ELECTRONICS LEAD) Glucose, POC 202(H) 70 - 199 mg/dL Comment:Testing performed by : [address] [address] Glucose comment 1 Use This Result MARCELINO Comment:Testing performed by : [address] [address] Glucose comment 2 RN/MD Notified MARCELINO Comment:Testing performed by : [address] [address] Blood 10/11/2024 11:2 0 AM ELECTRONICS LEAD 10/11/2024 11:20 AM ELECTRONICS LEAD Conor Ventura MD LAB POCT ORDERABLE S - DEVICE Final Result Performing Organization Address [facility] Co de Phone Number [facility] [address] [facility] [place] [address] * POCT glucose (10/11/2024 7:52 AM ELECTRONICS LEAD) Glucose, POC 128 70 - 199 mg/dL Comment:Testing performed by : [address] [address] Glucose comment 1 Use This Result MARCELINO Comment:Testing performed by : [address] [address] Glucose comment 2 RN/MD Notified MARCELINO Comment:Testing performed by : [facility], [address] [place] [address]., [address] Blood 10/11/2024 7:52 AM ELECTRONICS LEAD 10/11/2024 7:52 AM ELECTRONICS LEAD us Conor Ventura MD LAB POCT ORDERABLE S - DEVICE Final Result Performing Organization Address City/[facility] Co de Phone Number MARCELINO [address] [place] [address] * eGFR (10/11/2024 5:35 AM ELECTRONICS LEAD) eGFR 63 >=60 mL/min/1. 73 m2 Comment: Interpretive Data Reference Interval Normal >/= 90 mL/min/1.73m2 Mildly decreased* 60 - 89 mL/min/1.73m2 Mildly to moderately decreased 45 - 59 mL/min/1.73m2 Moderately to severely decreased 30 - 44 mL/min/1.73m2 Severely decreased 15 - 29 mL/min/1.73m2 Kidney Failure < 15 mL/min/1.73m2 *Relative to young adult level Estimated glomerular filtration rate is determined by the 2020 CKD-EPI equation recommended by the National Kidney Foundation (A Unifying Approach to GFR Estimation: Recommendations of the NKF-ASK Task Force on Reassessing the Inclusion of Race in Diagnosing Kidney Disease, JASN 2020). The CKD-EPI equation should not be used for patients with unstable renal function and has not been validated in children and those over 70. Current interpretive data was last reviewed 2021. Testing performed by: [facility], [address] [place] [address]., [address] Blood 10/11/2024 5:35 AM ELECTRONICS LEAD 10/11/2024 5:47 AM ELECTRONICS LEAD us Dl Finney MD LAB BLOOD ORDERABLES Final Result Performing Organization Address City/[facility]/ZIP Co de Phone Number [place] [id number] [facility] [place] [address] * (ABNORMAL) Differential, auto (10/11/2024 5:35 AM ELECTRONICS LEAD) Neutrophil abs 8.8(H) 1.5 - 6.5 K/cumm Comment:Testing performed by : [address] [address] Imm gran abs 0.1 0.0 - 0.1 K/cumm MARCELINO Comment:Testing performed by : [address] [address] Lymphocyte abs 1.1 0.8 - 3.3 K/cumm MARCELINO Comment:Testing performed by : [address] [address] Monocyte abs 0.9(H) 0.2 - 0.8 K/cumm [facility] Comment:Testing performed by : [address] [address] Eosinophil abs 0.2 0.0 - 0.5 K/cumm [facility] Comment:Testing performed by : [address] [address] Basophil abs 0.0 0.0 - 0.1 K/cumm [facility] Comment:Testing performed by : [address] [address] Neutrophil pct 79.0 % [facility] Comment: Interpretive Data Percent cell count reference ranges are not reported, since discordance with absolute values may lead to misinterpretation of CBC data. Current Interpretive Data was last revised on 2017. Testing performed by: [address] [address] Imm gran pct 1.2 % [facility] Comment: Interpretive Data Percent cell count reference ranges are not reported, since discordance with absolute values may lead to misinterpretation of CBC data. Current Interpretive Data was last revised on 2017. Testing performed by: [address] [address] Lymphocyte pct 9.7 % [facility] Comment: Interpretive Data Percent cell count reference ranges are not reported, since discordance with absolute values may lead to misinterpretation of CBC data. Current Interpretive Data was last revised on 2017. Testing performed by: [address] [address] Monocyte pct 8.4 % MARCELINO Comment: Interpretive Data Percent cell count reference ranges are not reported, since discordance with absolute values may lead to misinterpretation of CBC data. Current Interpretive Data was last revised on 2017. Testing performed by: [address] [address] Eosinophil pct 1.5 % MARCELINO Comment: Interpretive Data Percent cell count reference ranges are not reported, since discordance with absolute values may lead to misinterpretation of CBC data. Current Interpretive Data was last revised on 2017. Testing performed by: [address] [address] Basophil pct 0.2 % MARCELINO Comment: Interpretive Data Percent cell count reference ranges are not reported, since discordance with absolute values may lead to misinterpretation of CBC data. Current Interpretive Data was last revised on 2017. Testing performed by: [address] [address] Blood 10/11/2024 5:35 AM ELECTRONICS LEAD 10/11/2024 5:47 AM ELECTRONICS LEAD Dl Finney MD LAB BLOOD ORDERABLES Final Result [facility] [address] [facility] Department [place] [address] * (ABNORMAL) CBC with auto differential (10/11/2024 5:35 AM ELECTRONICS LEAD) WBC 11.1(H) 3.8 - 9.9 K/cumm Comment:Testing performed by : [address] [address] Hgb 10.5(L) 11.9 - 15.5 g/dL MARCELINO Comment:Testing performed by : [address] [address] Hct 34.4(L) 35.6 - 45.5 % MARCELINO Comment:Testing performed by : [address] [address]604 Plt 312 150 - 400 K/cumm MARCELINO Comment:Testing performed by : [address] [address] MPV 10.3 9.1 - 12.3 fL MARCELINO Comment:Testing performed by : [address] [address] RBC 3.97 3.90 - 5.20 M/cumm MARCELINO Comment:Testing performed by : [address] [address] MCV 86.6 81.3 - 96.4 fL MARCELINO Comment:Testing performed by : [address] [address] MCH 26.4(L) 27.1 - 33.3 pg MARCELINO Comment:Testing performed by : [address] [address] MCHC 30.5(L) 32.3 - 35.7 g/dL MARCELINO Comment:Testing performed by : [address] [address] RDW CV 17.2(H) 11.1 - 14.9 % MARCELINO Comment:Testing performed by : [address] [address] RDW SD 55.1(H) 35.7 - 48.1 fL MARCELINO Comment:Testing performed by : [address] [address] NRBC abs 0.00 0.00 - 0.01 K/cumm MARCELINO Comment:Testing performed by : [address] [address] Blood 10/11/2024 5:35 AM ELECTRONICS LEAD 10/11/2024 5:47 AM ELECTRONICS LEAD us Dl Finney MD LAB BLOOD ORDERABLES Final Result MARCELINO HAYWOOD [address] [facility] [place] [address] * Magnesium (10/11/2024 5:35 AM ELECTRONICS LEAD) Pathologist [facility] [place] Magnesium 1.7 1.4 - 2.5 mg/dL Comment:Testing performed by : [address] [address] Blood 10/11/2024 5:35 AM ELECTRONICS LEAD 10/11/2024 5:47 AM ELECTRONICS LEAD Conor Ventura MD LAB BLOOD ORDERABL ES Final Result MARCELINO [address] [facility] [place] [address] * (ABNORMAL) Comprehensive metabolic panel (10/11/2024 5:35 AM ELECTRONICS LEAD) [facility] Sodium 136 135 - 145 mmol/L Comment:Testing performed by : [address] [address] Potassium, pl 3.8 3.3 - 4.9 mmol/L MARCELINO Comment:Testing performed by : [address] [address] Chloride 99 97 - 110 mmol/L MARCELINO Comment:Testing performed by : [address] [address] CO2 23 22 - 32 mmol/L MARCELINO Comment:Testing performed by : [address] [address] Anion gap 14 2 - 15 mmol/L MARCELINO Comment:Testing performed by : [address] [address] BUN 23 6 - 25 mg/dL MARCELINO Comment:Testing performed by : [address] [address] Creatinine 0.90 0.60 - 1.10 mg/dL MARCELINO Comment:Testing performed by : [address] [address] Glucose 148 70 - 199 mg/dL MARCELINO Comment: Interpretive Data Fasting glucose >/= 126 mg/dl is diagnostic for diabetes. Fasting is defined as no caloric intake for at least 8 hours. Fasting glucose between 100 mg/dl to 125 mg/dl is diagnostic of prediabetes. In a patient with classic symptoms of hyperglycemia or hyperglycemic crisis, a random glucose >/= 200 mg/dl is diagnostic for diabetes. In the absence of unequivocal hyperglycemia, results should be confirmed by repeat testing. The classification and Diagnosis of Diabetes Diabetes Care 2021; 46: S19-S40. Current interpretive data was last revised 2022. Testing performed by: [address] [address] Calcium 9.2 8.5 - 10.3 mg/dL MARCELINO Comment:Testing performed by : [address] [address] Bilirubin, total 0.5 0.1 - 1.2 mg/dL MARCELINO Comment:Testing performed by : [address] [address] Protein, pl 5.6(L) 6.5 - 8.5 g/dL MARCELINO Comment:Testing performed by : [address] [address] Albumin 3.3(L) 3.5 - 5.0 g/dL MARCELINO Comment:Testing performed by : [address] [address] Alk phos 79 40 - 130 Units/L MARCELINO Comment:Testing performed by : [address] [address] ALT 10 7 - 45 Units/L MARCELINO Comment:Testing performed by : [address] [address] AST 12 10 - 45 Units/L MARCELINO Comment:Testing performed by : [address] [address] Blood 10/11/2024 5:35 AM ELECTRONICS LEAD 10/11/2024 5:47 AM ELECTRONICS LEAD Dl Finney MD LAB BLOOD ORDERABLES Final Result Performing Organization Address [facility] Co de Phone Number MARCELINO [facility] [place] [address] * (ABNORMAL) MRSA Only (Staphylococcus aureus) PCR Nasal (10/10/2024 9:32 PM ELECTRONICS LEAD) Pathologist [facility] [place] PCR Scrn, Methicillin resistant Staphylococcus aureus (MRSA) Detected( A) Not Detected Comment: Interpretive Data Testing performed using Nucleic Acid Amplification with the [employer] Xpert MRSA NxG Assay. This assay detects target DNA from mecA, mecC and the SCCmec insertion site of Staphylococcus aureus using Real-Time PCR and has been cleared by the FDA. Performance characteristics have been verified by the [facility]. Current Interpretive Data was last revised on 2023 Testing performed by: [address] [address] Nasal 10/10/2024 9:32 PM ELECTRONICS LEAD 10/10/2024 9:37 PM ELECTRONICS LEAD us Dl leone MD LAB MICROBIOLOGY - GENERAL ORDERABLES Final Result Performing Organization Address [facility] de Phone Number MARCELINO [address] [address] * POCT glucose (10/10/2024 9:23 PM ELECTRONICS LEAD) [facility] Glucose, POC 175 70 - 199 mg/dL Comment:Testing performed by : [facility], [address] [place] [address]., [address] Glucose comment 1 Use This Result MARCELINO Comment:Testing performed by : [address] [address] Blood 10/10/2024 9:23 PM ELECTRONICS LEAD 10/10/2024 9:23 PM ELECTRONICS LEAD Dl Finney MD LAB POCT ORDERABLES - DEVICE Final Result Performing Organization Address [facility] Co de Phone Number MARCELINO [address] [place] [address] * (ABNORMAL) Troponin T high-sensitivity 6-hour (10/10/2024 8:52 PM ELECTRONICS LEAD) Trop T hs 58(H) <=14 ng/L Comment: Interpretive Data For further hscTnT resources including the diagnostic algorithm and an aid in interpretation, copy and paste this link: [email or web address] Current Interpretive Data last revised 2020. Testing performed by: [address] [address] Trop T hs delta 5 ng/L MARCELINO HAYWOOD Comment:Testing performed by : [address] [address] Trop T hs interp Equivocal MARCELINO HAYWOOD Comment:Testing performed by : [address] [address] Blood 10/10/2024 8:52 PM ELECTRONICS LEAD 10/10/2024 9:14 PM ELECTRONICS LEAD us Iliana Erazo MD LAB BLOOD ORDERABLES F inal Result [facility] [address] [facility] [email or web address] [address] * (ABNORMAL) Troponin T high-sensitivity 2-hour (10/10/2024 4:43 PM ELECTRONICS LEAD) Trop T hs 51(H) <=14 ng/L Comment: Interpretive Data For further hscTnT resources including the diagnostic algorithm and an aid in interpretation, copy and paste this link: [email or web address] Current Interpretive Data last revised 2020. Testing performed by: [address] [address] Trop T hs delta -2 ng/L MARCELINO HAYWOOD Comment:Testing performed by : [address] [address] Trop T hs interp Insignificant MARCELINO HAYWOOD Comment:Testing performed by : [address] [place] [address] Blood 10/10/2024 4:43 PM ELECTRONICS LEAD 10/10/2024 4:45 PM ELECTRONICS LEAD Iliana Erazo MD LAB BLOOD ORDERABLES F inal Result [facility] [address] [facility] Department [place] [address] * (ABNORMAL) Urinalysis reflex to microscopic and culture Urine (10/10/2024 4:16 PM ELECTRONICS LEAD) Color, ur Yellow Yellow Comment:Testing performed by : [address] [address] Clarity, ur Clear Clear MARCELINO Comment:Testing performed by : [address] [address] Specific gravity, ur 1.046(H) 1.003 - 1.030 MARCELINO Comment:Testing performed by : [address] [address] pH, urine 6.0 MARCELINO Comment: Interpretive Data U rine pH is affected by diet, medications, systemic acid-base disturbances, and renal tubular function. pH may affect urinary stone formation. For example, urine pH below 6.0 may help reduce the tendency for calcium phosphate stones and pH greater than 6.0 may reduce the tendency for uric acid stone formation. Source: [employer] Current Interpretive Data was last revised on 2017 Testing performed by: [address] [address] Protein, ur ql 1+(A) Negative MARCELINO Comment:Testing performed by : [address] [id number] Glucose, ur ql Negative Negative MARCELINO Comment:Testing performed by : [address] [address] Ketones, ur Trace(A) Negative MARCELINO Comment:Testing performed by : [address] [address] Bilirubin, ur Negative Negative MARCELINO Comment:Testing performed by : [address], [place]., [address] Blood, ur 3+(A) Negative MARCELINO HAYWOOD Comment:Testing performed by : [address] [address] Urobilinogen, ur <2.0 <2.0 mg/dL MARCELINO HAYWOOD Comment:Testing performed by : [address] [address] Nitrite, ur Positive(A) Negative MARCELINO Comment:Testing performed by : [address] [address] Leukocyte esterase, ur 2+(A) Negative MARCELINO Comment:Testing performed by : [address] [address] UA reflex comment Reflex to microscopic UA will be performed. MARCELINO Comment:Testing performed by : [address] [address] Urine 10/10/2024 4:16 PM ELECTRONICS LEAD 10/10/2024 4:22 PM ELECTRONICS LEAD us Iliana Erazo MD LAB MICROBIOLOGY - GEN ERAL ORDERABLES Final Result MARCELINO [address] [facility] Department of Laboratories [place], [place] [id number] * Blood culture Blood Peripheral (10/10/2024 4:16 PM ELECTRONICS LEAD) Report Final Report: No growth Comment:Testing performed by : [facility], [address] [facility] [place] [address] Blood (Peripheral) 10/10/2024 4:16 PM ELECTRONICS LEAD 10/10/2024 8:08 PM ELECTRONICS LEAD Narrative MARCELINO HAYWOOD - 10/15/2024 7:00 AM ELECTRONICS LEAD Received only aerobic blood culture bottle Draw Blood cultures before administration of Antibiotics Collection->Peripheral 1. Blood cultures are incubated for 4 days on a continuously monitored blood culture system. The first report of a negative culture is issued within 24 hours of receipt of the specimen in the laboratory. 2. Positive culture results are reported as soon as they are detected. 3. The most important factor for detection of microbes in the setting of bloodstream infection is the volume of blood submitted for culture. Failure to collect an optimal blood volume can result in false negative blood cultures. 4. For pediatric patients, the recommended blood volume to collect follows a weight based strategy. See the electronic test catalog for collection instructions. 5. For positive blood cultures, a rapid molecular test may be performed for organism identification using the rehana ePlex blood culture identification panel for gram positive (BCID-GP) and gram negative (BCID-GN) organisms. This nucleic acid amplification test detects microbial DNA in positive blood culture broth. This assay has been cleared by the [place] Food and Drug Administration and its performance characteristics have been verified by the [facility] Microbiology Laboratory. For questions about this culture, contact the Microbiology Laboratory at [phone]. Interpretive data was last revised on 24. Dl leone MD LAB MICROBIOLOGY - GENERAL ORDERABLES Final Result MARCELINO [address] [facility] Department [place] [address] * (ABNORMAL) Urinalysis, microscopic only (10/10/2024 4:16 PM ELECTRONICS LEAD) WBC, ur 21-50(A) 0 - 5 /HPF Comment:Testing performed by : [address] [address] RBC, ur 21-50(A) 0 - 2 /HPF MARCELINO Comment:Testing performed by : [address] [address] Bacteria, ur 4+(A) MARCELINO Comment:Testing performed by : [address] [address] Mucous, ur Present(A) MARCELINO Comment:Testing performed by : [address] [address] Culture Reflex Comment Reflex to urine culture will be performed. MARCELINO Comment:Testing performed by : [address] [address] Urine 10/10/2024 4:16 PM ELECTRONICS LEAD 10/10/2024 4:22 PM ELECTRONICS LEAD us Iliana Erazo MD LAB URINE ORDERABLES F inal Result MARCELINO [address] [facility] Department [place] [address] * (ABNORMAL) Urine culture Urine (10/10/2024 4:16 PM ELECTRONICS LEAD) Report Final Report: Greater than or equal to 100,000 colonies/mL of Escherichia coli Greater than or equal to 100,000 colonies/mL of Escherichia coli #2 (.) Comment:Testing performed by : [facility], [address] [facility] [place] [address] Organism [facility] Organism ESCHERICHIA COLI [facility] Urine 10/10/2024 4:16 PM ELECTRONICS LEAD 10/10/2024 7:55 PM ELECTRONICS LEAD Narrative MARCELINO - 10/12/2024 2:17 PM ELECTRONICS LEAD Urine culture reflexed based upon urinalysis results. Testing performed by [facility] Microbiology Laboratory ([phone]) Organism Antibiotic Method Susceptibility Escherichia coli Ampicillin INTERPRETATION Resistant Escherichia coli Cefazolin INTERPRETATION Susceptible Escherichia coli Nitrofurantoin INTERPRETATION Resistant Escherichia coli Gentamicin INTERPRETATION Susceptible Escherichia coli Trimethoprim with Sulfamethoxazole IN TERPRETATION Susceptible Escherichia coli Meropenem INTERPRETATION Susceptible Escherichia coli Cefepime INTERPRETATION Susceptible Escherichia coli Ciprofloxacin INTERPRETATION Resistant Escherichia coli Ceftazidime INTERPRETATION Susceptible Escherichia coli Ceftriaxone INTERPRETATION Susceptible Escherichia coli Piperacillin/Tazobactam INTERPRETATIO N Susceptible Escherichia coli Cephalexin INTERPRETATION Susceptible Escherichia coli Cefuroxime-axetil INTERPRETATION Susceptible Escherichia coli Cefdinir INTERPRETATION Susceptible Escherichia coli Ampicillin INTERPRETATION Resistant Escherichia coli Cefazolin INTERPRETATION Resistant Escherichia coli Nitrofurantoin INTERPRETATION Resistant Escherichia coli Gentamicin INTERPRETATION Susceptible Escherichia coli Trimethoprim with Sulfamethoxazole IN TERPRETATION Susceptible Escherichia coli Meropenem INTERPRETATION Susceptible Escherichia coli Cefepime INTERPRETATION Susceptible Escherichia coli Ciprofloxacin INTERPRETATION Resistant Escherichia coli Ceftazidime INTERPRETATION Susceptible Escherichia coli Ceftriaxone INTERPRETATION Susceptible Escherichia coli Piperacillin/Tazobactam INTERPRETATIO N Susceptible Escherichia coli Cephalexin INTERPRETATION Resistant Escherichia coli Cefuroxime-axetil INTERPRETATION Resistant Escherichia coli Cefdinir INTERPRETATION Resistant us Iliana Erazo MD LAB MICROBIOLOGY - GEN ERAL ORDERABLES Final Result MARCELINO MH [address] [facility] Department [place] [address] * CT Chest Abdomen Pelvis W Contrast (10/10/2024 3:34 PM ELECTRONICS LEAD) Anatomical Region Laterality Modality Body N/A Computed Tomogra phy 10/10/2024 3:44 PM ELECTRONICS LEAD Narrative 10/10/2024 4:29 PM ELECTRONICS LEAD EXAM DESCRIPTION: CT CHEST ABDOMEN PELVIS W CONTRAST REASON FOR STUDY: Sepsis Pt presents to ED accompanied by daughter for report of decreased mentation that started yesterday. Daughter states that pt was recently admitted for AMS r/t UTI. Pt is alert to self. When asking the year and month she states 2021. Pt endorses jose miguel lower leg weakness/pain. TECHNIQUE: CT scan of the chest, abdomen, and pelvis performed with intravenous and without oral contrast using helical scanning technique with dynamic intravenous contrast injection. Reconstructed coronal and sagittal MPR images reviewed. All images stored on PACS. Automated exposure control was used as a dose optimization technique for this examination. CONTRAST TYPE/DOSE: 100mL of IOVERSOL 350 MG IODINE/ML INTRAVENOUS SYRINGE injected via intravenous COMPARISON: None available FINDINGS: CHEST LUNGS: The central airway is patent. Minimal bronchial wall thickening and peribronchial airspace opacity is seen to the left lower lobe. This may be infectious in etiology. PLEURA: No effusion. No pneumothorax. MEDIASTINUM/FAUSTINO: No identified masses or abnormal nodes. HEART: Heart size is normal with no pericardial effusion. Extensive coronary artery calcified atherosclerosis. VASCULATURE CHEST: No thoracic aortic aneurysm or dissection. AXILLA: No adenopathy. CHEST WALL: No masses. No subcutaneous air. HARDWARE/LINES/TUBES: None. MUSCULOSKELETAL CHEST: No significant abnormality. ABDOMEN/PELVIS LIVER: Normal size. No identified cystic or solid masses. GALLBLADDER: Surgically absent. BILE DUCTS: No intrahepatic or extrahepatic ductal dilatation. SPLEEN: Normal size. No focal lesions. PANCREAS: No identified cystic or solid masses. No significant calcifications. No adjacent inflammation or peripancreatic fluid collections. Pancreatic duct not dilated. ADRENALS: Normal. KIDNEYS/URINARY TRACT: No identified significant cystic or solid masses. No visualized stones. No hydronephrosis or hydroureter. Symmetric enhancement. Urinary bladder is unremarkable. GI: Small hiatal hernia. No dilated bowel loops. No obvious wall thickening. Normal appendix. No significant diverticular disease. PERITONEUM: No ascites or free air. RETROPERITONEUM: No mass or adenopathy. REPRODUCTIVE: No significant abnormality. VASCULATURE ABDOMEN: No abdominal aortic aneurysm. Extensive calcified atherosclerosis. High-grade ostial stenosis of the SMA. MUSCULOSKELETAL ABDOMEN PELVIS: Compression deformity superior endplate of L1-age indeterminate. Intrapedicular screws with paired spinal rods are seen at L4 and L5. Grade 1 anterolisthesis of L5 with respect S1. OTHER: A spinal stimulator device is seen. This IMPRESSION: Minimal bronchial wall thickening and peribronchial airspace opacity is seen to the left lower lobe. This may be infectious in etiology. Small hiatal hernia. Compression deformity superior endplate of L1-age indeterminate. Extensive calcified atherosclerosis. High-grade ostial stenosis of the SMA. THIS IS AN ELECTRONICALLY VERIFIED FINAL REPORT 10/10/2024 4:29 PM - Electronically signed by Scott Shea M.D. JA: RAYA Report ID: [id number] Reading Location: [id number] Procedure Note Scott Shea MD - 10/10/2024 EXAM DESCRIPTION: CT CHEST ABDOMEN PELVIS W CONTRAST REASON FOR STUDY: Sepsis Pt presents to ED accompanied by daughter for report of decreasedmentation that started yesterday. Daughter states that pt was recently admitted forAMS r/t UTI. Pt is alert to self. When asking the year and month she states 2021. Pt endorses jose miguel lower leg weakness/pain. TECHNIQUE: CT scan of the chest, abdomen, and pelvis performed with intravenous and without oral contrast using helical scanning techniquewith dynamic intravenous contrast injection. Reconstructed coronal and sagittalMPR images reviewed. All images stored on PACS. Automated exposure control was used as a dose optimization technique for this examination. CONTRAST TYPE/DOSE: 100mL of IOVERSOL 350 MG IODINE/ML INTRAVENOUS SYRINGE injected via intravenous COMPARISON: None available FINDINGS: CHEST LUNGS: The central airway is patent. Minimal bronchial wall thickeningand peribronchial airspace opacity is seen to the left lower lobe. This maybe infectious in etiology. PLEURA: No effusion. No pneumothorax. MEDIASTINUM/FAUSTINO: No identified masses or abnormal nodes. HEART: Heart size is normal with no pericardial effusion. Extensive coronary artery calcified atherosclerosis. VASCULATURE CHEST: No thoracic aortic aneurysm or dissection. AXILLA: No adenopathy. CHEST WALL: No masses. No subcutaneous air. HARDWARE/LINES/TUBES: None. MUSCULOSKELETAL CHEST: No significant abnormality. ABDOMEN/PELVIS LIVER: Normal size. No identified cystic or solid masses. GALLBLADDER: Surgically absent. BILE DUCTS: No intrahepatic or extrahepatic ductal dilatation. SPLEEN: Normal size. No focal lesions. PANCREAS: No identified cystic or solid masses. No significant calcifications. No adjacent inflammation or peripancreatic fluidcollections. Pancreatic duct not dilated. ADRENALS: Normal. KIDNEYS/URINARY TRACT: No identified significant cystic or solid masses.No visualized stones. No hydronephrosis or hydroureter. Symmetricenhancement. Urinary bladder is unremarkable. GI: Small hiatal hernia. No dilated bowel loops. No obvious wallthickening. Normal appendix. No significant diverticular disease. PERITONEUM: No ascites or free air. RETROPERITONEUM: No mass or adenopathy. REPRODUCTIVE: No significant abnormality. VASCULATURE ABDOMEN: No abdominal aortic aneurysm. Extensive calcified atherosclerosis. High-grade ostial stenosis of the SMA. MUSCULOSKELETAL ABDOMEN PELVIS: Compression deformity superior endplateof L1-age indeterminate. Intrapedicular screws with paired spinal rods are seen at L4 and L5.Grade 1 anterolisthesis of L5 with respect S1. OTHER: A spinal stimulator device is seen. This IMPRESSION: Minimal bronchial wall thickening and peribronchial airspace opacity isseen to the left lower lobe. This may be infectious in etiology. Small hiatal hernia. Compression deformity superior endplate of L1-age indeterminate. Extensive calcified atherosclerosis. High-grade ostial stenosis of theSMA. THIS IS AN ELECTRONICALLY VERIFIED FINAL REPORT 10/10/2024 4:29 PM - Electronically signed by Scott Shea M.D. JA: RAYA Report ID: [id number] Reading Location: [place] [address] Iliana Erazo MD IMG CT PROCEDURES Gena l Result * (ABNORMAL) Troponin T high-sensitivity series (baseline, 2hr, 4hr, 6hr) (10/10/2024 2:54 PM ELECTRONICS LEAD) Pathologist [facility] [place] Trop T hs 53(H) <=14 ng/L Comment: Interpretive Data For further hscTnT resources including the diagnostic algorithm and an aid in interpretation, copy and paste this link: [email or web address].testcatalog.org/show/[email or web address] Current Interpretive Data last revised 2020. Testing performed by: [address] [address] Blood 10/10/2024 2:54 PM ELECTRONICS LEAD 10/10/2024 3:07 PM ELECTRONICS LEAD us Iliana Erazo MD LAB BLOOD ORDERABLES F inal Result [place] [address] [facility] Department [place] [address] * (ABNORMAL) Influenza A/B, RSV, and COVID-19 PCR Nasopharyngeal (10/10/2024 2:54 PM ELECTRONICS LEAD) [facility] COVID-19 RNA Negative Negative Comment:Testing performed by : [address] [address] Influenza A RNA Positive(A) Negative MARCELINO Comment:Testing performed by : [address] [address] Influenza B RNA Negative Negative [facility] Comment:Testing performed by : [address] [address] RSV RNA Negative Negative [facility] Comment: Interpretive data: Testing performed by [facility]. This test is performed using the [employer] Xpert Xpress CoV-2/Flu/RSV plus assay. This is a multiplex, real-time reverse transcriptase PCR assay intended for the qualitative detection of nucleic acid from SARS-CoV-2, influenza A, influenza B, and respiratory syncytial virus. This assay has been cleared by the [place] Food and Drug administration. The performance characteristics have been verified by the [facility]. Results must be considered in the clinical context, and a negative result does not rule out infection. Interpretive Data last revised 2023 Testing performed by: [address] [address] Nasopharyngeal 10/10/2024 2: 54 PM ELECTRONICS LEAD 10/10/2024 3:08 PM ELECTRONICS LEAD Narrative MARCELINO - 10/10/2024 3:56 PM ELECTRONICS LEAD Is the Patient experiencing symptoms consistent with COVID?->Yes Iliana Erazo MD LAB MICROBIOLOGY - GEN ERAL ORDERABLES Final Result Performing Organization Address [facility]/ZIP Co de Phone Number [address] [address] * Sepsis Lactate w/ Reflex (10/10/2024 2:54 PM ELECTRONICS LEAD) Sepsis Lactate 1.9 0.7 - 2.0 mmol/L Comment:Testing performed by : [address] [address] Blood 10/10/2024 2:54 PM ELECTRONICS LEAD 10/10/2024 3:07 PM ELECTRONICS LEAD us Morgan Daly MD LAB BLOOD ORDERABLE S Final Result Performing Organization Address [facility] Co de Phone Number [address] [address] * (ABNORMAL) Sepsis Lactate w/ Reflex (10/10/2024 12:10 PM ELECTRONICS LEAD) Sepsis Lactate 2.5(C) 0.7 - 2.0 mmol/L Comment: Critical Result called to and read back by [email or web address], DATE: 2024-10-10 13:23:42 BY: [id number] Testing performed by: [address] [address] Blood 10/10/2024 12:1 0 PM ELECTRONICS LEAD 10/10/2024 12:20 PM ELECTRONICS LEAD us Iliana Erazo MD LAB BLOOD ORDERABLES F inal Result Performing Organization Address [facility] Co de Phone Number MARCELINO [facility] [place] [address] * (ABNORMAL) eGFR (10/10/2024 12:10 PM ELECTRONICS LEAD) eGFR 46(L) >=60 mL/min/1. 73 m2 Comment: Interpretive Data Reference Interval Normal >/= 90 mL/min/1.73m2 Mildly decreased* 60 - 89 mL/min/1.73m2 Mildly to moderately decreased 45 - 59 mL/min/1.73m2 Moderately to severely decreased 30 - 44 mL/min/1.73m2 Severely decreased 15 - 29 mL/min/1.73m2 Kidney Failure < 15 mL/min/1.73m2 *Relative to young adult level Estimated glomerular filtration rate is determined by the 2020 CKD-EPI equation recommended by the National Kidney Foundation (A Unifying Approach to GFR Estimation: Recommendations of the NKF-ASK Task Force on Reassessing the Inclusion of Race in Diagnosing Kidney Disease, JASN 2020). The CKD-EPI equation should not be used for patients with unstable renal function and has not been validated in children and those over 70. Current interpretive data was last reviewed 2021. Testing performed by: [address] [address] Blood 10/10/2024 12:1 0 PM ELECTRONICS LEAD 10/10/2024 12:20 PM ELECTRONICS LEAD us Iliana Erazo MD LAB BLOOD ORDERABLES F inal Result Performing Organization Address City/[facility]/ZIP Co de Phone Number MARCELINO [address] [facility] [place] [address] * (ABNORMAL) Differential, auto (10/10/2024 12:10 PM ELECTRONICS LEAD) Neutrophil abs 13.2(H) 1.5 - 6.5 K/cumm Comment:Testing performed by : [address] [address] Imm gran abs 0.2(H) 0.0 - 0.1 K/cumm [facility] Comment:Testing performed by : [address] [address] Lymphocyte abs 1.4 0.8 - 3.3 K/cumm [facility] Comment:Testing performed by : [address] [address] Monocyte abs 0.9(H) 0.2 - 0.8 K/cumm [facility] Comment:Testing performed by : [address], [place]., [address] Eosinophil abs 0.1 0.0 - 0.5 K/cumm [facility] Comment:Testing performed by : [address] [address] Basophil abs 0.0 0.0 - 0.1 K/cumm [facility] Comment:Testing performed by : [address] [address] Neutrophil pct 83.9 % [facility] Comment: Interpretive Data Percent cell count reference ranges are not reported, since discordance with absolute values may lead to misinterpretation of CBC data. Current Interpretive Data was last revised on 2017. Testing performed by: [address] [address] Imm gran pct 1.1 % [facility] Comment: Interpretive Data Percent cell count reference ranges are not reported, since discordance with absolute values may lead to misinterpretation of CBC data. Current Interpretive Data was last revised on 2017. Testing performed by: [address] [address] Lymphocyte pct 8.6 % [facility] Comment: Interpretive Data Percent cell count reference ranges are not reported, since discordance with absolute values may lead to misinterpretation of CBC data. Current Interpretive Data was last revised on 2017. Testing performed by: [address] [address] Monocyte pct 5.4 % [facility] Comment: Interpretive Data Percent cell count reference ranges are not reported, since discordance with absolute values may lead to misinterpretation of CBC data. Current Interpretive Data was last revised on 2017. Testing performed by: [address] [address] Eosinophil pct 0.7 % MARCELINO HAYWOOD Comment: Interpretive Data Percent cell count reference ranges are not reported, since discordance with absolute values may lead to misinterpretation of CBC data. Current Interpretive Data was last revised on 2017. Testing performed by: [address] [address] Basophil pct 0.3 % MARCELINO HAYWOOD Comment: Interpretive Data Percent cell count reference ranges are not reported, since discordance with absolute values may lead to misinterpretation of CBC data. Current Interpretive Data was last revised on 2017. Testing performed by: [address] [address] Blood 10/10/2024 12:1 0 PM ELECTRONICS LEAD 10/10/2024 12:20 PM ELECTRONICS LEAD Iliana Erazo MD LAB BLOOD ORDERABLES F inal Result MARCELINO [facility] Department [place] [address] * (ABNORMAL) CBC with auto differential (10/10/2024 12:10 PM ELECTRONICS LEAD) WBC 15.7(H) 3.8 - 9.9 K/cumm Comment:Testing performed by : [address] [address] Hgb 12.7 11.9 - 15.5 g/dL MARCELINO HAYWOOD Comment:Testing performed by : [address] [address] Hct 41.3 35.6 - 45.5 % MARCELINO HAYWOOD Comment:Testing performed by : [address] [address] Plt 434(H) 150 - 400 K/cumm MARCELINO HAYWOOD Comment:Testing performed by : [address] [address] MPV 10.0 9.1 - 12.3 fL MARCELINO HAYWOOD Comment:Testing performed by : [address] [place] [address] RBC 4.78 3.90 - 5.20 M/cumm MARCELINO Comment:Testing performed by : [address] [address] MCV 86.4 81.3 - 96.4 fL MARCELINO HAYWOOD Comment:Testing performed by : [address] [address] MCH 26.6(L) 27.1 - 33.3 pg MARCELINO Comment:Testing performed by : [address] [address] MCHC 30.8(L) 32.3 - 35.7 g/dL MARCELINO Comment:Testing performed by : [address], [address] RDW CV 17.4(H) 11.1 - 14.9 % MARCELINO Comment:Testing performed by : [address], [address] RDW SD 54.4(H) 35.7 - 48.1 fL MARCELINO Comment:Testing performed by : [address] [address] NRBC abs 0.00 0.00 - 0.01 K/cumm MARCELINO Comment:Testing performed by : [address] [address] Blood 10/10/2024 12:1 0 PM ELECTRONICS LEAD 10/10/2024 12:20 PM ELECTRONICS LEAD us Iliana Erazo MD LAB BLOOD ORDERABLES F inal Result [facility] [address] [facility] Department [place] [address] * (ABNORMAL) Comprehensive metabolic panel (10/10/2024 12:10 PM ELECTRONICS LEAD) Sodium 135 135 - 145 mmol/L Comment:Testing performed by : [address], [address] Potassium, pl 4.0 3.3 - 4.9 mmol/L MARCELINO Comment: Hemolyzed; Potassium value may be falsely elevated by as much as 1.0 mmol/L. Suggest redraw and reanalysis. Testing performed by: [address] [address] Chloride 96(L) 97 - 110 mmol/L MARCELINO Comment:Testing performed by : [facility], [address] [place] [address], [place]., [address] CO2 26 22 - 32 mmol/L MARCELINO Comment:Testing performed by : [address], [place]., [address] Anion gap 13 2 - 15 mmol/L [facility] Comment:Testing performed by : [address], [place]., [address] BUN 31(H) 6 - 25 mg/dL [facility] Comment:Testing performed by : [address], [place]., [address] Creatinine 1.17(H) 0.60 - 1.10 mg/dL [facility] Comment:Testing performed by : [address] [address] Glucose 234(H) 70 - 199 mg/dL [facility] Comment: Interpretive Data Fasting glucose >/= 126 mg/dl is diagnostic for diabetes. Fasting is defined as no caloric intake for at least 8 hours. Fasting glucose between 100 mg/dl to 125 mg/dl is diagnostic of prediabetes. In a patient with classic symptoms of hyperglycemia or hyperglycemic crisis, a random glucose >/= 200 mg/dl is diagnostic for diabetes. In the absence of unequivocal hyperglycemia, results should be confirmed by repeat testing. The classification and Diagnosis of Diabetes Diabetes Care 202; 46: S19-S40. Current interpretive data was last revised 2022. Testing performed by: [address] [address] Calcium 10.6(H) 8.5 - 10.3 mg/dL [facility] Comment:Testing performed by : [address] [address] Bilirubin, total 0.5 0.1 - 1.2 mg/dL [facility] Comment:Testing performed by : [address] [address] Protein, pl 7.2 6.5 - 8.5 g/dL MARCELINO Comment:Testing performed by : [address] [address] Albumin 4.2 3.5 - 5.0 g/dL MARCELINO Comment:Testing performed by : [address], [place]., [address] Alk phos 101 40 - 130 Units/L MARCELINO Comment:Testing performed by : [address] [address] ALT 19 7 - 45 Units/L MARCELINO Comment:Testing performed by : [address] [address] AST 26 10 - 45 Units/L MARCELINO Comment: Hemolyzed; result may be falsely elevated Testing performed by: [address] [address] Blood 10/10/2024 12:1 0 PM ELECTRONICS LEAD 10/10/2024 12:20 PM ELECTRONICS LEAD us Iliana Erazo MD LAB BLOOD ORDERABLES F inal Result [facility] [address] [facility] Department of Laboratories [place], [place] [id number] * CT Head WO Contrast (10/10/2024 11:40 AM ELECTRONICS LEAD) Anatomical Region Laterality Modality Head and Neck N/A Computed Tomogra phy 10/10/2024 12:1 8 PM ELECTRONICS LEAD Narrative 10/10/2024 12:23 PM ELECTRONICS LEAD EXAM DESCRIPTION: CT HEAD WO CONTRAST REASON FOR STUDY: Mental status change, unknown cause Pt presents to ED accompanied by daughter for report of decreased mentation that started yesterday. Daughter states that pt was recently admitted for AMS r/t UTI. Pt is alert to self. When asking the year and month she states 2021. Pt endorses jose miguel lower leg weakness/pain. TECHNIQUE: Axial images acquired through the brain without intravenous contrast. Sagittal and coronal images reconstructed. Images stored on PACS. Automated exposure control was used as a dose optimization technique for this examination. COMPARISON: 12/24/2023, 10/01/2024 08/01/2019 FINDINGS: Beam hardening artifact from the skull base obscures evaluation of the brainstem. Motion degraded examination. Findings made within these confines. SURGICAL/SUPPORT DEVICES: None. BRAIN PARENCHYMA: No acute large vascular territory infarction. No acute intraparenchymal hemorrhage. No mass or significant mass effect. Patchy periventricular hypodensities which are nonspecific but can be seen with mild chronic microvascular ischemic changes. Generalized parenchymal volume loss. EXTRA-AXIAL SPACES: No hyperdense fluid collections. VENTRICLES: Ex vacuo dilatation of the ventricles without acute hydrocephalus. BONES/SOFT TISSUES: Advanced degenerative changes of the bilateral temporomandibular joints. Partially visualized fixation hardware of the left mandible with associated streak artifact. PARANASAL SINUSES: Decreased mucosal thickening of the left sphenoid sinus. ORBITS: Bilateral lens replacement. MASTOIDS/MIDDLE EAR: Predominately clear. OTHER: Calcified atherosclerotic changes of the intracranial vasculature. IMPRESSION: No acute intracranial abnormality. Chronic changes as above. THIS IS AN ELECTRONICALLY VERIFIED FINAL REPORT 10/10/2024 12:23 PM - Electronically signed by Mitchell Gardiner M.D. NS: NS Report ID: [id number] Reading Location: [id number] Procedure Note Mitchell Gardiner MD - 10/10/2024 EXAM DESCRIPTION: CT HEAD WO CONTRAST REASON FOR STUDY: Mental status change, unknown cause Pt presents to ED accompanied by daughter for report of decreasedmentation that started yesterday. Daughter states that pt was recently admitted forAMS r/t UTI. Pt is alert to self. When asking the year and month she states 2021. Pt endorses jose miguel lower leg weakness/pain. TECHNIQUE: Axial images acquired through the brain without intravenous contrast. Sagittal and coronal images reconstructed. Images stored onPACS. Automated exposure control was used as a dose optimization technique forthis examination. COMPARISON: 12/24/2023, 10/01/2024 08/01/2019 FINDINGS: Beam hardening artifact from the skull base obscures evaluationof the brainstem. Motion degraded examination. Findings made within these confines. SURGICAL/SUPPORT DEVICES: None. BRAIN PARENCHYMA: No acute large vascular territory infarction. Noacute intraparenchymal hemorrhage. No mass or significant mass effect.Patchy periventricular hypodensities which are nonspecific but can be seen withmild chronic microvascular ischemic changes. Generalized parenchymal volumeloss. EXTRA-AXIAL SPACES: No hyperdense fluid collections. VENTRICLES: Ex vacuo dilatation of the ventricles without acute hydrocephalus. BONES/SOFT TISSUES: Advanced degenerative changes of the bilateral temporomandibular joints. Partially visualized fixation hardware of theleft mandible with associated streak artifact. PARANASAL SINUSES: Decreased mucosal thickening of the left sphenoidsinus. ORBITS: Bilateral lens replacement. MASTOIDS/MIDDLE EAR: Predominately clear. OTHER: Calcified atherosclerotic changes of the intracranialvasculature. IMPRESSION: No acute intracranial abnormality. Chronic changes as above. THIS IS AN ELECTRONICALLY VERIFIED FINAL REPORT 10/10/2024 12:23 PM - Electronically signed by Mitchell Gardiner M.D. NS: NS Report ID: [id number] Reading Location: [id number] Carrie MEANS IMG CT PROCEDURES Final Result * XR Chest 1 Vw Portable (if patient condition/safety warrant portable) (10/10/2024 11:25 AM ELECTRONICS LEAD) Anatomical Region Laterality Modality Body, Chest N/A Computed Radiogr aphy 10/10/2024 11:4 0 AM ELECTRONICS LEAD Narrative 10/10/2024 11:45 AM ELECTRONICS LEAD EXAM DESCRIPTION: XR CHEST 1 VIEW REASON FOR STUDY: sepsis r/o Altered mental status that began yesterday TECHNIQUE: Single radiographic view of the chest. COMPARISON: 09/30/2024, 06/13/2023 08/28/2021 04/15/2020 FINDINGS: Suboptimal examination due to patient positioning, rotation, and technique. Findings made within these confines. LINES/TUBES: None. LUNGS: Mild left basilar patchy and linear opacities with evidence of volume loss suggestive atelectasis. HEART/MEDIASTINUM: Unchanged cardiomediastinal contours. Small to moderate hiatal hernia. Tortuous thoracic aorta. BONES/SOFT TISSUES: Degenerative changes of the right glenohumeral joint. No acute osseous abnormality. IMPRESSION: Mild left basilar opacities favored to reflect atelectasis. THIS IS AN ELECTRONICALLY VERIFIED FINAL REPORT 10/10/2024 11:45 AM - Electronically signed by Mitchell Gardiner M.D. NS: NS Report ID: [id number] Reading Location: [id number] Procedure Note Mitchell Gardiner MD - 10/10/2024 EXAM DESCRIPTION: XR CHEST 1 VIEW REASON FOR STUDY: sepsis r/o Altered mental status that began yesterday TECHNIQUE: Single radiographic view of the chest. COMPARISON: 09/30/2024, 06/13/2023 08/28/2021 04/15/2020 FINDINGS: Suboptimal examination due to patient positioning, rotation, andtechnique. Findings made within these confines. LINES/TUBES: None. LUNGS: Mild left basilar patchy and linear opacities with evidence ofvolume loss suggestive atelectasis. HEART/MEDIASTINUM: Unchanged cardiomediastinal contours. Small tomoderate hiatal hernia. Tortuous thoracic aorta. BONES/SOFT TISSUES: Degenerative changes of the right glenohumeral joint.No acute osseous abnormality. IMPRESSION: Mild left basilar opacities favored to reflect atelectasis. THIS IS AN ELECTRONICALLY VERIFIED FINAL REPORT 10/10/2024 11:45 AM - Electronically signed by Mitchell Gardiner M.D. NS: NS Report ID: [id number] Reading Location: [id number] Iliana Erazo MD IMG XR PROCEDURES Gena l Result * ECG 12 lead (10/10/2024 11:02 AM ELECTRONICS LEAD) Ventricular Rate EKG/Min 99 BPM [facility] Atrial Rate 99 BPM [facility] NV-Interval (MSEC) 156 ms [facility] QRS-Interval (MSEC) 90 ms [facility] QT-Interval (MSEC) 364 ms [facility] QTc 467 ms [facility] P [place] 63 degrees [facility] R [place] -25 degrees [facility] T [place] 130 degrees [facility] Diagnosis Normal sinus rhythm Voltage criteria for left ventricular hypertrophy 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 ([id number]) on 10/10/2024 11:04:14 PM [facility] 10/10/2024 11:0 2 AM ELECTRONICS LEAD 10/10/2024 11:04 PM ELECTRONICS LEAD Iliana Erazo MD ECG ORDERABLES Final Result Performing Organization Address City/[facility]/ZIP Co de Phone Number [facility] * (ABNORMAL) POCT glucose (10/10/2024 10:38 AM ELECTRONICS LEAD) Glucose, POC 232(H) 70 - 199 mg/dL Comment:Testing performed by : [facility], [address] [place] [address]., [id number] Glucose comment 1 Use This Result MARCELINO Comment:Testing performed by : [facility], [address] [place] [address]., [id number] Blood 10/10/2024 10:3 8 AM ELECTRONICS LEAD 10/10/2024 10:38 AM ELECTRONICS LEAD us Notinfile Unknown LAB POCT ORDERABLES - DEVICE F inal Result MARCELINO [address] [facility] Department [place] [address] * POCT glucose (10/08/2024 11:13 AM ELECTRONICS LEAD) Glucose, POC 177 70 - 199 mg/dL Glucose comment 1 Use This Result MARCELINO Glucose comment 2 RN/MD Notified MARCELINO HAYWOOD Blood 10/08/2024 11:1 3 AM ELECTRONICS LEAD 10/08/2024 11:13 AM ELECTRONICS LEAD Result [facility] Eddie Montoya MD LAB POCT ORDERABLES - DE VICE Final Result Performing Organization Address City/[facility] Co de Phone Number MARCELINO [address] [address] * POCT glucose (10/08/2024 8:49 AM ELECTRONICS LEAD) Glucose, POC 107 70 - 199 mg/dL Blood 10/08/2024 8:49 AM ELECTRONICS LEAD 10/08/2024 8:49 AM ELECTRONICS LEAD Result [facility] Eddie Montoya MD LAB POCT ORDERABLES - DE VICE Final Result Performing Organization Address [facility] Co de Phone Number MARCELINO [address] [address] * (ABNORMAL) POCT glucose (10/07/2024 7:26 PM ELECTRONICS LEAD) Glucose, POC 285(H) 70 - 199 mg/dL Glucose comment 1 Use This Result [facility] Glucose comment 2 RN/MD Notified [facility] Blood 10/07/2024 7:26 PM ELECTRONICS LEAD 10/07/2024 7:26 PM ELECTRONICS LEAD Result [facility] Eddie Montoya MD LAB POCT ORDERABLES - DE VICE Final Result Performing Organization Address [facility] Co de Phone Number [address] [address] * (ABNORMAL) POCT glucose (10/07/2024 4:03 PM ELECTRONICS LEAD) Glucose, POC 242(H) 70 - 199 mg/dL Glucose comment 1 Use This Result [facility] Glucose comment 2 RN/MD Notified [facility] Blood 10/07/2024 4:03 PM ELECTRONICS LEAD 10/07/2024 4:03 PM ELECTRONICS LEAD Eddie Montoya MD LAB POCT ORDERABLES - DE VICE Final Result Performing Organization Address [facility] Co de Phone Number MARCELINO [address] [address] * POCT glucose (10/07/2024 11:23 AM ELECTRONICS LEAD) Glucose, POC 170 70 - 199 mg/dL Glucose comment 1 Use This Result [facility] Glucose comment 2 RN/MD Notified MARCELINO Blood 10/07/2024 11:2 3 AM ELECTRONICS LEAD 10/07/2024 11:23 AM ELECTRONICS LEAD Eddie Montoya MD LAB POCT ORDERABLES - DE VICE Final Result Performing Organization Address [facility] Co de Phone Number MARCELINO [address] [address] * POCT glucose (10/07/2024 7:19 AM ELECTRONICS LEAD) Glucose, POC 107 70 - 199 mg/dL Glucose comment 1 Use This Result [facility] Glucose comment 2 RN/MD Notified MARCELINO Blood 10/07/2024 7:19 AM ELECTRONICS LEAD 10/07/2024 7:19 AM ELECTRONICS LEAD Eddie Montoya MD LAB POCT ORDERABLES - DE VICE Final Result Performing Organization Address [facility] Co de Phone Number MARCELINO [address] [employer] [place] [address] * (ABNORMAL) POCT glucose (10/06/2024 8:43 PM ELECTRONICS LEAD) Glucose, POC 216(H) 70 - 199 mg/dL Glucose comment 1 Use This Result [facility] Glucose comment 2 RN/MD Notified MARCELINO Blood 10/06/2024 8:43 PM ELECTRONICS LEAD 10/06/2024 8:43 PM ELECTRONICS LEAD Eddie Montoya MD LAB POCT ORDERABLES - DE VICE Final Result Performing Organization Address [facility] Co de Phone Number MARCELINO [address] [address] * (ABNORMAL) POCT glucose (10/06/2024 4:13 PM ELECTRONICS LEAD) Glucose, POC 237(H) 70 - 199 mg/dL Glucose comment 1 Use This Result [facility] Glucose comment 2 RN/MD Notified MARCELINO Blood 10/06/2024 4:13 PM ELECTRONICS LEAD 10/06/2024 4:13 PM ELECTRONICS LEAD us Eddie Montoya MD LAB POCT ORDERABLES - DE VICE Final Result Performing Organization Address [facility] Co de Phone Number [facility] [address] * (ABNORMAL) POCT glucose (10/06/2024 11:39 AM ELECTRONICS LEAD) Glucose, POC 245(H) 70 - 199 mg/dL Glucose comment 1 Use This Result [facility] Glucose comment 2 RN/ Notified MARCELINO Blood 10/06/2024 11:3 9 AM ELECTRONICS LEAD 10/06/2024 11:39 AM ELECTRONICS LEAD us Eddie Montoya MD LAB POCT ORDERABLES - DE VICE Final Result Performing Organization Address [facility] Co de Phone Number [address] [employer] [place] [address] * POCT glucose (10/06/2024 7:33 AM ELECTRONICS LEAD) Glucose, POC 104 70 - 199 mg/dL Glucose comment 1 Use This Result [facility] Glucose comment 2 RN/MD Notified MARCELINO Blood 10/06/2024 7:33 AM ELECTRONICS LEAD 10/06/2024 7:33 AM ELECTRONICS LEAD us Eddie Montoya MD LAB POCT ORDERABLES - DE VICE Final Result Performing Organization Address [facility] Co de Phone Number MARCELINO [address] [address] * (ABNORMAL) POCT glucose (10/05/2024 7:48 PM ELECTRONICS LEAD) Glucose, POC 227(H) 70 - 199 mg/dL Glucose comment 1 Use This Result [facility] Glucose comment 2 RN/MD Notified [facility] Blood 10/05/2024 7:48 PM ELECTRONICS LEAD 10/05/2024 7:48 PM ELECTRONICS LEAD us Eddie Montoya MD LAB POCT ORDERABLES - DE VICE Final Result Performing Organization Address [facility] Co de Phone Number MARCELINO [address] [address] * (ABNORMAL) POCT glucose (10/05/2024 3:29 PM ELECTRONICS LEAD) Glucose, POC 256(H) 70 - 199 mg/dL Glucose comment 1 Use This Result [facility] Glucose comment 2 RN/ Notified MARCELINO Blood 10/05/2024 3:29 PM ELECTRONICS LEAD 10/05/2024 3:29 PM ELECTRONICS LEAD us Eddie Montoya MD LAB POCT ORDERABLES - DE VICE Final Result Performing Organization Address [facility] Co de Phone Number MARCELINO [address] [employer] [place] [address] * POCT glucose (10/05/2024 11:29 AM ELECTRONICS LEAD) Glucose, POC 132 70 - 199 mg/dL Glucose comment 1 Use This Result [facility] Glucose comment 2 RN/ Notified MARCELINO Blood 10/05/2024 11:2 9 AM ELECTRONICS LEAD 10/05/2024 11:29 AM ELECTRONICS LEAD Eddie Montoya MD LAB POCT ORDERABLES - DE VICE Final Result Performing Organization Address [facility] Co de Phone Number MARCELINO [address] [address] * POCT glucose (10/05/2024 7:29 AM ELECTRONICS LEAD) Glucose, POC 93 70 - 199 mg/dL Glucose comment 1 Use This Result MARCELINO Glucose comment 2 RN/MD Notified MARCELINO Blood 10/05/2024 7:29 AM ELECTRONICS LEAD 10/05/2024 7:29 AM ELECTRONICS LEAD Eddie Montoya MD LAB POCT ORDERABLES - DE VICE Final Result Performing Organization Address [facility] Co de Phone Number MARCELINO [address] [address] * POCT glucose (10/04/2024 8:48 PM ELECTRONICS LEAD) Glucose, POC 198 70 - 199 mg/dL Glucose comment 1 Use This Result [facility] Glucose comment 2 RN/MD Notified [facility] Blood 10/04/2024 8:48 PM ELECTRONICS LEAD 10/04/2024 8:48 PM ELECTRONICS LEAD Eddie Montoya MD LAB POCT ORDERABLES - DE VICE Final Result Performing Organization Address [facility] Co de Phone Number MARCELINO [address] [place] [address] * (ABNORMAL) POCT glucose (10/04/2024 5:36 PM ELECTRONICS LEAD) Glucose, POC 273(H) 70 - 199 mg/dL Blood 10/04/2024 5:36 PM ELECTRONICS LEAD 10/04/2024 5:36 PM ELECTRONICS LEAD Eddie Monotya MD LAB POCT ORDERABLES - DE VICE Final Result Performing Organization Address City/[facility]/ZIP Co de Phone Number MARCELINO [address] [place] [address] * (ABNORMAL) POCT glucose (10/04/2024 3:37 PM ELECTRONICS LEAD) Glucose, POC 260(H) 70 - 199 mg/dL Glucose comment 1 Use This Result [facility] Glucose comment 2 RN/ Notified MARCELINO Blood 10/04/2024 3:37 PM ELECTRONICS LEAD 10/04/2024 3:37 PM ELECTRONICS LEAD Eddie Montoya MD LAB POCT ORDERABLES - DE VICE Final Result Performing Organization Address City/[facility]/ZIP Co de Phone Number [facility] [employer] [place] [address] * (ABNORMAL) POCT glucose (10/04/2024 11:20 AM ELECTRONICS LEAD) Glucose, POC 228(H) 70 - 199 mg/dL Glucose comment 1 Use This Result [facility] Glucose comment 2 RN/ Notified [facility] Blood 10/04/2024 11:2 0 AM ELECTRONICS LEAD 10/04/2024 11:20 AM ELECTRONICS LEAD Eddie Montoya MD LAB POCT ORDERABLES - DE VICE Final Result Performing Organization Address [facility]/ZIP Co de Phone Number [address] [employer] [place] [address] * POCT glucose (10/04/2024 7:24 AM ELECTRONICS LEAD) Glucose, POC 95 70 - 199 mg/dL Glucose comment 1 Use This Result [facility] Glucose comment 2 RN/ Notified [facility] Blood 10/04/2024 7:24 AM ELECTRONICS LEAD 10/04/2024 7:24 AM ELECTRONICS LEAD Eddie Montoya MD LAB POCT ORDERABLES - DE VICE Final Result Performing Organization Address City/[facility]/ZIP Co de Phone Number [address] [employer] [place] [address] * eGFR (10/04/2024 5:02 AM ELECTRONICS LEAD) Pathologist [facility] [place] eGFR 63 >=60 mL/min/1. 73 m2 Comment: Interpretive Data Reference Interval Normal >/= 90 mL/min/1.73m2 Mildly decreased* 60 - 89 mL/min/1.73m2 Mildly to moderately decreased 45 - 59 mL/min/1.73m2 Moderately to severely decreased 30 - 44 mL/min/1.73m2 Severely decreased 15 - 29 mL/min/1.73m2 Kidney Failure < 15 mL/min/1.73m2 *Relative to young adult level Estimated glomerular filtration rate is determined by the 2020 CKD-EPI equation recommended by the National Kidney Foundation (A Unifying Approach to GFR Estimation: Recommendations of the NKF-ASK Task Force on Reassessing the Inclusion of Race in Diagnosing Kidney Disease, JASN 2020). The CKD-EPI equation should not be used for patients with unstable renal function and has not been validated in children and those over 70. Current interpretive data was last reviewed 2021. Blood 10/04/2024 5:02 AM ELECTRONICS LEAD 10/04/2024 5:36 AM ELECTRONICS LEAD Eddie Montoya MD LAB BLOOD ORDERABLES Fin al Result MARCELINO [address] [facility] Department [place] [address] * Differential, auto (10/04/2024 5:02 AM ELECTRONICS LEAD) Pathologist [facility] [place] Neutrophil abs 3.2 1.5 - 6.5 K/cumm Imm gran abs 0.0 0.0 - 0.1 K/cumm [facility] Lymphocyte abs 1.1 0.8 - 3.3 K/cumm [facility] Monocyte abs 0.5 0.2 - 0.8 K/cumm [facility] Eosinophil abs 0.0 0.0 - 0.5 K/cumm [facility] Basophil abs 0.0 0.0 - 0.1 K/cumm [facility] Neutrophil pct 65.6 % [facility] Comment: Interpretive Data Percent cell count reference ranges are not reported, since discordance with absolute values may lead to misinterpretation of CBC data. Current Interpretive Data was last revised on 2017. Imm gran pct 0.8 % [facility] Comment: Interpretive Data Percent cell count reference ranges are not reported, since discordance with absolute values may lead to misinterpretation of CBC data. Current Interpretive Data was last revised on 2017. Lymphocyte pct 22.3 % [facility] Comment: Interpretive Data Percent cell count reference ranges are not reported, since discordance with absolute values may lead to misinterpretation of CBC data. Current Interpretive Data was last revised on 2017. Monocyte pct 10.3 % [facility] Comment: Interpretive Data Percent cell count reference ranges are not reported, since discordance with absolute values may lead to misinterpretation of CBC data. Current Interpretive Data was last revised on 2017. Eosinophil pct 0.6 % [facility] Comment: Interpretive Data Percent cell count reference ranges are not reported, since discordance with absolute values may lead to misinterpretation of CBC data. Current Interpretive Data was last revised on 2017. Basophil pct 0.4 % [facility] Comment: Interpretive Data Percent cell count reference ranges are not reported, since discordance with absolute values may lead to misinterpretation of CBC data. Current Interpretive Data was last revised on 2017. Blood 10/04/2024 5:02 AM ELECTRONICS LEAD 10/04/2024 5:36 AM ELECTRONICS LEAD us Eddie Montoya MD LAB BLOOD ORDERABLES Fin al Result [facility] [address] [facility] Department [place] [address] * (ABNORMAL) CBC with auto differential (10/04/2024 5:02 AM ELECTRONICS LEAD) WBC 4.9 3.8 - 9.9 K/cumm Hgb 12.5 11.9 - 15.5 g/dL [facility] Hct 41.8 35.6 - 45.5 % [facility] Plt 286 150 - 400 K/cumm [facility] MPV 9.8 9.1 - 12.3 fL [facility] RBC 4.74 3.90 - 5.20 M/cumm [facility] MCV 88.2 81.3 - 96.4 fL [facility] MCH 26.4(L) 27.1 - 33.3 pg [facility] MCHC 29.9(L) 32.3 - 35.7 g/dL [facility] RDW CV 16.7(H) 11.1 - 14.9 % [facility] RDW SD 54.0(H) 35.7 - 48.1 fL [facility] NRBC abs 0.00 0.00 - 0.01 K/cumm [facility] Blood 10/04/2024 5:02 AM ELECTRONICS LEAD 10/04/2024 5:36 AM ELECTRONICS LEAD Eddie Montoya MD LAB BLOOD ORDERABLES Fin al Result [facility] [address] [facility] Department [place] [address] * Basic metabolic panel (10/04/2024 5:02 AM ELECTRONICS LEAD) Sodium 136 135 - 145 mmol/L Potassium, pl 3.3 3.3 - 4.9 mmol/L [facility] Chloride 100 97 - 110 mmol/L [facility] CO2 23 22 - 32 mmol/L [facility] Anion gap 13 2 - 15 mmol/L [facility] BUN 22 6 - 25 mg/dL [facility] Creatinine 0.90 0.60 - 1.10 mg/dL [facility] Glucose 94 70 - 199 mg/dL [facility] Comment: Interpretive Data Fasting glucose >/= 126 mg/dl is diagnostic for diabetes. Fasting is defined as no caloric intake for at least 8 hours. Fasting glucose between 100 mg/dl to 125 mg/dl is diagnostic of prediabetes. In a patient with classic symptoms of hyperglycemia or hyperglycemic crisis, a random glucose >/= 200 mg/dl is diagnostic for diabetes. In the absence of unequivocal hyperglycemia, results should be confirmed by repeat testing. The classification and Diagnosis of Diabetes Diabetes Care 2021; 46: S19-S40. Current interpretive data was last revised 2022. Calcium 9.8 8.5 - 10.3 mg/dL [facility] Blood 10/04/2024 5:02 AM ELECTRONICS LEAD 10/04/2024 5:36 AM ELECTRONICS LEAD Result [facility] Eddie Montoya MD LAB BLOOD ORDERABLES Fin al Result Performing Organization Address [facility] Co de Phone Number [address] [place] [address] * (ABNORMAL) POCT glucose (10/03/2024 7:27 PM ELECTRONICS LEAD) Glucose, POC 215(H) 70 - 199 mg/dL Glucose comment 1 Use This Result [facility] Glucose comment 2 RN/MD Notified [facility] Blood 10/03/2024 7:27 PM ELECTRONICS LEAD 10/03/2024 7:27 PM ELECTRONICS LEAD Result [facility] Eddie Montoya MD LAB POCT ORDERABLES - DE VICE Final Result Performing Organization Address [facility] Co de Phone Number [address] [place] [address] * POCT glucose (10/03/2024 4:19 PM ELECTRONICS LEAD) Glucose, POC 196 70 - 199 mg/dL Glucose comment 1 Use This Result [facility] Glucose comment 2 RN[facility] Blood 10/03/2024 4:19 PM ELECTRONICS LEAD 10/03/2024 4:19 PM ELECTRONICS LEAD Eddie Montoya MD LAB POCT ORDERABLES - DE VICE Final Result Performing Organization Address [facility] Co de Phone Number [address] [place] [address] * POCT glucose (10/03/2024 11:26 AM ELECTRONICS LEAD) Glucose, POC 164 70 - 199 mg/dL Glucose comment 1 Use This Result [facility] Glucose comment 2 RN/MD Notified [facility] Blood 10/03/2024 11:2 6 AM ELECTRONICS LEAD 10/03/2024 11:26 AM ELECTRONICS LEAD Eddie Montoya MD LAB POCT ORDERABLES - DE VICE Final Result Performing Organization Address [facility]/ZIP Co de Phone Number MARCELINO [address] [place] [address] * eGFR (10/03/2024 11:17 AM ELECTRONICS LEAD) Pathologist [facility] eGFR 67 >=60 mL/min/1. 73 m2 Comment: Interpretive Data Reference Interval Normal >/= 90 mL/min/1.73m2 Mildly decreased* 60 - 89 mL/min/1.73m2 Mildly to moderately decreased 45 - 59 mL/min/1.73m2 Moderately to severely decreased 30 - 44 mL/min/1.73m2 Severely decreased 15 - 29 mL/min/1.73m2 Kidney Failure < 15 mL/min/1.73m2 *Relative to young adult level Estimated glomerular filtration rate is determined by the 2020 CKD-EPI equation recommended by the National Kidney Foundation (A Unifying Approach to GFR Estimation: Recommendations of the NKF-ASK Task Force on Reassessing the Inclusion of Race in Diagnosing Kidney Disease, JASN 2020). The CKD-EPI equation should not be used for patients with unstable renal function and has not been validated in children and those over 70. Current interpretive data was last reviewed 2021. Blood 10/03/2024 11:1 7 AM ELECTRONICS LEAD 10/03/2024 11:23 AM ELECTRONICS LEAD Simi Parker DO LAB BLOOD ORDERABLES Final Resul t Performing Organization Address City/[facility]/ZIP Co de Phone Number MARCELINO [address] [place] [address] * (ABNORMAL) Comprehensive metabolic panel (10/03/2024 11:17 AM ELECTRONICS LEAD) [facility] Sodium 131(L) 135 - 145 mmol/L Potassium, pl 4.1 3.3 - 4.9 mmol/L [facility] Comment:Hemolyzed; Potassium value may be falsely elevated by as much as 1.0 mmol/L. Suggest redraw and reanalysis. Chloride 99 97 - 110 mmol/L [facility] CO2 20(L) 22 - 32 mmol/L [facility] Anion gap 12 2 - 15 mmol/L [facility] BUN 23 6 - 25 mg/dL [facility] Creatinine 0.86 0.60 - 1.10 mg/dL [facility] Glucose 170 70 - 199 mg/dL [facility] Comment: Interpretive Data Fasting glucose >/= 126 mg/dl is diagnostic for diabetes. Fasting is defined as no caloric intake for at least 8 hours. Fasting glucose between 100 mg/dl to 125 mg/dl is diagnostic of prediabetes. In a patient with classic symptoms of hyperglycemia or hyperglycemic crisis, a random glucose >/= 200 mg/dl is diagnostic for diabetes. In the absence of unequivocal hyperglycemia, results should be confirmed by repeat testing. The classification and Diagnosis of Diabetes Diabetes Care 202; 46: S19-S40. Current interpretive data was last revised 2022. Calcium 9.7 8.5 - 10.3 mg/dL [facility] Bilirubin, total 0.4 0.1 - 1.2 mg/dL [facility] Protein, pl 6.2(L) 6.5 - 8.5 g/dL [facility] Albumin 3.1(L) 3.5 - 5.0 g/dL [facility] Alk phos 75 40 - 130 Units/L [facility] ALT 12 7 - 45 Units/L [facility] AST 35 10 - 45 Units/L [facility] Comment:Hemolyzed; result ma y be falsely elevated Blood 10/03/2024 11:1 7 AM ELECTRONICS LEAD 10/03/2024 11:23 AM ELECTRONICS LEAD us Simi Parker DO LAB BLOOD ORDERABLES Final Resul t MARCELINO [address] [facility] Department [place] [address] * POCT glucose (10/03/2024 7:33 AM ELECTRONICS LEAD) [facility] Glucose, POC 101 70 - 199 mg/dL Glucose comment 1 Use This Result [facility] Blood 10/03/2024 7:33 AM ELECTRONICS LEAD 10/03/2024 7:33 AM ELECTRONICS LEAD Eddie Montoya MD LAB POCT ORDERABLES - DE VICE Final Result Performing Organization Address [facility] Co de Phone Number MARCELINO [address] [address] * POCT glucose (10/02/2024 11:19 PM ELECTRONICS LEAD) Glucose, POC 146 70 - 199 mg/dL Glucose comment 1 Use This Result MARCELINO Blood 10/02/2024 11:1 9 PM ELECTRONICS LEAD 10/02/2024 11:19 PM ELECTRONICS LEAD Saedgar Parker DO LAB POCT ORDERABLES - DEVICE Fin al Result Performing Organization Address [facility] Co de Phone Number [address] [place] [address] * POCT glucose (10/02/2024 7:41 PM ELECTRONICS LEAD) Glucose, POC 191 70 - 199 mg/dL Glucose comment 1 Use This Result MARCELINO Blood 10/02/2024 7:41 PM ELECTRONICS LEAD 10/02/2024 7:41 PM ELECTRONICS LEAD Saim Parker DO LAB POCT ORDERABLES - DEVICE Fin al Result Performing Organization Address [facility] Co de Phone Number [address] [address] * (ABNORMAL) POCT glucose (10/02/2024 4:58 PM ELECTRONICS LEAD) Glucose, POC 223(H) 70 - 199 mg/dL Blood 10/02/2024 4:58 PM ELECTRONICS LEAD 10/02/2024 4:58 PM ELECTRONICS LEAD Saim Parker DO LAB POCT ORDERABLES - DEVICE Fin al Result Performing Organization Address [facility] Co de Phone Number MARCELINO [address] [place] [address] * POCT glucose (10/02/2024 11:43 AM ELECTRONICS LEAD) Glucose, POC 152 70 - 199 mg/dL Blood 10/02/2024 11:4 3 AM ELECTRONICS LEAD 10/02/2024 11:43 AM ELECTRONICS LEAD Saim Parker DO LAB POCT ORDERABLES - DEVICE Fin al Result Performing Organization Address [facility] Co de Phone Number MARCELINO [address] [place] [address] * POCT glucose (10/02/2024 7:28 AM ELECTRONICS LEAD) Glucose, POC 126 70 - 199 mg/dL Blood 10/02/2024 7:28 AM ELECTRONICS LEAD 10/02/2024 7:28 AM ELECTRONICS LEAD SaKonoz Parker DO LAB POCT ORDERABLES - DEVICE Fin al Result Performing Organization Address [facility] de Phone Number MARCELINO [address] [address] * eGFR (10/02/2024 3:50 AM ELECTRONICS LEAD) eGFR 67 >=60 mL/min/1. 73 m2 Comment: Interpretive Data Reference Interval Normal >/= 90 mL/min/1.73m2 Mildly decreased* 60 - 89 mL/min/1.73m2 Mildly to moderately decreased 45 - 59 mL/min/1.73m2 Moderately to severely decreased 30 - 44 mL/min/1.73m2 Severely decreased 15 - 29 mL/min/1.73m2 Kidney Failure < 15 mL/min/1.73m2 *Relative to young adult level Estimated glomerular filtration rate is determined by the 2020 CKD-EPI equation recommended by the National Kidney Foundation (A Unifying Approach to GFR Estimation: Recommendations of the NKF-ASK Task Force on Reassessing the Inclusion of Race in Diagnosing Kidney Disease, FRANCISCO 2020). The CKD-EPI equation should not be used for patients with unstable renal function and has not been validated in children and those over 70. Current interpretive data was last reviewed 2021. Blood 10/02/2024 3:50 AM ELECTRONICS LEAD 10/02/2024 3:54 AM ELECTRONICS LEAD us Saedgar Parker DO LAB BLOOD ORDERABLES Final Resul t [facility] [address] [facility] Department [place] [address] * (ABNORMAL) Differential, auto (10/02/2024 3:50 AM ELECTRONICS LEAD) Neutrophil abs 5.1 1.5 - 6.5 K/cumm Imm gran abs 0.0 0.0 - 0.1 K/cumm [facility] Lymphocyte abs 0.8 0.8 - 3.3 K/cumm [facility] Monocyte abs 1.3(H) 0.2 - 0.8 K/cumm [facility] Eosinophil abs 0.0 0.0 - 0.5 K/cumm [facility] Basophil abs 0.0 0.0 - 0.1 K/cumm [facility] Neutrophil pct 69.6 % [facility] Comment: Interpretive Data Percent cell count reference ranges are not reported, since discordance with absolute values may lead to misinterpretation of CBC data. Current Interpretive Data was last revised on 2017. Imm gran pct 0.5 % [facility] Comment: Interpretive Data Percent cell count reference ranges are not reported, since discordance with absolute values may lead to misinterpretation of CBC data. Current Interpretive Data was last revised on 2017. Lymphocyte pct 11.4 % [facility] Comment: Interpretive Data Percent cell count reference ranges are not reported, since discordance with absolute values may lead to misinterpretation of CBC data. Current Interpretive Data was last revised on 2017. Monocyte pct 17.9 % [facility] Comment: Interpretive Data Percent cell count reference ranges are not reported, since discordance with absolute values may lead to misinterpretation of CBC data. Current Interpretive Data was last revised on 2017. Eosinophil pct 0.3 % [facility] Comment: Interpretive Data Percent cell count reference ranges are not reported, since discordance with absolute values may lead to misinterpretation of CBC data. Current Interpretive Data was last revised on 2017. Basophil pct 0.3 % [facility] Comment: Interpretive Data Percent cell count reference ranges are not reported, since discordance with absolute values may lead to misinterpretation of CBC data. Current Interpretive Data was last revised on 2017. Blood 10/02/2024 3:50 AM ELECTRONICS LEAD 10/02/2024 3:55 AM ELECTRONICS LEAD us Saim Parker DO LAB BLOOD ORDERABLES Final Resul t [facility] [address] [facility] Department [place] [address] * (ABNORMAL) CBC with auto differential (10/02/2024 3:50 AM ELECTRONICS LEAD) WBC 7.4 3.8 - 9.9 K/cumm Hgb 12.3 11.9 - 15.5 g/dL [facility] Hct 42.6 35.6 - 45.5 % [facility] Plt 242 150 - 400 K/cumm [facility] MPV 9.5 9.1 - 12.3 fL [facility] RBC 4.68 3.90 - 5.20 M/cumm [facility] MCV 91.0 81.3 - 96.4 fL [facility] MCH 26.3(L) 27.1 - 33.3 pg [facility] MCHC 28.9(L) 32.3 - 35.7 g/dL [facility] RDW CV 17.2(H) 11.1 - 14.9 % [facility] RDW SD 57.1(H) 35.7 - 48.1 fL [facility] NRBC abs 0.00 0.00 - 0.01 K/cumm [facility] Blood 10/02/2024 3:50 AM ELECTRONICS LEAD 10/02/2024 3:55 AM ELECTRONICS LEAD us Saim Parker DO LAB BLOOD ORDERABLES Final Resul t [facility] [address] [facility] Department [place] [address] * (ABNORMAL) Comprehensive metabolic panel (10/02/2024 3:50 AM ELECTRONICS LEAD) Sodium 134(L) 135 - 145 mmol/L Potassium, pl 3.8 3.3 - 4.9 mmol/L [facility] Comment:Hemolyzed; Potassium value may be falsely elevated by as much as 1.0 mmol/L. Suggest redraw and reanalysis. Chloride 97 97 - 110 mmol/L [facility] CO2 25 22 - 32 mmol/L [facility] Anion gap 12 2 - 15 mmol/L [facility] BUN 13 6 - 25 mg/dL [facility] Creatinine 0.86 0.60 - 1.10 mg/dL [facility] Glucose 129 70 - 199 mg/dL [facility] Comment: Interpretive Data Fasting glucose >/= 126 mg/dl is diagnostic for diabetes. Fasting is defined as no caloric intake for at least 8 hours. Fasting glucose between 100 mg/dl to 125 mg/dl is diagnostic of prediabetes. In a patient with classic symptoms of hyperglycemia or hyperglycemic crisis, a random glucose >/= 200 mg/dl is diagnostic for diabetes. In the absence of unequivocal hyperglycemia, results should be confirmed by repeat testing. The classification and Diagnosis of Diabetes Diabetes Care 2021; 46: S19-S40. Current interpretive data was last revised 2022. Calcium 9.8 8.5 - 10.3 mg/dL [facility] Bilirubin, total 0.3 0.1 - 1.2 mg/dL [facility] Protein, pl 6.1(L) 6.5 - 8.5 g/dL [facility] Albumin 3.3(L) 3.5 - 5.0 g/dL [facility] Alk phos 77 40 - 130 Units/L [facility] ALT 9 7 - 45 Units/L [facility] AST 23 10 - 45 Units/L [facility] Comment:Hemolyzed; result ma y be falsely elevated Blood 10/02/2024 3:50 AM ELECTRONICS LEAD 10/02/2024 3:54 AM ELECTRONICS LEAD us Saim Parker DO LAB BLOOD ORDERABLES Final Resul t Performing Organization Address [facility] Co de Phone Number MARCELINO [address] [address] * POCT glucose (10/01/2024 8:27 PM ELECTRONICS LEAD) Glucose, POC 146 70 - 199 mg/dL Glucose comment 1 Use This Result [facility] Blood 10/01/2024 8:27 PM ELECTRONICS LEAD 10/01/2024 8:27 PM ELECTRONICS LEAD Saim Parker DO LAB POCT ORDERABLES - DEVICE Fin al Result Performing Organization Address [facility] de Phone Number [address] [address] * (ABNORMAL) Troponin T high-sensitivity (10/01/2024 5:03 PM ELECTRONICS LEAD) Trop T hs 124(H) <=14 ng/L Comment: Interpretive Data For further hscTnT resources including the diagnostic algorithm and an aid in interpretation, copy and paste this link: https://nrl.testcatalog.org/show/hsTrop Current Interpretive Data last revised 2020. Blood 10/01/2024 5:03 PM ELECTRONICS LEAD 10/01/2024 5:29 PM ELECTRONICS LEAD Saim Parker DO LAB BLOOD ORDERABLES Final Resul t Performing Organization Address [facility] Co de Phone Number [address] [address] * POCT glucose (10/01/2024 4:46 PM ELECTRONICS LEAD) Glucose, POC 135 70 - 199 mg/dL Glucose comment 1 Use This Result [facility] Glucose comment 2 RN/MD Notified [facility] Blood 10/01/2024 4:46 PM ELECTRONICS LEAD 10/01/2024 4:46 PM ELECTRONICS LEAD [facility] Parker DO LAB POCT ORDERABLES - DEVICE Fin al Result Performing Organization Address [facility] de Phone Number [address] [address] * (ABNORMAL) Troponin T high-sensitivity (10/01/2024 1:59 PM ELECTRONICS LEAD) Trop T hs 140(H) <=14 ng/L Comment: Interpretive Data For further hscTnT resources including the diagnostic algorithm and an aid in interpretation, copy and paste this link: https://nrl.testcatalog.org/show/hsTrop Current Interpretive Data last revised 2020. Blood 10/01/2024 1:59 PM ELECTRONICS LEAD 10/01/2024 2:04 PM ELECTRONICS LEAD SaKonoz Parker DO LAB BLOOD ORDERABLES Final Resul t Performing Organization Address [facility] Phone Number [address] [address] * Sepsis Lactate w/ Reflex (10/01/2024 1:59 PM ELECTRONICS LEAD) Pathologist [facility] Sepsis Lactate 0.7 0.7 - 2.0 mmol/L Blood 10/01/2024 1:59 PM ELECTRONICS LEAD 10/01/2024 2:04 PM ELECTRONICS LEAD [facility] Parker DO LAB BLOOD ORDERABLES Final Resul t Performing Organization Address [facility] de Phone Number [address] [place] [address] * Ammonia (10/01/2024 1:59 PM ELECTRONICS LEAD) Pathologist [facility] Ammonia 23 <=50 mcmol/L Comment: Please note on 01/05/2024 the unit of measure changed from mcg/dL to mcmol/L. Current Interpretive Data was last revised on 2024. Blood 10/01/2024 1:59 PM ELECTRONICS LEAD 10/01/2024 2:04 PM ELECTRONICS LEAD Saim Parker DO LAB BLOOD ORDERABLES Final Resul t Performing Organization Address [facility]/ZIP Co de Phone Number MARCELINO [address] Department [place] [address] * ECG 12 lead (10/01/2024 1:05 PM ELECTRONICS LEAD) Ventricular Rate EKG/Min 86 BPM [facility] Atrial Rate 86 BPM [facility] NV-Interval (MSEC) 164 ms [facility] QRS-Interval (MSEC) 98 ms [facility] QT-Interval (MSEC) 396 ms [facility] QTc 473 ms [facility] P [place] 35 degrees [facility] R [place] -21 degrees [facility] T [place] 106 degrees [facility] Diagnosis Normal sinus rhythm Moderate voltage criteria for LVH, may be normal variant ( R in aVL , Milnor product ) 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 ([id number]) on 10/02/2024 10:02:07 PM [facility] 10/01/2024 1:05 PM ELECTRONICS LEAD 10/02/2024 10:02 PM ELECTRONICS LEAD Saim Parker DO ECG ORDERABLES Final Result Performing Organization Address [facility] Co de Phone Number [facility] * POCT glucose (10/01/2024 12:08 PM ELECTRONICS LEAD) Glucose, POC 155 70 - 199 mg/dL Blood 10/01/2024 12:0 8 PM ELECTRONICS LEAD 10/01/2024 12:08 PM ELECTRONICS LEAD Saim Parker DO LAB POCT ORDERABLES - DEVICE Fin al Result Performing Organization Address City/[facility]/ZIP Co de Phone Number MARCELINO [address] Department [place] [address] * CTA Head Neck W WO Contrast (10/01/2024 11:35 AM ELECTRONICS LEAD) Anatomical Region Laterality Modality Head and Neck N/A Computed Tomogra phy 10/01/2024 11:5 1 AM ELECTRONICS LEAD Narrative 10/01/2024 12:15 PM ELECTRONICS LEAD EXAM DESCRIPTION: CTA HEAD NECK W WO CONTRAST REASON FOR STUDY: Neuro deficit, acute, stroke suspected, R facial droop, language deficits, recommendation per tele-neuro stroke Code stroke. Lkw sometime last night. Pt has been having confusion and facial droop x last night. Rue weakness TECHNIQUE: Axial images were first obtained through the brain without contrast. Axial dynamic scanning technique with dynamic contrast enhancement through the intracranial and extracranial carotid and vertebral arteries. Multiplanar reconstruction. All stenosis measurements are based on NASCET criteria. 3D MIP images rendered on scanning unit and reviewed at time of interpretation. Automated exposure control was used as a dose optimization technique for this examination. CONTRAST TYPE/DOSE: 92mL of IOVERSOL 350 MG IODINE/ML INTRAVENOUS SYRINGE injected via intravenous COMPARISON: Same day noncontrast head CT. Head CT from 12/24/2023 FINDINGS: BRAIN CEREBRUM: Evaluation is motion degraded. Redemonstrated volume loss and unchanged ventricular size, appropriate for the degree of volume loss.. No gross evidence of acute intracranial hemorrhage. No archibald-white matter differentiation loss is seen grossly.. Intracranial athero sclerotic calcifications are present. No gross evidence of suspicious vascular hyperdensity. No gross enhancing lesion is seen. To orbits lens replacements are noted. POSTERIOR FOSSA: No masses. No hemorrhage. No evidence for acute infarction. EXTRA-AXIAL SPACES: No fluid collections. No masses. ORBITS: No significant abnormality. CALVARIUM: No fracture. SINUSES/MASTOIDS: Air-fluid levels redemonstrated in the sphenoid sinus, please correlate for evidence of acute sinusitis.. Postoperative changes in the mandible OTHER: Multilevel cervical degenerative disc and joint disease without evidence of high-grade stenosis in the spinal canal. No gross evidence of acute fracture or aggressive bone lesion. Dental caries are present. There are multiple absent teeth.. Degenerative disc disease is severe at multiple levels with C2 on C3 and C3 on C4 and C4 on C5 anterolisthesis and C7 on T1 anterolisthesis and reversal of the cervical lordosis. Bilateral temporomandibular joint osteoarthritis is present INTRACRANIAL VESSELS [place] [employer] [place] [facility] [place]: The anterior, middle, posterior cerebral arteries are all patent. No evidence of aneurysm or focal stenosis. POSTERIOR CIRCULATION: The distal vertebral arteries are patent as is the basilar artery. Mild stenosis of the V4 segments due to athero sclerotic plaque. No aneurysm. BRAIN: No gross enhancing lesions as visualized. CAROTID CTA: Multifocal athero sclerotic plaque RIGHT CAROTIDS: No significant internal, external or common carotid stenosis. LEFT CAROTIDS: No significant internal, external or common carotid stenosis. LEFT VERTEBRAL: Patent. No significant stenosis. No dissection. RIGHT VERTEBRAL: Patent. No significant stenosis. No dissection. AORTIC ARCH: Normal three-vessel origin. Bilateral subclavian arteries are patent. No dissection. NECK SOFT TISSUE: d multiple subcentimeter thyroid nodules in both thyroid lobes. INCLUDED LUNGS: No acute abnormality. No worrisome nodules. OTHER: No other significant finding. IMPRESSION: BRAIN: Motion degraded noncontrast CT. No gross evidence of acute intracranial abnormality. INTRACRANIAL CTA: No evidence of large vessel occlusion or significant stenosis. CAROTID CTA: No high-grade carotid or vertebral artery stenosis. Thyroid nodule recommendation: Based on size criteria alone, no specific follow-up imaging is indicated. If there is specific concerning laboratory or patient history, dedicated thyroid ultrasound could be considered for further evaluation. Impression was called to the ordering provider by the clinical radiologists operational support center at 12:14 p.m. on 10/01/2024. THIS IS AN ELECTRONICALLY VERIFIED FINAL REPORT 10/01/2024 12:15 PM - Electronically signed by Audi PRUITT T: Report ID: [id number] Reading Location: [id number] Procedure Note Audi Rodriguez MD - 10/01/2024 EXAM DESCRIPTION: CTA HEAD NECK W WO CONTRAST REASON FOR STUDY: Neuro deficit, acute, stroke suspected, R facialdroop, language deficits, recommendation per tele-neuro stroke Code stroke. Lkw sometime last night. Pt has been having confusion andfacial droop x last night. Rue weakness TECHNIQUE: Axial images were first obtained through the brain without contrast. Axial dynamic scanning technique with dynamic contrast enhancement throughthe intracranial and extracranial carotid and vertebral arteries. Multiplanar reconstruction. All stenosis measurements are based on NASCET criteria. 3D MIP images rendered on scanning unit and reviewed at time of interpretation. Automated exposure control was used as a dose optimization technique forthis examination. CONTRAST TYPE/DOSE: 92mL of IOVERSOL 350 MG IODINE/ML INTRAVENOUSSYRINGE injected via intravenous COMPARISON: Same day noncontrast head CT. Head CT from 12/24/2023 FINDINGS: BRAIN CEREBRUM: Evaluation is motion degraded. Redemonstrated volume loss and unchanged ventricular size, appropriate for the degree of volume loss..No gross evidence of acute intracranial hemorrhage. No archibald-white matter differentiation loss is seen grossly.. Intracranial athero sclerotic calcifications are present. No gross evidence of suspicious vascular hyperdensity. No gross enhancing lesion is seen. To orbits lensreplacements are noted. POSTERIOR FOSSA: No masses. No hemorrhage. No evidence for acuteinfarction. EXTRA-AXIAL SPACES: No fluid collections. No masses. ORBITS: No significant abnormality. CALVARIUM: No fracture. SINUSES/MASTOIDS: Air-fluid levels redemonstrated in the sphenoid sinus, please correlate for evidence of acute sinusitis.. Postoperative changesin the mandible OTHER: Multilevel cervical degenerative disc and joint disease without evidence of high-grade stenosis in the spinal canal. No gross evidence of acute fracture or aggressive bone lesion. Dental caries are present.There are multiple absent teeth.. Degenerative disc disease is severe atmultiple levels with C2 on C3 and C3 on C4 and C4 on C5 anterolisthesis and C7 onT1 anterolisthesis and reversal of the cervical lordosis. Bilateral temporomandibular joint osteoarthritis is present INTRACRANIAL VESSELS [place]: The anterior, middle, posterior cerebral arteries areall patent. No evidence of aneurysm or focal stenosis. POSTERIOR CIRCULATION: The distal vertebral arteries are patent as isthe basilar artery. Mild stenosis of the V4 segments due to athero sclerotic plaque. No aneurysm. BRAIN: No gross enhancing lesions as visualized. CAROTID CTA: Multifocal athero sclerotic plaque RIGHT CAROTIDS: No significant internal, external or common carotid stenosis. LEFT CAROTIDS: No significant internal, external or common carotidstenosis. LEFT VERTEBRAL: Patent. No significant stenosis. No dissection. RIGHT VERTEBRAL: Patent. No significant stenosis. No dissection. AORTIC ARCH: Normal three-vessel origin. Bilateral subclavian arteriesare patent. No dissection. NECK SOFT TISSUE: d multiple subcentimeter thyroid nodules in boththyroid lobes. INCLUDED LUNGS: No acute abnormality. No worrisome nodules. OTHER: No other significant finding. IMPRESSION: BRAIN: Motion degraded noncontrast CT. No gross evidence of acute intracranial abnormality. INTRACRANIAL CTA: No evidence of large vessel occlusion or significant stenosis. CAROTID CTA: No high-grade carotid or vertebral artery stenosis. Thyroid nodule recommendation: Based on size criteria alone, no specific follow-up imaging is indicated. If there is specific concerning laboratoryor patient history, dedicated thyroid ultrasound could be considered forfurther evaluation. Impression was called to the ordering provider by the clinicalradiologists operational support center at 12:14 p.m. on 10/01/2024. THIS IS AN ELECTRONICALLY VERIFIED FINAL REPORT 10/01/2024 12:15 PM - Electronically signed by Audi PRUITT T: Report ID: [id number] Reading Location: [place] [address] Saedgar Parker DO IMG CT PROCEDURES Final Result * POCT glucose (10/01/2024 10:52 AM ELECTRONICS LEAD) Glucose, POC 154 70 - 199 mg/dL Blood 10/01/2024 10:5 2 AM ELECTRONICS LEAD 10/01/2024 10:52 AM ELECTRONICS LEAD Sa Parker DO LAB POCT ORDERABLES - DEVICE Fin al Result [facility] [address] [facility] Department [place] [address] * CT Stroke Head WO Contrast (10/01/2024 10:39 AM ELECTRONICS LEAD) Anatomical Region Laterality Modality Head N/A Computed Tomogra phy 10/01/2024 10:4 6 AM ELECTRONICS LEAD Narrative 10/01/2024 10:56 AM ELECTRONICS LEAD EXAM DESCRIPTION: CT STROKE HEAD WO CONTRAST REASON FOR STUDY: Mental status change, unknown cause, Facial droop, RUE weakness Code stroke. Lkw sometime last night. Pt has been having confusion and facial droop x last night. Rue weakness TECHNIQUE: Axial images acquired through the brain without intravenous contrast. Images stored on PACS. Automated exposure control was used as a dose optimization technique for this examination. COMPARISON: 12/24/2023. FINDINGS: BRAIN: Motion artifact degrades evaluation of the inferior right temporal lobe. No hemorrhage, edema or mass effect. No gross CT evidence for acute infarct. Unchanged mild cerebral volume loss and unchanged ventricular size. Periventricular white matter hypoattenuation is unchanged and likely chronic microvascular ischemia.. There are intracranial athero sclerotic calcifications. No suspicious vascular hyperdensity is seen EXTRA-AXIAL SPACES: No fluid collections. No masses. CALVARIUM: No fracture. SINUSES/MASTOIDS: No fluid or mucosal thickening. ORBITS: There are lens replacements. Interval mild worsening of mucosal thickening in the sphenoid sinuses with air-fluid levels. Please correlate for evidence of acute sinusitis. Milder mucosal thickening in the ethmoid sinuses. OTHER: No other significant abnormality. IMPRESSION: Motion artifact degrades evaluation of the inferior right temporal lobe. Within this limitation, no acute intracranial findings. Interval mild worsening of mucosal thickening in the sphenoid sinuses with air-fluid levels. Please correlate for evidence of acute sinusitis. Results were called to the ordering provider at 10:56 a.m. on 10/01/2024 by the clinical radiologists operational support center. THIS IS AN ELECTRONICALLY VERIFIED FINAL REPORT 10/01/2024 10:56 AM - Electronically signed by Audi Rodriguez M.D. MZ T: Report ID: [id number] Reading Location: [id number] Procedure Note Audi Rodriguez MD - 10/01/2024 EXAM DESCRIPTION: CT STROKE HEAD WO CONTRAST REASON FOR STUDY: Mental status change, unknown cause, Facial droop, RUE weakness Code stroke. Lkw sometime last night. Pt has been having confusion andfacial droop x last night. Rue weakness TECHNIQUE: Axial images acquired through the brain without intravenous contrast. Images stored on PACS. Automated exposure control was used asa dose optimization technique for this examination. COMPARISON: 12/24/2023. FINDINGS: BRAIN: Motion artifact degrades evaluation of the inferior right temporal lobe. No hemorrhage, edema or mass effect. No gross CTevidence for acute infarct. Unchanged mild cerebral volume loss and unchanged ventricular size. Periventricular white matter hypoattenuation isunchanged and likely chronic microvascular ischemia.. There are intracranial athero sclerotic calcifications. No suspicious vascular hyperdensity is seen EXTRA-AXIAL SPACES: No fluid collections. No masses. CALVARIUM: No fracture. SINUSES/MASTOIDS: No fluid or mucosal thickening. ORBITS: There are lens replacements. Interval mild worsening of mucosal thickening in the sphenoid sinuses with air-fluid levels. Pleasecorrelate for evidence of acute sinusitis. Milder mucosal thickening in the ethmoid sinuses. OTHER: No other significant abnormality. IMPRESSION: Motion artifact degrades evaluation of the inferior right temporal lobe. Within this limitation, no acute intracranial findings. Interval mild worsening of mucosal thickening in the sphenoid sinuseswith air-fluid levels. Please correlate for evidence of acute sinusitis. Results were called to the ordering provider at 10:56 a.m. on 5by the clinical radiologists operational support center. THIS IS AN ELECTRONICALLY VERIFIED FINAL REPORT 10/01/2024 10:56 AM - Electronically signed by Audi Rodriguez M.D. MZ T: Report ID: [id number] Reading Location: [place] [address] Sa Parker DO IMG CT PROCEDURES Final Result * POCT glucose (10/01/2024 8:12 AM ELECTRONICS LEAD) [facility] Signature Glucose, POC 185 70 - 199 mg/dL Blood 10/01/2024 8:12 AM ELECTRONICS LEAD 10/01/2024 8:12 AM ELECTRONICS LEAD Sa Parker DO LAB POCT ORDERABLES - DEVICE Fin al Result [facility] [address] [facility] Department [place] [address] * Lactate (10/01/2024 12:18 AM ELECTRONICS LEAD) Lactate 1.8 0.7 - 2.0 mmol/L Blood 10/01/2024 12:1 8 AM ELECTRONICS LEAD 10/01/2024 12:21 AM ELECTRONICS LEAD Mitra Ibarra SURFACER LAB BLOOD ORDERABLES Fi nal Result Performing Organization Address [facility] Co de Phone Number [address] [place] [address] * eGFR (10/01/2024 12:18 AM ELECTRONICS LEAD) Pathologist [facility] [place] eGFR 65 >=60 mL/min/1. 73 m2 Comment: Interpretive Data Reference Interval Normal >/= 90 mL/min/1.73m2 Mildly decreased* 60 - 89 mL/min/1.73m2 Mildly to moderately decreased 45 - 59 mL/min/1.73m2 Moderately to severely decreased 30 - 44 mL/min/1.73m2 Severely decreased 15 - 29 mL/min/1.73m2 Kidney Failure < 15 mL/min/1.73m2 *Relative to young adult level Estimated glomerular filtration rate is determined by the 2020 CKD-EPI equation recommended by the National Kidney Foundation (A Unifying Approach to GFR Estimation: Recommendations of the NKF-ASK Task Force on Reassessing the Inclusion of Race in Diagnosing Kidney Disease, JASN 2020). The CKD-EPI equation should not be used for patients with unstable renal function and has not been validated in children and those over 70. Current interpretive data was last reviewed 2021. Blood 10/01/2024 12:1 8 AM ELECTRONICS LEAD 10/01/2024 12:21 AM ELECTRONICS LEAD us Mitra Ibarra SURFACER LAB BLOOD ORDERABLES Fi nal Result Performing Organization Address [facility] Co de Phone Number [address] [place] [place] [address] * (ABNORMAL) Differential, auto (10/01/2024 12:18 AM ELECTRONICS LEAD) Pathologist [facility] [place] Neutrophil abs 8.0(H) 1.5 - 6.5 K/cumm Imm gran abs 0.1 0.0 - 0.1 K/cumm [facility] Lymphocyte abs 0.4(L) 0.8 - 3.3 K/cumm [facility] Monocyte abs 0.7 0.2 - 0.8 K/cumm [facility] Eosinophil abs 0.0 0.0 - 0.5 K/cumm [facility] Basophil abs 0.0 0.0 - 0.1 K/cumm [facility] Neutrophil pct 87.8 % [facility] Comment: Interpretive Data Percent cell count reference ranges are not reported, since discordance with absolute values may lead to misinterpretation of CBC data. Current Interpretive Data was last revised on 2017. Imm gran pct 0.5 % [facility] Comment: Interpretive Data Percent cell count reference ranges are not reported, since discordance with absolute values may lead to misinterpretation of CBC data. Current Interpretive Data was last revised on 2017. Lymphocyte pct 4.2 % [facility] Comment: Interpretive Data Percent cell count reference ranges are not reported, since discordance with absolute values may lead to misinterpretation of CBC data. Current Interpretive Data was last revised on 2017. Monocyte pct 7.1 % [facility] Comment: Interpretive Data Percent cell count reference ranges are not reported, since discordance with absolute values may lead to misinterpretation of CBC data. Current Interpretive Data was last revised on 2017. Eosinophil pct 0.2 % [facility] Comment: Interpretive Data Percent cell count reference ranges are not reported, since discordance with absolute values may lead to misinterpretation of CBC data. Current Interpretive Data was last revised on 2017. Basophil pct 0.2 % [facility] Comment: Interpretive Data Percent cell count reference ranges are not reported, since discordance with absolute values may lead to misinterpretation of CBC data. Current Interpretive Data was last revised on 2017. Blood 10/01/2024 12:1 8 AM ELECTRONICS LEAD 10/01/2024 12:21 AM ELECTRONICS LEAD us Mitra Ibarra SURFACER LAB BLOOD ORDERABLES Fi nal Result [address] [address] * (ABNORMAL) CBC with auto differential (10/01/2024 12:18 AM ELECTRONICS LEAD) [facility] WBC 9.1 3.8 - 9.9 K/cumm Hgb 11.6(L) 11.9 - 15.5 g/dL [facility] Hct 38.4 35.6 - 45.5 % [facility] Plt 270 150 - 400 K/cumm [facility] MPV 9.2 9.1 - 12.3 fL [facility] RBC 4.48 3.90 - 5.20 M/cumm [facility] MCV 85.7 81.3 - 96.4 fL [facility] MCH 25.9(L) 27.1 - 33.3 pg [facility] MCHC 30.2(L) 32.3 - 35.7 g/dL [facility] RDW CV 16.8(H) 11.1 - 14.9 % [facility] RDW SD 51.9(H) 35.7 - 48.1 fL [facility] NRBC abs 0.00 0.00 - 0.01 K/cumm [facility] Blood 10/01/2024 12:1 8 AM ELECTRONICS LEAD 10/01/2024 12:21 AM ELECTRONICS LEAD Mitra Ibarra SURFACER LAB BLOOD ORDERABLES Fi nal Result Performing Organization Address [facility] Co de Phone Number [address] [address] * Phosphorus (10/01/2024 12:18 AM ELECTRONICS LEAD) [facility] Phosphorus, pl 2.9 2.3 - 4.5 mg/dL Blood 10/01/2024 12:1 8 AM ELECTRONICS LEAD 10/01/2024 12:21 AM ELECTRONICS LEAD Mitra Ibarra SURFACER LAB BLOOD ORDERABLES Fi nal Result Performing Organization Address [facility] Co de Phone Number [address] [place] [address] * Magnesium (10/01/2024 12:18 AM ELECTRONICS LEAD) Pathologist [facility] Magnesium 1.8 1.4 - 2.5 mg/dL Blood 10/01/2024 12:1 8 AM ELECTRONICS LEAD 10/01/2024 12:21 AM ELECTRONICS LEAD Mitra Ibarra SURFACER LAB BLOOD ORDERABLES Fi nal Result [address] [place] [address] * (ABNORMAL) Basic metabolic panel (10/01/2024 12:18 AM ELECTRONICS LEAD) Pathologist [facility] [place] Sodium 135 135 - 145 mmol/L Potassium, pl 3.7 3.3 - 4.9 mmol/L [facility] Chloride 96(L) 97 - 110 mmol/L [facility] CO2 27 22 - 32 mmol/L [facility] Anion gap 12 2 - 15 mmol/L [facility] BUN 11 6 - 25 mg/dL [facility] Creatinine 0.88 0.60 - 1.10 mg/dL [facility] Glucose 157 70 - 199 mg/dL [facility] Comment: Interpretive Data Fasting glucose >/= 126 mg/dl is diagnostic for diabetes. Fasting is defined as no caloric intake for at least 8 hours. Fasting glucose between 100 mg/dl to 125 mg/dl is diagnostic of prediabetes. In a patient with classic symptoms of hyperglycemia or hyperglycemic crisis, a random glucose >/= 200 mg/dl is diagnostic for diabetes. In the absence of unequivocal hyperglycemia, results should be confirmed by repeat testing. The classification and Diagnosis of Diabetes Diabetes Care 202; 46: S19-S40. Current interpretive data was last revised 2022. Calcium 10.3 8.5 - 10.3 mg/dL [facility] Blood 10/01/2024 12:1 8 AM ELECTRONICS LEAD 10/01/2024 12:21 AM ELECTRONICS LEAD Mitra Ibarra NP LAB BLOOD ORDERABLES Fi nal Result [facility] [address] [facility] Department [place] [address] * XR Chest 1 View (10/01/2024 12:03 AM ELECTRONICS LEAD) Anatomical Region Laterality Modality Body, Chest N/A Computed Radiogr aphy 10/01/2024 12:3 3 AM ELECTRONICS LEAD Narrative 10/01/2024 12:33 AM ELECTRONICS LEAD EXAM DESCRIPTION: XR CHEST 1 VIEW REASON FOR STUDY: Shortness of breath sob, r/o aspiration, pt had vomit all over front of gown TECHNIQUE: Portable upright AP view of the chest. COMPARISON: 06/13/2023 FINDINGS: LUNGS AND PLEURA: No focal opacity, large effusion, or pneumothorax identified. HEART/MEDIASTINUM: Trachea midline. Cardiac silhouette normal in size. Mediastinal contours appear normal. BONES: Shoulder arthritis. CHEST WALL: Unremarkable. UPPER ABDOMEN: Unremarkable. IMPRESSION: No acute abnormality identified. THIS IS AN ELECTRONICALLY VERIFIED FINAL REPORT 10/01/2024 12:33 AM - Electronically signed by Juan Francisco Campbell M.D. AR T: Report ID: [id number] Reading Location: [id number] Procedure Note Juan Francisco Campbell MD - 10/01/2024 EXAM DESCRIPTION: XR CHEST 1 VIEW REASON FOR STUDY: Shortness of breath sob, r/o aspiration, pt had vomit all over front of gown TECHNIQUE: Portable upright AP view of the chest. COMPARISON: 06/13/2023 FINDINGS: LUNGS AND PLEURA: No focal opacity, large effusion, orpneumothorax identified. HEART/MEDIASTINUM: Trachea midline. Cardiac silhouette normal in size. Mediastinal contours appear normal. BONES: Shoulder arthritis. CHEST WALL: Unremarkable. UPPER ABDOMEN: Unremarkable. IMPRESSION: No acute abnormality identified. THIS IS AN ELECTRONICALLY VERIFIED FINAL REPORT 10/01/2024 12:33 AM - Electronically signed by Juan Francisco Campbell M.D. AR T: Report ID: [id number] Reading Location: [id number] Mitra Ibarra SURFACER IMG XR PROCEDURES Final Result * POCT glucose (09/30/2024 10:19 PM ELECTRONICS LEAD) Glucose, POC 150 70 - 199 mg/dL Blood 09/30/2024 10:1 9 PM ELECTRONICS LEAD 09/30/2024 10:19 PM ELECTRONICS LEAD Saim Parker DO LAB POCT ORDERABLES - DEVICE Fin al Result Performing Organization Address [facility] Co de Phone Number [address] [place] [address] * (ABNORMAL) POCT glucose (09/30/2024 4:03 PM ELECTRONICS LEAD) Glucose, POC 255(H) 70 - 199 mg/dL Glucose comment 1 Use This Result [facility] Glucose comment 2 RN/MD Notified MARCELINO Blood 09/30/2024 4:03 PM ELECTRONICS LEAD 09/30/2024 4:03 PM ELECTRONICS LEAD Saim Parker DO LAB POCT ORDERABLES - DEVICE Fin al Result Performing Organization Address [facility] Co de Phone Number [address] [place] [address] * POCT glucose (09/30/2024 11:04 AM ELECTRONICS LEAD) Glucose, POC 172 70 - 199 mg/dL Glucose comment 1 Use This [facility] Blood 09/30/2024 11:0 4 AM ELECTRONICS LEAD 09/30/2024 11:04 AM ELECTRONICS LEAD Saim Parker DO LAB POCT ORDERABLES - DEVICE Fin al Result Performing Organization Address [facility] Co de Phone Number [address] [place] [address] * POCT glucose (09/30/2024 7:25 AM ELECTRONICS LEAD) [facility] Glucose, POC 95 70 - 199 mg/dL Glucose comment 1 Use This Result MARCELINO Blood 09/30/2024 7:25 AM ELECTRONICS LEAD 09/30/2024 7:25 AM ELECTRONICS LEAD Saim Parker DO LAB POCT ORDERABLES - DEVICE Fin al Result Performing Organization Address City/[facility]/ZIP Co de Phone Number MARCELINO [address] [place] [employer] [place] [address] * (ABNORMAL) eGFR (09/30/2024 4:27 AM ELECTRONICS LEAD) [facility] eGFR 57(L) >=60 mL/min/1. 73 m2 Comment: Interpretive Data Reference Interval Normal >/= 90 mL/min/1.73m2 Mildly decreased* 60 - 89 mL/min/1.73m2 Mildly to moderately decreased 45 - 59 mL/min/1.73m2 Moderately to severely decreased 30 - 44 mL/min/1.73m2 Severely decreased 15 - 29 mL/min/1.73m2 Kidney Failure < 15 mL/min/1.73m2 *Relative to young adult level Estimated glomerular filtration rate is determined by the 2020 CKD-EPI equation recommended by the National Kidney Foundation (A Unifying Approach to GFR Estimation: Recommendations of the NKF-ASK Task Force on Reassessing the Inclusion of Race in Diagnosing Kidney Disease, JASN 202). The CKD-EPI equation should not be used for patients with unstable renal function and has not been validated in children and those over 70. Current interpretive data was last reviewed 2021. Blood 09/30/2024 4:27 AM ELECTRONICS LEAD 09/30/2024 5:41 AM ELECTRONICS LEAD Saim Parker DO LAB BLOOD ORDERABLES Final Resul t Performing Organization Address City/[facility]/ZIP Co de Phone Number [address] [place] [address] * Differential, auto (09/30/2024 4:27 AM ELECTRONICS LEAD) Neutrophil abs 6.4 1.5 - 6.5 K/cumm Imm gran abs 0.0 0.0 - 0.1 K/cumm [facility] Lymphocyte abs 1.0 0.8 - 3.3 K/cumm [facility] Monocyte abs 0.7 0.2 - 0.8 K/cumm [facility] Eosinophil abs 0.2 0.0 - 0.5 K/cumm [facility] Basophil abs 0.0 0.0 - 0.1 K/cumm [facility] Neutrophil pct 76.7 % [facility] Comment: Interpretive Data Percent cell count reference ranges are not reported, since discordance with absolute values may lead to misinterpretation of CBC data. Current Interpretive Data was last revised on 2017. Imm gran pct 0.5 % [facility] Comment: Interpretive Data Percent cell count reference ranges are not reported, since discordance with absolute values may lead to misinterpretation of CBC data. Current Interpretive Data was last revised on 2017. Lymphocyte pct 11.9 % [facility] Comment: Interpretive Data Percent cell count reference ranges are not reported, since discordance with absolute values may lead to misinterpretation of CBC data. Current Interpretive Data was last revised on 2017. Monocyte pct 7.8 % [facility] Comment: Interpretive Data Percent cell count reference ranges are not reported, since discordance with absolute values may lead to misinterpretation of CBC data. Current Interpretive Data was last revised on 2017. Eosinophil pct 2.6 % [facility] Comment: Interpretive Data Percent cell count reference ranges are not reported, since discordance with absolute values may lead to misinterpretation of CBC data. Current Interpretive Data was last revised on 2017. Basophil pct 0.5 % [facility] Comment: Interpretive Data Percent cell count reference ranges are not reported, since discordance with absolute values may lead to misinterpretation of CBC data. Current Interpretive Data was last revised on 2017. Blood 09/30/2024 4:27 AM ELECTRONICS LEAD 09/30/2024 5:40 AM ELECTRONICS LEAD us Saim Parker DO LAB BLOOD ORDERABLES Final Resul t [address] [place] [address] * (ABNORMAL) CBC with auto differential (09/30/2024 4:27 AM ELECTRONICS LEAD) [facility] WBC 8.4 3.8 - 9.9 K/cumm Hgb 10.7(L) 11.9 - 15.5 g/dL [facility] Hct 34.9(L) 35.6 - 45.5 % [facility] Plt 290 150 - 400 K/cumm [facility] MPV 9.4 9.1 - 12.3 fL [facility] RBC 3.99 3.90 - 5.20 M/cumm [facility] MCV 87.5 81.3 - 96.4 fL [facility] MCH 26.8(L) 27.1 - 33.3 pg [facility] MCHC 30.7(L) 32.3 - 35.7 g/dL [facility] RDW CV 16.7(H) 11.1 - 14.9 % [facility] RDW SD 52.8(H) 35.7 - 48.1 fL [facility] NRBC abs 0.00 0.00 - 0.01 K/cumm [facility] Blood 09/30/2024 4:27 AM ELECTRONICS LEAD 09/30/2024 5:40 AM ELECTRONICS LEAD us Simi Parker DO LAB BLOOD ORDERABLES Final Resul t [address] [place] [address] * (ABNORMAL) Basic metabolic panel (09/30/2024 4:27 AM ELECTRONICS LEAD) [facility] Sodium 134(L) 135 - 145 mmol/L Potassium, pl 3.3 3.3 - 4.9 mmol/L [facility] Chloride 100 97 - 110 mmol/L [facility] CO2 26 22 - 32 mmol/L [facility] Anion gap 8 2 - 15 mmol/L [facility] BUN 13 6 - 25 mg/dL [facility] Creatinine 0.98 0.60 - 1.10 mg/dL [facility] Glucose 110 70 - 199 mg/dL [facility] Comment: Interpretive Data Fasting glucose >/= 126 mg/dl is diagnostic for diabetes. Fasting is defined as no caloric intake for at least 8 hours. Fasting glucose between 100 mg/dl to 125 mg/dl is diagnostic of prediabetes. In a patient with classic symptoms of hyperglycemia or hyperglycemic crisis, a random glucose >/= 200 mg/dl is diagnostic for diabetes. In the absence of unequivocal hyperglycemia, results should be confirmed by repeat testing. The classification and Diagnosis of Diabetes Diabetes Care 202; 46: S19-S40. Current interpretive data was last revised 2022. Calcium 9.5 8.5 - 10.3 mg/dL [facility] Blood 09/30/2024 4:27 AM ELECTRONICS LEAD 09/30/2024 5:41 AM ELECTRONICS LEAD [employer] DO LAB BLOOD ORDERABLES Final Resul t Performing Organization Address [facility] Co de Phone Number [address] [place] [address] * (ABNORMAL) POCT glucose (09/29/2024 7:36 PM ELECTRONICS LEAD) Glucose, POC 224(H) 70 - 199 mg/dL Glucose comment 1 Use This Result [facility] Glucose comment 2 RN/MD Notified [facility] Blood 09/29/2024 7:36 PM ELECTRONICS LEAD 09/29/2024 7:36 PM ELECTRONICS LEAD [employer] DO LAB POCT ORDERABLES - DEVICE Fin al Result Performing Organization Address [facility] Co de Phone Number [address] [place] [address] * (ABNORMAL) POCT glucose (09/29/2024 4:13 PM ELECTRONICS LEAD) Glucose, POC 203(H) 70 - 199 mg/dL Glucose comment 1 Use This Result [facility] Glucose comment 2 RN/MD Notified [facility] Blood 09/29/2024 4:13 PM ELECTRONICS LEAD 09/29/2024 4:13 PM ELECTRONICS LEAD Saim Parker DO LAB POCT ORDERABLES - DEVICE Fin al Result Performing Organization Address [facility] de Phone Number MARCELINO [address] [address] * (ABNORMAL) POCT glucose (09/29/2024 11:25 AM ELECTRONICS LEAD) Glucose, POC 258(H) 70 - 199 mg/dL Glucose comment 1 Use This Result [facility] Glucose comment 2 RN/MD Notified [facility] Blood 09/29/2024 11:2 5 AM ELECTRONICS LEAD 09/29/2024 11:25 AM ELECTRONICS LEAD Saim Parker DO LAB POCT ORDERABLES - DEVICE Fin al Result Performing Organization Address [facility] de Phone Number [address] [address] * (ABNORMAL) POCT glucose (09/29/2024 11:23 AM ELECTRONICS LEAD) Glucose, POC 243(H) 70 - 199 mg/dL Glucose comment 1 Use This Result [facility] Glucose comment 2 RN/MD Notified [facility] Blood 09/29/2024 11:2 3 AM ELECTRONICS LEAD 09/29/2024 11:23 AM ELECTRONICS LEAD Saim Parker DO LAB POCT ORDERABLES - DEVICE Fin al Result Performing Organization Address [facility] de Phone Number [address] [address] * (ABNORMAL) Iron profile w/ IBC (09/29/2024 10:58 AM ELECTRONICS LEAD) Iron 27(L) 35 - 145 mcg/dL TIBC 289 250 - 400 mcg/dL [facility] Transferrin saturation 9(L) 20 - 50 % [facility] Blood 09/29/2024 10:5 8 AM ELECTRONICS LEAD 09/29/2024 11:15 AM ELECTRONICS LEAD us Saim Parker DO LAB BLOOD ORDERABLES Final Resul t Performing Organization Address [facility]/ZIP Co de Phone Number [address] [place] [address] * Folate (09/29/2024 10:58 AM ELECTRONICS LEAD) Folic acid 7.1 >=5.0 ng/mL Blood 09/29/2024 10:5 8 AM ELECTRONICS LEAD 09/29/2024 11:15 AM ELECTRONICS LEAD us Saim Parker DO LAB BLOOD ORDERABLES Final Resul t Performing Organization Address [facility] de Phone Number [address] [place] [address] * Ferritin (09/29/2024 10:58 AM ELECTRONICS LEAD) Pathologist [facility] Ferritin 67 15 - 150 ng/mL Blood 09/29/2024 10:5 8 AM ELECTRONICS LEAD 09/29/2024 11:15 AM ELECTRONICS LEAD us Saim Parker DO LAB BLOOD ORDERABLES Final Resul t Performing Organization Address [facility] Co de Phone Number [address] [place] [address] * Vitamin B12 (09/29/2024 10:58 AM ELECTRONICS LEAD) Vitamin B12 399 230 - 1,250 pg/mL Blood 09/29/2024 10:5 8 AM ELECTRONICS LEAD 09/29/2024 11:15 AM ELECTRONICS LEAD Saim Parker DO LAB BLOOD ORDERABLES Final Resul t Performing Organization Address [facility] Co de Phone Number [address] [place] [address] * POCT glucose (09/29/2024 7:56 AM ELECTRONICS LEAD) [facility] Glucose, POC 100 70 - 199 mg/dL Glucose comment 1 Use This Result MARCELINO Glucose comment 2 RN/MD Notified MARC[facility] Blood 09/29/2024 7:56 AM ELECTRONICS LEAD 09/29/2024 7:56 AM ELECTRONICS LEAD Simi Parker DO LAB POCT ORDERABLES - DEVICE Fin al Result Performing Organization Address City/[facility]/ZIP Co de Phone Number MARCELINO [address] [facility] Department [place] [address] * ECG 12 lead (09/29/2024 7:17 AM ELECTRONICS LEAD) [facility] Ventricular Rate EKG/Min 71 BPM [facility] Atrial Rate 71 BPM [facility] NV-Interval (MSEC) 176 ms [facility] QRS-Interval (MSEC) 102 ms [facility] QT-Interval (MSEC) 428 ms [facility] QTc 465 ms [facility] P [place] 16 degrees [facility] R [place] -17 degrees [facility] T [place] 147 degrees [facility] Diagnosis Normal sinus rhythm Left ventricular hypertrophy with repolarization abnormality ( R in aVL , Milnor product ) 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 ([id number]) on 10/02/2024 8:14:02 PM [facility] 09/29/2024 7:17 AM ELECTRONICS LEAD 10/02/2024 8:14 PM ELECTRONICS LEAD Mackenzie Carey SURFACER ECG ORDERABLES Final Result [facility] * eGFR (09/29/2024 6:21 AM ELECTRONICS LEAD) [facility] eGFR 64 >=60 mL/min/1. 73 m2 Comment: Interpretive Data Reference Interval Normal >/= 90 mL/min/1.73m2 Mildly decreased* 60 - 89 mL/min/1.73m2 Mildly to moderately decreased 45 - 59 mL/min/1.73m2 Moderately to severely decreased 30 - 44 mL/min/1.73m2 Severely decreased 15 - 29 mL/min/1.73m2 Kidney Failure < 15 mL/min/1.73m2 *Relative to young adult level Estimated glomerular filtration rate is determined by the 2020 CKD-EPI equation recommended by the National Kid[employer] (A Unifying Approach to GFR Estimation: Recommendations of the NKF-ASK Task Force on Reassessing the Inclusion of Race in Diagnosing Kidney Disease, JASN 2020). The CKD-EPI equation should not be used for patients with unstable renal function and has not been validated in children and those over 70. Current interpretive data was last reviewed 2021. Blood 09/29/2024 6:21 AM ELECTRONICS LEAD 09/29/2024 6:29 AM ELECTRONICS LEAD us Mackenzie Carey NP LAB BLOOD ORDERABLES Final R esult [facility] [address] [facility] Department [place] [address] * Differential, auto (09/29/2024 6:21 AM ELECTRONICS LEAD) Neutrophil abs 5.7 1.5 - 6.5 K/cumm Imm gran abs 0.0 0.0 - 0.1 K/cumm [facility] Lymphocyte abs 1.3 0.8 - 3.3 K/cumm [facility] Monocyte abs 0.8 0.2 - 0.8 K/cumm [facility] Eosinophil abs 0.2 0.0 - 0.5 K/cumm [facility] Basophil abs 0.0 0.0 - 0.1 K/cumm [facility] Neutrophil pct 71.2 % [facility] Comment: Interpretive Data Percent cell count reference ranges are not reported, since discordance with absolute values may lead to misinterpretation of CBC data. Current Interpretive Data was last revised on 2017. Imm gran pct 0.4 % [facility] Comment: Interpretive Data Percent cell count reference ranges are not reported, since discordance with absolute values may lead to misinterpretation of CBC data. Current Interpretive Data was last revised on 2017. Lymphocyte pct 16.1 % [facility] Comment: Interpretive Data Percent cell count reference ranges are not reported, since discordance with absolute values may lead to misinterpretation of CBC data. Current Interpretive Data was last revised on 2017. Monocyte pct 9.9 % [facility] Comment: Interpretive Data Percent cell count reference ranges are not reported, since discordance with absolute values may lead to misinterpretation of CBC data. Current Interpretive Data was last revised on 2017. Eosinophil pct 2.0 % [facility] Comment: Interpretive Data Percent cell count reference ranges are not reported, since discordance with absolute values may lead to misinterpretation of CBC data. Current Interpretive Data was last revised on 2017. Basophil pct 0.4 % [facility] Comment: Interpretive Data Percent cell count reference ranges are not reported, since discordance with absolute values may lead to misinterpretation of CBC data. Current Interpretive Data was last revised on 2017. Blood 09/29/2024 6:21 AM ELECTRONICS LEAD 09/29/2024 6:29 AM ELECTRONICS LEAD us Mackenzie Carey SURFACER LAB BLOOD ORDERABLES Final R esult [facility] [address] [facility] Department [place] [address] * (ABNORMAL) CBC with auto differential (09/29/2024 6:21 AM ELECTRONICS LEAD) WBC 8.0 3.8 - 9.9 K/cumm Hgb 10.3(L) 11.9 - 15.5 g/dL [facility] Hct 34.4(L) 35.6 - 45.5 % [facility] Plt 290 150 - 400 K/cumm [facility] MPV 9.0(L) 9.1 - 12.3 fL [facility] RBC 3.96 3.90 - 5.20 M/cumm [facility] MCV 86.9 81.3 - 96.4 fL [facility] MCH 26.0(L) 27.1 - 33.3 pg [facility] MCHC 29.9(L) 32.3 - 35.7 g/dL [facility] RDW CV 16.4(H) 11.1 - 14.9 % [facility] RDW SD 52.3(H) 35.7 - 48.1 fL [facility] NRBC abs 0.00 0.00 - 0.01 K/cumm [facility] Blood 09/29/2024 6:21 AM ELECTRONICS LEAD 09/29/2024 6:29 AM ELECTRONICS LEAD Mackenzie Carey SURFACER LAB BLOOD ORDERABLES Final R esult Performing Organization Address City/[facility] Co de Phone Number [address] [place] [address] * Phosphorus (09/29/2024 6:21 AM ELECTRONICS LEAD) Phosphorus, pl 3.2 2.3 - 4.5 mg/dL Blood 09/29/2024 6:21 AM ELECTRONICS LEAD 09/29/2024 6:29 AM ELECTRONICS LEAD Mackenzie Carey SURFACER LAB BLOOD ORDERABLES Final R esult Performing Organization Address [facility] Co de Phone Number [address] [place] [address] * Magnesium (09/29/2024 6:21 AM ELECTRONICS LEAD) Magnesium 2.0 1.4 - 2.5 mg/dL Blood 09/29/2024 6:21 AM ELECTRONICS LEAD 09/29/2024 6:29 AM ELECTRONICS LEAD Mackenzie Carey SURFACER LAB BLOOD ORDERABLES Final R esult Performing Organization Address [facility] Co de Phone Number [address] [place] [address] * (ABNORMAL) Comprehensive metabolic panel (09/29/2024 6:21 AM ELECTRONICS LEAD) Sodium 139 135 - 145 mmol/L Potassium, pl 3.8 3.3 - 4.9 mmol/L [facility] Chloride 105 97 - 110 mmol/L [facility] CO2 26 22 - 32 mmol/L [facility] Anion gap 8 2 - 15 mmol/L [facility] BUN 14 6 - 25 mg/dL [facility] Creatinine 0.89 0.60 - 1.10 mg/dL [facility] Glucose 113 70 - 199 mg/dL [facility] Comment: Interpretive Data Fasting glucose >/= 126 mg/dl is diagnostic for diabetes. Fasting is defined as no caloric intake for at least 8 hours. Fasting glucose between 100 mg/dl to 125 mg/dl is diagnostic of prediabetes. In a patient with classic symptoms of hyperglycemia or hyperglycemic crisis, a random glucose >/= 200 mg/dl is diagnostic for diabetes. In the absence of unequivocal hyperglycemia, results should be confirmed by repeat testing. The classification and Diagnosis of Diabetes Diabetes Care 202; 46: S19-S40. Current interpretive data was last revised 2022. Calcium 9.1 8.5 - 10.3 mg/dL [facility] Bilirubin, total 0.2 0.1 - 1.2 mg/dL [facility] Protein, pl 5.5(L) 6.5 - 8.5 g/dL [facility] Albumin 3.2(L) 3.5 - 5.0 g/dL [facility] Alk phos 73 40 - 130 Units/L [facility] ALT 13 7 - 45 Units/L [facility] AST 27 10 - 45 Units/L [facility] Blood 09/29/2024 6:21 AM ELECTRONICS LEAD 09/29/2024 6:29 AM ELECTRONICS LEAD us Mackenzie Carey NP LAB BLOOD ORDERABLES Final [facility] esult [facility] [address] [facility] Department [place] [address] * POCT glucose (09/29/2024 2:02 AM ELECTRONICS LEAD) Glucose, POC 135 70 - 199 mg/dL Blood 09/29/2024 2:02 AM ELECTRONICS LEAD 09/29/2024 2:02 AM ELECTRONICS LEAD us Faustino Frankel MD LAB POCT ORDERABLES - DEVICE Final Result Performing Organization Address [facility] Co de Phone Number [facility] [address] [address] * POCT glucose (09/28/2024 8:40 PM ELECTRONICS LEAD) Glucose, POC 172 70 - 199 mg/dL Blood 09/28/2024 8:40 PM ELECTRONICS LEAD 09/28/2024 8:40 PM ELECTRONICS LEAD Faustino Frankel MD LAB POCT ORDERABLES - DEVICE Final Result Performing Organization Address [facility] de Phone Number [address] [address] * POCT glucose (09/28/2024 5:39 PM ELECTRONICS LEAD) Glucose, POC 184 70 - 199 mg/dL Glucose comment 1 Use This Result [facility] Glucose comment 2 RN/MD Notified [facility] Blood 09/28/2024 5:39 PM ELECTRONICS LEAD 09/28/2024 5:39 PM ELECTRONICS LEAD us Faustino Frankel MD LAB POCT ORDERABLES - DEVICE Final Result Performing Organization Address [facility] Co de Phone Number [address] [address] * TRANSTHORACIC ECHO (TTE) COMPLETE W DOPPLER/CF WO CONTRAST (09/28/2024 4:40 PM ELECTRONICS LEAD) Anatomical Region Laterality Modality Ultrasound 09/28/2024 4:01 PM ELECTRONICS LEAD Narrative 09/28/2024 5:45 PM ELECTRONICS LEAD Adult Echocardiogram + ----- + :Name: SHARI KAISER Study Date: 09/28/2024 Status: [facility] : : Patient Location: [address]^[id number]^MHBHeight: 66 in : : Weight: 185 lbBP: 150/81 mmHg: :: 1940 Gender: Female BSA: 1.9 m2 : :Reason For Study: accidental fall : :Ordering Physician: KEM, : :MACKENZIE : : : :Performed By: Alia : :DAWOOD Barkley : + ----- + Procedure A two-dimensional transthoracic echocardiogram with color flow and Doppler was performed. The study was technically difficult due to patient's 'body habitus'. Left Ventricle The left ventricle is normal in size. There is normal left ventricular wall thickness. Left ventricular systolic function is normal. Ejection Fraction = 55-60%. Septal motion is consistent with conduction abnormality. No obvious regional wall motion abnormalities noted. There is no thrombus. Right Ventricle The right ventricle is normal size. There is normal right ventricular wall thickness. The right ventricular systolic function is normal. The right ventricular wall motion is normal. Atria The left atrium is moderately dilated. Right atrial size is normal. The interatrial septum is intact with no evidence for an atrial septal defect. Mitral Valve The mitral valve is normal. There is no mitral valve stenosis. There is no mitral regurgitation noted. Tricuspid Valve The tricuspid valve is normal. Right ventricular systolic pressure is normal. There is mild tricuspid regurgitation. Aortic Valve The aortic valve is trileaflet. The aortic valve opens well. No aortic stenosis . No significant aortic regurgitation noted. Pulmonic Valve The pulmonic valve is not well seen, but is grossly normal. Trace pulmonic valvular regurgitation. Great Vessels The aortic root is normal size. IVC appears normal in size. Pericardium The pericardium appears normal. Diastology Diastolic dysfunction, Grade II, consistent with congestive heart failure. Interpretation Summary Left ventricular systolic function is normal. Ejection Fraction = 55-60%. Diastolic dysfunction, Grade II, consistent with congestive heart failure. The left atrium is moderately dilated. + + :Measurements with Normals : : (0.6-1.2 LVIDd: (3.5-5.7 Ao root diam: (2.0-3.7 : :IVSd: 1.3 cmcm) 5.2 cm cm) 3.1 cm cm) : :LVPWd: (0.6-1.1 LVIDs: (3.1-4.6 LA dimension: (1.9-4.0 : :1.1 cm cm) 4.2 cm cm) 4.1 cm cm) : + + MMode/2D Measurements & Calculations FS: 18.1 % Ao root area: 7.5 cm2 LVOT diam: 2.1 cm EDV(Teich): 126.6 ml LVOT area: 3.5 cm2 ESV(Teich): 79.5 ml Doppler Measurements & Calculations MV E max spike: MV dec slope: Ao V2 max: LV V1 max P.2 cm/sec 367.0 cm/sec2 174.0 cm/sec 4.2 mmHg MV A max spike: MV dec time: 0.21 sec Ao max PG: LV V1 max: 76.2 cm/sec 12.1 mmHg 102.0 cm/sec MV E/A: 1.0 MIGUE(V,D): 2.0 cm2 TV V2 max: PA V2 max: RV V1 max: TR max spike: 50.9 cm/sec 92.3 cm/sec 61.3 cm/sec 305.0 cm/sec TV max P.0 mmHgPA max P.4 mmHg TR max P.2 mmHg RVSP(TR): 40.2 mmHg RAP systole: 3.0 mmHg Electronically signed by: Hilda Jonas MD 09/28/2024 05:45 PM Procedure Note Hilda Jonas MD - 09/28/2024 Adult Echocardiogram + ----- + :Name: SHARI KAISER Study Date: 09/28/2024Status: B : : Patient Location: [facility] 2NE^[id number]^MHBHeight: 66 in : : : 185 lbBP: 150/81 mmHg: :: 1940 Gender: FemaleBSA: 1.9 m2 : :Reason For Study: accidental fall: :Ordering Physician: KEM,: :MACKENZIE: :: :Performed By: Alia: :DAOWOD Barkley: + ----- + Procedure A two-dimensional transthoracic echocardiogram with color flow and Dopplerwas performed. The study was technically difficult due to patient's 'body habitus'. Left Ventricle The left ventricle is normal in size. There is normal left ventricularwall thickness. Left ventricular systolic function is normal. Ejection Fraction= 55-60%. Septal motion is consistent with conduction abnormality. Noobvious regional wall motion abnormalities noted. There is no thrombus. Right Ventricle The right ventricle is normal size. There is normal right ventricularwall thickness. The right ventricular systolic function is normal. The right ventricular wall motion is normal. Atria The left atrium is moderately dilated. Right atrial size is normal. The interatrial septum is intact with no evidence for an atrial septaldefect. Mitral Valve The mitral valve is normal. There is no mitral valve stenosis. There isno mitral regurgitation noted. Tricuspid Valve The tricuspid valve is normal. Right ventricular systolic pressure isnormal. There is mild tricuspid regurgitation. Aortic Valve The aortic valve is trileaflet. The aortic valve opens well. No aortic stenosis . No significant aortic regurgitation noted. Pulmonic Valve The pulmonic valve is not well seen, but is grossly normal. Tracepulmonic valvular regurgitation. Great Vessels The aortic root is normal size. IVC appears normal in size. Pericardium The pericardium appears normal. Diastology Diastolic dysfunction, Grade II, consistent with congestive heartfailure. Interpretation Summary Left ventricular systolic function is normal. Ejection Fraction = 55-60%. Diastolic dysfunction, Grade II, consistent with congestive heartfailure. The left atrium is moderately dilated. + + :Measurements with Normals: : (0.6-1.2 LVIDd: (3.5-5.7 Ao root diam:(2.0-3.7 : :IVSd: 1.3 cmcm) 5.2 cm cm) 3.1 cm cm): :LVPWd: (0.6-1.1 LVIDs: (3.1-4.6 LA dimension:(1.9-4.0 : :1.1 cm cm) 4.2 cm cm) 4.1 cm cm): + + MMode/2D Measurements & Calculations FS: 18.1 % Ao root area: 7.5 cm2 LVOT diam: 2.1 cm EDV(Teich): 126.6 ml LVOT area: 3.5 cm2 ESV(Teich): 79.5 ml Doppler Measurements & Calculations MV E max spike: MV dec slope: Ao V2 max: LV V1 max P.2 cm/sec 367.0 cm/sec2 174.0 cm/sec 4.2 mmHg MV A max spike: MV dec time: 0.21 sec Ao max PG: LV V1 max: 76.2 cm/sec 12.1 mmHg 102.0 cm/sec MV E/A: 1.0 MIGUE(V,D): 2.0 cm2 TV V2 max: PA V2 max: RV V1 max: TR max spike: 50.9 cm/sec 92.3 cm/sec 61.3 cm/sec 305.0 cm/sec TV max P.0 mmHgPA max P.4 mmHg TR max P.2 mmHg RVSP(TR): 40.2mmHg RAP systole: 3.0 mmHg Electronically signed by: Hilda Jonas MD 09/28/2024 05:45PM us Mackenzie Carey SURFACER CV ECHO PROCEDURES Final Res ult * (ABNORMAL) eGFR (09/28/2024 12:13 PM ELECTRONICS LEAD) eGFR 58(L) >=60 mL/min/1. 73 m2 Comment: Interpretive Data Reference Interval Normal >/= 90 mL/min/1.73m2 Mildly decreased* 60 - 89 mL/min/1.73m2 Mildly to moderately decreased 45 - 59 mL/min/1.73m2 Moderately to severely decreased 30 - 44 mL/min/1.73m2 Severely decreased 15 - 29 mL/min/1.73m2 Kidney Failure < 15 mL/min/1.73m2 *Relative to young adult level Estimated glomerular filtration rate is determined by the 2020 CKD-EPI equation recommended by the National Kidney Foundation (A Unifying Approach to GFR Estimation: Recommendations of the NKF-ASK Task Force on Reassessing the Inclusion of Race in Diagnosing Kidney Disease, JASN 202). The CKD-EPI equation should not be used for patients with unstable renal function and has not been validated in children and those over 70. Current interpretive data was last reviewed 2021. Blood 09/28/2024 12:1 3 PM ELECTRONICS LEAD 09/28/2024 12:16 PM ELECTRONICS LEAD us Mackenzie Carey NP LAB BLOOD ORDERABLES Final R esult MARCELINO [address] [facility] Department [place] [address] * Differential, auto (09/28/2024 12:13 PM ELECTRONICS LEAD) Neutrophil abs 6.2 1.5 - 6.5 K/cumm Imm gran abs 0.0 0.0 - 0.1 K/cumm [facility] Lymphocyte abs 1.1 0.8 - 3.3 K/cumm [facility] Monocyte abs 0.7 0.2 - 0.8 K/cumm [facility] Eosinophil abs 0.1 0.0 - 0.5 K/cumm [facility] Basophil abs 0.0 0.0 - 0.1 K/cumm [facility] Neutrophil pct 75.7 % [facility] Comment: Interpretive Data Percent cell count reference ranges are not reported, since discordance with absolute values may lead to misinterpretation of CBC data. Current Interpretive Data was last revised on 2017. Imm gran pct 0.4 % [facility] Comment: Interpretive Data Percent cell count reference ranges are not reported, since discordance with absolute values may lead to misinterpretation of CBC data. Current Interpretive Data was last revised on 2017. Lymphocyte pct 13.5 % [facility] Comment: Interpretive Data Percent cell count reference ranges are not reported, since discordance with absolute values may lead to misinterpretation of CBC data. Current Interpretive Data was last revised on 2017. Monocyte pct 8.9 % [facility] Comment: Interpretive Data Percent cell count reference ranges are not reported, since discordance with absolute values may lead to misinterpretation of CBC data. Current Interpretive Data was last revised on 2017. Eosinophil pct 1.3 % [facility] Comment: Interpretive Data Percent cell count reference ranges are not reported, since discordance with absolute values may lead to misinterpretation of CBC data. Current Interpretive Data was last revised on 2017. Basophil pct 0.2 % [facility] Comment: Interpretive Data Percent cell count reference ranges are not reported, since discordance with absolute values may lead to misinterpretation of CBC data. Current Interpretive Data was last revised on 2017. Blood 09/28/2024 12:1 3 PM ELECTRONICS LEAD 09/28/2024 12:15 PM ELECTRONICS LEAD Mackenzie Carey SURFACER LAB BLOOD ORDERABLES Final R esult Performing Organization Address [facility] de Phone Number [address] [address] * Thyroid Function [place] (09/28/2024 12:13 PM ELECTRONICS LEAD) Pathologist [facility] [place] TSH 1.07 0.30 - 4.20 mcIUnit/mL Blood 09/28/2024 12:1 3 PM ELECTRONICS LEAD 09/28/2024 12:16 PM ELECTRONICS LEAD Mackenzie Carey SURFACER LAB BLOOD ORDERABLES Final R esult Performing Organization Address [facility] de Phone Number [address] [address] * (ABNORMAL) CBC with auto differential (09/28/2024 12:13 PM ELECTRONICS LEAD) Pathologist [facility] [place] WBC 8.2 3.8 - 9.9 K/cumm Hgb 10.6(L) 11.9 - 15.5 g/dL [facility] Hct 34.2(L) 35.6 - 45.5 % [facility] Plt 278 150 - 400 K/cumm [facility] MPV 9.5 9.1 - 12.3 fL [facility] RBC 3.97 3.90 - 5.20 M/cumm [facility] MCV 86.1 81.3 - 96.4 fL [facility] MCH 26.7(L) 27.1 - 33.3 pg [facility] MCHC 31.0(L) 32.3 - 35.7 g/dL [facility] RDW CV 16.5(H) 11.1 - 14.9 % [facility] RDW SD 51.9(H) 35.7 - 48.1 fL [facility] NRBC abs 0.00 0.00 - 0.01 K/cumm [facility] Blood 09/28/2024 12:1 3 PM ELECTRONICS LEAD 09/28/2024 12:15 PM ELECTRONICS LEAD Mackenzie Carey SURFACER LAB BLOOD ORDERABLES Final R esult Performing Organization Address [facility] Co de Phone Number [address] [place] [address] * (ABNORMAL) Phosphorus (09/28/2024 12:13 PM ELECTRONICS LEAD) Phosphorus, pl 2.2(L) 2.3 - 4.5 mg/dL Blood 09/28/2024 12:1 3 PM ELECTRONICS LEAD 09/28/2024 12:16 PM ELECTRONICS LEAD Mackenzie Carey SURFACER LAB BLOOD ORDERABLES Final R esult [address] [place] [address] * Magnesium (09/28/2024 12:13 PM ELECTRONICS LEAD) Magnesium 1.8 1.4 - 2.5 mg/dL Blood 09/28/2024 12:1 3 PM ELECTRONICS LEAD 09/28/2024 12:16 PM ELECTRONICS LEAD Mackenzie Carey SURFACER LAB BLOOD ORDERABLES Final R esult Performing Organization Address City/[facility]/ZIP Co de Phone Number OR[address] [email or web address] [address] * (ABNORMAL) Hemoglobin A1c (09/28/2024 12:13 PM ELECTRONICS LEAD) [facility] Hgb A1C 7.7(H) 4.0 - 5.6 % Estimated Average Glucose 174 mg/dL [facility] Comment: The ADA recommends reporting an estimated Average Glucose (eAG) with all Hemoglobin A1c results using the equation derived from a study of 507 normal and diabetic adults. Minority populations were underrepresented and children were not included. (Diabetes Care 31:3670-9562, 2008). The eAG is not equivalent to a fasting glucose. Blood 09/28/2024 12:1 3 PM ELECTRONICS LEAD 09/28/2024 12:16 PM ELECTRONICS LEAD Mackenzie Carey SURFACER LAB BLOOD ORDERABLES Final [employer] Performing Organization Address [facility] de Phone Number [address] [place] [address] * Basic metabolic panel (09/28/2024 12:13 PM ELECTRONICS LEAD) [facility] Sodium 140 135 - 145 mmol/L Potassium, pl 3.4 3.3 - 4.9 mmol/L [facility] Chloride 104 97 - 110 mmol/L [facility] CO2 28 22 - 32 mmol/L [facility] Anion gap 8 2 - 15 mmol/L [facility] BUN 16 6 - 25 mg/dL [facility] Creatinine 0.97 0.60 - 1.10 mg/dL [facility] Glucose 141 70 - 199 mg/dL [facility] Comment: Delta - Results Reviewed Interpretive Data Fasting glucose >/= 126 mg/dl is diagnostic for diabetes. Fasting is defined as no caloric intake for at least 8 hours. Fasting glucose between 100 mg/dl to 125 mg/dl is diagnostic of prediabetes. In a patient with classic symptoms of hyperglycemia or hyperglycemic crisis, a random glucose >/= 200 mg/dl is diagnostic for diabetes. In the absence of unequivocal hyperglycemia, results should be confirmed by repeat testing. The classification and Diagnosis of Diabetes Diabetes Care 2021; 46: S19-S40. Current interpretive data was last revised 2022. Calcium 9.6 8.5 - 10.3 mg/dL MARCELINO Blood 09/28/2024 12:1 3 PM ELECTRONICS LEAD 09/28/2024 12:16 PM ELECTRONICS LEAD us Mackenzie Carey SURFACER LAB BLOOD ORDERABLES Final R esult MARCELINO [address] [facility] Department [place] [address] * (ABNORMAL) Urinalysis reflex to microscopic and culture Urine (09/28/2024 8:45 AM ELECTRONICS LEAD) Color, ur Straw Yellow Comment:Testing performed by : [address] [address] Clarity, ur Cloudy(A) Clear MARCELINO Comment:Testing performed by : [address] [address] Specific gravity, ur 1.005 1.003 - 1.030 MARCELINO Comment:Testing performed by : [address] [address] pH, urine 7.0 MARCELINO Comment: Interpretive Data U rine pH is affected by diet, medications, systemic acid-base disturbances, and renal tubular function. pH may affect urinary stone formation. For example, urine pH below 6.0 may help reduce the tendency for calcium phosphate stones and pH greater than 6.0 may reduce the tendency for uric acid stone formation. Source: [employer] Current Interpretive Data was last revised on 2017 Testing performed by: [address] [address] Protein, ur ql Trace(A) Negative MARCELINO Comment:Testing performed by : [address] [address] Glucose, ur ql Negative Negative MARCELINO Comment:Testing performed by : [address] [address] Ketones, ur Negative Negative MARCELINO Comment:Testing performed by : [address] [place] [address] Bilirubin, ur Negative Negative MARCELINO Comment:Testing performed by : [facility], [address] [place] [address], [place]., [address] Blood, ur 3+(A) Negative MARCELINO Comment:Testing performed by : [address], [place]., [address] Urobilinogen, ur <2.0 <2.0 mg/dL MARCELINO Comment:Testing performed by : [address], [place]., [address] Nitrite, ur Negative Negative MARCELINO Comment:Testing performed by : [address], [place]., [address] Leukocyte esterase, ur 3+(A) Negative MARCELINO Comment:Testing performed by : [address], [place]., [address] UA reflex comment Reflex to microscopic UA will be performed. MARCELINO Comment:Testing performed by : [address], [place]., [address] Urine 09/28/2024 8:45 AM ELECTRONICS LEAD 09/28/2024 8:48 AM ELECTRONICS LEAD Charo MEANS LAB MICROBIOLOGY - GENERAL O RDERABLES Final Result MARCELINO [address] [facility] Department of Laboratories [place], [place] [id number] * (ABNORMAL) Urinalysis, microscopic only (09/28/2024 8:45 AM ELECTRONICS LEAD) WBC, ur 21-50(A) 0 - 5 /HPF Comment:Testing performed by : [address], [place]., [address] RBC, ur 11-20(A) 0 - 2 /HPF MARCELINO HAYWOOD Comment:Testing performed by : [address], [place]., [address] Bacteria, ur 3+(A) MARCELINO HAYWOOD Comment:Testing performed by : [address], [place]., [address] Culture Reflex Comment Reflex to urine culture will be performed. MARCELINO HAYWOOD Comment:Testing performed by : [facility], [address] [place] [address]., [address] Urine 09/28/2024 8:45 AM ELECTRONICS LEAD 09/28/2024 8:48 AM ELECTRONICS LEAD Charo MEANS LAB URINE ORDERABLES Final R esult Performing Organization Address [facility] Co de Phone Number [facility] [place] [address] * (ABNORMAL) Urine culture Urine (09/28/2024 8:45 AM ELECTRONICS LEAD) Report Final Report: Greater than or equal to 100,000 colonies/mL of Escherichia coli Plus growth of clinically insignificant bacterial tommy. (.) Comment:Testing performed by : [facility], [address] [facility] [place] [address] Organism ESCHERICHIA COLI MARCELINO HAYWOOD Organism PLUS GROWTH OF CLINICALLY INSIGNIFICANT TOMMY. MARCELINO HAYWOOD Urine 09/28/2024 8:45 AM ELECTRONICS LEAD 09/28/2024 12:05 PM ELECTRONICS LEAD Narrative MARCELINO HAYWOOD - 09/30/2024 10:31 AM ELECTRONICS LEAD Urine culture reflexed based upon urinalysis results. Testing performed by [facility] ([phone]) Organism Antibiotic Method Susceptibility Escherichia coli Ampicillin INTERPRETATION Resistant Escherichia coli Cefazolin INTERPRETATION Resistant Escherichia coli Nitrofurantoin INTERPRETATION Resistant Escherichia coli Gentamicin INTERPRETATION Susceptible Escherichia coli Trimethoprim with Sulfamethoxazole IN TERPRETATION Susceptible Escherichia coli Meropenem INTERPRETATION Susceptible Escherichia coli Cefepime INTERPRETATION Susceptible Escherichia coli Ciprofloxacin INTERPRETATION Resistant Escherichia coli Ceftazidime INTERPRETATION Susceptible Escherichia coli Ceftriaxone INTERPRETATION Susceptible Escherichia coli Piperacillin/Tazobactam INTERPRETATIO N Intermediate Escherichia coli Cephalexin INTERPRETATION Resistant Escherichia coli Cefuroxime-axetil INTERPRETATION Resistant Escherichia coli Cefdinir INTERPRETATION Resistant us Charo MEANS LAB MICROBIOLOGY - GENERAL O RDERABLES Final Result Performing Organization Address [facility]/ZIP Co de Phone Number MARCELION [address] [facility] [place] [address] * POCT glucose (09/28/2024 8:44 AM ELECTRONICS LEAD) Glucose, POC 184 70 - 199 mg/dL Comment:Testing performed by : [address] [address] Blood 09/28/2024 8:44 AM ELECTRONICS LEAD 09/28/2024 8:44 AM ELECTRONICS LEAD Jhon Freeman MD LAB POCT ORDERABLES - DEVICE Final Result [place] [address] [facility] Department [place] [address] * Influenza A/B, RSV, and COVID-19 PCR Nasopharyngeal (09/28/2024 4:59 AM ELECTRONICS LEAD) [facility] COVID-19 RNA Negative Negative Comment:Testing performed by : [address] [address] Influenza A RNA Negative Negative [facility] Comment:Testing performed by : [address] [address] Influenza B RNA Negative Negative [facility] Comment:Testing performed by : [address] [address] RSV RNA Negative Negative [facility] Comment: Interpretive data: Testing performed by [facility]. This test is performed using the [employer] Xpert Xpress CoV-2/Flu/RSV plus assay. This is a multiplex, real-time reverse transcriptase PCR assay intended for the qualitative detection of nucleic acid from SARS-CoV-2, influenza A, influenza B, and respiratory syncytial virus. This assay has been cleared by the [place] Food and Drug administration. The performance characteristics have been verified by the [facility]. Results must be considered in the clinical context, and a negative result does not rule out infection. Interpretive Data last revised 2023 Testing performed by: [address] [address] Nasopharyngeal 09/28/2024 4: 59 AM ELECTRONICS LEAD 09/28/2024 5:43 AM ELECTRONICS LEAD Narrative MARCELINO HYAWOOD - 09/28/2024 6:24 AM ELECTRONICS LEAD Is the Patient experiencing symptoms consistent with COVID?->Unknown Jhon Freeman MD LAB MICROBIOLOGY - G ENERAL ORDERABLES Final Result MARCELINO [address] [facility] Department [place] [address] * XR Knee Right 1 or 2 Views (09/28/2024 1:39 AM ELECTRONICS LEAD) Anatomical Region Laterality Modality Lower Extremities, Knee Right Computed Radiography 09/28/2024 1:46 AM ELECTRONICS LEAD Narrative 09/28/2024 1:47 AM ELECTRONICS LEAD EXAM DESCRIPTION: XR KNEE RIGHT 1 OR 2 VIEWS REASON FOR STUDY: worsening pain Fall yesterday right knee pain TECHNIQUE: Frontal and lateral views of the right knee . COMPARISON: 06/13/2023 FINDINGS: BONES/JOINTS: Long-stem total knee arthroplasty reveals no complication. No fracture is seen. SOFT TISSUES: Unremarkable. IMPRESSION: No acute abnormality identified. THIS IS AN ELECTRONICALLY VERIFIED FINAL REPORT 09/28/2024 1:47 AM - Electronically signed by Juan Francisco Campbell M.D. AR: VILMA Report ID: [id number] Reading Location: [id number] Procedure Note Juan Francisco Campbell MD - 09/28/2024 EXAM DESCRIPTION: XR KNEE RIGHT 1 OR 2 VIEWS REASON FOR STUDY: worsening pain Fall yesterday right knee pain TECHNIQUE: Frontal and lateral views of the right knee . COMPARISON: 06/13/2023 FINDINGS: BONES/JOINTS: Long-stem total knee arthroplasty reveals no complication. No fracture is seen. SOFT TISSUES: Unremarkable. IMPRESSION: No acute abnormality identified. THIS IS AN ELECTRONICALLY VERIFIED FINAL REPORT 09/28/2024 1:47 AM - Electronically signed by Juan Francisco Campbell M.D. AR: VILMA Report ID: [id number] Reading Location: [id number] us Donn Reddy Jr., MD IMG XR PROCEDURES Final Result * CT Pelvis WO Contrast (09/27/2024 6:49 PM ELECTRONICS LEAD) Anatomical Region Laterality Modality Body N/A Computed Tomogra phy 09/27/2024 7:28 PM ELECTRONICS LEAD Narrative 09/27/2024 7:40 PM ELECTRONICS LEAD EXAM DESCRIPTION: CT PELVIS WO CONTRAST REASON FOR STUDY: Pelvic fracture, follow up Pt reports generalized weakness x approx 1 week with occasional dizziness upon standing. Pt reports a few days ago noted pain to L hip that radiates down lateral aspect of leg and into L ankle-NKI. Pt reports has been having problems transferring from sitting to standing over the last week or so- becomes shaky and dizzy upon standing. Pt reports today was attempting to get out of chair when slid down to the floor. Pt denies hitting head, LOC. TECHNIQUE: CT scan of the pelvis performed without intravenous and without oral contrast using helical scanning technique. Reconstructed coronal and sagittal MPR images reviewed. All images stored on PACS. Automated exposure control was used as a dose optimization technique for this examination. COMPARISON: Radiographs 09/27/2024, CT 04/15/2020 FINDINGS: The sensitivity for detection of solid visceral lesions is diminished without the use of intravenous contrast. There is no acute fracture. No aggressive osseous lesions. Mild osteopenia. Grade 1 anterolisthesis of L4 on L5. Incompletely imaged lower lumbar spine degenerative disc disease. 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 Sacroiliac joints are normal. Lower lumbar spine facet joint osteoarthritis is incompletely imaged. Instrumented posterior spinal fusion at L4-L5 is incompletely imaged. A sacral stimulator within the right gluteal subcutaneous tissues is present with lead extending to the anterior left presacral soft tissues at the level of the mid sacrum and is intact. There is rectal fecal impaction with no CT evidence of stercoral proctitis. Colonic diverticulosis. Prior hysterectomy. No adnexal masses. The urinary bladder is normal. Imaged portions of the small bowel are unremarkable. There is no evidence of intrapelvic lymphadenopathy. Prominent bilateral inguinal station lymph nodes are present which may be reactive. Arterial calcifications are present. IMPRESSION: 1. No acute osseous abnormality. THIS IS AN ELECTRONICALLY VERIFIED FINAL REPORT 09/27/2024 7:40 PM - Electronically signed by August Lakhani M.D. AT: AT Report ID: [id number] Reading Location: [place] [address] Procedure Note August Lakhani MD - 09/27/2024 EXAM DESCRIPTION: CT PELVIS WO CONTRAST REASON FOR STUDY: Pelvic fracture, follow up Pt reports generalized weakness x approx 1 week with occasional dizzinessupon standing. Pt reports a few days ago noted pain to L hip that radiates down lateral aspect of leg and into L ankle-NKI. Pt reports has been having problems transferring from sitting to standing over the last week or so- becomes shaky and dizzy upon standing. Pt reports today was attempting toget out of chair when slid down to the floor. Pt denies hitting head, LOC. TECHNIQUE: CT scan of the pelvis performed without intravenous and without oral contrast using helical scanning technique. Reconstructedcoronal and sagittal MPR images reviewed. All images stored on PACS. Automated exposure control was used as a dose optimization technique for this examination. COMPARISON: Radiographs 09/27/2024, CT 04/15/2020 FINDINGS: The sensitivity for detection of solid visceral lesions is diminished without the use of intravenous contrast. There is no acute fracture. No aggressive osseous lesions. Mildosteopenia. Grade 1 anterolisthesis of L4 on L5. Incompletely imaged lower lumbarspine degenerative disc disease. 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 Sacroiliac joints are normal. Lower lumbar spine facetjoint osteoarthritis is incompletely imaged. Instrumented posterior spinalfusion at L4-L5 is incompletely imaged. A sacral stimulator within the right gluteal subcutaneous tissues ispresent with lead extending to the anterior left presacral soft tissues at thelevel of the mid sacrum and is intact. There is rectal fecal impaction with no CT evidence of stercoralproctitis. Colonic diverticulosis. Prior hysterectomy. No adnexal masses. Theurinary bladder is normal. Imaged portions of the small bowel are unremarkable. There is no evidence of intrapelvic lymphadenopathy. Prominent bilateral inguinal station lymph nodes are present which may be reactive. Arterial calcifications are present. IMPRESSION: 1. No acute osseous abnormality. THIS IS AN ELECTRONICALLY VERIFIED FINAL REPORT 09/27/2024 7:40 PM - Electronically signed by August Lakhani M.D. AT: AT Report ID: [id number] Reading Location: [id number] Charo MEANS IMG CT PROCEDURES Final Resu lt * XR Hip Left 2 or 3 Views W Pelvis (09/27/2024 4:49 PM ELECTRONICS LEAD) Anatomical Region Laterality Modality Lower Extremities, Hip, Pelvis Left C omputed Radiography 09/27/2024 5:04 PM ELECTRONICS LEAD Narrative 09/27/2024 5:07 PM ELECTRONICS LEAD EXAM DESCRIPTION: XR HIP LEFT 2 OR 3 VIEWS W PELVIS REASON FOR STUDY: accidental injury Pt reports generalized weakness x approx 1 week with occasional dizziness upon standing. Pt reports a few days ago noted pain to L hip that radiates down lateral aspect of leg and into L ankle-NKI. Pt reports has been having problems transferring from sitting to standing over the last week or so- becomes shaky and dizzy upon standing. Pt reports today was attempting to get out of chair when slid down to the floor. Pt denies hitting head, LOC TECHNIQUE: 3 radiographic view(s) of the pelvis and left hip . COMPARISON: 10/08/2012 FINDINGS: BONES/JOINTS: There is some irregularity of the superior and inferior pubic rami on the left which was not apparent on the prior study. This is questionable for fractures. Mild degenerative changes are noted. The bones are somewhat osteopenic. SOFT TISSUES: Within normal limits. IMPRESSION: Irregularity of the superior and inferior pubic rami on the left which is questionable for fractures. CT may be prudent THIS IS AN ELECTRONICALLY VERIFIED FINAL REPORT 09/27/2024 5:07 PM - Electronically signed by Gunnar Perez M.D. KH: MARIE Report ID: [id number] Reading Location: [id number] Procedure Note Gunnar Perez MD - 09/27/2024 EXAM DESCRIPTION: XR HIP LEFT 2 OR 3 VIEWS W PELVIS REASON FOR STUDY: accidental injury Pt reports generalized weakness x approx 1 week with occasional dizzinessupon standing. Pt reports a few days ago noted pain to L hip that radiates down lateral aspect of leg and into L ankle-NKI. Pt reports has been having problems transferring from sitting to standing over the last week or so- becomes shaky and dizzy upon standing. Pt reports today was attempting toget out of chair when slid down to the floor. Pt denies hitting head, LOC TECHNIQUE: 3 radiographic view(s) of the pelvis and left hip . COMPARISON: 10/08/2012 FINDINGS: BONES/JOINTS: There is some irregularity of the superior and inferior pubic rami on the left which was not apparent on the prior study. This is questionable for fractures. Mild degenerative changes are noted.The bones are somewhat osteopenic. SOFT TISSUES: Within normal limits. IMPRESSION: Irregularity of the superior and inferior pubic rami on theleft which is questionable for fractures. CT may be prudent THIS IS AN ELECTRONICALLY VERIFIED FINAL REPORT 09/27/2024 5:07 PM - Electronically signed by Gunnar Perez M.D. KH: MARIE Report ID: [id number] Reading Location: [id number] Charo MEANS IMG XR PROCEDURES Final Resu lt * ECG 12 lead (09/27/2024 4:24 PM ELECTRONICS LEAD) Ventricular Rate EKG/Min 93 BPM [facility] Atrial Rate 93 BPM [facility] NV-Interval (MSEC) 164 ms [facility] QRS-Interval (MSEC) 100 ms [facility] QT-Interval (MSEC) 364 ms [facility] QTc 452 ms [facility] P [place] 11 degrees [facility] R [place] -28 degrees [facility] T [place] 112 degrees [facility] Diagnosis Normal sinus rhythm Left ventricular hypertrophy with repolarization abnormality Possible Lateral infarct , age undetermined 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 ([id number]) on 09/27/2024 9:39:29 PM [facility] 09/27/2024 4:24 PM ELECTRONICS LEAD 09/27/2024 9:39 PM ELECTRONICS LEAD us Charo MEANS ECG ORDERABLES Final Result Performing Organization Address City/[facility] Co de Phone Number [facility] [place] [facility] * (ABNORMAL) eGFR (09/27/2024 4:09 PM ELECTRONICS LEAD) eGFR 57(L) >=60 mL/min/1. 73 m2 Comment: Interpretive Data Reference Interval Normal >/= 90 mL/min/1.73m2 Mildly decreased* 60 - 89 mL/min/1.73m2 Mildly to moderately decreased 45 - 59 mL/min/1.73m2 Moderately to severely decreased 30 - 44 mL/min/1.73m2 Severely decreased 15 - 29 mL/min/1.73m2 Kidney Failure < 15 mL/min/1.73m2 *Relative to young adult level Estimated glomerular filtration rate is determined by the 2020 CKD-EPI equation recommended by the National Kidney Foundation (A Unifying Approach to GFR Estimation: Recommendations of the NKF-ASK Task Force on Reassessing the Inclusion of Race in Diagnosing Kidney Disease, JASN 2020). The CKD-EPI equation should not be used for patients with unstable renal function and has not been validated in children and those over 70. Current interpretive data was last reviewed 2021. Testing performed by: [facility], [address] [place] [address], [place]., [address] Blood 09/27/2024 4:09 PM ELECTRONICS LEAD 09/27/2024 4:33 PM ELECTRONICS LEAD us Charo MEANS LAB BLOOD ORDERABLES Final R esult Performing Organization Address City/State/[facility] Co de Phone Number MARCELINO [address] [facility] Department [place] [address] * (ABNORMAL) Differential, auto (09/27/2024 4:09 PM ELECTRONICS LEAD) Neutrophil abs 13.0(H) 1.5 - 6.5 K/cumm Comment:Testing performed by : [address] [address] Imm gran abs 0.1 0.0 - 0.1 K/cumm MARCELINO Comment:Testing performed by : [address], [place]., [address] Lymphocyte abs 0.3(L) 0.8 - 3.3 K/cumm MARCELINO Comment:Testing performed by : [address] [address] Monocyte abs 0.3 0.2 - 0.8 K/cumm MARCELINO Comment:Testing performed by : [address] [address] Eosinophil abs 0.0 0.0 - 0.5 K/cumm MARCELINO Comment:Testing performed by : [address] [address] Basophil abs 0.0 0.0 - 0.1 K/cumm MARCELINO Comment:Testing performed by : [address] [address] Neutrophil pct 94.8 % MARCELINO Comment: Interpretive Data Percent cell count reference ranges are not reported, since discordance with absolute values may lead to misinterpretation of CBC data. Current Interpretive Data was last revised on 2017. Testing performed by: [address] [address] Imm gran pct 0.7 % MARCELINO Comment: Interpretive Data Percent cell count reference ranges are not reported, since discordance with absolute values may lead to misinterpretation of CBC data. Current Interpretive Data was last revised on 2017. Testing performed by: [address] [address] Lymphocyte pct 2.1 % MARCELINO Comment: Interpretive Data Percent cell count reference ranges are not reported, since discordance with absolute values may lead to misinterpretation of CBC data. Current Interpretive Data was last revised on 2017. Testing performed by: [address] [address] Monocyte pct 2.1 % MARCELINO Comment: Interpretive Data Percent cell count reference ranges are not reported, since discordance with absolute values may lead to misinterpretation of CBC data. Current Interpretive Data was last revised on 2017. Testing performed by: [address] [address] Eosinophil pct 0.1 % MARCELINO Comment: Interpretive Data Percent cell count reference ranges are not reported, since discordance with absolute values may lead to misinterpretation of CBC data. Current Interpretive Data was last revised on 2017. Testing performed by: [address] [address] Basophil pct 0.2 % MARCELINO Comment: Interpretive Data Percent cell count reference ranges are not reported, since discordance with absolute values may lead to misinterpretation of CBC data. Current Interpretive Data was last revised on 2017. Testing performed by: [address] [address] Blood 09/27/2024 4:09 PM ELECTRONICS LEAD 09/27/2024 4:33 PM ELECTRONICS LEAD us Charo MEANS LAB BLOOD ORDERABLES Final R esult MARCELINO [address] [facility] Department [place] [address] * (ABNORMAL) CBC with auto differential (09/27/2024 4:09 PM ELECTRONICS LEAD) WBC 13.8(H) 3.8 - 9.9 K/cumm Comment:Testing performed by : [address] [address] Hgb 13.0 11.9 - 15.5 g/dL MARCELINO HAYWOOD Comment:Testing performed by : [address] [address] Hct 43.0 35.6 - 45.5 % MARCELINO Comment:Testing performed by : [address] [address] Plt 354 150 - 400 K/cumm MARCELINO Comment:Testing performed by : [address] [address] MPV 9.5 9.1 - 12.3 fL MARCELINO Comment:Testing performed by : [address], [address] RBC 4.94 3.90 - 5.20 M/cumm MARCELINO Comment:Testing performed by : [address], [address] MCV 87.0 81.3 - 96.4 fL MARCELINO Comment:Testing performed by : [address] [address] MCH 26.3(L) 27.1 - 33.3 pg MARCELINO Comment:Testing performed by : [address] [address] MCHC 30.2(L) 32.3 - 35.7 g/dL MARCELINO Comment:Testing performed by : [address], [address] RDW CV 16.5(H) 11.1 - 14.9 % MARCELINO Comment:Testing performed by : [address], [address] RDW SD 52.3(H) 35.7 - 48.1 fL MARCELINO Comment:Testing performed by : [address], [address] NRBC abs 0.00 0.00 - 0.01 K/cumm MARCELINO Comment:Testing performed by : [address], [address] Blood 09/27/2024 4:09 PM ELECTRONICS LEAD 09/27/2024 4:33 PM ELECTRONICS LEAD us Charo MEANS LAB BLOOD ORDERABLES Final R esult MARCELINO HAYWOOD [address] [facility] Department [place] [address] * (ABNORMAL) Comprehensive metabolic panel (09/27/2024 4:09 PM ELECTRONICS LEAD) Sodium 135 135 - 145 mmol/L Comment:Testing performed by : [address], [place]., [address] Potassium, pl 3.9 3.3 - 4.9 mmol/L MARCELINO Comment:Testing performed by : [address], [place]., [address] Chloride 96(L) 97 - 110 mmol/L MARCELINO Comment:Testing performed by : [address] [address] CO2 25 22 - 32 mmol/L MARCELINO Comment:Testing performed by : [address], [place]., [address] Anion gap 14 2 - 15 mmol/L MARCELINO Comment:Testing performed by : [address] [address] BUN 21 6 - 25 mg/dL MARCELINO Comment:Testing performed by : [address], [place]., [address] Creatinine 0.98 0.60 - 1.10 mg/dL MARCELINO Comment:Testing performed by : [address] [address] Glucose 309(H) 70 - 199 mg/dL MARCELINO Comment: Interpretive Data Fasting glucose >/= 126 mg/dl is diagnostic for diabetes. Fasting is defined as no caloric intake for at least 8 hours. Fasting glucose between 100 mg/dl to 125 mg/dl is diagnostic of prediabetes. In a patient with classic symptoms of hyperglycemia or hyperglycemic crisis, a random glucose >/= 200 mg/dl is diagnostic for diabetes. In the absence of unequivocal hyperglycemia, results should be confirmed by repeat testing. The classification and Diagnosis of Diabetes Diabetes Care 2021; 46: S19-S40. Current interpretive data was last revised 2022. Testing performed by: [address], [place]., [address] Calcium 10.5(H) 8.5 - 10.3 mg/dL MARCELINO HAYWOOD Comment:Testing performed by : [address] [address] Bilirubin, total 0.4 0.1 - 1.2 mg/dL MARCELINO HAYWOOD Comment:Testing performed by : [address] [address] Protein, pl 7.7 6.5 - 8.5 g/dL MARCELINO Comment:Testing performed by : [address] [address] Albumin 4.4 3.5 - 5.0 g/dL MARCELINO Comment:Testing performed by : [address] [address] Alk phos 119 40 - 130 Units/L MARCELINO HAYWOOD Comment:Testing performed by : [address] [address] ALT 24 7 - 45 Units/L MARCELINO Comment:Testing performed by : [address] [address] AST 29 10 - 45 Units/L MARCELINO Comment:Testing performed by : [address] [address] Blood 09/27/2024 4:09 PM ELECTRONICS LEAD 09/27/2024 4:33 PM ELECTRONICS LEAD us Charo MEANS LAB BLOOD ORDERABLES Final R esult MARCELINO [address] [facility] Department of Laboratories [place], [place] [id number] * (ABNORMAL) Albumin Creatinine Ratio, Urine (11/01/2023 9:30 AM ELECTRONICS LEAD) Albumin Ur 50.5 mg/L MARCELINO HAYWOOD Comment: Interpretive Data No reference range established. Current interpretive data was last revised 2019. Testing performed by: [address] [address] Creatinine Ur 101.6 mg/dL MARCELINO HAYWOOD Comment: Interpretive Data No reference range established. Current interpretive data was last revised 2019. Testing performed by: [facility], [address] [place] [address]., [address] Albumin Creatinine Ratio, Ur 50(H) 1 - 29 mg/g MARCELINO HAYWOOD Comment:Testing performed by : [facility], [address] [place] [address]., [address] Urine 11/01/2023 9:30 AM ELECTRONICS LEAD 11/01/2023 12:14 PM ELECTRONICS LEAD us Donn Bonilla DO LAB URINE ORDERABLES Fin al Result MARCELINO [address] [facility] Department [place] [address] * Dexa Axial Skeleton Bone Density 1 or 2 Site (02/29/2020 9:31 AM CDT) Anatomical Region Laterality Modality Body N/A Radiographic Rosa Isela ging 03/01/2020 10:5 7 AM CDT Narrative 03/01/2020 11:00 AM CDT Patient Name: SHARI KAISER Ordering Dr: Donn Bonilla DO D.O.B: 1940 Exam Date: 02/29/20930 Age: 79 Sex: Female MR#: [id number] Loc: RADIOLOGY REPORT Order #[id number] Bone Density Bone Density Hip/Spine (STD) Signed EXAM DESCRIPTION: Bone Density Hip/Spine (STD) REASON FOR STUDY: 79 year old female with given history of osteoarthritis. Disciplinary Hearing Officer/Model: Bomgar A (S/N [id number]) CLINICAL INFORMATION: Current height: 65.5 inches Weight: 157 pounds Risk factors: Postmenopausal menopause age 49-hysterectomy), fracture as an adult (not secondary to significant trauma), use of glucocorticoids, secondary osteoporosis, history of asthma or emphysema, no regular weight-bearing exercise, drinks caffeinated beverages. COMPARISON: None available. FINDINGS: AP LUMBAR SPINE L1-L3: (L4 excluded due to hardware) Total BMD is 0.989 g/cm2 T-score is -0.3 LEFT HIP: Total BMD is 0.721 g/cm2 T-score is -1.8 Femoral neck BMD is 0.587 g/cm2 T-score is -2.4 Fracture risk assessment (FRAX): 10 year risk for a major osteoporotic fracture is 36 % 10 year risk for a hip fracture is 13 % The FRAX tool has not been validated in patients currently or previously treated with pharmacotherapy for osteoporosis. In such patients, clinical judgement must be exercised in interpreting FRAX scores as the fracture risk may be overestimated. IMPRESSION: Low bone mass. FRAX as above. REFERENCE: Bone mineral density: Normal (T-score above or = -1.0) Low bone mass (T-score between -1.0 and -2.5) replaces the previously used term osteopenia Osteoporosis (T-score = or below -2.5) Medical evaluation for secondary causes of low bone mineral density may be appropriate. FRAX is a World Health Organization validated fracture risk assessment tool that calculates a person's 10 year probability of a major osteoporosis related fracture and hip fracture. According to the National Osteoporosis Foundation guidelines, postmenopausal women and men age 50 or older with low bone mass and a 10 year probability of a major osteoporosis related fracture = or greater than 20% or a 10 year probability of a hip fracture = or greater than 3% should be considered for treatment. For further information, including treatment recommendations, please refer to the 2013 ISCD Official Positions (http://www.iscd.org) and the NOF's Clinician's Guide to Prevention and Treatment of Osteoporosis (http://www.nof.org/professionals/clinical-guidelines) THIS IS AN ELECTRONICALLY VERIFIED FINAL REPORT 03/01/2020 11:00 AM - Electronically signed by Alonzo Canchola M.D. MD: Report ID: [id number] Reading Location: [id number] REPORT ELECTRONICALLY SIGNED IN OTHER VENDOR SYSTEM Resulting Agency Comment O Procedure Note Alonzo Canchola MD - 03/01/2020 Patient Name: SHARI KAISER Dr: Donn BonillaO.B: 1940 Exam Date: 02/29/20930 Age: 79 Sex: Female MR#: [id number] Loc: RADIOLOGY REPORT Order #[id number] Bone Density Bone Density Hip/Spine (STD) Signed EXAM DESCRIPTION: Bone Density Hip/Spine (STD) REASON FOR STUDY: 79 year old female with given history ofosteoarthritis. Disciplinary Hearing Officer/Model: Bomgar A (S/N [id number]) CLINICAL INFORMATION: Current height: 65.5 inches Weight: 157 pounds Risk factors: Postmenopausal menopause age 49-hysterectomy), fracture asan adult (not secondary to significant trauma), use of glucocorticoids,secondary osteoporosis, history of asthma or emphysema, no regular weight-bearing exercise, drinks caffeinated beverages. COMPARISON: None available. FINDINGS: AP LUMBAR SPINE L1-L3: (L4 excluded due to hardware) Total BMD is 0.989 g/cm2 T-score is -0.3 LEFT HIP: Total BMD is 0.721 g/cm2 T-score is -1.8 Femoral neck BMD is 0.587 g/cm2 T-score is -2.4 Fracture risk assessment (FRAX): 10 year risk for a major osteoporotic fracture is 36 % 10 year risk for a hip fracture is 13 % The FRAX tool has not been validated in patients currently or previously treated with pharmacotherapy for osteoporosis. In such patients,clinical judgement must be exercised in interpreting FRAX scores as the fracturerisk may be overestimated. IMPRESSION: Low bone mass. FRAX as above. REFERENCE: Bone mineral density: Normal (T-score above or = -1.0) Low bone mass (T-score between -1.0 and -2.5) replaces thepreviously used term osteopenia Osteoporosis (T-score = or below -2.5) Medical evaluation for secondary causes of low bone mineral density maybe appropriate. FRAX is a World Health Organization validated fracture risk assessmenttool that calculates a person's 10 year probability of a major osteoporosisrelated fracture and hip fracture. According to the National OsteoporosisFoundation guidelines, postmenopausal women and men age 50 or older with low bonemass and a 10 year probability of a major osteoporosis related fracture = or greater than 20% or a 10 year probability of a hip fracture = or greaterthan 3% should be considered for treatment. For further information, including treatment recommendations, pleaserefer to the 2013 ISCD Official Positions (http://www.iscd.org) and the NOF's Clinician's Guide to Prevention and Treatment of Osteoporosis (http://www.nof.org/professionals/clinical-guidelines) THIS IS AN ELECTRONICALLY VERIFIED FINAL REPORT 03/01/2020 11:00 AM - Electronically signed by Alonzo Canchola M.D. 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 [facility] [place] [address] A[facility] [facility] AEST. [facility] Advance Directives For more information, please contact: [phone] Documents on File Type Date Recorded Patient Universal Grinder Set Up Operator Expl anation ADVANCE DIRECTIVE 11/14/2024 DNR ADVANCE DIRECTIVE 10/03/2024 3:26 PM Power of Psychiatric Technician Assistant-Medical * DNR (Latest Code Status on File) Date Activated Date Inactivated Comments 11/14/2024 5:43 PM * LIMITED - No CPR Date Activated Date Inactivated Comments 11/02/2024 5:24 PM 11/14/2024 5:43 PM Question Answer Comments Provide aggressive medical m anagement before a full cardiopulmonary arrest occurs. Use antibiotics, IV Fluids, and medical treatment unless specifically selected below: No intubationNo internal / external pacemaker * Full Code Date Activated Date Inactivated Comments 11/02/2024 5:12 PM 11/02/2024 5:24 PM * Full Code Date Activated Date Inactivated Comments 10/10/2024 9:01 PM 10/17/2024 5:03 PM * Full Code Date Activated Date Inactivated Comments 09/28/2024 12:00 PM 10/08/2024 7:19 PM Care Teams Home Care Giver Relationship Specialty Start Date End Date Donn Bonilla DO [address] [place] [address] [id number] PCP - General Family Medicine 07/05/19 Rc Campo MD [address] [address] PCP - Hospice Attending 11/14/24 Juan Herrera MD [address] [place] [address] [phone] Purse Seiner Cardiovascular Disease 11/14/20 Mona Islas NP [address] [place] [address] [phone] Nurse Practitioner 05/27/23
--- OUTSIDE RECORDS SUMMARY | 2024-12-22 01:05 | XMS_ITS | Encounter Summary ---
Author Organization [facility] Healthcare Address [address] [place] [address] Care Team Providers Care Day Care Teacher Name Role Phone Donn Bonilla DO Primary Care Provider + Juan Herrera MD Unavailable Mona Islas NP Unavailable [phone] Rc Campo MD Unavailable [phone] Reason for Visit * Auth/Cert (Routine) Specialty Diagnoses / Procedures Referred By Contac t Referred To Contact Referral ID Status Reason Start Date Expiration Date Visits Re quested Visits Authorized [id number] 1 1 Encounter Details Date Type Department Care Team (Late st Contact Info) Description 12/21/[address] [facility] Hospice - [address] [place] [address] Cathy Bolden RN SN TRIAGE ENCOUNTER Social History Tobacco Use Types Packs/Day Years Used Date Smoking Tobacco: Never Smokeless Tobacco: Never Alcohol Use Standard Drinks/Week Comments No 0 (1 standard drink = 0.6 oz pur e alcohol) [facility] Utilities Answer Date Recorded In the past 12 months has e electric, gas, oil, or water company threatened to [...] often do you attend chur ch or mandaeism services? Never 11/03/2024 Do you belong to any clubs o r organizations such as scientology groups, unions, fraternal or athletic groups, or [...] any time in the past 12 m onths, were you homeless or living in a [facility] (including now)? No 11/03/2024 Personal Safety Answer Date Recorded Have you ever been in or are you currently in a harmful physical or emotional relationship or is someone making you feel afraid or unsafe? Patient unable to answer 11/02/2024 Comments No Sex and Gender Information Value Date Recorded Sex Assigned at Not on file Legal Sex Female 7:06 PM BULB GROWER Gender Identity Not on file Sexual Orientation Not on file documented as of this encounter Miscellaneous Notes * Triage Note - Cathy Bolden RN - 12/21/2024 8:56 PM CDT Manufacturing Cost Estimator: Libby Relationship to patient: Taurus perez [place] Phone number of contact center rep: [phone] Return call time: 8:59pm Communication details: RE: I NEED TO REPORT AN URGENT X-RAY TO HOSPICE. PLEASE CALL KEKE. Returned call to Libby who states she got the X-ray back on the patient and wanted to update hospice. Reports X-ray says? Nondisplaced fracture is possible and can be evaluated with CT, there is no definite displaced or depressed calvarial fx by plain film. Head trauma/head injury not evaluated by plain film. Intercranial pathology not evaluated by plain film. Further evaluation with CT should be considered as clinically warranted? Libby has placed a call to Dr. Campo and is awaiting call back. Instructed Triage will update the AOC. 9:14pm Spoke with AOC Mona who states JOANA Herrera will follow up in the morning 9:28pm Spoke with Libby and informed her that hospice nurse will follow up in the morning. Libby states that Dr. Campo called back and wants her to send patient to the ER for aval and treat. Asked that patient be sent to a [facility] facility for hospcie to follow up.. 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) - not eligible for IP review until 6 months after positive culture - Colin HAM, RN 11/15/24 11/04/2024 11/04/2024 documented as of this encounter Hospice Visit - Care Plan Visit Details Visit Type -SN Triage Encoun ter Discipline -Retirement Problems Problem Description Start Date Status Goals Interve ntions Pressure Prevention Disciplines: Skilled Disciplines Pressure Prevention 11/14/2024 Active 1 goal linked to scheduled/docume nted intervention 1 goal intervention scheduled/documen samantha in this visit Wound Care Disciplines: Retirement Palliative Wound Management 11/14/2024 Resolved on 12/21/2024 - 1 problem intervention scheduled/documen samantha in this visit Routine Care Disciplines: [facility] All Disciplines Routine Care 11/14/2024 Active - 3 problem interventions scheduled/documen samantha in this visit Extended Care Facility Disciplines: [facility] All Disciplines Admission/Transf er to Extended Care Facility 11/14/2024 Active - 1 problem intervention scheduled/documen samantha in this visit Neurological Deficit Disciplines: [facility] All Disciplines Neurological Deficit 11/14/2024 Active - 3 problem interventions scheduled/documen samantha in this visit Impaired Elimination Disciplines: Retirement Impaired Elimination 11/14/2024 Active - 2 problem interventions scheduled/documen samantha in this visit Altered Nutrition Disciplines: [facility] All Disciplines Altered Nutrition Status 11/14/2024 Active 1 goal linked to scheduled/docume nted intervention 5 problem interventions scheduled/documen samantha in this visit 1 goal intervention scheduled/documen samantha in this visit Pain Disciplines: [facility] All Disciplines Pain 11/14/2024 Active - 6 problem interventions scheduled/documen samantha in this visit Fall Precautions and general safety Disciplines: [facility] All Disciplines Fall precautions and general safety 11/14/2024 Active 1 goal linked to scheduled/docume nted intervention 1 goal intervention scheduled/documen samantha in this visit Wound Care Disciplines: Retirement Palliative Wound Management 12/21/2024 Active - 1 problem intervention scheduled/amayan samantha in this visit Goals Goal Associated Problem Outcome Goal Met? Visit Notes Prevent development of pressure injuries Description: USP goal: The patient will maintain intact skin and avoid the development of pressure injuries ongoing during hospice care. Short term goal: The patient/caregiver will understand and adhere to pressure prevention interventions ongoing during hospice care. Pressure Prevention No Demonstrate improved nutrition Description: Patient/caregiver will demonstrate nutritional needs are met as evidence by satiation of hunger/ thirst and/or by verbalizing understanding of the effects of the disease process on appetite and nutrition. Altered Nutrition No Demonstrate fall and safety precautions Description: Patient/caregiver maintains safe home environment as evidenced by remaining free from falls, injury due to falls, demonstrating safety precautions, and identifying strategies to reduce falls. Fall Precautions and general safety No Interventions Intervention Associated Problem/Goal Status Variance Visit Notes Instruct on Pressure Prevention Description: Instruct patient/caregiver on inspecting the skin regularly for signs of impaired skin integrity, repositioning the patient on an individualized schedule according to the patient's tissue tolerance, skin condition, mobility, medical condition, and treatment goals. Avoid vigorous massage and emphasize the importance of increasing activity and mobility. For bedbound patients instruct to use positioning devices to relieve pressure, and floating heels to prevent friction and sheer. Avoid using donut-shaped devices and foam cutouts for pressure redistribution. Determine if patient is using or needs a pressure reduction surface. Instruct patient/caregiver on using moisture barriers and absorbent pads/briefs as needed, avoiding prolonged skin contact with wet materials, and cleaning and drying skin thoroughly after incontinence episodes. If patient is malnourished instruct patient/caregiver on physician ordered diet, increased fluid intake if not contraindicated, and a list of possible protein sources to promote skin integrity. Problem:Pressure Prevention Goal:Prevent development of pressure injuries Scheduled Perform Dressing Change Description: Perform dressing change: #1 Site: buttocks, Skilled Nurse and Caregiver to perform dressing change as of 11/14/24, Frequency: daily and PRN for excess drainage or dislodgement of dressing. Wound care as follows: cleanse with gentle soap and water , apply EPC cream to wound bed and leave open to air. VORB by JU loomis from Dr. Rodriguez Date Order Received: 11/14/24 Problem:Wound Care Scheduled Equipment and Supplies Description: Order equipment or supplies as necessary Problem:Routine Care Scheduled Pain and Symptom Management Description: PRN Visit for Pain or Symptom Management Problem:Routine Care Scheduled Hospice Skilled Assessment Description: Perform skilled assessment: including vital signs, physical assessment, nutrition, safety and medication oversight. Problem:Routine Care Scheduled Coordinate POC with Facility Description: Coordinate POC with facility Problem:Extended Care Facility Scheduled Assess for neurological deficits Description: Assess patient for neurological deficits that may include abnormal reflexes, change in speech, decreased sensation, loss of balance, change in mental function, vision changes, walking problems, and weakness each visit Problem:Neurological Deficit Scheduled Assess for neurological function Description: Assess patient's neurological function each visit Problem:Neurological Deficit Scheduled Assess Patient/Familyi/Caregiver Understanding and Instruct on Neurological Condition Description: Assess patient/caregiver understanding and instruct on neurological condition including meds, diagnoses, and symptom management. Problem:Neurological Deficit Scheduled Instruct patient/family/caregiver on incontinence managmement Description: Instruct patient/caregiver on urinary incontinence and reinforce education as needed Problem:Impaired Elimination Scheduled Assess Ability to Eliminate Description: Assess patient for difficulty with elimination Problem:Impaired Elimination Scheduled Discuss diet Description: mechanical soft diet as tolerated. Problem:Altered Nutrition Goal:Demonstrate improved nutrition Scheduled Instruct on prevention of pulmonary aspiration Description: Instruct patient/caregiver on prevention of pulmonary aspiration (keep head of bed elevated at 30-45 degrees at all times during administration of feedings). Problem:Altered Nutrition Scheduled Assess for Swallowing Deficit Description: Assess patient for swallowing deficit Problem:Altered Nutrition Scheduled Assess for Signs and Symptoms of Altered Nutrition Description: Assess for signs and symptoms of altered nutrition Problem:Altered Nutrition Scheduled Assess for Nausea/Vomiting and Instruct on Management of Symptoms Description: Assess patient for nausea / vomiting and administer medications as prescribed Problem:Altered Nutrition Scheduled Assess Nutrition and Dietary Intake Description: Assess patient nutrition status and dietary intake Problem:Altered Nutrition Scheduled Assess for signs and symptoms of acute pain Description: Assess patient for signs and symptoms of acute pain each visit Problem:Pain Scheduled Instruct patient/family/caregiver on pharmacological pain management Description: Instruct patient/caregiver on pharmacological pain management Problem:Pain Scheduled Instruct patient/family/caregiver on pain scale Description: Instruct patient/caregiver on pain scales Problem:Pain Scheduled Instruct patient/family/caregiver on non-pharmacological pain management Description: Instruct patient/caregiver on non-pharmacological pain management Problem:Pain Scheduled Assess effectiveness of pain management Description: Assess effectiveness of pain management for patient each visit Problem:Pain Scheduled Assess for signs and symptoms of chronic pain Description: Assess patient for signs and symptoms of chronic pain each visit Problem:Pain Scheduled Assess physical activity tolerance level Description: activity as tolerated. Problem:Fall Precautions and general safety Goal:Demonstrate fall and safety precautions Scheduled Perform Dressing Change Description: Perform dressing change: Site left hand, Skilled Nurse to perform dressing change as of 12/21/24, Frequency daily Wound care as follows: Monitor steri strips to left hand skin tear until healed. TERENCE Murillo Date Order Received: 12/21/24 Time: 943 Problem:Wound Care Scheduled documented in this encounter Care Teams Day Care Teacher Relationship Specialty Start Date End Date Donn Bonilla DO [facility] [address] [address] PCP - General Family Medicine 07/05/19 Rc Campo MD [address] [address] PCP - Hospice Attending 11/14/24 Juan Herrera MD [address] [place] [address] [phone] Sem Manager Cardiovascular Disease 11/14/20 Mona Islas NP [address] [place] [id number] Nurse Practitioner 05/27/23 documented as of this encounter
--- OUTSIDE RECORDS SUMMARY | 2024-12-22 01:05 | XMS_ITS | Encounter Summary ---
Author Organization [facility] Healthcare Address [address] [place] [address] Care Team Providers Care Informatics Coordinator Name Role Phone Donn Bonilla DO Primary Care Provider + Juan Herrera MD Unavailable Mona Islas NP Unavailable [phone] Rc Campo MD Unavailable [phone] Reason for Visit * Auth/Cert (Routine) Specialty Diagnoses / Procedures Referred By Contac t Referred To Contact Referral ID Status Reason Start Date Expiration Date Visits Re quested Visits Authorized [id number] 1 1 Encounter Details Date Type Department Care Team (Late st Contact Info) Description 12/21/2024 Home Care Visit [facility] Hospice - [address] [place] [address] Cathy Bolden RN SN TRIAGE ENCOUNTER Social History Tobacco Use Types Packs/Day Years Used Date Smoking Tobacco: Never Smokeless Tobacco: Never Alcohol Use Standard Drinks/Week Comments No 0 (1 standard drink = 0.6 oz pur e alcohol) [facility] Utilities Answer Date Recorded In the [...] often do you attend chur ch or jainism services? Never 11/03/2024 Do you belong to any clubs o r organizations such as rastafarian groups, unions, fraternal or athletic groups, or [...] were you homeless or living in a assisted (including now)? No 11/03/2024 Personal Safety Answer Date Recorded Have you ever been in or are you currently in a harmful physical or emotional relationship or is someone making you feel afraid or unsafe? Patient unable to answer 11/02/2024 Comments No Sex and Gender Information Value Date Recorded Sex Assigned at Not on file Legal Sex Female 7:06 PM PSYCHIATRIC TECHNICIAN Gender Identity Not on file Sexual Orientation Not on file documented as of this encounter Miscellaneous Notes * Triage Note - Cathy Bolden RN - 12/21/2024 4:12 AM CDT Perfume And Toilet Water Maker: Milagro Relationship to patient: Taurus perez [place] Phone number of hotel supplies salesperson: [phone] Return call time: 4:13am Communication details: RE: REPORTING A SKIN TEAR ON HER HAND. Spoke with Milagro who states patient got a skin tear to the posterior side of her left arm while transferring from her chair to her bed. She cleaned it up and applied steri strips. Also states her nose looks a little bruised to her. Instructed her hospice nurse Sharon is scheduled for a visit today and will be updated. Denies any other needs at this time. Follow up Notified [facility] team documented in this encounter Plan of [...] Visit Type -SN Triage Encoun ter Discipline -Usp Problems Problem Description Start Date Status Goals Interve ntions Pressure Prevention Disciplines: Skilled Disciplines Pressure Prevention 11/14/2024 Active 1 goal linked to scheduled/docume nted intervention 1 goal intervention scheduled/documen samantha in this visit Wound Care Disciplines: [facility] Palliative Wound Management 11/14/2024 Resolved on 12/21/2024 - 1 problem intervention scheduled/documen samantha in this visit Routine Care Disciplines: [facility] All Disciplines Routine Care 11/14/2024 Active - 3 problem interventions scheduled/documen samantha in this visit Extended Care Facility Disciplines: [facility] All Disciplines Admission/Transf er to Extended Care Facility 11/14/2024 Active - 1 problem intervention scheduled/documen samantha in this visit Neurological Deficit Disciplines: [facility] All Disciplines Neurological Deficit 11/14/2024 Active - 3 problem interventions scheduled/documen samantha in this visit Impaired Elimination Disciplines: [facility] Impaired Elimination 11/14/2024 Active - 2 problem interventions scheduled/documen samantha in this visit Altered Nutrition Disciplines: [facility] All Disciplines Altered Nutrition Status 11/14/2024 Active 1 goal linked to scheduled/docume nted intervention 5 problem interventions scheduled/documen samantha in this visit 1 goal intervention scheduled/documen samantha in this visit Pain Disciplines: [facility] All Disciplines Pain 11/14/2024 Active - 6 problem interventions scheduled/documen samantha in this visit Fall Precautions and general safety Disciplines: [facility] All Disciplines Fall precautions and general safety 11/14/2024 Active 1 goal linked to scheduled/docume nted intervention 1 goal intervention scheduled/documen samantha in this visit Wound Care Disciplines: [facility] Palliative Wound Management 12/21/2024 Active - 1 problem intervention scheduled/documen samantha in this visit Goals Goal Associated Problem Outcome Goal Met? Visit Notes Prevent development of pressure injuries Description: intermediate school teacher goal: The patient will maintain intact skin [...] Scheduled documented in this encounter Care Teams Informatics Coordinator Relationship Specialty Start Date End Date Donn Bonilla DO [address] [place] [id number] PCP - General Family Medicine 07/05/19 Rc Campo MD [address] [address] PCP - Hospice Attending 11/14/24 Juan Herrera MD [address] [place] [id number] Date Pitter Cardiovascular Disease 11/14/20 Mona Islas NP [address] [place] [id number] Nurse Practitioner 05/27/23 documented as of this encounter
--- OUTSIDE RECORDS SUMMARY | 2024-12-22 01:05 | XMS_ITS | Encounter Summary ---
Author Organization [facility] Address [address] [place] [id number] Care Team Providers Care Business Transformation Consultant Name Role Phone Amparo Faustin MD Unavailable [phone] Donn Bonilla DO Primary Care Provider [phone] Encounter Details Date Type Department Care Team (Late st Contact Info) Description 02/21/2018 Abstract [facility] at [address] [address] Tera Doyle MA Social History Tobacco Use Types Packs/Day Years Used Date Smoking Tobacco: Never Smokeless Tobacco: Never Alcohol Use Standard Drinks/Week Comments No 0 (1 standard drink = 0.6 oz pur e alcohol) Comments No Sex and Gender Information Value Date Recorded Sex Assigned at Female 09/01/2018 2:46 PM SALOON KEEPER Legal Sex Female 4:57 PM CDT Gender Identity Female 09/01/2018 2:46 PM SALOON KEEPER Sexual Orientation Straight 09/01/2018 2: 46 PM SALOON KEEPER 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 Not on file Not on file Not on fi le documented as of this encounter Plan of Treatment Not on file documented as of this encounter Procedures Procedure Name Priority Date/Time Associated Diagnosis Comments COMPREHENSIVE METABOLIC PANEL Routine 02/03/2018 LIPID PANEL Routine 02/03/2018 HEMOGLOBIN, GLYCOSYLATED Routine 02/03/2018 CK (CPK) Routine 02/03/2018 documented in this encounter Results * HEMOGLOBIN, GLYCOSYLATED (02/03/2018) HGB A1C 6.6 02/03/2018 us [facility] Edited Resul t - Final * CK (CPK) (02/03/2018) CPK 36 02/03/2018 us Doc [facility] Final Result * (ABNORMAL) COMPREHENSIVE METABOLIC PANEL (02/03/2018) SODIUM S/P/B 140 POTASSIUM S/P/B 4.3 CO2 28 CHLORIDE S/P/B 104 GLUCOSE 117 mg/dL CALCIUM S/P/B 10.7 BUN 15 CREATININE S/P/B 1.05(A) 0.5 - 1.0 EGFR AFR. AMER. 60 <=90 EGFR NON-AFR. AMER. 52 <=90 ALKALINE PHOSPHATASE S/P/B 60 ALT 12 AST 13 BILIRUBIN TOTAL S/P/B 0.3 ALBUMIN S/P/B 4.1 3.5 - 5.0 TOTAL PROTEIN S/P/B 6.3 GLOBULIN 2.2 02/03/2018 us Doc [facility] Final Result * LIPID PANEL (02/03/2018) CHOLESTEROL 256 HDL 59 TRIGLYCERIDES 371 NON HDL CHOLESTEROL 197 LDL (CALCULATED) 140 02/03/2018 us Doc [facility] Final Result documented in this encounter Visit Diagnoses Not on filedocumented in this encounter Additional Health Concerns Infection Onset Date Last Indicated Resolved Time COVID-19 Rule Out 09/04/2021 09/04/2021 09/04/2021 9:49 AM SALOON KEEPER COVID-19 Rule Out 09/04/2021 09/04/2021 09/04/2021 11:43 AM SALOON KEEPER COVID-19 Confirmed 09/04/2021 09/04/2021 12:32 AM SALOON KEEPER COVID-19 Rule Out 06/07/2022 06/07/2022 06/07/2022 8:15 AM CDT COVID-19 Rule Out 06/11/2022 06/11/2022 06/11/2022 11:13 AM CDT documented as of this encounter Care Teams Business Transformation Consultant Relationship Specialty Start Date End Date Donn Bonilla DO [address] [facility] [place] [address] PCP - General FAMILY PRACTICE 06/14/19 Amparo Faustin MD [address] [place] [address] [place] Former CARDIOVASCULAR DISEASE 09/22/17 documented as of this encounter
--- OUTSIDE RECORDS SUMMARY | 2024-12-22 01:05 | XMS_ITS | Encounter Summary ---
Author Organization [facility] Healthcare Address [address] [place] [address] Care Team Providers Care Gutter Hanger Name Role Phone Donn Bonilla DO Primary Care Provider + Juan Herrera MD Unavailable Mona Islas NP Unavailable [phone] Rc Campo MD Unavailable [phone] Reason for Visit * Auth/Cert (Routine) Specialty Diagnoses / Procedures Referred By Contvalerie t Referred To Contact Referral ID Status Reason Start Date Expiration Date Visits Re quested Visits Authorized [id number] 1 1 Encounter Details Date Type Department Care Team (Late st Contact Info) Description 12/21/[address] [facility] Hospice - [address] [place] [address] Emilie Blair RN SN TRIAGE ENCOUNTER Social History Tobacco Use Types Packs/Day Years Used Date Smoking Tobacco: Never Smokeless Tobacco: Never Alcohol Use Standard Drinks/Week Comments No 0 (1 standard drink = 0.6 oz pur e alcohol) [facility] Utilities Answer Date Recorded In the [...] often do you attend chur ch or restorationist services? Never 11/03/2024 Do you belong to any clubs o r organizations such as yazidi groups, unions, fraternal or athletic groups, or [...] were you homeless or living in a skilled nursing (including now)? No 11/03/2024 Personal Safety Answer Date Recorded Have you ever been in or are you currently in a harmful physical or emotional relationship or is someone making you feel afraid or unsafe? Patient unable to answer 11/02/2024 Comments No Sex and Gender Information Value Date Recorded Sex Assigned at Not on file Legal Sex Female 7:06 PM RESIDENTIAL CAREGIVER Gender Identity Not on file Sexual Orientation Not on file documented as of this encounter Miscellaneous Notes * Triage Note - Emilie Blair, RN - 12/21/2024 8:45 AM CDT Mixer And Blender: Michelle Relationship to patient: Veronicaanant perez Arab Phone number of director personal: Return call time: [phone] Communication details: Michelle stated that patient might have fell during the night and left hand is limp and has some bruising elsewhere. Contacted Sharon who reports that she is about 15 minutes away. Returned call to Michelle and informed her that hospice is aware of the situation and the assistant branch operations manager is about 15 minutes away. Michelle states appreciation for the return call and quick response, stating that if Sharon could pull her whenever she arrives to discuss the patient's condition that would be great. Sharon updated. Follow-up: Spoke with Sharon documented in this encounter Plan of Treatment [...] Visit Type -SN Triage Encoun ter Discipline -Nursing Home Problems Problem Description Start Date Status Goals Interve ntions Pressure Prevention Disciplines: Skilled Disciplines Pressure Prevention 11/14/2024 Active 1 goal linked to scheduled/docume nted intervention 1 goal intervention scheduled/documen samantha in this visit Wound Care Disciplines: Nursing Home Palliative Wound Management 11/14/2024 Resolved on 12/21/2024 - 1 problem intervention scheduled/documen samantha in this visit Routine Care Disciplines: [facility] All Disciplines Routine Care 11/14/2024 Active - 3 problem interventions scheduled/documen samantha in this visit Extended Care Facility Disciplines: [facility] All Disciplines Admission/Transf er to Extended Care Facility 11/14/2024 Active - 1 problem intervention scheduled/documen samantha in this visit Neurological Deficit Disciplines: [facility] All Disciplines Neurological Deficit 11/14/2024 Active - 3 problem interventions scheduled/documen samantha in this visit Impaired Elimination Disciplines: Nursing Home Impaired Elimination 11/14/2024 Active - 2 problem interventions scheduled/documen samantha in this visit Altered Nutrition Disciplines: [facility] All Disciplines Altered Nutrition Status 11/14/2024 Active 1 goal linked to scheduled/docume nted intervention 5 problem interventions scheduled/documen samantha in this visit 1 goal intervention scheduled/documen samantha in this visit Pain Disciplines: [facility] All Disciplines Pain 11/14/2024 Active - 6 problem interventions scheduled/documen samantha in this visit Fall Precautions and general safety Disciplines: [facility] All Disciplines Fall precautions and general safety 11/14/2024 Active 1 goal linked to scheduled/docume nted intervention 1 goal intervention scheduled/documen samantha in this visit Wound Care Disciplines: Nursing Home Palliative Wound Management 12/21/2024 Active - 1 problem intervention scheduled/documen samantha in this visit Goals Goal Associated Problem Outcome Goal Met? Visit Notes Prevent development of pressure injuries Description: [facility] goal: The patient will maintain intact skin [...] TERENCE Murillo Date Order Received: 12/21/24 Time: 0944 Problem:Wound Care Scheduled documented in this encounter Care Teams Gutter Hanger Relationship Specialty Start Date End Date Donn Bonilla DO [address] [place] [id number] PCP - General Family Medicine 07/05/19 Rc Campo MD [address] [address] PCP - Hospice Attending 11/14/24 Juan Herrera MD [address] [place] [id number] Personnel Officer Cardiovascular Disease 11/14/20 Mona Islas, VANDANA [address] [place] [id number] Nurse Practitioner 05/27/23 documented as of this encounter
--- OUTSIDE RECORDS SUMMARY | 2024-12-22 01:05 | XMS_ITS | Encounter Summary ---
Author Organization [facility] Healthcare Address [address] [place] [address] Care Team Providers Care Office Clerk Name Role Phone Donn Bonilla DO Primary Care Provider + Juan Herrera MD Unavailable Mona Islas NP Unavailable [phone] Rc Campo MD Unavailable [phone] Reason for Visit * Auth/Cert (Routine) Specialty Diagnoses / Procedures Referred By Contvalerie t Referred To Contact Referral ID Status Reason Start Date Expiration Date Visits Re quested Visits Authorized [id number] 1 1 Encounter Details Date Type Department Care Team (Late st Contact Info) Description 12/21/[address] [facility] Hospice - [address] [place] [address] Neeta Gagnon MSW [facility] PHONE CALL Social History Tobacco Use Types Packs/Day Years Used Date Smoking Tobacco: Never Smokeless Tobacco: Never Alcohol Use Standard Drinks/Week Comments No 0 (1 standard drink = 0.6 oz pur e alcohol) [facility] Utilities Answer Date Recorded In [...] often do you attend chur ch or restoration services? Never 11/03/2024 Do you belong to any clubs o r organizations such as holiness groups, unions, fraternal or athletic groups, or [...] were you homeless or living in a alf (including now)? No 11/03/2024 Personal Safety Answer Date Recorded Have you ever been in or are you currently in a harmful physical or emotional relationship or is someone making you feel afraid or unsafe? Patient unable to answer 11/02/2024 Comments No Sex and Gender Information Value Date Recorded Sex Assigned at Not on file Legal Sex Female 7:06 PM MILITARY PILOT Gender Identity Not on file Sexual Orientation Not on file documented as of this encounter Plan of [...] - Care Plan Visit Details Visit Type -[facility] Phon e Call Discipline -Medical Social Work Problems Problem Description Start Date Status Goals Interve ntions Routine Care Disciplines: [facility] All Disciplines Routine Care 11/14/2024 Active - 3 problem interventions scheduled/documen samantha in this visit Extended Care Facility Disciplines: [facility] All Disciplines Admission/Transf er to Extended Care Facility 11/14/2024 Active - 1 problem intervention scheduled/documen samantha in this visit Neurological Deficit Disciplines: [facility] All Disciplines Neurological Deficit 11/14/2024 Active - 3 problem interventions scheduled/documen samantha in this visit Altered Nutrition Disciplines: [facility] All Disciplines Altered Nutrition Status 11/14/2024 Active 1 goal linked to scheduled/documen samantha intervention 5 problem interventions scheduled/documen samantha in this visit 1 goal intervention scheduled/documen samantha in this visit Pain Disciplines: [facility] All Disciplines Pain 11/14/2024 Active - 6 problem interventions scheduled/documen samantha in this visit Fall Precautions and general safety Disciplines: [facility] All Disciplines Fall precautions and general safety 11/14/2024 Active 1 goal linked to scheduled/documen samantha intervention 1 goal intervention scheduled/documen samantha in this visit [facility] Emotional Support Needs Disciplines: Social Work Deficit related to emotional support. 11/15/2024 Active 1 goal linked to scheduled/documen samantha intervention 1 goal intervention scheduled/documen samantha in this visit Goals Goal Associated Problem Outcome Goal Met? Visit Notes Demonstrate improved nutrition Description: Patient/caregiver will demonstrate [...] falls. Fall Precautions and general safety No Increase emotional support Description: Patient/ family/ caregiver understands impact of illness as evidenced by verbalizing acceptance of the disease process. [facility] Emotional Support Needs No Interventions Intervention Associated Problem/Goal Status Variance Visit Notes Equipment and Supplies Description: Order equipment or [...] diagnoses, and symptom management. Problem:Neurological Deficit Scheduled Discuss diet Description: mechanical soft diet [...] safety Goal:Demonstrate fall and safety precautions Scheduled Provide Emotional Support Description: Provide emotional support Problem:[facility] [employer] [employer] Emotional Support Needs Goal:Increase emotional support Scheduled documented in this encounter Care Teams Office Clerk Relationship Specialty Start Date End Date Donn Bonilla DO [address] [place] [id number] PCP - General Family Medicine 07/05/19 Rc Campo MD [address] [address] PCP - Hospice Attending 11/14/24 Juan Herrera MD [address] [place] [address] [id number] Political Researcher Cardiovascular Disease 11/14/20 Mona Islas NP [address] [place] [id number] Nurse Practitioner 05/27/23 documented as of this encounter
--- OUTSIDE RECORDS SUMMARY | 2024-12-22 01:05 | XMS_ITS | Clinical Summary ---
Author Organization [facility] Address [address] [place] [address] Care Team Providers Care Service Attendant Name Role Phone Donn Bonilla DO Primary Care Provider + Juan Herrera MD Unavailable Mona Islas NP Unavailable [phone] Cmapo MD Unavailable [phone] Allergies Active Allergy Reactions Criticality Noted Date [...] Indications: severe pain with opioid tolerance, dyspnea Active LORazepam (ATIVAN) 0.5 mg tabletIndication s:anxiety,pain, dyspnea, sleep, nausea Take 0.5 mg by mouth every 2 (two) hours as needed for anxiety (pain, dyspnea, sleep, nausea). Indications: anxious, pain, dyspnea, sleep, nausea Active hyoscyamine (LEVSIN) 0.125 mg SL tabletIndication s:Sialorrhea Take 0.125 mg by mouth every 4 (four) hours as needed (terminal secretions). Indications: excessive saliva production Active bisacodyL (DULCOLAX) 10 mg suppositoryIndic ations:constipat ion Insert 10 mg into the rectum daily as needed for constipation. Indications: constipation Active acetaminophen (TYLENOL) 650 mg suppositoryIndic ations:Fever,Hea dache Disorder,Pain Insert 650 mg into the rectum every 4 (four) hours as needed for fever, headaches or pain. Indications: fever, headache, pain Active menthol-zinc oxide 0.44-20.6 % ointmentIndicati ons:skin [...] 09/24/2020 Assessment & Plan (09/24/2020 7:33 PM FAMILY SUPPORT WORKER): Advised to get labs now, ordered STAT CBC, CMP, and lipase. Instructed to go to ER overnight for worsening symptoms. Recommended calling tomorrow to schedule follow-up with PCP. Subconjunctival hemorrhage of right eye 09/24/19 21 Assessment & Plan (09/24/2020 7:32 PM FAMILY SUPPORT WORKER): Advised not to stop Xarelto without consulting with PCP and instructed to keep upcoming appointment with reversal print inspector. 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 Pelvic fracture 01/15/2020 Recurrent falls while walking 01/15/2020 Restless leg syndrome 01/15/2020 Dupuytren contracture 01/15/2020 Chronic kidney disease (CKD), stage III (moderat e) 07/05/2019 Lumbar spinal stenosis 07/05/2019 OAB (overactive bladder) 07/05/2019 Liver mass 06/21/2018 Hernia, inguinal, unilateral 06/09/2018 KIMBERLY (acute kidney injury) ([facility]) 05/20/2018 Assessment & Plan (02/02/2022 2:53 PM CDT): - resolved Chronic deep vein thrombosis (DVT) of proximal vein of lower extremity ([facility]) 05/20/2018 Weakness 05/19/2018 DM2 (diabetes mellitus, type [...] reglan Assessment & Plan (09/24/2020 7:31 PM FAMILY SUPPORT WORKER): Chronic, stable, controlled with medication-continued on BID Pepcid, advised follow-up with PCP to discuss EGD. Hiatal hernia 04/11/2018 Depression 04/11/2018 History of deep venous throm bosis (DVT) of distal vein of right lower extremity 04/11/2018 Primary osteoarthritis of left knee 02/11/2018 Overview (02/11/2018): Added automatically from request for surgery [id number] History of esophageal stricture 10/25/2017 Neuropathy 07/21/2017 Low iron 06/24/2016 Dysphagia 01/24/2015 Assessment & Plan (09/24/2020 7:32 PM FAMILY SUPPORT WORKER): Chronic, worsening, with history of esophageal strictures, [...] 10/21/2022 Assessment & Plan (09/24/2020 7:33 PM FAMILY SUPPORT WORKER): Advised to get labs now, ordered STAT [...] 07/05/2019 Extrinsic asthma with exacerbation 05/08/2003 07/05/2019 Encounters Date Type Department Care Team Description 12/21/2024 9:00 AM CDT Home Care Visit [facility] [address] [facility] [address] [place] [address] Sharon Avila, JU SN HOSPICE VISIT 12/21/2024 Home Care Visit [facility] [address] [facility] [address] [place] [address] Cathy Bolden RN SN TRIAGE ENCOUNTER 12/21/2024 Home Care Visit [facility] [address] [facility] [address] [place] [address] Neeta Gagnon [facility] HOSPICE PHONE CALL 12/21/2024 Home Care Visit [facility] [address] [facility] [address] [place] [address] Sharon Avila, RN CASE COMMUNICATION 12/21/2024 Home Care Visit [facility] [address] [facility] [address] [place] [address] Emilie Blair RN SN TRIAGE ENCOUNTER 12/21/2024 Home Care Visit [facility] [address] [facility] [address] [place] [address] Emilie Blair, JU SN TRIAGE ENCOUNTER 12/21/2024 Home Care Visit [facility] [address] [facility] [address] [place] [address] Cathy Bolden RN SN TRIAGE ENCOUNTER 12/20/2024 Plan of Care Documentation [address] [place] [address] 12/18/2024 2:00 PM CDT Home Care Visit [facility] [address] [place], [place] [address]y [address] [place] [address] Sharon Avila, JU SN HOSPICE VISIT 12/16/2024 Home Care Visit [address] [place] [address] Leeanne Avila, JU SN TRIAGE ENCOUNTER 12/14/2024 10:00 AM CDT Home Care Visit [facility] [address] [place] [address] Sharon Avila, RN SN HOSPICE VISIT 12/13/2024 2:00 PM CDT Home Care Visit [address] [place] [address] [address] INTERPRETER HOSPICE VISIT 12/13/2024 12:00 PM CDT Home Care Visit [address] [place] [address] Neeta Gagnon FLOOR HELPER FLOOR HELPER HOSPICE VISIT 12/13/2024 11:00 AM CDT Home Care Visit [address] [place] [address] Kaushik Smith CNA AIDE HOME VISIT 12/12/2024 Home Care Visit [address] [place] [address] Dania Shelton RN SN TRIAGE ENCOUNTER 12/11/2024 12:00 PM CDT Home Care Visit [address] [place] [address] Sharon Avila, RN SN HOSPICE VISIT 12/09/2024 Home Care Visit [address] [place] [address] Norris Goldstein RN SN TRIAGE ENCOUNTER 12/07/2024 9:30 AM CDT Home Care Visit [address] [place] [address] Sharon Avila, RN SN HOSPICE VISIT 12/07/2024 Home Care Visit [address] [place] [address] Sharon Avila, RN CASE COMMUNICATION 12/06/2024 11:00 AM CDT Home Care Visit [address] [place] [address] Luis Nealannal, DRILLING MACHINE OPERATOR AIDE HOME VISIT 12/06/2024 Plan of Care Documentation [address] [place] [address] 12/04/2024 12:30 PM CDT Home Care Visit [address] [place] [address] Sharon Avila, RN SN HOSPICE VISIT 12/01/2024 12:00 PM CDT Home Care Visit [address] [place] [address] Kaushik Smith, DRILLING MACHINE OPERATOR AIDE HOME VISIT 11/30/2024 1:00 PM CDT Home Care Visit [address] [place] [address] Sharon Avila, RN SN HOSPICE VISIT 11/27/2024 11:00 AM CDT Home Care Visit [address] [place] [address] Siri Goodrich RN SN HOSPICE VISIT 11/24/2024 10:00 AM CDT Home Care Visit [address] [place] [address] Kaushik Smith, DRILLING MACHINE OPERATOR AIDE HOME VISIT 11/23/2024 11:55 AM CDT Home Care Visit [address] [place] [address] Sharon Avila, RN SN HOSPICE VISIT 11/22/2024 12:30 PM CDT Home Care Visit [address] [place] [address] Naomie Darby, JU SN HOSPICE VISIT 11/22/2024 11:00 AM CDT Home Care Visit [address] [place] [address] York, Neeta, FLOOR HELPER FLOOR HELPER HOSPICE VISIT 11/22/2024 Home Care Visit [address] [place] [address] Sharon Avila, RN CASE COMMUNICATION 11/22/2024 Home Care Visit [address] [place] [address] Emilie Blair, RN SN TRIAGE ENCOUNTER 11/22/2024 Plan of Care Documentation [address] [place] [address] 11/22/2024 Home Care Visit [address] [place] [address] Sharon Avila, RN CASE COMMUNICATION 11/22/2024 Home Care Visit [address] [place] [address] Sharon Avila, RN CASE COMMUNICATION 11/22/2024 Home Care Visit [address] [place] [address] Emilie Blair, RN SN TRIAGE ENCOUNTER 11/22/2024 Home Care Visit [address] [place] [address] Cathy Bolden RN SN TRIAGE ENCOUNTER 11/20/2024 10:30 AM CDT Home Care Visit [address] [place] [address] Sharon Avila, RN SN HOSPICE VISIT 11/19/2024 Home Care Visit [address] [place] [address] Bandar Angeles RN SN TRIAGE ENCOUNTER 11/17/2024 11:00 AM CDT Home Care Visit [address] [place] [address] Siri Goodrich, JU SN HOSPICE VISIT 11/16/2024 6:00 PM CDT Home Care Visit [facility] [address] [place] [address] [address] [place] [address] Elfego Alvarez, RN SN HOSPICE VISIT 11/16/2024 2:30 PM CDT Home Care Visit [facility] [address] [place] [address] [address] [place] [address] Luis Luna M.A. [facility] HOSPICE ASSESSMENT 11/16/2024 Home Care Visit [address] [place] [address] Miranda Garcia, RN SN TRIAGE ENCOUNTER 11/16/2024 Home Care Visit [address] [place] [address] Miranda Gracia, RN SN TRIAGE ENCOUNTER 11/16/2024 Home Care Visit [address] [place] [address] Cathy Bolden RN SN TRIAGE ENCOUNTER 11/15/2024 11:30 AM CDT Home Care Visit [address] [place] [address] Siri Goodrich, JU SN HOSPICE VISIT 11/15/2024 11:15 AM CDT Home Care Visit [address] [place] [address] Neeta Gagnon [facility] HOSPICE ASSESSMENT 11/15/2024 Home Care Visit [address] [place] [address] Neeta Gagnon [facility] HOSPICE PHONE CALL 11/15/2024 Home Care Visit [address] [place] [address] Anh Park, RN SN TRIAGE ENCOUNTER 11/15/2024 Orders Only [facility] [address] [place] [address] Daniel Rodriguez MD 11/14/2024 12:30 PM CDT Home Care Visit [address] [place] [address] Divya Whittaker, JU SN HOSPICE COMPREHENSIVE ASSESSMENT 11/14/2024 Plan of Care Documentation [address] [place] [address] 11/02/2024 12:26 PM FAMILY SUPPORT WORKER - 11/14/2024 2:18 PM CDT Hospital Encounter [facility] [address] [facility] [address] [place] [address] Gee Yao DO Smith, MD Audrey Santos, MD Julio Nicholson, Nahid Girggs MD Altered mental status, unspecified altered mental status type (Primary Dx); Elevated troponin I level; Severe dementia, unspecified dementia type, unspecified whether behavioral, psychotic, or mood disturbance or anxiety (HCC) Discharge Disposition: Discharge to a terminal operations manager care hospital 11/01/2024 Telephone [facility] Medical [facility] [address] [place] [phone] Donn Bonilla DO Medical Question/Miscellaneo us 10/30/2024 Telephone [facility] [address] [place] [phone] Donn Bonilla DO TRAM Questions 10/10/2024 2:11 PM FAMILY SUPPORT WORKER - 10/17/2024 12:56 PM FAMILY SUPPORT WORKER Hospital Encounter [facility] [address] [address] [place] [address] Iliana Erazo MD Gaspe Mudiyanselage, MD Audrey Cardoza, MD Julio Nicholson, Nahid Griggs MD Sepsis due to pneumonia (HCC) (Primary Dx); Influenza A; KIMBERLY (acute kidney injury); Prerenal azotemia; Acute cystitis with hematuria; Type 2 diabetes mellitus with stage 3b chronic kidney disease, without long-term current use of insulin (HCC) [E11.22, N18.32]; Frequent UTI [N39.0] Discharge Disposition: Discharge to SNF 10/10/2024 TRAM IP Outreach [facility] Care Organization [address] [place] [address] Zunilda Thompson LPN 10/10/2024 Nurse Triage [facility] Care [address] [place] [address] [place] [phone] Donn Bonilla, DO 10/02/[address] [place] [phone] Donn Bonilla, DO 09/27/2024 8:26 PM FAMILY SUPPORT WORKER - 10/08/2024 3:05 PM FAMILY SUPPORT WORKER Hospital Encounter [address] [address] Donn Reddy Jr., MD Freeman, MD Guillermo Mendoza David J., MD Bezuneh, MD Jostin Vila Cesar, MD Mustafa, Saim, DO Saravanan, Pathanjali, MD Weakness (Primary Dx); Fall, initial encounter; Dehydration; Constipation, unspecified constipation type; Muscular deconditioning; Restless leg syndrome; Hyperglycemia Discharge Disposition: Discharge to home, home health skilled care from Last 3 Months Immunizations Immunization Administration Dates Next Due DTaP, Unspecified 06/25/2016 Influenza, Quad, Adjuvantate d, Intramuscular 06/17/2020 Influenza, Quadrivalent, Hig h Dose, Preservative Free, Intrr 05/21/2023,07/22/2022,06/16/2021 Influenza, Trivalent, High D ose, Split, Preservative Free, Intramuscular 07/18/2024,06/02/2019,05/30/2018,06/09,06/25/2016 Influenza, Trivalent, Preser vative Free, Intramuscular 07/17/2015 Influenza, Unspecified 06/02/2019,05/30/2018, Pfizer SARS-CoV-2 Monovalent Vaccination (12+ Yrs) PURPLE 01/25/2021,12/28/2020 Pneumococcal Conjugate PCV 13 06/03/2016 Pneumococcal Polysaccharide PPV23 06/02/2019 Tdap 06/25/2016 Surgical History Surgery Date Site/Laterality Comments BACK SURGERY Back Surgery - (Added by TW Conv) KNEE SURGERY Right x3 TEMPOROMANDIBULAR JOINT ARTHROPLASTY Bila teral x6 LUMBAR FUSION HYSTERECTOMY REPLACEMENT TOTAL KNEE Right REVISION TOTAL KNEE ARTHROPLASTY Right ABCESS DRAINAGE Right I&D of right knee infection CHOLECYSTECTOMY WRIST SURGERY Right CATARACT EXTRACTION, BILATERAL CARDIAC CATHETERIZATION . E', [id number]? 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 Lumbar spinal stenosis Hyperlipidemia Family History Medical History Relation Name Comments WWII Father Stroke Maternal Grandmother Cancer Mother Family history of cancer - (Added by TW Conv) Diabetes Mother Family history of diabetes mellitus - (Added by TW Conv) Heart disease Sister Relation Name Status Comments Father (Age 32) Maternal Grandmother Mother (Age 81) Sister Alive Social History Tobacco Use Types Packs/Day Years Used Date Smoking Tobacco: Never Smokeless Tobacco: Never Tobacco Cessation:Counseling Given: Not Answered Alcohol Use Standard Drinks/Week Comments No 0 (1 standard drink = 0.6 oz pur e alcohol) gripNote Utilities Answer Date Recorded In the past 12 months has [employer], oil, or water [employer] threatened to shut off services in your [...] 11/03/2024 How often do you attend chur or orthodoxy services? Never 11/03/2024 Do you belong to any clubs o r organizations such as anabaptism groups, unions, fraternal or athletic groups, or [...] any time in the past 12 m [facility], were you homeless or living in a halfway (including now)? No 11/03/2024 Personal Safety Answer Date Recorded Have you ever been in or are you currently in a harmful physical or emotional relationship or is someone making you feel afraid or unsafe? Patient unable to answer 11/02/2024 Comments No Sex and Gender Information Value Date Recorded Sex Assigned at Not on file Legal Sex Female 7:06 PM FAMILY SUPPORT WORKER Gender Identity Not on file Sexual Orientation Not on file Obstetrics History Last Filed Vital Signs Vital Sign Reading [...] 11/14/2024 3:00 PM CDT Plan of Treatment Health Maintenance Due Date Last Done Comments Dilated Eye Exam 1941 Foot Exam 1941 Hepatitis B Screening 1959 Zoster Vaccine (1 of 2) 1991 Osteoporosis Screening-Bone Density Scan 02/28/2022 02/29/2020 Covid-19 Vaccine (2023-2 5 season) 2024 01/25/2021, 12/28/2020 Well Visit 65+ 10/27/2024 10/27/2023, 10/01, 09/18/2021, Additional history exists Albumin Creatinine Ratio, Urine 10/31/2024 , 10/21/2022 Hemoglobin A1C 03/28/2025 09/28/2024, 10/01, 03/08/2023, Additional history exists Depression Screening 11/02/2025 11/02/2024, 11/02/2024, 09/27/2024, Additional history exists Lipid Panel 11/03/2025 11/03/2024, 10/01, 03/08/2023, Additional history exists eGFR 11/10/2025 11/10/2024, 10/28, 11/08/2024, Additional history exists Fall Risk Assessment 11/14/2025 11/14/2024, 07/18/2024, 10/21/2022, Additional history exists DTaP/Tdap/Td Vaccine (3 - Td or Tdap) 06/25/2026 06/25/2016, 06/25/2016 Pneumococcal vaccine 65+ Completed 06/02/2019, 12/2015 Influenza Vaccine Completed 07/18/2024, , 07/22/2022, Additional history exists Medical Devices Implanted Type Area Warp Coiler Device Identifier Shelf Expiration Date Model / Serial / Lot [employer] 3122-040 Smartset Medium Viscosity Cement 40gm Bone Sterile - [id number] Implanted:Qty: 1 on 04/12/2018 by Adrian Powell MD at [facility] [employer] [id number] 07/29/2019 3122-040 / / [employer] 3122-040 Smartset Medium Viscosity Cement 40gm Bone Sterile - [id number] Implanted:Qty: 1 on 04/12/2018 by Adrian Powell MD at [facility] [employer] [id number] 06/29/2019 3122-040 / / [employer] [id number] Attune 5mm Cruciate Retaining Fix Bearing Knee 5 Insert Tibial - [id number] Implanted:Qty: 1 on 04/12/2018 by Adrian Powell MD at [facility] [employer] [id number] 12/27/2022 [id number] / / [employer] [id number] Attune Cemented Cruciate Retaining Knee Left 5 Narrow Component - [id number] Implanted:Qty: 1 on 04/12/2018 by Adrian Powell MD at [facility] [employer] [id number] 12/28/2027 [id number] / / [employer] [id number] Attune S+ Cement Fix Bearing Knee 5 Baseplate Tibial - [id number] Implanted:Qty: 1 on 04/12/2018 by Adrian Powell MD at [facility] [employer] [facility] [id number] 09/29/2027 [id number] / / Procedures Procedure Name Priority Date/Time [...] GLUCOSE DEVICE Routine 11/05/2024 1 :22 AM FAMILY SUPPORT WORKER POCT GLUCOSE DEVICE Routine 11/04/2024 1 0:34 PM FAMILY SUPPORT WORKER URINALYSIS, MICROSCOPIC ONLY Routine 11/04/2024 6:17 PM FAMILY SUPPORT WORKER URINE CULTURE Routine 11/04/2024 6:17 PM FAMILY SUPPORT WORKER URINALYSIS AND REFLEX TO MICROSCOPIC AND CULTURE Routine 11/04/2024 6:17 PM FAMILY SUPPORT WORKER POCT GLUCOSE DEVICE Routine 11/04/2024 5 :07 PM FAMILY SUPPORT WORKER APTT Routine 11/04/2024 2:21 PM FAMILY SUPPORT WORKER DIFFERENTIAL AUTO Routine 11/04/2024 8:5 4 AM FAMILY SUPPORT WORKER APTT Timed 11/04/2024 8:54 AM FAMILY SUPPORT WORKER CBC WITH AUTO DIFFERENTIAL Routine 11/04/2024 8:54 AM FAMILY SUPPORT WORKER POCT GLUCOSE DEVICE Routine 11/04/2024 8 :47 AM FAMILY SUPPORT WORKER POCT GLUCOSE DEVICE Routine 11/04/2024 3 :35 AM FAMILY SUPPORT WORKER APTT Timed 11/04/2024 12:10 AM FAMILY SUPPORT WORKER POCT GLUCOSE DEVICE Routine 11/03/2024 1 1:02 PM FAMILY SUPPORT WORKER POCT GLUCOSE DEVICE Routine 11/03/2024 7 :11 PM FAMILY SUPPORT WORKER APTT Timed 11/03/2024 4:26 PM FAMILY SUPPORT WORKER POCT GLUCOSE DEVICE Routine 11/03/2024 4 :01 PM FAMILY SUPPORT WORKER POCT GLUCOSE DEVICE Routine 11/03/2024 1 1:57 AM FAMILY SUPPORT WORKER TRANSTHORACIC ECHO (TTE) LIMITED/FOLLOW UP WO DOPPLER/CF W CONTRAST Routine 11/03/2024 11:55 AM FAMILY SUPPORT WORKER APTT Timed 11/03/2024 9:36 AM FAMILY SUPPORT WORKER POCT GLUCOSE DEVICE Routine 11/03/2024 8 :00 AM FAMILY SUPPORT WORKER POCT GLUCOSE DEVICE Routine 11/03/2024 4 :09 AM FAMILY SUPPORT WORKER DIFFERENTIAL AUTO Routine 11/03/2024 2:2 1 AM FAMILY SUPPORT WORKER APTT Timed 11/03/2024 2:21 AM FAMILY SUPPORT WORKER CBC WITH AUTO DIFFERENTIAL Routine 11/03/2024 2:21 AM FAMILY SUPPORT WORKER LIPID PANEL Routine 11/03/2024 2:21 AM FAMILY SUPPORT WORKER POCT GLUCOSE DEVICE Routine 11/03/2024 1 2:21 AM FAMILY SUPPORT WORKER POCT GLUCOSE DEVICE Routine 11/02/2024 8 :31 [address] CHEST ABDOMEN PELVIS W CONTRAST IP Routine 11/02/2024 8:01 PM FAMILY SUPPORT WORKER TROPONIN T HIGH-SENSITIVITY 6-HOUR Timed 11/02/2024 7:24 PM FAMILY SUPPORT WORKER POCT GLUCOSE DEVICE Routine 11/02/2024 6 :48 PM FAMILY SUPPORT WORKER MAGNESIUM Add-On 11/02/2024 5:54 PM FAMILY SUPPORT WORKER APTT STAT 11/02/2024 5:54 PM FAMILY SUPPORT WORKER CBC WITHOUT DIFFERENTIAL STAT 11/02/2024 5:54 PM FAMILY SUPPORT WORKER PROTIME-INR STAT 11/02/2024 5:54 PM FAMILY SUPPORT WORKER BLOOD CULTURE STAT 11/02/2024 5:54 PM FAMILY SUPPORT WORKER BLOOD CULTURE STAT 11/02/2024 5:54 PM FAMILY SUPPORT WORKER TROPONIN T HIGH-SENSITIVITY 4-HR Timed 11/02/2024 4:15 PM FAMILY SUPPORT WORKER SEPSIS LACTATE WITH REFLEX Timed 11/02/2024 3:15 PM FAMILY SUPPORT WORKER TROPONIN T HIGH-SENSITIVITY 2-HOUR Timed 11/02/2024 3:02 [address] HEAD WO CONTRAST ED 11/02/2024 2 :16 PM FAMILY SUPPORT WORKER INFLUENZA A/B, RSV, AND COVID-19 PCR STAT 11/02/2024 1:59 PM FAMILY SUPPORT WORKER XR CHEST 1 VIEW ED Urgent/IP Urgent 11/02/2024 1:38 PM FAMILY SUPPORT WORKER ECG 12-LEAD STAT 11/02/2024 1:19 PM FAMILY SUPPORT WORKER URINALYSIS, MICROSCOPIC ONLY STAT 11/02/2024 12:51 PM FAMILY SUPPORT WORKER URINE CULTURE Add-On 11/02/2024 12:51 PM FAMILY SUPPORT WORKER URINALYSIS AND REFLEX TO MICROSCOPIC AND CULTURE STAT 11/02/2024 12:51 PM FAMILY SUPPORT WORKER CRP (ACUTE PHASE) STAT 11/02/2024 12: 39 PM FAMILY SUPPORT WORKER ERYTHROCYTE SEDIMENTATION RATE STAT 11/02/2024 12:39 PM FAMILY SUPPORT WORKER TROPONIN T HIGH-SENSITIVITY SERIES (BASELINE, 2HR, 4HR, 6HR) STAT 11/02/2024 12:39 PM FAMILY SUPPORT WORKER TROPONIN T HIGH-SENSITIVITY STAT 11/02/2024 12:39 PM FAMILY SUPPORT WORKER EGFR STAT 11/02/2024 12:39 PM FAMILY SUPPORT WORKER DIFFERENTIAL AUTO STAT 11/02/2024 12: 39 PM FAMILY SUPPORT WORKER SEPSIS LACTATE WITH REFLEX STAT 11/02/2024 12:39 PM FAMILY SUPPORT WORKER COMPREHENSIVE METABOLIC PANEL STAT 11/02/2024 12:39 PM FAMILY SUPPORT WORKER CBC WITH AUTO DIFFERENTIAL STAT 11/02/2024 12:39 PM FAMILY SUPPORT WORKER COVID-19 CORONAVIRUS RNA Routine 10/17/2024 10:20 AM FAMILY SUPPORT WORKER POCT GLUCOSE DEVICE Routine 10/17/2024 8 :41 AM FAMILY SUPPORT WORKER POCT GLUCOSE DEVICE Routine 10/16/2024 8 :09 PM FAMILY SUPPORT WORKER POCT GLUCOSE DEVICE Routine 10/16/2024 4 :18 PM FAMILY SUPPORT WORKER POCT GLUCOSE DEVICE Routine 10/16/2024 1 1:37 AM FAMILY SUPPORT WORKER POCT GLUCOSE DEVICE Routine 10/16/2024 8 :58 AM FAMILY SUPPORT WORKER POCT GLUCOSE DEVICE Routine 10/15/2024 9 :04 PM FAMILY SUPPORT WORKER POCT GLUCOSE DEVICE Routine 10/15/2024 4 :04 PM FAMILY SUPPORT WORKER POCT GLUCOSE DEVICE Routine 10/15/2024 1 :17 PM FAMILY SUPPORT WORKER POCT GLUCOSE DEVICE Routine 10/15/2024 9 :12 AM FAMILY SUPPORT WORKER EGFR Routine 10/15/2024 5:04 AM FAMILY SUPPORT WORKER DIFFERENTIAL AUTO Routine 10/15/2024 5:0 4 AM FAMILY SUPPORT WORKER CBC WITH AUTO DIFFERENTIAL Routine 10/15/2024 5:04 AM FAMILY SUPPORT WORKER COMPREHENSIVE METABOLIC PANEL Routine 10/15/2024 5:04 AM FAMILY SUPPORT WORKER POCT GLUCOSE DEVICE Routine 10/14/2024 8 :00 PM FAMILY SUPPORT WORKER POCT GLUCOSE DEVICE Routine 10/14/2024 4 :28 PM FAMILY SUPPORT WORKER POCT GLUCOSE DEVICE Routine 10/14/2024 9 :03 AM FAMILY SUPPORT WORKER EGFR Routine 10/14/2024 5:09 AM FAMILY SUPPORT WORKER DIFFERENTIAL AUTO Routine 10/14/2024 5:0 9 AM FAMILY SUPPORT WORKER CBC WITH AUTO DIFFERENTIAL Routine 10/14/2024 5:09 AM FAMILY SUPPORT WORKER COMPREHENSIVE METABOLIC PANEL Routine 10/14/2024 5:09 AM FAMILY SUPPORT WORKER POCT GLUCOSE DEVICE Routine 10/13/2024 9 :39 PM FAMILY SUPPORT WORKER POCT GLUCOSE DEVICE Routine 10/13/2024 5 :05 PM FAMILY SUPPORT WORKER POCT GLUCOSE DEVICE Routine 10/13/2024 1 :15 PM FAMILY SUPPORT WORKER POCT GLUCOSE DEVICE Routine 10/13/2024 8 :15 AM FAMILY SUPPORT WORKER EGFR Routine 10/13/2024 5:17 AM FAMILY SUPPORT WORKER DIFFERENTIAL AUTO Routine 10/13/2024 5:1 7 AM FAMILY SUPPORT WORKER CBC WITH AUTO DIFFERENTIAL Routine 10/13/2024 5:17 AM FAMILY SUPPORT WORKER COMPREHENSIVE METABOLIC PANEL Routine 10/13/2024 5:17 AM FAMILY SUPPORT WORKER POCT GLUCOSE DEVICE Routine 10/12/2024 8 :39 PM FAMILY SUPPORT WORKER POCT GLUCOSE DEVICE Routine 10/12/2024 5 :40 PM FAMILY SUPPORT WORKER POCT GLUCOSE DEVICE Routine 10/12/2024 5 :01 PM FAMILY SUPPORT WORKER POCT GLUCOSE DEVICE Routine 10/12/2024 1 1:14 AM FAMILY SUPPORT WORKER EGFR Routine 10/12/2024 9:15 AM FAMILY SUPPORT WORKER DIFFERENTIAL AUTO Routine 10/12/2024 9:1 5 AM FAMILY SUPPORT WORKER CBC WITH AUTO DIFFERENTIAL Routine 10/12/2024 9:15 AM FAMILY SUPPORT WORKER COMPREHENSIVE METABOLIC PANEL Routine 10/12/2024 9:15 AM FAMILY SUPPORT WORKER POCT GLUCOSE DEVICE Routine 10/12/2024 7 :46 AM FAMILY SUPPORT WORKER POCT GLUCOSE DEVICE Routine 10/11/2024 9 :10 PM FAMILY SUPPORT WORKER POCT GLUCOSE DEVICE Routine 10/11/2024 3:37 PM FAMILY SUPPORT WORKER POCT GLUCOSE DEVICE Routine 10/11/2024 1 1:20 AM FAMILY SUPPORT WORKER POCT GLUCOSE DEVICE Routine 10/11/2024 7 :52 AM FAMILY SUPPORT WORKER MAGNESIUM Routine 10/11/2024 5:35 AM FAMILY SUPPORT WORKER EGFR Routine 10/11/2024 5:35 AM FAMILY SUPPORT WORKER DIFFERENTIAL AUTO Routine 10/11/2024 5:3 5 AM FAMILY SUPPORT WORKER CBC WITH AUTO DIFFERENTIAL Routine 10/11/2024 5:35 AM FAMILY SUPPORT WORKER COMPREHENSIVE METABOLIC PANEL Routine 10/11/2024 5:35 AM FAMILY SUPPORT WORKER MRSA ONLY (STAPHYLOCOCCUS AUREUS) PCR Routine 10/10/2024 9:32 PM FAMILY SUPPORT WORKER POCT GLUCOSE DEVICE Routine 10/10/2024 9 :23 PM FAMILY SUPPORT WORKER TROPONIN T HIGH-SENSITIVITY 6-HOUR Timed 10/10/2024 8:52 PM FAMILY SUPPORT WORKER TROPONIN T HIGH-SENSITIVITY 2-HOUR Timed 10/10/2024 4:43 PM FAMILY SUPPORT WORKER URINALYSIS, MICROSCOPIC ONLY STAT 10/10/2024 4:16 PM FAMILY SUPPORT WORKER URINE CULTURE STAT 10/10/2024 4:16 PM FAMILY SUPPORT WORKER BLOOD CULTURE STAT 10/10/2024 4:16 PM FAMILY SUPPORT WORKER URINALYSIS AND REFLEX TO MICROSCOPIC AND CULTURE STAT 10/10/2024 4:16 PM FAMILY SUPPORT WORKER CT CHEST ABDOMEN PELVIS W CONTRAST ED 10/10/2024 3:34 PM FAMILY SUPPORT WORKER TROPONIN T HIGH-SENSITIVITY SERIES (BASELINE, 2HR, 4HR, 6HR) STAT 10/10/2024 2:54 PM FAMILY SUPPORT WORKER SEPSIS LACTATE WITH REFLEX Timed 10/10/2024 2:54 PM FAMILY SUPPORT WORKER INFLUENZA A/B, RSV, AND COVID-19 PCR STAT 10/10/2024 2:54 PM FAMILY SUPPORT WORKER EGFR STAT 10/10/2024 12:10 PM FAMILY SUPPORT WORKER DIFFERENTIAL AUTO STAT 10/10/2024 12: 10 PM FAMILY SUPPORT WORKER SEPSIS LACTATE WITH REFLEX Routine 10/10/2024 12:10 PM FAMILY SUPPORT WORKER COMPREHENSIVE METABOLIC PANEL STAT 10/10/2024 12:10 PM FAMILY SUPPORT WORKER CBC WITH AUTO DIFFERENTIAL STAT 10/10/2024 12:10 PM FAMILY SUPPORT WORKER CT HEAD WO CONTRAST ED 10/10/2024 1 1:40 AM FAMILY SUPPORT WORKER XR CHEST 1 VIEW ED 10/10/2024 11:25 AM FAMILY SUPPORT WORKER ECG 12-LEAD STAT 10/10/2024 11:02 AM FAMILY SUPPORT WORKER POCT GLUCOSE DEVICE Routine 10/10/2024 1 0:38 AM FAMILY SUPPORT WORKER POCT GLUCOSE DEVICE Routine 10/08/2024 1 1:13 AM FAMILY SUPPORT WORKER POCT GLUCOSE DEVICE Routine 10/08/2024 8 :49 AM FAMILY SUPPORT WORKER POCT GLUCOSE DEVICE Routine 10/07/2024 7 :26 PM FAMILY SUPPORT WORKER POCT GLUCOSE DEVICE Routine 10/07/2024 4 :03 PM FAMILY SUPPORT WORKER POCT GLUCOSE DEVICE Routine 10/07/2024 1 1:23 AM FAMILY SUPPORT WORKER POCT GLUCOSE DEVICE Routine 10/07/2024 7 :19 AM FAMILY SUPPORT WORKER POCT GLUCOSE DEVICE Routine 10/06/2024 8 :43 PM FAMILY SUPPORT WORKER POCT GLUCOSE DEVICE Routine 10/06/2024 4 :13 PM FAMILY SUPPORT WORKER POCT GLUCOSE DEVICE Routine 10/06/2024 1 1:39 AM FAMILY SUPPORT WORKER POCT GLUCOSE DEVICE Routine 10/06/2024 7 :33 AM FAMILY SUPPORT WORKER POCT GLUCOSE DEVICE Routine 10/05/2024 7 :48 PM FAMILY SUPPORT WORKER POCT GLUCOSE DEVICE Routine 10/05/2024 3 :29 PM FAMILY SUPPORT WORKER POCT GLUCOSE DEVICE Routine 10/05/2024 1 1:29 AM FAMILY SUPPORT WORKER POCT GLUCOSE DEVICE Routine 10/05/2024 7 :29 AM FAMILY SUPPORT WORKER POCT GLUCOSE DEVICE Routine 10/04/2024 8 :48 PM FAMILY SUPPORT WORKER POCT GLUCOSE DEVICE Routine 10/04/2024 5 :36 PM FAMILY SUPPORT WORKER POCT GLUCOSE DEVICE Routine 10/04/2024 3 :37 PM FAMILY SUPPORT WORKER POCT GLUCOSE DEVICE Routine 10/04/2024 1 1:20 AM FAMILY SUPPORT WORKER POCT GLUCOSE DEVICE Routine 10/04/2024 7 :24 AM FAMILY SUPPORT WORKER EGFR Routine 10/04/2024 5:02 AM FAMILY SUPPORT WORKER DIFFERENTIAL AUTO Routine 10/04/2024 5:0 2 AM FAMILY SUPPORT WORKER BASIC METABOLIC PANEL Routine 10/04/2024 5:02 AM FAMILY SUPPORT WORKER CBC WITH AUTO DIFFERENTIAL Routine 10/04/2024 5:02 AM FAMILY SUPPORT WORKER POCT GLUCOSE DEVICE Routine 10/03/2024 7 :27 PM FAMILY SUPPORT WORKER POCT GLUCOSE DEVICE Routine 10/03/2024 4 :19 PM FAMILY SUPPORT WORKER POCT GLUCOSE DEVICE Routine 10/03/2024 1 1:26 AM FAMILY SUPPORT WORKER EGFR Routine 10/03/2024 11:17 AM FAMILY SUPPORT WORKER COMPREHENSIVE METABOLIC PANEL Routine 10/03/2024 11:17 AM FAMILY SUPPORT WORKER POCT GLUCOSE DEVICE Routine 10/03/2024 7 :33 AM FAMILY SUPPORT WORKER POCT GLUCOSE DEVICE Routine 10/02/2024 1 1:19 PM FAMILY SUPPORT WORKER POCT GLUCOSE DEVICE Routine 10/02/2024 7 :41 PM FAMILY SUPPORT WORKER POCT GLUCOSE DEVICE Routine 10/02/2024 4 :58 PM FAMILY SUPPORT WORKER POCT GLUCOSE DEVICE Routine 10/02/2024 1 1:43 AM FAMILY SUPPORT WORKER POCT GLUCOSE DEVICE Routine 10/02/2024 7 :28 AM FAMILY SUPPORT WORKER EGFR Routine 10/02/2024 3:50 AM FAMILY SUPPORT WORKER DIFFERENTIAL AUTO Routine 10/02/2024 3:5 0 AM FAMILY SUPPORT WORKER CBC WITH AUTO DIFFERENTIAL Routine 10/02/2024 3:50 AM FAMILY SUPPORT WORKER COMPREHENSIVE METABOLIC PANEL Routine 10/02/2024 3:50 AM FAMILY SUPPORT WORKER POCT GLUCOSE DEVICE Routine 10/01/2024 8 :27 PM FAMILY SUPPORT WORKER TROPONIN T HIGH-SENSITIVITY Routine 10/01/2024 5:03 PM FAMILY SUPPORT WORKER POCT GLUCOSE DEVICE Routine 10/01/2024 4 :46 PM FAMILY SUPPORT WORKER AMMONIA Routine 10/01/2024 1:59 PM FAMILY SUPPORT WORKER SEPSIS LACTATE WITH REFLEX STAT 10/01/2024 1:59 PM FAMILY SUPPORT WORKER TROPONIN T HIGH-SENSITIVITY Routine 10/01/2024 1:59 PM FAMILY SUPPORT WORKER ECG 12-LEAD Routine 10/01/2024 1:05 PM FAMILY SUPPORT WORKER POCT GLUCOSE DEVICE Routine 10/01/2024 1 2:08 PM FAMILY SUPPORT WORKER CTA HEAD NECK W WO CONTRAST ED Urgent/IP Urgent 10/01/2024 11:35 AM FAMILY SUPPORT WORKER POCT GLUCOSE DEVICE Routine 10/01/2024 1 0:52 AM FAMILY SUPPORT WORKER CT STROKE PROTOCOL WO CONTRAST ED Urgent/IP Urgent 10/01/2024 10:39 AM FAMILY SUPPORT WORKER POCT GLUCOSE DEVICE Routine 10/01/2024 8 :12 AM FAMILY SUPPORT WORKER EGFR STAT 10/01/2024 12:18 AM FAMILY SUPPORT WORKER DIFFERENTIAL AUTO STAT 10/01/2024 12: 18 AM FAMILY SUPPORT WORKER PHOSPHORUS STAT 10/01/2024 12:18 AM FAMILY SUPPORT WORKER MAGNESIUM STAT 10/01/2024 12:18 AM FAMILY SUPPORT WORKER BASIC METABOLIC PANEL STAT 10/01/2024 12:18 AM FAMILY SUPPORT WORKER LACTATE STAT 10/01/2024 12:18 AM FAMILY SUPPORT WORKER CBC WITH AUTO DIFFERENTIAL STAT 10/01/2024 12:18 AM FAMILY SUPPORT WORKER XR CHEST 1 VIEW ED Urgent/IP Urgent 10/01/2024 12:03 AM FAMILY SUPPORT WORKER POCT GLUCOSE DEVICE Routine 09/30/2024 1 0:19 PM FAMILY SUPPORT WORKER POCT GLUCOSE DEVICE Routine 09/30/2024 4 :03 PM FAMILY SUPPORT WORKER POCT GLUCOSE DEVICE Routine 09/30/2024 1 1:04 AM FAMILY SUPPORT WORKER POCT GLUCOSE DEVICE Routine 09/30/2024 7 :25 AM FAMILY SUPPORT WORKER EGFR Routine 09/30/2024 4:27 AM FAMILY SUPPORT WORKER DIFFERENTIAL AUTO Routine 09/30/2024 4:2 7 AM FAMILY SUPPORT WORKER BASIC METABOLIC PANEL Routine 09/30/2024 4:27 AM FAMILY SUPPORT WORKER CBC WITH AUTO DIFFERENTIAL Routine 09/30/2024 4:27 AM FAMILY SUPPORT WORKER POCT GLUCOSE DEVICE Routine 09/29/2024 7 :36 PM FAMILY SUPPORT WORKER POCT GLUCOSE DEVICE Routine 09/29/2024 4 :13 PM FAMILY SUPPORT WORKER POCT GLUCOSE DEVICE Routine 09/29/2024 1 1:25 AM FAMILY SUPPORT WORKER POCT GLUCOSE DEVICE Routine 09/29/2024 1 1:23 AM FAMILY SUPPORT WORKER FOLATE Add-On 09/29/2024 10:58 AM FAMILY SUPPORT WORKER VITAMIN B12 Add-On 09/29/2024 10:58 AM FAMILY SUPPORT WORKER IRON PROFILE W/ IBC Add-On 09/29/2024 1 0:58 AM FAMILY SUPPORT WORKER FERRITIN Add-On 09/29/2024 10:58 AM FAMILY SUPPORT WORKER POCT GLUCOSE DEVICE Routine 09/29/2024 7 :56 AM FAMILY SUPPORT WORKER ECG 12-LEAD Routine 09/29/2024 7:17 AM FAMILY SUPPORT WORKER EGFR Routine 09/29/2024 6:21 AM FAMILY SUPPORT WORKER DIFFERENTIAL AUTO Routine 09/29/2024 6:2 1 AM FAMILY SUPPORT WORKER CBC WITH AUTO DIFFERENTIAL Routine 09/29/2024 6:21 AM FAMILY SUPPORT WORKER PHOSPHORUS Routine 09/29/2024 6:21 AM FAMILY SUPPORT WORKER MAGNESIUM Routine 09/29/2024 6:21 AM FAMILY SUPPORT WORKER COMPREHENSIVE METABOLIC PANEL Routine 09/29/2024 6:21 AM FAMILY SUPPORT WORKER POCT GLUCOSE DEVICE Routine 09/29/2024 2 :02 AM FAMILY SUPPORT WORKER POCT GLUCOSE DEVICE Routine 09/28/2024 8 :40 PM FAMILY SUPPORT WORKER POCT GLUCOSE DEVICE Routine 09/28/2024 5 :39 PM FAMILY SUPPORT WORKER TRANSTHORACIC ECHO (TTE) COMPLETE W DOPPLER/CF WO CONTRAST Routine 09/28/2024 4:40 PM FAMILY SUPPORT WORKER EGFR STAT 09/28/2024 12:13 PM FAMILY SUPPORT WORKER DIFFERENTIAL AUTO STAT 09/28/2024 12: 13 PM FAMILY SUPPORT WORKER HEMOGLOBIN A1C STAT 09/28/2024 12:13 PM FAMILY SUPPORT WORKER PHOSPHORUS STAT 09/28/2024 12:13 PM FAMILY SUPPORT WORKER MAGNESIUM STAT 09/28/2024 12:13 PM FAMILY SUPPORT WORKER THYROID FUNCTION CASCADE STAT 09/28/2024 12:13 PM FAMILY SUPPORT WORKER BASIC METABOLIC PANEL STAT 09/28/2024 12:13 PM FAMILY SUPPORT WORKER CBC WITH AUTO DIFFERENTIAL STAT 09/28/2024 12:13 PM FAMILY SUPPORT WORKER URINALYSIS, MICROSCOPIC ONLY STAT 09/28/2024 8:45 AM FAMILY SUPPORT WORKER URINE CULTURE STAT 09/28/2024 8:45 AM FAMILY SUPPORT WORKER URINALYSIS AND REFLEX TO MICROSCOPIC AND CULTURE STAT 09/28/2024 8:45 AM FAMILY SUPPORT WORKER POCT GLUCOSE DEVICE Routine 09/28/2024 8 :44 AM FAMILY SUPPORT WORKER INFLUENZA A/B, RSV, AND COVID-19 PCR STAT 09/28/2024 4:59 AM FAMILY SUPPORT WORKER XR KNEE RIGHT 1 OR 2 VIEWS ED 09/28/2024 1:39 AM FAMILY SUPPORT WORKER CT PELVIS WO CONTRAST ED 09/27/2024 6:49 PM FAMILY SUPPORT WORKER XR HIP LEFT W PELVIS 2 OR 3 VIEWS ED 09/27/2024 4:49 PM FAMILY SUPPORT WORKER ECG 12-LEAD STAT 09/27/2024 4:24 PM FAMILY SUPPORT WORKER EGFR STAT 09/27/2024 4:09 PM FAMILY SUPPORT WORKER DIFFERENTIAL AUTO STAT 09/27/2024 4:0 9 PM FAMILY SUPPORT WORKER COMPREHENSIVE METABOLIC PANEL STAT 09/27/2024 4:09 PM FAMILY SUPPORT WORKER CBC WITH AUTO DIFFERENTIAL STAT 09/27/2024 4:09 PM FAMILY SUPPORT WORKER ALBUMIN CREATININE RATIO, URINE Routine 11/01/2023 9:30 AM FAMILY SUPPORT WORKER Medicare annual wellness visit, subsequent Neuropathy Fibromyalgia Dyslipidemia Type 2 diabetes mellitus with stage 3b chronic kidney disease, without long-term current use of insulin (HCC) Stage 3b chronic kidney disease (HCC) DEXA AXIAL SKELETON BONE DENSITY 1 OR MORE SITES 02/29/2020 9:31 AM CDT from Last 3 Months or Most Recently Relevant to Health Maintenance Results * POCT glucose (11/14/2024 9:05 AM CDT) [facility] Glucose, POC 152 70 - 199 mg/dL Comment:Testing performed by : [facility], [address] [place] [address], [place]., [address] Glucose comment 1 Use This Result MARCELINO HAYWOOD Comment:Testing performed by : [address] [id number] Glucose comment 2 RN/MD Notified MARCELINO Comment:Testing performed by : [address] [id number] Blood 11/14/2024 9:05 AM CDT 11/14/2024 9:05 AM CDT us Nahid Kim MD LAB POCT ORDERABLES - DEV ICE Final Result Performing Organization Address [facility] Co de Phone Number [address] [address] * POCT glucose (11/13/2024 8:13 PM CDT) Glucose, POC 184 70 - 199 mg/dL Comment:Testing performed by : [address] [id number] Blood 11/13/2024 8:13 PM CDT 11/13/2024 8:13 PM CDT us Conor Ventura MD LAB POCT ORDERABLE S - DEVICE Final Result Performing Organization Address [facility] de Phone Number [address] [address] * POCT glucose (11/13/2024 7:49 AM CDT) Glucose, POC 139 70 - 199 mg/dL Comment:Testing performed by : [address] [address] Glucose comment 1 Use This Result MARCELINO HAYWOOD Comment:Testing performed by : [address] [id number] Glucose comment 2 RN/MD Notified MARCELINO Comment:Testing performed by : [address] [id number] Blood 11/13/2024 7:49 AM CDT 11/13/2024 7:49 AM CDT Conor Ventura MD LAB POCT ORDERABLE S - DEVICE Final Result Performing Organization Address City/[facility] Co de Phone Number MARCELINO [address] [address] * POCT glucose (11/13/2024 4:21 AM CDT) Glucose, POC 131 70 - 199 mg/dL Comment:Testing performed by : [address] [address] Glucose comment 1 Use This Result MARCELINO Comment:Testing performed by : [address] [id number] Blood 11/13/2024 4:21 AM CDT 11/13/2024 4:21 AM CDT Conor Ventura MD LAB POCT ORDERABLE S - DEVICE Final Result Performing Organization Address [facility] de Phone Number [address] [address] * POCT glucose (11/13/2024 12:22 AM CDT) Glucose, POC 174 70 - 199 mg/dL Comment:Testing performed by : [address] [address] Glucose comment 1 Use This Result MARCELINO Comment:Testing performed by : [address] [id number] Blood 11/13/2024 12:2 2 AM CDT 11/13/2024 12:22 AM CDT Conor Ventura MD LAB POCT ORDERABLE S - DEVICE Final Result Performing Organization Address City/[facility]/ZIP Co de Phone Number [address] [address] * POCT glucose (11/12/2024 8:50 PM CDT) Glucose, POC 167 70 - 199 mg/dL Comment:Testing performed by : [address] [address] Blood 11/12/2024 8:50 PM CDT 11/12/2024 8:50 PM CDT Conor Ventura MD LAB POCT ORDERABLE S - DEVICE Final Result Performing Organization Address [facility] Co de Phone Number [address] [place] [address] * POCT glucose (11/12/2024 5:43 PM CDT) Glucose, POC 157 70 - 199 mg/dL Comment:Testing performed by : [address] [address] Glucose comment 1 Use This Result MARCELINO Comment:Testing performed by : [address] [address] Glucose comment 2 RN/MD Notified MARCELINO Comment:Testing performed by : [address] [address] Blood 11/12/2024 5:43 PM CDT 11/12/2024 5:43 PM CDT Conor Ventura MD LAB POCT ORDERABLE S - DEVICE Final Result Performing Organization Address [facility] Co de Phone Number [address] [place] [address] * POCT glucose (11/12/2024 11:50 AM CDT) Glucose, POC 175 70 - 199 mg/dL Comment:Testing performed by : [address] [address] Glucose comment 1 Use This Result [facility] Comment:Testing performed by : [address] [address] Glucose comment 2 RN/MD Notified MARCELINO Comment:Testing performed by : [address] [id number] Blood 11/12/2024 11:5 0 AM CDT 11/12/2024 11:50 AM CDT Conor Ventura MD LAB POCT ORDERABLE S - DEVICE Final Result Performing Organization Address [facility] Co de Phone Number [facility] [address] [facility] [place] [address] * POCT glucose (11/12/2024 8:11 AM CDT) Glucose, POC 120 70 - 199 mg/dL Comment:Testing performed by : [address] [address] Glucose comment 1 Use This Result MARCELINO Comment:Testing performed by : [address] [address] Glucose comment 2 RN/MD Notified [facility] Comment:Testing performed by : [address] [address] Blood 11/12/2024 8:11 AM CDT 11/12/2024 8:11 AM CDT Conor Ventura MD LAB POCT ORDERABLE S - DEVICE Final Result Performing Organization Address [facility] Co de Phone Number MARCELINO [address] [facility] [place] [address] * POCT glucose (11/12/2024 4:20 AM CDT) Glucose, POC 147 70 - 199 mg/dL Comment:Testing performed by : [address] [address] Glucose comment 1 Use This Result [facility] Comment:Testing performed by : [address] [address] Blood 11/12/2024 4:20 AM CDT 11/12/2024 4:20 AM CDT Conor Ventura MD LAB POCT ORDERABLE S - DEVICE Final Result MARCELINO [address] [address] * POCT glucose (11/11/2024 11:52 PM CDT) Glucose, POC 153 70 - 199 mg/dL Comment:Testing performed by : [address] [address] Glucose comment 1 Use This Result MARCELINO Comment:Testing performed by : [address] [address] Blood 11/11/2024 11:5 2 PM CDT 11/11/2024 11:52 PM CDT Conor Ventura MD LAB POCT ORDERABLE S - DEVICE Final Result Performing Organization Address [facility] de Phone Number [address] [address] * POCT glucose (11/11/2024 8:09 PM CDT) Glucose, POC 184 70 - 199 mg/dL Comment:Testing performed by : [address] [address] Glucose comment 1 Use This Result MARCELINO Comment:Testing performed by : [address] [address] Blood 11/11/2024 8:09 PM CDT 11/11/2024 8:09 PM CDT Conor Ventura MD LAB POCT ORDERABLE S - DEVICE Final Result Performing Organization Address City/[facility]/ZIP Co de Phone Number [address] [address] * POCT glucose (11/11/2024 5:40 PM CDT) [facility] Glucose, POC 132 70 - 199 mg/dL Comment:Testing performed by : [address] [address] Glucose comment 1 Use This Result MARCELINO Comment:Testing performed by : [address] [address] Blood 11/11/2024 5:40 PM CDT 11/11/2024 5:40 PM CDT Conor Ventura MD LAB POCT ORDERABLE S - DEVICE Final Result Performing Organization Address [facility] Co de Phone Number ORLIN[address] [place] [address] * POCT glucose (11/11/2024 12:01 PM CDT) [facility] Glucose, POC 177 70 - 199 mg/dL Comment:Testing performed by : [address] [address] Glucose comment 1 Use This Result MARCELINO Comment:Testing performed by : [address] [address] Glucose comment 2 RN/MD Notified MARCELINO Comment:Testing performed by : [address] [address] Blood 11/11/2024 12:0 1 PM CDT 11/11/2024 12:01 PM CDT Conor Ventura MD LAB POCT ORDERABLE S - DEVICE Final Result Performing Organization Address [facility] Co de Phone Number [address] [place] [address] * eGFR (11/10/2024 4:20 AM CDT) [facility] eGFR 84 >=60 mL/min/1. 73 m2 Comment: [...] was last reviewed 2021. Testing performed by: [address] [address] Blood 11/10/2024 4:20 AM CDT 11/10/2024 4:39 AM CDT us Conor Ventura MD LAB BLOOD ORDERABL ES Final Result [facility] [address] [facility] Department [place] [address] * Differential, auto (11/10/2024 4:20 AM CDT) Neutrophil abs 4.5 1.5 - 6.5 K/cumm Comment:Testing performed by : [address] [address] Imm gran abs 0.0 0.0 - 0.1 K/cumm MARCELINO Comment:Testing performed by : [address] [address] Lymphocyte abs 1.1 0.8 - 3.3 K/cumm MARCELINO Comment:Testing performed by : [address] [address] Monocyte abs 0.5 0.2 - 0.8 K/cumm MARCELINO Comment:Testing performed by : [address] [address] Eosinophil abs 0.2 0.0 - 0.5 K/cumm [facility] Comment:Testing performed by : [address] [address] Basophil abs 0.0 0.0 - 0.1 K/cumm [place] Comment:Testing performed by : [address] [address] Neutrophil pct 70.4 % [facility] Comment: Interpretive Data Percent cell count reference ranges are not reported, since discordance with absolute values may lead to misinterpretation of CBC data. Current Interpretive Data was last revised on 2017. Testing performed by: [address] [address] Imm gran pct 0.3 % [facility] Comment: Interpretive Data Percent cell count reference ranges are not reported, since discordance with absolute values may lead to misinterpretation of CBC data. Current Interpretive Data was last revised on 2017. Testing performed by: [address] [address] Lymphocyte pct 16.9 % [facility] Comment: Interpretive Data Percent cell count reference ranges are not reported, since discordance with absolute values may lead to misinterpretation of CBC data. Current Interpretive Data was last revised on 2017. Testing performed by: [address] [address] Monocyte pct 8.4 % [facility] Comment: Interpretive Data Percent cell count reference ranges are not reported, since discordance with absolute values may lead to misinterpretation of CBC data. Current Interpretive Data was last revised on 2017. Testing performed by: [address] [address] Eosinophil pct 3.5 % [facility] Comment: Interpretive Data Percent cell count reference ranges are not reported, since discordance with absolute values may lead to misinterpretation of CBC data. Current Interpretive Data was last revised on 2017. Testing performed by: [address] [address] Basophil pct 0.5 % [facility] Comment: Interpretive Data Percent cell count reference ranges are not reported, since discordance with absolute values may lead to misinterpretation of CBC data. Current Interpretive Data was last revised on 2017. Testing performed by: [address] [address] Blood 11/10/2024 4:20 AM CDT 11/10/2024 4:39 AM CDT us Ananya MEANS LAB BLOOD ORDERABLES Final Re sult MARCELINO [address] [facility] Department [place] [address] * (ABNORMAL) CBC with auto differential (11/10/2024 4:20 AM CDT) WBC 6.3 3.8 - 9.9 K/cumm Comment:Testing performed by : [address] [address] Hgb 12.3 11.9 - 15.5 g/dL MARCELINO HAYWOOD Comment:Testing performed by : [address] [address] Hct 39.0 35.6 - 45.5 % MARCELINO Comment:Testing performed by : [address] [address] Plt 326 150 - 400 K/cumm MARCELINO Comment:Testing performed by : [address] [address] MPV 10.3 9.1 - 12.3 fL MARCELINO HAYWOOD Comment:Testing performed by : [address] [address] RBC 4.63 3.90 - 5.20 M/cumm MARCELINO HAYWOOD Comment:Testing performed by : [address] [address] MCV 84.2 81.3 - 96.4 fL MARCELINO HAYWOOD Comment:Testing performed by : [address] [address] MCH 26.6(L) 27.1 - 33.3 pg MARCELINO HAYWOOD Comment:Testing performed by : [address] [address] MCHC 31.5(L) 32.3 - 35.7 g/dL MARCELINO Comment:Testing performed by : [address] [address] RDW CV 17.0(H) 11.1 - 14.9 % MARCELINO Comment:Testing performed by : [address], [address] RDW SD 52.2(H) 35.7 - 48.1 fL MARCELINO Comment:Testing performed by : [address] [address] NRBC abs 0.00 0.00 - 0.01 K/cumm MARCELINO Comment:Testing performed by : [address], [address] Blood 11/10/2024 4:20 AM CDT 11/10/2024 4:39 AM CDT us Ananya MEASN LAB BLOOD ORDERABLES Final Re sult Performing Organization Address City/[facility]/ZIP Co de Phone Number [address] [place] [address] * (ABNORMAL) CRP (acute phase) (11/10/2024 4:20 AM CDT) [facility] CRP 45.2(H) <=10.0 mg/L Comment:Testing performed by : [address] [address] Blood 11/10/2024 4:20 AM CDT 11/10/2024 4:39 AM CDT Conor Ventura MD LAB BLOOD ORDERABL ES Final Result [address] [place] [address] * Phosphorus (11/10/2024 4:20 AM CDT) [facility] Phosphorus, pl 3.4 2.3 - 4.5 mg/dL Comment:Testing performed by : [address] [address] Blood 11/10/2024 4:20 AM CDT 11/10/2024 4:39 AM CDT Conor Ventura MD LAB BLOOD ORDERABL ES Final Result Performing Organization Address [facility] de Phone Number [address] [place] [address] * Magnesium (11/10/2024 4:20 AM CDT) [facility] Magnesium 2.2 1.4 - 2.5 mg/dL Comment:Testing performed by : [address] [address] Blood 11/10/2024 4:20 AM CDT 11/10/2024 4:39 AM CDT Conor Ventura MD LAB BLOOD ORDERABL ES Final Result Performing Organization Address [facility] de Phone Number [address] [address] * (ABNORMAL) Comprehensive metabolic panel (11/10/2024 4:20 AM CDT) [facility] Sodium 141 135 - 145 mmol/L Comment:Testing performed by : [address] [address] Potassium, pl 3.2(L) 3.3 - 4.9 mmol/L MARCELINO Comment: Hemolyzed; Potassium value may be falsely elevated by as much as 1.0 mmol/L. Suggest redraw and reanalysis. Testing performed by: [address] [address] Chloride 105 97 - 110 mmol/L MARCELINO HAYWOOD Comment:Testing performed by : [address] [address] CO2 25 22 - 32 mmol/L MARCELINO Comment:Testing performed by : [address] [address] Anion gap 11 2 - 15 mmol/L MARCELINO Comment:Testing performed by : [address] [address] BUN 8 6 - 25 mg/dL MARCELINO Comment:Testing performed by : [address] [address] Creatinine 0.71 0.60 - 1.10 mg/dL MARCELINO Comment:Testing performed by : [address] [address] Glucose 143 70 - 199 mg/dL [facility] Comment: Interpretive Data Fasting glucose >/= 126 [...] was last revised 2022. Testing performed by: [address] [address] Calcium 9.7 8.5 - 10.3 mg/dL MARCELINO Comment:Testing performed by : [address] [address] Bilirubin, total 0.2 0.1 - 1.2 mg/dL MARCELINO Comment:Testing performed by : [address] [address] Protein, pl 6.3(L) 6.5 - 8.5 g/dL MARCELINO Comment:Testing performed by : [address] [address] Albumin 2.9(L) 3.5 - 5.0 g/dL MARCELINO Comment:Testing performed by : [address] [address] Alk phos 97 40 - 130 Units/L MARCELINO Comment:Testing performed by : [address] [address] ALT 10 7 - 45 Units/L MARCELINO Comment:Testing performed by : [address] [address] AST 23 10 - 45 Units/L MARCELINO Comment: Hemolyzed; result may be falsely elevated Testing performed by: [address] [address] Blood 11/10/2024 4:20 AM CDT 11/10/2024 4:39 AM CDT Conor Ventura MD LAB BLOOD ORDERABL ES Final Result Performing Organization Address [facility] Co de Phone Number [address] [place] [address] * POCT glucose (11/10/2024 4:00 AM CDT) Glucose, POC 140 70 - 199 mg/dL Comment:Testing performed by : [address] [address] Glucose comment 1 Use This Result MARCELINO Comment:Testing performed by : [address] [address] Blood 11/10/2024 4:00 AM CDT 11/10/2024 4:00 AM CDT Conor Ventura MD LAB POCT ORDERABLE S - DEVICE Final Result Performing Organization Address City/[facility]/ZIP Co de Phone Number [address] [place] [address] * (ABNORMAL) POCT glucose (11/09/2024 11:57 PM CDT) Glucose, POC 228(H) 70 - 199 mg/dL Comment:Testing performed by : [address] [address] Glucose comment 1 Use This Result MARCELINO Comment:Testing performed by : [facility], [address] [place] [address]., [address] Blood 11/09/2024 11:5 7 PM CDT 11/09/2024 11:57 PM CDT Conor Ventura MD LAB POCT ORDERABLE S - DEVICE Final Result Performing Organization Address [facility] Co de Phone Number [address] [place] [address] * POCT glucose (11/09/2024 8:40 PM CDT) Glucose, POC 146 70 - 199 mg/dL Comment:Testing performed by : [address] [address] Glucose comment 1 Use This Result MARCELINO Comment:Testing performed by : [address] [address] Blood 11/09/2024 8:40 PM CDT 11/09/2024 8:40 PM CDT Result [facility] Conor Ventura MD LAB POCT ORDERABLE S - DEVICE Final Result Performing Organization Address [facility] de Phone Number [address] [place] [address] * POCT glucose (11/09/2024 4:53 PM CDT) Glucose, POC 133 70 - 199 mg/dL Comment:Testing performed by : [address] [address] Blood 11/09/2024 4:53 PM CDT 11/09/2024 4:53 PM CDT Conor Ventura MD LAB POCT ORDERABLE S - DEVICE Final Result Performing Organization Address City/[facility]/ZIP Co de Phone Number [address] [place] [address] * POCT glucose (11/09/2024 12:08 PM CDT) Glucose, POC 187 70 - 199 mg/dL Comment:Testing performed by : [address] [address] Blood 11/09/2024 12:0 8 PM CDT 11/09/2024 12:08 PM CDT Conor Ventura MD LAB POCT ORDERABLE S - DEVICE Final Result Performing Organization Address City/[facility]/ZIP Co de Phone Number [address] [address] * POCT glucose (11/09/2024 8:52 AM CDT) [facility] Signature Glucose, POC 152 70 - 199 mg/dL Comment:Testing performed by : [address] [address] Blood 11/09/2024 8:52 AM CDT 11/09/2024 8:52 AM CDT Conor Ventura MD LAB POCT ORDERABLE S - DEVICE Final Result [address] [address] * eGFR (11/09/2024 5:08 AM CDT) eGFR 89 >=60 mL/min/1. 73 m2 [...] was last reviewed 2021. Testing performed by: [address] [address] Blood 11/09/2024 5:08 AM CDT 11/09/2024 5:33 AM CDT Conor Ventura MD LAB BLOOD ORDERABL ES Final Result MARCELINO [facility] Department [place] [address] * Differential, auto (11/09/2024 5:08 AM CDT) Neutrophil abs 4.5 1.5 - 6.5 K/cumm Comment:Testing performed by : [address] [address] Imm gran abs 0.0 0.0 - 0.1 K/cumm MARCELINO Comment:Testing performed by : [address] [address] Lymphocyte abs 1.1 0.8 - 3.3 K/cumm MARCELINO Comment:Testing performed by : [address] [address] Monocyte abs 0.5 0.2 - 0.8 K/cumm MARCELINO Comment:Testing performed by : [address] [address] Eosinophil abs 0.2 0.0 - 0.5 K/cumm MARCELINO Comment:Testing performed by : [address] [address] Basophil abs 0.0 0.0 - 0.1 K/cumm MARCELINO Comment:Testing performed by : [address] [address] Neutrophil pct 71.4 % CERNER Comment: Interpretive Data Percent cell count reference ranges are not reported, since discordance with absolute values may lead to misinterpretation of CBC data. Current Interpretive Data was last revised on 2017. Testing performed by: [address] [address] Imm gran pct 0.6 % [facility] Comment: Interpretive Data Percent cell count reference ranges are not reported, since discordance with absolute values may lead to misinterpretation of CBC data. Current Interpretive Data was last revised on 2017. Testing performed by: [address] [address] Lymphocyte pct 16.5 % [facility] Comment: Interpretive Data Percent cell count reference ranges are not reported, since discordance with absolute values may lead to misinterpretation of CBC data. Current Interpretive Data was last revised on 2017. Testing performed by: [address] [address] Monocyte pct 8.5 % [facility] Comment: Interpretive Data Percent cell count reference ranges are not reported, since discordance with absolute values may lead to misinterpretation of CBC data. Current Interpretive Data was last revised on 2017. Testing performed by: [address] [address] Eosinophil pct 2.7 % CERNER Comment: Interpretive Data Percent cell count reference ranges are not reported, since discordance with absolute values may lead to misinterpretation of CBC data. Current Interpretive Data was last revised on 2017. Testing performed by: [address] [address] Basophil pct 0.3 % CERNER Comment: Interpretive Data Percent cell count reference ranges are not reported, since discordance with absolute values may lead to misinterpretation of CBC data. Current Interpretive Data was last revised on 2017. Testing performed by: [address] [address] Blood 11/09/2024 5:08 AM CDT 11/09/2024 5:33 AM CDT us Ananya MEANS LAB BLOOD ORDERABLES Final Re sult [facility] [address] [facility] Department of Laboratories [place], [place] [id number] * (ABNORMAL) CBC with auto differential (11/09/2024 5:08 AM CDT) WBC 6.4 3.8 - 9.9 K/cumm Comment:Testing performed by : [address] [address] Hgb 11.9 11.9 - 15.5 g/dL MARCELINO Comment:Testing performed by : [address], [address] Hct 38.4 35.6 - 45.5 % MARCELINO Comment:Testing performed by : [address] [address] Plt 342 150 - 400 K/cumm MARCELINO Comment:Testing performed by : [address] [address] MPV 10.5 9.1 - 12.3 fL MARCELINO Comment:Testing performed by : [address] [address] RBC 4.52 3.90 - 5.20 M/cumm MARCELINO Comment:Testing performed by : [address] [address] MCV 85.0 81.3 - 96.4 fL MARCELINO Comment:Testing performed by : [address] [address] MCH 26.3(L) 27.1 - 33.3 pg MARCELINO Comment:Testing performed by : [address] [address] MCHC 31.0(L) 32.3 - 35.7 g/dL MARCELINO Comment:Testing performed by : [address] [address] RDW CV 17.1(H) 11.1 - 14.9 % MARCELINO Comment:Testing performed by : [address] [place] [address] RDW SD 53.1(H) 35.7 - 48.1 fL MARCELINO HAYWOOD Comment:Testing performed by : [address] [address] NRBC abs 0.00 0.00 - 0.01 K/cumm MARCELINO HAYWOOD Comment:Testing performed by : [address] [address] Blood 11/09/2024 5:08 AM CDT 11/09/2024 5:33 AM CDT us Ananya MEANS LAB BLOOD ORDERABLES Final Re sult Performing Organization Address City/[facility]/ZIP Co de Phone Number [address] [place] [address] * (ABNORMAL) CRP (acute phase) (11/09/2024 5:08 AM CDT) CRP 102.6(H) <=10.0 mg/L Comment:Testing performed by : [address], [address] Blood 11/09/2024 5:08 AM CDT 11/09/2024 5:33 AM CDT us Conor Ventura MD LAB BLOOD ORDERABL ES Final Result Performing Organization Address City/[facility]/ZIP Co de Phone Number [address] [place] [address] * (ABNORMAL) Phosphorus (11/09/2024 5:08 AM CDT) Phosphorus, pl 2.1(L) 2.3 - 4.5 mg/dL Comment:Testing performed by : [address] [address] Blood 11/09/2024 5:08 AM CDT 11/09/2024 5:33 AM CDT Conor Ventura MD LAB BLOOD ORDERABL ES Final Result Performing Organization Address [facility] Co de Phone Number [address] [place] [address] * (ABNORMAL) Magnesium (11/09/2024 5:08 AM CDT) Magnesium 1.2(L) 1.4 - 2.5 mg/dL Comment:Testing performed by : [address] [address] Blood 11/09/2024 5:08 AM CDT 11/09/2024 5:33 AM CDT Conor Ventura MD LAB BLOOD ORDERABL ES Final Result Performing Organization Address [facility] de Phone Number [address] [address] * (ABNORMAL) Comprehensive metabolic panel (11/09/2024 5:08 AM CDT) Sodium 140 135 - 145 mmol/L Comment:Testing performed by : [address] [address] Potassium, pl 3.0(L) 3.3 - 4.9 mmol/L MARCELINO Comment:Testing performed by : [address] [address] Chloride 103 97 - 110 mmol/L MARCELINO Comment:Testing performed by : [address] [address] CO2 27 22 - 32 mmol/L MARCELINO Comment:Testing performed by : [address] [address] Anion gap 10 2 - 15 mmol/L MARCELINO Comment:Testing performed by : [address] [address] BUN 7 6 - 25 mg/dL MARCELINO Comment:Testing performed by : [address] [address] Creatinine 0.60 0.60 - 1.10 mg/dL MARCELINO Comment:Testing performed by : [address] [address] Glucose 197 70 - 199 mg/dL MARCELINO [...] was last revised 2022. Testing performed by: [address] [address] Calcium 9.9 8.5 - 10.3 mg/dL MARCELINO Comment:Testing performed by : [address] [address] Bilirubin, total 0.2 0.1 - 1.2 mg/dL MARCELINO Comment:Testing performed by : [address] [address] Protein, pl 6.0(L) 6.5 - 8.5 g/dL MARCELINO Comment:Testing performed by : [address] [address] Albumin 2.7(L) 3.5 - 5.0 g/dL MARCELINO Comment:Testing performed by : [address] [address] Alk phos 91 40 - 130 Units/L MARCELINO Comment:Testing performed by : [address] [address] ALT 7 7 - 45 Units/L MARCELINO Comment:Testing performed by : [address] [address] AST 14 10 - 45 Units/L MARCELINO Comment:Testing performed by : [address] [address] Blood 11/09/2024 5:08 AM CDT 11/09/2024 5:33 AM CDT Conor Ventura MD LAB BLOOD ORDERABL ES Final Result MARCELINO [address] [address] * POCT glucose (11/09/2024 5:01 AM CDT) Glucose, POC 191 70 - 199 mg/dL Comment:Testing performed by : [address] [address] Glucose comment 1 Use This Result MARCELINO Comment:Testing performed by : [address] [address] Blood 11/09/2024 5:01 AM CDT 11/09/2024 5:01 AM CDT Conor Ventura MD LAB POCT ORDERABLE S - DEVICE Final Result Performing Organization Address [facility] Co de Phone Number [address] [address] * POCT glucose (11/09/2024 12:07 AM CDT) Glucose, POC 197 70 - 199 mg/dL Comment:Testing performed by : [address] [address] Glucose comment 1 Use This Result MARCELINO Comment:Testing performed by : [address] [address] Blood 11/09/2024 12:0 7 AM CDT 11/09/2024 12:07 AM CDT Conor Ventura MD LAB POCT ORDERABLE S - DEVICE Final Result Performing Organization Address City/[facility]/ZIP Co de Phone Number [address] [address] * POCT glucose (11/08/2024 8:15 PM CDT) Glucose, POC 181 70 - 199 mg/dL Comment:Testing performed by : [address] [address] Glucose comment 1 Use This Result MARCELINO Comment:Testing performed by : [address] [address] Blood 11/08/2024 8:15 PM CDT 11/08/2024 8:15 PM CDT Conor Ventura MD LAB POCT ORDERABLE S - DEVICE Final Result Performing Organization Address City/[facility]/ZIP Co de Phone Number [place] [phone] [facility] [place] [address] * POCT glucose (11/08/2024 3:43 PM CDT) Glucose, POC 157 70 - 199 mg/dL Comment:Testing performed by : [address] [address] Blood 11/08/2024 3:43 PM CDT 11/08/2024 3:43 PM CDT us Conor Ventura MD LAB POCT ORDERABLE S - DEVICE Final Result Performing Organization Address City/[facility]/ZIP Co de Phone Number [place] [phone] [facility] [place] [address] * POCT glucose (11/08/2024 11:42 AM CDT) Glucose, POC 167 70 - 199 mg/dL Comment:Testing performed by : [address] [address] Blood 11/08/2024 11:4 2 AM CDT 11/08/2024 11:42 AM CDT Conor Ventura MD LAB POCT ORDERABLE S - DEVICE Final Result Performing Organization Address City/[facility]/ZIP Co de Phone Number MARCELINO [address] [address] * POCT glucose (11/08/2024 7:59 AM CDT) Glucose, POC 173 70 - 199 mg/dL Comment:Testing performed by : [address] [address] Glucose comment 1 Use This Result [facility] Comment:Testing performed by : [address] [address] Blood 11/08/2024 7:59 AM CDT 11/08/2024 7:59 AM CDT Conor Ventura MD LAB POCT ORDERABLE S - DEVICE Final Result Performing Organization Address [facility] Co de Phone Number MARCELINO [address] [address] * (ABNORMAL) POCT glucose (11/08/2024 7:58 AM CDT) [facility] Glucose, POC 204(H) 70 - 199 mg/dL Comment:Testing performed by : [address] [address] Glucose comment 1 Use This Result MARCELINO Comment:Testing performed by : [address] [address] Blood 11/08/2024 7:58 AM CDT 11/08/2024 7:58 AM CDT Conor Ventura MD LAB POCT ORDERABLE S - DEVICE Final Result Performing Organization Address City/[facility]/ZIP Co de Phone Number MARCELINO [address] [address] * (ABNORMAL) POCT glucose (11/08/2024 5:46 AM CDT) [facility] Glucose, POC 210(H) 70 - 199 mg/dL Comment:Testing performed by : [facility], [address] [place] [address]., [address] Glucose comment 1 Use This Result MARCELINO HAYWOOD Comment:Testing performed by : [facility], [address] [place] [address]., [address] Blood 11/08/2024 5:46 AM CDT 11/08/2024 5:46 AM CDT Conor Ventura MD LAB POCT ORDERABLE S - DEVICE Final Result MARCELINO HAYWOOD [address] [facility] Department [place] [address] * eGFR (11/08/2024 1:05 AM CDT) [facility] eGFR 90 >=60 mL/min/1. 73 m2 Comment: [...] was last reviewed 2021. Testing performed by: [facility], [address] [place] [address]., [address] Blood 11/08/2024 1:05 AM CDT 11/08/2024 1:24 AM CDT Conor Ventura MD LAB BLOOD ORDERABL ES Final Result Performing Organization Address [facility] Co de Phone Number MARCELINO HAYWOOD [address] [facility] [place] [address] * Blood culture Blood (11/08/2024 1:05 AM CDT) Report Final Report: No growth Comment:Testing performed by : [facility], [address] [place]., [address] Blood 11/08/2024 1:05 AM CDT 11/08/2024 3:32 AM CDT [facility] MARCELINO - 11/12/2024 7:00 AM CDT From [...] performance characteristics have been verified by the [facility] Microbiology Laboratory. For questions about this culture, contact the Microbiology Laboratory at [phone]. Interpretive data was last revised on 24. Conor Ventura MD LAB MICROBIOLOGY - GENERAL ORDERABLES Final Result Performing Organization Address City/[facility]/ZIP Co de Phone Number MARCELINO HAYWOOD [address] [facility] [place] [address] * (ABNORMAL) CRP (acute phase) (11/08/2024 1:05 AM CDT) CRP 101.0(H) <=10.0 mg/L Comment:Testing performed by : [address] [address] Blood 11/08/2024 1:05 AM CDT 11/08/2024 1:24 AM CDT Conor Ventura MD LAB BLOOD ORDERABL ES Final Result Performing Organization Address City/[facility]/ZIP Co de Phone Number [address] [place] [address] * Phosphorus (11/08/2024 1:05 AM CDT) Pathologist [facility] Phosphorus, pl 3.5 2.3 - 4.5 mg/dL Comment:Testing performed by : [address] [address] Blood 11/08/2024 1:05 AM CDT 11/08/2024 1:24 AM CDT Conor Ventura MD LAB BLOOD ORDERABL ES Final Result Performing Organization Address City/[facility] Co de Phone Number [address] [place] [address] * Magnesium (11/08/2024 1:05 AM CDT) Pathologist [facility] Magnesium 1.4 1.4 - 2.5 mg/dL Comment:Testing performed by : [address] [address] Blood 11/08/2024 1:05 AM CDT 11/08/2024 1:24 AM CDT us Conor Ventura MD LAB BLOOD ORDERABL ES Final Result Performing Organization Address City/[facility]/ZIP Co de Phone Number [address] [place] [address] * (ABNORMAL) Comprehensive metabolic panel (11/08/2024 1:05 AM CDT) Sodium 143 135 - 145 mmol/L Comment:Testing performed by : [address] [address] Potassium, pl 3.1(L) 3.3 - 4.9 mmol/L MARCELINO Comment:Testing performed by : [address] [address] Chloride 107 97 - 110 mmol/L MARCELINO Comment:Testing performed by : [address] [address] CO2 26 22 - 32 mmol/L MARCELINO Comment:Testing performed by : [address] [address] Anion gap 10 2 - 15 mmol/L MARCELINO Comment:Testing performed by : [address] [address] BUN 8 6 - 25 mg/dL MARCELINO Comment:Testing performed by : [address] [address] Creatinine 0.56(L) 0.60 - 1.10 mg/dL MARCELINO Comment:Testing performed by : [address] [address] Glucose 209(H) 70 - 199 mg/dL [facility] Comment: Interpretive Data Fasting glucose >/= 126 [...] was last revised 2022. Testing performed by: [address] [address] Calcium 9.5 8.5 - 10.3 mg/dL MARCELINO Comment:Testing performed by : [address] [address] Bilirubin, total 0.2 0.1 - 1.2 mg/dL MARCELINO Comment:Testing performed by : [address] [address] Protein, pl 6.0(L) 6.5 - 8.5 g/dL MARCELINO Comment:Testing performed by : [address], [place]., [address] Albumin 2.9(L) 3.5 - 5.0 g/dL MARCELINO Comment:Testing performed by : [address], [place]., [address] Alk phos 90 40 - 130 Units/L MARCELINO Comment:Testing performed by : [address] [address] ALT 11 7 - 45 Units/L MARCELINO Comment:Testing performed by : [address] [address] AST 13 10 - 45 Units/L MARCELINO Comment:Testing performed by : [address] [address] Blood 11/08/2024 1:05 AM CDT 11/08/2024 1:24 AM CDT Conor Ventura MD LAB BLOOD ORDERABL ES Final Result MARCELINO [address] [facility] Department of Laboratories [place], [place] [id number] * POCT glucose (11/08/2024 12:31 AM CDT) Glucose, POC 195 70 - 199 mg/dL Comment:Testing performed by : [address] [address] Glucose comment 1 Use This Result MARCELINO Comment:Testing performed by : [address] [address] Blood 11/08/2024 12:3 1 AM CDT 11/08/2024 12:31 AM CDT Conor Ventura MD LAB POCT ORDERABLE S - DEVICE Final Result Performing Organization Address City/[facility] Co de Phone Number MARCELINO [address] [place] [address] * POCT glucose (11/07/2024 9:10 PM CDT) Glucose, POC 140 70 - 199 mg/dL Comment:Testing performed by : [facility], [address] [place] [address]., [address] Glucose comment 1 Use This Result MARCELINO Comment:Testing performed by : [address] [address] Blood 11/07/2024 9:10 PM CDT 11/07/2024 9:10 PM CDT Conor Ventura MD LAB POCT ORDERABLE S - DEVICE Final Result Performing Organization Address [facility] Co de Phone Number [address] [address] * POCT glucose (11/07/2024 4:39 PM CDT) Glucose, POC 183 70 - 199 mg/dL Comment:Testing performed by : [address] [address] Blood 11/07/2024 4:39 PM CDT 11/07/2024 4:39 PM CDT Conor Ventura MD LAB POCT ORDERABLE S - DEVICE Final Result Performing Organization Address City/[facility] Co de Phone Number ORLIN[address] [place] [address] * eGFR (11/07/2024 1:49 PM CDT) eGFR [...] was last reviewed 2021. Testing performed by: [address] [address] Blood 11/07/2024 1:49 PM CDT 11/07/2024 2:07 PM CDT us Satinder Dougherty MD LAB BLOOD ORDERABLES Fi nal Result MARCELINO [address] [facility] Department [place] [address] * (ABNORMAL) Differential, auto (11/07/2024 1:49 PM CDT) Neutrophil abs 9.8(H) 1.5 - 6.5 K/cumm Comment:Testing performed by : [address] [address] Imm gran abs 0.1 0.0 - 0.1 K/cumm MARCELINO HAYWOOD Comment:Testing performed by : [address] [address] Lymphocyte abs 0.8 0.8 - 3.3 K/cumm MARCELINO HAYWOOD Comment:Testing performed by : [address] [address] Monocyte abs 0.8 0.2 - 0.8 K/cumm MARCELINO HAYWOOD Comment:Testing performed by : [address] [address] Eosinophil abs 0.1 0.0 - 0.5 K/cumm MARCELINO Comment:Testing performed by : [address] [address] Basophil abs 0.1 0.0 - 0.1 K/cumm MARCELINO Comment:Testing performed by : [address] [address] Neutrophil pct 84.7 % [facility] Comment: Interpretive Data Percent cell count reference ranges are not reported, since discordance with absolute values may lead to misinterpretation of CBC data. Current Interpretive Data was last revised on 2017. Testing performed by: [address] [address] Imm gran pct 0.5 % [facility] Comment: Interpretive Data Percent cell count reference ranges are not reported, since discordance with absolute values may lead to misinterpretation of CBC data. Current Interpretive Data was last revised on 2017. Testing performed by: [address] [address] Lymphocyte pct 6.5 % [facility] Comment: Interpretive Data Percent cell count reference ranges are not reported, since discordance with absolute values may lead to misinterpretation of CBC data. Current Interpretive Data was last revised on 2017. Testing performed by: [address] [address] Monocyte pct 7.2 % [facility] Comment: Interpretive Data Percent cell count reference ranges are not reported, since discordance with absolute values may lead to misinterpretation of CBC data. Current Interpretive Data was last revised on 2017. Testing performed by: [address] [address] Eosinophil pct 0.7 % MARCELINO Comment: Interpretive Data Percent cell count reference ranges are not reported, since discordance with absolute values may lead to misinterpretation of CBC data. Current Interpretive Data was last revised on 2017. Testing performed by: [address] [address] Basophil pct 0.4 % MARCELINO HAYWOOD Comment: Interpretive Data Percent cell count reference ranges are not reported, since discordance with absolute values may lead to misinterpretation of CBC data. Current Interpretive Data was last revised on 2017. Testing performed by: [address] [address] Blood 11/07/2024 1:49 PM CDT 11/07/2024 2:07 PM CDT Ananya MEANS LAB BLOOD ORDERABLES Final Re sult Performing Organization Address [facility] Co de Phone Number [address] [place] [address] * Thyroid Function [place] (11/07/2024 1:49 PM CDT) Pathologist [facility] TSH 3.28 0.30 - 4.20 mcIUnit/mL Comment:Testing performed by : [address] [address] Blood 11/07/2024 1:49 PM CDT 11/07/2024 2:07 PM CDT Conor Ventura MD LAB BLOOD ORDERABL ES Final Result Performing Organization Address [facility] Co de Phone Number [address] [address] * (ABNORMAL) CBC with auto differential (11/07/2024 1:49 PM CDT) WBC 11.6(H) 3.8 - 9.9 K/cumm Comment:Testing performed by : [address] [address] Hgb 12.6 11.9 - 15.5 g/dL MARCELINO HAYWOOD Comment:Testing performed by : [address] [address] Hct 39.9 35.6 - 45.5 % MARCELINO HAYWOOD Comment:Testing performed by : [address] [address] Plt 407(H) 150 - 400 K/cumm MARCELINO Comment:Testing performed by : [address] [address] MPV 10.5 9.1 - 12.3 fL MARCELINO HAYWOOD Comment:Testing performed by : [address] [address] RBC 4.73 3.90 - 5.20 M/cumm MARCELINO HAYWOOD Comment:Testing performed by : [address] [address] MCV 84.4 81.3 - 96.4 fL MARCELINO Comment:Testing performed by : [address] [address] MCH 26.6(L) 27.1 - 33.3 pg MARCELINO Comment:Testing performed by : [address] [address] MCHC 31.6(L) 32.3 - 35.7 g/dL MARCELINO Comment:Testing performed by : [address] [address] RDW CV 17.2(H) 11.1 - 14.9 % MARCELINO Comment:Testing performed by : [address] [address] RDW SD 53.5(H) 35.7 - 48.1 fL MARCELINO Comment:Testing performed by : [address] [address] NRBC abs 0.00 0.00 - 0.01 K/cumm MARCELNIO Comment:Testing performed by : [address] [address] Blood 11/07/2024 1:49 PM CDT 11/07/2024 2:07 PM CDT us Ananya MEANS LAB BLOOD ORDERABLES Final Re sult [facility] [address] [facility] Department [place] [address] * (ABNORMAL) Erythrocyte sedimentation rate (11/07/2024 1:49 PM CDT) Erythrocyte sedimentation rate 85(H) 1 - 30 mm/hr Comment:Testing performed by : [address] [address] Blood 11/07/2024 1:49 PM CDT 11/07/2024 2:07 PM CDT Conor Ventura MD LAB BLOOD ORDERABL ES Final Result Performing Organization Address [facility] Co de Phone Number [address] [place] [address] * (ABNORMAL) CRP (acute phase) (11/07/2024 1:49 PM CDT) Pathologist [facility] CRP 108.0(H) <=10.0 mg/L Comment:Testing performed by : [address] [address] Blood 11/07/2024 1:49 PM CDT 11/07/2024 2:07 PM CDT Conor Ventura MD LAB BLOOD ORDERABL ES Final Result Performing Organization Address [facility] Co de Phone Number [address] [address] * Ammonia (11/07/2024 1:49 PM CDT) Pathologist [facility] Ammonia 13 <=50 mcmol/L Comment: Please note on 01/05/2024 the unit of measure changed from mcg/dL to mcmol/L. Current Interpretive Data was last revised on 2024 Testing performed by: [address] [address] Blood 11/07/2024 1:49 PM CDT 11/07/2024 2:05 PM CDT Conor Ventura MD LAB BLOOD ORDERABL ES Final Result MARCELINO [address] [facility] Department [place] [address] * (ABNORMAL) Basic metabolic panel (11/07/2024 1:49 PM CDT) Sodium 144 135 - 145 mmol/L Comment:Testing performed by : [address] [address] Potassium, pl 2.9(L) 3.3 - 4.9 mmol/L MARCELINO Comment:Testing performed by : [address] [address] Chloride 109 97 - 110 mmol/L MARCELINO Comment:Testing performed by : [address] [address] CO2 23 22 - 32 mmol/L MARCELINO Comment:Testing performed by : [address] [address] Anion gap 12 2 - 15 mmol/L MARCELINO Comment:Testing performed by : [address] [address] BUN 10 6 - 25 mg/dL MARCELINO Comment:Testing performed by : [address] [address] Creatinine 0.55(L) 0.60 - 1.10 mg/dL MARCELINO Comment:Testing performed by : [address] [address] Glucose 170 70 - 199 mg/dL MARCELINO [...] was last revised 2022. Testing performed by: [address] [address] Calcium 10.0 8.5 - 10.3 mg/dL [facility] Comment:Testing performed by : [facility], [address] [place] [address]., [address] Blood 11/07/2024 1:49 PM CDT 11/07/2024 2:07 PM CDT Satinder Dougherty MD LAB BLOOD ORDERABLES Fi nal Result Performing Organization Address [facility] Co de Phone Number [address] [address] * POCT glucose (11/07/2024 12:43 PM CDT) [facility] Signature Glucose, POC 170 70 - 199 mg/dL Comment:Testing performed by : [facility], [address] [place] [address]., [address] Blood 11/07/2024 12:4 3 PM CDT 11/07/2024 12:43 PM CDT Conor Ventura MD LAB POCT ORDERABLE S - DEVICE Final Result Performing Organization Address [facility] de Phone Number [address] [address] * CT Chest Abdomen Pelvis W Contrast [...] vessels without aneurysm. 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 AM: AM Report ID: [id number] Reading Location: [place] [address] Procedure Note Shahid Schaeffer MD - 11/07/2024 [...] vessels without aneurysm. 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 AM: AM Report ID: [id number] Reading Location: [place] [address] Conor Ventura MD IMG CT PROCEDURES Final Result * Lactate (11/07/2024 12:23 PM CDT) Lactate 1.1 0.7 - 2.0 mmol/L Comment:Testing performed by : [facility], [address] [place] [address], [place]., [address] Blood 11/07/2024 12:2 3 PM CDT 11/07/2024 12:28 PM CDT Conor Ventura MD LAB BLOOD ORDERABL ES Final Result Performing Organization Address [facility] de Phone [place] [phone] [facility] [employer] [address] * eGFR (11/07/2024 12:23 PM CDT) eGFR >90 >=60 mL/min/1. 73 [...] was last reviewed 2021. Testing performed by: [address] [address] Blood 11/07/2024 12:2 3 PM CDT 11/07/2024 12:28 PM CDT Conor Ventura MD LAB BLOOD ORDERABL ES Final Result Performing Organization Address [facility] Co de Phone Number [place] [phone] [facility] [place] [address] * (ABNORMAL) Differential, auto (11/07/2024 12:23 PM CDT) Neutrophil abs 10.0(H) 1.5 - 6.5 K/cumm Comment:Testing performed by : [address] [address] Imm gran abs 0.1 0.0 - 0.1 K/cumm MARCELINO HAYWOOD Comment:Testing performed by : [address], [place]., [address] Lymphocyte abs 0.9 0.8 - 3.3 K/cumm MARCELINO Comment:Testing performed by : [address], [place]., [address] Monocyte abs 0.9(H) 0.2 - 0.8 K/cumm MARCELINO Comment:Testing performed by : [address], [place]., [address] Eosinophil abs 0.1 0.0 - 0.5 K/cumm MARCELINO Comment:Testing performed by : [address], [place]., [address] Basophil abs 0.1 0.0 - 0.1 K/cumm MARCELINO Comment:Testing performed by : [address] [address] Neutrophil pct 82.9 % [facility] Comment: Interpretive Data Percent cell count reference ranges are not reported, since discordance with absolute values may lead to misinterpretation of CBC data. Current Interpretive Data was last revised on 2017. Testing performed by: [address] [address] Imm gran pct 0.6 % [facility] Comment: Interpretive Data Percent cell count reference ranges are not reported, since discordance with absolute values may lead to misinterpretation of CBC data. Current Interpretive Data was last revised on 2017. Testing performed by: [address] [address] Lymphocyte pct 7.6 % [facility] Comment: Interpretive Data Percent cell count reference ranges are not reported, since discordance with absolute values may lead to misinterpretation of CBC data. Current Interpretive Data was last revised on 2017. Testing performed by: [address] [address] Monocyte pct 7.8 % [facility] Comment: Interpretive Data Percent cell count reference ranges are not reported, since discordance with absolute values may lead to misinterpretation of CBC data. Current Interpretive Data was last revised on 2017. Testing performed by: [address] [address] Eosinophil pct 0.6 % MARCELINO HAYWOOD Comment: Interpretive Data Percent cell count reference ranges are not reported, since discordance with absolute values may lead to misinterpretation of CBC data. Current Interpretive Data was last revised on 2017. Testing performed by: [address] [address] Basophil pct 0.5 % MARCELINO HAYWOOD Comment: Interpretive Data Percent cell count reference ranges are not reported, since discordance with absolute values may lead to misinterpretation of CBC data. Current Interpretive Data was last revised on 2017. Testing performed by: [address] [address] Blood 11/07/2024 12:2 3 PM CDT 11/07/2024 12:28 PM CDT Conor Ventura MD LAB BLOOD ORDERABL ES Final Result MARCELINO [address] Department [place] [address] * (ABNORMAL) CBC with auto differential (11/07/2024 12:23 PM CDT) WBC 12.1(H) 3.8 - 9.9 K/cumm Comment:Testing performed by : [address] [address] Hgb 12.6 11.9 - 15.5 g/dL MARCELINO HAYWOOD Comment:Testing performed by : [address] [address] Hct 40.7 35.6 - 45.5 % MARCELINO HAYWOOD Comment:Testing performed by : [address] [address] Plt 395 150 - 400 K/cumm MARCELINO HAYWOOD Comment:Testing performed by : [address] [address] MPV 10.1 9.1 - 12.3 fL MARCELINO HAYWOOD Comment:Testing performed by : [address] [address] RBC 4.71 3.90 - 5.20 M/cumm MARCELINO Comment:Testing performed by : [address] [address] MCV 86.4 81.3 - 96.4 fL MARCELINO Comment:Testing performed by : [address] [address] MCH 26.8(L) 27.1 - 33.3 pg MARCELINO Comment:Testing performed by : [address] [address] MCHC 31.0(L) 32.3 - 35.7 g/dL MARCELINO Comment:Testing performed by : [address] [address] RDW CV 17.2(H) 11.1 - 14.9 % MARCELINO Comment:Testing performed by : [address] [address] RDW SD 54.4(H) 35.7 - 48.1 fL MARCELINO Comment:Testing performed by : [address] [address] NRBC abs 0.00 0.00 - 0.01 K/cumm MARCELINO Comment:Testing performed by : [address] [address] Blood 11/07/2024 12:2 3 PM CDT 11/07/2024 12:28 PM CDT Conor Ventura MD LAB BLOOD ORDERABL ES Final Result [facility] [address] [facility] Department [place] [address] * Blood culture Blood (11/07/2024 12:23 PM CDT) Report Final Report: No growth Comment:Testing performed by : [facility], [address] [facility] [place]., [address] Blood 11/07/2024 12:2 3 PM CDT 11/07/2024 [...] performance characteristics have been verified by the [facility] Microbiology Laboratory. For questions about this culture, contact the Microbiology Laboratory at [phone]. Interpretive data was last revised on 24. Conor Ventura MD LAB MICROBIOLOGY - GENERAL ORDERABLES Final Result MARCELINO [address] [facility] Department [place] [address] * (ABNORMAL) Phosphorus (11/07/2024 12:23 PM CDT) [facility] Phosphorus, pl 2.0(L) 2.3 - 4.5 mg/dL Comment:Testing performed by : [facility], [address] [place] [address]., [address] Blood 11/07/2024 12:2 3 PM CDT 11/07/2024 12:28 PM CDT Conor Ventura MD LAB BLOOD ORDERABL ES Final Result MARCELINO [address] [place] [address] * Magnesium (11/07/2024 12:23 PM CDT) [facility] Magnesium 1.4 1.4 - 2.5 mg/dL Comment:Testing performed by : [address] [address] Blood 11/07/2024 12:2 3 PM CDT 11/07/2024 12:28 PM CDT Conor Ventura MD LAB BLOOD ORDERABL ES Final Result Performing Organization Address City/[facility] Co de Phone Number MARCELINO [address] [place] [address] * (ABNORMAL) Comprehensive metabolic panel (11/07/2024 12:23 PM CDT) [facility] Sodium 145 135 - 145 mmol/L Comment:Testing performed by : [address] [address] Potassium, pl 3.1(L) 3.3 - 4.9 mmol/L MARCELINO Comment: Hemolyzed; Potassium value may be falsely elevated by as much as 1.0 mmol/L. Suggest redraw and reanalysis. Testing performed by: [address] [address] Chloride 107 97 - 110 mmol/L MARCELINO Comment:Testing performed by : [address] [address] CO2 22 22 - 32 mmol/L MARCELINO Comment:Testing performed by : [address] [address] Anion gap 16(H) 2 - 15 mmol/L MARCELINO Comment:Testing performed by : [address] [address] BUN 10 6 - 25 mg/dL MARCELINO Comment:Testing performed by : [address] [address] Creatinine 0.50(L) 0.60 - 1.10 mg/dL MARCELINO Comment:Testing performed by : [address] [address] Glucose 161 70 - 199 mg/dL MARCELINO [...] was last revised 2022. Testing performed by: [address] [address] Calcium 10.1 8.5 - 10.3 mg/dL MARCELINO Comment:Testing performed by : [address] [address] Bilirubin, total 0.3 0.1 - 1.2 mg/dL MARCELINO Comment:Testing performed by : [address] [address] Protein, pl 6.5 6.5 - 8.5 g/dL MARCELINO Comment:Testing performed by : [address] [address] Albumin 3.2(L) 3.5 - 5.0 g/dL MARCELINO Comment:Testing performed by : [address] [address] Alk phos 100 40 - 130 Units/L MARCELINO Comment:Testing performed by : [address] [address] ALT 8 7 - 45 Units/L MARCELINO Comment:Testing performed by : [address] [address] AST 13 10 - 45 Units/L MARCELINO Comment:Testing performed by : [address] [address] Blood 11/07/2024 12:2 3 PM CDT 11/07/2024 12:28 PM CDT Conor Ventura MD LAB BLOOD ORDERABL ES Final Result Performing Organization Address [facility] Co de Phone Number MARCELINO [address] [place] [address] * POCT glucose (11/07/2024 8:12 AM CDT) Glucose, POC 138 70 - 199 mg/dL Comment:Testing performed by : [address] [address] Blood 11/07/2024 8:12 AM CDT 11/07/2024 8:12 AM CDT Conor Ventura MD LAB POCT ORDERABLE S - DEVICE Final Result Performing Organization Address [facility] Co de Phone Number OR[address] [place] [address] * POCT glucose (11/07/2024 4:29 AM CDT) Glucose, POC 156 70 - 199 mg/dL Comment:Testing performed by : [address] [address] Blood 11/07/2024 4:29 AM CDT 11/07/2024 4:29 AM CDT Satinder Dougherty MD LAB POCT ORDERABLES - D EVICE Final Result Performing Organization Address [facility] Co de Phone Number [address] [address] * POCT glucose (11/06/2024 11:19 PM CDT) Glucose, POC 134 70 - 199 mg/dL Comment:Testing performed by : [address] [address] Glucose comment 1 Use This Result MARCELINO Comment:Testing performed by : [address] [address] Blood 11/06/2024 11:1 9 PM CDT 11/06/2024 11:19 PM CDT Satinder Dougherty MD LAB POCT ORDERABLES - D EVICE Final Result Performing Organization Address [facility] de Phone Number MARCELINO [address] [place] [address] * POCT glucose (11/06/2024 7:57 PM CDT) Glucose, POC 160 70 - 199 mg/dL Comment:Testing performed by : [address] [address] Glucose comment 1 Use This Result MARCELINO Comment:Testing performed by : [address] [address] Blood 11/06/2024 7:57 PM CDT 11/06/2024 7:57 PM CDT Result [facility] Satinder Dougherty MD LAB POCT ORDERABLES - D EVICE Final Result Performing Organization Address [facility] de Phone Number ORLIN[address] [address] * POCT glucose (11/06/2024 7:38 PM CDT) Glucose, POC 151 70 - 199 mg/dL Comment:Testing performed by : [address] [address] Glucose comment 1 Use This Result MARCELINO Comment:Testing performed by : [address] [address] Blood 11/06/2024 7:38 PM CDT 11/06/2024 7:38 PM CDT Satinder Dougherty MD LAB POCT ORDERABLES - D EVICE Final Result Performing Organization Address [facility]/State/ZIP Co de Phone Number MARCELINO [address] [address] * POCT glucose (11/06/2024 5:21 PM CDT) [facility] Signature Glucose, POC 161 70 - 199 mg/dL Comment:Testing performed by : [address] [address] Blood 11/06/2024 5:21 PM CDT 11/06/2024 5:21 PM CDT Satinder Dougherty MD LAB POCT ORDERABLES - D EVICE Final Result Performing Organization Address City/[facility] Co de Phone Number OR[address] [address] * POCT glucose (11/06/2024 12:41 PM CDT) [facility] Glucose, POC 147 70 - 199 mg/dL Comment:Testing performed by : [facility], [address] [place] [address]., [address] Blood 11/06/2024 12:4 1 PM CDT 11/06/2024 12:41 PM CDT Satinder Dougherty MD LAB POCT ORDERABLES - D EVICE Final Result [facility] [address] * eGFR (11/06/2024 12:34 PM CDT) [facility] eGFR 88 >=60 mL/min/1. 73 m2 Comment: [...] of Race in Diagnosing Kidney Disease, JASN 2021). The CKD-EPI equation should not be used for patients with unstable renal function and has not been validated in children and those over 70. Current interpretive data was last reviewed 2021. Testing performed by: [address] [address] Blood 11/06/2024 12:3 4 PM CDT 11/06/2024 12:50 PM CDT Satinder Dougherty MD LAB BLOOD ORDERABLES Fi nal Result MARCELINO [facility] Department [place] [address] * eGFR (11/06/2024 12:34 PM CDT) eGFR [...] of Race in Diagnosing Kidney Disease, JASN 2021). The CKD-EPI equation should not be used for patients with unstable renal function and has not been validated in children and those over 70. Current interpretive data was last reviewed 2021. Testing performed by: [address] [address] Blood 11/06/2024 12:3 4 PM CDT 11/06/2024 12:50 PM CDT us Satinder Dougherty MD LAB BLOOD ORDERABLES Fi nal Result MARCELINO [address] [facility] Department [place] [address] * (ABNORMAL) Differential, auto (11/06/2024 12:34 PM CDT) Neutrophil abs 8.3(H) 1.5 - 6.5 K/cumm Comment:Testing performed by : [address] [address] Imm gran abs 0.1 0.0 - 0.1 K/cumm MARCELINO Comment:Testing performed by : [address] [address] Lymphocyte abs 1.1 0.8 - 3.3 K/cumm MARCELINO Comment:Testing performed by : [address] [address] Monocyte abs 0.9(H) 0.2 - 0.8 K/cumm MARCELINO Comment:Testing performed by : [address] [address] Eosinophil abs 0.1 0.0 - 0.5 K/cumm MARCELINO Comment:Testing performed by : [address] [address] Basophil abs 0.1 0.0 - 0.1 K/cumm MARCELINO Comment:Testing performed by : [address] [address] Neutrophil pct 79.3 % MARCELINO Comment: Interpretive Data Percent cell count reference ranges are not reported, since discordance with absolute values may lead to misinterpretation of CBC data. Current Interpretive Data was last revised on 2017. Testing performed by: [address] [address] Imm gran pct 1.0 % MARCELINO Comment: Interpretive Data Percent cell count reference ranges are not reported, since discordance with absolute values may lead to misinterpretation of CBC data. Current Interpretive Data was last revised on 2017. Testing performed by: [address] [address] Lymphocyte pct 10.2 % [facility] Comment: Interpretive Data Percent cell count reference ranges are not reported, since discordance with absolute values may lead to misinterpretation of CBC data. Current Interpretive Data was last revised on 2017. Testing performed by: [address] [address] Monocyte pct 8.5 % [facility] Comment: Interpretive Data Percent cell count reference ranges are not reported, since discordance with absolute values may lead to misinterpretation of CBC data. Current Interpretive Data was last revised on 2017. Testing performed by: [address] [address] Eosinophil pct 0.5 % [facility] Comment: Interpretive Data Percent cell count reference ranges are not reported, since discordance with absolute values may lead to misinterpretation of CBC data. Current Interpretive Data was last revised on 2017. Testing performed by: [address] [address] Basophil pct 0.5 % [facility] Comment: Interpretive Data Percent cell count reference ranges are not reported, since discordance with absolute values may lead to misinterpretation of CBC data. Current Interpretive Data was last revised on 2017. Testing performed by: [address] [address] Blood 11/06/2024 12:3 4 PM CDT 11/06/2024 12:50 PM CDT us Ananya MEANS LAB BLOOD ORDERABLES Final Re sult MARCELINO [address] [facility] Department [place] [address] * (ABNORMAL) CBC with auto differential (11/06/2024 12:34 PM CDT) WBC 10.4(H) 3.8 - 9.9 K/cumm Comment:Testing performed by : [address] [address] Hgb 15.1 11.9 - 15.5 g/dL MARCELINO Comment:Testing performed by : [address] [address] Hct 47.3(H) 35.6 - 45.5 % MARCELINO Comment:Testing performed by : [address] [address] Plt 313 150 - 400 K/cumm MARCELINO Comment:Testing performed by : [address] [address] MPV 10.9 9.1 - 12.3 fL MARCELINO Comment:Testing performed by : [address] [address] RBC 5.64(H) 3.90 - 5.20 M/cumm MARCELINO Comment:Testing performed by : [address] [address] MCV 83.9 81.3 - 96.4 fL MARCELINO Comment:Testing performed by : [address] [address] MCH 26.8(L) 27.1 - 33.3 pg MARCELINO Comment:Testing performed by : [address] [address] MCHC 31.9(L) 32.3 - 35.7 g/dL MARCELINO Comment:Testing performed by : [address] [address] RDW CV 18.0(H) 11.1 - 14.9 % MARCELINO Comment:Testing performed by : [address] [address] RDW SD 51.9(H) 35.7 - 48.1 fL MARCELINO Comment:Testing performed by : [address] [address] NRBC abs 0.00 0.00 - 0.01 K/cumm MARCELINO Comment:Testing performed by : [address] [address] Blood 11/06/2024 12:3 4 PM CDT 11/06/2024 12:50 PM CDT Ananya MEANS LAB BLOOD ORDERABLES Final Re sult Performing Organization Address [facility] Co de Phone Number [address] [address] * Magnesium (11/06/2024 12:34 PM CDT) Magnesium 1.4 1.4 - 2.5 mg/dL Comment:Testing performed by : [address] [id number] Blood 11/06/2024 12:3 4 PM CDT 11/06/2024 12:50 PM CDT Satinder Dougherty MD LAB BLOOD ORDERABLES Fi nal Result Performing Organization Address [facility] de Phone Number [address] [address] * Creatinine (11/06/2024 12:34 PM CDT) Pathologist [facility] Creatinine 0.60 0.60 - 1.10 mg/dL Comment:Testing performed by : [address] [address] Blood 11/06/2024 12:3 4 PM CDT 11/06/2024 12:50 PM CDT Satinder Dougherty MD LAB BLOOD ORDERABLES Fi nal Result Performing Organization Address [facility] Co de Phone Number [address] [address] * (ABNORMAL) Basic metabolic panel (11/06/2024 12:34 PM CDT) Pathologist [facility] Sodium 142 135 - 145 mmol/L Comment:Testing performed by : [address] [address] Potassium, pl 2.9(L) 3.3 - 4.9 mmol/L MARCELINO Comment: Hemolyzed; Potassium value may be falsely elevated by as much as 1.0 mmol/L. Suggest redraw and reanalysis. Testing performed by: [address] [address] Chloride 101 97 - 110 mmol/L MARCELINO Comment:Testing performed by : [address] [address] CO2 20(L) 22 - 32 mmol/L MARCELINO Comment:Testing performed by : [address] [address] Anion gap 21(H) 2 - 15 mmol/L MARCELINO Comment:Testing performed by : [address] [address] BUN 9 6 - 25 mg/dL MARCELINO Comment:Testing performed by : [address], [place]., [address] Creatinine 0.64 0.60 - 1.10 mg/dL MARCELINO Comment:Testing performed by : [address] [address] Glucose 164 70 - 199 mg/dL MARCELINO Comment: Interpretive [...] was last revised 2022. Testing performed by: [address] [address] Calcium 10.2 8.5 - 10.3 mg/dL MARCELINO Comment:Testing performed by : [address] [address] Blood 11/06/2024 12:3 4 PM CDT 11/06/2024 12:50 PM CDT Satinder Dougherty MD LAB BLOOD ORDERABLES Fi nal Result Performing Organization Address [facility] de Phone Number MARCELINO [facility] [place] [address] * (ABNORMAL) POC Blood Gas and Chemistries, Arterial - (11/06/2024 9:08 AM CDT) pH, art POC 7.54(H) 7.35 - 7.45 Comment:Testing performed by : [address] [address] pCO2, art POC 28(L) 35 - 45 mmHg MARCELINO Comment:Testing performed by : [address] [address] pO2, art POC 95 83 - 108 mmHg MARCELINO Comment:Testing performed by : [address] [address] HCO3, art (Calc) POC 24 20 - 30 mmol/L MARCELINO Comment:Testing performed by : [address] [address] Base excess, art POC 2 mmol/L MARCELINO Comment: Interpretive Data No reference range established. Current interpretive data was last revised 2020. Testing performed by: [address] [address] Blood 11/06/2024 9:08 AM CDT 11/06/2024 9:08 AM CDT Satinder Dougherty MD LAB POCT ORDERABLES - D EVICE Final Result Performing Organization Address [facility] Co de Phone Number MARCELINO [address] [facility] [place] [address] * XR Chest 1 View (11/06/2024 9:08 [...] Layla Ballard D.O. PS: PS Report ID: [id number] Reading Location: [id number] Procedure Note Layla aBllard, DO - 11/06/2024 EXAM DESCRIPTION: XR CHEST [...] Layla Ballard D.O. PS: PS Report ID: [id number] Reading Location: [id number] Satinder Dougherty MD IMG XR PROCEDURES Final Result * POCT glucose (11/06/2024 8:29 AM CDT) Glucose, POC 132 70 - 199 mg/dL Comment:Testing performed by : [address] [address] Blood 11/06/2024 8:29 AM CDT 11/06/2024 8:29 AM CDT Result [facility] Satinder Dougherty MD LAB POCT ORDERABLES - D EVICE Final Result Performing Organization Address [facility] de Phone Number [address] [place] [address] * POCT glucose (11/06/2024 4:46 AM CDT) Glucose, POC 155 70 - 199 mg/dL Comment:Testing performed by : [address] [address] Glucose comment 1 Use This Result MARCELINO Comment:Testing performed by : [address] [address] Blood 11/06/2024 4:46 AM CDT 11/06/2024 4:46 AM CDT Result [facility] Satinder Dougherty MD LAB POCT ORDERABLES - D EVICE Final Result Performing Organization Address [facility] de Phone Number [address] [place] [address] * POCT glucose (11/06/2024 12:07 AM CDT) Glucose, POC 140 70 - 199 mg/dL Comment:Testing performed by : [address] [address] Glucose comment 1 Use This Result MARCELINO Comment:Testing performed by : [address] [address] Blood 11/06/2024 12:0 7 AM CDT 11/06/2024 12:07 AM CDT Satinder Dougherty MD LAB POCT ORDERABLES - D EVICE Final Result Performing Organization Address [facility] de Phone Number MARCELINO [address] [address] * POCT glucose (11/05/2024 9:33 PM CDT) Glucose, POC 127 70 - 199 mg/dL Comment:Testing performed by : [address] [address] Glucose comment 1 Use This Result MARCELINO Comment:Testing performed by : [address] [address] Blood 11/05/2024 9:33 PM CDT 11/05/2024 9:33 PM CDT Satinder Dougherty MD LAB POCT ORDERABLES - D EVICE Final Result Performing Organization Address [facility] de Phone Number [address] [address] * POCT glucose (11/05/2024 4:12 PM CDT) Glucose, POC 140 70 - 199 mg/dL Comment:Testing performed by : [address] [address] Blood 11/05/2024 4:12 PM CDT 11/05/2024 4:12 PM CDT Satinder Dougherty MD LAB POCT ORDERABLES - D EVICE Final Result Performing Organization Address [facility] Co de Phone Number [place] [address] [place] [address] * MRI Brain WO Contrast (11/05/2024 1:10 [...] Wilfredo Jonas D.O. AP: AP Report ID: [id number] Reading Location: [id number] Procedure Note Wilfredo Jonas, DO - 11/05/2024 EXAM DESCRIPTION: MRI BRAIN WO CONTRAST REASON FOR STUDY: Mental status change, unknown cause Mental status change, unknown cause. Best obtained imaging due to patient movement and breathing TECHNIQUE: Multiplanar imaging includes non-contrasted T1, T2, FLAIR, and diffusion with ADC map sequences. Additional sequence(s) sensitive [employer] (Wayin). Images stored on PACS. COMPARISON: MRI brain [...] mandible.There are bilateral mandibular postoperative changes. Rounded Q7pbmhiladsjdyjhst along the expected location of the mandibular [...] Wilfredo Jonas D.O. AP: AP Report ID: [id number] Reading Location: [id number] Arsh Ruby MD IMG MRI PROCEDURES Fi nal Result * MRI Cervical Spine WO Contrast (11/05/2024 12:52 PM CDT) Anatomical Region Laterality Modality Spine N/A Magnetic Resonan ce 11/05/2024 2:04 PM CDT Narrative 11/05/2024 2:14 PM CDT [...] and facet arthropathy with severe left and tapj-zj-ezbaozll right neural foraminal narrowing. C4-C5: Retrolisthesis of [...] severe and additional findings as above. 3. Cmho-thovcct-tkvm-right posterior paraspinal soft tissue STIR hyperintense signal on both sides is nonspecific and could reflect a strain or myositis. Request clinical correlation. 4. Recent cervical spine imaging is not available for comparison. An addendum can be made once priors are provided. THIS IS AN ELECTRONICALLY VERIFIED FINAL REPORT 11/05/2024 2:14 PM - Electronically signed by Wilfredo Jonas D.O. AP: AP Report ID: [id number] Reading Location: [id number] Procedure Note Wilfredo Jonas, DO - 11/05/2024 [...] spurringand facet arthropathy with severe left and lcyh-hr-qzaxfqbj right neuralforaminal narrowing. C4-C5: Retrolisthesis of C4 [...] severe and additional findings as above. 3. Hbto-wvzmkov-ejgt-right posterior paraspinal soft tissue STIR hyperintense signal on both sides is nonspecific and could reflect astrain or myositis. Request clinical correlation. 4. Recent cervical spine imaging is not available for comparison. An addendum can be made once priors are provided. THIS IS AN ELECTRONICALLY VERIFIED FINAL REPORT 11/05/2024 2:14 PM - Electronically signed by Wilfredo Jonas D.O. AP: KEVIN Report ID: [id number] Reading Location: [place] [address] Result [facility] Arsh Ruby MD IMG MRI PROCEDURES Fi nal Result * POCT glucose (11/05/2024 8:11 AM CDT) Glucose, POC 146 70 - 199 mg/dL Comment:Testing performed by : [address] [address] Glucose comment 1 Use This Result MARCELINO Comment:Testing performed by : [address] [address] Blood 11/05/2024 8:11 AM CDT 11/05/2024 8:11 AM CDT Result [facility] Satinder Dougherty MD LAB POCT ORDERABLES - D EVICE Final Result Performing Organization Address [facility] Co de Phone Number [address] [place] [address] * POCT glucose (11/05/2024 5:56 AM CDT) Glucose, POC 147 70 - 199 mg/dL Comment:Testing performed by : [address] [address] Glucose comment 1 Use This Result MARCELINO Comment:Testing performed by : [address] [address] Blood 11/05/2024 5:56 AM CDT 11/05/2024 5:56 AM CDT Satinder Dougherty MD LAB POCT ORDERABLES - D EVICE Final Result Performing Organization Address [facility] Co de Phone Number [address] [employer] [address] * (ABNORMAL) Differential, auto (11/05/2024 4:52 AM CDT) Pathologist [facility] Neutrophil abs 7.5(H) 1.5 - 6.5 K/cumm Comment:Testing performed by : [address] [address] Imm gran abs 0.1 0.0 - 0.1 K/cumm MARCELINO Comment:Testing performed by : [address] [address] Lymphocyte abs 0.9 0.8 - 3.3 K/cumm MARCELINO Comment:Testing performed by : [address] [address] Monocyte abs 1.0(H) 0.2 - 0.8 K/cumm MARCELINO Comment:Testing performed by : [address] [address] Eosinophil abs 0.2 0.0 - 0.5 K/cumm MARCELINO Comment:Testing performed by : [address] [address] Basophil abs 0.0 0.0 - 0.1 K/cumm [facility] Comment:Testing performed by : [address] [address] Neutrophil pct 77.6 % [facility] Comment: Interpretive Data Percent cell count reference ranges are not reported, since discordance with absolute values may lead to misinterpretation of CBC data. Current Interpretive Data was last revised on 2017. Testing performed by: [address] [address] Imm gran pct 0.6 % [facility] Comment: Interpretive Data Percent cell count reference ranges are not reported, since discordance with absolute values may lead to misinterpretation of CBC data. Current Interpretive Data was last revised on 2017. Testing performed by: [address] [address] Lymphocyte pct 9.6 % [facility] Comment: Interpretive Data Percent cell count reference ranges are not reported, since discordance with absolute values may lead to misinterpretation of CBC data. Current Interpretive Data was last revised on 2017. Testing performed by: [address] [place] [address] Monocyte pct 10.3 % MARCELINO Comment: Interpretive Data Percent cell count reference ranges are not reported, since discordance with absolute values may lead to misinterpretation of CBC data. Current Interpretive Data was last revised on 2017. Testing performed by: [address] [address] Eosinophil pct 1.6 % MARCELINO Comment: Interpretive Data Percent cell count reference ranges are not reported, since discordance with absolute values may lead to misinterpretation of CBC data. Current Interpretive Data was last revised on 2017. Testing performed by: [address] [address] Basophil pct 0.3 % MARCELINO Comment: Interpretive Data Percent cell count reference ranges are not reported, since discordance with absolute values may lead to misinterpretation of CBC data. Current Interpretive Data was last revised on 2017. Testing performed by: [address] [address] Blood 11/05/2024 4:52 AM CDT 11/05/2024 5:31 AM CDT us Ananya MEANS LAB BLOOD ORDERABLES Final [facility] [address] [facility] Department [place] [address] * (ABNORMAL) CBC with auto differential (11/05/2024 4:52 AM CDT) Pathologist [facility] WBC 9.6 3.8 - 9.9 K/cumm Comment:Testing performed by : [address] [address] Hgb 12.0 11.9 - 15.5 g/dL MARCELINO HAYWOOD Comment:Testing performed by : [address] [address] Hct 38.7 35.6 - 45.5 % MARCELINO Comment:Testing performed by : [address] [address] Plt 374 150 - 400 K/cumm MARCELINO HAYWOOD Comment:Testing performed by : [address] [address] MPV 10.5 9.1 - 12.3 fL MARCELINO Comment:Testing performed by : [address] [address] RBC 4.57 3.90 - 5.20 M/cumm MARCELINO Comment:Testing performed by : [address] [address] MCV 84.7 81.3 - 96.4 fL MARCELINO Comment:Testing performed by : [address] [address] MCH 26.3(L) 27.1 - 33.3 pg MARCELINO Comment:Testing performed by : [address] [address] MCHC 31.0(L) 32.3 - 35.7 g/dL MARCELINO Comment:Testing performed by : [address] [address] RDW CV 16.9(H) 11.1 - 14.9 % MARCELINO Comment:Testing performed by : [address] [address] RDW SD 52.2(H) 35.7 - 48.1 fL MARCELINO Comment:Testing performed by : [address] [address] NRBC abs 0.00 0.00 - 0.01 K/cumm MARCELINO Comment:Testing performed by : [address] [address] Blood 11/05/2024 4:52 AM CDT 11/05/2024 5:31 AM CDT us Ananya MEANS LAB BLOOD ORDERABLES Final Re sult [facility] [address] [facility] Department [place] [address] * POCT glucose (11/05/2024 1:22 AM FAMILY SUPPORT WORKER) Glucose, POC 138 70 - 199 mg/dL Comment:Testing performed by : [address] [address] Glucose comment 1 Use This Result MARCELINO Comment:Testing performed by : [address] [address] Blood 11/05/2024 1:22 AM FAMILY SUPPORT WORKER 11/05/2024 1:22 AM FAMILY SUPPORT WORKER Satinder Dougherty MD LAB POCT ORDERABLES - D EVICE Final Result Performing Organization Address [facility] de Phone Number [address] [address] * POCT glucose (11/04/2024 10:34 PM FAMILY SUPPORT WORKER) Glucose, POC 150 70 - 199 mg/dL Comment:Testing performed by : [address] [address] Glucose comment 1 Use This Result MARCELINO Comment:Testing performed by : [address] [address] Blood 11/04/2024 10:3 4 PM FAMILY SUPPORT WORKER 11/04/2024 10:34 PM FAMILY SUPPORT WORKER Satinder Dougherty MD LAB POCT ORDERABLES - D EVICE Final Result Performing Organization Address [facility] de Phone Number [address] [place] [address] * (ABNORMAL) Urinalysis reflex to microscopic and culture Urine, bladder (11/04/2024 6:17 PM FAMILY SUPPORT WORKER) Color, ur Yellow Yellow Comment:Testing performed by : [address] [address] Clarity, ur Cloudy(A) Clear MARCELINO Comment:Testing performed by : [address] [address] Specific gravity, ur 1.017 1.003 - 1.030 MARCELINO Comment:Testing performed by : [facility], [address] [place] [address], [place]., [address] pH, urine 6.5 MARCELINO Comment: Interpretive Data U rine pH is affected by diet, medications, systemic acid-base disturbances, and renal tubular function. pH may affect urinary stone formation. For example, urine pH below 6.0 may help reduce the tendency for calcium phosphate stones and pH greater than 6.0 may reduce the tendency for uric acid stone formation. Source: [facility] [place] Current Interpretive Data was last revised on 2017 Testing performed by: [facility], [address] [place] [address], [place]., [address] Protein, ur ql 2+(A) Negative MARCELINO Comment:Testing performed by : [address], [place]., [address] Glucose, ur ql 1+(A) Negative MARCELINO Comment:Testing performed by : [address], [place]., [address] Ketones, ur 2+(A) Negative MARCELINO Comment:Testing performed by : [address], [place]., [address] Bilirubin, ur Negative Negative MARCELINO Comment:Testing performed by : [address], [place]., [address] Blood, ur 3+(A) Negative MARCELINO Comment:Testing performed by : [address], [place]., [address] Urobilinogen, ur 2.0(A) <2.0 mg/dL MARCELINO Comment:Testing performed by : [address], [place]., [address] Nitrite, ur Negative Negative MARCELINO Comment:Testing performed by : [address], [place]., [address] Leukocyte esterase, ur 4+(A) Negative MARCELINO Comment:Testing performed by : [address], [place]., [address] UA reflex comment Reflex to microscopic UA will be performed. MARCELINO Comment:Testing performed by : [address], [place]., [address] Urine, bladder 11/04/2024 6: 17 PM FAMILY SUPPORT WORKER 11/04/2024 6:21 PM FAMILY SUPPORT WORKER Narrative MARCELINO - 11/04/2024 6:24 PM FAMILY SUPPORT WORKER Straight catheterization please Satinder Dougherty MD LAB MICROBIOLOGY - GENE RAL ORDERABLES Final Result Performing Organization Address [facility] Co de Phone Number MARCELINO [address] [place] [address] * (ABNORMAL) Urinalysis, microscopic only (11/04/2024 6:17 PM FAMILY SUPPORT WORKER) WBC, ur >50(A) 0 - 5 /HPF Comment:Testing performed by : [facility], [address] [place] [address]., [address] RBC, ur >50(A) 0 - 2 /HPF MARCELINO Comment:Testing performed by : [facility], [address] [place] [address]., [address] Bacteria, ur 4+(A) MARCELINO Comment:Testing performed by : [address] [address] Mucous, ur Present(A) MARCELINO Comment:Testing performed by : [address] [address] Culture Reflex Comment Reflex to urine culture will be performed. MARCELINO Comment:Testing performed by : [address] [address] Urine, bladder 11/04/2024 6: 17 PM FAMILY SUPPORT WORKER 11/04/2024 6:21 PM FAMILY SUPPORT WORKER Satinder Dougherty MD LAB URINE ORDERABLES Fi nal Result Performing Organization Address [facility] Co de Phone Number MARCELINO [address] [facility] [address] * (ABNORMAL) Urine culture Urine, bladder (11/04/2024 6:17 PM FAMILY SUPPORT WORKER) Report Final Report: Greater than or equal to 100,000 colonies/mL of Enterococcus faecium (.) Comment:Testing performed by : [facility], [address] [place] [address] Organism ENTEROCOCCUS FAECIUM [facility] Urine, bladder 11/04/2024 6: 17 PM FAMILY SUPPORT WORKER 11/04/2024 9:45 PM FAMILY SUPPORT WORKER Narrative [facility] - 11/08/2024 4:05 PM CDT Urine culture reflexed based upon urinalysis results. Testing performed by [facility] Microbiology Laboratory ([phone]) Organism Antibiotic Method Susceptibility Enterococcus faecium Daptomycin (VLADIMIR) (VLADIMIR) INTERPRETA TION Susceptible Dose-dependent Enterococcus faecium Ampicillin (VLADIMIR) INTERPRETATION Resistant Enterococcus faecium Vancomycin (VLADIMIR) INTERPRETATION Resistant Enterococcus faecium Linezolid (VLADIMIR) INTERPRETATION Susceptible Enterococcus faecium Doxycycline (VLADIMIR) INTERPRETATION Resistant Enterococcus faecium Nitrofurantoin (VLADIMIR) INTERPRETATI ON Resistant Satinder Dougherty MD LAB MICROBIOLOGY - GENE RAL ORDERABLES Final Result Performing Organization Address [facility] Co de Phone Number [address] [place] [address] * POCT glucose (11/04/2024 5:07 PM FAMILY SUPPORT WORKER) Glucose, POC 162 70 - 199 mg/dL Comment:Testing performed by : [address] [address] Blood 11/04/2024 5:07 PM FAMILY SUPPORT WORKER 11/04/2024 5:07 PM FAMILY SUPPORT WORKER Satinder Dougherty MD LAB POCT ORDERABLES - D EVICE Final Result Performing Organization Address [facility] Co de Phone Number [place] [address] [place] [address] * (ABNORMAL) aPTT (11/04/2024 2:21 PM FAMILY SUPPORT WORKER) aPTT 62(H) 22 - 37 sec Comment: Ref Range High Interpretive data aPTT test has not been evaluated for monitoring heparin therapy. The anti-Xa is the preferred test. Current interpretive data was last revised on 2019. Testing performed by: [address] [address] Blood 11/04/2024 2:21 PM FAMILY SUPPORT WORKER 11/04/2024 2:26 PM FAMILY SUPPORT WORKER us Satinder Dougherty MD LAB BLOOD ORDERABLES Fi nal Result MARCELINO [address] [facility] Department [place] [address] * (ABNORMAL) Differential, auto (11/04/2024 8:54 AM FAMILY SUPPORT WORKER) Neutrophil abs 7.5(H) 1.5 - 6.5 K/cumm Comment:Testing performed by : [address] [address] Imm gran abs 0.1 0.0 - 0.1 K/cumm MARCELINO Comment:Testing performed by : [address] [address] Lymphocyte abs 1.0 0.8 - 3.3 K/cumm MARCELINO Comment:Testing performed by : [address] [address] Monocyte abs 0.8 0.2 - 0.8 K/cumm MARCELINO Comment:Testing performed by : [address] [address] Eosinophil abs 0.1 0.0 - 0.5 K/cumm MARCELINO Comment:Testing performed by : [address] [address] Basophil abs 0.0 0.0 - 0.1 K/cumm MARCELINO Comment:Testing performed by : [address] [address] Neutrophil pct 79.1 % MARCELINO Comment: Interpretive Data Percent cell count reference ranges are not reported, since discordance with absolute values may lead to misinterpretation of CBC data. Current Interpretive Data was last revised on 2017. Testing performed by: [address] [address] Imm gran pct 0.6 % MARCELINO Comment: Interpretive Data Percent cell count reference ranges are not reported, since discordance with absolute values may lead to misinterpretation of CBC data. Current Interpretive Data was last revised on 2017. Testing performed by: [address] [address] Lymphocyte pct 10.4 % [facility] Comment: Interpretive Data Percent cell count reference ranges are not reported, since discordance with absolute values may lead to misinterpretation of CBC data. Current Interpretive Data was last revised on 2017. Testing performed by: [address] [address] Monocyte pct 8.3 % [facility] Comment: Interpretive Data Percent cell count reference ranges are not reported, since discordance with absolute values may lead to misinterpretation of CBC data. Current Interpretive Data was last revised on 2017. Testing performed by: [address] [address] Eosinophil pct 1.3 % [facility] Comment: Interpretive Data Percent cell count reference ranges are not reported, since discordance with absolute values may lead to misinterpretation of CBC data. Current Interpretive Data was last revised on 2017. Testing performed by: [address] [address] Basophil pct 0.3 % [facility] Comment: Interpretive Data Percent cell count reference ranges are not reported, since discordance with absolute values may lead to misinterpretation of CBC data. Current Interpretive Data was last revised on 2017. Testing performed by: [address] [address] Blood 11/04/2024 8:54 AM FAMILY SUPPORT WORKER 11/04/2024 9:10 AM FAMILY SUPPORT WORKER us Ananya MEANS LAB BLOOD ORDERABLES Final Re sult MARCELINO HAYWOOD [address] [facility] Department [place] [address] * (ABNORMAL) CBC with auto differential (11/04/2024 8:54 AM FAMILY SUPPORT WORKER) WBC 9.5 3.8 - 9.9 K/cumm Comment:Testing performed by : [address] [address] Hgb 13.1 11.9 - 15.5 g/dL MARCELINO Comment:Testing performed by : [address] [address] Hct 41.5 35.6 - 45.5 % MARCELINO Comment:Testing performed by : [address] [address] Plt 387 150 - 400 K/cumm MARCELINO Comment:Testing performed by : [address] [address] MPV 10.4 9.1 - 12.3 fL MARCELINO Comment:Testing performed by : [address], [address] RBC 4.89 3.90 - 5.20 M/cumm MARCELINO Comment:Testing performed by : [address] [address] MCV 84.9 81.3 - 96.4 fL MARCELINO Comment:Testing performed by : [address] [address] MCH 26.8(L) 27.1 - 33.3 pg MARCELINO Comment:Testing performed by : [address] [address] MCHC 31.6(L) 32.3 - 35.7 g/dL MARCELINO Comment:Testing performed by : [address] [address] RDW CV 16.9(H) 11.1 - 14.9 % MARCELINO Comment:Testing performed by : [address], [address] RDW SD 52.2(H) 35.7 - 48.1 fL MARCELINO Comment:Testing performed by : [address] [address] NRBC abs 0.00 0.00 - 0.01 K/cumm MARCELINO Comment:Testing performed by : [address] [address] Blood 11/04/2024 8:54 AM FAMILY SUPPORT WORKER 11/04/2024 9:10 AM FAMILY SUPPORT WORKER Ananya MEANS LAB BLOOD ORDERABLES Final Re sult Performing Organization Address City/[facility] Co de Phone Number MARCELINO [address] [facility] [place] [address] * (ABNORMAL) aPTT (11/04/2024 8:54 AM FAMILY SUPPORT WORKER) aPTT 69(H) 22 - 37 sec Comment: Ref Range High Interpretive data aPTT test has not been evaluated for monitoring heparin therapy. The anti-Xa is the preferred test. Current interpretive data was last revised on 2019. Testing performed by: [address] [address] Blood 11/04/2024 8:54 AM FAMILY SUPPORT WORKER 11/04/2024 9:10 AM FAMILY SUPPORT WORKER Jarrett Hurley MD LAB BLOOD ORDERABLES Fi nal Result Performing Organization Address [facility] de Phone Number [address] [address] * POCT glucose (11/04/2024 8:47 AM FAMILY SUPPORT WORKER) [facility] Glucose, POC 153 70 - 199 mg/dL Comment:Testing performed by : [address] [address] Glucose comment 1 Use This Result MARCELINO Comment:Testing performed by : [address] [address] Blood 11/04/2024 8:47 AM FAMILY SUPPORT WORKER 11/04/2024 8:47 AM FAMILY SUPPORT WORKER Satinder Dougherty MD LAB POCT ORDERABLES - D EVICE Final Result Performing Organization Address [facility] Co de Phone Number [place] [phone] [facility] [place] [address] * POCT glucose (11/04/2024 3:35 AM FAMILY SUPPORT WORKER) Glucose, POC 162 70 - 199 mg/dL Comment:Testing performed by : [address] [address] Glucose comment 1 Use This Result MARCELINO Comment:Testing performed by : [address] [address] Blood 11/04/2024 3:35 AM FAMILY SUPPORT WORKER 11/04/2024 3:35 AM FAMILY SUPPORT WORKER Satinder Dougherty MD LAB POCT ORDERABLES - D EVICE Final Result Performing Organization Address [facility] Co de Phone Number [address] [place] [address] * (ABNORMAL) aPTT (11/04/2024 12:10 AM FAMILY SUPPORT WORKER) [facility] aPTT 52(H) 22 - 37 sec Comment: Ref Range High Interpretive data aPTT test has not been evaluated for monitoring heparin therapy. The anti-Xa is the preferred test. Current interpretive data was last revised on 2019. Testing performed by: [address] [address] Blood 11/04/2024 12:1 0 AM FAMILY SUPPORT WORKER 11/04/2024 12:13 AM FAMILY SUPPORT WORKER us Jarrett Hurley MD LAB BLOOD ORDERABLES Fi nal Result Performing Organization Address [facility] Co de Phone Number [facility] [address] [facility] [place] [address] * POCT glucose (11/03/2024 11:02 PM FAMILY SUPPORT WORKER) Glucose, POC 135 70 - 199 mg/dL Comment:Testing performed by : [address] [address] Glucose comment 1 Use This Result MARCELINO Comment:Testing performed by : [address] [address] Blood 11/03/2024 11:0 2 PM FAMILY SUPPORT WORKER 11/03/2024 11:02 PM FAMILY SUPPORT WORKER Result [facility] Satinder Dougherty MD LAB POCT ORDERABLES - D EVICE Final Result Performing Organization Address City/[facility]/ZIP Co de Phone Number MARCELINO [facility] [address] * POCT glucose (11/03/2024 7:11 PM FAMILY SUPPORT WORKER) Glucose, POC 148 70 - 199 mg/dL Comment:Testing performed by : [address] [address] Glucose comment 1 Use This Result MARCELINO Comment:Testing performed by : [address] [address] Blood 11/03/2024 7:11 PM FAMILY SUPPORT WORKER 11/03/2024 7:11 PM FAMILY SUPPORT WORKER Satinder Dougherty MD LAB POCT ORDERABLES - D EVICE Final Result Performing Organization Address [facility] Co de Phone Number MARCELINO [address] [address] * (ABNORMAL) aPTT (11/03/2024 4:26 PM FAMILY SUPPORT WORKER) [facility] aPTT 105(H) 22 - 37 sec Comment: Ref Range High Interpretive data aPTT test has not been evaluated for monitoring heparin therapy. The anti-Xa is the preferred test. Current interpretive data was last revised on 2019. Testing performed by: [address] [address] Blood 11/03/2024 4:26 PM FAMILY SUPPORT WORKER 11/03/2024 4:32 PM FAMILY SUPPORT WORKER Result [facility] Satinder Dougherty MD LAB BLOOD ORDERABLES Fi nal Result Performing Organization Address City/[facility]/ZIP Co de Phone Number MARCELINO [facility] [place] [address] * POCT glucose (11/03/2024 4:01 PM FAMILY SUPPORT WORKER) [facility] Glucose, POC 133 70 - 199 mg/dL Comment:Testing performed by : [facility], [address] [place] [address]., [address] Glucose comment 1 Use This Result MARCELINO HAYWOOD Comment:Testing performed by : [address] [address] Glucose comment 2 RN/MD Notified MARCELINO Comment:Testing performed by : [address] [address] Blood 11/03/2024 4:01 PM FAMILY SUPPORT WORKER 11/03/2024 4:01 PM FAMILY SUPPORT WORKER Satinder Dougherty MD LAB POCT ORDERABLES - D EVICE Final Result Performing Organization Address City/[facility]/ZIP Co de Phone Number MARCELINO [address] [place] [address] * POCT glucose (11/03/2024 11:57 AM FAMILY SUPPORT WORKER) [facility] Glucose, POC 142 70 - 199 mg/dL Comment:Testing performed by : [facility], [address] [place] [address]., [address] Glucose comment 1 Use This Result MARCELINO Comment:Testing performed by : [facility], [address] [place] [address]., [address] Glucose comment 2 RN/MD Notified MARCELINO Comment:Testing performed by : [address] [address] Blood 11/03/2024 11:5 7 AM FAMILY SUPPORT WORKER 11/03/2024 11:57 AM FAMILY SUPPORT WORKER us Satinder Dougherty MD LAB POCT ORDERABLES - D EVICE Final Result MARCELINO [address] [place] [address] * TRANSTHORACIC ECHO (TTE) LIMITED/FOLLOW UP WO DOPPLER/CF W CONTRAST (11/03/2024 11:55 AM FAMILY SUPPORT WORKER) LV EF 55-60 % CONS SCIMAGE Anatomical Region Laterality Modality Ultrasound 11/03/2024 11:4 1 AM FAMILY SUPPORT WORKER Narrative 11/03/2024 12:41 PM FAMILY SUPPORT WORKER Transthoracic Echocardiographic Report Patient Name: SHARI KAISER M : 1940 (84y 5m) Gender: F Study Date: 11/03/2024 11:41:17 AM Ht(Inch): 66 Wt(Lb): 164 BSA: 1.86 Guest Experience Specialist: Saskia Castanon RDCS Location: [id number] Order Provider: SATINDER DOUGHERTY BMI: 26.47 Ref Provider: SATINDER DOUGHERTY - PROCEDURES: Echocardiographic Report: ([id number]) Limited Echocardiography with contrast, transthoracic, 2D, includes [...] By: Jarrett Hurley MD 11/03/2024 12:40:40 PM FAMILY SUPPORT WORKER Procedure Note Jarrett Hurley MD - 11/03/2024 Transthoracic Echocardiographic Report Patient Name: SHARI KAISER M : 1940 (84y 5m) Gender: F Study Date: 11/03/2024 11:41:17 AM Ht(Inch): 66 Wt(Lb): 164 BSA: 1.86 Guest Experience Specialist: Saskia Castanon EDSON Location: [id number] Order Provider:SATINDER DOUGHERTY BMI: 26.47 Ref Provider: SATINDER DOUGHERTY - PROCEDURES: Echocardiographic Report: ([id number]) Limited Echocardiography with contrast,transthoracic, 2D, includes M-mode [...] By: Jarrett Hurley MD 11/03/2024 12:40:40 PM FAMILY SUPPORT WORKER Result Kyree Dougherty MD CV ECHO PROCEDURES Gena l Result * (ABNORMAL) aPTT (11/03/2024 9:36 AM FAMILY SUPPORT WORKER) aPTT 67(H) 22 - 37 sec Comment: Ref Range High Interpretive data aPTT test has not been evaluated for monitoring heparin therapy. The anti-Xa is the preferred test. Current interpretive data was last revised on 2019. Testing performed by: [address] [address] Blood 11/03/2024 9:36 AM FAMILY SUPPORT WORKER 11/03/2024 9:40 AM FAMILY SUPPORT WORKER us Satinder Dougherty MD LAB BLOOD ORDERABLES Fi nal Result Performing Organization Address [facility] de Phone Number [place] [phone] [facility] [place] [address] * POCT glucose (11/03/2024 8:00 AM FAMILY SUPPORT WORKER) Glucose, POC 148 70 - 199 mg/dL Comment:Testing performed by : [address] [address] Glucose comment 1 Use This Result MARCELINO HAYWOOD Comment:Testing performed by : [address] [address] Glucose comment 2 RN/MD Notified MARCELINO Comment:Testing performed by : [address] [address] Blood 11/03/2024 8:00 AM FAMILY SUPPORT WORKER 11/03/2024 8:00 AM FAMILY SUPPORT WORKER us Satinder Dougherty MD LAB POCT ORDERABLES - D EVICE Final Result Performing Organization Address [facility] Co de Phone Number [place] 064892 [facility] [employer] [address] * POCT glucose (11/03/2024 4:09 AM FAMILY SUPPORT WORKER) [facility] Glucose, POC 165 70 - 199 mg/dL Comment:Testing performed by : [address] [address] Glucose comment 1 RN/MD Notified MARCELINO Comment:Testing performed by : [address] [address] Glucose comment 2 Use This Result MARCELINO HAYWOOD Comment:Testing performed by : [address] [address] Blood 11/03/2024 4:09 AM FAMILY SUPPORT WORKER 11/03/2024 4:09 AM FAMILY SUPPORT WORKER us Satinder Dougherty MD LAB POCT ORDERABLES - D EVICE Final Result MARCELINO [address] [facility] Department of Laboratories [place], [place] [id number] * Differential, auto (11/03/2024 2:21 AM FAMILY SUPPORT WORKER) [facility] Neutrophil abs 5.0 1.5 - 6.5 K/cumm Comment:Testing performed by : [address] [address] Imm gran abs 0.0 0.0 - 0.1 K/cumm MARCELINO Comment:Testing performed by : [address] [address] Lymphocyte abs 1.0 0.8 - 3.3 K/cumm MARCELINO Comment:Testing performed by : [address] [address] Monocyte abs 0.7 0.2 - 0.8 K/cumm MARCELINO Comment:Testing performed by : [address] [address] Eosinophil abs 0.3 0.0 - 0.5 K/cumm MARCELINO Comment:Testing performed by : [address] [address] Basophil abs 0.0 0.0 - 0.1 K/cumm MARCELINO Comment:Testing performed by : [address] [place]., [address] Neutrophil pct 70.9 % [facility] Comment: Interpretive Data Percent cell count reference ranges are not reported, since discordance with absolute values may lead to misinterpretation of CBC data. Current Interpretive Data was last revised on 2017. Testing performed by: [address] [address] Imm gran pct 0.4 % [facility] Comment: Interpretive Data Percent cell count reference ranges are not reported, since discordance with absolute values may lead to misinterpretation of CBC data. Current Interpretive Data was last revised on 2017. Testing performed by: [address] [address] Lymphocyte pct 14.0 % [facility] Comment: Interpretive Data Percent cell count reference ranges are not reported, since discordance with absolute values may lead to misinterpretation of CBC data. Current Interpretive Data was last revised on 2017. Testing performed by: [address] [address] Monocyte pct 10.3 % [facility] Comment: Interpretive Data Percent cell count reference ranges are not reported, since discordance with absolute values may lead to misinterpretation of CBC data. Current Interpretive Data was last revised on 2017. Testing performed by: [address] [address] Eosinophil pct 4.0 % [facility] Comment: Interpretive Data Percent cell count reference ranges are not reported, since discordance with absolute values may lead to misinterpretation of CBC data. Current Interpretive Data was last revised on 2017. Testing performed by: [address] [address] Basophil pct 0.4 % [facility] Comment: Interpretive Data Percent cell count reference ranges are not reported, since discordance with absolute values may lead to misinterpretation of CBC data. Current Interpretive Data was last revised on 2017. Testing performed by: [address] [address] Blood 11/03/2024 2:21 AM FAMILY SUPPORT WORKER 11/03/2024 3:01 AM FAMILY SUPPORT WORKER us Ananya MEANS LAB BLOOD ORDERABLES Final Re sult MARCELINO [address] [facility] Department [place] [address] * (ABNORMAL) CBC with auto differential (11/03/2024 2:21 AM FAMILY SUPPORT WORKER) [facility] Signature WBC 7.0 3.8 - 9.9 K/cumm Comment:Testing performed by : [address] [address] Hgb 11.3(L) 11.9 - 15.5 g/dL MARCELINO Comment:Testing performed by : [address], [address] Hct 37.1 35.6 - 45.5 % MARCELINO Comment:Testing performed by : [address] [address] Plt 332 150 - 400 K/cumm MARCELINO Comment:Testing performed by : [address], [address] MPV 10.1 9.1 - 12.3 fL MARCELINO Comment:Testing performed by : [address] [address] RBC 4.27 3.90 - 5.20 M/cumm MARCELINO Comment:Testing performed by : [address] [address] MCV 86.9 81.3 - 96.4 fL MARCELINO Comment:Testing performed by : [address] [address] MCH 26.5(L) 27.1 - 33.3 pg MARCELINO Comment:Testing performed by : [address] [address] MCHC 30.5(L) 32.3 - 35.7 g/dL MARCELINO Comment:Testing performed by : [address] [address] RDW CV 17.1(H) 11.1 - 14.9 % MARCELINO Comment:Testing performed by : [address] [address] RDW SD 54.7(H) 35.7 - 48.1 fL MARCELINO Comment:Testing performed by : [address] [address] NRBC abs 0.00 0.00 - 0.01 K/cumm MARCELINO HAYWOOD Comment:Testing performed by : [address] [address] Blood 11/03/2024 2:21 AM FAMILY SUPPORT WORKER 11/03/2024 3:01 AM FAMILY SUPPORT WORKER Ananya MEANS LAB BLOOD ORDERABLES Final Re sult Performing Organization Address [facility] de Phone Number MARCELINO [address] [place] [address] * aPTT (11/03/2024 2:21 AM FAMILY SUPPORT WORKER) aPTT 32 22 - 37 sec Comment: Interpretive data aPTT test has not been evaluated for monitoring heparin therapy. The anti-Xa is the preferred test. Current interpretive data was last revised on 2019. Testing performed by: [address] [address] Blood 11/03/2024 2:21 AM FAMILY SUPPORT WORKER 11/03/2024 2:57 AM FAMILY SUPPORT WORKER Satinder Dougherty MD LAB BLOOD ORDERABLES Fi nal Result Performing Organization Address [facility] Co de Phone Number ORLIN[address] [employer] [address] * (ABNORMAL) Lipid panel (11/03/2024 2:21 AM FAMILY SUPPORT WORKER) Cholesterol 148 30 - 199 mg/dL Comment: [...] last revised on 2018. Testing performed by: [address] [address] Triglycerides 150(H) <=149 mg/dL MARCELINO Comment: Interpretive [...] last revised on 2018. Testing performed by: [address] [address] HDL 34(L) >=40 mg/dL MARCELINO Comment: Interpretive [...] last revised on 2018. Testing performed by: [address] [address] LDL, calculated 88 <=129 mg/dL MARCELINO Comment: [...] NCEP Expert Panel. Circulation 2004;110:227 3. Jessee Nava et al. JAQUELINE Cardiol. 2020 December 28;5(5):540-548. doi: 10.1001/jamacardio.2020.0013 Current Interpretive Data was last revised on 2024. Testing performed by: [address] [address] Non-HDL Cholesterol 114 mg/dL MARCELINO HAYWOOD Comment: [...] last revised on 2018. Testing performed by: [address] [address] Chol/HDL ratio 4 MARCELINO Comment:Testing performed by : [address] [address] Blood 11/03/2024 2:21 AM FAMILY SUPPORT WORKER 11/03/2024 2:57 AM FAMILY SUPPORT WORKER us Ananya MEANS LAB BLOOD ORDERABLES Final Re sult MARCELINO CHASTITY [address] [facility] Department [place] [address] * POCT glucose (11/03/2024 12:21 AM FAMILY SUPPORT WORKER) Glucose, POC 143 70 - 199 mg/dL Comment:Testing performed by : [facility], [address] [place] [address]., [address] Glucose comment 1 Use This Result MARCELINO HAYWOOD Comment:Testing performed by : [address] [address] Glucose comment 2 RN/MD Notified MARCELINO Comment:Testing performed by : [address] [address] Blood 11/03/2024 12:2 1 AM FAMILY SUPPORT WORKER 11/03/2024 12:21 AM FAMILY SUPPORT WORKER Satinder Dougherty MD LAB POCT ORDERABLES - D EVICE Final Result Performing Organization Address [facility] Co de Phone Number MARCELINO [address] [place] [address] * POCT glucose (11/02/2024 8:31 PM FAMILY SUPPORT WORKER) [facility] Glucose, POC 156 70 - 199 mg/dL Comment:Testing performed by : [facility], [address] [place] [address]., [address] Glucose comment 1 Use This Result MARCELINO Comment:Testing performed by : [address] [address] Glucose comment 2 RN/MD Notified MARCELINO Comment:Testing performed by : [address] [address] Blood 11/02/2024 8:31 PM FAMILY SUPPORT WORKER 11/02/2024 8:31 PM FAMILY SUPPORT WORKER Satinder Dougherty MD LAB POCT ORDERABLES - D EVICE Final Result ORLIN[address] [place] [address] * CT Chest Abdomen Pelvis W Contrast (11/02/2024 8:01 PM FAMILY SUPPORT WORKER) Anatomical Region Laterality Modality Body N/A Computed Tomogra phy 11/02/2024 10:4 0 PM FAMILY SUPPORT WORKER Narrative 11/02/2024 10:59 PM FAMILY SUPPORT WORKER EXAM DESCRIPTION: CT CHEST ABDOMEN PELVIS W [...] Iliana Hannah M.D. SN: SN Report ID: [id number] Reading Location: [id number] Procedure Note Iliana Hannah MD - 11/02/2024 [...] Iliana Hannah M.D. SN: SN Report ID: [id number] Reading Location: [place] [address] us Anayna MEANS IMG CT PROCEDURES Final Resul t * (ABNORMAL) Troponin T high-sensitivity 6-hour (11/02/2024 7:24 PM FAMILY SUPPORT WORKER) Trop T hs 214(C) <=14 ng/L Comment: Critical Result called to and read back by [email or web address], DATE: 2024-11-02 19:53:11 BY: [email or web address] Interpretive Data For further hscTnT resources including the diagnostic algorithm and an aid in interpretation, copy and paste this link: https://nrl.testcatalog.org/show/hsTrop Current Interpretive Data last revised 2020. Testing performed by: [address] [address] Trop T hs pct delta 35(C) % MARCELINO Comment: Critical Result called to and read back by [email or web address], DATE: 2024-11-02 19:53:11 BY: [id number] Testing performed by: [address] [address] Trop T hs interp Significa nt(C) MARCELINO Comment: Critical Result called to and read back by [email or web address], DATE: 2024-11-02 19:53:11 BY: [email or web address] Testing performed by: [address] [address] Blood 11/02/2024 7:24 PM FAMILY SUPPORT WORKER 11/02/2024 7:29 PM FAMILY SUPPORT WORKER Narrative MARCELINO HAYWOOD - 11/02/2024 7:53 PM FAMILY SUPPORT WORKER Critical result called to and read back by [email or web address]_ (_) on 11/02/2024 19:52:06 CST_ to [id number] us Gee Slowik DO LAB BLOOD ORDERABLES Final Res ult OR[address] [place] [address] * POCT glucose (11/02/2024 6:48 PM FAMILY SUPPORT WORKER) Glucose, POC 138 70 - 199 mg/dL Comment:Testing performed by : [facility], [address] [place] [address]., [address] Blood 11/02/2024 6:48 PM FAMILY SUPPORT WORKER 11/02/2024 6:48 PM FAMILY SUPPORT WORKER Satinder Dougherty MD LAB POCT ORDERABLES - D EVICE Final Result Performing Organization Address [facility]/ZIP Co de Phone Number ORLIN[address] [address] * Blood culture Blood (11/02/2024 5:54 PM FAMILY SUPPORT WORKER) Pathologist [facility] Report Final Report: No growth Comment:Testing performed by : [facility], [address] [facility] [address] [facility], [place]., [address] Blood 11/02/2024 5:54 PM FAMILY SUPPORT WORKER 11/02/2024 10:13 PM FAMILY SUPPORT WORKER Narrative [facility] - 11/07/2024 7:00 AM CDT From a [...] performance characteristics have been verified by the [facility] Microbiology Laboratory. For questions about this culture, contact the Microbiology Laboratory at [phone]. Interpretive data was last revised on 24. Ananya MEANS LAB MICROBIOLOGY - GENERAL OR DERABLES Final Result MARCELINO [address] [facility] Department [place] [address] * Blood culture Blood (11/02/2024 5:54 PM FAMILY SUPPORT WORKER) Report Final Report: No growth Comment:Testing performed by : [facility], [address] [facility] [place]., [address] Blood 11/02/2024 5:54 PM FAMILY SUPPORT WORKER 11/02/2024 10:13 PM FAMILY SUPPORT WORKER Narrative MARCELINO - 11/07/2024 7:00 AM CDT Collection->Peripheral 1. [...] performance characteristics have been verified by the [facility] Microbiology Laboratory. For questions about this culture, contact the Microbiology Laboratory at [phone]. Interpretive data was last revised on 24. Ananya MEANS LAB MICROBIOLOGY - GENERAL OR DERABLES Final Result Performing Organization Address [facility] Co de Phone Number MARCELINO [address] [address] * aPTT (11/02/2024 5:54 PM FAMILY SUPPORT WORKER) aPTT 28 22 - 37 sec Comment: Interpretive data aPTT test has not been evaluated for monitoring heparin therapy. The anti-Xa is the preferred test. Current interpretive data was last revised on 2019. Testing performed by: [address] [address] Blood 11/02/2024 5:54 PM FAMILY SUPPORT WORKER 11/02/2024 5:56 PM FAMILY SUPPORT WORKER Narrative [facility] 11/02/2024 6:08 PM FAMILY SUPPORT WORKER Baseline prior to heparin initiation Ananya MEANS LAB BLOOD ORDERABLES Final Re sult Performing Organization Address [facility] Co de Phone Number MARCELINO [address] [address] * (ABNORMAL) Protime-INR (11/02/2024 5:54 PM FAMILY SUPPORT WORKER) PT 15.3(H) 12.0 - 14.6 sec Comment: Ref Range High Testing performed by: [address] [address] INR 1.2 0.9 - 1.2 MARCELINO Comment: Ref Range High Interpretive data Oral anticoagulant therapeutic ranges: Venous thromboembolism prophylaxis or treatment: 2.0-3.0 CARDIOLOGY Standard range: 2.0-3.0 High-intensity range: 2.5-3.5 Refer to indication-specific guidelines for appropriate target ranges for prosthetic heart valve replacement. Current interpretive data was last revised on 2019. Testing performed by: [address] [address] Blood 11/02/2024 5:54 PM FAMILY SUPPORT WORKER 11/02/2024 5:56 PM FAMILY SUPPORT WORKER Narrative MARCELINO - 11/02/2024 6:07 PM FAMILY SUPPORT WORKER Baseline prior to heparin initiation us Ananya MEANS LAB BLOOD ORDERABLES Final Re sult MARCELINO [address] [facility] Department [place] [address] * (ABNORMAL) CBC without differential (11/02/2024 5:54 PM FAMILY SUPPORT WORKER) Pathologist [facility] WBC 8.0 3.8 - 9.9 K/cumm Comment:Testing performed by : [address] [address] Hgb 11.4(L) 11.9 - 15.5 g/dL MARCELINO Comment:Testing performed by : [address] [address] Hct 37.2 35.6 - 45.5 % MARCELINO Comment:Testing performed by : [address] [address] Plt 376 150 - 400 K/cumm MARCELINO Comment:Testing performed by : [address] [address] MPV 10.1 9.1 - 12.3 fL MARCELINO Comment:Testing performed by : [address] [address] RBC 4.25 3.90 - 5.20 M/cumm MARCELINO Comment:Testing performed by : [address] [address] MCV 87.5 81.3 - 96.4 fL MARCELINO Comment:Testing performed by : [address] [address] MCH 26.8(L) 27.1 - 33.3 pg MARCELINO Comment:Testing performed by : [address] [address] MCHC 30.6(L) 32.3 - 35.7 g/dL MARCELINO Comment:Testing performed by : [address] [address] RDW CV 17.1(H) 11.1 - 14.9 % MARCELINO Comment:Testing performed by : [address] [address] RDW SD 54.8(H) 35.7 - 48.1 fL MARCELINO Comment:Testing performed by : [address] [address] NRBC abs 0.00 0.00 - 0.01 K/cumm MARCELINO Comment:Testing performed by : [address], [address] Blood 11/02/2024 5:54 PM FAMILY SUPPORT WORKER 11/02/2024 5:56 PM FAMILY SUPPORT WORKER Narrative MARCELINO - 11/02/2024 5:59 PM FAMILY SUPPORT WORKER Baseline prior to heparin initiation Ananya MEANS LAB BLOOD ORDERABLES Final Re sult Performing Organization Address City/[facility] Co de Phone Number [address] [place] [address] * Magnesium (11/02/2024 5:54 PM FAMILY SUPPORT WORKER) [facility] Magnesium 1.5 1.4 - 2.5 mg/dL Comment:Testing performed by : [address], [address] Blood 11/02/2024 5:54 PM FAMILY SUPPORT WORKER 11/02/2024 5:56 PM FAMILY SUPPORT WORKER Ananya MEANS LAB BLOOD ORDERABLES Final Re sult Performing Organization Address City/[facility]/ZIP Co de Phone Number [address] [address] * (ABNORMAL) Troponin T high-sensitivity 4-hour (11/02/2024 4:15 PM FAMILY SUPPORT WORKER) [facility] Trop T hs 204(C) <=14 ng/L Comment: Critical Result called to and read back by [email or web address], DATE: 2024-11-02 16:40:50 BY: Interpretive Data For further hscTnT resources including the diagnostic algorithm and an aid in interpretation, copy and paste this link: https://nrl.testcatalog.org/show/hsTrop Current Interpretive Data last revised 2020. Testing performed by: [address] [address] Trop T hs pct delta 29(C) % MARCELINO Comment: Critical Result called to and read back by [email or web address], DATE: 2024-11-02 16:40:50 BY: Testing performed by: [address] [address] Trop T hs interp Significa nt(C) MARCELINO Comment: Critical Result called to and read back by [email or web address], DATE: 2024-11-02 16:40:50 BY: Testing performed by: [address] [address] Blood 11/02/2024 4:15 PM FAMILY SUPPORT WORKER 11/02/2024 4:17 PM FAMILY SUPPORT WORKER Narrative MARCELINO - 11/02/2024 4:40 PM FAMILY SUPPORT WORKER Critical result called to and read back by [email or web address] (_) on 11/02/2024 16:40:30 CST_ to [id number]_. Gee [employer] DO LAB BLOOD ORDERABLES Final Res ult Performing Organization Address [facility]/ZIP Co de Phone Number [facility] [address] [facility] Department [place] [address] * Sepsis Lactate w/ Reflex (11/02/2024 3:15 PM FAMILY SUPPORT WORKER) Sepsis Lactate 1.1 0.7 - 2.0 mmol/L Comment:Testing performed by : [address] [address] Blood 11/02/2024 3:15 PM FAMILY SUPPORT WORKER 11/02/2024 3:19 PM FAMILY SUPPORT WORKER [email or web address] DO LAB BLOOD ORDERABLES Final Res ult Performing Organization Address [facility]/ZIP Co de Phone Number MARCELINO HAYWOOD [facility] Department [place] [address] * (ABNORMAL) Troponin T high-sensitivity 2-hour (11/02/2024 3:02 PM FAMILY SUPPORT WORKER) Trop T hs 198(H) <=14 ng/L Comment: Interpretive Data For further hscTnT resources including the diagnostic algorithm and an aid in interpretation, copy and paste this link: https://nrl.testcatalog.org/show/hsTrop Current Interpretive Data last revised 2020. Testing performed by: [facility], [address] [place] [address]., [address] Trop T hs pct delta 25(C) % MARCELINO Comment: Critical Result called to and read back by [email or web address], DATE: 2024-11-02 15:30:54 BY: Testing performed by: [facility], [address] [place] [address]., [address] Trop T hs interp Significa nt(C) MARCELINO Comment: Critical Result called to and read back by [email or web address], DATE: 2024-11-02 15:30:54 BY: Testing performed by: [facility], [address] [place] [address]., [address] Blood 11/02/2024 3:02 PM FAMILY SUPPORT WORKER 11/02/2024 3:05 PM FAMILY SUPPORT WORKER Narrative MARCELINO - 11/02/2024 3:31 PM FAMILY SUPPORT WORKER Critical result called to and read back by _[email or web address] (_) on 11/02/2024 15:30:00 CST_ to [id number]_. us Gee Yao DO LAB BLOOD ORDERABLES Final Res ult MARCELINO [address] [facility] [place] [address] * CT Head WO Contrast (11/02/2024 2:16 PM FAMILY SUPPORT WORKER) Anatomical Region Laterality Modality Head and Neck N/A Computed Tomogra phy 11/02/2024 2:33 PM FAMILY SUPPORT WORKER Narrative 11/02/2024 2:35 PM FAMILY SUPPORT WORKER EXAM DESCRIPTION: CT HEAD WO CONTRAST REASON [...] Francisco Campbell M.D. AR: VILMA Report ID: [id number] Reading Location: [place] [address] Procedure Note Juan Francisco Campbell MD - [...] Francisco Campbell M.D. AR: AR Report ID: [id number] Reading Location: [place] [address] Gee Yao DO IMG CT PROCEDURES Final Result * Influenza A/B, RSV, and COVID-19 PCR Nasopharyngeal (11/02/2024 1:59 PM FAMILY SUPPORT WORKER) Pathologist [facility] COVID-19 RNA Negative Negative Comment:Testing performed by : [address] [address] Influenza A RNA Negative Negative [facility] Comment:Testing performed by : [address] [address] Influenza B RNA Negative Negative [facility] Comment:Testing performed by : [address] [address] RSV RNA Negative Negative [facility] Comment: Interpretive data: Testing performed by [facility]. This test is performed using the [employer] Xpert Xpress CoV-2/Flu/RSV plus assay. This is a multiplex, real-time reverse transcriptase PCR assay intended for the qualitative detection of nucleic acid from SARS-CoV-2, influenza A, influenza B, and respiratory syncytial virus. This assay has been cleared by the [place] Food and Drug administration. The performance characteristics have been verified by the [facility]. Results must be considered in the clinical context, and a negative result does not rule out infection. Interpretive Data last revised 2023 Testing performed by: [address] [address] Nasopharyngeal 11/02/2024 1: 59 PM FAMILY SUPPORT WORKER 11/02/2024 2:08 PM FAMILY SUPPORT WORKER Narrative MARCELINO HAYWOOD - 11/02/2024 2:48 PM FAMILY SUPPORT WORKER Is the Patient experiencing symptoms consistent with COVID?->Yes Gee Yao DO LAB MICROBIOLOGY - GENERAL ORD ERABLES Final Result MARCELINO HAYWOOD [address] [facility] Department [place] [address] * XR Chest 1 View (11/02/2024 1:38 PM FAMILY SUPPORT WORKER) Anatomical Region Laterality Modality Body, Chest N/A Computed Radiogr aphy 11/02/2024 2:05 PM FAMILY SUPPORT WORKER Narrative 11/02/2024 2:06 PM FAMILY SUPPORT WORKER EXAM DESCRIPTION: XR CHEST 1 VIEW REASON [...] Layla Ballard D.O. PS: PS Report ID: [id number] Reading Location: [id number] Procedure Note Layla Ballard DO - 11/02/2024 [...] Layla Ballard D.O. PS: PS Report ID: [id number] Reading Location: [place] [address] Gee Yao DO IMG XR PROCEDURES Final Result * ECG 12 lead (11/02/2024 1:19 PM FAMILY SUPPORT WORKER) Ventricular Rate EKG/Min 95 BPM [facility] Atrial Rate 95 BPM [facility] [place]-Interval (MSEC) 162 ms [facility] QRS-Interval (MSEC) 98 ms [facility] QT-Interval (MSEC) 432 ms [facility] QTc 542 ms [facility] P [place] 17 degrees [facility] R [place] -19 degrees [facility] T [place] 106 degrees [facility] Diagnosis Normal sinus rhythm Minimal voltage criteria for LVH, may be normal variant 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 ([id number]) on 11/02/2024 5:01:19 PM [facility] 11/02/2024 1:19 PM FAMILY SUPPORT WORKER 11/02/2024 5:01 PM FAMILY SUPPORT WORKER Gee Yao DO ECG ORDERABLES Final Result [facility] * (ABNORMAL) Urinalysis reflex to microscopic and culture Urine (11/02/2024 12:51 PM FAMILY SUPPORT WORKER) Color, ur Yellow Yellow Comment:Testing performed by : [facility], [address] [place] [address]., [address] Clarity, ur Clear Clear MARCELINO HAYWOOD Comment:Testing performed by : [address] [address] Specific gravity, ur 1.024 1.003 - 1.030 MARCELINO Comment:Testing performed by : [address] [address] pH, urine 5.5 MARCELINO Comment: Interpretive Data U rine pH is affected by diet, medications, systemic acid-base disturbances, and renal tubular function. pH may affect urinary stone formation. For example, urine pH below 6.0 may help reduce the tendency for calcium phosphate stones and pH greater than 6.0 may reduce the tendency for uric acid stone formation. Source: [facility] [place] Current Interpretive Data was last revised on 2017 Testing performed by: [address] [address] Protein, ur ql 1+(A) Negative MARCELINO Comment:Testing performed by : [address] [address] Glucose, ur ql Negative Negative MARCELINO Comment:Testing performed by : [address] [address] Ketones, ur Trace(A) Negative MARCELINO Comment:Testing performed by : [address] [address] Bilirubin, ur Negative Negative MARCELINO Comment:Testing performed by : [address] [address] Blood, ur 3+(A) Negative MARCEILNO Comment:Testing performed by : [address] [address] Urobilinogen, ur <2.0 <2.0 mg/dL MARCELINO Comment:Testing performed by : [address] [address] Nitrite, ur Positive(A) Negative MARCELINO Comment:Testing performed by : [address] [address] Leukocyte esterase, ur Negative Negative MARCELINO Comment:Testing performed by : [address] [address] UA reflex comment Reflex to microscopic UA will be performed. MARCELINO Comment:Testing performed by : [address] [address] Urine 11/02/2024 12:5 1 PM FAMILY SUPPORT WORKER 11/02/2024 12:59 PM FAMILY SUPPORT WORKER Gee Yao DO LAB MICROBIOLOGY - GENERAL ORD ERABLES Final Result Performing Organization Address [facility] de Phone Number MARCELINO [address] [place] [address] * (ABNORMAL) Urinalysis, microscopic only (11/02/2024 12:51 PM FAMILY SUPPORT WORKER) WBC, ur 0-5 0 - 5 /HPF Comment:Testing performed by : [address] [address] RBC, ur 6-10(A) 0 - 2 /HPF MARCELINO Comment:Testing performed by : [address] [address] Epithelial cells, squamous, ur >50(A) 0 - 5 /HPF MARCELINO Comment:Testing performed by : [address] [address] Bacteria, ur 3+(A) MARCELINO Comment:Testing performed by : [address] [address] Mucous, ur Present(A) MARCELINO Comment:Testing performed by : [address] [address] Culture Reflex Comment Reflex conditions for urine culture (WBC >10) not met. MARCELINO Comment:Testing performed by : [address] [address] Urine 11/02/2024 12:5 1 PM FAMILY SUPPORT WORKER 11/02/2024 12:59 PM FAMILY SUPPORT WORKER Gee Yao DO LAB URINE ORDERABLES Final Res ult Performing Organization Address [facility]/ZIP Co de Phone Number MARCELINO [address] [employer] [address] * Urine culture Urine, bladder (11/02/2024 12:51 PM FAMILY SUPPORT WORKER) Report Final Report: Less than 100,000 colonies/mL (clinically insignificant growth based on current clinical standards) Comment:Testing performed by : [facility], [address] [place]., [address] Organism (CLINICALLY INSIGNIFICANT GROWTH [facility] Urine, bladder 11/02/2024 12 :51 PM FAMILY SUPPORT WORKER 11/03/2024 4:59 PM FAMILY SUPPORT WORKER [facility]ative [facility] 11/04/2024 5:58 PM FAMILY SUPPORT WORKER Indications for Culture:->Recent positive UA Testing performed by [facility] Microbiology Laboratory ([phone]) Satinder Dougherty MD LAB MICROBIOLOGY - GENE RAL ORDERABLES Final Result Performing Organization Address [facility] Co de Phone Number [address] [place] [address] * (ABNORMAL) Troponin T high-sensitivity series (baseline, 2hr, 4hr, 6hr) (11/02/2024 12:39 PM FAMILY SUPPORT WORKER) Trop T hs 158(H) <=14 ng/L Comment: Interpretive Data For further hscTnT resources including the diagnostic algorithm and an aid in interpretation, copy and paste this link: https://nrl.testcatalog.org/show/hsTrop Current Interpretive Data last revised 2020. Testing performed by: [facility], [address] [place] [address]., [address] Blood 11/02/2024 12:3 9 PM FAMILY SUPPORT WORKER 11/02/2024 12:59 PM FAMILY SUPPORT WORKER us Gee Yao DO LAB BLOOD ORDERABLES Final Res ult Performing Organization Address City/[facility]/ZIP Co de Phone Number [address] [place], [place] [id number] * Troponin T high-sensitivity (11/02/2024 12:39 PM FAMILY SUPPORT WORKER) Trop T hs See Comment <=14 ng/L Comment: Improper test ordered. See result for BERNARD Baseline. Interpretive Data For further hscTnT resources including the diagnostic algorithm and an aid in interpretation, copy and paste this link: https://nrl.testcatalog.org/show/hsTrop Current Interpretive Data last revised 2020. Testing performed by: [address] [address] Blood 11/02/2024 12:3 9 PM FAMILY SUPPORT WORKER 11/02/2024 12:59 PM FAMILY SUPPORT WORKER [employer] DO LAB BLOOD ORDERABLES Edited Re sult - Final Performing Organization Address [facility]/ZIP Co de Phone Number MARCELINO [address] [place] [address] * (ABNORMAL) Sepsis Lactate w/ Reflex (11/02/2024 12:39 PM FAMILY SUPPORT WORKER) Pathologist [facility] Sepsis Lactate 2.1(H) 0.7 - 2.0 mmol/L Comment:Testing performed by : [address] [address] Blood 11/02/2024 12:3 9 PM FAMILY SUPPORT WORKER 11/02/2024 12:59 PM FAMILY SUPPORT WORKER [employer] DO LAB BLOOD ORDERABLES Final Res ult Performing Organization Address [facility] Co de Phone Number MARCELINO [address] [place], [place] [address] * (ABNORMAL) eGFR (11/02/2024 12:39 PM FAMILY SUPPORT WORKER) eGFR 50(L) >=60 mL/min/1. 73 m2 Comment: [...] was last reviewed 2021. Testing performed by: [address] [address] Blood 11/02/2024 12:3 9 PM FAMILY SUPPORT WORKER 11/02/2024 12:59 PM FAMILY SUPPORT WORKER us Gee Yao DO LAB BLOOD ORDERABLES Final Res ult MARCELINO [facility] Department of Laboratories [place], [place] [id number] * (ABNORMAL) Differential, auto (11/02/2024 12:39 PM FAMILY SUPPORT WORKER) Neutrophil abs 6.7(H) 1.5 - 6.5 K/cumm Comment:Testing performed by : [address] [address] Imm gran abs 0.1 0.0 - 0.1 K/cumm MARCELINO Comment:Testing performed by : [address] [address] Lymphocyte abs 2.0 0.8 - 3.3 K/cumm MARCELINO Comment:Testing performed by : [address] [address] Monocyte abs 1.0(H) 0.2 - 0.8 K/cumm MARCELINO Comment:Testing performed by : [address] [address] Eosinophil abs 0.3 0.0 - 0.5 K/cumm MARCELINO Comment:Testing performed by : [address] [address] Basophil abs 0.1 0.0 - 0.1 K/cumm MARCELINO Comment:Testing performed by : [address] [address] Neutrophil pct 66.5 % MARCELINO Comment: Interpretive Data Percent cell count reference ranges are not reported, since discordance with absolute values may lead to misinterpretation of CBC data. Current Interpretive Data was last revised on 2017. Testing performed by: [address] [address] Imm gran pct 0.9 % MARCELINO Comment: Interpretive Data Percent cell count reference ranges are not reported, since discordance with absolute values may lead to misinterpretation of CBC data. Current Interpretive Data was last revised on 2017. Testing performed by: [address] [address] Lymphocyte pct 19.7 % MARCELINO Comment: Interpretive Data Percent cell count reference ranges are not reported, since discordance with absolute values may lead to misinterpretation of CBC data. Current Interpretive Data was last revised on 2017. Testing performed by: [address] [address] Monocyte pct 9.5 % MARCELINO Comment: Interpretive Data Percent cell count reference ranges are not reported, since discordance with absolute values may lead to misinterpretation of CBC data. Current Interpretive Data was last revised on 2017. Testing performed by: [address] [address] Eosinophil pct 2.9 % MARCELINO Comment: Interpretive Data Percent cell count reference ranges are not reported, since discordance with absolute values may lead to misinterpretation of CBC data. Current Interpretive Data was last revised on 2017. Testing performed by: [address] [address] Basophil pct 0.5 % MARCELINO Comment: Interpretive Data Percent cell count reference ranges are not reported, since discordance with absolute values may lead to misinterpretation of CBC data. Current Interpretive Data was last revised on 2017. Testing performed by: [address] [address] Blood 11/02/2024 12:3 9 PM FAMILY SUPPORT WORKER 11/02/2024 12:59 PM FAMILY SUPPORT WORKER us Gee Yao DO LAB BLOOD ORDERABLES Final Res ult MARCELINO [address] [facility] Department [place] [address] * (ABNORMAL) CBC with auto differential (11/02/2024 12:39 PM FAMILY SUPPORT WORKER) WBC 10.1(H) 3.8 - 9.9 K/cumm Comment:Testing performed by : [address] [address] Hgb 12.9 11.9 - 15.5 g/dL MARCELINO Comment:Testing performed by : [address] [address] Hct 42.9 35.6 - 45.5 % MARCELINO Comment:Testing performed by : [address] [address] Plt 437(H) 150 - 400 K/cumm MARCELINO Comment:Testing performed by : [address] [address] MPV 10.1 9.1 - 12.3 fL MARCELINO Comment:Testing performed by : [address] [address] RBC 4.87 3.90 - 5.20 M/cumm MARCELINO Comment:Testing performed by : [address] [address] MCV 88.1 81.3 - 96.4 fL MARCELINO Comment:Testing performed by : [address] [address] MCH 26.5(L) 27.1 - 33.3 pg MARCELINO HAYWOOD Comment:Testing performed by : [address] [address] MCHC 30.1(L) 32.3 - 35.7 g/dL MARCELINO Comment:Testing performed by : [address] [address] RDW CV 17.3(H) 11.1 - 14.9 % MARCELINO Comment:Testing performed by : [address] [address] RDW SD 56.2(H) 35.7 - 48.1 fL MARCELINO HAYWOOD Comment:Testing performed by : [address] [address] NRBC abs 0.00 0.00 - 0.01 K/cumm MARCELINO Comment:Testing performed by : [address] [address] Blood 11/02/2024 12:3 9 PM FAMILY SUPPORT WORKER 11/02/2024 12:59 PM FAMILY SUPPORT WORKER us Gee Yao DO LAB BLOOD ORDERABLES Final Res ult Performing Organization Address [facility] Co de Phone Number [address] [place] [address] * Erythrocyte sedimentation rate (11/02/2024 12:39 PM FAMILY SUPPORT WORKER) Pathologist [facility] Erythrocyte sedimentation rate 30 1 - 30 mm/hr Comment:Testing performed by : [address], [address] Blood 11/02/2024 12:3 9 PM FAMILY SUPPORT WORKER 11/02/2024 12:59 PM FAMILY SUPPORT WORKER [employer] Gee Yao DO LAB BLOOD ORDERABLES Final Res ult Performing Organization Address [facility] Co de Phone Number [address] [address] * (ABNORMAL) CRP (acute phase) (11/02/2024 12:39 PM FAMILY SUPPORT WORKER) CRP 19.6(H) <=10.0 mg/L Comment:Testing performed by : [address] [address] Blood 11/02/2024 12:3 9 PM FAMILY SUPPORT WORKER 11/02/2024 12:59 PM FAMILY SUPPORT WORKER [employer] Gee Deonrebecca DO LAB BLOOD ORDERABLES Final Res ult MARCELINO [address] [facility] Department [place] [address] * (ABNORMAL) Comprehensive metabolic panel (11/02/2024 12:39 PM FAMILY SUPPORT WORKER) Sodium 141 135 - 145 mmol/L Comment:Testing performed by : [address] [address] Potassium, pl 3.4 3.3 - 4.9 mmol/L MARCELINO Comment:Testing performed by : [address] [address] Chloride 99 97 - 110 mmol/L MARCELINO Comment:Testing performed by : [address] [address] CO2 30 22 - 32 mmol/L MARCELINO Comment:Testing performed by : [address] [address] Anion gap 12 2 - 15 mmol/L MARCELINO Comment:Testing performed by : [address] [address] BUN 18 6 - 25 mg/dL MARCELINO Comment:Testing performed by : [address] [address] Creatinine 1.10 0.60 - 1.10 mg/dL MARCELINO Comment:Testing performed by : [address] [address] Glucose 157 70 - 199 mg/dL MARCELINO [...] was last revised 2022. Testing performed by: [address] [address] Calcium 10.6(H) 8.5 - 10.3 mg/dL MARCELINO Comment:Testing performed by : [address] [address] Bilirubin, total 0.3 0.1 - 1.2 mg/dL MARCELINO Comment:Testing performed by : [address] [address] Protein, pl 6.7 6.5 - 8.5 g/dL MARCELINO Comment:Testing performed by : [address] [address] Albumin 3.7 3.5 - 5.0 g/dL MARCELINO Comment:Testing performed by : [address] [address] Alk phos 107 40 - 130 Units/L MARCELINO Comment:Testing performed by : [address] [address] ALT 15 7 - 45 Units/L MARCELINO Comment:Testing performed by : [address], [address] AST 26 10 - 45 Units/L MARCELINO Comment:Testing performed by : [address] [address] Blood 11/02/2024 12:3 9 PM FAMILY SUPPORT WORKER 11/02/2024 12:59 PM FAMILY SUPPORT WORKER Gee Yao DO LAB BLOOD ORDERABLES Final Res ult [facility] [address] [facility] Department [place] [address] * COVID-19 Coronavirus RNA Nasopharyngeal (10/17/2024 10:20 AM FAMILY SUPPORT WORKER) COVID-19 RNA Negative Negative Comment:Testing performed by : [address] [address] Nasopharyngeal 10/17/2024 10 :20 AM FAMILY SUPPORT WORKER 10/17/2024 10:49 AM FAMILY SUPPORT WORKER Narrative MARCELINO - 10/17/2024 11:24 AM FAMILY SUPPORT WORKER Is the patient experiencing any symptoms consistent with COVID (eg. Fever, cough, shortness of breath)?->No What is the reason for testing?->Screening for post-acute care placement Interpretive data Testing performed by [facility]. This test is performed using the [employer] Xpert Xpress CoV-2 plus assay. This is a real-time RT-PCR test intended for the qualitative detection of nucleic acid from the SARS-CoV-2. This assay has been cleared by the [place] Food and Drug administration. The performance characteristics have been verified by the [facility]. Results must be considered in the clinical context, and a negative result does not rule out infection. Interpretive data last revised 2024. Nahid Kim MD LAB MICROBIOLOGY - GENERA L ORDERABLES Final Result Performing Organization Address [facility] Co de Phone Number [address] [address] * POCT glucose (10/17/2024 8:41 AM FAMILY SUPPORT WORKER) Glucose, POC 123 70 - 199 mg/dL Comment:Testing performed by : [address] [address] Blood 10/17/2024 8:41 AM FAMILY SUPPORT WORKER 10/17/2024 8:41 AM FAMILY SUPPORT WORKER Nahid Kim MD LAB POCT ORDERABLES - DEV ICE Final Result Performing Organization Address City/[facility] Co de Phone Number [address] [address] * POCT glucose (10/16/2024 8:09 PM FAMILY SUPPORT WORKER) Glucose, POC 145 70 - 199 mg/dL Comment:Testing performed by : [address] [address] Blood 10/16/2024 8:09 PM FAMILY SUPPORT WORKER 10/16/2024 8:09 PM FAMILY SUPPORT WORKER Conor Ventura MD LAB POCT ORDERABLE S - DEVICE Final Result Performing Organization Address [facility] Center/[facility] Co de Phone Number [address] [address] * POCT glucose (10/16/2024 4:18 PM FAMILY SUPPORT WORKER) Glucose, POC 126 70 - 199 mg/dL Comment:Testing performed by : [address] [address] Blood 10/16/2024 4:18 PM FAMILY SUPPORT WORKER 10/16/2024 4:18 PM FAMILY SUPPORT WORKER Conor Ventura MD LAB POCT ORDERABLE S - DEVICE Final Result Performing Organization Address [facility] de Phone Number OR[address] [address] * POCT glucose (10/16/2024 11:37 AM FAMILY SUPPORT WORKER) Glucose, POC 132 70 - 199 mg/dL Comment:Testing performed by : [address] [address] Blood 10/16/2024 11:3 7 AM FAMILY SUPPORT WORKER 10/16/2024 11:37 AM FAMILY SUPPORT WORKER Conor Ventura MD LAB POCT ORDERABLE S - DEVICE Final Result Performing Organization Address [facility] Co de Phone Number ORLIN[address] [address] * POCT glucose (10/16/2024 8:58 AM FAMILY SUPPORT WORKER) Glucose, POC 140 70 - 199 mg/dL Comment:Testing performed by : [address] [address] Glucose comment 1 Use This Result MARCELINO Comment:Testing performed by : [address] [address] Blood 10/16/2024 8:58 AM FAMILY SUPPORT WORKER 10/16/2024 8:58 AM FAMILY SUPPORT WORKER Conor Ventura MD LAB POCT ORDERABLE S - DEVICE Final Result Performing Organization Address [facility] de Phone Number [place] [address] [place] [address] * POCT glucose (10/15/2024 9:04 PM FAMILY SUPPORT WORKER) Glucose, POC 133 70 - 199 mg/dL Comment:Testing performed by : [address] [address] Glucose comment 1 Use This Result MARCELINO Comment:Testing performed by : [address] [address] Glucose comment 2 RN/MD Notified MARCELINO Comment:Testing performed by : [address] [address] Blood 10/15/2024 9:04 PM FAMILY SUPPORT WORKER 10/15/2024 9:04 PM FAMILY SUPPORT WORKER Conor Ventura MD LAB POCT ORDERABLE S - DEVICE Final Result Performing Organization Address [facility] de Phone Number [address] [address] * POCT glucose (10/15/2024 4:04 PM FAMILY SUPPORT WORKER) Glucose, POC 158 70 - 199 mg/dL Comment:Testing performed by : [address] [address] Glucose comment 1 Use This Result MARCELINO Comment:Testing performed by : [address] [address] Glucose comment 2 RN/MD Notified MARCELINO Comment:Testing performed by : [address] [address] Blood 10/15/2024 4:04 PM FAMILY SUPPORT WORKER 10/15/2024 4:04 PM FAMILY SUPPORT WORKER Conor Ventura MD LAB POCT ORDERABLE S - DEVICE Final Result Performing Organization Address [facility] de Phone Number MARCELINO [address] [facility] [place] [address] * POCT glucose (10/15/2024 1:17 PM FAMILY SUPPORT WORKER) Glucose, POC 161 70 - 199 mg/dL Comment:Testing performed by : [facility], [address] [place] [address]., [address] Glucose comment 1 Use This Result MARCELINO Comment:Testing performed by : [address] [address] Glucose comment 2 RN/MD Notified MARCELINO Comment:Testing performed by : [address] [address] Blood 10/15/2024 1:17 PM FAMILY SUPPORT WORKER 10/15/2024 1:17 PM FAMILY SUPPORT WORKER Conor Ventura MD LAB POCT ORDERABLE S - DEVICE Final Result Performing Organization Address [facility] de Phone Number MARCELINO [address] [place] [address] * POCT glucose (10/15/2024 9:12 AM FAMILY SUPPORT WORKER) Glucose, POC 124 70 - 199 mg/dL Comment:Testing performed by : [address] [address] Glucose comment 1 Use This Result MARCELINO Comment:Testing performed by : [address] [address] Glucose comment 2 RN/MD Notified MARCELINO Comment:Testing performed by : [address] [address] Blood 10/15/2024 9:12 AM FAMILY SUPPORT WORKER 10/15/2024 9:12 AM FAMILY SUPPORT WORKER us Conor Ventura MD LAB POCT ORDERABLE S - DEVICE Final Result Performing Organization Address [facility] Co de Phone Number MARCELINO [facility] [place] [address] * eGFR (10/15/2024 5:04 AM FAMILY SUPPORT WORKER) eGFR 73 >=60 mL/min/1. 73 m2 Comment: [...] was last reviewed 2021. Testing performed by: [address] [address] Blood 10/15/2024 5:04 AM FAMILY SUPPORT WORKER 10/15/2024 5:45 AM FAMILY SUPPORT WORKER us Dl Finney MD LAB BLOOD ORDERABLES Final Result Performing Organization Address City/[facility]/ZIP Co de Phone Number MARCELINO [address] [facility] [place] [address] * Differential, auto (10/15/2024 5:04 AM FAMILY SUPPORT WORKER) Neutrophil abs 3.5 1.5 - 6.5 K/cumm Comment:Testing performed by : [address] [address] Imm gran abs 0.0 0.0 - 0.1 K/cumm [facility] Comment:Testing performed by : [address] [address] Lymphocyte abs 1.3 0.8 - 3.3 K/cumm [facility] Comment:Testing performed by : [address] [address] Monocyte abs 0.7 0.2 - 0.8 K/cumm [facility] Comment:Testing performed by : [address] [address] Eosinophil abs 0.2 0.0 - 0.5 K/cumm [facility] Comment:Testing performed by : [address] [address] Basophil abs 0.0 0.0 - 0.1 K/cumm [facility] Comment:Testing performed by : [address] [address] Neutrophil pct 61.5 % [facility] Comment: Interpretive Data Percent cell count reference ranges are not reported, since discordance with absolute values may lead to misinterpretation of CBC data. Current Interpretive Data was last revised on 2017. Testing performed by: [address] [address] Imm gran pct 0.5 % [facility] Comment: Interpretive Data Percent cell count reference ranges are not reported, since discordance with absolute values may lead to misinterpretation of CBC data. Current Interpretive Data was last revised on 2017. Testing performed by: [address] [address] Lymphocyte pct 22.1 % [facility] Comment: Interpretive Data Percent cell count reference ranges are not reported, since discordance with absolute values may lead to misinterpretation of CBC data. Current Interpretive Data was last revised on 2017. Testing performed by: [address] [address] Monocyte pct 11.5 % [facility] Comment: Interpretive Data Percent cell count reference ranges are not reported, since discordance with absolute values may lead to misinterpretation of CBC data. Current Interpretive Data was last revised on 2017. Testing performed by: [address] [address] Eosinophil pct 3.7 % MARCELINO HAYWOOD Comment: Interpretive Data Percent cell count reference ranges are not reported, since discordance with absolute values may lead to misinterpretation of CBC data. Current Interpretive Data was last revised on 2017. Testing performed by: [address] [address] Basophil pct 0.7 % MARCELINO HAYWOOD Comment: Interpretive Data Percent cell count reference ranges are not reported, since discordance with absolute values may lead to misinterpretation of CBC data. Current Interpretive Data was last revised on 2017. Testing performed by: [address] [address] Blood 10/15/2024 5:04 AM FAMILY SUPPORT WORKER 10/15/2024 5:46 AM FAMILY SUPPORT WORKER Dl Finney MD LAB BLOOD ORDERABLES Final Result MARCELINO [facility] Department [place] [address] * (ABNORMAL) CBC with auto differential (10/15/2024 5:04 AM FAMILY SUPPORT WORKER) WBC 5.7 3.8 - 9.9 K/cumm Comment:Testing performed by : [address] [address] Hgb 10.6(L) 11.9 - 15.5 g/dL MARCELINO HAYWOOD Comment:Testing performed by : [address] [address] Hct 35.6 35.6 - 45.5 % MARCELINO HAYWOOD Comment:Testing performed by : [address] [address] Plt 315 150 - 400 K/cumm MARCELINO HAYWOOD Comment:Testing performed by : [address] [address] MPV 9.5 9.1 - 12.3 fL MARCELINO HAYWOOD Comment:Testing performed by : [address] [address] RBC 4.05 3.90 - 5.20 M/cumm MARCELINO HAYWOOD Comment:Testing performed by : [address] [address] MCV 87.9 81.3 - 96.4 fL MARCELINO HAYWOOD Comment:Testing performed by : [address] [address] MCH 26.2(L) 27.1 - 33.3 pg MARCELINO HAYWOOD Comment:Testing performed by : [address] [address] MCHC 29.8(L) 32.3 - 35.7 g/dL MARCELINO HAYWOOD Comment:Testing performed by : [address] [address] RDW CV 17.2(H) 11.1 - 14.9 % MARCELINO Comment:Testing performed by : [address] [address] RDW SD 55.3(H) 35.7 - 48.1 fL MARCELINO Comment:Testing performed by : [address] [address] NRBC abs 0.00 0.00 - 0.01 K/cumm MARCELINO Comment:Testing performed by : [address] [address] Blood 10/15/2024 5:04 AM FAMILY SUPPORT WORKER 10/15/2024 5:46 AM FAMILY SUPPORT WORKER us Dl Finney MD LAB BLOOD ORDERABLES Final Result MARCELINO [address] [facility] Department [place] [address] * (ABNORMAL) Comprehensive metabolic panel (10/15/2024 5:04 AM FAMILY SUPPORT WORKER) Pathologist [facility] Sodium 139 135 - 145 mmol/L Comment:Testing performed by : [address] [address] Potassium, pl 3.8 3.3 - 4.9 mmol/L MARCELINO Comment:Testing performed by : [address] [address] Chloride 102 97 - 110 mmol/L MARCELINO Comment:Testing performed by : [address], [place]., [address] CO2 27 22 - 32 mmol/L MARCELINO Comment:Testing performed by : [address] [address] Anion gap 10 2 - 15 mmol/L [facility] Comment:Testing performed by : [address], [place]., [address] BUN 14 6 - 25 mg/dL [facility] Comment:Testing performed by : [address] [address] Creatinine 0.80 0.60 - 1.10 mg/dL [facility] Comment:Testing performed by : [address] [address] Glucose 121 70 - 199 mg/dL [facility] Comment: Interpretive Data Fasting glucose >/= [...] was last revised 2022. Testing performed by: [address] [address] Calcium 9.9 8.5 - 10.3 mg/dL [facility] Comment:Testing performed by : [address] [address] Bilirubin, total 0.2 0.1 - 1.2 mg/dL [facility] Comment:Testing performed by : [address] [address] Protein, pl 5.9(L) 6.5 - 8.5 g/dL MARCELINO Comment:Testing performed by : [address] [address] Albumin 3.3(L) 3.5 - 5.0 g/dL MARCELINO HAYWOOD Comment:Testing performed by : [address] [address] Alk phos 78 40 - 130 Units/L MARCELINO HAYWOOD Comment:Testing performed by : [address] [address] ALT 9 7 - 45 Units/L MARCELINO Comment:Testing performed by : [address] [address] AST 12 10 - 45 Units/L MARCELINO Comment:Testing performed by : [address] [address] Blood 10/15/2024 5:04 AM FAMILY SUPPORT WORKER 10/15/2024 5:45 AM FAMILY SUPPORT WORKER us Dl Finney MD LAB BLOOD ORDERABLES Final Result Performing Organization Address City/[facility]/ZIP Co de Phone Number [address] [place] [address] * (ABNORMAL) POCT glucose (10/14/2024 8:00 PM FAMILY SUPPORT WORKER) Glucose, POC 240(H) 70 - 199 mg/dL Comment:Testing performed by : [address] [address] Blood 10/14/2024 8:00 PM FAMILY SUPPORT WORKER 10/14/2024 8:00 PM FAMILY SUPPORT WORKER us Conor Ventura MD LAB POCT ORDERABLE S - DEVICE Final Result Performing Organization Address City/[facility]/ZIP Co de Phone Number [address] [address] * POCT glucose (10/14/2024 4:28 PM FAMILY SUPPORT WORKER) Glucose, POC 153 70 - 199 mg/dL Comment:Testing performed by : [address] [address] Blood 10/14/2024 4:28 PM FAMILY SUPPORT WORKER 10/14/2024 4:28 PM FAMILY SUPPORT WORKER Conor Ventura MD LAB POCT ORDERABLE S - DEVICE Final Result Performing Organization Address City/[facility]/ZIP Co de Phone Number [address] [place] [address] * POCT glucose (10/14/2024 9:03 AM FAMILY SUPPORT WORKER) Glucose, POC 115 70 - 199 mg/dL Comment:Testing performed by : [address] [address] Blood 10/14/2024 9:03 AM FAMILY SUPPORT WORKER 10/14/2024 9:03 AM FAMILY SUPPORT WORKER Conor Ventura MD LAB POCT ORDERABLE S - DEVICE Final Result Performing Organization Address City/[facility] Co de Phone Number [address] [address] * eGFR (10/14/2024 5:09 AM FAMILY SUPPORT WORKER) eGFR 73 >=60 mL/min/1. 73 m2 Comment: [...] was last reviewed 2021. Testing performed by: [address] [address] Blood 10/14/2024 5:09 AM FAMILY SUPPORT WORKER 10/14/2024 5:59 AM FAMILY SUPPORT WORKER Dl Finney MD LAB BLOOD ORDERABLES Final Result [facility] [address] [facility] Department [place] [address] * Differential, auto (10/14/2024 5:09 AM FAMILY SUPPORT WORKER) Neutrophil abs 2.2 1.5 - 6.5 K/cumm Comment:Testing performed by : [address] [address] Imm gran abs 0.0 0.0 - 0.1 K/cumm MARCELINO Comment:Testing performed by : [address] [address] Lymphocyte abs 1.2 0.8 - 3.3 K/cumm MARCELINO Comment:Testing performed by : [address] [address] Monocyte abs 0.7 0.2 - 0.8 K/cumm MARCELINO Comment:Testing performed by : [address] [address] Eosinophil abs 0.2 0.0 - 0.5 K/cumm MARCELINO Comment:Testing performed by : [address] [address] Basophil abs 0.0 0.0 - 0.1 K/cumm MARCELINO Comment:Testing performed by : [address] [address] Neutrophil pct 51.0 % MARCELINO Comment: Interpretive Data Percent cell count reference ranges are not reported, since discordance with absolute values may lead to misinterpretation of CBC data. Current Interpretive Data was last revised on 2017. Testing performed by: [address] [address] Imm gran pct 0.7 % MARCELINO Comment: Interpretive Data Percent cell count reference ranges are not reported, since discordance with absolute values may lead to misinterpretation of CBC data. Current Interpretive Data was last revised on 2017. Testing performed by: [address] [address] Lymphocyte pct 27.8 % [facility] Comment: Interpretive Data Percent cell count reference ranges are not reported, since discordance with absolute values may lead to misinterpretation of CBC data. Current Interpretive Data was last revised on 2017. Testing performed by: [address] [address] Monocyte pct 15.8 % [facility] Comment: Interpretive Data Percent cell count reference ranges are not reported, since discordance with absolute values may lead to misinterpretation of CBC data. Current Interpretive Data was last revised on 2017. Testing performed by: [address] [address] Eosinophil pct 4.0 % [facility] Comment: Interpretive Data Percent cell count reference ranges are not reported, since discordance with absolute values may lead to misinterpretation of CBC data. Current Interpretive Data was last revised on 2017. Testing performed by: [address] [address] Basophil pct 0.7 % [facility] Comment: Interpretive Data Percent cell count reference ranges are not reported, since discordance with absolute values may lead to misinterpretation of CBC data. Current Interpretive Data was last revised on 2017. Testing performed by: [address] [address] Blood 10/14/2024 5:09 AM FAMILY SUPPORT WORKER 10/14/2024 5:58 AM FAMILY SUPPORT WORKER us Dl Finney MD LAB BLOOD ORDERABLES Final Result MARCELINO [address] [facility] Department of Laboratories [place], [place] [id number] * (ABNORMAL) CBC with auto differential (10/14/2024 5:09 AM FAMILY SUPPORT WORKER) [facility] Signature WBC 4.2 3.8 - 9.9 K/cumm Comment:Testing performed by : [address] [address] Hgb 10.0(L) 11.9 - 15.5 g/dL MARCELINO Comment:Testing performed by : [address], [address] Hct 33.9(L) 35.6 - 45.5 % MARCELINO Comment:Testing performed by : [address], [address] Plt 302 150 - 400 K/cumm MARCELINO Comment:Testing performed by : [address], [address] MPV 9.6 9.1 - 12.3 fL MARCELINO Comment:Testing performed by : [address], [address] RBC 3.85(L) 3.90 - 5.20 M/cumm MARCELINO Comment:Testing performed by : [address], [address] MCV 88.1 81.3 - 96.4 fL MARCELINO Comment:Testing performed by : [address], [address] MCH 26.0(L) 27.1 - 33.3 pg MARCELINO Comment:Testing performed by : [address], [address] MCHC 29.5(L) 32.3 - 35.7 g/dL MARCELINO Comment:Testing performed by : [address], [address] RDW CV 17.3(H) 11.1 - 14.9 % MARCELINO Comment:Testing performed by : [address], [address] RDW SD 55.3(H) 35.7 - 48.1 fL MARCELINO Comment:Testing performed by : [address] [address] NRBC abs 0.00 0.00 - 0.01 K/cumm MARCELINO Comment:Testing performed by : [address] [address] Blood 10/14/2024 5:09 AM FAMILY SUPPORT WORKER 10/14/2024 5:58 AM FAMILY SUPPORT WORKER Dl Finney MD LAB BLOOD ORDERABLES Final Result MARCELINO [address] [facility] Department [place] [address] * (ABNORMAL) Comprehensive metabolic panel (10/14/2024 5:09 AM FAMILY SUPPORT WORKER) Sodium 141 135 - 145 mmol/L Comment:Testing performed by : [address] [address] Potassium, pl 3.7 3.3 - 4.9 mmol/L MARCELINO Comment:Testing performed by : [address] [address] Chloride 102 97 - 110 mmol/L MARCELINO Comment:Testing performed by : [address] [address] CO2 30 22 - 32 mmol/L MARCELINO Comment:Testing performed by : [address] [address] Anion gap 9 2 - 15 mmol/L MARCELINO Comment:Testing performed by : [address] [address] BUN 15 6 - 25 mg/dL MARCELINO Comment:Testing performed by : [address] [address] Creatinine 0.80 0.60 - 1.10 mg/dL MARCELINO Comment:Testing performed by : [address] [address] Glucose 100 70 - 199 mg/dL MARCELINO [...] was last revised 2022. Testing performed by: [address] [address] Calcium 9.7 8.5 - 10.3 mg/dL MARCELINO Comment:Testing performed by : [address] [address] Bilirubin, total 0.2 0.1 - 1.2 mg/dL MARCELINO Comment:Testing performed by : [address] [address] Protein, pl 5.5(L) 6.5 - 8.5 g/dL MARCELINO Comment:Testing performed by : [address] [address] Albumin 3.1(L) 3.5 - 5.0 g/dL MARCELINO Comment:Testing performed by : [address] [address] Alk phos 71 40 - 130 Units/L MARCELINO Comment:Testing performed by : [address] [address] ALT 8 7 - 45 Units/L MARCELINO Comment:Testing performed by : [address] [address] AST 9(L) 10 - 45 Units/L MARCELINO Comment:Testing performed by : [address] [address] Blood 10/14/2024 5:09 AM FAMILY SUPPORT WORKER 10/14/2024 5:59 AM FAMILY SUPPORT WORKER us Dl Finney MD LAB BLOOD ORDERABLES Final Result MARCELINO [address] [place] [address] * POCT glucose (10/13/2024 9:39 PM FAMILY SUPPORT WORKER) Glucose, POC 136 70 - 199 mg/dL Comment:Testing performed by : [address] [address] Glucose comment 1 Use This Result MARCELINO Comment:Testing performed by : [address] [address] Glucose comment 2 RN/MD Notified MARCELINO Comment:Testing performed by : [address] [address] Blood 10/13/2024 9:39 PM FAMILY SUPPORT WORKER 10/13/2024 9:39 PM FAMILY SUPPORT WORKER Conor Ventura MD LAB POCT ORDERABLE S - DEVICE Final Result Performing Organization Address City/[facility]/ZIP Co de Phone Number [address] [address] [address] [place] [address] * POCT glucose (10/13/2024 5:05 PM FAMILY SUPPORT WORKER) Glucose, POC 130 70 - 199 mg/dL Comment:Testing performed by : [address], [address] Blood 10/13/2024 5:05 PM FAMILY SUPPORT WORKER 10/13/2024 5:05 PM FAMILY SUPPORT WORKER Conor Ventura MD LAB POCT ORDERABLE S - DEVICE Final Result [place] [address] [place] [address] * POCT glucose (10/13/2024 1:15 PM FAMILY SUPPORT WORKER) Glucose, POC 127 70 - 199 mg/dL Comment:Testing performed by : [address] [address] Glucose comment 1 Use This Result MARCELINO Comment:Testing performed by : [address] [address] Blood 10/13/2024 1:15 PM FAMILY SUPPORT WORKER 10/13/2024 1:15 PM FAMILY SUPPORT WORKER Conor Ventura MD LAB POCT ORDERABLE S - DEVICE Final Result Performing Organization Address City/[facility]/ZIP Co de Phone Number [address] [place] [address] * POCT glucose (10/13/2024 8:15 AM FAMILY SUPPORT WORKER) Glucose, POC 92 70 - 199 mg/dL Comment:Testing performed by : [address] [address] Blood 10/13/2024 8:15 AM FAMILY SUPPORT WORKER 10/13/2024 8:15 AM FAMILY SUPPORT WORKER Conor Ventura MD LAB POCT ORDERABLE S - DEVICE Final Result Performing Organization Address [facility] Co de Phone Number [address] [address] * eGFR (10/13/2024 5:17 AM FAMILY SUPPORT WORKER) eGFR 73 >=60 mL/min/1. 73 m2 Comment: [...] was last reviewed 2021. Testing performed by: [address] [address] Blood 10/13/2024 5:17 AM FAMILY SUPPORT WORKER 10/13/2024 6:16 AM FAMILY SUPPORT WORKER Dl Finney MD LAB BLOOD ORDERABLES Final Result [facility] [address] [facility] Department [place] [address] * Differential, auto (10/13/2024 5:17 AM FAMILY SUPPORT WORKER) Neutrophil abs 3.7 1.5 - 6.5 K/cumm Comment:Testing performed by : [address] [address] Imm gran abs 0.1 0.0 - 0.1 K/cumm MARCELINO Comment:Testing performed by : [address] [address] Lymphocyte abs 1.3 0.8 - 3.3 K/cumm MARCELINO Comment:Testing performed by : [address] [address] Monocyte abs 0.6 0.2 - 0.8 K/cumm MARCELINO Comment:Testing performed by : [address] [address] Eosinophil abs 0.2 0.0 - 0.5 K/cumm MARCELINO Comment:Testing performed by : [address] [address] Basophil abs 0.0 0.0 - 0.1 K/cumm MARCELINO Comment:Testing performed by : [address] [address] Neutrophil pct 62.8 % MARCELINO Comment: Interpretive Data Percent cell count reference ranges are not reported, since discordance with absolute values may lead to misinterpretation of CBC data. Current Interpretive Data was last revised on 2017. Testing performed by: [address] [address] Imm gran pct 0.9 % [facility] Comment: Interpretive Data Percent cell count reference ranges are not reported, since discordance with absolute values may lead to misinterpretation of CBC data. Current Interpretive Data was last revised on 2017. Testing performed by: [address] [address] Lymphocyte pct 22.0 % [facility] Comment: Interpretive Data Percent cell count reference ranges are not reported, since discordance with absolute values may lead to misinterpretation of CBC data. Current Interpretive Data was last revised on 2017. Testing performed by: [address] [address] Monocyte pct 10.7 % [facility] Comment: Interpretive Data Percent cell count reference ranges are not reported, since discordance with absolute values may lead to misinterpretation of CBC data. Current Interpretive Data was last revised on 2017. Testing performed by: [address] [address] Eosinophil pct 3.1 % [facility] Comment: Interpretive Data Percent cell count reference ranges are not reported, since discordance with absolute values may lead to misinterpretation of CBC data. Current Interpretive Data was last revised on 2017. Testing performed by: [address] [address] Basophil pct 0.5 % [facility] Comment: Interpretive Data Percent cell count reference ranges are not reported, since discordance with absolute values may lead to misinterpretation of CBC data. Current Interpretive Data was last revised on 2017. Testing performed by: [address] [address] Blood 10/13/2024 5:17 AM FAMILY SUPPORT WORKER 10/13/2024 6:16 AM FAMILY SUPPORT WORKER us Dl Finney MD LAB BLOOD ORDERABLES Final Result MARCELINO [address] [facility] Department [place] [address] * (ABNORMAL) CBC with auto differential (10/13/2024 5:17 AM FAMILY SUPPORT WORKER) [facility] WBC 5.9 3.8 - 9.9 K/cumm Comment:Testing performed by : [address] [address] Hgb 10.4(L) 11.9 - 15.5 g/dL MARCELINO Comment:Testing performed by : [address] [address] Hct 34.7(L) 35.6 - 45.5 % MARCELINO Comment:Testing performed by : [address] [address] Plt 342 150 - 400 K/cumm MARCELINO Comment:Testing performed by : [address] [address] MPV 9.7 9.1 - 12.3 fL MARCELINO Comment:Testing performed by : [address] [address] RBC 3.92 3.90 - 5.20 M/cumm MARCELINO Comment:Testing performed by : [address] [address] MCV 88.5 81.3 - 96.4 fL MARCELINO Comment:Testing performed by : [address] [address] MCH 26.5(L) 27.1 - 33.3 pg MARCELINO Comment:Testing performed by : [address] [address] MCHC 30.0(L) 32.3 - 35.7 g/dL MARCLEINO Comment:Testing performed by : [address] [address] RDW CV 17.1(H) 11.1 - 14.9 % MARCELINO Comment:Testing performed by : [address] [address] RDW SD 55.2(H) 35.7 - 48.1 fL MARCELINO Comment:Testing performed by : [address] [address] NRBC abs 0.00 0.00 - 0.01 K/cumm MARCELINO Comment:Testing performed by : [address] [address] Blood 10/13/2024 5:17 AM FAMILY SUPPORT WORKER 10/13/2024 6:16 AM FAMILY SUPPORT WORKER Dl Finney MD LAB BLOOD ORDERABLES Final Result MARCELINO 4500 [facility] Department [place] [address] * (ABNORMAL) Comprehensive metabolic panel (10/13/2024 5:17 AM FAMILY SUPPORT WORKER) Sodium 138 135 - 145 mmol/L Comment:Testing performed by : [address] [address] Potassium, pl 3.9 3.3 - 4.9 mmol/L MARCELINO Comment:Testing performed by : [address] [address] Chloride 102 97 - 110 mmol/L MARCELINO Comment:Testing performed by : [address] [address] CO2 28 22 - 32 mmol/L MARCELINO Comment:Testing performed by : [address] [address] Anion gap 8 2 - 15 mmol/L MARCELINO Comment:Testing performed by : [address] [address] BUN 15 6 - 25 mg/dL MARCELINO Comment:Testing performed by : [address] [address] Creatinine 0.80 0.60 - 1.10 mg/dL MARCELINO Comment:Testing performed by : [address] [address] Glucose 100 70 - 199 mg/dL MARCELINO [...] was last revised 2022. Testing performed by: [address] [address] Calcium 10.1 8.5 - 10.3 mg/dL MARCELINO Comment:Testing performed by : [address] [address] Bilirubin, total 0.3 0.1 - 1.2 mg/dL MARCELINO Comment:Testing performed by : [address] [address] Protein, pl 6.0(L) 6.5 - 8.5 g/dL MARCELINO Comment:Testing performed by : [address] [address] Albumin 3.4(L) 3.5 - 5.0 g/dL MARCELINO Comment:Testing performed by : [address] [address] Alk phos 83 40 - 130 Units/L MARCELINO Comment:Testing performed by : [address] [address] ALT 9 7 - 45 Units/L MARCELINO Comment:Testing performed by : [address] [address] AST 10 10 - 45 Units/L MARCELINO Comment:Testing performed by : [address] [address] Blood 10/13/2024 5:17 AM FAMILY SUPPORT WORKER 10/13/2024 6:16 AM FAMILY SUPPORT WORKER us Dl Finney MD LAB BLOOD ORDERABLES Final Result MARCELINO 9932 [facility] [place] [address] * POCT glucose (10/12/2024 8:39 PM FAMILY SUPPORT WORKER) Glucose, POC 168 70 - 199 mg/dL Comment:Testing performed by : [facility], [address] [place] [address]., [address] Glucose comment 1 Use This Result MARCELINO Comment:Testing performed by : [address] [address] Blood 10/12/2024 8:39 PM FAMILY SUPPORT WORKER 10/12/2024 8:39 PM FAMILY SUPPORT WORKER Conor Ventura MD LAB POCT ORDERABLE S - DEVICE Final Result Performing Organization Address [facility] Co de Phone Number [address] [address] * (ABNORMAL) POCT glucose (10/12/2024 5:40 PM FAMILY SUPPORT WORKER) [facility] Signature Glucose, POC 213(H) 70 - 199 mg/dL Comment:Testing performed by : [facility], [address] [place] [address]., [address] Glucose comment 1 Use This Result [facility] Comment:Testing performed by : [address] [address] Glucose comment 2 RN/MD Notified [facility] Comment:Testing performed by : [address] [address] Blood 10/12/2024 5:40 PM FAMILY SUPPORT WORKER 10/12/2024 5:40 PM FAMILY SUPPORT WORKER Conor Ventura MD LAB POCT ORDERABLE S - DEVICE Final Result Performing Organization Address City/[facility]/ZIP Co de Phone Number [address] [address] * (ABNORMAL) POCT glucose (10/12/2024 5:01 PM FAMILY SUPPORT WORKER) Glucose, POC 224(H) 70 - 199 mg/dL Comment:Testing performed by : [address] [address] Blood 10/12/2024 5:01 PM FAMILY SUPPORT WORKER 10/12/2024 5:01 PM FAMILY SUPPORT WORKER Conor Ventura MD LAB POCT ORDERABLE S - DEVICE Final Result Performing Organization Address [facility] de Phone Number MARCELINO 4500 [facility] [place] [address] * (ABNORMAL) POCT glucose (10/12/2024 11:14 AM FAMILY SUPPORT WORKER) [facility] Glucose, POC 205(H) 70 - 199 mg/dL Comment:Testing performed by : [address] [address] Glucose comment 1 Use This Result MARCELINO Comment:Testing performed by : [address] [address] Glucose comment 2 RN/MD Notified MARCELINO Comment:Testing performed by : [address] [address] Blood 10/12/2024 11:1 4 AM FAMILY SUPPORT WORKER 10/12/2024 11:14 AM FAMILY SUPPORT WORKER Conor Ventura MD LAB POCT ORDERABLE S - DEVICE Final Result Performing Organization Address [facility] Co de Phone Number [place] [phone] [facility] [place] [address] * eGFR (10/12/2024 9:15 AM FAMILY SUPPORT WORKER) Pathologist [facility] eGFR 73 >=60 mL/min/1. 73 m2 Comment: [...] was last reviewed 2021. Testing performed by: [address] [address] Blood 10/12/2024 9:15 AM FAMILY SUPPORT WORKER 10/12/2024 9:27 AM FAMILY SUPPORT WORKER Dl Finney MD LAB BLOOD ORDERABLES Final Result MARCELINO [facility] Department [place] [address] * Differential, auto (10/12/2024 9:15 AM FAMILY SUPPORT WORKER) Neutrophil abs 6.3 1.5 - 6.5 K/cumm Comment:Testing performed by : [address] [address] Imm gran abs 0.1 0.0 - 0.1 K/cumm MARCELINO Comment:Testing performed by : [address] [address] Lymphocyte abs 1.3 0.8 - 3.3 K/cumm MARCELINO Comment:Testing performed by : [address] [address] Monocyte abs 0.7 0.2 - 0.8 K/cumm MARCELINO Comment:Testing performed by : [address] [address] Eosinophil abs 0.2 0.0 - 0.5 K/cumm MARCELINO Comment:Testing performed by : [address] [address] Basophil abs 0.0 0.0 - 0.1 K/cumm MARCELINO Comment:Testing performed by : [address] [address] Neutrophil pct 73.9 % MARCELINO Comment: Interpretive Data Percent cell count reference ranges are not reported, since discordance with absolute values may lead to misinterpretation of CBC data. Current Interpretive Data was last revised on 2017. Testing performed by: [address] [address] Imm gran pct 0.8 % MARCELINO Comment: Interpretive Data Percent cell count reference ranges are not reported, since discordance with absolute values may lead to misinterpretation of CBC data. Current Interpretive Data was last revised on 2017. Testing performed by: [address] [address] Lymphocyte pct 15.4 % [facility] Comment: Interpretive Data Percent cell count reference ranges are not reported, since discordance with absolute values may lead to misinterpretation of CBC data. Current Interpretive Data was last revised on 2017. Testing performed by: [address] [address] Monocyte pct 7.6 % [facility] Comment: Interpretive Data Percent cell count reference ranges are not reported, since discordance with absolute values may lead to misinterpretation of CBC data. Current Interpretive Data was last revised on 2017. Testing performed by: [address] [address] Eosinophil pct 2.2 % [facility] Comment: Interpretive Data Percent cell count reference ranges are not reported, since discordance with absolute values may lead to misinterpretation of CBC data. Current Interpretive Data was last revised on 2017. Testing performed by: [address] [address] Basophil pct 0.1 % [facility] Comment: Interpretive Data Percent cell count reference ranges are not reported, since discordance with absolute values may lead to misinterpretation of CBC data. Current Interpretive Data was last revised on 2017. Testing performed by: [address] [address] Blood 10/12/2024 9:15 AM FAMILY SUPPORT WORKER 10/12/2024 9:27 AM FAMILY SUPPORT WORKER us Conor Ventura MD LAB BLOOD ORDERABL ES Final Result MARCELINO 0708 [facility] Department [place] [address] * (ABNORMAL) CBC with auto differential (10/12/2024 9:15 AM FAMILY SUPPORT WORKER) Pathologist [facility] WBC 8.5 3.8 - 9.9 K/cumm Comment:Testing performed by : [address] [address] Hgb 10.2(L) 11.9 - 15.5 g/dL MARCELINO HAYWOOD Comment:Testing performed by : [address] [address] Hct 35.1(L) 35.6 - 45.5 % MARCELINO Comment:Testing performed by : [address] [address] Plt 297 150 - 400 K/cumm MARCELINO Comment:Testing performed by : [address] [address] MPV 9.7 9.1 - 12.3 fL MARCELINO HAYWOOD Comment:Testing performed by : [address] [address] RBC 3.92 3.90 - 5.20 M/cumm MARCELINO HAYWOOD Comment:Testing performed by : [address] [address] MCV 89.5 81.3 - 96.4 fL MARCELINO HAYWOOD Comment:Testing performed by : [address] [address] MCH 26.0(L) 27.1 - 33.3 pg MARCELINO HAYWOOD Comment:Testing performed by : [address] [address] MCHC 29.1(L) 32.3 - 35.7 g/dL MARCELINO HAYWOOD Comment:Testing performed by : [address] [address] RDW CV 17.2(H) 11.1 - 14.9 % MARCELINO HAYWOOD Comment:Testing performed by : [address] [address] RDW SD 55.8(H) 35.7 - 48.1 fL MARCELINO HAYWOOD Comment:Testing performed by : [address] [address] NRBC abs 0.00 0.00 - 0.01 K/cumm MARCELINO HAYWOOD Comment:Testing performed by : [address] [address] Blood 10/12/2024 9:15 AM FAMILY SUPPORT WORKER 10/12/2024 9:27 AM FAMILY SUPPORT WORKER Conor Ventura MD LAB BLOOD ORDERABL ES Final Result MARCELINO [facility] Department [place] [address] * (ABNORMAL) Comprehensive metabolic panel (10/12/2024 9:15 AM FAMILY SUPPORT WORKER) Sodium 137 135 - 145 mmol/L Comment:Testing performed by : [address] [address] Potassium, pl 4.4 3.3 - 4.9 mmol/L MARCELINO HAYWOOD Comment:Testing performed by : [address] [address] Chloride 102 97 - 110 mmol/L MARCELINO Comment:Testing performed by : [address] [address] CO2 27 22 - 32 mmol/L MARCELINO Comment:Testing performed by : [address] [address] Anion gap 8 2 - 15 mmol/L MARCELINO HAYWOOD Comment:Testing performed by : [address] [address] BUN 16 6 - 25 mg/dL MARCELINO Comment:Testing performed by : [address] [address] Creatinine 0.80 0.60 - 1.10 mg/dL MARCELINO Comment:Testing performed by : [address] [address] Glucose 113 70 - 199 mg/dL MARCELINO [...] was last revised 2022. Testing performed by: [address] [address] Calcium 9.8 8.5 - 10.3 mg/dL MARCELINO Comment:Testing performed by : [address] [address] Bilirubin, total 0.3 0.1 - 1.2 mg/dL MARCELINO Comment:Testing performed by : [address] [address] Protein, pl 5.7(L) 6.5 - 8.5 g/dL MARCELINO Comment:Testing performed by : [address] [address] Albumin 3.2(L) 3.5 - 5.0 g/dL [facility] Comment:Testing performed by : [address] [address] Alk phos 77 40 - 130 Units/L MARCELINO Comment:Testing performed by : [address] [address] ALT 7 7 - 45 Units/L MARCELINO Comment:Testing performed by : [address] [address] AST 13 10 - 45 Units/L MARCELINO Comment:Testing performed by : [address] [address] Blood 10/12/2024 9:15 AM FAMILY SUPPORT WORKER 10/12/2024 9:27 AM FAMILY SUPPORT WORKER us Dl Finney MD LAB BLOOD ORDERABLES Final Result Performing Organization Address [facility] Co de Phone Number MARCELINO 4500 [facility] [place] [address] * POCT glucose (10/12/2024 7:46 AM FAMILY SUPPORT WORKER) [facility] Signature Glucose, POC 114 70 - 199 mg/dL Comment:Testing performed by : [address] [address] Glucose comment 1 Use This Result MARCELINO Comment:Testing performed by : [address] [address] Glucose comment 2 RN/MD Notified MARCELINO Comment:Testing performed by : [address] [address] Blood 10/12/2024 7:46 AM FAMILY SUPPORT WORKER 10/12/2024 7:46 AM FAMILY SUPPORT WORKER us Conor Ventura MD LAB POCT ORDERABLE S - DEVICE Final Result Performing Organization Address [facility] Co de Phone Number MARCELINO 4500 [facility] [place] [address] * (ABNORMAL) POCT glucose (10/11/2024 9:10 PM FAMILY SUPPORT WORKER) [facility] Glucose, POC 254(H) 70 - 199 mg/dL Comment:Testing performed by : [address] [address] Glucose comment 1 Use This Result MARCELINO Comment:Testing performed by : [address] [address] Glucose comment 2 RN/MD Notified MARCELINO Comment:Testing performed by : [address] [address] Blood 10/11/2024 9:10 PM FAMILY SUPPORT WORKER 10/11/2024 9:10 PM FAMILY SUPPORT WORKER Conor Ventura MD LAB POCT ORDERABLE S - DEVICE Final Result MARCELINO HAYWOOD 45[address] [facility] Department [place] [address] * (ABNORMAL) POCT glucose (10/11/2024 3:37 PM FAMILY SUPPORT WORKER) Glucose, POC 284(H) 70 - 199 mg/dL Comment:Testing performed by : [facility], [address] [place] [address]., [address] Glucose comment 1 Use This Result MARCELINO Comment:Testing performed by : [address] [address] Glucose comment 2 RN/MD Notified MARCELINO Comment:Testing performed by : [address] [address] Blood 10/11/2024 3:37 PM FAMILY SUPPORT WORKER 10/11/2024 3:37 PM FAMILY SUPPORT WORKER Conor Ventura MD LAB POCT ORDERABLE S - DEVICE Final Result MARCELINO HAYWOOD 88[address] [facility] Department [place] [address] * (ABNORMAL) POCT glucose (10/11/2024 11:20 AM FAMILY SUPPORT WORKER) Glucose, POC 202(H) 70 - 199 mg/dL Comment:Testing performed by : [address] [address] Glucose comment 1 Use This Result MARCELINO Comment:Testing performed by : [address] [address] Glucose comment 2 RN/MD Notified MARCELINO Comment:Testing performed by : [address] [address] Blood 10/11/2024 11:2 0 AM FAMILY SUPPORT WORKER 10/11/2024 11:20 AM FAMILY SUPPORT WORKER us Conor Ventura MD LAB POCT ORDERABLE S - DEVICE Final Result Performing Organization Address [facility] Co de Phone Number MARCELINO [address] [place] [address] * POCT glucose (10/11/2024 7:52 AM FAMILY SUPPORT WORKER) Glucose, POC 128 70 - 199 mg/dL Comment:Testing performed by : [address] [address] Glucose comment 1 Use This Result MARCELINO HAYWOOD Comment:Testing performed by : [address] [address] Glucose comment 2 RN/MD Notified MARCELINO Comment:Testing performed by : [address] [address] Blood 10/11/2024 7:52 AM FAMILY SUPPORT WORKER 10/11/2024 7:52 AM FAMILY SUPPORT WORKER Conor Ventura MD LAB POCT ORDERABLE S - DEVICE Final Result Performing Organization Address [facility] Co de Phone Number MARCELINO [address] [place] [address] * eGFR (10/11/2024 5:35 AM FAMILY SUPPORT WORKER) eGFR 63 >=60 mL/min/1. 73 m2 Comment: [...] was last reviewed 2021. Testing performed by: [address] [address] Blood 10/11/2024 5:35 AM FAMILY SUPPORT WORKER 10/11/2024 5:47 AM FAMILY SUPPORT WORKER Dl Finney MD LAB BLOOD ORDERABLES Final Result [facility] [address] [facility] Department of Laboratories [place], [place] [address] * (ABNORMAL) Differential, auto (10/11/2024 5:35 AM FAMILY SUPPORT WORKER) Neutrophil abs 8.8(H) 1.5 - 6.5 K/cumm Comment:Testing performed by : [address] [address] Imm gran abs 0.1 0.0 - 0.1 K/cumm MARCELINO Comment:Testing performed by : [address] [address] Lymphocyte abs 1.1 0.8 - 3.3 K/cumm MARCELINO Comment:Testing performed by : [address] [address] Monocyte abs 0.9(H) 0.2 - 0.8 K/cumm MARCELINO Comment:Testing performed by : [address] [address] Eosinophil abs 0.2 0.0 - 0.5 K/cumm MARCELINO Comment:Testing performed by : [address] [address] Basophil abs 0.0 0.0 - 0.1 K/cumm MARCELINO Comment:Testing performed by : [address] [address] Neutrophil pct 79.0 % MARCELINO Comment: Interpretive Data Percent cell count reference ranges are not reported, since discordance with absolute values may lead to misinterpretation of CBC data. Current Interpretive Data was last revised on 2017. Testing performed by: [address] [address] Imm gran pct 1.2 % [facility] Comment: Interpretive Data Percent cell count reference ranges are not reported, since discordance with absolute values may lead to misinterpretation of CBC data. Current Interpretive Data was last revised on 2017. Testing performed by: [address] [address] Lymphocyte pct 9.7 % [facility] Comment: Interpretive Data Percent cell count reference ranges are not reported, since discordance with absolute values may lead to misinterpretation of CBC data. Current Interpretive Data was last revised on 2017. Testing performed by: [address] [address] Monocyte pct 8.4 % [facility] Comment: Interpretive Data Percent cell count reference ranges are not reported, since discordance with absolute values may lead to misinterpretation of CBC data. Current Interpretive Data was last revised on 2017. Testing performed by: [address] [address] Eosinophil pct 1.5 % [facility] Comment: Interpretive Data Percent cell count reference ranges are not reported, since discordance with absolute values may lead to misinterpretation of CBC data. Current Interpretive Data was last revised on 2017. Testing performed by: [address] [address] Basophil pct 0.2 % [facility] Comment: Interpretive Data Percent cell count reference ranges are not reported, since discordance with absolute values may lead to misinterpretation of CBC data. Current Interpretive Data was last revised on 2017. Testing performed by: [address] [address] Blood 10/11/2024 5:35 AM FAMILY SUPPORT WORKER 10/11/2024 5:47 AM FAMILY SUPPORT WORKER Dl Finney MD LAB BLOOD ORDERABLES Final Result MARCELINO 228[address] [facility] Department [place] [address] * (ABNORMAL) CBC with auto differential (10/11/2024 5:35 AM FAMILY SUPPORT WORKER) [facility] WBC 11.1(H) 3.8 - 9.9 K/cumm Comment:Testing performed by : [address] [address] Hgb 10.5(L) 11.9 - 15.5 g/dL MARCELINO Comment:Testing performed by : [address] [address] Hct 34.4(L) 35.6 - 45.5 % MARCELINO Comment:Testing performed by : [address] [address] Plt 312 150 - 400 K/cumm MARCELINO Comment:Testing performed by : [address] [address] MPV 10.3 9.1 - 12.3 fL MARCELINO Comment:Testing performed by : [address], [address] RBC 3.97 3.90 - 5.20 M/cumm MARCELINO Comment:Testing performed by : [address] [address] MCV 86.6 81.3 - 96.4 fL MARCELINO Comment:Testing performed by : [address] [address] MCH 26.4(L) 27.1 - 33.3 pg MARCELINO Comment:Testing performed by : [address] [address] MCHC 30.5(L) 32.3 - 35.7 g/dL MARCELINO Comment:Testing performed by : [address], [address] RDW CV 17.2(H) 11.1 - 14.9 % MARCELINO Comment:Testing performed by : [address], [address] RDW SD 55.1(H) 35.7 - 48.1 fL MARCELINO Comment:Testing performed by : [address] [address] NRBC abs 0.00 0.00 - 0.01 K/cumm MARCELINO HAYWOOD Comment:Testing performed by : [address] [address] Blood 10/11/2024 5:35 AM FAMILY SUPPORT WORKER 10/11/2024 5:47 AM FAMILY SUPPORT WORKER us Dl Finney MD LAB BLOOD ORDERABLES Final Result Performing Organization Address City/[facility]/ZIP Co de Phone Number [address] [place] [address] * Magnesium (10/11/2024 5:35 AM FAMILY SUPPORT WORKER) Pathologist [facility] Magnesium 1.7 1.4 - 2.5 mg/dL Comment:Testing performed by : [address] [address] Blood 10/11/2024 5:35 AM FAMILY SUPPORT WORKER 10/11/2024 5:47 AM FAMILY SUPPORT WORKER us Conor Ventura MD LAB BLOOD ORDERABL ES Final Result Performing Organization Address [facility]/ZIP Co de Phone Number [address] [address] * (ABNORMAL) Comprehensive metabolic panel (10/11/2024 5:35 AM FAMILY SUPPORT WORKER) Pathologist [facility] Sodium 136 135 - 145 mmol/L Comment:Testing performed by : [address] [address] Potassium, pl 3.8 3.3 - 4.9 mmol/L MARCELINO HAYOWOD Comment:Testing performed by : [address] [address] Chloride 99 97 - 110 mmol/L MARCELINO HAYWOOD Comment:Testing performed by : [address] [address] CO2 23 22 - 32 mmol/L MARCELINO HAYWOOD Comment:Testing performed by : [address] [address] Anion gap 14 2 - 15 mmol/L MARCELINO Comment:Testing performed by : [address] [address] BUN 23 6 - 25 mg/dL MARCELINO Comment:Testing performed by : [address] [address] Creatinine 0.90 0.60 - 1.10 mg/dL MARCELINO Comment:Testing performed by : [address] [address] Glucose 148 70 - 199 mg/dL MARCELINO [...] was last revised 2022. Testing performed by: [address] [address] Calcium 9.2 8.5 - 10.3 mg/dL MARCELINO Comment:Testing performed by : [address] [address] Bilirubin, total 0.5 0.1 - 1.2 mg/dL MARCELINO Comment:Testing performed by : [address] [address] Protein, pl 5.6(L) 6.5 - 8.5 g/dL MARCELINO Comment:Testing performed by : [address] [address] Albumin 3.3(L) 3.5 - 5.0 g/dL MARCELINO Comment:Testing performed by : [address] [address] Alk phos 79 40 - 130 Units/L MARCELINO Comment:Testing performed by : [facility], [address] [place] [address]., [address] ALT 10 7 - 45 Units/L MARCELINO Comment:Testing performed by : [address] [address] AST 12 10 - 45 Units/L MARCELINO Comment:Testing performed by : [facility], [address] [place] [address]., [address] Blood 10/11/2024 5:35 AM FAMILY SUPPORT WORKER 10/11/2024 5:47 AM FAMILY SUPPORT WORKER Dl Finney MD LAB BLOOD ORDERABLES Final Result Performing Organization Address [facility] Co de Phone Number [address] [employer] [place] [address] * (ABNORMAL) MRSA Only (Staphylococcus aureus) PCR Nasal (10/10/2024 9:32 PM FAMILY SUPPORT WORKER) [facility] PCR Scrn, Methicillin resistant Staphylococcus aureus (MRSA) Detected( A) Not Detected Comment: Interpretive Data Testing performed using Nucleic Acid Amplification with the [employer] Xpert MRSA NxG Assay. This assay detects target DNA from mecA, mecC and the SCCmec insertion site of Staphylococcus aureus using Real-Time PCR and has been cleared by the FDA. Performance characteristics have been verified by the [facility]. Current Interpretive Data was last revised on 2023 Testing performed by: [address] [address] Nasal 10/10/2024 9:32 PM FAMILY SUPPORT WORKER 10/10/2024 9:37 PM FAMILY SUPPORT WORKER Dl leone MD LAB MICROBIOLOGY - GENERAL ORDERABLES Final Result Performing Organization Address City/[facility] de Phone Number [address] [place] [address] * POCT glucose (10/10/2024 9:23 PM FAMILY SUPPORT WORKER) [facility] Glucose, POC 175 70 - 199 mg/dL Comment:Testing performed by : [address] [address] Glucose comment 1 Use This Result MARCELINO Comment:Testing performed by : [address] [address] Blood 10/10/2024 9:23 PM FAMILY SUPPORT WORKER 10/10/2024 9:23 PM FAMILY SUPPORT WORKER us Dl Finney MD LAB POCT ORDERABLES - DEVICE Final Result Performing Organization Address [facility]/ZIP Co de Phone Number MARCELINO [address] [facility] [address] * (ABNORMAL) Troponin T high-sensitivity 6-hour (10/10/2024 8:52 PM FAMILY SUPPORT WORKER) [facility] Trop T hs 58(H) <=14 ng/L Comment: Interpretive Data For further hscTnT resources including the diagnostic algorithm and an aid in interpretation, copy and paste this link: https://nrl.testcatalog.org/show/hsTrop Current Interpretive Data last revised 2020. Testing performed by: [address] [address] Trop T hs delta 5 ng/L MARCELINO Comment:Testing performed by : [address] [address] Trop T hs interp Equivocal MARCELINO Comment:Testing performed by : [address] [address] Blood 10/10/2024 8:52 PM FAMILY SUPPORT WORKER 10/10/2024 9:14 PM FAMILY SUPPORT WORKER us Iliana Erazo MD LAB BLOOD ORDERABLES F inal Result Performing Organization Address City/[facility]/ZIP Co de Phone Number MARCELINO [address] [facility] [place] [address] * (ABNORMAL) Troponin T high-sensitivity 2-hour (10/10/2024 4:43 PM FAMILY SUPPORT WORKER) Trop T hs 51(H) <=14 ng/L Comment: Interpretive Data For further hscTnT resources including the diagnostic algorithm and an aid in interpretation, copy and paste this link: https://nrl.testcatalog.org/show/hsTrop Current Interpretive Data last revised 2020. Testing performed by: [facility], [address] [place] [address]., [address] Trop T hs delta -2 ng/L MARCELINO Comment:Testing performed by : [facility], [address] [place] [address]., [address] Trop T hs interp Insignificant MARCELINO Comment:Testing performed by : [address] [address] Blood 10/10/2024 4:43 PM FAMILY SUPPORT WORKER 10/10/2024 4:45 PM FAMILY SUPPORT WORKER Iliana Erazo MD LAB BLOOD ORDERABLES F inal Result MARCELINO [address] [facility] Department of Laboratories [place], [place] [id number] * (ABNORMAL) Urinalysis reflex to microscopic and culture Urine (10/10/2024 4:16 PM FAMILY SUPPORT WORKER) Color, ur Yellow Yellow Comment:Testing performed by : [address] [address] Clarity, ur Clear Clear MARCELINO Comment:Testing performed by : [address] [address] Specific gravity, ur 1.046(H) 1.003 - 1.030 MARCELINO Comment:Testing performed by : [address] [address] pH, urine 6.0 MARCELINO Comment: Interpretive Data U rine pH is affected by diet, medications, systemic acid-base disturbances, and renal tubular function. pH may affect urinary stone formation. For example, urine pH below 6.0 may help reduce the tendency for calcium phosphate stones and pH greater than 6.0 may reduce the tendency for uric acid stone formation. Source: [employer] Current Interpretive Data was last revised on 2017 Testing performed by: [facility], [address] [place] [address], [place]., [address] Protein, ur ql 1+(A) Negative MARCELINO Comment:Testing performed by : [facility], [address] [place] [address], [place]., [address] Glucose, ur ql Negative Negative MARCELINO Comment:Testing performed by : [address] [address] Ketones, ur Trace(A) Negative MARCELINO Comment:Testing performed by : [address], [place]., [address] Bilirubin, ur Negative Negative MARCELINO Comment:Testing performed by : [address], [place]., [address] Blood, ur 3+(A) Negative MARCELINO Comment:Testing performed by : [address], [place]., [address] Urobilinogen, ur <2.0 <2.0 mg/dL MARCELINO Comment:Testing performed by : [address], [place]., [address] Nitrite, ur Positive(A) Negative MARCELINO Comment:Testing performed by : [address] [address] Leukocyte esterase, ur 2+(A) Negative MARCELINO Comment:Testing performed by : [address] [address] UA reflex comment Reflex to microscopic UA will be performed. MARCELINO Comment:Testing performed by : [address] [address] Urine 10/10/2024 4:16 PM FAMILY SUPPORT WORKER 10/10/2024 4:22 PM FAMILY SUPPORT WORKER us Iliana Erazo MD LAB MICROBIOLOGY - GEN ERAL ORDERABLES Final Result MARCELINO HAYWOOD [address] [facility] Department [place] [address] * Blood culture Blood Peripheral (10/10/2024 4:16 PM FAMILY SUPPORT WORKER) Report Final Report: No growth Comment:Testing performed by : [facility], [address] [facility], [place]., [address] Blood (Peripheral) 10/10/2024 4:16 PM FAMILY SUPPORT WORKER 10/10/2024 8:08 PM FAMILY SUPPORT WORKER Narrative MARCELINO - 10/15/2024 7:00 AM FAMILY SUPPORT WORKER Received only aerobic blood culture bottle Draw [...] performance characteristics have been verified by the [facility] Microbiology Laboratory. For questions about this culture, contact the Microbiology Laboratory at [phone]. Interpretive data was last revised on 24. Dl leone MD LAB MICROBIOLOGY - GENERAL ORDERABLES Final Result MARCELINO [address] [facility] Department [place] [address] * (ABNORMAL) Urinalysis, microscopic only (10/10/2024 4:16 PM FAMILY SUPPORT WORKER) WBC, ur 21-50(A) 0 - 5 /HPF Comment:Testing performed by : [facility], [address] [place] [address]., [address] RBC, ur 21-50(A) 0 - 2 /HPF MARCELINO Comment:Testing performed by : [facility], [address] [place] [address]., [address] Bacteria, ur 4+(A) MARCELINO Comment:Testing performed by : [facility], [address] [place] [address]., [address] Mucous, ur Present(A) MARCELINO Comment:Testing performed by : [address] [address] Culture Reflex Comment Reflex to urine culture will be performed. MARCELINO Comment:Testing performed by : [address] [address] Urine 10/10/2024 4:16 PM FAMILY SUPPORT WORKER 10/10/2024 4:22 PM FAMILY SUPPORT WORKER us Iliana Erazo MD LAB URINE ORDERABLES F inal Result MARCELINO [address] [facility] Department [place] [address] * (ABNORMAL) Urine culture Urine (10/10/2024 4:16 PM FAMILY SUPPORT WORKER) Report Final Report: Greater than or equal to 100,000 colonies/mL of Escherichia coli Greater than or equal to 100,000 colonies/mL of Escherichia coli #2 (.) Comment:Testing performed by : [facility], [address] [place]., [address] Organism ESCHERICHIA COLI MARCELINO Organism ESCHERICHIA COLI MARCELINO Urine 10/10/2024 4:16 PM FAMILY SUPPORT WORKER 10/10/2024 7:55 PM FAMILY SUPPORT WORKER Narrative MARCELINO - 10/12/2024 2:17 PM FAMILY SUPPORT WORKER Urine culture reflexed based upon urinalysis results. Testing performed by [facility] Microbiology Laboratory ([phone]) Organism Antibiotic Method Susceptibility Escherichia coli Ampicillin [...] - GEN ERAL ORDERABLES Final Result MARCELINO [address] [facility] Department [place] [address] * CT Chest Abdomen Pelvis W Contrast (10/10/2024 3:34 PM FAMILY SUPPORT WORKER) Anatomical Region Laterality Modality Body N/A Computed Tomogra phy 10/10/2024 3:44 PM FAMILY SUPPORT WORKER Narrative 10/10/2024 4:29 PM FAMILY SUPPORT WORKER EXAM DESCRIPTION: CT CHEST ABDOMEN PELVIS W [...] Scott Shea M.D. JA: RAYA Report ID: [id number] Reading Location: [id number] Procedure Note Scott Shea MD - 10/10/2024 [...] Scott Shea M.D. JA: RAYA Report ID: [id number] Reading Location: [place] [address] us Iliana Erazo MD IMG CT PROCEDURES Gena l Result * (ABNORMAL) Troponin T high-sensitivity series (baseline, 2hr, 4hr, 6hr) (10/10/2024 2:54 PM FAMILY SUPPORT WORKER) [facility] Trop T hs 53(H) <=14 ng/L Comment: Interpretive Data For further hscTnT resources including the diagnostic algorithm and an aid in interpretation, copy and paste this link: https://nrl.testcatalog.org/show/hsTrop Current Interpretive Data last revised 2020. Testing performed by: [address] [address] Blood 10/10/2024 2:54 PM FAMILY SUPPORT WORKER 10/10/2024 3:07 PM FAMILY SUPPORT WORKER us Iliana Erazo MD LAB BLOOD ORDERABLES F inal Result [facility] [address] [facility] Department [place] [address] * (ABNORMAL) Influenza A/B, RSV, and COVID-19 PCR Nasopharyngeal (10/10/2024 2:54 PM FAMILY SUPPORT WORKER) [facility] COVID-19 RNA Negative Negative Comment:Testing performed by : [address] [address] Influenza A RNA Positive(A) Negative MARCELINO Comment:Testing performed by : [address] [address] Influenza B RNA Negative Negative MARCELINO Comment:Testing performed by : [address] [address] RSV RNA Negative Negative [facility] Comment: Interpretive data: Testing performed by [facility]. This test is performed using the [employer] Xpert Xpress CoV-2/Flu/RSV plus assay. This is a multiplex, real-time reverse transcriptase PCR assay intended for the qualitative detection of nucleic acid from SARS-CoV-2, influenza A, influenza B, and respiratory syncytial virus. This assay has been cleared by the [place] Food and Drug administration. The performance characteristics have been verified by the [facility]. Results must be considered in the clinical context, and a negative result does not rule out infection. Interpretive Data last revised 2023 Testing performed by: [address] [address] Nasopharyngeal 10/10/2024 2: 54 PM FAMILY SUPPORT WORKER 10/10/2024 3:08 PM FAMILY SUPPORT WORKER Narrative MARCELINO - 10/10/2024 3:56 PM FAMILY SUPPORT WORKER Is the Patient experiencing symptoms consistent with COVID?->Yes us Iliana Erazo MD LAB MICROBIOLOGY - GEN ERAL ORDERABLES Final Result Performing Organization Address City/[facility]/ZIP Co de Phone Number [place] [address] [facility] [place] [address] * Sepsis Lactate w/ Reflex (10/10/2024 2:54 PM FAMILY SUPPORT WORKER) Sepsis Lactate 1.9 0.7 - 2.0 mmol/L Comment:Testing performed by : [address] [address] Blood 10/10/2024 2:54 PM FAMILY SUPPORT WORKER 10/10/2024 3:07 PM FAMILY SUPPORT WORKER us Morgan Daly MD LAB BLOOD ORDERABLE S Final Result Performing Organization Address City/[facility]/ZIP Co de Phone Number [address] [employer] [address] * (ABNORMAL) Sepsis Lactate w/ Reflex (10/10/2024 12:10 PM FAMILY SUPPORT WORKER) Pathologist [facility] Sepsis Lactate 2.5(C) 0.7 - 2.0 mmol/L Comment: Critical Result called to and read back by [email or web address], DATE: 2024-10-10 13:23:42 BY: [id number] Testing performed by: [facility], [address] [place] [address]., [address] Blood 10/10/2024 12:1 0 PM FAMILY SUPPORT WORKER 10/10/2024 12:20 PM FAMILY SUPPORT WORKER us Iliana Erazo MD LAB BLOOD ORDERABLES F inal Result [place] [address] [facility] Department [place] [address] * (ABNORMAL) eGFR (10/10/2024 12:10 PM FAMILY SUPPORT WORKER) Pathologist [facility] eGFR 46(L) >=60 mL/min/1. 73 m2 Comment: [...] was last reviewed 2021. Testing performed by: [facility], [address] [place] [address]., [address] Blood 10/10/2024 12:1 0 PM FAMILY SUPPORT WORKER 10/10/2024 12:20 PM FAMILY SUPPORT WORKER us Iliana Erazo MD LAB BLOOD ORDERABLES F inal Result [facility] [address] [facility] Department [place] [address] * (ABNORMAL) Differential, auto (10/10/2024 12:10 PM FAMILY SUPPORT WORKER) Neutrophil abs 13.2(H) 1.5 - 6.5 K/cumm Comment:Testing performed by : [address] [address] Imm gran abs 0.2(H) 0.0 - 0.1 K/cumm MARCELINO Comment:Testing performed by : [address] [address] Lymphocyte abs 1.4 0.8 - 3.3 K/cumm MARCELINO Comment:Testing performed by : [address] [address] Monocyte abs 0.9(H) 0.2 - 0.8 K/cumm MARCELINO Comment:Testing performed by : [address] [address] Eosinophil abs 0.1 0.0 - 0.5 K/cumm MARCELINO Comment:Testing performed by : [address] [address] Basophil abs 0.0 0.0 - 0.1 K/cumm MARCELINO Comment:Testing performed by : [address] [address] Neutrophil pct 83.9 % MARCELINO Comment: Interpretive Data Percent cell count reference ranges are not reported, since discordance with absolute values may lead to misinterpretation of CBC data. Current Interpretive Data was last revised on 2017. Testing performed by: [address] [address] Imm gran pct 1.1 % MARCELINO Comment: Interpretive Data Percent cell count reference ranges are not reported, since discordance with absolute values may lead to misinterpretation of CBC data. Current Interpretive Data was last revised on 2017. Testing performed by: [address] [address] Lymphocyte pct 8.6 % [facility] Comment: Interpretive Data Percent cell count reference ranges are not reported, since discordance with absolute values may lead to misinterpretation of CBC data. Current Interpretive Data was last revised on 2017. Testing performed by: [address] [address] Monocyte pct 5.4 % [facility] Comment: Interpretive Data Percent cell count reference ranges are not reported, since discordance with absolute values may lead to misinterpretation of CBC data. Current Interpretive Data was last revised on 2017. Testing performed by: [address] [address] Eosinophil pct 0.7 % [facility] Comment: Interpretive Data Percent cell count reference ranges are not reported, since discordance with absolute values may lead to misinterpretation of CBC data. Current Interpretive Data was last revised on 2017. Testing performed by: [address] [address] Basophil pct 0.3 % [facility] Comment: Interpretive Data Percent cell count reference ranges are not reported, since discordance with absolute values may lead to misinterpretation of CBC data. Current Interpretive Data was last revised on 2017. Testing performed by: [address] [address] Blood 10/10/2024 12:1 0 PM FAMILY SUPPORT WORKER 10/10/2024 12:20 PM FAMILY SUPPORT WORKER us Iliana Erazo MD LAB BLOOD ORDERABLES F inal Result [facility] [address] [facility] Department [place] [address] * (ABNORMAL) CBC with auto differential (10/10/2024 12:10 PM FAMILY SUPPORT WORKER) WBC 15.7(H) 3.8 - 9.9 K/cumm Comment:Testing performed by : [address] [address] Hgb 12.7 11.9 - 15.5 g/dL MARCELINO Comment:Testing performed by : [address] [address] Hct 41.3 35.6 - 45.5 % MARCELINO Comment:Testing performed by : [address] [address] Plt 434(H) 150 - 400 K/cumm MARCELINO Comment:Testing performed by : [address] [address] MPV 10.0 9.1 - 12.3 fL MARCELINO Comment:Testing performed by : [address] [address] RBC 4.78 3.90 - 5.20 M/cumm MARCELINO Comment:Testing performed by : [address] [address] MCV 86.4 81.3 - 96.4 fL MARCELINO Comment:Testing performed by : [address] [address] MCH 26.6(L) 27.1 - 33.3 pg MARCELINO Comment:Testing performed by : [address] [address] MCHC 30.8(L) 32.3 - 35.7 g/dL MARCELINO Comment:Testing performed by : [address] [address] RDW CV 17.4(H) 11.1 - 14.9 % MARCELINO Comment:Testing performed by : [address] [address] RDW SD 54.4(H) 35.7 - 48.1 fL MARCELINO Comment:Testing performed by : [address] [address] NRBC abs 0.00 0.00 - 0.01 K/cumm MARCELINO Comment:Testing performed by : [address] [address] Blood 10/10/2024 12:1 0 PM FAMILY SUPPORT WORKER 10/10/2024 12:20 PM FAMILY SUPPORT WORKER us Iliana Erazo MD LAB BLOOD ORDERABLES F inal Result MARCELINO [address] [facility] Department [place] [address] * (ABNORMAL) Comprehensive metabolic panel (10/10/2024 12:10 PM FAMILY SUPPORT WORKER) Sodium 135 135 - 145 mmol/L Comment:Testing performed by : [address] [address] Potassium, pl 4.0 3.3 - 4.9 mmol/L MARCELINO Comment: Hemolyzed; Potassium value may be falsely elevated by as much as 1.0 mmol/L. Suggest redraw and reanalysis. Testing performed by: [address] [address] Chloride 96(L) 97 - 110 mmol/L MARCELINO Comment:Testing performed by : [address] [address] CO2 26 22 - 32 mmol/L MARCELINO Comment:Testing performed by : [address] [address] Anion gap 13 2 - 15 mmol/L MARCELINO Comment:Testing performed by : [address] [address] BUN 31(H) 6 - 25 mg/dL MARCELINO Comment:Testing performed by : [address] [address] Creatinine 1.17(H) 0.60 - 1.10 mg/dL MARCELINO Comment:Testing performed by : [address] [address] Glucose 234(H) 70 - 199 mg/dL MARCELINO Comment: Interpretive [...] was last revised 2022. Testing performed by: [address] [address] Calcium 10.6(H) 8.5 - 10.3 mg/dL MARCELINO Comment:Testing performed by : [address] [address] Bilirubin, total 0.5 0.1 - 1.2 mg/dL MARCELINO Comment:Testing performed by : [address] [address] Protein, pl 7.2 6.5 - 8.5 g/dL MARCELINO Comment:Testing performed by : [address] [address] Albumin 4.2 3.5 - 5.0 g/dL MARCELINO Comment:Testing performed by : [address] [address] Alk phos 101 40 - 130 Units/L MARCELINO Comment:Testing performed by : [address] [address] ALT 19 7 - 45 Units/L MARCELINO Comment:Testing performed by : [address] [address] AST 26 10 - 45 Units/L MARCELINO Comment: Hemolyzed; result may be falsely elevated Testing performed by: [address] [address] Blood 10/10/2024 12:1 0 PM FAMILY SUPPORT WORKER 10/10/2024 12:20 PM FAMILY SUPPORT WORKER us Iliana Erazo MD LAB BLOOD ORDERABLES F inal Result MARCELINO [address] [facility] Department [place] [address] * CT Head WO Contrast (10/10/2024 11:40 AM FAMILY SUPPORT WORKER) Anatomical Region Laterality Modality Head and Neck N/A Computed Tomogra phy 10/10/2024 12:1 8 PM FAMILY SUPPORT WORKER Narrative 10/10/2024 12:23 PM FAMILY SUPPORT WORKER EXAM DESCRIPTION: CT HEAD WO CONTRAST REASON [...] Mitchell Gardiner M.D. NS: NS Report ID: [id number] Reading Location: [id number] Procedure Note Mitchell Gardiner MD - 10/10/2024 [...] Mitchell Gardiner M.D. NS: NS Report ID: [id number] Reading Location: [id number] Carrie MEANS [facility] PROCEDURES Final Result * XR Chest 1 Vw Portable (if patient condition/safety warrant portable) (10/10/2024 11:25 AM FAMILY SUPPORT WORKER) Anatomical Region Laterality Modality Body, Chest N/A Computed Radiogr aphy 10/10/2024 11:4 0 AM FAMILY SUPPORT WORKER Narrative 10/10/2024 11:45 AM FAMILY SUPPORT WORKER EXAM DESCRIPTION: XR CHEST 1 VIEW REASON [...] Mitchell Gardiner M.D. NS: NS Report ID: [id number] Reading Location: [id number] Procedure Note Mitchell Gardiner MD - 10/10/2024 [...] Mitchell Gardiner M.D. NS: NS Report ID: [id number] Reading Location: [id number] us Iliana Erazo MD IMG XR PROCEDURES Gena l Result * ECG 12 lead (10/10/2024 11:02 AM FAMILY SUPPORT WORKER) [facility] Ventricular Rate EKG/Min 99 BPM [facility] Atrial Rate 99 BPM [facility] OH-Interval (MSEC) 156 ms [facility] QRS-Interval (MSEC) 90 ms [facility] QT-Interval (MSEC) 364 ms [facility] QTc 467 ms [facility] P [place] 63 degrees [facility] R [place] -25 degrees [facility] T [place] 130 degrees [facility] Diagnosis Normal sinus rhythm Voltage criteria for left ventricular hypertrophy 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 ([id number]) on 10/10/2024 11:04:14 PM [facility] 10/10/2024 11:0 2 AM FAMILY SUPPORT WORKER 10/10/2024 11:04 PM FAMILY SUPPORT WORKER us Iliana Erazo MD ECG ORDERABLES Final Result [facility] * (ABNORMAL) POCT glucose (10/10/2024 10:38 AM FAMILY SUPPORT WORKER) Glucose, POC 232(H) 70 - 199 mg/dL Comment:Testing performed by : [address] [address] Glucose comment 1 Use This Result MARCELINO HAYWOOD Comment:Testing performed by : [address] [address] Blood 10/10/2024 10:3 8 AM FAMILY SUPPORT WORKER 10/10/2024 10:38 AM FAMILY SUPPORT WORKER Notinfile Unknown LAB POCT ORDERABLES - DEVICE F inal Result Performing Organization Address [facility] Co de Phone Number MARCELINO [address] [place] [address] * POCT glucose (10/08/2024 11:13 AM FAMILY SUPPORT WORKER) Glucose, POC 177 70 - 199 mg/dL Glucose comment 1 Use This Result [facility] Glucose comment 2 RN/MD Notified [facility] Blood 10/08/2024 11:1 3 AM FAMILY SUPPORT WORKER 10/08/2024 11:13 AM FAMILY SUPPORT WORKER Eddie Montoya MD LAB POCT ORDERABLES - DE VICE Final Result Performing Organization Address [facility] Co de Phone Number MARCELINO [address] [place] [address] * POCT glucose (10/08/2024 8:49 AM FAMILY SUPPORT WORKER) Glucose, POC 107 70 - 199 mg/dL Blood 10/08/2024 8:49 AM FAMILY SUPPORT WORKER 10/08/2024 8:49 AM FAMILY SUPPORT WORKER Eddie Montoya MD LAB POCT ORDERABLES - DE VICE Final Result Performing Organization Address [facility] Phone Number MARCELINO [address] [place] [address] * (ABNORMAL) POCT glucose (10/07/2024 7:26 PM FAMILY SUPPORT WORKER) Glucose, POC 285(H) 70 - 199 mg/dL Glucose comment 1 Use This Result [facility] Glucose comment 2 RN/MD Notified MARCELINO Blood 10/07/2024 7:26 PM FAMILY SUPPORT WORKER 10/07/2024 7:26 PM FAMILY SUPPORT WORKER Eddie Montoya MD LAB POCT ORDERABLES - DE VICE Final Result Performing Organization Address [facility] Co de Phone Number MARCELINO [address] [address] * (ABNORMAL) POCT glucose (10/07/2024 4:03 PM FAMILY SUPPORT WORKER) Glucose, POC 242(H) 70 - 199 mg/dL Glucose comment 1 Use This Result [facility] Glucose comment 2 RN/MD Notified [facility] Blood 10/07/2024 4:03 PM FAMILY SUPPORT WORKER 10/07/2024 4:03 PM FAMILY SUPPORT WORKER us Eddie Montoya MD LAB POCT ORDERABLES - DE VICE Final Result Performing Organization Address [facility] Co de Phone Number MARCELINO [address] [address] * POCT glucose (10/07/2024 11:23 AM FAMILY SUPPORT WORKER) Glucose, POC 170 70 - 199 mg/dL Glucose comment 1 Use This Result [facility] Glucose comment 2 RN/ Notified MARCELINO Blood 10/07/2024 11:2 3 AM FAMILY SUPPORT WORKER 10/07/2024 11:23 AM FAMILY SUPPORT WORKER us Eddie Montoya MD LAB POCT ORDERABLES - DE VICE Final Result Performing Organization Address [facility] Co de Phone Number MARCELINO [address] [place] [address] * POCT glucose (10/07/2024 7:19 AM FAMILY SUPPORT WORKER) Glucose, POC 107 70 - 199 mg/dL Glucose comment 1 Use This Result [facility] Glucose comment 2 RN/ Notified MARCELINO Blood 10/07/2024 7:19 AM FAMILY SUPPORT WORKER 10/07/2024 7:19 AM FAMILY SUPPORT WORKER us Eddie Montoya MD LAB POCT ORDERABLES - DE VICE Final Result Performing Organization Address City/[facility] Co de Phone Number MARCELINO [address] [address] * (ABNORMAL) POCT glucose (10/06/2024 8:43 PM FAMILY SUPPORT WORKER) Glucose, POC 216(H) 70 - 199 mg/dL Glucose comment 1 Use This Result [facility] Glucose comment 2 RN/MD Notified MARCELINO Blood 10/06/2024 8:43 PM FAMILY SUPPORT WORKER 10/06/2024 8:43 PM FAMILY SUPPORT WORKER Eddie Montoya MD LAB POCT ORDERABLES - DE VICE Final Result Performing Organization Address [facility] Co de Phone Number MARCELINO [address] [address] * (ABNORMAL) POCT glucose (10/06/2024 4:13 PM FAMILY SUPPORT WORKER) Glucose, POC 237(H) 70 - 199 mg/dL Glucose comment 1 Use This Result [facility] Glucose comment 2 RN/ Notified MARCELINO Blood 10/06/2024 4:13 PM FAMILY SUPPORT WORKER 10/06/2024 4:13 PM FAMILY SUPPORT WORKER us Eddie Montoya MD LAB POCT ORDERABLES - DE VICE Final Result Performing Organization Address [facility] Co de Phone Number MARCELINO [address] [address] * (ABNORMAL) POCT glucose (10/06/2024 11:39 AM FAMILY SUPPORT WORKER) Glucose, POC 245(H) 70 - 199 mg/dL Glucose comment 1 Use This Result [facility] Glucose comment 2 RN/ Notified MARCELINO Blood 10/06/2024 11:3 9 AM FAMILY SUPPORT WORKER 10/06/2024 11:39 AM FAMILY SUPPORT WORKER Eddie Montoya MD LAB POCT ORDERABLES - DE VICE Final Result Performing Organization Address [facility] de Phone Number MARCELINO [address] [address] * POCT glucose (10/06/2024 7:33 AM FAMILY SUPPORT WORKER) Glucose, POC 104 70 - 199 mg/dL Glucose comment 1 Use This Result [facility] Glucose comment 2 RN/MD Notified [facility] Blood 10/06/2024 7:33 AM FAMILY SUPPORT WORKER 10/06/2024 7:33 AM FAMILY SUPPORT WORKER us Eddie Montoya MD LAB POCT ORDERABLES - DE VICE Final Result Performing Organization Address [facility] de Phone Number MARCELINO [address] [address] * (ABNORMAL) POCT glucose (10/05/2024 7:48 PM FAMILY SUPPORT WORKER) Glucose, POC 227(H) 70 - 199 mg/dL Glucose comment 1 Use This Result [facility] Glucose comment 2 RN/ Notified MARCELINO Blood 10/05/2024 7:48 PM FAMILY SUPPORT WORKER 10/05/2024 7:48 PM FAMILY SUPPORT WORKER us Eddie Montoya MD LAB POCT ORDERABLES - DE VICE Final Result Performing Organization Address [facility] de Phone Number MARCELINO [address] [address] * (ABNORMAL) POCT glucose (10/05/2024 3:29 PM FAMILY SUPPORT WORKER) Glucose, POC 256(H) 70 - 199 mg/dL Glucose comment 1 Use This Result [facility] Glucose comment 2 RN/ Notified [facility] Blood 10/05/2024 3:29 PM FAMILY SUPPORT WORKER 10/05/2024 3:29 PM FAMILY SUPPORT WORKER us Eddie Montoya MD LAB POCT ORDERABLES - DE VICE Final Result Performing Organization Address [facility] Co de Phone Number MARCELINO [address] [place] [address] * POCT glucose (10/05/2024 11:29 AM FAMILY SUPPORT WORKER) Glucose, POC 132 70 - 199 mg/dL Glucose comment 1 Use This Result MARCELINO Glucose comment 2 RN/MD Notified MARCELINO Blood 10/05/2024 11:2 9 AM FAMILY SUPPORT WORKER 10/05/2024 11:29 AM FAMILY SUPPORT WORKER us Eddie Montoya MD LAB POCT ORDERABLES - DE VICE Final Result Performing Organization Address [facility] Co de Phone Number MARCELINO [address] [place] [address] * POCT glucose (10/05/2024 7:29 AM FAMILY SUPPORT WORKER) Glucose, POC 93 70 - 199 mg/dL Glucose comment 1 Use This Result MARCELINO Glucose comment 2 RN/ Notified MARCELINO Blood 10/05/2024 7:29 AM FAMILY SUPPORT WORKER 10/05/2024 7:29 AM FAMILY SUPPORT WORKER us Eddie Montoya MD LAB POCT ORDERABLES - DE VICE Final Result Performing Organization Address [facility] Co de Phone Number MARCELINO [address] [place] [address] * POCT glucose (10/04/2024 8:48 PM FAMILY SUPPORT WORKER) Glucose, POC 198 70 - 199 mg/dL Glucose comment 1 Use This Result MARCELINO Glucose comment 2 RN/ Notified MARCELINO Blood 10/04/2024 8:48 PM FAMILY SUPPORT WORKER 10/04/2024 8:48 PM FAMILY SUPPORT WORKER Eddie Montoya MD LAB POCT ORDERABLES - DE VICE Final Result Performing Organization Address [facility]/ZIP Co de Phone Number MARCELINO [address] [place] [address] * (ABNORMAL) POCT glucose (10/04/2024 5:36 PM FAMILY SUPPORT WORKER) Glucose, POC 273(H) 70 - 199 mg/dL Blood 10/04/2024 5:36 PM FAMILY SUPPORT WORKER 10/04/2024 5:36 PM FAMILY SUPPORT WORKER Eddie Montoya MD LAB POCT ORDERABLES - DE VICE Final Result [address] [address] * (ABNORMAL) POCT glucose (10/04/2024 3:37 PM FAMILY SUPPORT WORKER) Glucose, POC 260(H) 70 - 199 mg/dL Glucose comment 1 Use This Result [facility] Glucose comment 2 RN/MD Notified [facility] Blood 10/04/2024 3:37 PM FAMILY SUPPORT WORKER 10/04/2024 3:37 PM FAMILY SUPPORT WORKER Eddie Montoya MD LAB POCT ORDERABLES - DE VICE Final Result Performing Organization Address City/[facility]/ZIP Co de Phone Number [address] [place] [address] * (ABNORMAL) POCT glucose (10/04/2024 11:20 AM FAMILY SUPPORT WORKER) Glucose, POC 228(H) 70 - 199 mg/dL Glucose comment 1 Use This Result [facility] Glucose comment 2 RN/MD Notified [facility] Blood 10/04/2024 11:2 0 AM FAMILY SUPPORT WORKER 10/04/2024 11:20 AM FAMILY SUPPORT WORKER Result [facility] Eddie Montoya MD LAB POCT ORDERABLES - DE VICE Final Result Performing Organization Address City/[facility]/ZIP Co de Phone Number [address] [address] * POCT glucose (10/04/2024 7:24 AM FAMILY SUPPORT WORKER) Glucose, POC 95 70 - 199 mg/dL Glucose comment 1 Use This Result MARCELINO Glucose comment 2 RN/MD Notified MARCELINO Blood 10/04/2024 7:24 AM FAMILY SUPPORT WORKER 10/04/2024 7:24 AM FAMILY SUPPORT WORKER Eddie Montoya MD LAB POCT ORDERABLES - DE VICE Final Result Performing Organization Address [facility] Co de Phone Number ORLIN[address] [place] [address] * eGFR (10/04/2024 5:02 AM FAMILY SUPPORT WORKER) eGFR 63 >=60 mL/min/1. 73 m2 Comment: [...] last reviewed 2021. Blood 10/04/2024 5:02 AM FAMILY SUPPORT WORKER 10/04/2024 5:36 AM FAMILY SUPPORT WORKER Eddie Montoya MD LAB BLOOD ORDERABLES Fin al Result Performing Organization Address City/[facility]/ZIP Co de Phone Number [place] [phone] [facility] [employer] [address] * Differential, auto (10/04/2024 5:02 AM FAMILY SUPPORT WORKER) Pathologist [facility] Neutrophil abs 3.2 1.5 - 6.5 K/cumm Imm gran abs 0.0 0.0 - 0.1 K/cumm [facility] Lymphocyte abs 1.1 0.8 - 3.3 K/cumm [facility] Monocyte abs 0.5 0.2 - 0.8 K/cumm [facility] Eosinophil abs 0.0 0.0 - 0.5 K/cumm [facility] Basophil abs 0.0 0.0 - 0.1 K/cumm [facility] Neutrophil pct 65.6 % [facility] Comment: Interpretive Data Percent cell count reference ranges are not reported, since discordance with absolute values may lead to misinterpretation of CBC data. Current Interpretive Data was last revised on 2017. Imm gran pct 0.8 % [facility] Comment: Interpretive Data Percent cell count reference ranges are not reported, since discordance with absolute values may lead to misinterpretation of CBC data. Current Interpretive Data was last revised on 2017. Lymphocyte pct 22.3 % [facility] Comment: Interpretive Data Percent cell count reference ranges are not reported, since discordance with absolute values may lead to misinterpretation of CBC data. Current Interpretive Data was last revised on 2017. Monocyte pct 10.3 % [facility] Comment: Interpretive Data Percent cell count reference ranges are not reported, since discordance with absolute values may lead to misinterpretation of CBC data. Current Interpretive Data was last revised on 2017. Eosinophil pct 0.6 % [facility] Comment: Interpretive Data Percent cell count reference ranges are not reported, since discordance with absolute values may lead to misinterpretation of CBC data. Current Interpretive Data was last revised on 2017. Basophil pct 0.4 % [facility] Comment: Interpretive Data Percent cell count reference ranges are not reported, since discordance with absolute values may lead to misinterpretation of CBC data. Current Interpretive Data was last revised on 2017. Blood 10/04/2024 5:02 AM FAMILY SUPPORT WORKER 10/04/2024 5:36 AM FAMILY SUPPORT WORKER Eddie Montoya MD LAB BLOOD ORDERABLES Fin al Result Performing Organization Address [facility] de Phone Number [address] [address] * (ABNORMAL) CBC with auto differential (10/04/2024 5:02 AM FAMILY SUPPORT WORKER) [facility] WBC 4.9 3.8 - 9.9 K/cumm Hgb 12.5 11.9 - 15.5 g/dL [facility] Hct 41.8 35.6 - 45.5 % [facility] Plt 286 150 - 400 K/cumm [facility] MPV 9.8 9.1 - 12.3 fL [facility] RBC 4.74 3.90 - 5.20 M/cumm [facility] MCV 88.2 81.3 - 96.4 fL [facility] MCH 26.4(L) 27.1 - 33.3 pg [facility] MCHC 29.9(L) 32.3 - 35.7 g/dL [facility] RDW CV 16.7(H) 11.1 - 14.9 % [facility] RDW SD 54.0(H) 35.7 - 48.1 fL [facility] NRBC abs 0.00 0.00 - 0.01 K/cumm [facility] Blood 10/04/2024 5:02 AM FAMILY SUPPORT WORKER 10/04/2024 5:36 AM FAMILY SUPPORT WORKER Eddie Montoya MD LAB BLOOD ORDERABLES Fin al Result Performing Organization Address [facility] Co de Phone Number [address] [place] [address] * Basic metabolic panel (10/04/2024 5:02 AM FAMILY SUPPORT WORKER) [facility] Sodium 136 135 - 145 mmol/L Potassium, pl 3.3 3.3 - 4.9 mmol/L [facility] Chloride 100 97 - 110 mmol/L [facility] CO2 23 22 - 32 mmol/L [facility] Anion gap 13 2 - 15 mmol/L [facility] BUN 22 6 - 25 mg/dL [facility] Creatinine 0.90 0.60 - 1.10 mg/dL [facility] Glucose 94 70 - 199 mg/dL [facility] Comment: Interpretive Data Fasting glucose >/= [...] 2022. Calcium 9.8 8.5 - 10.3 mg/dL [facility] Blood 10/04/2024 5:02 AM FAMILY SUPPORT WORKER 10/04/2024 5:36 AM FAMILY SUPPORT WORKER Eddie Montoya MD LAB BLOOD ORDERABLES Fin al Result Performing Organization Address City/[facility]/ZIP Co de Phone Number [address] [place] [address] * (ABNORMAL) POCT glucose (10/03/2024 7:27 PM FAMILY SUPPORT WORKER) Glucose, POC 215(H) 70 - 199 mg/dL Glucose comment 1 Use This Result [facility] Glucose comment 2 RN/ Notified [facility] Blood 10/03/2024 7:27 PM FAMILY SUPPORT WORKER 10/03/2024 7:27 PM FAMILY SUPPORT WORKER Eddie Montoya MD LAB POCT ORDERABLES - DE VICE Final Result Performing Organization Address [facility] Co de Phone Number [address] [employer] [address] * POCT glucose (10/03/2024 4:19 PM FAMILY SUPPORT WORKER) Glucose, POC 196 70 - 199 mg/dL Glucose comment 1 Use This Result [facility] Glucose comment 2 RN/ Notified [facility] Blood 10/03/2024 4:19 PM FAMILY SUPPORT WORKER 10/03/2024 4:19 PM FAMILY SUPPORT WORKER Eddie Montoya MD LAB POCT ORDERABLES - DE VICE Final Result MARCELINO [facility] [address] * POCT glucose (10/03/2024 11:26 AM FAMILY SUPPORT WORKER) Glucose, POC 164 70 - 199 mg/dL Glucose comment 1 Use This Result [facility] Glucose comment 2 RN/MD Notified [facility] Blood 10/03/2024 11:2 6 AM FAMILY SUPPORT WORKER 10/03/2024 11:26 AM FAMILY SUPPORT WORKER Eddie Montoya MD LAB POCT ORDERABLES - DE VICE Final Result Performing Organization Address City/[facility] Co de Phone Number MARCELINO [address] [address] * eGFR (10/03/2024 11:17 AM FAMILY SUPPORT WORKER) eGFR 67 >=60 mL/min/1. 73 m2 Comment: [...] reviewed 2021. Blood 10/03/2024 11:1 7 AM FAMILY SUPPORT WORKER 10/03/2024 11:23 AM FAMILY SUPPORT WORKER us Simi Parker LAB BLOOD ORDERABLES Final Resul t MARCELINO [address] [facility] Department [place] [address] * (ABNORMAL) Comprehensive metabolic panel (10/03/2024 11:17 AM FAMILY SUPPORT WORKER) Sodium 131(L) 135 - 145 mmol/L Potassium, pl 4.1 3.3 - 4.9 mmol/L [facility] Comment:Hemolyzed; Potassium value may be falsely elevated by as much as 1.0 mmol/L. Suggest redraw and reanalysis. Chloride 99 97 - 110 mmol/L [facility] CO2 20(L) 22 - 32 mmol/L [facility] Anion gap 12 2 - 15 mmol/L [facility] BUN 23 6 - 25 mg/dL [facility] Creatinine 0.86 0.60 - 1.10 mg/dL [facility] Glucose 170 70 - 199 mg/dL [facility] Comment: Interpretive Data Fasting glucose >/= [...] 2022. Calcium 9.7 8.5 - 10.3 mg/dL [facility] Bilirubin, total 0.4 0.1 - 1.2 mg/dL [facility] Protein, pl 6.2(L) 6.5 - 8.5 g/dL [facility] Albumin 3.1(L) 3.5 - 5.0 g/dL [facility] Alk phos 75 40 - 130 Units/L [facility] ALT 12 7 - 45 Units/L [facility] AST 35 10 - 45 Units/L [facility] Comment:Hemolyzed; result ma y be falsely elevated Blood 10/03/2024 11:1 7 AM FAMILY SUPPORT WORKER 10/03/2024 11:23 AM FAMILY SUPPORT WORKER Sa Parker DO LAB BLOOD ORDERABLES Final Resul t Performing Organization Address [facility] Co de Phone Number MARCELINO [address] [place] [address] * POCT glucose (10/03/2024 7:33 AM FAMILY SUPPORT WORKER) Glucose, POC 101 70 - 199 mg/dL Glucose comment 1 Use This Result [facility] Blood 10/03/2024 7:33 AM FAMILY SUPPORT WORKER 10/03/2024 7:33 AM FAMILY SUPPORT WORKER Eddie Montoya MD LAB POCT ORDERABLES - DE VICE Final Result Performing Organization Address [facility] Co de Phone Number ORLIN[address] [place] [address] * POCT glucose (10/02/2024 11:19 PM FAMILY SUPPORT WORKER) Glucose, POC 146 70 - 199 mg/dL Glucose comment 1 Use This Result MARCELINO Blood 10/02/2024 11:1 9 PM FAMILY SUPPORT WORKER 10/02/2024 11:19 PM FAMILY SUPPORT WORKER [email or web address] DO LAB POCT ORDERABLES - DEVICE Fin al Result Performing Organization Address [facility] Co de Phone Number [address] [address] * POCT glucose (10/02/2024 7:41 PM FAMILY SUPPORT WORKER) Glucose, POC 191 70 - 199 mg/dL Glucose comment 1 Use This Result [facility] Blood 10/02/2024 7:41 PM FAMILY SUPPORT WORKER 10/02/2024 7:41 PM FAMILY SUPPORT WORKER Saim Parker DO LAB POCT ORDERABLES - DEVICE Fin al Result Performing Organization Address [facility] Co de Phone Number ORLIN[address] [place] [address] * (ABNORMAL) POCT glucose (10/02/2024 4:58 PM FAMILY SUPPORT WORKER) Glucose, POC 223(H) 70 - 199 mg/dL Blood 10/02/2024 4:58 PM FAMILY SUPPORT WORKER 10/02/2024 4:58 PM FAMILY SUPPORT WORKER Saim Parker DO LAB POCT ORDERABLES - DEVICE Fin al Result Performing Organization Address [facility] Co de Phone Number [address] [place] [address] * POCT glucose (10/02/2024 11:43 AM FAMILY SUPPORT WORKER) Glucose, POC 152 70 - 199 mg/dL Blood 10/02/2024 11:4 3 AM FAMILY SUPPORT WORKER 10/02/2024 11:43 AM FAMILY SUPPORT WORKER Saim Parker DO LAB POCT ORDERABLES - DEVICE Fin al Result Performing Organization Address [facility] Co de Phone Number [address] [place] [address] * POCT glucose (10/02/2024 7:28 AM FAMILY SUPPORT WORKER) Glucose, POC 126 70 - 199 mg/dL Blood 10/02/2024 7:28 AM FAMILY SUPPORT WORKER 10/02/2024 7:28 AM FAMILY SUPPORT WORKER Saim Parker DO LAB POCT ORDERABLES - DEVICE Fin al Result Performing Organization Address [facility] Co de Phone Number [address] [place] [address] * eGFR (10/02/2024 3:50 AM FAMILY SUPPORT WORKER) eGFR 67 >=60 mL/min/1. 73 m2 Comment: [...] last reviewed 2021. Blood 10/02/2024 3:50 AM FAMILY SUPPORT WORKER 10/02/2024 3:54 AM FAMILY SUPPORT WORKER us Saim Parker DO LAB BLOOD ORDERABLES Final Resul t MARCELINO [address] [facility] Department [place] [address] * (ABNORMAL) Differential, auto (10/02/2024 3:50 AM FAMILY SUPPORT WORKER) Pathologist [facility] Neutrophil abs 5.1 1.5 - 6.5 K/cumm Imm gran abs 0.0 0.0 - 0.1 K/cumm [facility] Lymphocyte abs 0.8 0.8 - 3.3 K/cumm [facility] Monocyte abs 1.3(H) 0.2 - 0.8 K/cumm [facility] Eosinophil abs 0.0 0.0 - 0.5 K/cumm [facility] Basophil abs 0.0 0.0 - 0.1 K/cumm [facility] Neutrophil pct 69.6 % [facility] Comment: Interpretive Data Percent cell count reference ranges are not reported, since discordance with absolute values may lead to misinterpretation of CBC data. Current Interpretive Data was last revised on 2017. Imm gran pct 0.5 % [facility] Comment: Interpretive Data Percent cell count reference ranges are not reported, since discordance with absolute values may lead to misinterpretation of CBC data. Current Interpretive Data was last revised on 2017. Lymphocyte pct 11.4 % [facility] Comment: Interpretive Data Percent cell count reference ranges are not reported, since discordance with absolute values may lead to misinterpretation of CBC data. Current Interpretive Data was last revised on 2017. Monocyte pct 17.9 % [facility] Comment: Interpretive Data Percent cell count reference ranges are not reported, since discordance with absolute values may lead to misinterpretation of CBC data. Current Interpretive Data was last revised on 2017. Eosinophil pct 0.3 % [facility] Comment: Interpretive Data Percent cell count reference ranges are not reported, since discordance with absolute values may lead to misinterpretation of CBC data. Current Interpretive Data was last revised on 2017. Basophil pct 0.3 % [facility] Comment: Interpretive Data Percent cell count reference ranges are not reported, since discordance with absolute values may lead to misinterpretation of CBC data. Current Interpretive Data was last revised on 2017. Blood 10/02/2024 3:50 AM FAMILY SUPPORT WORKER 10/02/2024 3:55 AM FAMILY SUPPORT WORKER us Saim Parker DO LAB BLOOD ORDERABLES Final Resul t [facility] [address] [facility] Department [place] [address] * (ABNORMAL) CBC with auto differential (10/02/2024 3:50 AM FAMILY SUPPORT WORKER) WBC 7.4 3.8 - 9.9 K/cumm Hgb 12.3 11.9 - 15.5 g/dL [facility] Hct 42.6 35.6 - 45.5 % [facility] Plt 242 150 - 400 K/cumm [facility] MPV 9.5 9.1 - 12.3 fL [facility] RBC 4.68 3.90 - 5.20 M/cumm [facility] MCV 91.0 81.3 - 96.4 fL [facility] MCH 26.3(L) 27.1 - 33.3 pg [facility] MCHC 28.9(L) 32.3 - 35.7 g/dL [facility] RDW CV 17.2(H) 11.1 - 14.9 % [facility] RDW SD 57.1(H) 35.7 - 48.1 fL [facility] NRBC abs 0.00 0.00 - 0.01 K/cumm [facility] Blood 10/02/2024 3:50 AM FAMILY SUPPORT WORKER 10/02/2024 3:55 AM FAMILY SUPPORT WORKER us Simi Parker DO LAB BLOOD ORDERABLES Final Resul t [facility] [address] [facility] Department [place] [address] * (ABNORMAL) Comprehensive metabolic panel (10/02/2024 3:50 AM FAMILY SUPPORT WORKER) Sodium 134(L) 135 - 145 mmol/L Potassium, pl 3.8 3.3 - 4.9 mmol/L [facility] Comment:Hemolyzed; Potassium value may be falsely elevated by as much as 1.0 mmol/L. Suggest redraw and reanalysis. Chloride 97 97 - 110 mmol/L [facility] CO2 25 22 - 32 mmol/L [facility] Anion gap 12 2 - 15 mmol/L [facility] BUN 13 6 - 25 mg/dL [facility] Creatinine 0.86 0.60 - 1.10 mg/dL [facility] Glucose 129 70 - 199 mg/dL [facility] Comment: Interpretive Data Fasting glucose >/= [...] 2022. Calcium 9.8 8.5 - 10.3 mg/dL [facility] Bilirubin, total 0.3 0.1 - 1.2 mg/dL [facility] Protein, pl 6.1(L) 6.5 - 8.5 g/dL [facility] Albumin 3.3(L) 3.5 - 5.0 g/dL [facility] Alk phos 77 40 - 130 Units/L [facility] ALT 9 7 - 45 Units/L [facility] AST 23 10 - 45 Units/L [facility] Comment:Hemolyzed; result ma y be falsely elevated Blood 10/02/2024 3:50 AM FAMILY SUPPORT WORKER 10/02/2024 3:54 AM FAMILY SUPPORT WORKER Sa Parker DO LAB BLOOD ORDERABLES Final Resul t Performing Organization Address City/[facility]/ZIP Co de Phone Number MARCELINO [address] [place] [address] * POCT glucose (10/01/2024 8:27 PM FAMILY SUPPORT WORKER) [facility] Glucose, POC 146 70 - 199 mg/dL Glucose comment 1 Use This Result [facility] Blood 10/01/2024 8:27 PM FAMILY SUPPORT WORKER 10/01/2024 8:27 PM FAMILY SUPPORT WORKER [employer] LAB POCT ORDERABLES - DEVICE Fin al Result Performing Organization Address [facility] Co de Phone Number [address] [address] * (ABNORMAL) Troponin T high-sensitivity (10/01/2024 5:03 PM FAMILY SUPPORT WORKER) Trop T hs 124(H) <=14 ng/L Comment: Interpretive Data For further hscTnT resources including the diagnostic algorithm and an aid in interpretation, copy and paste this link: [email or web address].testcatalog.org/show/[email or web address] Current Interpretive Data last revised 2020. Blood 10/01/2024 5:03 PM FAMILY SUPPORT WORKER 10/01/2024 5:29 PM FAMILY SUPPORT WORKER [facility] Parker DO LAB BLOOD ORDERABLES Final Resul t Performing Organization Address [facility] Co de Phone Number MARCELINO [address] [place] [address] * POCT glucose (10/01/2024 4:46 PM FAMILY SUPPORT WORKER) Pathologist [facility] Glucose, POC 135 70 - 199 mg/dL Glucose comment 1 Use This Result [facility] Glucose comment 2 RN/MD Notified [facility] Blood 10/01/2024 4:46 PM FAMILY SUPPORT WORKER 10/01/2024 4:46 PM FAMILY SUPPORT WORKER [facility] Parker DO LAB POCT ORDERABLES - DEVICE Fin al Result Performing Organization Address [facility] de Phone Number [address] [address] * (ABNORMAL) Troponin T high-sensitivity (10/01/2024 1:59 PM FAMILY SUPPORT WORKER) Pathologist [facility] Trop T hs 140(H) <=14 ng/L Comment: Interpretive Data For further hscTnT resources including the diagnostic algorithm and an aid in interpretation, copy and paste this link: [email or web address] Current Interpretive Data last revised 2020. Blood 10/01/2024 1:59 PM FAMILY SUPPORT WORKER 10/01/2024 2:04 PM FAMILY SUPPORT WORKER [facility] Parker DO LAB BLOOD ORDERABLES Final Resul t Performing Organization Address [facility] Co de Phone Number [address] [place] [address] * Sepsis Lactate w/ Reflex (10/01/2024 1:59 PM FAMILY SUPPORT WORKER) Sepsis Lactate 0.7 0.7 - 2.0 mmol/L Blood 10/01/2024 1:59 PM FAMILY SUPPORT WORKER 10/01/2024 2:04 PM FAMILY SUPPORT WORKER Saim Parker DO LAB BLOOD ORDERABLES Final Resul t Performing Organization Address [facility] Co de Phone Number [facility]INO [facility] [place] [address] * Ammonia (10/01/2024 1:59 PM FAMILY SUPPORT WORKER) Ammonia 23 <=50 mcmol/L Comment: Please note on 01/05/2024 the unit of measure changed from mcg/dL to mcmol/L. Current Interpretive Data was last revised on 2024. Blood 10/01/2024 1:59 PM FAMILY SUPPORT WORKER 10/01/2024 2:04 PM FAMILY SUPPORT WORKER Saim Parker DO LAB BLOOD ORDERABLES Final Resul t Performing Organization Address [facility] de Phone Number [facility]INO [facility] [place] [address] * ECG 12 lead (10/01/2024 1:05 PM FAMILY SUPPORT WORKER) Ventricular Rate EKG/Min 86 BPM [facility] Atrial Rate 86 BPM [facility] [place]-Interval (MSEC) 164 ms [facility] QRS-Interval (MSEC) 98 ms [facility] QT-Interval (MSEC) 396 ms [facility] QTc 473 ms [facility] P [place] 35 degrees [facility] R [place] -21 degrees [facility] T [place] 106 degrees [facility] Diagnosis Normal sinus rhythm Moderate voltage criteria for LVH, may be normal variant ( R in aVL , [place] product ) 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 ([id number]) on 10/02/2024 10:02:07 PM [facility] 10/01/2024 1:05 PM FAMILY SUPPORT WORKER 10/02/2024 10:02 PM FAMILY SUPPORT WORKER us Saim Parker DO ECG ORDERABLES Final Result [facility] * POCT glucose (10/01/2024 12:08 PM FAMILY SUPPORT WORKER) Glucose, POC 155 70 - 199 mg/dL Blood 10/01/2024 12:0 8 PM FAMILY SUPPORT WORKER 10/01/2024 12:08 PM FAMILY SUPPORT WORKER us Saim Parker DO LAB POCT ORDERABLES - DEVICE Fin al Result [facility] Department [place] [address] * CTA Head Neck W WO Contrast (10/01/2024 11:35 AM FAMILY SUPPORT WORKER) Anatomical Region Laterality Modality Head and Neck N/A Computed Tomogra phy 10/01/2024 11:5 1 AM FAMILY SUPPORT WORKER Narrative 10/01/2024 12:15 PM FAMILY SUPPORT WORKER EXAM DESCRIPTION: CTA HEAD NECK W WO [...] temporomandibular joint osteoarthritis is present INTRACRANIAL VESSELS [place]: The anterior, middle, posterior cerebral [...] 12:15 PM - Electronically signed by Audi Rodriguez M.D. MZ T: Report ID: [id number] Reading Location: [id number] Procedure Note Audi Rodriguez MD - 10/01/2024 [...] temporomandibular joint osteoarthritis is present INTRACRANIAL VESSELS [place]: The anterior, middle, posterior cerebral [...] signed by Audi PRUITT T: Report ID: [id number] Reading Location: [place] [address] us Saim Parker DO IMG CT PROCEDURES Final Result * POCT glucose (10/01/2024 10:52 AM FAMILY SUPPORT WORKER) [facility] Signature Glucose, POC 154 70 - 199 mg/dL Blood 10/01/2024 10:5 2 AM FAMILY SUPPORT WORKER 10/01/2024 10:52 AM FAMILY SUPPORT WORKER us Simi Parker DO LAB POCT ORDERABLES - DEVICE Fin al Result MARCELINO [address] [facility] Department [place] [address] * CT Stroke Head WO Contrast (10/01/2024 10:39 AM FAMILY SUPPORT WORKER) Anatomical Region Laterality Modality Head N/A Computed Tomogra phy 10/01/2024 10:4 6 AM FAMILY SUPPORT WORKER Narrative 10/01/2024 10:56 AM FAMILY SUPPORT WORKER EXAM DESCRIPTION: CT STROKE HEAD WO CONTRAST [...] Audi Rodriguez M.D. MZ T: Report ID: [id number] Reading Location: [id number] Procedure Note Audi Rodriguez MD - 10/01/2024 [...] the ordering provider at 10:56 a.m. on 10/01/2024y the clinical radiologists operational support center. THIS IS AN ELECTRONICALLY VERIFIED FINAL REPORT 10/01/2024 10:56 AM - Electronically signed by Audi PRUITT T: Report ID: [id number] Reading Location: [id number] Saim Parker DO IMG CT PROCEDURES Final Result * POCT glucose (10/01/2024 8:12 AM FAMILY SUPPORT WORKER) Glucose, POC 185 70 - 199 mg/dL Blood 10/01/2024 8:12 AM FAMILY SUPPORT WORKER 10/01/2024 8:12 AM FAMILY SUPPORT WORKER Simi Parker DO LAB POCT ORDERABLES - DEVICE Fin al Result Performing Organization Address [facility] Co de Phone Number MARCELINO [address] [employer] [address] * Lactate (10/01/2024 12:18 AM FAMILY SUPPORT WORKER) [facility] Lactate 1.8 0.7 - 2.0 mmol/L Blood 10/01/2024 12:1 8 AM FAMILY SUPPORT WORKER 10/01/2024 12:21 AM FAMILY SUPPORT WORKER Mitra Ibarra MANAGER FORENS[employer] LAB BLOOD ORDERABLES Fi nal Result Performing Organization Address [facility] Co de Phone Number [address] [employer] [address] * eGFR (10/01/2024 12:18 AM FAMILY SUPPORT WORKER) [facility] eGFR 65 >=60 mL/min/1. 73 m2 Comment: [...] reviewed 2021. Blood 10/01/2024 12:1 8 AM FAMILY SUPPORT WORKER 10/01/2024 12:21 AM FAMILY SUPPORT WORKER us Mitra Ibarra NP LAB BLOOD ORDERABLES Fi nal Result [facility] [address] [facility] Department [place] [address] * (ABNORMAL) Differential, auto (10/01/2024 12:18 AM FAMILY SUPPORT WORKER) Neutrophil abs 8.0(H) 1.5 - 6.5 K/cumm Imm gran abs 0.1 0.0 - 0.1 K/cumm [facility] Lymphocyte abs 0.4(L) 0.8 - 3.3 K/cumm [facility] Monocyte abs 0.7 0.2 - 0.8 K/cumm [facility] Eosinophil abs 0.0 0.0 - 0.5 K/cumm [facility] Basophil abs 0.0 0.0 - 0.1 K/cumm [facility] Neutrophil pct 87.8 % [facility] Comment: Interpretive Data Percent cell count reference ranges are not reported, since discordance with absolute values may lead to misinterpretation of CBC data. Current Interpretive Data was last revised on 2017. Imm gran pct 0.5 % [facility] Comment: Interpretive Data Percent cell count reference ranges are not reported, since discordance with absolute values may lead to misinterpretation of CBC data. Current Interpretive Data was last revised on 2017. Lymphocyte pct 4.2 % [facility] Comment: Interpretive Data Percent cell count reference ranges are not reported, since discordance with absolute values may lead to misinterpretation of CBC data. Current Interpretive Data was last revised on 2017. Monocyte pct 7.1 % [facility] Comment: Interpretive Data Percent cell count reference ranges are not reported, since discordance with absolute values may lead to misinterpretation of CBC data. Current Interpretive Data was last revised on 2017. Eosinophil pct 0.2 % [facility] Comment: Interpretive Data Percent cell count reference ranges are not reported, since discordance with absolute values may lead to misinterpretation of CBC data. Current Interpretive Data was last revised on 2017. Basophil pct 0.2 % [facility] Comment: Interpretive Data Percent cell count reference ranges are not reported, since discordance with absolute values may lead to misinterpretation of CBC data. Current Interpretive Data was last revised on 2017. Blood 10/01/2024 12:1 8 AM FAMILY SUPPORT WORKER 10/01/2024 12:21 AM FAMILY SUPPORT WORKER Mitra Ibarra MANAGER FORENSIC LAB BLOOD ORDERABLES Fi nal Result Performing Organization Address [facility] Co de Phone Number [place] [phone] [facility] Department [place] [address] * (ABNORMAL) CBC with auto differential (10/01/2024 12:18 AM FAMILY SUPPORT WORKER) WBC 9.1 3.8 - 9.9 K/cumm Hgb 11.6(L) 11.9 - 15.5 g/dL [facility] Hct 38.4 35.6 - 45.5 % [facility] Plt 270 150 - 400 K/cumm [facility] MPV 9.2 9.1 - 12.3 fL [facility] RBC 4.48 3.90 - 5.20 M/cumm [facility] MCV 85.7 81.3 - 96.4 fL [facility] MCH 25.9(L) 27.1 - 33.3 pg [facility] MCHC 30.2(L) 32.3 - 35.7 g/dL [facility] RDW CV 16.8(H) 11.1 - 14.9 % [facility] RDW SD 51.9(H) 35.7 - 48.1 fL [facility] NRBC abs 0.00 0.00 - 0.01 K/cumm [facility] Blood 10/01/2024 12:1 8 AM FAMILY SUPPORT WORKER 10/01/2024 12:21 AM FAMILY SUPPORT WORKER Mitra Ibarra MANAGER FORENSIC LAB BLOOD ORDERABLES Fi nal Result Performing Organization Address City/[facility] Co de Phone Number [address] [address] * Phosphorus (10/01/2024 12:18 AM FAMILY SUPPORT WORKER) [facility] Phosphorus, pl 2.9 2.3 - 4.5 mg/dL Blood 10/01/2024 12:1 8 AM FAMILY SUPPORT WORKER 10/01/2024 12:21 AM FAMILY SUPPORT WORKER Mitra Ibarra MANAGER FORENSIC LAB BLOOD ORDERABLES Fi nal Result Performing Organization Address [facility] Co de Phone Number [address] [place] [address] * Magnesium (10/01/2024 12:18 AM FAMILY SUPPORT WORKER) [facility] Magnesium 1.8 1.4 - 2.5 mg/dL Blood 10/01/2024 12:1 8 AM FAMILY SUPPORT WORKER 10/01/2024 12:21 AM FAMILY SUPPORT WORKER Mitra Ibarra MANAGER FORENSIC LAB BLOOD ORDERABLES Fi nal Result Performing Organization Address [facility] de Phone Number [address] [address] * (ABNORMAL) Basic metabolic panel (10/01/2024 12:18 AM FAMILY SUPPORT WORKER) [facility] Sodium 135 135 - 145 mmol/L Potassium, pl 3.7 3.3 - 4.9 mmol/L [facility] Chloride 96(L) 97 - 110 mmol/L [facility] CO2 27 22 - 32 mmol/L [facility] Anion gap 12 2 - 15 mmol/L [facility] BUN 11 6 - 25 mg/dL [facility] Creatinine 0.88 0.60 - 1.10 mg/dL [facility] Glucose 157 70 - 199 mg/dL [facility] Comment: Interpretive Data Fasting glucose >/= [...] 2022. Calcium 10.3 8.5 - 10.3 mg/dL [facility]INO [facility] Blood 10/01/2024 12:1 8 AM FAMILY SUPPORT WORKER 10/01/2024 12:21 AM FAMILY SUPPORT WORKER us Mitra Ibarra MANAGER FORENS[employer] LAB BLOOD ORDERABLES Fi nal Result MARCELINO [address] [facility] Department [place] [address] * XR Chest 1 View (10/01/2024 12:03 AM FAMILY SUPPORT WORKER) Anatomical Region Laterality Modality Body, Chest N/A Computed Radiogr aphy 10/01/2024 12:3 3 AM FAMILY SUPPORT WORKER Narrative 10/01/2024 12:33 AM FAMILY SUPPORT WORKER EXAM DESCRIPTION: XR CHEST 1 VIEW REASON [...] AM - Electronically signed by Juan Francisco ESPARZA T: Report ID: [id number] Reading Location: [id number] Procedure Note Juan Francisco Campbell MD - [...] AM - Electronically signed by Juan Francisco ESPARZA T: Report ID: [id number] Reading Location: [place] [address] Mitra Ibarra MANAGER FORENSIC IMG XR PROCEDURES Final Result * POCT glucose (09/30/2024 10:19 PM FAMILY SUPPORT WORKER) Glucose, POC 150 70 - 199 mg/dL Blood 09/30/2024 10:1 9 PM FAMILY SUPPORT WORKER 09/30/2024 10:19 PM FAMILY SUPPORT WORKER Saim Parker DO LAB POCT ORDERABLES - DEVICE Fin al Result Performing Organization Address [facility] Co de Phone Number [address] [place] [address] * (ABNORMAL) POCT glucose (09/30/2024 4:03 PM FAMILY SUPPORT WORKER) Glucose, POC 255(H) 70 - 199 mg/dL Glucose comment 1 Use This Result [facility] Glucose comment 2 RN/MD Notified [facility] Blood 09/30/2024 4:03 PM FAMILY SUPPORT WORKER 09/30/2024 4:03 PM FAMILY SUPPORT WORKER Saim Parker DO LAB POCT ORDERABLES - DEVICE Fin al Result Performing Organization Address City/[facility] Co de Phone Number [address] [place] [address] * POCT glucose (09/30/2024 11:04 AM FAMILY SUPPORT WORKER) Glucose, POC 172 70 - 199 mg/dL Glucose comment 1 Use This Result MARCELINO Blood 09/30/2024 11:0 4 AM FAMILY SUPPORT WORKER 09/30/2024 11:04 AM FAMILY SUPPORT WORKER Saim Parker DO LAB POCT ORDERABLES - DEVICE Fin al Result Performing Organization Address [facility] Co de Phone Number [address] [address] * POCT glucose (09/30/2024 7:25 AM FAMILY SUPPORT WORKER) Glucose, POC 95 70 - 199 mg/dL Glucose comment 1 Use This Result [facility] Blood 09/30/2024 7:25 AM FAMILY SUPPORT WORKER 09/30/2024 7:25 AM FAMILY SUPPORT WORKER Saim Parker DO LAB POCT ORDERABLES - DEVICE Fin al Result Performing Organization Address [facility] de Phone Number [address] [address] * (ABNORMAL) eGFR (09/30/2024 4:27 AM FAMILY SUPPORT WORKER) [facility] eGFR 57(L) >=60 mL/min/1. 73 m2 Comment: [...] last reviewed 2021. Blood 09/30/2024 4:27 AM FAMILY SUPPORT WORKER 09/30/2024 5:41 AM FAMILY SUPPORT WORKER us Simi Parker DO LAB BLOOD ORDERABLES Final Resul t [facility] [address] [facility] Department [place] [address] * Differential, auto (09/30/2024 4:27 AM FAMILY SUPPORT WORKER) Neutrophil abs 6.4 1.5 - 6.5 K/cumm Imm gran abs 0.0 0.0 - 0.1 K/cumm [facility] Lymphocyte abs 1.0 0.8 - 3.3 K/cumm [facility] Monocyte abs 0.7 0.2 - 0.8 K/cumm [facility] Eosinophil abs 0.2 0.0 - 0.5 K/cumm [facility] Basophil abs 0.0 0.0 - 0.1 K/cumm [facility] Neutrophil pct 76.7 % [facility] Comment: Interpretive Data Percent cell count reference ranges are not reported, since discordance with absolute values may lead to misinterpretation of CBC data. Current Interpretive Data was last revised on 2017. Imm gran pct 0.5 % [facility] Comment: Interpretive Data Percent cell count reference ranges are not reported, since discordance with absolute values may lead to misinterpretation of CBC data. Current Interpretive Data was last revised on 2017. Lymphocyte pct 11.9 % [facility] Comment: Interpretive Data Percent cell count reference ranges are not reported, since discordance with absolute values may lead to misinterpretation of CBC data. Current Interpretive Data was last revised on 2017. Monocyte pct 7.8 % [facility] Comment: Interpretive Data Percent cell count reference ranges are not reported, since discordance with absolute values may lead to misinterpretation of CBC data. Current Interpretive Data was last revised on 2017. Eosinophil pct 2.6 % [facility] Comment: Interpretive Data Percent cell count reference ranges are not reported, since discordance with absolute values may lead to misinterpretation of CBC data. Current Interpretive Data was last revised on 2017. Basophil pct 0.5 % [facility] Comment: Interpretive Data Percent cell count reference ranges are not reported, since discordance with absolute values may lead to misinterpretation of CBC data. Current Interpretive Data was last revised on 2017. Blood 09/30/2024 4:27 AM FAMILY SUPPORT WORKER 09/30/2024 5:40 AM FAMILY SUPPORT WORKER Saim Parker DO LAB BLOOD ORDERABLES Final Resul t Performing Organization Address [facility] Co de Phone Number MARCELINO [address] [employer] [place] [address] * (ABNORMAL) CBC with auto differential (09/30/2024 4:27 AM FAMILY SUPPORT WORKER) WBC 8.4 3.8 - 9.9 K/cumm Hgb 10.7(L) 11.9 - 15.5 g/dL [facility] Hct 34.9(L) 35.6 - 45.5 % [facility] Plt 290 150 - 400 K/cumm [facility] MPV 9.4 9.1 - 12.3 fL [facility] RBC 3.99 3.90 - 5.20 M/cumm [facility] MCV 87.5 81.3 - 96.4 fL [facility] MCH 26.8(L) 27.1 - 33.3 pg [facility] MCHC 30.7(L) 32.3 - 35.7 g/dL [facility] RDW CV 16.7(H) 11.1 - 14.9 % [facility] RDW SD 52.8(H) 35.7 - 48.1 fL [facility] NRBC abs 0.00 0.00 - 0.01 K/cumm [facility] Blood 09/30/2024 4:27 AM FAMILY SUPPORT WORKER 09/30/2024 5:40 AM FAMILY SUPPORT WORKER Saim Parker DO LAB BLOOD ORDERABLES Final Resul t Performing Organization Address City/[facility] Co de Phone Number CERNER [address] [place] [address] * (ABNORMAL) Basic metabolic panel (09/30/2024 4:27 AM FAMILY SUPPORT WORKER) Pathologist [facility] Sodium 134(L) 135 - 145 mmol/L Potassium, pl 3.3 3.3 - 4.9 mmol/L [facility] Chloride 100 97 - 110 mmol/L [facility] CO2 26 22 - 32 mmol/L [facility] Anion gap 8 2 - 15 mmol/L [facility] BUN 13 6 - 25 mg/dL [facility] Creatinine 0.98 0.60 - 1.10 mg/dL [facility] Glucose 110 70 - 199 mg/dL [facility] Comment: Interpretive Data Fasting glucose >/= [...] 2022. Calcium 9.5 8.5 - 10.3 mg/dL [facility] Blood 09/30/2024 4:27 AM FAMILY SUPPORT WORKER 09/30/2024 5:41 AM FAMILY SUPPORT WORKER Simi Parker DO LAB BLOOD ORDERABLES Final Resul t [place] [id number] [facility] Department [place] [address] * (ABNORMAL) POCT glucose (09/29/2024 7:36 PM FAMILY SUPPORT WORKER) Pathologist [facility] Glucose, POC 224(H) 70 - 199 mg/dL Glucose comment 1 Use This Result [facility] Glucose comment 2 RN/MD Notified [facility] Blood 09/29/2024 7:36 PM FAMILY SUPPORT WORKER 09/29/2024 7:36 PM FAMILY SUPPORT WORKER us Saim Parker DO LAB POCT ORDERABLES - DEVICE Fin al Result Performing Organization Address [facility] Co de Phone Number MARCELINO [address] [place] [address] * (ABNORMAL) POCT glucose (09/29/2024 4:13 PM FAMILY SUPPORT WORKER) Glucose, POC 203(H) 70 - 199 mg/dL Glucose comment 1 Use This Result [facility] Glucose comment 2 RN/MD Notified [facility] Blood 09/29/2024 4:13 PM FAMILY SUPPORT WORKER 09/29/2024 4:13 PM FAMILY SUPPORT WORKER us Saim Parker DO LAB POCT ORDERABLES - DEVICE Fin al Result Performing Organization Address [facility] Co de Phone Number MARCELINO [address] [place] [address] * (ABNORMAL) POCT glucose (09/29/2024 11:25 AM FAMILY SUPPORT WORKER) Glucose, POC 258(H) 70 - 199 mg/dL Glucose comment 1 Use This Result [facility] Glucose comment 2 RN/MD Notified MARCELINO Blood 09/29/2024 11:2 5 AM FAMILY SUPPORT WORKER 09/29/2024 11:25 AM FAMILY SUPPORT WORKER us Saim Parker DO LAB POCT ORDERABLES - DEVICE Fin al Result Performing Organization Address [facility] Co de Phone Number MARCELINO [address] [place] [address] * (ABNORMAL) POCT glucose (09/29/2024 11:23 AM FAMILY SUPPORT WORKER) Glucose, POC 243(H) 70 - 199 mg/dL Glucose comment 1 Use This Result [facility] Glucose comment 2 RN/ Notified MARCELINO Blood 09/29/2024 11:2 3 AM FAMILY SUPPORT WORKER 09/29/2024 11:23 AM FAMILY SUPPORT WORKER us Saim Parker DO LAB POCT ORDERABLES - DEVICE Fin al Result Performing Organization Address [facility] Co de Phone Number [address] [place] [address] * (ABNORMAL) Iron profile w/ IBC (09/29/2024 10:58 AM FAMILY SUPPORT WORKER) Iron 27(L) 35 - 145 mcg/dL TIBC 289 250 - 400 mcg/dL [facility] Transferrin saturation 9(L) 20 - 50 % [facility] Blood 09/29/2024 10:5 8 AM FAMILY SUPPORT WORKER 09/29/2024 11:15 AM FAMILY SUPPORT WORKER Saim Parker DO LAB BLOOD ORDERABLES Final Resul t Performing Organization Address [facility] Co de Phone Number [address] [place] [address] * Folate (09/29/2024 10:58 AM FAMILY SUPPORT WORKER) Folic acid 7.1 >=5.0 ng/mL Blood 09/29/2024 10:5 8 AM FAMILY SUPPORT WORKER 09/29/2024 11:15 AM FAMILY SUPPORT WORKER Saim Parker DO LAB BLOOD ORDERABLES Final Resul t Performing Organization Address [facility] Co de Phone Number [address] [place] [address] * Ferritin (09/29/2024 10:58 AM FAMILY SUPPORT WORKER) Ferritin 67 15 - 150 ng/mL Blood 09/29/2024 10:5 8 AM FAMILY SUPPORT WORKER 09/29/2024 11:15 AM FAMILY SUPPORT WORKER Saim Parker DO LAB BLOOD ORDERABLES Final Resul t Performing Organization Address [facility]/ZIP Co de Phone Number [address] [place] [address] * Vitamin B12 (09/29/2024 10:58 AM FAMILY SUPPORT WORKER) Pathologist [facility] Vitamin B12 399 230 - 1,250 pg/mL Blood 09/29/2024 10:5 8 AM FAMILY SUPPORT WORKER 09/29/2024 11:15 AM FAMILY SUPPORT WORKER Saim Parker DO LAB BLOOD ORDERABLES Final Resul t Performing Organization Address City/[facility] Co de Phone Number MARCELINO [address] [place] [address] * POCT glucose (09/29/2024 7:56 AM FAMILY SUPPORT WORKER) [facility] Glucose, POC 100 70 - 199 mg/dL Glucose comment 1 Use This Result [facility] Glucose comment 2 RN/MD Notified [facility] Blood 09/29/2024 7:56 AM FAMILY SUPPORT WORKER 09/29/2024 7:56 AM FAMILY SUPPORT WORKER [employer] DO LAB POCT ORDERABLES - DEVICE Fin al Result Performing Organization Address [facility] de Phone Number MARCELINO [address] [place] [address] * ECG 12 lead (09/29/2024 7:17 AM FAMILY SUPPORT WORKER) [facility] Ventricular Rate EKG/Min 71 BPM [facility] Atrial Rate 71 BPM [facility] [place]-Interval (MSEC) 176 ms [facility] QRS-Interval (MSEC) 102 ms [facility] QT-Interval (MSEC) 428 ms [facility] QTc 465 ms [facility] P [place] 16 degrees [facility] R [place] -17 degrees [facility] T [place] 147 degrees [facility] Diagnosis Normal sinus rhythm Left ventricular hypertrophy with repolarization abnormality ( R in aVL , [place] product ) 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 ([id number]) on 10/02/2024 8:14:02 PM [facility] 09/29/2024 7:17 AM FAMILY SUPPORT WORKER 10/02/2024 8:14 PM FAMILY SUPPORT WORKER Mackenzie Carey MANAGER FORENSIC ECG ORDERABLES Final Result Performing Organization Address [facility]/ZIP Co de Phone Number [facility] * eGFR (09/29/2024 6:21 AM FAMILY SUPPORT WORKER) eGFR 64 >=60 mL/min/1. 73 m2 Comment: [...] last reviewed 2021. Blood 09/29/2024 6:21 AM FAMILY SUPPORT WORKER 09/29/2024 6:29 AM FAMILY SUPPORT WORKER Mackenzie Carey NP LAB BLOOD ORDERABLES Final R esult MARCELINO [address] [facility] Department of Laboratories [place], [place] [id number] * Differential, auto (09/29/2024 6:21 AM FAMILY SUPPORT WORKER) Neutrophil abs 5.7 1.5 - 6.5 K/cumm Imm gran abs 0.0 0.0 - 0.1 K/cumm MARCELINO Lymphocyte abs 1.3 0.8 - 3.3 K/cumm [facility] Monocyte abs 0.8 0.2 - 0.8 K/cumm [facility] Eosinophil abs 0.2 0.0 - 0.5 K/cumm [facility] Basophil abs 0.0 0.0 - 0.1 K/cumm [facility] Neutrophil pct 71.2 % [facility] Comment: Interpretive Data Percent cell count reference ranges are not reported, since discordance with absolute values may lead to misinterpretation of CBC data. Current Interpretive Data was last revised on 2017. Imm gran pct 0.4 % [facility] Comment: Interpretive Data Percent cell count reference ranges are not reported, since discordance with absolute values may lead to misinterpretation of CBC data. Current Interpretive Data was last revised on 2017. Lymphocyte pct 16.1 % [facility] Comment: Interpretive Data Percent cell count reference ranges are not reported, since discordance with absolute values may lead to misinterpretation of CBC data. Current Interpretive Data was last revised on 2017. Monocyte pct 9.9 % [facility] Comment: Interpretive Data Percent cell count reference ranges are not reported, since discordance with absolute values may lead to misinterpretation of CBC data. Current Interpretive Data was last revised on 2017. Eosinophil pct 2.0 % [facility] Comment: Interpretive Data Percent cell count reference ranges are not reported, since discordance with absolute values may lead to misinterpretation of CBC data. Current Interpretive Data was last revised on 2017. Basophil pct 0.4 % [facility] Comment: Interpretive Data Percent cell count reference ranges are not reported, since discordance with absolute values may lead to misinterpretation of CBC data. Current Interpretive Data was last revised on 2017. Blood 09/29/2024 6:21 AM FAMILY SUPPORT WORKER 09/29/2024 6:29 AM FAMILY SUPPORT WORKER us Mackenzie Carey NP LAB BLOOD ORDERABLES Final R esult MARCELINO HAYWOOD [address] [facility] Department [place] [address] * (ABNORMAL) CBC with auto differential (09/29/2024 6:21 AM FAMILY SUPPORT WORKER) [facility] WBC 8.0 3.8 - 9.9 K/cumm Hgb 10.3(L) 11.9 - 15.5 g/dL [facility] Hct 34.4(L) 35.6 - 45.5 % [facility] Plt 290 150 - 400 K/cumm [facility] MPV 9.0(L) 9.1 - 12.3 fL [facility] RBC 3.96 3.90 - 5.20 M/cumm [facility] MCV 86.9 81.3 - 96.4 fL [facility] MCH 26.0(L) 27.1 - 33.3 pg [facility] MCHC 29.9(L) 32.3 - 35.7 g/dL [facility] RDW CV 16.4(H) 11.1 - 14.9 % [facility] RDW SD 52.3(H) 35.7 - 48.1 fL [facility] NRBC abs 0.00 0.00 - 0.01 K/cumm [facility] Blood 09/29/2024 6:21 AM FAMILY SUPPORT WORKER 09/29/2024 6:29 AM FAMILY SUPPORT WORKER Mackenzie Carey MANAGER FORENSIC LAB BLOOD ORDERABLES Final [facility] Performing Organization Address City/[facility] Co de Phone Number [address] [place] [address] * Phosphorus (09/29/2024 6:21 AM FAMILY SUPPORT WORKER) [facility] Phosphorus, pl 3.2 2.3 - 4.5 mg/dL Blood 09/29/2024 6:21 AM FAMILY SUPPORT WORKER 09/29/2024 6:29 AM FAMILY SUPPORT WORKER Mackenzie Carey MANAGER FORENSIC LAB BLOOD ORDERABLES Final R esult Performing Organization Address [facility] Co de Phone Number [address] [place] [address] * Magnesium (09/29/2024 6:21 AM FAMILY SUPPORT WORKER) Magnesium 2.0 1.4 - 2.5 mg/dL Blood 09/29/2024 6:21 AM FAMILY SUPPORT WORKER 09/29/2024 6:29 AM FAMILY SUPPORT WORKER us Mackenzie Carey MANAGER FORENSIC LAB BLOOD ORDERABLES Final R esult [facility] [address] [facility] Department [place] [address] * (ABNORMAL) Comprehensive metabolic panel (09/29/2024 6:21 AM FAMILY SUPPORT WORKER) Sodium 139 135 - 145 mmol/L Potassium, pl 3.8 3.3 - 4.9 mmol/L [facility] Chloride 105 97 - 110 mmol/L [facility] CO2 26 22 - 32 mmol/L [facility] Anion gap 8 2 - 15 mmol/L [facility] BUN 14 6 - 25 mg/dL [facility] Creatinine 0.89 0.60 - 1.10 mg/dL [facility] Glucose 113 70 - 199 mg/dL [facility] Comment: Interpretive Data Fasting glucose >/= [...] 2022. Calcium 9.1 8.5 - 10.3 mg/dL [facility] Bilirubin, total 0.2 0.1 - 1.2 mg/dL [facility] Protein, pl 5.5(L) 6.5 - 8.5 g/dL [facility] Albumin 3.2(L) 3.5 - 5.0 g/dL [facility] Alk phos 73 40 - 130 Units/L [facility] ALT 13 7 - 45 Units/L [facility] AST 27 10 - 45 Units/L [facility] Blood 09/29/2024 6:21 AM FAMILY SUPPORT WORKER 09/29/2024 6:29 AM FAMILY SUPPORT WORKER Mackenzie Carey MANAGER FORENSIC LAB BLOOD ORDERABLES Final R esult Performing Organization Address City/[facility] Co de Phone Number MARCELINO [address] [place] [address] * POCT glucose (09/29/2024 2:02 AM FAMILY SUPPORT WORKER) Glucose, POC 135 70 - 199 mg/dL Blood 09/29/2024 2:02 AM FAMILY SUPPORT WORKER 09/29/2024 2:02 AM FAMILY SUPPORT WORKER Faustino Frankel MD LAB POCT ORDERABLES - DEVICE Final Result Performing Organization Address [facility] Co de Phone Number MARCELINO [address] [place] [address] * POCT glucose (09/28/2024 8:40 PM FAMILY SUPPORT WORKER) Glucose, POC 172 70 - 199 mg/dL Blood 09/28/2024 8:40 PM FAMILY SUPPORT WORKER 09/28/2024 8:40 PM FAMILY SUPPORT WORKER Faustino Frankel MD LAB POCT ORDERABLES - DEVICE Final Result Performing Organization Address [facility] Co de Phone Number [address] [place] [address] * POCT glucose (09/28/2024 5:39 PM FAMILY SUPPORT WORKER) Glucose, POC 184 70 - 199 mg/dL Glucose comment 1 Use This Result MARCELINO HAYWOOD Glucose comment 2 RN/MD Notified MARCELINO Blood 09/28/2024 5:39 PM FAMILY SUPPORT WORKER 09/28/2024 5:39 PM FAMILY SUPPORT WORKER Result [facility] Faustino Frankel MD LAB POCT ORDERABLES - DEVICE Final Result Performing Organization Address City/[facility] Co de Phone Number MARCELINO [address] [place] [address] * TRANSTHORACIC ECHO (TTE) COMPLETE W DOPPLER/CF WO CONTRAST (09/28/2024 4:40 PM FAMILY SUPPORT WORKER) Anatomical Region Laterality Modality Ultrasound 09/28/2024 4:01 PM FAMILY SUPPORT WORKER Narrative 09/28/2024 5:45 PM FAMILY SUPPORT WORKER Adult Echocardiogram + ----- + :Name: SHARI KAISER Study Date: 09/28/2024 Status: B : : Patient Location: [address]^[id number]^MHBHeight: 66 in : : Weight: 185 lbBP: [...] Date: 09/28/2024Status: B : : Patient Location: [address]^[id number]^MHBHeight: 66 in : : : 185 lbBP: 150/81 mmHg: :: 1940 Gender: FemaleBSA: 1.9 m2 : :Reason For Study: accidental fall: :Ordering Physician: KEM,: :MACKENZIE: :: :Performed By: Alia: :DAWOOD Barkley: + ----- + Procedure A two-dimensional [...] Jonas MD 09/28/2024 05:45PM us Mackenzie Carey MANAGER FORENSIC CV ECHO PROCEDURES Final Res ult * (ABNORMAL) eGFR (09/28/2024 12:13 PM FAMILY SUPPORT WORKER) Pathologist [facility] eGFR 58(L) >=60 mL/min/1. 73 m2 Comment: [...] reviewed 2021. Blood 09/28/2024 12:1 3 PM FAMILY SUPPORT WORKER 09/28/2024 12:16 PM FAMILY SUPPORT WORKER Mackenzie Carey NP LAB BLOOD ORDERABLES Final [facility]ult [facility] [address] [facility] Department [place] [address] * Differential, auto (09/28/2024 12:13 PM FAMILY SUPPORT WORKER) Pathologist [facility] Neutrophil abs 6.2 1.5 - 6.5 K/cumm Imm gran abs 0.0 0.0 - 0.1 K/cumm [facility] Lymphocyte abs 1.1 0.8 - 3.3 K/cumm [facility] Monocyte abs 0.7 0.2 - 0.8 K/cumm [facility] Eosinophil abs 0.1 0.0 - 0.5 K/cumm [facility] Basophil abs 0.0 0.0 - 0.1 K/cumm [facility] Neutrophil pct 75.7 % [facility] Comment: Interpretive Data Percent cell count reference ranges are not reported, since discordance with absolute values may lead to misinterpretation of CBC data. Current Interpretive Data was last revised on 2017. Imm gran pct 0.4 % [facility] Comment: Interpretive Data Percent cell count reference ranges are not reported, since discordance with absolute values may lead to misinterpretation of CBC data. Current Interpretive Data was last revised on 2017. Lymphocyte pct 13.5 % [facility] Comment: Interpretive Data Percent cell count reference ranges are not reported, since discordance with absolute values may lead to misinterpretation of CBC data. Current Interpretive Data was last revised on 2017. Monocyte pct 8.9 % [facility] Comment: Interpretive Data Percent cell count reference ranges are not reported, since discordance with absolute values may lead to misinterpretation of CBC data. Current Interpretive Data was last revised on 2017. Eosinophil pct 1.3 % [facility] Comment: Interpretive Data Percent cell count reference ranges are not reported, since discordance with absolute values may lead to misinterpretation of CBC data. Current Interpretive Data was last revised on 2017. Basophil pct 0.2 % [facility] Comment: Interpretive Data Percent cell count reference ranges are not reported, since discordance with absolute values may lead to misinterpretation of CBC data. Current Interpretive Data was last revised on 2017. Blood 09/28/2024 12:1 3 PM FAMILY SUPPORT WORKER 09/28/2024 12:15 PM FAMILY SUPPORT WORKER us Mackenzie Carey MANAGER FORENSIC LAB BLOOD ORDERABLES Final R esult MARCELINO [address] [facility] Department of Laboratories [place], [place] [id number] * Thyroid Function [place] (09/28/2024 12:13 PM FAMILY SUPPORT WORKER) TSH 1.07 0.30 - 4.20 mcIUnit/mL Blood 09/28/2024 12:1 3 PM FAMILY SUPPORT WORKER 09/28/2024 12:16 PM FAMILY SUPPORT WORKER us Mackenzie Carey MANAGER FORENSIC LAB BLOOD ORDERABLES Final R esult Performing Organization Address [facility] Co de Phone Number MARCELINO [address] [address] * (ABNORMAL) CBC with auto differential (09/28/2024 12:13 PM FAMILY SUPPORT WORKER) [facility] WBC 8.2 3.8 - 9.9 K/cumm Hgb 10.6(L) 11.9 - 15.5 g/dL [facility] Hct 34.2(L) 35.6 - 45.5 % [facility] Plt 278 150 - 400 K/cumm [facility] MPV 9.5 9.1 - 12.3 fL [facility] RBC 3.97 3.90 - 5.20 M/cumm [facility] MCV 86.1 81.3 - 96.4 fL [facility] MCH 26.7(L) 27.1 - 33.3 pg [facility] MCHC 31.0(L) 32.3 - 35.7 g/dL [facility] RDW CV 16.5(H) 11.1 - 14.9 % [facility] RDW SD 51.9(H) 35.7 - 48.1 fL [facility] NRBC abs 0.00 0.00 - 0.01 K/cumm [facility] Blood 09/28/2024 12:1 3 PM FAMILY SUPPORT WORKER 09/28/2024 12:15 PM FAMILY SUPPORT WORKER Mackenzie Carey NP LAB BLOOD ORDERABLES Final R esult Performing Organization Address City/[facility] Co de Phone Number MARCELINO [address] [address] * (ABNORMAL) Phosphorus (09/28/2024 12:13 PM FAMILY SUPPORT WORKER) [facility] Phosphorus, pl 2.2(L) 2.3 - 4.5 mg/dL Blood 09/28/2024 12:1 3 PM FAMILY SUPPORT WORKER 09/28/2024 12:16 PM FAMILY SUPPORT WORKER Mackenzie Carey NP LAB BLOOD ORDERABLES Final R esult Performing Organization Address [facility] de Phone Number MARCELINO [address] [place] [address] * Magnesium (09/28/2024 12:13 PM FAMILY SUPPORT WORKER) [facility] Magnesium 1.8 1.4 - 2.5 mg/dL Blood 09/28/2024 12:1 3 PM FAMILY SUPPORT WORKER 09/28/2024 12:16 PM FAMILY SUPPORT WORKER Mackenzie Carey MANAGER FORENSIC LAB BLOOD ORDERABLES Final R esult Performing Organization Address [facility] de Phone Number ORLIN[address] [place] [address] * (ABNORMAL) Hemoglobin A1c (09/28/2024 12:13 PM FAMILY SUPPORT WORKER) [facility] Hgb A1C 7.7(H) 4.0 - 5.6 % Estimated Average Glucose 174 mg/dL [facility] Comment: The ADA recommends reporting an estimated Average Glucose (eAG) with all Hemoglobin A1c results using the equation derived from a study of 507 normal and diabetic adults. Minority populations were underrepresented and children were not included. (Diabetes Care 31:3310-8203, 2008). The eAG is not equivalent to a fasting glucose. Blood 09/28/2024 12:1 3 PM FAMILY SUPPORT WORKER 09/28/2024 12:16 PM FAMILY SUPPORT WORKER Mackenzie Carey MANAGER FORENSIC LAB BLOOD ORDERABLES Final R esult Performing Organization Address [facility] de Phone Number [facility] [address] [place] [address] [place] [address] * Basic metabolic panel (09/28/2024 12:13 PM FAMILY SUPPORT WORKER) [facility] Sodium 140 135 - 145 mmol/L Potassium, pl 3.4 3.3 - 4.9 mmol/L [facility] Chloride 104 97 - 110 mmol/L [facility] CO2 28 22 - 32 mmol/L [facility] Anion gap 8 2 - 15 mmol/L [facility] BUN 16 6 - 25 mg/dL [facility] Creatinine 0.97 0.60 - 1.10 mg/dL [facility] Glucose 141 70 - 199 mg/dL [facility] Comment: Delta - Results Reviewed Interpretive [...] mg/dL MARCELINO Blood 09/28/2024 12:1 3 PM FAMILY SUPPORT WORKER 09/28/2024 12:16 PM FAMILY SUPPORT WORKER us Mackenzie Carey NP LAB BLOOD ORDERABLES Final R esult [facility] [address] [facility] Department [place] [address] * (ABNORMAL) Urinalysis reflex to microscopic and culture Urine (09/28/2024 8:45 AM FAMILY SUPPORT WORKER) Color, ur Straw Yellow Comment:Testing performed by : [address] [address] Clarity, ur Cloudy(A) Clear MARCELINO Comment:Testing performed by : [address] [address] Specific gravity, ur 1.005 1.003 - 1.030 MARCELINO Comment:Testing performed by : [address] [address] pH, urine 7.0 MARCELINO Comment: Interpretive Data U rine pH is affected by diet, medications, systemic acid-base disturbances, and renal tubular function. pH may affect urinary stone formation. For example, urine pH below 6.0 may help reduce the tendency for calcium phosphate stones and pH greater than 6.0 may reduce the tendency for uric acid stone formation. Source: [facility] Current Interpretive Data was last revised on 2017 Testing performed by: [address] [address] Protein, ur ql Trace(A) Negative MARCELINO HAYWOOD Comment:Testing performed by : [address] [address] Glucose, ur ql Negative Negative MARCELINO Comment:Testing performed by : [address], [place]., [address] Ketones, ur Negative Negative MARCELINO Comment:Testing performed by : [address] [address] Bilirubin, ur Negative Negative MARCELINO Comment:Testing performed by : [address], [place]., [address] Blood, ur 3+(A) Negative MARCELINO Comment:Testing performed by : [address] [address] Urobilinogen, ur <2.0 <2.0 mg/dL MARCELINO Comment:Testing performed by : [address] [address] Nitrite, ur Negative Negative MARCELINO Comment:Testing performed by : [address] [address] Leukocyte esterase, ur 3+(A) Negative MARCELINO Comment:Testing performed by : [address] [address] UA reflex comment Reflex to microscopic UA will be performed. MARCELINO Comment:Testing performed by : [address] [address] Urine 09/28/2024 8:45 AM FAMILY SUPPORT WORKER 09/28/2024 8:48 AM FAMILY SUPPORT WORKER us Charo MEANS LAB MICROBIOLOGY - GENERAL O RDERABLES Final Result MARCELINO HAYWOOD [address] [facility] Department [place] [address] * (ABNORMAL) Urinalysis, microscopic only (09/28/2024 8:45 AM FAMILY SUPPORT WORKER) WBC, ur 21-50(A) 0 - 5 /HPF Comment:Testing performed by : [address] [address] RBC, ur 11-20(A) 0 - 2 /HPF MARCELINO Comment:Testing performed by : [address] [address] Bacteria, ur 3+(A) MARCELINO Comment:Testing performed by : [address] [address] Culture Reflex Comment Reflex to urine culture will be performed. MARCELINO Comment:Testing performed by : [address] [address] Urine 09/28/2024 8:45 AM FAMILY SUPPORT WORKER 09/28/2024 8:48 AM FAMILY SUPPORT WORKER Charo MEANS LAB URINE ORDERABLES Final R esult MARCELINO [address] [facility] Department [place] [address] * (ABNORMAL) Urine culture Urine (09/28/2024 8:45 AM FAMILY SUPPORT WORKER) Report Final Report: Greater than or equal to 100,000 colonies/mL of Escherichia coli Plus growth of clinically insignificant bacterial tommy. (.) Comment:Testing performed by : [facility], [address] [place]., [address] Organism ESCHERICHIA COLI MARCELINO Organism PLUS GROWTH OF CLINICALLY INSIGNIFICANT TOMMY. MARCELINO Urine 09/28/2024 8:45 AM FAMILY SUPPORT WORKER 09/28/2024 12:05 PM FAMILY SUPPORT WORKER Narrative MARCELINO - 09/30/2024 10:31 AM FAMILY SUPPORT WORKER Urine culture reflexed based upon urinalysis results. Testing performed by [facility] Microbiology Laboratory ([phone]) Organism Antibiotic Method Susceptibility Escherichia coli Ampicillin [...] O RDERABLES Final Result Performing Organization Address City/[facility] Co de Phone Number [address] [place] [address] * POCT glucose (09/28/2024 8:44 AM FAMILY SUPPORT WORKER) [facility] Glucose, POC 184 70 - 199 mg/dL Comment:Testing performed by : [address] [address] Blood 09/28/2024 8:44 AM FAMILY SUPPORT WORKER 09/28/2024 8:44 AM FAMILY SUPPORT WORKER us Jhon Freeman MD LAB POCT ORDERABLES - DEVICE Final Result Performing Organization Address [facility] de Phone Number [address] [place] [address] * Influenza A/B, RSV, and COVID-19 PCR Nasopharyngeal (09/28/2024 4:59 AM FAMILY SUPPORT WORKER) [facility] COVID-19 RNA Negative Negative Comment:Testing performed by : [address] [address] Influenza A RNA Negative Negative MARCELINO Comment:Testing performed by : [address] [address] Influenza B RNA Negative Negative MARCELINO Comment:Testing performed by : [address] [address] RSV RNA Negative Negative MARCELINO Comment: Interpretive data: Testing performed by [facility]. This test is performed using the Hyperpotert Xpress CoV-2/Flu/RSV plus assay. This is a multiplex, real-time reverse transcriptase PCR assay intended for the qualitative detection of nucleic acid from SARS-CoV-2, influenza A, influenza B, and respiratory syncytial virus. This assay has been cleared by the [place] Food and Drug administration. The performance characteristics have been verified by the [facility]. Results must be considered in the clinical context, and a negative result does not rule out infection. Interpretive Data last revised 2023 Testing performed by: [facility], [address] [place] [address]., [address] Nasopharyngeal 09/28/2024 4: 59 AM FAMILY SUPPORT WORKER 09/28/2024 5:43 AM FAMILY SUPPORT WORKER Narrative MARCELINO - 09/28/2024 6:24 AM FAMILY SUPPORT WORKER Is the Patient experiencing symptoms consistent with COVID?->Unknown Jhon Freeman MD LAB MICROBIOLOGY - G ENERAL ORDERABLES Final Result Performing Organization Address City/State/[facility] Co de Phone Number [facility] [address] [facility] Department [place] [address] * XR Knee Right 1 or 2 Views (09/28/2024 1:39 AM FAMILY SUPPORT WORKER) Anatomical Region Laterality Modality Lower Extremities, Knee Right Computed Radiography 09/28/2024 1:46 AM FAMILY SUPPORT WORKER Narrative 09/28/2024 1:47 AM FAMILY SUPPORT WORKER EXAM DESCRIPTION: XR KNEE RIGHT 1 OR [...] Francisco Campbell M.D. AR: VILMA Report ID: [id number] Reading Location: [id number] Procedure Note Juan Francisco Campbell MD - [...] Francisco Campbell M.D. AR: VILMA Report ID: [id number] Reading Location: [place] [address] us Donn Reddy Jr., MD IMG XR PROCEDURES Final Result * CT Pelvis WO Contrast (09/27/2024 6:49 PM FAMILY SUPPORT WORKER) Anatomical Region Laterality Modality Body N/A Computed Tomogra phy 09/27/2024 7:28 PM FAMILY SUPPORT WORKER Narrative 09/27/2024 7:40 PM FAMILY SUPPORT WORKER EXAM DESCRIPTION: CT PELVIS WO CONTRAST REASON [...] August Lakhani M.D. AT: AT Report ID: [id number] Reading Location: [id number] Procedure Note August Lakhani MD - 09/27/2024 [...] August Lakhani M.D. AT: AT Report ID: [id number] Reading Location: [id number] us Charo MEANS IMG CT PROCEDURES Final Resu lt * XR Hip Left 2 or 3 Views W Pelvis (09/27/2024 4:49 PM FAMILY SUPPORT WORKER) Anatomical Region Laterality Modality Lower Extremities, Hip, Pelvis Left C omputed Radiography 09/27/2024 5:04 PM FAMILY SUPPORT WORKER Narrative 09/27/2024 5:07 PM FAMILY SUPPORT WORKER EXAM DESCRIPTION: XR HIP LEFT 2 OR [...] 5:07 PM - Electronically signed by Gunnar SALAZAR: MARIE Report ID: [id number] Reading Location: [id number] Procedure Note Gunnar Perez MD - 09/27/2024 [...] 5:07 PM - Electronically signed by Gunnar SALAZAR: MARIE Report ID: [id number] Reading Location: [place] [address] us Charo MEANS IMG XR PROCEDURES Final Resu lt * ECG 12 lead (09/27/2024 4:24 PM FAMILY SUPPORT WORKER) Pathologist [facility] Ventricular Rate EKG/Min 93 BPM [facility] Atrial Rate 93 BPM [facility] OH-Interval (MSEC) 164 ms [facility] QRS-Interval (MSEC) 100 ms [facility] QT-Interval (MSEC) 364 ms [facility] QTc 452 ms [facility] P [place] 11 degrees [facility] R [place] -28 degrees [facility] T [place] 112 degrees [facility] Diagnosis Normal sinus rhythm Left ventricular hypertrophy with repolarization abnormality Possible Lateral infarct , age undetermined 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 ([id number]) on 09/27/2024 9:39:29 PM [facility] 09/27/2024 4:24 PM FAMILY SUPPORT WORKER 09/27/2024 9:39 PM FAMILY SUPPORT WORKER Charo MEANS ECG ORDERABLES Final Result [facility] * (ABNORMAL) eGFR (09/27/2024 4:09 PM FAMILY SUPPORT WORKER) Pathologist [facility] eGFR 57(L) >=60 mL/min/1. 73 m2 Comment: [...] was last reviewed 2021. Testing performed by: [address] [address] Blood 09/27/2024 4:09 PM FAMILY SUPPORT WORKER 09/27/2024 4:33 PM FAMILY SUPPORT WORKER us Charo MEANS LAB BLOOD ORDERABLES Final R esult MARCELINO [address] [facility] Department of Laboratories [place], [place] [id number] * (ABNORMAL) Differential, auto (09/27/2024 4:09 PM FAMILY SUPPORT WORKER) Neutrophil abs 13.0(H) 1.5 - 6.5 K/cumm Comment:Testing performed by : [address] [address] Imm gran abs 0.1 0.0 - 0.1 K/cumm MARCELINO Comment:Testing performed by : [address] [address] Lymphocyte abs 0.3(L) 0.8 - 3.3 K/cumm MARCELINO Comment:Testing performed by : [address] [address] Monocyte abs 0.3 0.2 - 0.8 K/cumm MARCELINO Comment:Testing performed by : [address] [address] Eosinophil abs 0.0 0.0 - 0.5 K/cumm MARCELINO Comment:Testing performed by : [address] [address] Basophil abs 0.0 0.0 - 0.1 K/cumm MARCELINO Comment:Testing performed by : [address] [address] Neutrophil pct 94.8 % MARCELINO Comment: Interpretive Data Percent cell count reference ranges are not reported, since discordance with absolute values may lead to misinterpretation of CBC data. Current Interpretive Data was last revised on 2017. Testing performed by: [address] [address] Imm gran pct 0.7 % [facility] Comment: Interpretive Data Percent cell count reference ranges are not reported, since discordance with absolute values may lead to misinterpretation of CBC data. Current Interpretive Data was last revised on 2017. Testing performed by: [address] [address] Lymphocyte pct 2.1 % [facility] Comment: Interpretive Data Percent cell count reference ranges are not reported, since discordance with absolute values may lead to misinterpretation of CBC data. Current Interpretive Data was last revised on 2017. Testing performed by: [address] [address] Monocyte pct 2.1 % [facility] Comment: Interpretive Data Percent cell count reference ranges are not reported, since discordance with absolute values may lead to misinterpretation of CBC data. Current Interpretive Data was last revised on 2017. Testing performed by: [address] [address] Eosinophil pct 0.1 % [facility] Comment: Interpretive Data Percent cell count reference ranges are not reported, since discordance with absolute values may lead to misinterpretation of CBC data. Current Interpretive Data was last revised on 2017. Testing performed by: [address] [address] Basophil pct 0.2 % [facility] Comment: Interpretive Data Percent cell count reference ranges are not reported, since discordance with absolute values may lead to misinterpretation of CBC data. Current Interpretive Data was last revised on 2017. Testing performed by: [address] [address] Blood 09/27/2024 4:09 PM FAMILY SUPPORT WORKER 09/27/2024 4:33 PM FAMILY SUPPORT WORKER Charo MEANS LAB BLOOD ORDERABLES Final R esult MARCELINO [address] [facility] Department [place] [address] * (ABNORMAL) CBC with auto differential (09/27/2024 4:09 PM FAMILY SUPPORT WORKER) [facility] WBC 13.8(H) 3.8 - 9.9 K/cumm Comment:Testing performed by : [address] [address] Hgb 13.0 11.9 - 15.5 g/dL MARCELINO Comment:Testing performed by : [address] [address] Hct 43.0 35.6 - 45.5 % MARCELINO Comment:Testing performed by : [address] [address] Plt 354 150 - 400 K/cumm MARCELINO Comment:Testing performed by : [address] [address] MPV 9.5 9.1 - 12.3 fL MARCELINO Comment:Testing performed by : [address] [address] RBC 4.94 3.90 - 5.20 M/cumm MARCELINO Comment:Testing performed by : [address] [address] MCV 87.0 81.3 - 96.4 fL MARCELINO Comment:Testing performed by : [address] [address] MCH 26.3(L) 27.1 - 33.3 pg MARCELINO Comment:Testing performed by : [address] [address] MCHC 30.2(L) 32.3 - 35.7 g/dL MARCELINO Comment:Testing performed by : [address] [address] RDW CV 16.5(H) 11.1 - 14.9 % MARCELINO Comment:Testing performed by : [address], [address] RDW SD 52.3(H) 35.7 - 48.1 fL MARCELINO HAYWOOD Comment:Testing performed by : [address] [address] NRBC abs 0.00 0.00 - 0.01 K/cumm MARCELINO HAYWOOD Comment:Testing performed by : [address] [address] Blood 09/27/2024 4:09 PM FAMILY SUPPORT WORKER 09/27/2024 4:33 PM FAMILY SUPPORT WORKER us Charo MEANS LAB BLOOD ORDERABLES Final R esult MARCELINO [address] [facility] Department [place] [address] * (ABNORMAL) Comprehensive metabolic panel (09/27/2024 4:09 PM FAMILY SUPPORT WORKER) Sodium 135 135 - 145 mmol/L Comment:Testing performed by : [address] [address] Potassium, pl 3.9 3.3 - 4.9 mmol/L MARCELINO Comment:Testing performed by : [address] [address] Chloride 96(L) 97 - 110 mmol/L MARCELINO Comment:Testing performed by : [address] [address] CO2 25 22 - 32 mmol/L MARCELINO Comment:Testing performed by : [address] [address] Anion gap 14 2 - 15 mmol/L MARCELINO Comment:Testing performed by : [address] [address] BUN 21 6 - 25 mg/dL MARCELINO Comment:Testing performed by : [address] [address] Creatinine 0.98 0.60 - 1.10 mg/dL MARCELINO Comment:Testing performed by : [address] [address] Glucose 309(H) 70 - 199 mg/dL MARCELINO HAYWOOD Comment: [...] was last revised 2022. Testing performed by: [address] [address] Calcium 10.5(H) 8.5 - 10.3 mg/dL MARCELINO Comment:Testing performed by : [address] [address] Bilirubin, total 0.4 0.1 - 1.2 mg/dL [facility] Comment:Testing performed by : [address] [address] Protein, pl 7.7 6.5 - 8.5 g/dL [facility] Comment:Testing performed by : [address] [address] Albumin 4.4 3.5 - 5.0 g/dL [facility] Comment:Testing performed by : [address] [address] Alk phos 119 40 - 130 Units/L [facility] Comment:Testing performed by : [address] [address] ALT 24 7 - 45 Units/L [facility] Comment:Testing performed by : [address] [address] AST 29 10 - 45 Units/L [facility] Comment:Testing performed by : [address] [address] Blood 09/27/2024 4:09 PM FAMILY SUPPORT WORKER 09/27/2024 4:33 PM FAMILY SUPPORT WORKER us Charo MEANS LAB BLOOD ORDERABLES Final R esult MARCELINO [address] [facility] [place] [address] * (ABNORMAL) Albumin Creatinine Ratio, Urine (11/01/2023 9:30 AM FAMILY SUPPORT WORKER) Albumin Ur 50.5 mg/L MARCELINO Comment: Interpretive Data No reference range established. Current interpretive data was last revised 2019. Testing performed by: [address] [address] Creatinine Ur 101.6 mg/dL MARCELINO Comment: Interpretive Data No reference range established. Current interpretive data was last revised 2019. Testing performed by: [address] [address] Albumin Creatinine Ratio, Ur 50(H) 1 - 29 mg/g MARCELINO Comment:Testing performed by : [address] [address] Urine 11/01/2023 9:30 AM FAMILY SUPPORT WORKER 11/01/2023 12:14 PM FAMILY SUPPORT WORKER Donn Bonilla DO LAB URINE ORDERABLES Fin al Result Performing Organization Address [facility] de Phone Number MARCELINO [facility] [place] [address] * Dexa Axial Skeleton Bone Density 1 or 2 Site (02/29/2020 9:31 AM CDT) Anatomical Region Laterality Modality Body N/A Radiographic Rosa Isela ging 03/01/2020 10:5 7 AM CDT Narrative 03/01/2020 11:00 AM CDT Patient Name: SHARI KAISER Ordering Dr: Donn Bonilla DO D.O.B: 1940 Exam Date: 02/29/20930 Age: 79 Sex: Female MR#: [id number] Loc: RADIOLOGY REPORT Order #[id number] Bone Density Bone Density Hip/Spine (STD) Signed EXAM DESCRIPTION: Bone Density Hip/Spine (STD) REASON FOR STUDY: 79 year old female with given history of osteoarthritis. Warp Coiler/Model: HoloPavilion Data A (S/N [id number]) CLINICAL INFORMATION: Current height: 65.5 inches Weight: [...] AM - Electronically signed by Alonzo Canchola M.D., MD: Report ID: [id number] Reading Location: [id number] REPORT ELECTRONICALLY SIGNED IN OTHER VENDOR SYSTEM Resulting Agency Comment O Procedure Note Alonzo Canchola MD - 03/01/2020 Patient Name: SHARI KAISER Dr: Donn Bonilla DO, D.O.B: 1940 Exam Date: 02/29/20930 Age: 79 Sex: Female MR#: [id number] Loc: RADIOLOGY REPORT Order #[id number] Bone Density Bone Density Hip/Spine (STD) Signed EXAM DESCRIPTION: Bone Density Hip/Spine (STD) REASON FOR STUDY: 79 year old female with given history ofosteoarthritis. Warp Coiler/Model: HoloPavilion Data A (S/N [id number]) CLINICAL INFORMATION: Current height: 65.5 inches Weight: [...] by Alonzo Canchola M.D. 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 (gown and gloves) - not eligible for IP review until 6 months after positive culture - Colin HAM, RN 11/15/24 11/04/2024 11/04/2024 Insurance [facility] AET MEDICARE [facility] ADVANTRA [facility] [employer]TRA [facility] Advance Directives For more information, please contact: [phone] Documents on File Type Date Recorded 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 ADVANCE DIRECTIVE 11/14/2024 DNR ADVANCE DIRECTIVE 10/03/2024 3:26 PM Power of Computer Repair Instructor-Medical * DNR (Latest Code Status on File) [...] 12:00 PM 10/08/2024 7:19 PM Care Teams Service Attendant Relationship Specialty Start Date End Date Donn Bonilla DO [address] [place] [id number] PCP - General Family Medicine 07/05/19 Rc Campo MD [address] [address] PCP - Hospice Attending 11/14/24 Juan Herrera MD [address] [place] [address] [id number] Event Services Manager Cardiovascular Disease 11/14/20 Mona Islas, MANAGER [employer] [address] [place] [id number] Nurse Practitioner 05/27/23
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
--- OUTSIDE RECORDS SUMMARY | 2024-12-22 01:05 | XMS_ITS | Encounter Summary ---
Author Organization [facility] Healthcare Address [address] [place] [address] Care Team Providers Care Nuisance Wildlife Specialist Name Role Phone Donn Bonilla DO Primary Care Provider + Juan Herrera MD Unavailable Mona Islas NP Unavailable [phone] Rc Campo MD Unavailable Reason for Visit * Auth/Cert (Routine) Specialty Diagnoses / Procedures Referred By Contac t Referred To Contact Referral ID Status Reason Start Date Expiration Date Visits Re quested Visits Authorized [id number] 1 1 Encounter Details Date Type Department Care Team (Late st Contact Info) Description 12/21/2024 Home Care Visit [facility] Hospice - [address] [place] [address] Sharon Avila, RN CASE COMMUNICATION Social History Tobacco Use Types Packs/Day Years Used Date Smoking Tobacco: Never Smokeless Tobacco: Never Alcohol Use Standard Drinks/Week Comments No 0 (1 standard drink = 0.6 oz pur e alcohol) [facility] Utilities Answer Date Recorded In [...] often do you attend chur ch or latter-day services? Never 11/03/2024 Do you belong to any clubs o r organizations such as baptism groups, unions, fraternal or athletic groups, or [...] were you homeless or living in a detention (including now)? No 11/03/2024 Personal Safety Answer Date Recorded Have you ever been in or are you currently in a harmful physical or emotional relationship or is someone making you feel afraid or unsafe? Patient unable to answer 11/02/2024 Comments No Sex and Gender Information Value Date Recorded Sex Assigned at Not on file Legal Sex Female 7:06 PM SENIOR MANAGER [employer] Gender Identity Not on file Sexual Orientation [...] 11/04/2024 11/04/2024 documented as of this encounter Care Teams Nuisance Wildlife Specialist Relationship Specialty Start Date End Date Donn Bonilla DO [address] [place] [address] [id number] PCP - General Family Medicine 07/05/19 Rc Campo MD [address] [address] PCP - Hospice Attending 11/14/24 Juan Herrera MD [address] [place] [address] [phone] Infection Control Preventionist Cardiovascular Disease 11/14/20 Mona Islas NP [address] [place] [address] [phone] Nurse Practitioner 05/27/23 documented as of this encounter
[2024-12-22 01:28] VITALS: BP 108/67; PULSE 75; RESP 16; O2SAT 98
== END 2024-12-22 02:09 | disposition hospice, home (50) ==
PROVIDERS: Emergency Provider Physician Assistant; PCP Family Medicine
DX: S02.2XXA Fracture of nasal bones, initial encounter for closed fracture (principal); S05.12XA Contusion of eyeball and orbital tissues, left eye, initial encounter; S05.11XA Contusion of eyeball and orbital tissues, right eye, initial encounter; Z23 Encounter for immunization; G30.9 Alzheimer's disease, unspecified; F02.80 Dementia in other diseases classified elsewhere, unspecified severity, without behavioral disturbance, psychotic disturbance, mood disturbance, and anxiety; N18.2 Chronic kidney disease, stage 2 (mild); I50.9 Heart failure, unspecified; E11.22 Type 2 diabetes mellitus with diabetic chronic kidney disease; I12.9 Hypertensive chronic kidney disease with stage 1 through stage 4 chronic kidney disease, or unspecified chronic kidney disease; E78.5 Hyperlipidemia, unspecified; K21.9 Gastro-esophageal reflux disease without esophagitis; Z66 Do not resuscitate; W06.XXXA Fall from bed, initial encounter
CPT/HCPCS: 70450; 70486; 72125; 90471; 90715; 99284

== ENCOUNTER 2025-01-26 06:56 | Emergency (ER) | payer MEDICARE, MEDICAID, SELFPAY ==
[2025-01-26] VITALS (9 sets, daily range): BP systolic 152–170; BP diastolic 83–84; PULSE 71–83; RESP 16–21; TEMP 37.6; O2SAT 94–100
--- NOTE | ~2025-01-26 | CT_ITS ---
CLINICAL INDICATION: Lower abdominal pain COMPARISON: None. TECHNIQUE: Multiple contiguous axial images of the abdomen and pelvis were performed following the ad ministration of with 100 mL Omnipaque-350 intravenous contrast The dose-length product (DLP) was 718.07 mGy-cm. Automated exposure control and iterative reconstruction technique were employed. FINDINGS/OBSERVATIONS: Visualized lower thorax: Right basilar atelectasis. The remainder of the bilateral lung bases are otherwise clear. The heart is enlarged and from the house, without pericardial effusion. Large hiatal hernia is present. Liver: The liver demonstrates homogeneous enhancement and is not enlarged. Gallbladder and biliary system: The gallbladder is surgically absent. Pancreas: The pancreas demonstrates fatty atrophy but otherwise enhances homogeneously without ductal dilatatio n. Spleen: The spleen enhances homogeneously and is not enlarged. Kidneys: The bilateral kidneys demonstrate a nodular contour, but otherwise enhance symmetrically without hydr onephrosis or renal calculi. Adrenal glands: Unremarkable. Gastrointestinal tract: Fecal stasis within the rectum, extending to the level of the umbilicus, likely the source of lower a bdominal pain. Mural thickening and surrounding inflammatory change is present. Appendix: The appendix is not definitively visualized. However, no pericecal inflammatory change is identified suggest the presence of acute appendicitis. Vasculature: Calcified atherosclerotic disease. Lymph nodes: No pathologically enlarged or morphologically suspicious lymph nodes within the retroperitoneum or at the root of the mesentery. Pelvic structures: The bladder is decompressed with a Connolly catheter, limiting its evaluation. The uterus is either atrophic or surgically absent. Body wall and musculoskeletal: Age-appropriate degenerative disease within the lower thoracic and lumbosacral spines. IMPRESSION: Findings consistent with fecal impaction, to the level of the umbilicus. Reviewed, dictated and finalized at location A.
--- OUTSIDE RECORDS SUMMARY | 2025-01-26 07:28 | XMS_ITS | Encounter Summary ---
Author Organization [facility] Healthcare Address [address] [place] [address] Care Team Providers Care Split Leather Department Supervisor Name Role Phone Donn Bonilla DO Primary Care Provider + Juan Herrera MD Unavailable Mona Islas NP Unavailable [phone] Rc Campo MD Unavailable [phone] Encounter Details Date Type Department Care Team (Late st Contact Info) Description 12/21/2024 Orders Only [facility] Information Management [address] [place] [address] Scanning, Provider Social History Tobacco Use Types Packs/Day Years Used Date Smoking Tobacco: Never Smokeless Tobacco: Never Alcohol Use Standard Drinks/Week Comments No 0 (1 standard drink = 0.6 oz pur e alcohol) [facility] Utilities Answer Date Recorded In the past 12 months has [employer] electric, gas, oil, or water company threatened [...] often do you attend chur ch or gnosticism services? Never 11/03/2024 Do you belong to any clubs o r organizations such as baptist groups, unions, fraternal or athletic groups, or [...] time in the past 12 m [facility], were you homeless or living in a snf (including now)? No 11/03/2024 Personal Safety Answer Date Recorded Have you ever been in or are you currently in a harmful physical or emotional relationship or is someone making you feel afraid or unsafe? Patient unable to answer 11/02/2024 Comments No Sex and Gender Information Value Date Recorded Sex Assigned at Not on file Legal Sex Female 7:06 PM DIRECTOR RECORDS MANAGEMENT Gender Identity Not on file Sexual Orientation Not on file documented as of this encounter Plan of Treatment Not on file documented as of this encounter Procedures Procedure Name Priority Date/Time Associated Diagnosis Comments SCAN - RADIOLOGY/IMAGING 12/21/2024 documented in this encounter Results * SCAN - RADIOLOGY/IMAGING (12/21/2024) Anatomical Region Laterality Modality Other us Provider Scanning Final Result documented in this encounter Visit Diagnoses Not on filedocumented in this encounter 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) - not eligible for IP review until 6 months after positive culture - Colin HAM, RN 11/15/24 11/04/2024 11/04/2024 documented as of this encounter Care Teams Split Leather Department Supervisor Relationship Specialty Start Date End Date Donn Bonilla DO [address] [place] [id number] PCP - General Family Medicine 07/05/19 Rc Campo MD [address] [address] PCP - Hospice Attending 11/14/24 Juan Herrera MD [address] [place] [id number] Corporate Investigator Cardiovascular Disease 11/14/20 Mona Islas NP [facility] [address] [address] Nurse Practitioner 05/27/23 documented as of this encounter
--- OUTSIDE RECORDS SUMMARY | 2025-01-26 07:28 | XMS_ITS | Continuity of Care Document ---
Author Organization [facility] Address [address] [place] [address] Phone Care Team Providers Care Manager Of [facility] Name Role Phone Stuart Matias MD Unavailable Unavailable Allergies, Adverse Reactions, Alerts Substance Reaction Status Criticality CEPHALEXIN MONOHYDRATE Anaphylaxis Active No In formation penicillin G Anaphylaxis Active No Information sulfacetamide Anaphylaxis Active No Information Medications Medication Instructions Dosage Effective Dates (start - stop) Status Comments NASONEX 50MCG APPLICS 2 QD-daily - Active FLOVENT HFA 44MCG PUFFS 2 BID - Active MAXAIR AUTOHALER 0.2 MG AERO 2 Q 4HR - Active FEXOFENADINE HCL 180 MG TABLET 1 QD-daily - Active FEXOFENADINE HCL 180 MG TABLET 1 QD-daily - No Longer Active FEXOFENADINE HCL 180 MG TABLET 1 QD-daily - No Longer Active NASACORT AQ NASAL SPRAY 2 QD-daily - No Longer Active MAXAIR AUTOHALER 0.2 MG AERO 2 Q 4HR - No Longer Active ADVAIR DISKUS 100-50MCG DISKS 1 BID - No Longer Active FEXOFENADINE HCL 180 MG TABLET 1 QD-daily - No Longer Active FEXOFENADINE HCL 180 MG TABLET 1 QD-daily - No Longer Active MAXAIR AUTOHALER 0.2 MG AERO 2 Q 4HR - No Longer Active NASACORT AQ NASAL SPRAY 2 QD - No Longer Active ASMANEX TWISTHALER 220 MCG #30 1 QD - No Longer Active PREDNISONE 20MG TABS 0 DIRECTE 2005 - No Longer Active 3 tabs for 2 days then 2 abs for 3-5 days FEXOFENADINE HCL 180 MG TABLET 1 QD - No Longer Active FEXOFENADINE HCL 180 MG TABLET 1 QD - No Longer Active FEXOFENADINE HCL 180 MG TABLET 1 QD - No Longer Active NASACORT AQ NASAL SPRAY 2 QD - No Longer Active ASMANEX 220MCG(30) PUFFS 1 QD - No Longer Active MAXAIR AUTOHALER 0.2 MG AERO 2 Q 4HR - No Longer Active FEXOFENADINE HCL 180 MG TABLET 1 QD - No Longer Active ADVAIR 100/50 DISKUS 1 BID 2004 - No Longer Active VERONICA 180 MG TABLET 1 QD - No Longer Active MAXAIR AUTOHALER 0.2 MG AERO 2 Q 4HR - No Longer Active NASACORT AQ NASAL SPRAY 2 QD - No Longer Active PREDNISONE 20MG TABS 2 QD 2004 - No Longer Active ADVAIR DISKUS 250-50MCG DISKS 1 BID - No Longer Active MAXAIR AUTOHALER 0.2 MG AERO 2 Q 4HR - No Longer Active NASACORT AQ NASAL SPRAY 2 QD - No Longer Active VERONICA 180 MG TABLET 1 QD - No Longer Active FLOVENT 110MCG INHALER 2 BID - No Longer Active PREDNISONE 20MG TABS 2 QD 2002 - No Longer Active MAXAIR AUTOHALER 0.2MG AERO 2 Q 4HR - No Longer Active VERONICA 180MG TABLET 1 QD 2002 - No Longer Active NASACORT AQ NASAL SPRAY 2 QD - No Longer Active VERONICA 180MG TABS 1 QD - No Longer Active FLOVENT 110MCG INHALER 2 BID - No Longer Active VERONICA 60MG CAPSULE 1 BID 2001 - No Longer Active MAXAIR AUTOHALER 0.2MG AERO 2 Q 4HR - No Longer Active NASACORT AQ NASAL SPRAY 2 QD - No Longer Active MAXAIR AUTOHALER 0.2MG PUFFS 2 Q 4HR - No Longer Active VERONICA 60MG CAPS 1 BID No Longer Active NASACORT AQ 55MCG APPLICS 2 QD - No Longer Active FLOVENT 110MCG PUFFS 2 BID 1999 - No Longer Active Advance Directives Directive Yes / No Effective Date File Name No Information Encounters Encounter Description Practice Location Reason(s) For Visit Diagnoses Date Provider Providers Copied on Encounter [facility], [address], [place], [place], [id number], tel:[phone] [facility] No Information 1 Florencio Davidson. [address], [id number], [place]. tel:[phone] [facility], [address], [place], [place], [id number], tel:[phone] [facility] ALLERGIC RHINITIS NECINTRINSIC ASTHMA NOS 8 Florencio Davidson. [address] [place], [id number], . tel:[phone] [facility], [address], [place], [place], [id number], tel:[phone] [facility] ACUTE URI NOSEXT ASTHMA W(ACUTE) EXAC 3-200 6 [facility]. [address] [place] [address], [address], . [facility], [address], [place], [place], [id number], tel:[phone] [facility] No Information 0 5-200 4 Florencio Davidson. [address] [place] [address], [id number], . tel:[phone] [facility], [address], [place], [place], [id number], tel:[phone] [facility] ESOPHAGEAL REFLUX 4-200 0 Florencio Davidson. [address] [place] [address], [id number], . tel:[phone] Family History Family Member Type Diagnosis Age At Onset No Information Payers Payer name Insurance type Covered democrat ID Authoriza tion(s) No Information Social History Type Description Quantity Date Captured Comments Sex Female Smoking Status No Information Sexual Orientation Straight or heterosexual Chief Complaint And Reason For Visit No Information Reason For Referral Reason For Referral No Information History Of Present Illness Encounter Date Complaint History Of Prese nt Illness No Information Functional Status Date Functional Assessmen t No Information Instructions Date Instruction Additional Infor mation No Information Assessments Type Assessment Date No Information Patient Care Teams Name Effective Dates (start - stop) Status Members No Information
--- OUTSIDE RECORDS SUMMARY | 2025-01-26 07:29 | XMS_ITS | Clinical Summary ---
Author Organization [facility] Address [address] [place] [address] Care Team Providers Care Power Sweeper Operator Name Role Phone Donn Bonilla DO Primary Care Provider + Juan Herrera MD Unavailable Mona Islas NP Unavailable [phone] Allergies Active Allergy Reactions Criticality Noted Date Comments Atorvastatin Muscle pain Medium 11/14/2020 Cephalexin Hives,Rash Medium 02/11/2018 Hives Gentamicin Swelling,Redness Medium 02/11/2018 From eye drops Swelling Pregabalin Diarrhea Medium 04/13/2017 Patient had severe diarrhea 2 days after starting Lyrica Other reaction(s): Confusion Confusion Sulfa (Sulfonamide Antibiotics) Hives,Urticaria,Rash High 11/29/2017 Hives Medications cloNIDine (CATAPRES-TTS) 0.2 mg/24 hrIndications:hy pertension [The details of the medication are not available because there are pending changes by a home health clinician.] 4 patch 11 11/20/19 25 026 Active Additional Information Patient not taking.Reported on 12/28/2024 morphine concentrated solution 100 mg/5 mLIndications:Se pati Pain with Opioid Tolerance,dyspne a Take 10 mg by mouth every hour as needed for pain (dyspnea). Indications: severe pain with opioid tolerance, dyspnea 11/15/19 25 Active LORazepam (ATIVAN) 0.5 mg tabletIndication s:anxiety,pain, dyspnea, sleep, nausea Take 0.5 mg by mouth every 2 (two) hours as needed for anxiety (pain, dyspnea, sleep, nausea). Indications: anxious, pain, dyspnea, sleep, nausea 11/15/19 25 Active hyoscyamine (LEVSIN) 0.125 mg SL tabletIndication s:Sialorrhea Take 0.125 mg by mouth every 4 (four) hours as needed (terminal secretions). Indications: excessive saliva production 11/15/19 25 Active bisacodyL (DULCOLAX) 10 mg suppositoryIndic ations:constipat ion Insert 10 mg into the rectum daily as needed for constipation. Indications: constipation 11/15/19 25 Active acetaminophen (TYLENOL) 650 mg suppositoryIndic ations:Fever,Hea dache Disorder,Pain Insert 650 mg into the rectum every 4 (four) hours as needed for fever, headaches or pain. Indications: fever, headache, pain 11/15/19 25 Active menthol-zinc oxide 0.44-20.6 % ointmentIndicati ons:skin irritation Apply 1 Application topically 4 (four) times a day as needed (skin breakdown). Indications: skin irritation 11/18/19 25 Active LORazepam (ATIVAN) 0.5 mg tabletIndication s:anxiety,Insomn ia Take 0.5 mg by mouth every evening. Indications: anxious, difficulty sleeping Active FLUoxetine (PROzac) 10 mg tablet/capsuleIn dications:Anxiet y with Depression Take 10 mg by mouth daily. Indications: anxiousness associated with depression 12/29/19 25 Active doxycycline (VIBRAMYCIN) 100 mg capsuleIndicatio ns:Skin/Soft Tissue Infection Take 100 mg by mouth 2 (two) times a day. Indications: Skin/Soft Tissue Infection 12/30/19 25 025 Discontin ued(Thera py completed ) Active Problems Problem Noted Date Diagnosed Date [...] 09/24/2020 Assessment & Plan (09/24/2020 7:33 PM LOCOMOTIVE ENGINEER ELECTRIC): Advised to get labs now, ordered STAT CBC, CMP, and lipase. Instructed to go to ER overnight for worsening symptoms. Recommended calling tomorrow to schedule follow-up with PCP. Subconjunctival hemorrhage of right eye 09/24/19 Assessment & Plan (09/24/2020 7:32 PM LOCOMOTIVE ENGINEER ELECTRIC): Advised not to stop Xarelto without consulting with PCP and instructed to keep upcoming appointment with county manager. 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 Pelvic fracture 01/15/2020 Recurrent falls while walking 01/15/2020 Restless leg syndrome 01/15/2020 Dupuytren contracture 01/15/2020 Chronic kidney disease (CKD), stage III (moderat e) 07/05/2019 Lumbar spinal stenosis 07/05/2019 OAB (overactive bladder) 07/05/2019 Liver mass 06/21/2018 Hernia, inguinal, unilateral 06/09/2018 KIMBERLY (acute kidney injury) ([facility] 05/20/2018 Assessment & Plan (02/02/2022 2:53 PM CDT): - resolved Chronic deep vein thrombosis (DVT) of proximal vein of lower extremity ([facility]) 05/20/2018 Weakness 05/19/2018 DM2 (diabetes mellitus, type [...] reglan Assessment & Plan (09/24/2020 7:31 PM LOCOMOTIVE ENGINEER ELECTRIC): Chronic, stable, controlled with medication-continued on BID Pepcid, advised follow-up with PCP to discuss EGD. Hiatal hernia 04/11/2018 Depression 04/11/2018 History of deep venous throm bosis (DVT) of distal vein of right lower extremity 04/11/2018 Primary osteoarthritis of left knee 02/11/2018 Overview (02/11/2018): Added automatically from request for surgery [id number] History of esophageal stricture 10/25/2017 Neuropathy 07/21/2017 Low iron 06/24/2016 Dysphagia 01/24/2015 Assessment & Plan (09/24/2020 7:32 PM LOCOMOTIVE ENGINEER ELECTRIC): Chronic, worsening, with history of esophageal strictures, [...] 10/21/2022 Assessment & Plan (09/24/2020 7:33 PM LOCOMOTIVE ENGINEER ELECTRIC): Advised to get labs now, ordered STAT [...] Encounters Date Type Department Care Team Description 01/17/2025 11:00 AM CDT Home Care Visit [address] [place] [address] Sharon Avila, RN SN HOSPICE DISCHARGE 01/17/2025 11:00 AM CDT Home Care Visit [address] [place] [address] Kaushik Smith CNA AIDE HOME VISIT 01/17/2025 Plan of Care Documentation [address] [place] [address] 01/15/2025 10:00 AM CDT Home Care Visit [address] [place] [address] Sharon Avila, RN SN HOSPICE VISIT 01/11/2025 3:00 AM CDT Home Care Visit [address] [place] [address] Sharon Avila, RN SN HOSPICE VISIT 01/10/2025 2:30 PM CDT Home Care Visit [address] [place] [address] Luis Luna M.A. RECORD PRESS OPERATOR HOSPICE VISIT 01/10/2025 10:15 AM CDT Home Care Visit [address] [place] [address] Qi May CNA AIDE HOME VISIT 01/08/2025 10:00 AM CDT Home Care Visit [address] [place] [address] Sharon Avila, RN SN HOSPICE VISIT 01/04/2025 9:30 AM CDT Home Care Visit [address] [place] [address] Sharon Avila, RN SN HOSPICE VISIT 01/03/2025 1:00 PM CDT Home Care Visit [address] [place] [address] Cara Hsu [facility] H[facility]PICE VISIT 01/03/2025 10:00 AM CDT Home Care Visit [address] [place] [address] Kaushik Smith, PATTERNMAKER HAND AIDE HOME VISIT 01/03/2025 Plan of Care Documentation [address] [place] [address] 01/01/2025 10:30 AM CDT Home Care Visit [address] [place] [address] Sharon Avila, RN SN HOSPICE VISIT 12/28/2024 10:30 AM CDT Home Care Visit [address] [place] [address] Sharon Avila, RN SN HOSPICE VISIT 12/27/2024 12:00 PM CDT Home Care Visit [address] [place] [address] Kaushik Smith, PATTERNMAKER HAND AIDE HOME VISIT 12/26/2024 9:15 AM CDT Home Care Visit [address] [place] [address] Neeta Gagnon [facility] H[facility]PICE VISIT 12/26/2024 Home Care Visit [address] [place] [address] Neeta Gagnon [employer] [facility] [facility] H[facility] PHONE CALL 12/25/2024 12:30 PM CDT Home Care Visit [facility] [address] [facility] [address] [address] [place] [address] Sharon Avila, RN SN HOSPICE VISIT 12/22/2024 Home Care Visit [facility] [address] [facility] [address] [place] [address] Neeta Gagnon, FASHION BUYING INTERNSHIP [employer] [facility] H[facility]ICE PHONE CALL 12/22/2024 Home Care Visit [facility] [address] [facility] [address] [place] [address] Neeta Gagnon, [facility] 12/21/2024 9:00 AM CDT Home Care Visit [facility] [address] [facility] [address] [place] [address] Sharon Avila, RN SN HOSPICE VISIT 12/21/[address] [facility] Health Information Management [address] [place] [address] Scanning, Provider 12/21/2024 Home Care Visit [facility] [address] [facility] [address] [place] [address] Mona Macario, JU CASE COMMUNICATION 12/21/2024 Home Care Visit [facility] [address] [facility] [address] [place] [address] Cathy Bolden RN SN TRIAGE ENCOUNTER 12/21/2024 Home Care Visit [facility] [address] [facility] [address] [place] [address] Neeta Gagnon [facility] H[facility]PICE PHONE CALL 12/21/2024 Home Care Visit [facility] [address] [facility] [address] [place] [address] Sharon Avila, RN CASE COMMUNICATION 12/21/2024 Home Care Visit [place] [address] [facility] [address] [place] [address] Emilie Blair, RN SN TRIAGE ENCOUNTER 12/21/2024 Home Care Visit [address] [place] [address] Emilie Blair, RN SN TRIAGE ENCOUNTER 12/21/2024 Home Care Visit [address] [place] [address] Cathy Bolden, RN SN TRIAGE ENCOUNTER 12/20/2024 Plan of Care Documentation [address] [place] [address] 12/18/2024 2:00 PM CDT Home Care Visit [facility] [address] [place] [address] [address] [place] [address] Sharon Avila, JU SN HOSPICE VISIT 12/16/2024 Home Care Visit [address] [place] [address] Leeanne Avila RN SN TRIAGE ENCOUNTER 12/14/2024 10:00 AM CDT Home Care Visit [address] [place] [address] Sharon Avila, JU SN HOSPICE VISIT 12/13/2024 2:00 PM CDT Home Care Visit [address] [place] [address] Luis Luna M.A. RECORD PRESS OPERATOR HOSPICE VISIT 12/13/2024 12:00 PM CDT Home Care Visit [address] [place] [address] Neeta Gagnon, FASH[employer] BUYING INTER[employer] [facility] H[facility]PICE VISIT 12/13/2024 11:00 AM CDT Home Care Visit [address] [place] [address] Kaushik Smith CNA AIDE HOME VISIT 12/12/2024 Home Care Visit [address] [place] [address] Dania Shelton, RN SN TRIAGE ENCOUNTER 12/11/2024 12:00 PM CDT Home Care Visit [address] [place] [address] Sharon Avila, RN SN HOSPICE VISIT 12/09/2024 Home Care Visit [address] [place] [address] Norris Goldstein RN SN TRIAGE ENCOUNTER 12/07/2024 9:30 AM CDT Home Care Visit [address] [place] [address] Sharon Avila, RN SN HOSPICE VISIT 12/07/2024 Home Care Visit [address] [place] [address] Sharon Avila, RN CASE COMMUNICATION 12/06/2024 11:00 AM CDT Home Care Visit [address] [place] [address] Kaushik Smith, PATTERNMAKER HAND AIDE HOME VISIT 12/06/2024 Plan of Care Documentation [address] [place] [address] 12/04/2024 12:30 PM CDT Home Care Visit [address] [place] [address] Sharon Avila, JU SN HOSPICE VISIT 12/01/2024 12:00 PM CDT Home Care Visit [address] [place] [address] Kaushik Smith, PATTERNMAKER HAND AIDE HOME VISIT 11/30/2024 1:00 PM CDT Home Care Visit [address] [place] [address] Sharon Avila, RN SN HOSPICE VISIT 11/27/2024 11:00 AM CDT Home Care Visit [address] [place] [address] Siri Goodrich, JU SN HOSPICE VISIT 11/24/2024 10:00 AM CDT Home Care Visit [facility] [address] [facility] [address] [place] [address] LuisEricaCHARLOTTE voss AIDE HOME VISIT 11/23/2024 11:55 AM CDT Home Care Visit [facility] [address] [place], [place] [address]y [address] [place] [address] Sharon Avila, RN SN HOSPICE VISIT 11/22/2024 12:30 PM CDT Home Care Visit [address] [place] [address] Naomie Darby, JU SN HOSPICE VISIT 11/22/2024 11:00 AM CDT Home Care Visit [address] [place] [address] Neeta Gagnon [employer] [facility] [facility] [facility] H[facility]ICE VISIT 11/22/2024 Home Care Visit [address] [place] [address] Sharon Avila, RN CASE COMMUNICATION 11/22/2024 Home Care Visit [address] [place] [address] Emilie Blair, RN SN TRIAGE ENCOUNTER 11/22/2024 Plan of Care Documentation [address] [place] [address] 11/22/2024 Home Care Visit [address] [place] [address] Sharon Avila, RN CASE COMMUNICATION 11/22/2024 Home Care Visit [address] [place] [address] Sharon Avila, RN CASE COMMUNICATION 11/22/2024 Home Care Visit [address] [place] [address] Emilie Blair, RN SN TRIAGE ENCOUNTER 11/22/2024 Home Care Visit [address] [place] [address] Cathy Bolden, RN SN TRIAGE ENCOUNTER 11/20/2024 10:30 AM CDT Home Care Visit [address] [place] [address] Sharon Avila, RN SN HOSPICE VISIT 11/19/2024 Home Care Visit [address] [place] [address] Bandar Angeles, RN SN TRIAGE ENCOUNTER 11/17/2024 11:00 AM CDT Home Care Visit [address] [place] [address] Siri Goodrich, JU SN HOSPICE VISIT 11/16/2024 6:00 PM CDT Home Care Visit [address] [place] [address] Elfego Alvarez, JU SN HOSPICE VISIT 11/16/2024 2:30 PM CDT Home Care Visit [address] [place] [address] Luis Luna M.A. RECORD PRESS OPERATOR HOSPICE ASSESSMENT 11/16/2024 Home Care Visit [address] [place] [address] Miranda Garcia, RN SN TRIAGE ENCOUNTER 11/16/2024 Home Care Visit [address] [place] [address] Miranda Garcia, RN SN TRIAGE ENCOUNTER 11/16/2024 Home Care Visit [address] [place] [address] BoldenCathy pruitt RN SN TRIAGE ENCOUNTER 11/15/2024 11:30 AM CDT Home Care Visit [address] [place] [address] Siri Goodrich, JU SN HOSPICE VISIT 11/15/2024 11:15 AM CDT Home Care Visit [address] [place] [address] Neeta Gagnon [facility] HOSPICE ASSESSMENT 11/15/2024 Home Care Visit [address] [place] [address] Neeta Gagnon [facility] H[facility]PICE PHONE CALL 11/15/2024 Home Care Visit [address] [place] [address] Anh Park RN SN TRIAGE ENCOUNTER 11/15/2024 Orders Only [facility] Palliative Care [address] [place] [address] Daniel Rodriguez MD 11/14/2024 12:30 PM CDT Home Care Visit [address] [place] [address] Divya Whittaker RN SN HOSPICE COMPREHENSIVE ASSESSMENT 11/14/2024 Plan of Care Documentation [address] [place] [address] 11/02/2024 12:26 PM LOCOMOTIVE ENGINEER ELECTRIC - 11/14/2024 2:18 PM CDT Hospital Encounter [place] [address] [address] [place] [address] Gee Yao DO Smith, MD Juan M SantosConor MD Lopez, Manuel Emilio, MD Altered mental status, unspecified altered mental status type (Primary Dx); Elevated troponin I level; Severe dementia, unspecified dementia type, unspecified whether behavioral, psychotic, or mood disturbance or anxiety (HCC) Discharge Disposition: Discharge to a intermediate manager care hospital 11/01/2024 Telephone [facility] [address] [facility] [address] [place] [address] Donn Bonilla, DO Medical Question/Miscellaneo us 10/30/2024 Telephone [facility] Primary Care [facility] [facility] [address] [place] [address] Donn Bonilla, DO TRAM Questions from Last 3 Months Immunizations Immunization Administration [...] Right CATARACT EXTRACTION, BILATERAL CARDIAC CATHETERIZATION . E's, [id number]? Medical History Medical History Date Comments Major [...] drink = 0.6 oz pur e alcohol) [facility] Utilities Answer Date Recorded In the past 12 months has th e electric, gas, oil, or water company [...] often do you attend chur ch or mormonism services? Never 11/03/2024 Do you belong to any clubs o r organizations such as faith groups, unions, fraternal or athletic groups, or [...] any time in the past 12 m [facility], were you homeless or living in a chcf (including now)? No 11/03/2024 Personal Safety Answer Date Recorded Have you ever been in or are you currently in a harmful physical or emotional relationship or is someone making you feel afraid or unsafe? Patient unable to answer 11/02/2024 Comments No Sex and Gender Information Value Date Recorded Sex Assigned at Not on file Legal Sex Female 7:06 PM LOCOMOTIVE ENGINEER ELECTRIC Gender Identity Not on file Sexual Orientation Not on file Obstetrics History Last Filed Vital Signs Vital Sign Reading Time Taken Comments Blood Pressure 158/70 01/15/2025 9:58 AM CDT Pulse 84 01/15/2025 9:58 AM CDT Temperature 37 C (98.6 F) 01/15/2025 9:58 AM CDT Respiratory Rate 18 01/15/2025 9:58 AM CDT Oxygen Saturation 98% 01/15/2025 9:58 AM CDT Inhaled Oxygen Concentration - - Weight 69.4 kg (153 lb) 11/14/2024 3:00 PM CDT Height 162.6 cm (5' 4) 11/14/2024 3:00 PM CDT Body Mass Index 26.26 11/14/2024 3:00 PM CDT Plan of Treatment Health Maintenance Due Date Last Done Comments Dilated Eye Exam 1941 Foot Exam 1941 Hepatitis B Screening 1959 Zoster Vaccine (1 of 2) 1991 Osteoporosis Screening-Bone Density Scan 02/28/2022 02/29/2020 Covid-19 Vaccine (3 - 2023-2 5 season) 2024 01/25/2021, 12/28/2020 Well Visit [...] history exists Medical Devices Implanted Type Area Casing Runner Device Identifier Shelf Expiration Date Model / Serial / Lot [employer] 3122-040 Smartset Medium Viscosity Cement 40gm Bone Sterile - [id number] Implanted:Qty: 1 on 04/12/2018 by Adrian Powell MD at [facility] [employer] [id number] 07/29/2019 3122-040 / / [employer] 3122-040 Smartset Medium Viscosity Cement 40gm Bone Sterile - [id number] Implanted:Qty: 1 on 04/12/2018 by Adrian Powell MD at [facility] [employer] [id number] 06/29/2019 3122-040 / / [employer] [id number] Attune 5mm Cruciate Retaining Fix Bearing Knee 5 Insert Tibial - [id number] Implanted:Qty: 1 on 04/12/2018 by Adrian Powell MD at [facility] [employer] [id number] 12/27/2022 [id number] / / [employer] [id number] Attune Cemented Cruciate Retaining Knee Left 5 Narrow Component - [id number] Implanted:Qty: 1 on 04/12/2018 by Adrian Powell MD at [facility] [employer] [id number] 12/28/2027 [id number] / / [employer] [id number] Attune S+ Cement Fix Bearing Knee 5 Baseplate Tibial - [id number] Implanted:Qty: 1 on 04/12/2018 by Adrian Powell MD at [facility] [employer] [id number] 09/29/2027 [id number] / / Procedures Procedure Name Priority Date/Time Associated Diagnosis Comments SCAN - RADIOLOGY/IMAGING 12/21/2024 POCT GLUCOSE DEVICE Routine 11/14/2024 9 :05 [...] GLUCOSE DEVICE Routine 11/05/2024 1 :22 AM LOCOMOTIVE ENGINEER ELECTRIC POCT GLUCOSE DEVICE Routine 11/04/2024 1 0:34 PM LOCOMOTIVE ENGINEER ELECTRIC URINALYSIS, MICROSCOPIC ONLY Routine 11/04/2024 6:17 PM LOCOMOTIVE ENGINEER ELECTRIC URINE CULTURE Routine 11/04/2024 6:17 PM LOCOMOTIVE ENGINEER ELECTRIC URINALYSIS AND REFLEX TO MICROSCOPIC AND CULTURE Routine 11/04/2024 6:17 PM LOCOMOTIVE ENGINEER ELECTRIC POCT GLUCOSE DEVICE Routine 11/04/2024 5 :07 PM LOCOMOTIVE ENGINEER ELECTRIC APTT Routine 11/04/2024 2:21 PM LOCOMOTIVE ENGINEER ELECTRIC DIFFERENTIAL AUTO Routine 11/04/2024 8:5 4 AM LOCOMOTIVE ENGINEER ELECTRIC APTT Timed 11/04/2024 8:54 AM LOCOMOTIVE ENGINEER ELECTRIC CBC WITH AUTO DIFFERENTIAL Routine 11/04/2024 8:54 AM LOCOMOTIVE ENGINEER ELECTRIC POCT GLUCOSE DEVICE Routine 11/04/2024 8 :47 AM LOCOMOTIVE ENGINEER ELECTRIC POCT GLUCOSE DEVICE Routine 11/04/2024 3 :35 AM LOCOMOTIVE ENGINEER ELECTRIC APTT Timed 11/04/2024 12:10 AM LOCOMOTIVE ENGINEER ELECTRIC POCT GLUCOSE DEVICE Routine 11/03/2024 1 1:02 PM LOCOMOTIVE ENGINEER ELECTRIC POCT GLUCOSE DEVICE Routine 11/03/2024 7 :11 PM LOCOMOTIVE ENGINEER ELECTRIC APTT Timed 11/03/2024 4:26 PM LOCOMOTIVE ENGINEER ELECTRIC POCT GLUCOSE DEVICE Routine 11/03/2024 4 :01 PM LOCOMOTIVE ENGINEER ELECTRIC POCT GLUCOSE DEVICE Routine 11/03/2024 1 1:57 AM LOCOMOTIVE ENGINEER ELECTRIC TRANSTHORACIC ECHO (TTE) LIMITED/FOLLOW UP WO DOPPLER/CF W CONTRAST Routine 11/03/2024 11:55 AM LOCOMOTIVE ENGINEER ELECTRIC APTT Timed 11/03/2024 9:36 AM LOCOMOTIVE ENGINEER ELECTRIC POCT GLUCOSE DEVICE Routine 11/03/2024 8 :00 AM LOCOMOTIVE ENGINEER ELECTRIC POCT GLUCOSE DEVICE Routine 11/03/2024 4 :09 AM LOCOMOTIVE ENGINEER ELECTRIC DIFFERENTIAL AUTO Routine 11/03/2024 2:2 1 AM LOCOMOTIVE ENGINEER ELECTRIC APTT Timed 11/03/2024 2:21 AM LOCOMOTIVE ENGINEER ELECTRIC CBC WITH AUTO DIFFERENTIAL Routine 11/03/2024 2:21 AM LOCOMOTIVE ENGINEER ELECTRIC LIPID PANEL Routine 11/03/2024 2:21 AM LOCOMOTIVE ENGINEER ELECTRIC POCT GLUCOSE DEVICE Routine 11/03/2024 1 2:21 AM LOCOMOTIVE ENGINEER ELECTRIC POCT GLUCOSE DEVICE Routine 11/02/2024 8 :[address] CHEST ABDOMEN PELVIS W CONTRAST IP Routine 11/02/2024 8:01 PM LOCOMOTIVE ENGINEER ELECTRIC TROPONIN T HIGH-SENSITIVITY 6-HOUR Timed 11/02/2024 7:24 PM LOCOMOTIVE ENGINEER ELECTRIC POCT GLUCOSE DEVICE Routine 11/02/2024 6 :48 PM LOCOMOTIVE ENGINEER ELECTRIC MAGNESIUM Add-On 11/02/2024 5:54 PM LOCOMOTIVE ENGINEER ELECTRIC APTT STAT 11/02/2024 5:54 PM LOCOMOTIVE ENGINEER ELECTRIC CBC WITHOUT DIFFERENTIAL STAT 11/02/2024 5:54 PM LOCOMOTIVE ENGINEER ELECTRIC PROTIME-INR STAT 11/02/2024 5:54 PM LOCOMOTIVE ENGINEER ELECTRIC BLOOD CULTURE STAT 11/02/2024 5:54 PM LOCOMOTIVE ENGINEER ELECTRIC BLOOD CULTURE STAT 11/02/2024 5:54 PM LOCOMOTIVE ENGINEER ELECTRIC TROPONIN T HIGH-SENSITIVITY 4-HR Timed 11/02/2024 4:15 PM LOCOMOTIVE ENGINEER ELECTRIC SEPSIS LACTATE WITH REFLEX Timed 11/02/2024 3:15 PM LOCOMOTIVE ENGINEER ELECTRIC TROPONIN T HIGH-SENSITIVITY 2-HOUR Timed 11/02/2024 3:02 [address]IC [address] HEAD WO CONTRAST ED 11/02/2024 2 :16 PM LOCOMOTIVE ENGINEER ELECTRIC INFLUENZA A/B, RSV, AND COVID-19 PCR STAT 11/02/2024 1:59 PM LOCOMOTIVE ENGINEER ELECTRIC XR CHEST 1 VIEW ED Urgent/IP Urgent 11/02/2024 1:38 PM LOCOMOTIVE ENGINEER ELECTRIC ECG 12-LEAD STAT 11/02/2024 1:19 PM LOCOMOTIVE ENGINEER ELECTRIC URINALYSIS, MICROSCOPIC ONLY STAT 11/02/2024 12:51 PM LOCOMOTIVE ENGINEER ELECTRIC URINE CULTURE Add-On 11/02/2024 12:51 PM LOCOMOTIVE ENGINEER ELECTRIC URINALYSIS AND REFLEX TO MICROSCOPIC AND CULTURE STAT 11/02/2024 12:51 PM LOCOMOTIVE ENGINEER ELECTRIC CRP (ACUTE PHASE) STAT 11/02/2024 12: 39 PM LOCOMOTIVE ENGINEER ELECTRIC ERYTHROCYTE SEDIMENTATION RATE STAT 11/02/2024 12:39 PM LOCOMOTIVE ENGINEER ELECTRIC TROPONIN T HIGH-SENSITIVITY SERIES (BASELINE, 2HR, 4HR, 6HR) STAT 11/02/2024 12:39 PM LOCOMOTIVE ENGINEER ELECTRIC TROPONIN T HIGH-SENSITIVITY STAT 11/02/2024 12:39 PM LOCOMOTIVE ENGINEER ELECTRIC EGFR STAT 11/02/2024 12:39 PM LOCOMOTIVE ENGINEER ELECTRIC DIFFERENTIAL AUTO STAT 11/02/2024 12: 39 PM LOCOMOTIVE ENGINEER ELECTRIC SEPSIS LACTATE WITH REFLEX STAT 11/02/2024 12:39 PM LOCOMOTIVE ENGINEER ELECTRIC COMPREHENSIVE METABOLIC PANEL STAT 11/02/2024 12:39 PM LOCOMOTIVE ENGINEER ELECTRIC CBC WITH AUTO DIFFERENTIAL STAT 11/02/2024 12:39 PM LOCOMOTIVE ENGINEER ELECTRIC HEMOGLOBIN A1C STAT 09/28/2024 12:13 PM LOCOMOTIVE ENGINEER ELECTRIC ALBUMIN CREATININE RATIO, URINE Routine 11/01/2023 9:30 AM LOCOMOTIVE ENGINEER ELECTRIC Medicare annual wellness visit, subsequent Neuropathy Fibromyalgia Dyslipidemia Type 2 diabetes mellitus with stage 3b chronic kidney disease, without long-term current use of insulin (HCC) Stage 3b chronic kidney disease (HCC) DEXA AXIAL SKELETON BONE DENSITY 1 OR MORE SITES 02/29/2020 9:31 AM CDT from Last 3 Months or Most Recently Relevant to Health Maintenance Results * SCAN - RADIOLOGY/IMAGING (12/21/2024) Anatomical Region Laterality Modality Other us Provider Scanning Final Result * POCT glucose (11/14/2024 9:05 AM CDT) [facility] Signature Glucose, POC 152 70 - 199 mg/dL Comment:Testing performed by : [address] [address] Glucose comment 1 Use This Result MARCELINO HAYWOOD Comment:Testing performed by : [address] [address] Glucose comment 2 RN/MD Notified MARCELINO HAYWOOD Comment:Testing performed by : [address] [id number] Blood 11/14/2024 9:05 AM CDT 11/14/2024 9:05 AM CDT Nahid Kim MD LAB POCT ORDERABLES - DEV ICE Final Result [address] [place] [address] * POCT glucose (11/13/2024 8:13 PM CDT) Glucose, POC 184 70 - 199 mg/dL Comment:Testing performed by : [address] [address] Blood 11/13/2024 8:13 PM CDT 11/13/2024 8:13 PM CDT Conor Ventura MD LAB POCT ORDERABLE S - DEVICE Final Result Performing Organization Address [facility] Co de Phone Number [address] [place] [address] * POCT glucose (11/13/2024 7:49 AM CDT) Glucose, POC 139 70 - 199 mg/dL Comment:Testing performed by : [address] [address] Glucose comment 1 Use This Result MARCELINO Comment:Testing performed by : [address] [address] Glucose comment 2 RN/MD Notified MARCELINO Comment:Testing performed by : [address] [address] Blood 11/13/2024 7:49 AM CDT 11/13/2024 7:49 AM CDT Conor Ventura MD LAB POCT ORDERABLE S - DEVICE Final Result Performing Organization Address City/[facility] Co de Phone Number [address] [place] [address] * POCT glucose (11/13/2024 4:21 AM CDT) Glucose, POC 131 70 - 199 mg/dL Comment:Testing performed by : [address] [address] Glucose comment 1 Use This Result MARCELINO Comment:Testing performed by : [address] [address] Blood 11/13/2024 4:21 AM CDT 11/13/2024 4:21 AM CDT Conor Ventura MD LAB POCT ORDERABLE S - DEVICE Final Result [place] [address] [facility] [place] [address] * POCT glucose (11/13/2024 12:22 AM CDT) Glucose, POC 174 70 - 199 mg/dL Comment:Testing performed by : [address] [address] Glucose comment 1 Use This Result MARCELINO Comment:Testing performed by : [address] [address] Blood 11/13/2024 12:2 2 AM CDT 11/13/2024 12:22 AM CDT Conor Ventura MD LAB POCT ORDERABLE S - DEVICE Final Result Performing Organization Address City/[facility]/ZIP Co de Phone Number [place] [id number] [facility] [place] [address] * POCT glucose (11/12/2024 8:50 PM CDT) Glucose, POC 167 70 - 199 mg/dL Comment:Testing performed by : [address] [address] Blood 11/12/2024 8:50 PM CDT 11/12/2024 8:50 PM CDT Conor Ventura MD LAB POCT ORDERABLE S - DEVICE Final Result Performing Organization Address [facility] Co de Phone Number MARCELINO [address] [facility] [place] [address] * POCT glucose (11/12/2024 5:43 PM CDT) Glucose, POC 157 70 - 199 mg/dL Comment:Testing performed by : [address] [address] Glucose comment 1 Use This Result MARCELINO Comment:Testing performed by : [address] [address] Glucose comment 2 RN/MD Notified MARCELINO Comment:Testing performed by : [address] [address] Blood 11/12/2024 5:43 PM CDT 11/12/2024 5:43 PM CDT Conor Ventura MD LAB POCT ORDERABLE S - DEVICE Final Result Performing Organization Address [facility] Co de Phone Number MARCELINO [address] [facility] [place] [address] * POCT glucose (11/12/2024 11:50 AM CDT) Glucose, POC 175 70 - 199 mg/dL Comment:Testing performed by : [address] [address] Glucose comment 1 Use This Result MARCELINO Comment:Testing performed by : [address] [address] Glucose comment 2 RN/MD Notified MARCELINO Comment:Testing performed by : [address] [address] Blood 11/12/2024 11:5 0 AM CDT 11/12/2024 11:50 AM CDT Conor Ventura MD LAB POCT ORDERABLE S - DEVICE Final Result Performing Organization Address [facility] de Phone Number MARCELINO [address] [facility] [place] [address] * POCT glucose (11/12/2024 8:11 AM CDT) Glucose, POC 120 70 - 199 mg/dL Comment:Testing performed by : [facility], [address] [place] [address]., [address] Glucose comment 1 Use This Result MARCELINO Comment:Testing performed by : [address] [address] Glucose comment 2 RN/MD Notified MARCELINO Comment:Testing performed by : [address] [address] Blood 11/12/2024 8:11 AM CDT 11/12/2024 8:11 AM CDT Conor Ventura MD LAB POCT ORDERABLE S - DEVICE Final Result Performing Organization Address [facility] de Phone Number MARCELINO [address] [facility] [place] [address] * POCT glucose (11/12/2024 4:20 AM CDT) Glucose, POC 147 70 - 199 mg/dL Comment:Testing performed by : [address] [address] Glucose comment 1 Use This Result MARCELINO Comment:Testing performed by : [address] [address] Blood 11/12/2024 4:20 AM CDT 11/12/2024 4:20 AM CDT Conor Ventura MD LAB POCT ORDERABLE S - DEVICE Final Result Performing Organization Address City/[facility]/ZIP Co de Phone Number [address] [address] * POCT glucose (11/11/2024 11:52 PM CDT) Glucose, POC 153 70 - 199 mg/dL Comment:Testing performed by : [address] [address] Glucose comment 1 Use This Result MARCELINO Comment:Testing performed by : [address] [address] Blood 11/11/2024 11:5 2 PM CDT 11/11/2024 11:52 PM CDT Conor Ventura MD LAB POCT ORDERABLE S - DEVICE Final Result Performing Organization Address [facility] Co de Phone Number [address] [address] * POCT glucose (11/11/2024 8:09 PM CDT) Glucose, POC 184 70 - 199 mg/dL Comment:Testing performed by : [address] [address] Glucose comment 1 Use This Result MARCELINO Comment:Testing performed by : [address] [address] Blood 11/11/2024 8:09 PM CDT 11/11/2024 8:09 PM CDT Conor Ventura MD LAB POCT ORDERABLE S - DEVICE Final Result Performing Organization Address City/[facility] Co de Phone Number [address] [address] * POCT glucose (11/11/2024 5:40 PM CDT) Glucose, POC 132 70 - 199 mg/dL Comment:Testing performed by : [address] [address] Glucose comment 1 Use This Result MARCELINO Comment:Testing performed by : [facility], [address] [place] [address]., [address] Blood 11/11/2024 5:40 PM CDT 11/11/2024 5:40 PM CDT Conor Ventura MD LAB POCT ORDERABLE S - DEVICE Final Result Performing Organization Address [facility] Co de Phone Number MARCELINO [facility] [place] [address] * POCT glucose (11/11/2024 12:01 PM CDT) [facility] Glucose, POC 177 70 - 199 mg/dL Comment:Testing performed by : [facility], [address] [place] [address]., [address] Glucose comment 1 Use This Result MARCELINO Comment:Testing performed by : [address] [address] Glucose comment 2 RN/MD Notified MARCELINO Comment:Testing performed by : [facility], [address] [place] [address]., [address] Blood 11/11/2024 12:0 1 PM CDT 11/11/2024 12:01 PM CDT Result [facility] Conor Ventura MD LAB POCT ORDERABLE S - DEVICE Final Result Performing Organization Address [facility] Co de Phone Number MARCELINO [facility] [employer] [place] [address] * eGFR (11/10/2024 4:20 AM CDT) [facility] eGFR 84 >=60 mL/min/1. 73 m2 [...] was last reviewed 2021. Testing performed by: [address] [address] Blood 11/10/2024 4:20 AM CDT 11/10/2024 4:39 AM CDT us Conor Ventura MD LAB BLOOD ORDERABL ES Final Result MARCELINO [address] [facility] Department [place] [address] * Differential, auto (11/10/2024 4:20 AM CDT) Neutrophil abs 4.5 1.5 - 6.5 K/cumm Comment:Testing performed by : [address] [address] Imm gran abs 0.0 0.0 - 0.1 K/cumm MARCELINO Comment:Testing performed by : [address] [address] Lymphocyte abs 1.1 0.8 - 3.3 K/cumm MARCELINO Comment:Testing performed by : [address] [address] Monocyte abs 0.5 0.2 - 0.8 K/cumm MARCELINO Comment:Testing performed by : [address] [address] Eosinophil abs 0.2 0.0 - 0.5 K/cumm MARCELINO Comment:Testing performed by : [address] [address] Basophil abs 0.0 0.0 - 0.1 K/cumm MARCELINO Comment:Testing performed by : [address] [address] Neutrophil pct 70.4 % [facility] Comment: Interpretive Data Percent cell count reference ranges are not reported, since discordance with absolute values may lead to misinterpretation of CBC data. Current Interpretive Data was last revised on 2017. Testing performed by: [address] [address] Imm gran pct 0.3 % [facility] Comment: Interpretive Data Percent cell count reference ranges are not reported, since discordance with absolute values may lead to misinterpretation of CBC data. Current Interpretive Data was last revised on 2017. Testing performed by: [address] [address] Lymphocyte pct 16.9 % [facility] Comment: Interpretive Data Percent cell count reference ranges are not reported, since discordance with absolute values may lead to misinterpretation of CBC data. Current Interpretive Data was last revised on 2017. Testing performed by: [address] [address] Monocyte pct 8.4 % [facility] Comment: Interpretive Data Percent cell count reference ranges are not reported, since discordance with absolute values may lead to misinterpretation of CBC data. Current Interpretive Data was last revised on 2017. Testing performed by: [address] [address] Eosinophil pct 3.5 % [facility] Comment: Interpretive Data Percent cell count reference ranges are not reported, since discordance with absolute values may lead to misinterpretation of CBC data. Current Interpretive Data was last revised on 2017. Testing performed by: [address] [address] Basophil pct 0.5 % [facility] Comment: Interpretive Data Percent cell count reference ranges are not reported, since discordance with absolute values may lead to misinterpretation of CBC data. Current Interpretive Data was last revised on 2017. Testing performed by: [address] [address] Blood 11/10/2024 4:20 AM CDT 11/10/2024 4:39 AM CDT us Ananya MEANS LAB BLOOD ORDERABLES Final Re sult MARCELINO [address] [facility] Department [place] [address] * (ABNORMAL) CBC with auto differential (11/10/2024 4:20 AM CDT) WBC 6.3 3.8 - 9.9 K/cumm Comment:Testing performed by : [address] [address] Hgb 12.3 11.9 - 15.5 g/dL MARCELINO Comment:Testing performed by : [address] [address] Hct 39.0 35.6 - 45.5 % MARCELINO Comment:Testing performed by : [address] [address] Plt 326 150 - 400 K/cumm MARCELINO Comment:Testing performed by : [address] [address] MPV 10.3 9.1 - 12.3 fL MARCELINO Comment:Testing performed by : [address] [address] RBC 4.63 3.90 - 5.20 M/cumm MARCELINO Comment:Testing performed by : [address] [address] MCV 84.2 81.3 - 96.4 fL MARCELINO Comment:Testing performed by : [address] [address] MCH 26.6(L) 27.1 - 33.3 pg MARCELINO HAYWOOD Comment:Testing performed by : [address] [address] MCHC 31.5(L) 32.3 - 35.7 g/dL MARCELINO HAYWOOD Comment:Testing performed by : [address] [address] RDW CV 17.0(H) 11.1 - 14.9 % MARCELINO Comment:Testing performed by : [address] [address] RDW SD 52.2(H) 35.7 - 48.1 fL MARCELINO Comment:Testing performed by : [address] [address] NRBC abs 0.00 0.00 - 0.01 K/cumm MARCELINO Comment:Testing performed by : [address] [address] Blood 11/10/2024 4:20 AM CDT 11/10/2024 4:39 AM CDT Ananya MEANS LAB BLOOD ORDERABLES Final Re sult Performing Organization Address [facility] Co de Phone Number [address] [address] * (ABNORMAL) CRP (acute phase) (11/10/2024 4:20 AM CDT) Pathologist [facility] CRP 45.2(H) <=10.0 mg/L Comment:Testing performed by : [address], [address] Blood 11/10/2024 4:20 AM CDT 11/10/2024 4:39 AM CDT us Conor Ventura MD LAB BLOOD ORDERABL ES Final Result Performing Organization Address City/[facility]/ZIP Co de Phone Number [address] [address] * Phosphorus (11/10/2024 4:20 AM CDT) Phosphorus, pl 3.4 2.3 - 4.5 mg/dL Comment:Testing performed by : [address] [address] Blood 11/10/2024 4:20 AM CDT 11/10/2024 4:39 AM CDT Conor Ventura MD LAB BLOOD ORDERABL ES Final Result Performing Organization Address City/[facility] Co de Phone Number [address] [address] * Magnesium (11/10/2024 4:20 AM CDT) Pathologist [facility] Magnesium 2.2 1.4 - 2.5 mg/dL Comment:Testing performed by : [address] [address] Blood 11/10/2024 4:20 AM CDT 11/10/2024 4:39 AM CDT Conor Ventura MD LAB BLOOD ORDERABL ES Final Result Performing Organization Address [facility] de Phone Number [address] [place] [address] * (ABNORMAL) Comprehensive metabolic panel (11/10/2024 4:20 AM CDT) [facility] Sodium 141 135 - 145 mmol/L Comment:Testing performed by : [address] [address] Potassium, pl 3.2(L) 3.3 - 4.9 mmol/L MARCELINO Comment: Hemolyzed; Potassium value may be falsely elevated by as much as 1.0 mmol/L. Suggest redraw and reanalysis. Testing performed by: [address] [address] Chloride 105 97 - 110 mmol/L MARCELINO Comment:Testing performed by : [address] [address] CO2 25 22 - 32 mmol/L MARCELINO Comment:Testing performed by : [address] [address] Anion gap 11 2 - 15 mmol/L MARCELINO Comment:Testing performed by : [address] [place]., [address] BUN 8 6 - 25 mg/dL [facility] Comment:Testing performed by : [address] [address] Creatinine 0.71 0.60 - 1.10 mg/dL MARCELINO Comment:Testing performed by : [address] [address] Glucose 143 70 - 199 mg/dL [facility] Comment: Interpretive Data Fasting glucose >/= [...] was last revised 2022. Testing performed by: [address] [address] Calcium 9.7 8.5 - 10.3 mg/dL [facility] Comment:Testing performed by : [address] [address] Bilirubin, total 0.2 0.1 - 1.2 mg/dL [facility] Comment:Testing performed by : [address] [address] Protein, pl 6.3(L) 6.5 - 8.5 g/dL [facility] Comment:Testing performed by : [address] [address] Albumin 2.9(L) 3.5 - 5.0 g/dL [facility] Comment:Testing performed by : [address] [address] Alk phos 97 40 - 130 Units/L MARCELINO Comment:Testing performed by : [address] [address] ALT 10 7 - 45 Units/L MARCELINO Comment:Testing performed by : [address] [address] AST 23 10 - 45 Units/L MARCELINO Comment: Hemolyzed; result may be falsely elevated Testing performed by: [address] [address] Blood 11/10/2024 4:20 AM CDT 11/10/2024 4:39 AM CDT Conor Ventura MD LAB BLOOD ORDERABL ES Final Result Performing Organization Address [facility] de Phone Number [address] [address] * POCT glucose (11/10/2024 4:00 AM CDT) Glucose, POC 140 70 - 199 mg/dL Comment:Testing performed by : [address], [address] Glucose comment 1 Use This Result MARCELINO Comment:Testing performed by : [address] [address] Blood 11/10/2024 4:00 AM CDT 11/10/2024 4:00 AM CDT Conor Ventura MD LAB POCT ORDERABLE S - DEVICE Final Result Performing Organization Address [facility] de Phone Number [address] [address] * (ABNORMAL) POCT glucose (11/09/2024 11:57 PM CDT) Glucose, POC 228(H) 70 - 199 mg/dL Comment:Testing performed by : [address] [address] Glucose comment 1 Use This Result MARCELINO Comment:Testing performed by : [address] [address] Blood 11/09/2024 11:5 7 PM CDT 11/09/2024 11:57 PM CDT Conor Ventura MD LAB POCT ORDERABLE S - DEVICE Final Result Performing Organization Address [facility] Co de Phone Number [address] [place] [address] * POCT glucose (11/09/2024 8:40 PM CDT) Glucose, POC 146 70 - 199 mg/dL Comment:Testing performed by : [address] [address] Glucose comment 1 Use This Result MARCELINO Comment:Testing performed by : [address] [address] Blood 11/09/2024 8:40 PM CDT 11/09/2024 8:40 PM CDT Conor Ventura MD LAB POCT ORDERABLE S - DEVICE Final Result Performing Organization Address [facility] de Phone Number [address] [address] * POCT glucose (11/09/2024 4:53 PM CDT) Glucose, POC 133 70 - 199 mg/dL Comment:Testing performed by : [address] [address] Blood 11/09/2024 4:53 PM CDT 11/09/2024 4:53 PM CDT Conor Ventura MD LAB POCT ORDERABLE S - DEVICE Final Result Performing Organization Address City/[facility] Co de Phone Number [address] [address] * POCT glucose (11/09/2024 12:08 PM CDT) Glucose, POC 187 70 - 199 mg/dL Comment:Testing performed by : [address] [address] Blood 11/09/2024 12:0 8 PM CDT 11/09/2024 12:08 PM CDT Conor Ventura MD LAB POCT ORDERABLE S - DEVICE Final Result Performing Organization Address City/[facility]/ZIP Co de Phone Number [address] [place] [address] * POCT glucose (11/09/2024 8:52 AM CDT) Glucose, POC 152 70 - 199 mg/dL Comment:Testing performed by : [address] [address] Blood 11/09/2024 8:52 AM CDT 11/09/2024 8:52 AM CDT Conor Ventura MD LAB POCT ORDERABLE S - DEVICE Final Result Performing Organization Address City/[facility] Co de Phone Number [address] [address] * eGFR (11/09/2024 5:08 AM CDT) eGFR [...] was last reviewed 2021. Testing performed by: [address] [address] Blood 11/09/2024 5:08 AM CDT 11/09/2024 5:33 AM CDT Conor Ventura MD LAB BLOOD ORDERABL ES Final Result [facility] [address] [facility] Department [place] [address] * Differential, auto (11/09/2024 5:08 AM CDT) Neutrophil abs 4.5 1.5 - 6.5 K/cumm Comment:Testing performed by : [address] [address] Imm gran abs 0.0 0.0 - 0.1 K/cumm MARCELINO Comment:Testing performed by : [address] [address] Lymphocyte abs 1.1 0.8 - 3.3 K/cumm MARCELINO Comment:Testing performed by : [address] [address] Monocyte abs 0.5 0.2 - 0.8 K/cumm [facility] Comment:Testing performed by : [address] [address] Eosinophil abs 0.2 0.0 - 0.5 K/cumm [facility] Comment:Testing performed by : [address] [address] Basophil abs 0.0 0.0 - 0.1 K/cumm [facility] Comment:Testing performed by : [address] [address] Neutrophil pct 71.4 % MARCELINO Comment: Interpretive Data Percent cell count reference ranges are not reported, since discordance with absolute values may lead to misinterpretation of CBC data. Current Interpretive Data was last revised on 2017. Testing performed by: [address] [address] Imm gran pct 0.6 % [facility] Comment: Interpretive Data Percent cell count reference ranges are not reported, since discordance with absolute values may lead to misinterpretation of CBC data. Current Interpretive Data was last revised on 2017. Testing performed by: [address] [address] Lymphocyte pct 16.5 % [facility] Comment: Interpretive Data Percent cell count reference ranges are not reported, since discordance with absolute values may lead to misinterpretation of CBC data. Current Interpretive Data was last revised on 2017. Testing performed by: [address] [address] Monocyte pct 8.5 % [facility] Comment: Interpretive Data Percent cell count reference ranges are not reported, since discordance with absolute values may lead to misinterpretation of CBC data. Current Interpretive Data was last revised on 2017. Testing performed by: [address] [address] Eosinophil pct 2.7 % [facility] Comment: Interpretive Data Percent cell count reference ranges are not reported, since discordance with absolute values may lead to misinterpretation of CBC data. Current Interpretive Data was last revised on 2017. Testing performed by: [address] [address] Basophil pct 0.3 % [facility] Comment: Interpretive Data Percent cell count reference ranges are not reported, since discordance with absolute values may lead to misinterpretation of CBC data. Current Interpretive Data was last revised on 2017. Testing performed by: [address] [address] Blood 11/09/2024 5:08 AM CDT 11/09/2024 5:33 AM CDT us Ananya MEANS LAB BLOOD ORDERABLES Final Re sult MARECLINO [address] [facility] Department [place] [address] * (ABNORMAL) CBC with auto differential (11/09/2024 5:08 AM CDT) [facility] WBC 6.4 3.8 - 9.9 K/cumm Comment:Testing performed by : [address], [address] Hgb 11.9 11.9 - 15.5 g/dL MARCELINO Comment:Testing performed by : [address], [address] Hct 38.4 35.6 - 45.5 % MARCELINO Comment:Testing performed by : [address], [address] Plt 342 150 - 400 K/cumm MARCELINO Comment:Testing performed by : [address], [address] MPV 10.5 9.1 - 12.3 fL MARCELINO Comment:Testing performed by : [address], [address] RBC 4.52 3.90 - 5.20 M/cumm MARCELINO Comment:Testing performed by : [address], [address] MCV 85.0 81.3 - 96.4 fL MARCELINO Comment:Testing performed by : [address] [address] MCH 26.3(L) 27.1 - 33.3 pg MARCELINO Comment:Testing performed by : [address], [address] MCHC 31.0(L) 32.3 - 35.7 g/dL MARCELINO Comment:Testing performed by : [address], [address] RDW CV 17.1(H) 11.1 - 14.9 % MARCELINO Comment:Testing performed by : [address], [address] RDW SD 53.1(H) 35.7 - 48.1 fL MARCELINO Comment:Testing performed by : [address], [address] NRBC abs 0.00 0.00 - 0.01 K/cumm [facility] Comment:Testing performed by : [address] [address] Blood 11/09/2024 5:08 AM CDT 11/09/2024 5:33 AM CDT Ananya MEANS LAB BLOOD ORDERABLES Final Re sult Performing Organization Address City/[facility]/ZIP Co de Phone Number [address] [place] [address] * (ABNORMAL) CRP (acute phase) (11/09/2024 5:08 AM CDT) CRP 102.6(H) <=10.0 mg/L Comment:Testing performed by : [address] [address] Blood 11/09/2024 5:08 AM CDT 11/09/2024 5:33 AM CDT Conor Ventura MD LAB BLOOD ORDERABL ES Final Result Performing Organization Address [facility] Co de Phone Number [address] [address] * (ABNORMAL) Phosphorus (11/09/2024 5:08 AM CDT) Phosphorus, pl 2.1(L) 2.3 - 4.5 mg/dL Comment:Testing performed by : [address] [address] Blood 11/09/2024 5:08 AM CDT 11/09/2024 5:33 AM CDT Conor Ventura MD LAB BLOOD ORDERABL ES Final Result Performing Organization Address [facility] Co de Phone Number [address] [place] [address] * (ABNORMAL) Magnesium (11/09/2024 5:08 AM CDT) Magnesium 1.2(L) 1.4 - 2.5 mg/dL Comment:Testing performed by : [address] [address] Blood 11/09/2024 5:08 AM CDT 11/09/2024 5:33 AM CDT Conor Ventura MD LAB BLOOD ORDERABL ES Final Result [facility] [address] [facility] Department [place] [address] * (ABNORMAL) Comprehensive metabolic panel (11/09/2024 5:08 AM CDT) Pathologist [facility] Sodium 140 135 - 145 mmol/L Comment:Testing performed by : [address] [address] Potassium, pl 3.0(L) 3.3 - 4.9 mmol/L MARCELINO Comment:Testing performed by : [address] [address] Chloride 103 97 - 110 mmol/L MARCELINO Comment:Testing performed by : [address] [address] CO2 27 22 - 32 mmol/L MARCELINO Comment:Testing performed by : [address] [address] Anion gap 10 2 - 15 mmol/L MARCELINO Comment:Testing performed by : [address] [address] BUN 7 6 - 25 mg/dL MARCELINO Comment:Testing performed by : [address] [address] Creatinine 0.60 0.60 - 1.10 mg/dL MARCELINO Comment:Testing performed by : [address] [address] Glucose 197 70 - 199 mg/dL MARCELINO [...] was last revised 2022. Testing performed by: [address] [address] Calcium 9.9 8.5 - 10.3 mg/dL MARCELINO Comment:Testing performed by : [address] [address] Bilirubin, total 0.2 0.1 - 1.2 mg/dL [facility] Comment:Testing performed by : [address] [address] Protein, pl 6.0(L) 6.5 - 8.5 g/dL [facility] Comment:Testing performed by : [address] [address] Albumin 2.7(L) 3.5 - 5.0 g/dL [facility] Comment:Testing performed by : [address] [address] Alk phos 91 40 - 130 Units/L [facility] Comment:Testing performed by : [address] [address] ALT 7 7 - 45 Units/L [facility] Comment:Testing performed by : [address] [address] AST 14 10 - 45 Units/L [facility] Comment:Testing performed by : [address] [address] Blood 11/09/2024 5:08 AM CDT 11/09/2024 5:33 AM CDT us Conor Ventura MD LAB BLOOD ORDERABL ES Final Result MARCELINO [address] [address] * POCT glucose (11/09/2024 5:01 AM CDT) Glucose, POC 191 70 - 199 mg/dL Comment:Testing performed by : [address] [address] Glucose comment 1 Use This Result MARCELINO Comment:Testing performed by : [address] [address] Blood 11/09/2024 5:01 AM CDT 11/09/2024 5:01 AM CDT Conor Ventura MD LAB POCT ORDERABLE S - DEVICE Final Result Performing Organization Address [facility] de Phone Number [address] [address] * POCT glucose (11/09/2024 12:07 AM CDT) Glucose, POC 197 70 - 199 mg/dL Comment:Testing performed by : [address] [address] Glucose comment 1 Use This Result MARCELINO Comment:Testing performed by : [address] [address] Blood 11/09/2024 12:0 7 AM CDT 11/09/2024 12:07 AM CDT Conor Ventura MD LAB POCT ORDERABLE S - DEVICE Final Result Performing Organization Address [facility] Co de Phone Number [address] [address] * POCT glucose (11/08/2024 8:15 PM CDT) Glucose, POC 181 70 - 199 mg/dL Comment:Testing performed by : [address] [address] Glucose comment 1 Use This Result MARCELINO Comment:Testing performed by : [facility], [address] [place] [address]., [address] Blood 11/08/2024 8:15 PM CDT 11/08/2024 8:15 PM CDT Conor Ventura MD LAB POCT ORDERABLE S - DEVICE Final Result [address] [place] [address] * POCT glucose (11/08/2024 3:43 PM CDT) Glucose, POC 157 70 - 199 mg/dL Comment:Testing performed by : [address] [address] Blood 11/08/2024 3:43 PM CDT 11/08/2024 3:43 PM CDT Conor Ventura MD LAB POCT ORDERABLE S - DEVICE Final Result Performing Organization Address [facility] Co de Phone Number [address] [address] * POCT glucose (11/08/2024 11:42 AM CDT) Glucose, POC 167 70 - 199 mg/dL Comment:Testing performed by : [facility], [address] [place] [address]., [address] Blood 11/08/2024 11:4 2 AM CDT 11/08/2024 11:42 AM CDT us Conor Ventura MD LAB POCT ORDERABLE S - DEVICE Final Result Performing Organization Address City/[facility] Co de Phone Number [address] [place] [address] * POCT glucose (11/08/2024 7:59 AM CDT) Glucose, POC 173 70 - 199 mg/dL Comment:Testing performed by : [address] [address] Glucose comment 1 Use This Result MARCELINO Comment:Testing performed by : [address] [address] Blood 11/08/2024 7:59 AM CDT 11/08/2024 7:59 AM CDT Conor Ventura MD LAB POCT ORDERABLE S - DEVICE Final Result Performing Organization Address City/[facility]/ZIP Co de Phone Number [address] [place] [address] * (ABNORMAL) POCT glucose (11/08/2024 7:58 AM CDT) Glucose, POC 204(H) 70 - 199 mg/dL Comment:Testing performed by : [address] [address] Glucose comment 1 Use This Result MARCELINO Comment:Testing performed by : [address] [address] Blood 11/08/2024 7:58 AM CDT 11/08/2024 7:58 AM CDT Conor Ventura MD LAB POCT ORDERABLE S - DEVICE Final Result Performing Organization Address City/[facility]/ZIP Co de Phone Number [address] [place] [address] * (ABNORMAL) POCT glucose (11/08/2024 5:46 AM CDT) Glucose, POC 210(H) 70 - 199 mg/dL Comment:Testing performed by : [address] [address] Glucose comment 1 Use This Result MARCELINO Comment:Testing performed by : [facility], [address] [place] [address]., [address] Blood 11/08/2024 5:46 AM CDT 11/08/2024 5:46 AM CDT Conor Ventura MD LAB POCT ORDERABLE S - DEVICE Final Result Performing Organization Address [facility] Co de Phone Number MARCELINO [address] [place] [address] * eGFR (11/08/2024 1:05 AM CDT) eGFR [...] reviewed 2021. Testing performed by: [facility], [address] [place] [address]., [id number] Blood 11/08/2024 1:05 AM CDT 11/08/2024 1:24 AM CDT Conor Ventura MD LAB BLOOD ORDERABL ES Final Result Performing Organization Address City/[facility]/ZIP Co de Phone Number MARCELINO [address] [place] [address] * Blood culture Blood (11/08/2024 1:05 AM CDT) Report Final Report: No growth Comment:Testing performed by : [facility], [address] [place]., [address] Blood 11/08/2024 1:05 AM CDT 11/08/2024 3:32 AM CDT Narrative MARCELINO HAYWOOD - 11/12/2024 7:00 AM CDT From a [...] performance characteristics have been verified by the [facility] Microbiology Laboratory. For questions about this culture, contact the Microbiology Laboratory at [phone]. Interpretive data was last revised on 24. Conor Ventura MD LAB MICROBIOLOGY - GENERAL ORDERABLES Final Result MARCELINO HAYWOOD [address] [facility] Department [place] [address] * (ABNORMAL) CRP (acute phase) (11/08/2024 1:05 AM CDT) CRP 101.0(H) <=10.0 mg/L Comment:Testing performed by : [facility], [address] [place] [address]., [address] Blood 11/08/2024 1:05 AM CDT 11/08/2024 1:24 AM CDT Conor Ventura MD LAB BLOOD ORDERABL ES Final Result [address] [place] [address] * Phosphorus (11/08/2024 1:05 AM CDT) Phosphorus, pl 3.5 2.3 - 4.5 mg/dL Comment:Testing performed by : [address] [address] Blood 11/08/2024 1:05 AM CDT 11/08/2024 1:24 AM CDT Conor Ventura MD LAB BLOOD ORDERABL ES Final Result Performing Organization Address [facility] Co de Phone Number [address] [place] [address] * Magnesium (11/08/2024 1:05 AM CDT) Magnesium 1.4 1.4 - 2.5 mg/dL Comment:Testing performed by : [address] [address] Blood 11/08/2024 1:05 AM CDT 11/08/2024 1:24 AM CDT Conor Ventura MD LAB BLOOD ORDERABL ES Final Result [address] [address] * (ABNORMAL) Comprehensive metabolic panel (11/08/2024 1:05 AM CDT) Sodium 143 135 - 145 mmol/L Comment:Testing performed by : [address] [address] Potassium, pl 3.1(L) 3.3 - 4.9 mmol/L MARCELINO Comment:Testing performed by : [address] [address] Chloride 107 97 - 110 mmol/L MARCELINO Comment:Testing performed by : [address], [place]., [address] CO2 26 22 - 32 mmol/L [facility] Comment:Testing performed by : [address], [place]., [address] Anion gap 10 2 - 15 mmol/L [facility] Comment:Testing performed by : [address] [address] BUN 8 6 - 25 mg/dL MARCELINO Comment:Testing performed by : [address], [place]., [address] Creatinine 0.56(L) 0.60 - 1.10 mg/dL MARCELINO Comment:Testing performed by : [address], [place]., [address] Glucose 209(H) 70 - 199 mg/dL [facility] Comment: Interpretive Data Fasting glucose [...] was last revised 2022. Testing performed by: [address] [address] Calcium 9.5 8.5 - 10.3 mg/dL MARCELINO Comment:Testing performed by : [address] [address] Bilirubin, total 0.2 0.1 - 1.2 mg/dL MARCELINO Comment:Testing performed by : [address] [address] Protein, pl 6.0(L) 6.5 - 8.5 g/dL MARCELINO Comment:Testing performed by : [address] [address] Albumin 2.9(L) 3.5 - 5.0 g/dL MARCELINO HAYWOOD Comment:Testing performed by : [address] [address] Alk phos 90 40 - 130 Units/L MARCELINO Comment:Testing performed by : [address] [address] ALT 11 7 - 45 Units/L MARCELINO Comment:Testing performed by : [address] [address] AST 13 10 - 45 Units/L MARCELINO Comment:Testing performed by : [address] [address] Blood 11/08/2024 1:05 AM CDT 11/08/2024 1:24 AM CDT Conor Ventura MD LAB BLOOD ORDERABL ES Final Result Performing Organization Address City/[facility] Co de Phone Number [address] Department of [place], [place] [id number] * POCT glucose (11/08/2024 12:31 AM CDT) [facility] Signature Glucose, POC 195 70 - 199 mg/dL Comment:Testing performed by : [address] [address] Glucose comment 1 Use This Result MARCELINO Comment:Testing performed by : [address] [address] Blood 11/08/2024 12:3 1 AM CDT 11/08/2024 12:31 AM CDT Conor Ventura MD LAB POCT ORDERABLE S - DEVICE Final Result Performing Organization Address City/[facility] Co de Phone Number [place] [phone] [place] [address] * POCT glucose (11/07/2024 9:10 PM CDT) [facility] Glucose, POC 140 70 - 199 mg/dL Comment:Testing performed by : [facility], [address] [place] [address]., [address] Glucose comment 1 Use This Result MARCELINO Comment:Testing performed by : [address] [address] Blood 11/07/2024 9:10 PM CDT 11/07/2024 9:10 PM CDT Conor Ventura MD LAB POCT ORDERABLE S - DEVICE Final Result Performing Organization Address City/[facility]/ZIP Co de Phone Number [address] [address] * POCT glucose (11/07/2024 4:39 PM CDT) [facility] Glucose, POC 183 70 - 199 mg/dL Comment:Testing performed by : [address] [address] Blood 11/07/2024 4:39 PM CDT 11/07/2024 4:39 PM CDT Conor Ventura MD LAB POCT ORDERABLE S - DEVICE Final Result [address] [address] * eGFR (11/07/2024 1:49 PM CDT) [facility] eGFR >90 >=60 mL/min/1. 73 m2 Comment: [...] was last reviewed 2021. Testing performed by: [address] [address] Blood 11/07/2024 1:49 PM CDT 11/07/2024 2:07 PM CDT Satinder Dougherty MD LAB BLOOD ORDERABLES Fi nal Result Performing Organization Address [facility] Co de Phone Number MARCELINO [facility] Department [place] [address] * (ABNORMAL) Differential, auto (11/07/2024 1:49 PM CDT) Neutrophil abs 9.8(H) 1.5 - 6.5 K/cumm Comment:Testing performed by : [address] [address] Imm gran abs 0.1 0.0 - 0.1 K/cumm MARCELINO Comment:Testing performed by : [address] [address] Lymphocyte abs 0.8 0.8 - 3.3 K/cumm MARCELINO Comment:Testing performed by : [address] [address] Monocyte abs 0.8 0.2 - 0.8 K/cumm MARCELINO HAYWOOD Comment:Testing performed by : [address] [address] Eosinophil abs 0.1 0.0 - 0.5 K/cumm MARCELINO Comment:Testing performed by : [address] [address] Basophil abs 0.1 0.0 - 0.1 K/cumm MARCELINO Comment:Testing performed by : [address] [address] Neutrophil pct 84.7 % [facility] Comment: Interpretive Data Percent cell count reference ranges are not reported, since discordance with absolute values may lead to misinterpretation of CBC data. Current Interpretive Data was last revised on 2017. Testing performed by: [address] [address] Imm gran pct 0.5 % [facility] Comment: Interpretive Data Percent cell count reference ranges are not reported, since discordance with absolute values may lead to misinterpretation of CBC data. Current Interpretive Data was last revised on 2017. Testing performed by: [address] [address] Lymphocyte pct 6.5 % [facility] Comment: Interpretive Data Percent cell count reference ranges are not reported, since discordance with absolute values may lead to misinterpretation of CBC data. Current Interpretive Data was last revised on 2017. Testing performed by: [address] [address] Monocyte pct 7.2 % [facility] Comment: Interpretive Data Percent cell count reference ranges are not reported, since discordance with absolute values may lead to misinterpretation of CBC data. Current Interpretive Data was last revised on 2017. Testing performed by: [address] [address] Eosinophil pct 0.7 % [facility] Comment: Interpretive Data Percent cell count reference ranges are not reported, since discordance with absolute values may lead to misinterpretation of CBC data. Current Interpretive Data was last revised on 2017. Testing performed by: [address] [address] Basophil pct 0.4 % [facility] Comment: Interpretive Data Percent cell count reference ranges are not reported, since discordance with absolute values may lead to misinterpretation of CBC data. Current Interpretive Data was last revised on 2017. Testing performed by: [address] [address] Blood 11/07/2024 1:49 PM CDT 11/07/2024 2:07 PM CDT Ananya MEANS LAB BLOOD ORDERABLES Final Re sult Performing Organization Address [facility] Co de Phone Number [address] [address] * Thyroid Function [place] (11/07/2024 1:49 PM CDT) TSH 3.28 0.30 - 4.20 mcIUnit/mL Comment:Testing performed by : [address] [address] Blood 11/07/2024 1:4 9 PM CDT 11/07/2024 2:07 PM CDT Conor Ventura MD LAB BLOOD ORDERABL ES Final Result Performing Organization Address [facility] Co de Phone Number [address] [address] * (ABNORMAL) CBC with auto differential (11/07/2024 1:49 PM CDT) Pathologist [facility] WBC 11.6(H) 3.8 - 9.9 K/cumm Comment:Testing performed by : [address] [address] Hgb 12.6 11.9 - 15.5 g/dL MARCELINO HAYWOOD Comment:Testing performed by : [address] [address] Hct 39.9 35.6 - 45.5 % MARCELINO HAYWOOD Comment:Testing performed by : [address] [address] Plt 407(H) 150 - 400 K/cumm MARCELINO HAYWOOD Comment:Testing performed by : [address] [address] MPV 10.5 9.1 - 12.3 fL MARCELINO HAYWOOD Comment:Testing performed by : [address] [address] RBC 4.73 3.90 - 5.20 M/cumm MARCELINO Comment:Testing performed by : [address] [address] MCV 84.4 81.3 - 96.4 fL MARCELINO Comment:Testing performed by : [address] [address] MCH 26.6(L) 27.1 - 33.3 pg MARCELINO Comment:Testing performed by : [address] [address] MCHC 31.6(L) 32.3 - 35.7 g/dL MARCELINO Comment:Testing performed by : [address] [address] RDW CV 17.2(H) 11.1 - 14.9 % MARCELINO Comment:Testing performed by : [address] [address] RDW SD 53.5(H) 35.7 - 48.1 fL MARCELINO Comment:Testing performed by : [address] [address] NRBC abs 0.00 0.00 - 0.01 K/cumm MARCELINO Comment:Testing performed by : [address] [address] Blood 11/07/2024 1:49 PM CDT 11/07/2024 2:07 PM CDT us Ananya MEANS LAB BLOOD ORDERABLES Final Re sult MARCELINO [address] [facility] Department [place] [address] * (ABNORMAL) Erythrocyte sedimentation rate (11/07/2024 1:49 PM CDT) Erythrocyte sedimentation rate 85(H) 1 - 30 mm/hr Comment:Testing performed by : [address], [address] Blood 11/07/2024 1:49 PM CDT 11/07/2024 2:07 PM CDT Conor Ventura MD LAB BLOOD ORDERABL ES Final Result Performing Organization Address [facility] Co de Phone Number [address] [place] [address] * (ABNORMAL) CRP (acute phase) (11/07/2024 1:49 PM CDT) CRP 108.0(H) <=10.0 mg/L Comment:Testing performed by : [address] [address] Blood 11/07/2024 1:49 PM CDT 11/07/2024 2:07 PM CDT Conor Ventura MD LAB BLOOD ORDERABL ES Final Result Performing Organization Address [facility] Co de Phone Number [address] [place] [address] * Ammonia (11/07/2024 1:49 PM CDT) Ammonia 13 <=50 mcmol/L Comment: Please note on 01/05/2024 the unit of measure changed from mcg/dL to mcmol/L. Current Interpretive Data was last revised on 2024 Testing performed by: [address] [address] Blood 11/07/2024 1:49 PM CDT 11/07/2024 2:05 PM CDT Conor Ventura MD LAB BLOOD ORDERABL ES Final Result Performing Organization Address City/[facility] Co de Phone Number [address] [place] [address] * (ABNORMAL) Basic metabolic panel (11/07/2024 1:49 PM CDT) Sodium 144 135 - 145 mmol/L Comment:Testing performed by : [address] [address] Potassium, pl 2.9(L) 3.3 - 4.9 mmol/L MARCELINO Comment:Testing performed by : [address], [place]., [address] Chloride 109 97 - 110 mmol/L [facility] Comment:Testing performed by : [address], [place]., [address] CO2 23 22 - 32 mmol/L [facility] Comment:Testing performed by : [address], [place]., [address] Anion gap 12 2 - 15 mmol/L [facility] Comment:Testing performed by : [address], [place]., [address] BUN 10 6 - 25 mg/dL [facility] Comment:Testing performed by : [address] [address] Creatinine 0.55(L) 0.60 - 1.10 mg/dL [facility] Comment:Testing performed by : [address] [address] Glucose 170 70 - 199 mg/dL [facility] Comment: Interpretive Data Fasting glucose [...] was last revised 2022. Testing performed by: [address] [address] Calcium 10.0 8.5 - 10.3 mg/dL [facility] Comment:Testing performed by : [address] [address] Blood 11/07/2024 1:49 PM CDT 11/07/2024 2:07 PM CDT Satinder Dougherty MD LAB BLOOD ORDERABLES Fi nal Result Performing Organization Address [facility] Co de Phone Number [place] [address] [facility] [place] [address] * POCT glucose (11/07/2024 12:43 PM CDT) [facility] Signature Glucose, POC 170 70 - 199 mg/dL Comment:Testing performed by : [facility], [address] [place] [address]., [address] Blood 11/07/2024 12:4 3 PM CDT 11/07/2024 12:43 PM CDT Conor Ventura MD LAB POCT ORDERABLE S - DEVICE Final Result Performing Organization Address [facility] de Phone Number [place] [phone] [facility] [place] [address] * CT Chest Abdomen Pelvis W Contrast [...] vessels without aneurysm. 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 AM: AM Report ID: [id number] Reading Location: [id number] Procedure Note Shahid Schaeffer MD - 11/07/2024 [...] vessels without aneurysm. 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 AM: AM Report ID: [id number] Reading Location: [place] [address] Conor Ventura MD IMG CT PROCEDURES Final Result * Lactate (11/07/2024 12:23 PM CDT) Lactate 1.1 0.7 - 2.0 mmol/L Comment:Testing performed by : [facility], [address] [place] [address]., [address] Blood 11/07/2024 12:2 3 PM CDT 11/07/2024 12:28 PM CDT Conor Ventura MD LAB BLOOD ORDERABL ES Final Result MARCELINO [address] [facility] Department [place] [address] * eGFR (11/07/2024 12:23 PM CDT) eGFR [...] was last reviewed 2021. Testing performed by: [address] [address] Blood 11/07/2024 12:2 3 PM CDT 11/07/2024 12:28 PM CDT Conor Ventura MD LAB BLOOD ORDERABL ES Final Result [facility] [address] [facility] Department [place] [address] * (ABNORMAL) Differential, auto (11/07/2024 12:23 PM CDT) Pathologist [facility] Neutrophil abs 10.0(H) 1.5 - 6.5 K/cumm Comment:Testing performed by : [address] [address] Imm gran abs 0.1 0.0 - 0.1 K/cumm MARCELINO Comment:Testing performed by : [address] [address] Lymphocyte abs 0.9 0.8 - 3.3 K/cumm MARCELINO Comment:Testing performed by : [address] [place] [address] Monocyte abs 0.9(H) 0.2 - 0.8 K/cumm [facility] Comment:Testing performed by : [address] [address] Eosinophil abs 0.1 0.0 - 0.5 K/cumm [facility] Comment:Testing performed by : [address] [address] Basophil abs 0.1 0.0 - 0.1 K/cumm [facility] Comment:Testing performed by : [address] [address] Neutrophil pct 82.9 % [facility] Comment: Interpretive Data Percent cell count reference ranges are not reported, since discordance with absolute values may lead to misinterpretation of CBC data. Current Interpretive Data was last revised on 2017. Testing performed by: [address] [address] Imm gran pct 0.6 % [facility] Comment: Interpretive Data Percent cell count reference ranges are not reported, since discordance with absolute values may lead to misinterpretation of CBC data. Current Interpretive Data was last revised on 2017. Testing performed by: [address] [address] Lymphocyte pct 7.6 % [facility] Comment: Interpretive Data Percent cell count reference ranges are not reported, since discordance with absolute values may lead to misinterpretation of CBC data. Current Interpretive Data was last revised on 2017. Testing performed by: [address] [address] Monocyte pct 7.8 % [facility] Comment: Interpretive Data Percent cell count reference ranges are not reported, since discordance with absolute values may lead to misinterpretation of CBC data. Current Interpretive Data was last revised on 2017. Testing performed by: [address] [address] Eosinophil pct 0.6 % [facility] Comment: Interpretive Data Percent cell count reference ranges are not reported, since discordance with absolute values may lead to misinterpretation of CBC data. Current Interpretive Data was last revised on 2017. Testing performed by: [address] [address] Basophil pct 0.5 % MARCELINO HAYWOOD Comment: Interpretive Data Percent cell count reference ranges are not reported, since discordance with absolute values may lead to misinterpretation of CBC data. Current Interpretive Data was last revised on 2017. Testing performed by: [address] [address] Blood 11/07/2024 12:2 3 PM CDT 11/07/2024 12:28 PM CDT us Conor Ventura MD LAB BLOOD ORDERABL ES Final Result MARCELINO HAYWOOD [facility] Department [place] [address] * (ABNORMAL) CBC with auto differential (11/07/2024 12:23 PM CDT) WBC 12.1(H) 3.8 - 9.9 K/cumm Comment:Testing performed by : [address] [address] Hgb 12.6 11.9 - 15.5 g/dL MARCELINO HAYWOOD Comment:Testing performed by : [address] [address] Hct 40.7 35.6 - 45.5 % MARCELINO HAYWOOD Comment:Testing performed by : [address] [address] Plt 395 150 - 400 K/cumm MARCELINO HAYWOOD Comment:Testing performed by : [address] [address] MPV 10.1 9.1 - 12.3 fL MARCELINO HAYWOOD Comment:Testing performed by : [address] [address] RBC 4.71 3.90 - 5.20 M/cumm MARCELINO HAYWOOD Comment:Testing performed by : [address] [address] MCV 86.4 81.3 - 96.4 fL MARCELINO HAYWOOD Comment:Testing performed by : [facility], [address] [place] [address]., [address] MCH 26.8(L) 27.1 - 33.3 pg MARCLEINO Comment:Testing performed by : [address] [address] MCHC 31.0(L) 32.3 - 35.7 g/dL MARCELINO Comment:Testing performed by : [address] [address] RDW CV 17.2(H) 11.1 - 14.9 % MARCELINO Comment:Testing performed by : [address] [address] RDW SD 54.4(H) 35.7 - 48.1 fL MARCELINO Comment:Testing performed by : [address] [address] NRBC abs 0.00 0.00 - 0.01 K/cumm MARCELINO Comment:Testing performed by : [address] [address] Blood 11/07/2024 12:2 3 PM CDT 11/07/2024 12:28 PM CDT Conor Ventura MD LAB BLOOD ORDERABL ES Final Result MARCELINO [facility] Department of Laboratories [place], [place] [id number] * Blood culture Blood (11/07/2024 12:23 PM CDT) Report Final Report: No growth Comment:Testing performed by : [facility], [address] [facility], [place]., [address] Blood 11/07/2024 12:2 3 PM CDT 11/07/2024 4:14 PM CDT Narrative MARCELINO - 11/12/2024 7:00 AM CDT Collection->Peripheral 1. [...] performance characteristics have been verified by the [facility] Microbiology Laboratory. For questions about this culture, contact the Microbiology Laboratory at [phone]. Interpretive data was last revised on 24. Conor Ventura MD LAB MICROBIOLOGY - GENERAL ORDERABLES Final Result Performing Organization Address City/[facility]/ZIP Co de Phone Number [place] [address] [facility] [place] [address] * (ABNORMAL) Phosphorus (11/07/2024 12:23 PM CDT) [facility] Phosphorus, pl 2.0(L) 2.3 - 4.5 mg/dL Comment:Testing performed by : [facility], [address] [place] [address]., [address] Blood 11/07/2024 12:2 3 PM CDT 11/07/2024 12:28 PM CDT Conor Ventura MD LAB BLOOD ORDERABL ES Final Result Performing Organization Address City/[facility]/ZIP Co de Phone Number [facility] [address] [facility] [address] * Magnesium (11/07/2024 12:23 PM CDT) [facility] Magnesium 1.4 1.4 - 2.5 mg/dL Comment:Testing performed by : [address] [address] Blood 11/07/2024 12:2 3 PM CDT 11/07/2024 12:28 PM CDT Conor Ventura MD LAB BLOOD ORDERABL ES Final Result [facility] [address] [facility] Department [place] [address] * (ABNORMAL) Comprehensive metabolic panel (11/07/2024 12:23 PM CDT) Pathologist [facility] Sodium 145 135 - 145 mmol/L Comment:Testing performed by : [address] [address] Potassium, pl 3.1(L) 3.3 - 4.9 mmol/L MARCELINO Comment: Hemolyzed; Potassium value may be falsely elevated by as much as 1.0 mmol/L. Suggest redraw and reanalysis. Testing performed by: [address] [address] Chloride 107 97 - 110 mmol/L MARCELINO Comment:Testing performed by : [address] [address] CO2 22 22 - 32 mmol/L MARCELINO Comment:Testing performed by : [address] [address] Anion gap 16(H) 2 - 15 mmol/L MARCELINO Comment:Testing performed by : [address] [address] BUN 10 6 - 25 mg/dL MARCELINO Comment:Testing performed by : [address] [address] Creatinine 0.50(L) 0.60 - 1.10 mg/dL MARCELINO Comment:Testing performed by : [address] [address] Glucose 161 70 - 199 mg/dL MARCELINO [...] was last revised 2022. Testing performed by: [address] [address] Calcium 10.1 8.5 - 10.3 mg/dL MARCELINO Comment:Testing performed by : [address] [address] Bilirubin, total 0.3 0.1 - 1.2 mg/dL [facility] Comment:Testing performed by : [address] [address] Protein, pl 6.5 6.5 - 8.5 g/dL [facility] Comment:Testing performed by : [address] [address] Albumin 3.2(L) 3.5 - 5.0 g/dL [facility] Comment:Testing performed by : [address] [address] Alk phos 100 40 - 130 Units/L [facility] Comment:Testing performed by : [address] [address] ALT 8 7 - 45 Units/L [facility] Comment:Testing performed by : [address] [address] AST 13 10 - 45 Units/L [facility] Comment:Testing performed by : [address] [address] Blood 11/07/2024 12:2 3 PM CDT 11/07/2024 12:28 PM CDT us Conor Ventura MD LAB BLOOD ORDERABL ES Final Result [address] [address] * POCT glucose (11/07/2024 8:12 AM CDT) Glucose, POC 138 70 - 199 mg/dL Comment:Testing performed by : [address] [address] Blood 11/07/2024 8:12 AM CDT 11/07/2024 8:12 AM CDT us Conor Ventura MD LAB POCT ORDERABLE S - DEVICE Final Result Performing Organization Address City/[facility]/ZIP Co de Phone Number [address] [address] * POCT glucose (11/07/2024 4:29 AM CDT) Glucose, POC 156 70 - 199 mg/dL Comment:Testing performed by : [address] [address] Blood 11/07/2024 4:29 AM CDT 11/07/2024 4:29 AM CDT us Satinder Dougherty MD LAB POCT ORDERABLES - D EVICE Final Result Performing Organization Address City/[facility] Co de Phone Number [address] [address] * POCT glucose (11/06/2024 11:19 PM CDT) Glucose, POC 134 70 - 199 mg/dL Comment:Testing performed by : [address] [address] Glucose comment 1 Use This Result MARCELINO Comment:Testing performed by : [address] [address] Blood 11/06/2024 11:1 9 PM CDT 11/06/2024 11:19 PM CDT Satinder Dougherty MD LAB POCT ORDERABLES - D EVICE Final Result Performing Organization Address [facility] Co de Phone Number MARCELINO [address] [place] [address] * POCT glucose (11/06/2024 7:57 PM CDT) Glucose, POC 160 70 - 199 mg/dL Comment:Testing performed by : [address] [address] Glucose comment 1 Use This Result MARCELINO Comment:Testing performed by : [address] [address] Blood 11/06/2024 7:57 PM CDT 11/06/2024 7:57 PM CDT Satinder Dougherty MD LAB POCT ORDERABLES - D EVICE Final Result Performing Organization Address [facility] de Phone Number [address] [address] * POCT glucose (11/06/2024 7:38 PM CDT) Glucose, POC 151 70 - 199 mg/dL Comment:Testing performed by : [address] [address] Glucose comment 1 Use This Result MARCELINO Comment:Testing performed by : [address] [address] Blood 11/06/2024 7:38 PM CDT 11/06/2024 7:38 PM CDT Satinder Dougherty MD LAB POCT ORDERABLES - D EVICE Final Result Performing Organization Address City/[facility] Co de Phone Number [place] [address] [place] [address] * POCT glucose (11/06/2024 5:21 PM CDT) Glucose, POC 161 70 - 199 mg/dL Comment:Testing performed by : [facility], [address] [place] [address]., [address] Blood 11/06/2024 5:21 PM CDT 11/06/2024 5:21 PM CDT Satinder Dougherty MD LAB POCT ORDERABLES - D EVICE Final Result Performing Organization Address City/[facility]/ZIP Co de Phone Number MARCELINO [address] [place] [address] * POCT glucose (11/06/2024 12:41 PM CDT) Pathologist [facility] Glucose, POC 147 70 - 199 mg/dL Comment:Testing performed by : [facility], [address] [place] [address]., [address] Blood 11/06/2024 12:4 1 PM CDT 11/06/2024 12:41 PM CDT Satinder Dougherty MD LAB POCT ORDERABLES - D EVICE Final Result Performing Organization Address City/[facility] Co de Phone Number ORLIN[address] [place] [address] * eGFR (11/06/2024 12:34 PM CDT) eGFR 88 >=60 mL/min/1. 73 m2 Comment: [...] was last reviewed 2021. Testing performed by: [address] [address] Blood 11/06/2024 12:3 4 PM CDT 11/06/2024 12:50 PM CDT Satinder Dougherty MD LAB BLOOD ORDERABLES Fi nal Result Performing Organization Address City/[facility] Co de Phone Number MARCELINO [address] [place] [address] * eGFR (11/06/2024 12:34 PM CDT) eGFR [...] was last reviewed 2021. Testing performed by: [address] [address] Blood 11/06/2024 12:3 4 PM CDT 11/06/2024 12:50 PM CDT us Satinder Dougherty MD LAB BLOOD ORDERABLES Fi nal Result Performing Organization Address City/[facility]/ZIP Co de Phone Number MARCELINO [address] Department [place] [address] * (ABNORMAL) Differential, auto (11/06/2024 12:34 PM CDT) Neutrophil abs 8.3(H) 1.5 - 6.5 K/cumm Comment:Testing performed by : [address] [address] Imm gran abs 0.1 0.0 - 0.1 K/cumm MARCELINO Comment:Testing performed by : [address] [address] Lymphocyte abs 1.1 0.8 - 3.3 K/cumm MARCELINO Comment:Testing performed by : [address] [address] Monocyte abs 0.9(H) 0.2 - 0.8 K/cumm [facility] Comment:Testing performed by : [address] [address] Eosinophil abs 0.1 0.0 - 0.5 K/cumm [facility] Comment:Testing performed by : [address] [address] Basophil abs 0.1 0.0 - 0.1 K/cumm [facility] Comment:Testing performed by : [address] [address] Neutrophil pct 79.3 % [facility] Comment: Interpretive Data Percent cell count reference ranges are not reported, since discordance with absolute values may lead to misinterpretation of CBC data. Current Interpretive Data was last revised on 2017. Testing performed by: [address] [address] Imm gran pct 1.0 % [facility] Comment: Interpretive Data Percent cell count reference ranges are not reported, since discordance with absolute values may lead to misinterpretation of CBC data. Current Interpretive Data was last revised on 2017. Testing performed by: [address] [address] Lymphocyte pct 10.2 % [facility] Comment: Interpretive Data Percent cell count reference ranges are not reported, since discordance with absolute values may lead to misinterpretation of CBC data. Current Interpretive Data was last revised on 2017. Testing performed by: [address] [address] Monocyte pct 8.5 % MARCELINO Comment: Interpretive Data Percent cell count reference ranges are not reported, since discordance with absolute values may lead to misinterpretation of CBC data. Current Interpretive Data was last revised on 2017. Testing performed by: [address] [address] Eosinophil pct 0.5 % MARCELINO Comment: Interpretive Data Percent cell count reference ranges are not reported, since discordance with absolute values may lead to misinterpretation of CBC data. Current Interpretive Data was last revised on 2017. Testing performed by: [address] [address] Basophil pct 0.5 % MARCELINO Comment: Interpretive Data Percent cell count reference ranges are not reported, since discordance with absolute values may lead to misinterpretation of CBC data. Current Interpretive Data was last revised on 2017. Testing performed by: [address] [address] Blood 11/06/2024 12:3 4 PM CDT 11/06/2024 12:50 PM CDT us Ananya MEANS LAB BLOOD ORDERABLES Final Re sult [facility] [address] [facility] Department [place] [address] * (ABNORMAL) CBC with auto differential (11/06/2024 12:34 PM CDT) WBC 10.4(H) 3.8 - 9.9 K/cumm Comment:Testing performed by : [address] [address] Hgb 15.1 11.9 - 15.5 g/dL MARCELINO Comment:Testing performed by : [address] [address] Hct 47.3(H) 35.6 - 45.5 % MARCELINO Comment:Testing performed by : [address] [address] Plt 313 150 - 400 K/cumm MARCELINO Comment:Testing performed by : [address] [address] MPV 10.9 9.1 - 12.3 fL MARCELINO Comment:Testing performed by : [address] [address] RBC 5.64(H) 3.90 - 5.20 M/cumm MARCELINO Comment:Testing performed by : [address] [address] MCV 83.9 81.3 - 96.4 fL MARCELINO Comment:Testing performed by : [address] [address] MCH 26.8(L) 27.1 - 33.3 pg MARCELINO Comment:Testing performed by : [address], [address] MCHC 31.9(L) 32.3 - 35.7 g/dL MARCELINO Comment:Testing performed by : [address], [address] RDW CV 18.0(H) 11.1 - 14.9 % MARCELINO Comment:Testing performed by : [address] [address] RDW SD 51.9(H) 35.7 - 48.1 fL MARCELINO Comment:Testing performed by : [address] [address] NRBC abs 0.00 0.00 - 0.01 K/cumm MARCELINO Comment:Testing performed by : [address], [address] Blood 11/06/2024 12:3 4 PM CDT 11/06/2024 12:50 PM CDT us Ananya MEANS LAB BLOOD ORDERABLES Final Re sult [facility] [place] [address] * Magnesium (11/06/2024 12:34 PM CDT) [facility] Magnesium 1.4 1.4 - 2.5 mg/dL Comment:Testing performed by : [address] [address] Blood 11/06/2024 12:3 4 PM CDT 11/06/2024 12:50 PM CDT Satinder Dougherty MD LAB BLOOD ORDERABLES Fi nal Result [address] [address] * Creatinine (11/06/2024 12:34 PM CDT) [facility] Creatinine 0.60 0.60 - 1.10 mg/dL Comment:Testing performed by : [address] [address] Blood 11/06/2024 12:3 4 PM CDT 11/06/2024 12:50 PM CDT Satinder Dougherty MD LAB BLOOD ORDERABLES Fi nal Result Performing Organization Address City/[facility]/ZIP Co de Phone Number [address] [address] * (ABNORMAL) Basic metabolic panel (11/06/2024 12:34 PM CDT) [facility] Sodium 142 135 - 145 mmol/L Comment:Testing performed by : [address] [address] Potassium, pl 2.9(L) 3.3 - 4.9 mmol/L MARCELINO HAYWOOD Comment: Hemolyzed; Potassium value may be falsely elevated by as much as 1.0 mmol/L. Suggest redraw and reanalysis. Testing performed by: [address] [address] Chloride 101 97 - 110 mmol/L MARCELINO HAYWOOD Comment:Testing performed by : [address] [address] CO2 20(L) 22 - 32 mmol/L MARCELINO Comment:Testing performed by : [address] [address] Anion gap 21(H) 2 - 15 mmol/L MARCELINO Comment:Testing performed by : [address] [address] BUN 9 6 - 25 mg/dL MARCELINO Comment:Testing performed by : [address] [address] Creatinine 0.64 0.60 - 1.10 mg/dL MARCELINO Comment:Testing performed by : [address] [address] Glucose 164 70 - 199 mg/dL MARCELINO [...] was last revised 2022. Testing performed by: [address] [address] Calcium 10.2 8.5 - 10.3 mg/dL MARCELINO Comment:Testing performed by : [address] [address] Blood 11/06/2024 12:3 4 PM CDT 11/06/2024 12:50 PM CDT us Satinder Dougherty MD LAB BLOOD ORDERABLES Fi nal Result MARCELINO [address] [facility] Department [place] [address] * (ABNORMAL) POC Blood Gas and Chemistries, Arterial - (11/06/2024 9:08 AM CDT) pH, art POC 7.54(H) 7.35 - 7.45 Comment:Testing performed by : [address] [address] pCO2, art POC 28(L) 35 - 45 mmHg MARCELINO Comment:Testing performed by : [address] [address] pO2, art POC 95 83 - 108 mmHg MARCELINO Comment:Testing performed by : [address] [address] HCO3, art (Calc) POC 24 20 - 30 mmol/L MARCELINO Comment:Testing performed by : [address] [address] Base excess, art POC 2 mmol/L MARCELINO Comment: Interpretive Data No reference range established. Current interpretive data was last revised 2020. Testing performed by: [address] [address] Blood 11/06/2024 9:08 AM CDT 11/06/2024 9:08 AM CDT us Satinder Dougherty MD LAB POCT ORDERABLES - D EVICE Final Result MARCELINO [address] [facility] Department of Laboratories [place], [place] [id number] * XR Chest 1 View (11/06/2024 9:08 [...] Layla Ballard D.O. PS: PS Report ID: [id number] Reading Location: [id number] Procedure Note Layla Ballard, DO - 11/06/2024 [...] Layla Ballard D.O. PS: PS Report ID: [id number] Reading Location: [id number] Satinder Dougherty MD IMG XR PROCEDURES Final Result * POCT glucose (11/06/2024 8:29 AM CDT) [facility] Signature Glucose, POC 132 70 - 199 mg/dL Comment:Testing performed by : [facility], [address] [place] [address], [place]., [address] Blood 11/06/2024 8:29 AM CDT 11/06/2024 8:29 AM CDT Satinder Dougherty MD LAB POCT ORDERABLES - D EVICE Final Result MARCELINO [facility] [place] [address] * POCT glucose (11/06/2024 4:46 AM CDT) Glucose, POC 155 70 - 199 mg/dL Comment:Testing performed by : [address] [address] Glucose comment 1 Use This Result MARCELINO Comment:Testing performed by : [address] [address] Blood 11/06/2024 4:46 AM CDT 11/06/2024 4:46 AM CDT Satinder Dougherty MD LAB POCT ORDERABLES - D EVICE Final Result Performing Organization Address [facility] Co de Phone Number [address] [address] * POCT glucose (11/06/2024 12:07 AM CDT) Glucose, POC 140 70 - 199 mg/dL Comment:Testing performed by : [address] [address] Glucose comment 1 Use This Result MARCELINO Comment:Testing performed by : [address] [address] Blood 11/06/2024 12:0 7 AM CDT 11/06/2024 12:07 AM CDT Satinder Dougherty MD LAB POCT ORDERABLES - D EVICE Final Result MARCELINO [facility] [place] [address] * POCT glucose (11/05/2024 9:33 PM CDT) Glucose, POC 127 70 - 199 mg/dL Comment:Testing performed by : [address] [address] Glucose comment 1 Use This Result MARCELINO HAWYOOD Comment:Testing performed by : [address] [address] Blood 11/05/2024 9:33 PM CDT 11/05/2024 9:33 PM CDT Satinder Dougherty MD LAB POCT ORDERABLES - D EVICE Final Result Performing Organization Address [facility] Co de Phone Number MARCELINO [address] [place] [address] * POCT glucose (11/05/2024 4:12 PM CDT) Glucose, POC 140 70 - 199 mg/dL Comment:Testing performed by : [address] [address] Blood 11/05/2024 4:12 PM CDT 11/05/2024 4:12 PM CDT Satinder Dougherty MD LAB POCT ORDERABLES - D EVICE Final Result Performing Organization Address City/[facility] Co de Phone Number ORLIN[address] [address] * MRI Brain WO Contrast (11/05/2024 1:10 [...] Wilfredo Jonas D.O. AP: KEVIN Report ID: [id number] Reading Location: [id number] Procedure Note Wilfredo Jonas, DO - 11/05/2024 EXAM DESCRIPTION: MRI BRAIN WO CONTRAST REASON FOR STUDY: Mental status change, unknown cause Mental status change, unknown cause. Best obtained imaging due to patient movement and breathing TECHNIQUE: Multiplanar imaging includes non-contrasted T1, T2, FLAIR, and diffusion with ADC map sequences. Additional sequence(s) sensitive [employer] products. Images stored on PACS. COMPARISON: MRI [...] mandible.There are bilateral mandibular postoperative changes. Rounded [id number] along the expected location of the mandibular [...] Wilfredo Jonas D.O. AP: AP Report ID: [id number] Reading Location: [place] [address] Arsh Ruby MD IMG MRI PROCEDURES Fi [...] and facet arthropathy with severe left and iawn-bp-wbnfprkq right neural foraminal narrowing. C4-C5: Retrolisthesis of [...] severe and additional findings as above. 3. Kqjn-herishg-upgi-right posterior paraspinal soft tissue STIR hyperintense signal on both sides is nonspecific and could reflect a strain or myositis. Request clinical correlation. 4. Recent cervical spine imaging is not available for comparison. An addendum can be made once priors are provided. THIS IS AN ELECTRONICALLY VERIFIED FINAL REPORT 11/05/2024 2:14 PM - Electronically signed by Wilfredo Jonas D.O. AP: AP Report ID: [id number] Reading Location: [place] [address] Procedure Note Wilfredo Jonas, DO - 11/05/2024 [...] spurringand facet arthropathy with severe left and eehc-vh-wfflukib right neuralforaminal narrowing. C4-C5: Retrolisthesis of C4 [...] severe and additional findings as above. 3. Nzxq-omepbaf-nlve-right posterior paraspinal soft tissue STIR hyperintense signal on both sides is nonspecific and could reflect astrain or myositis. Request clinical correlation. 4. Recent cervical spine imaging is not available for comparison. An addendum can be made once priors are provided. THIS IS AN ELECTRONICALLY VERIFIED FINAL REPORT 11/05/2024 2:14 PM - Electronically signed by Wilfredo Jonas D.O. AP: KEVIN Report ID: [id number] Reading Location: [place] [address] Arsh Ruby MD IMG MRI PROCEDURES Fi nal Result * POCT glucose (11/05/2024 8:11 AM CDT) [facility] Signature Glucose, POC 146 70 - 199 mg/dL Comment:Testing performed by : [address] [address] Glucose comment 1 Use This Result MARCELINO Comment:Testing performed by : [address] [address] Blood 11/05/2024 8:11 AM CDT 11/05/2024 8:11 AM CDT Satinder Dougherty MD LAB POCT ORDERABLES - D EVICE Final Result Performing Organization Address [facility] Co de Phone Number ORLIN[address] [place] [address] * POCT glucose (11/05/2024 5:56 AM CDT) [facility] Glucose, POC 147 70 - 199 mg/dL Comment:Testing performed by : [address] [address] Glucose comment 1 Use This Result MARCELINO Comment:Testing performed by : [address] [address] Blood 11/05/2024 5:56 AM CDT 11/05/2024 5:56 AM CDT Satinder Dougherty MD LAB POCT ORDERABLES - D EVICE Final Result Performing Organization Address [facility]/ZIP Co de Phone Number [address] [place] [address] * (ABNORMAL) Differential, auto (11/05/2024 4:52 AM CDT) [facility] Neutrophil abs 7.5(H) 1.5 - 6.5 K/cumm Comment:Testing performed by : [address] [address] Imm gran abs 0.1 0.0 - 0.1 K/cumm [facility] Comment:Testing performed by : [address] [address] Lymphocyte abs 0.9 0.8 - 3.3 K/cumm [facility] Comment:Testing performed by : [address], [place]., [address] Monocyte abs 1.0(H) 0.2 - 0.8 K/cumm [facility] Comment:Testing performed by : [address], [place]., [address] Eosinophil abs 0.2 0.0 - 0.5 K/cumm [facility] Comment:Testing performed by : [address] [address] Basophil abs 0.0 0.0 - 0.1 K/cumm [facility] Comment:Testing performed by : [address] [address] Neutrophil pct 77.6 % [facility] Comment: Interpretive Data Percent cell count reference ranges are not reported, since discordance with absolute values may lead to misinterpretation of CBC data. Current Interpretive Data was last revised on 2017. Testing performed by: [address] [address] Imm gran pct 0.6 % [facility] Comment: Interpretive Data Percent cell count reference ranges are not reported, since discordance with absolute values may lead to misinterpretation of CBC data. Current Interpretive Data was last revised on 2017. Testing performed by: [address] [address] Lymphocyte pct 9.6 % CERNER Comment: Interpretive Data Percent cell count reference ranges are not reported, since discordance with absolute values may lead to misinterpretation of CBC data. Current Interpretive Data was last revised on 2017. Testing performed by: [address] [address] Monocyte pct 10.3 % CERNER Comment: Interpretive Data Percent cell count reference ranges are not reported, since discordance with absolute values may lead to misinterpretation of CBC data. Current Interpretive Data was last revised on 2017. Testing performed by: [address] [address] Eosinophil pct 1.6 % MARCELINO HAYWOOD Comment: Interpretive Data Percent cell count reference ranges are not reported, since discordance with absolute values may lead to misinterpretation of CBC data. Current Interpretive Data was last revised on 2017. Testing performed by: [address] [address] Basophil pct 0.3 % MARCELINO Comment: Interpretive Data Percent cell count reference ranges are not reported, since discordance with absolute values may lead to misinterpretation of CBC data. Current Interpretive Data was last revised on 2017. Testing performed by: [address] [address] Blood 11/05/2024 4:52 AM CDT 11/05/2024 5:31 AM CDT us Ananya MEANS LAB BLOOD ORDERABLES Final Re sult MARCELINO [facility] Department [place] [address] * (ABNORMAL) CBC with auto differential (11/05/2024 4:52 AM CDT) WBC 9.6 3.8 - 9.9 K/cumm Comment:Testing performed by : [address] [address] Hgb 12.0 11.9 - 15.5 g/dL MARCELINO HAYWOOD Comment:Testing performed by : [address] [address] Hct 38.7 35.6 - 45.5 % MARCELINO HAYWOOD Comment:Testing performed by : [address] [address] Plt 374 150 - 400 K/cumm MARCELINO HAYWOOD Comment:Testing performed by : [address] [address] MPV 10.5 9.1 - 12.3 fL MARCELINO HAYWOOD Comment:Testing performed by : [address] [place] [address] RBC 4.57 3.90 - 5.20 M/cumm MARCELINO Comment:Testing performed by : [address] [address] MCV 84.7 81.3 - 96.4 fL MARCELINO HAYWOOD Comment:Testing performed by : [address] [address] MCH 26.3(L) 27.1 - 33.3 pg MARCELINO Comment:Testing performed by : [address] [address] MCHC 31.0(L) 32.3 - 35.7 g/dL MARCELINO Comment:Testing performed by : [address] [address] RDW CV 16.9(H) 11.1 - 14.9 % MARCELINO Comment:Testing performed by : [address], [address] RDW SD 52.2(H) 35.7 - 48.1 fL MARCELINO Comment:Testing performed by : [address] [address] NRBC abs 0.00 0.00 - 0.01 K/cumm MARCELINO Comment:Testing performed by : [address] [address] Blood 11/05/2024 4:52 AM CDT 11/05/2024 5:31 AM CDT us Ananya MEANS LAB BLOOD ORDERABLES Final Re sult MARCELINO [address] [facility] Department [place] [address] * POCT glucose (11/05/2024 1:22 AM LOCOMOTIVE ENGINEER ELECTRIC) [facility] Glucose, POC 138 70 - 199 mg/dL Comment:Testing performed by : [address], [address] Glucose comment 1 Use This Result MARCELINO Comment:Testing performed by : [address] [address] Blood 11/05/2024 1:22 AM LOCOMOTIVE ENGINEER ELECTRIC 11/05/2024 1:22 AM LOCOMOTIVE ENGINEER ELECTRIC Satinder Dougherty MD LAB POCT ORDERABLES - D EVICE Final Result Performing Organization Address [facility] Co de Phone Number MARCELINO [address] [address] * POCT glucose (11/04/2024 10:34 PM LOCOMOTIVE ENGINEER ELECTRIC) Glucose, POC 150 70 - 199 mg/dL Comment:Testing performed by : [address] [address] Glucose comment 1 Use This Result MARCELINO Comment:Testing performed by : [address] [address] Blood 11/04/2024 10:3 4 PM LOCOMOTIVE ENGINEER ELECTRIC 11/04/2024 10:34 PM LOCOMOTIVE ENGINEER ELECTRIC Satinder Dougherty MD LAB POCT ORDERABLES - D EVICE Final Result Performing Organization Address [facility] de Phone Number [address] [address] * (ABNORMAL) Urinalysis reflex to microscopic and culture Urine, bladder (11/04/2024 6:17 PM LOCOMOTIVE ENGINEER ELECTRIC) Color, ur Yellow Yellow Comment:Testing performed by : [address] [address] Clarity, ur Cloudy(A) Clear MARCELINO Comment:Testing performed by : [address] [address] Specific gravity, ur 1.017 1.003 - 1.030 MARCELINO Comment:Testing performed by : [address] [address] pH, urine 6.5 MARCELINO Comment: Interpretive Data U rine pH is affected by diet, medications, systemic acid-base disturbances, and renal tubular function. pH may affect urinary stone formation. For example, urine pH below 6.0 may help reduce the tendency for calcium phosphate stones and pH greater than 6.0 may reduce the tendency for uric acid stone formation. Source: [facility] MD On-Line Current Interpretive Data was last revised on 2017 Testing performed by: [facility], [address] [place] [address], [place]., [address] Protein, ur ql 2+(A) Negative MARCELINO Comment:Testing performed by : [address] [address] Glucose, ur ql 1+(A) Negative MARCELINO Comment:Testing performed by : [address], [place]., [address] Ketones, ur 2+(A) Negative MARCELINO Comment:Testing performed by : [address], [place]., [address] Bilirubin, ur Negative Negative MARCELINO Comment:Testing performed by : [address] [address] Blood, ur 3+(A) Negative MARCELINO Comment:Testing performed by : [address], [place]., [address] Urobilinogen, ur 2.0(A) <2.0 mg/dL MARCELINO Comment:Testing performed by : [address] [address] Nitrite, ur Negative Negative MARCELINO Comment:Testing performed by : [address] [address] Leukocyte esterase, ur 4+(A) Negative MARCELINO Comment:Testing performed by : [address] [address] UA reflex comment Reflex to microscopic UA will be performed. MARCELINO Comment:Testing performed by : [address] [address] Urine, bladder 11/04/2024 6: 17 PM LOCOMOTIVE ENGINEER ELECTRIC 11/04/2024 6:21 PM LOCOMOTIVE ENGINEER ELECTRIC Narrative CERNER MH - 11/04/2024 6:24 PM LOCOMOTIVE ENGINEER ELECTRIC Straight catheterization please us Satinder Dougherty MD LAB MICROBIOLOGY - GENE RAL ORDERABLES Final Result Performing Organization Address [facility] Co de Phone Number MARCELINO [facility] [place] [address] * (ABNORMAL) Urinalysis, microscopic only (11/04/2024 6:17 PM LOCOMOTIVE ENGINEER ELECTRIC) WBC, ur >50(A) 0 - 5 /HPF Comment:Testing performed by : [address], [place]., [address] RBC, ur >50(A) 0 - 2 /HPF MARCELINO Comment:Testing performed by : [address], [place]., [address] Bacteria, ur 4+(A) MARCELINO Comment:Testing performed by : [address], [place]., [address] Mucous, ur Present(A) MARCELINO Comment:Testing performed by : [address], [place]., [address] Culture Reflex Comment Reflex to urine culture will be performed. MARCELINO Comment:Testing performed by : [address], [place]., [address] Urine, bladder 11/04/2024 6: 17 PM LOCOMOTIVE ENGINEER ELECTRIC 11/04/2024 6:21 PM LOCOMOTIVE ENGINEER ELECTRIC Satinder Dougherty MD LAB URINE ORDERABLES Fi nal Result Performing Organization Address [facility] Co de Phone Number MARCELINO [facility] [place] [address] * (ABNORMAL) Urine culture Urine, bladder (11/04/2024 6:17 PM LOCOMOTIVE ENGINEER ELECTRIC) Report Final Report: Greater than or equal to 100,000 colonies/mL of Enterococcus faecium (.) Comment:Testing performed by : [facility], [address] [facility], [place]., [address] Organism ENTEROCOCCUS FAECIUM MARCELINO Urine, bladder 11/04/2024 6: 17 PM LOCOMOTIVE ENGINEER ELECTRIC 11/04/2024 9:45 PM LOCOMOTIVE ENGINEER ELECTRIC Narrative MARCELINO HAYWOOD - 11/08/2024 4:05 PM CDT Urine culture reflexed based upon urinalysis results. Testing performed by [facility] Microbiology Laboratory ([phone]) Organism Antibiotic Method Susceptibility Enterococcus faecium Daptomycin (VLADIMIR) (VLADIMIR) INTERPRETA TION Susceptible Dose-dependent Enterococcus faecium Ampicillin (VLADIMIR) INTERPRETATION Resistant Enterococcus faecium Vancomycin (VLADIMIR) INTERPRETATION Resistant Enterococcus faecium Linezolid (VLADIMIR) INTERPRETATION Susceptible Enterococcus faecium Doxycycline (VLADIMIR) INTERPRETATIO N Resistant Enterococcus faecium Nitrofurantoin (VLADIMIR) INTERPRETATI ON Resistant Satinder Dougherty MD LAB MICROBIOLOGY - GENE RAL ORDERABLES Final Result Performing Organization Address [facility]/ZIP Co de Phone Number [address] [address] * POCT glucose (11/04/2024 5:07 PM LOCOMOTIVE ENGINEER ELECTRIC) Pathologist [facility] Glucose, POC 162 70 - 199 mg/dL Comment:Testing performed by : [address] [address] Blood 11/04/2024 5:07 PM LOCOMOTIVE ENGINEER ELECTRIC 11/04/2024 5:07 PM LOCOMOTIVE ENGINEER ELECTRIC Result [facility] Satinder Dougherty MD LAB POCT ORDERABLES - D EVICE Final Result Performing Organization Address [facility] Co de Phone Number [address] [address] * (ABNORMAL) aPTT (11/04/2024 2:21 PM LOCOMOTIVE ENGINEER ELECTRIC) Pathologist [facility] aPTT 62(H) 22 - 37 sec Comment: Ref Range High Interpretive data aPTT test has not been evaluated for monitoring heparin therapy. The anti-Xa is the preferred test. Current interpretive data was last revised on 2019. Testing performed by: [address] [address] Blood 11/04/2024 2:21 PM LOCOMOTIVE ENGINEER ELECTRIC 11/04/2024 2:26 PM LOCOMOTIVE ENGINEER ELECTRIC Satinder Dougherty MD LAB BLOOD ORDERABLES nal Result [facility] [address] [facility] Department [place] [address] * (ABNORMAL) Differential, auto (11/04/2024 8:54 AM LOCOMOTIVE ENGINEER ELECTRIC) Neutrophil abs 7.5(H) 1.5 - 6.5 K/cumm Comment:Testing performed by : [address] [address] Imm gran abs 0.1 0.0 - 0.1 K/cumm MARCELINO Comment:Testing performed by : [address] [address] Lymphocyte abs 1.0 0.8 - 3.3 K/cumm MARCELINO Comment:Testing performed by : [address] [address] Monocyte abs 0.8 0.2 - 0.8 K/cumm [facility] Comment:Testing performed by : [address] [address] Eosinophil abs 0.1 0.0 - 0.5 K/cumm [facility] Comment:Testing performed by : [address] [address] Basophil abs 0.0 0.0 - 0.1 K/cumm [facility] Comment:Testing performed by : [address] [address] Neutrophil pct 79.1 % [facility] Comment: Interpretive Data Percent cell count reference ranges are not reported, since discordance with absolute values may lead to misinterpretation of CBC data. Current Interpretive Data was last revised on 2017. Testing performed by: [address] [address] Imm gran pct 0.6 % MARCELINO Comment: Interpretive Data Percent cell count reference ranges are not reported, since discordance with absolute values may lead to misinterpretation of CBC data. Current Interpretive Data was last revised on 2017. Testing performed by: [address] [address] Lymphocyte pct 10.4 % MARCELINO Comment: Interpretive Data Percent cell count reference ranges are not reported, since discordance with absolute values may lead to misinterpretation of CBC data. Current Interpretive Data was last revised on 2017. Testing performed by: [address] [address] Monocyte pct 8.3 % MARCELINO Comment: Interpretive Data Percent cell count reference ranges are not reported, since discordance with absolute values may lead to misinterpretation of CBC data. Current Interpretive Data was last revised on 2017. Testing performed by: [address] [address] Eosinophil pct 1.3 % MARCELINO Comment: Interpretive Data Percent cell count reference ranges are not reported, since discordance with absolute values may lead to misinterpretation of CBC data. Current Interpretive Data was last revised on 2017. Testing performed by: [address] [address] Basophil pct 0.3 % MARCELINO Comment: Interpretive Data Percent cell count reference ranges are not reported, since discordance with absolute values may lead to misinterpretation of CBC data. Current Interpretive Data was last revised on 2017. Testing performed by: [address] [address] Blood 11/04/2024 8:54 AM LOCOMOTIVE ENGINEER ELECTRIC 11/04/2024 9:10 AM LOCOMOTIVE ENGINEER ELECTRIC us Ananya MEANS LAB BLOOD ORDERABLES Final Re sult [facility] [address] [facility] Department [place] [address] * (ABNORMAL) CBC with auto differential (11/04/2024 8:54 AM LOCOMOTIVE ENGINEER ELECTRIC) WBC 9.5 3.8 - 9.9 K/cumm Comment:Testing performed by : [address] [address] Hgb 13.1 11.9 - 15.5 g/dL MARCELINO Comment:Testing performed by : [address] [address] Hct 41.5 35.6 - 45.5 % MARCELINO Comment:Testing performed by : [address], [address] Plt 387 150 - 400 K/cumm MARCELINO Comment:Testing performed by : [address], [address] MPV 10.4 9.1 - 12.3 fL MARCELINO Comment:Testing performed by : [address], [address] RBC 4.89 3.90 - 5.20 M/cumm MARCELINO Comment:Testing performed by : [address], [address] MCV 84.9 81.3 - 96.4 fL MARCELINO Comment:Testing performed by : [address] [address] MCH 26.8(L) 27.1 - 33.3 pg MARCELINO Comment:Testing performed by : [address], [address] MCHC 31.6(L) 32.3 - 35.7 g/dL MARCELINO Comment:Testing performed by : [address], [address] RDW CV 16.9(H) 11.1 - 14.9 % MARCELINO Comment:Testing performed by : [address], [address] RDW SD 52.2(H) 35.7 - 48.1 fL MARCELINO Comment:Testing performed by : [address], [address] NRBC abs 0.00 0.00 - 0.01 K/cumm MARCELINO Comment:Testing performed by : [address], [address] Blood 11/04/2024 8:54 AM LOCOMOTIVE ENGINEER ELECTRIC 11/04/2024 9:10 AM LOCOMOTIVE ENGINEER ELECTRIC us Ananya MEANS LAB BLOOD ORDERABLES Final Re sult MARCELINO [address] [address] * (ABNORMAL) aPTT (11/04/2024 8:54 AM LOCOMOTIVE ENGINEER ELECTRIC) aPTT 69(H) 22 - 37 sec Comment: Ref Range High Interpretive data aPTT test has not been evaluated for monitoring heparin therapy. The anti-Xa is the preferred test. Current interpretive data was last revised on 2019. Testing performed by: [address] [address] Blood 11/04/2024 8:54 AM LOCOMOTIVE ENGINEER ELECTRIC 11/04/2024 9:10 AM LOCOMOTIVE ENGINEER ELECTRIC Jarrett Hurley MD LAB BLOOD ORDERABLES Fi nal Result Performing Organization Address [facility] de Phone Number ORLIN[address] [address] * POCT glucose (11/04/2024 8:47 AM LOCOMOTIVE ENGINEER ELECTRIC) Glucose, POC 153 70 - 199 mg/dL Comment:Testing performed by : [address] [address] Glucose comment 1 Use This Result [facility] Comment:Testing performed by : [address] [address] Blood 11/04/2024 8:47 AM LOCOMOTIVE ENGINEER ELECTRIC 11/04/2024 8:47 AM LOCOMOTIVE ENGINEER ELECTRIC Satinder Dougherty MD LAB POCT ORDERABLES - D EVICE Final Result Performing Organization Address [facility] Co de Phone Number [address] [address] * POCT glucose (11/04/2024 3:35 AM LOCOMOTIVE ENGINEER ELECTRIC) Glucose, POC 162 70 - 199 mg/dL Comment:Testing performed by : [address] [address] Glucose comment 1 Use This Result MARCELINO HAYWOOD Comment:Testing performed by : [address] [address] Blood 11/04/2024 3:35 AM LOCOMOTIVE ENGINEER ELECTRIC 11/04/2024 3:35 AM LOCOMOTIVE ENGINEER ELECTRIC Satinder Dougherty MD LAB POCT ORDERABLES - D EVICE Final Result Performing Organization Address [facility] de Phone Number MARCELINO [address] [address] * (ABNORMAL) aPTT (11/04/2024 12:10 AM LOCOMOTIVE ENGINEER ELECTRIC) aPTT 52(H) 22 - 37 sec Comment: Ref Range High Interpretive data aPTT test has not been evaluated for monitoring heparin therapy. The anti-Xa is the preferred test. Current interpretive data was last revised on 2019. Testing performed by: [address] [address] Blood 11/04/2024 12:1 0 AM LOCOMOTIVE ENGINEER ELECTRIC 11/04/2024 12:13 AM LOCOMOTIVE ENGINEER ELECTRIC Jarrett Hurley MD LAB BLOOD ORDERABLES Fi nal Result Performing Organization Address [facility] de Phone Number ORLIN[address] [address] * POCT glucose (11/03/2024 11:02 PM LOCOMOTIVE ENGINEER ELECTRIC) Glucose, POC 135 70 - 199 mg/dL Comment:Testing performed by : [address] [address] Glucose comment 1 Use This Result MARCELINO HAYWOOD Comment:Testing performed by : [address] [address] Blood 11/03/2024 11:0 2 PM LOCOMOTIVE ENGINEER ELECTRIC 11/03/2024 11:02 PM LOCOMOTIVE ENGINEER ELECTRIC Satinder Dougherty MD LAB POCT ORDERABLES - D EVICE Final Result Performing Organization Address [facility] Co de Phone Number MARCELINO [address] [place] [address] * POCT glucose (11/03/2024 7:11 PM LOCOMOTIVE ENGINEER ELECTRIC) Glucose, POC 148 70 - 199 mg/dL Comment:Testing performed by : [address] [address] Glucose comment 1 Use This Result MARCELINO Comment:Testing performed by : [address] [address] Blood 11/03/2024 7:11 PM LOCOMOTIVE ENGINEER ELECTRIC 11/03/2024 7:11 PM LOCOMOTIVE ENGINEER ELECTRIC Satinder Dougherty MD LAB POCT ORDERABLES - D EVICE Final Result Performing Organization Address [facility] de Phone Number MARCELINO [facility] [place] [address] * (ABNORMAL) aPTT (11/03/2024 4:26 PM LOCOMOTIVE ENGINEER ELECTRIC) Pathologist [facility] aPTT 105(H) 22 - 37 sec Comment: Ref Range High Interpretive data aPTT test has not been evaluated for monitoring heparin therapy. The anti-Xa is the preferred test. Current interpretive data was last revised on 2019. Testing performed by: [address] [address] Blood 11/03/2024 4:26 PM LOCOMOTIVE ENGINEER ELECTRIC 11/03/2024 4:32 PM LOCOMOTIVE ENGINEER ELECTRIC Satinder Dougherty MD LAB BLOOD ORDERABLES Fi nal Result Performing Organization Address [facility] Co de Phone Number MARCELINO [facility] [place] [address] * POCT glucose (11/03/2024 4:01 PM LOCOMOTIVE ENGINEER ELECTRIC) Glucose, POC 133 70 - 199 mg/dL Comment:Testing performed by : [address] [address] Glucose comment 1 Use This Result CERNER Comment:Testing performed by : [facility], [address] [place] [address]., [address] Glucose comment 2 RN/MD Notified MARCELINO Comment:Testing performed by : [address] [address] Blood 11/03/2024 4:01 PM LOCOMOTIVE ENGINEER ELECTRIC 11/03/2024 4:01 PM LOCOMOTIVE ENGINEER ELECTRIC Satinder Dougherty MD LAB POCT ORDERABLES - D EVICE Final Result Performing Organization Address [facility] de Phone Number [address] [place] [address] * POCT glucose (11/03/2024 11:57 AM LOCOMOTIVE ENGINEER ELECTRIC) [facility] Glucose, POC 142 70 - 199 mg/dL Comment:Testing performed by : [address] [address] Glucose comment 1 Use This Result MARCELINO Comment:Testing performed by : [address] [address] Glucose comment 2 RN/MD Notified MARCELINO Comment:Testing performed by : [address] [address] Blood 11/03/2024 11:5 7 AM LOCOMOTIVE ENGINEER ELECTRIC 11/03/2024 11:57 AM LOCOMOTIVE ENGINEER ELECTRIC Satinder Dougherty MD LAB POCT ORDERABLES - D EVICE Final Result Performing Organization Address [facility] de Phone Number [facility] [address] [facility] [place] [address] * TRANSTHORACIC ECHO (TTE) LIMITED/FOLLOW UP WO DOPPLER/CF W CONTRAST (11/03/2024 11:55 AM LOCOMOTIVE ENGINEER ELECTRIC) [facility] LV EF 55-60 % CONS SCIMAGE Anatomical Region Laterality Modality Ultrasound 11/03/2024 11:4 1 AM LOCOMOTIVE ENGINEER ELECTRIC Narrative 11/03/2024 12:41 PM LOCOMOTIVE ENGINEER ELECTRIC Transthoracic Echocardiographic Report Patient Name: SHARI KAISER M : 1940 (84y 5m) Gender: F Study Date: 11/03/2024 11:41:17 AM Ht(Inch): 66 Wt(Lb): 164 BSA: 1.86 Aircraft Accessories Mechanic: Saskia Castanon EDSON Location: [id number] Order Provider: SATINDER DOUGHERTY BMI: 26.47 Ref Provider: SATINDER DOUGHERTY - PROCEDURES: Echocardiographic Report: ([id number]) Limited Echocardiography with contrast, transthoracic, 2D, includes [...] By: Jarrett Hurley MD 11/03/2024 12:40:40 PM LOCOMOTIVE ENGINEER ELECTRIC Procedure Note Jarrett Hurley MD - 11/03/2024 Transthoracic Echocardiographic Report Patient Name: SHARI KAISER M : 1940 (84y 5m) Gender: F Study Date: 11/03/2024 11:41:17 AM Ht(Inch): 66 Wt(Lb): 164 BSA: 1.86 Aircraft Accessories Mechanic: Saskia Castanon RDCS Location: [place] [address] Order Provider:SATINDER DOUGHERTY BMI: 26.47 Ref Provider: SATINDER DOUGHERTY - PROCEDURES: Echocardiographic Report: ([id number]) Limited Echocardiography with contrast,transthoracic, 2D, includes M-mode [...] By: Jarrett Hurley MD 11/03/2024 12:40:40 PM LOCOMOTIVE ENGINEER ELECTRIC Satinder Dougherty MD CV ECHO PROCEDURES Gena l Result * (ABNORMAL) aPTT (11/03/2024 9:36 AM LOCOMOTIVE ENGINEER ELECTRIC) aPTT 67(H) 22 - 37 sec Comment: Ref Range High Interpretive data aPTT test has not been evaluated for monitoring heparin therapy. The anti-Xa is the preferred test. Current interpretive data was last revised on 2019. Testing performed by: [address] [address] Blood 11/03/2024 9:36 AM LOCOMOTIVE ENGINEER ELECTRIC 11/03/2024 9:40 AM LOCOMOTIVE ENGINEER ELECTRIC Satinder Dougherty MD LAB BLOOD ORDERABLES Fi nal Result Performing Organization Address [facility] Co de Phone Number MARCELINO [address] [employer] [place] [address] * POCT glucose (11/03/2024 8:00 AM LOCOMOTIVE ENGINEER ELECTRIC) Glucose, POC 148 70 - 199 mg/dL Comment:Testing performed by : [address] [address] Glucose comment 1 Use This Result MARCELINO Comment:Testing performed by : [address] [address] Glucose comment 2 RN/MD Notified MARCELINO Comment:Testing performed by : [address] [address] Blood 11/03/2024 8:00 AM LOCOMOTIVE ENGINEER ELECTRIC 11/03/2024 8:00 AM LOCOMOTIVE ENGINEER ELECTRIC Satinder Dougherty MD LAB POCT ORDERABLES - D EVICE Final Result Performing Organization Address City/[facility]/ZIP Co de Phone Number ORLIN[address] [place] [address] * POCT glucose (11/03/2024 4:09 AM LOCOMOTIVE ENGINEER ELECTRIC) Glucose, POC 165 70 - 199 mg/dL Comment:Testing performed by : [address] [address] Glucose comment 1 RN/MD Notified MARCELINO Comment:Testing performed by : [facility], [address] [place] [address]., [address] Glucose comment 2 Use This Result MARCELINO Comment:Testing performed by : [address] [address] Blood 11/03/2024 4:09 AM LOCOMOTIVE ENGINEER ELECTRIC 11/03/2024 4:09 AM LOCOMOTIVE ENGINEER ELECTRIC us Satinder Dougherty MD LAB POCT ORDERABLES - D EVICE Final Result [facility] [address] [facility] Department [place] [address] * Differential, auto (11/03/2024 2:21 AM LOCOMOTIVE ENGINEER ELECTRIC) Neutrophil abs 5.0 1.5 - 6.5 K/cumm Comment:Testing performed by : [address] [address] Imm gran abs 0.0 0.0 - 0.1 K/cumm MARCELINO Comment:Testing performed by : [address] [address] Lymphocyte abs 1.0 0.8 - 3.3 K/cumm MARCELINO Comment:Testing performed by : [address] [address] Monocyte abs 0.7 0.2 - 0.8 K/cumm MARCELINO Comment:Testing performed by : [address] [address] Eosinophil abs 0.3 0.0 - 0.5 K/cumm MARCELINO Comment:Testing performed by : [address] [address] Basophil abs 0.0 0.0 - 0.1 K/cumm MARCELINO Comment:Testing performed by : [address] [address] Neutrophil pct 70.9 % MARCELINO Comment: Interpretive Data Percent cell count reference ranges are not reported, since discordance with absolute values may lead to misinterpretation of CBC data. Current Interpretive Data was last revised on 2017. Testing performed by: [address] [address] Imm gran pct 0.4 % [facility] Comment: Interpretive Data Percent cell count reference ranges are not reported, since discordance with absolute values may lead to misinterpretation of CBC data. Current Interpretive Data was last revised on 2017. Testing performed by: [address] [address] Lymphocyte pct 14.0 % [facility] Comment: Interpretive Data Percent cell count reference ranges are not reported, since discordance with absolute values may lead to misinterpretation of CBC data. Current Interpretive Data was last revised on 2017. Testing performed by: [address] [address] Monocyte pct 10.3 % [facility] Comment: Interpretive Data Percent cell count reference ranges are not reported, since discordance with absolute values may lead to misinterpretation of CBC data. Current Interpretive Data was last revised on 2017. Testing performed by: [address] [address] Eosinophil pct 4.0 % [facility] Comment: Interpretive Data Percent cell count reference ranges are not reported, since discordance with absolute values may lead to misinterpretation of CBC data. Current Interpretive Data was last revised on 2017. Testing performed by: [address] [address] Basophil pct 0.4 % [facility] Comment: Interpretive Data Percent cell count reference ranges are not reported, since discordance with absolute values may lead to misinterpretation of CBC data. Current Interpretive Data was last revised on 2017. Testing performed by: [address] [address] Blood 11/03/2024 2:21 AM LOCOMOTIVE ENGINEER ELECTRIC 11/03/2024 3:01 AM LOCOMOTIVE ENGINEER ELECTRIC us Ananya MEANS LAB BLOOD ORDERABLES Final Re sult [facility] [address] [facility] Department [place] [address] * (ABNORMAL) CBC with auto differential (11/03/2024 2:21 AM LOCOMOTIVE ENGINEER ELECTRIC) [facility] WBC 7.0 3.8 - 9.9 K/cumm Comment:Testing performed by : [address] [address] Hgb 11.3(L) 11.9 - 15.5 g/dL MARCELINO Comment:Testing performed by : [address] [address] Hct 37.1 35.6 - 45.5 % MARCELINO Comment:Testing performed by : [address] [address] Plt 332 150 - 400 K/cumm MARCELINO Comment:Testing performed by : [address] [address] MPV 10.1 9.1 - 12.3 fL MARCELINO Comment:Testing performed by : [address] [address] RBC 4.27 3.90 - 5.20 M/cumm MARCELINO Comment:Testing performed by : [address] [address] MCV 86.9 81.3 - 96.4 fL MARCELINO Comment:Testing performed by : [address] [address] MCH 26.5(L) 27.1 - 33.3 pg MARCELINO Comment:Testing performed by : [address] [address] MCHC 30.5(L) 32.3 - 35.7 g/dL MARCELINO Comment:Testing performed by : [address] [address] RDW CV 17.1(H) 11.1 - 14.9 % MARCELINO Comment:Testing performed by : [address] [address] RDW SD 54.7(H) 35.7 - 48.1 fL MARCELINO Comment:Testing performed by : [address], [address] NRBC abs 0.00 0.00 - 0.01 K/cumm [facility] Comment:Testing performed by : [address] [address] Blood 11/03/2024 2:21 AM LOCOMOTIVE ENGINEER ELECTRIC 11/03/2024 3:01 AM LOCOMOTIVE ENGINEER ELECTRIC Ananya MEANS LAB BLOOD ORDERABLES Final Re sult Performing Organization Address [facility] Co de Phone Number [address] [place] [address] * aPTT (11/03/2024 2:21 AM LOCOMOTIVE ENGINEER ELECTRIC) aPTT 32 22 - 37 sec Comment: Interpretive data aPTT test has not been evaluated for monitoring heparin therapy. The anti-Xa is the preferred test. Current interpretive data was last revised on 2019. Testing performed by: [address] [address] Blood 11/03/2024 2:21 AM LOCOMOTIVE ENGINEER ELECTRIC 11/03/2024 2:57 AM LOCOMOTIVE ENGINEER ELECTRIC Satinder Dougherty MD LAB BLOOD ORDERABLES Fi nal Result Performing Organization Address [facility] de Phone Number [address] [address] * (ABNORMAL) Lipid panel (11/03/2024 2:21 AM LOCOMOTIVE ENGINEER ELECTRIC) Cholesterol 148 30 - 199 mg/dL Comment: [...] last revised on 2018. Testing performed by: [address] [address] Triglycerides 150(H) <=149 mg/dL MARCELINO Comment: Interpretive [...] last revised on 2018. Testing performed by: [address] [address] HDL 34(L) >=40 mg/dL MARCELINO Comment: Interpretive [...] last revised on 2018. Testing performed by: [address] [address] LDL, calculated 88 <=129 mg/dL MARCELINO Comment: Interpretive Data Ages < or = 19 years Acceptable: <110 mg/dL Borderline high: 110-129 mg/dL High: >or= 130 mg/dL Ages > or = 20 years Optimal: <100 mg/dL Near optimal: 100-129 mg/dL Borderline high: 130-159 mg/dL High: >160 mg/dL Calculated using the Hooks LDL-C estimating equation. This equation was implemented on 2024. Prior to this date LDL-C was estimated using the Friedewald equation. Literature References: 1. Expert Panel on Integrated Guidelines for Cardiovascular Health and Risk Reduction in Children and Adolescents. Pediatrics 2011;128:S213 2. NCEP Expert Panel. Circulation 2004;110:227 3. Jessee M et al. JAQUELINE Cardiol. 2020 December 28;5(5):540-548. doi: 10.1001/jamacardio.2020.0013 Current Interpretive Data was last revised on 2024. Testing performed by: [address] [address] Non-HDL Cholesterol 114 mg/dL MARCELINO Comment: Interpretive Data Ages < [...] last revised on 2018. Testing performed by: [address] [address] Chol/HDL ratio 4 MARCELINO Comment:Testing performed by : [address] [address] Blood 11/03/2024 2:21 AM LOCOMOTIVE ENGINEER ELECTRIC 11/03/2024 2:57 AM LOCOMOTIVE ENGINEER ELECTRIC us Ananya MEANS LAB BLOOD ORDERABLES Final Re sult MARCELINO [address] [facility] Department [place] [address] * POCT glucose (11/03/2024 12:21 AM LOCOMOTIVE ENGINEER ELECTRIC) [facility] Signature Glucose, POC 143 70 - 199 mg/dL Comment:Testing performed by : [address] [address] Glucose comment 1 Use This Result MARCELINO HAYWOOD Comment:Testing performed by : [address] [place]., [address] Glucose comment 2 RN/MD Notified MARCELINO Comment:Testing performed by : [facility], [address] [place] [address]., [address] Blood 11/03/2024 12:2 1 AM LOCOMOTIVE ENGINEER ELECTRIC 11/03/2024 12:21 AM LOCOMOTIVE ENGINEER ELECTRIC Satinder Dougherty MD LAB POCT ORDERABLES - D EVICE Final Result Performing Organization Address [facility] de Phone Number MARCELINO [facility] [place] [address] * POCT glucose (11/02/2024 8:31 PM LOCOMOTIVE ENGINEER ELECTRIC) [facility] Glucose, POC 156 70 - 199 mg/dL Comment:Testing performed by : [facility], [address] [place] [address]., [address] Glucose comment 1 Use This Result MARCELINO HAYWOOD Comment:Testing performed by : [address] [address] Glucose comment 2 RN/MD Notified MARCELINO Comment:Testing performed by : [facility], [address] [place] [address]., [address] Blood 11/02/2024 8:31 PM LOCOMOTIVE ENGINEER ELECTRIC 11/02/2024 8:31 PM LOCOMOTIVE ENGINEER ELECTRIC Satinder Dougherty MD LAB POCT ORDERABLES - D EVICE Final Result Performing Organization Address [facility] de Phone Number MARCELINO [facility] [place] [address] * CT Chest Abdomen Pelvis W Contrast (11/02/2024 8:01 PM LOCOMOTIVE ENGINEER ELECTRIC) Anatomical Region Laterality Modality Body N/A Computed Tomogra phy 11/02/2024 10:4 0 PM LOCOMOTIVE ENGINEER ELECTRIC Narrative 11/02/2024 10:59 PM LOCOMOTIVE ENGINEER ELECTRIC EXAM DESCRIPTION: CT CHEST ABDOMEN PELVIS W [...] Iliana Hannah M.D. SN: SN Report ID: [id number] Reading Location: [id number] Procedure Note Iliana Hannah MD - 11/02/2024 [...] Iliana Hannah M.D. SN: SN Report ID: [id number] Reading Location: [id number] us Ananya MEANS IMG CT PROCEDURES Final Resul t * (ABNORMAL) Troponin T high-sensitivity 6-hour (11/02/2024 7:24 PM LOCOMOTIVE ENGINEER ELECTRIC) Trop T hs 214(C) <=14 ng/L Comment: Critical Result called to and read back by [id number], DATE: 2024-11-02 19:53:11 BY: [id number] Interpretive Data For further hscTnT resources including the diagnostic algorithm and an aid in interpretation, copy and paste this link: https://nrl.testcatalog.org/show/hsTrop Current Interpretive Data last revised 2020. Testing performed by: [address] [address] Trop T hs pct delta 35(C) % MARCELINO Comment: Critical Result called to and read back by [email or web address], DATE: 2024-11-02 19:53:11 BY: [id number] Testing performed by: [facility], [address] [place] [address]., [address] Trop T hs interp Significa nt(C) MARCELINO HAYWOOD Comment: Critical Result called to and read back by [id number], DATE: 2024-11-02 19:53:11 BY: [id number] Testing performed by: [address] [address] Blood 11/02/2024 7:24 PM LOCOMOTIVE ENGINEER ELECTRIC 11/02/2024 7:29 PM LOCOMOTIVE ENGINEER ELECTRIC Narrative MARCELINO - 11/02/2024 7:53 PM LOCOMOTIVE ENGINEER ELECTRIC Critical result called to and read back by [email or web address]_ (_) on 11/02/2024 19:52:06 CST_ to [id number]_. us Gee Yao DO LAB BLOOD ORDERABLES Final Res ult MARCELINO HAYWOOD [address] [facility] Department [place] [address] * POCT glucose (11/02/2024 6:48 PM LOCOMOTIVE ENGINEER ELECTRIC) Glucose, POC 138 70 - 199 mg/dL Comment:Testing performed by : [facility], [address] [place] [address], [place]., [address] Blood 11/02/2024 6:48 PM LOCOMOTIVE ENGINEER ELECTRIC 11/02/2024 6:48 PM LOCOMOTIVE ENGINEER ELECTRIC Satinder Dougherty MD LAB POCT ORDERABLES - D EVICE Final Result MARCELINO [address] [facility] Department [place] [address] * Blood culture Blood (11/02/2024 5:54 PM LOCOMOTIVE ENGINEER ELECTRIC) Report Final Report: No growth Comment:Testing performed by : [facility], [address] [facility] [place] [address] Blood 11/02/2024 5:54 PM LOCOMOTIVE ENGINEER ELECTRIC 11/02/2024 10:13 PM LOCOMOTIVE ENGINEER ELECTRIC Narrative MARCELINO - 11/07/2024 7:00 AM CDT [...] performance characteristics have been verified by the [facility] Microbiology Laboratory. For questions about this culture, contact the Microbiology Laboratory at [phone]. Interpretive data was last revised on 24. Ananya MEANS LAB MICROBIOLOGY - GENERAL OR DERABLES Final Result MARCELINO HAYWOOD [address] [facility] Department [place] [address] * Blood culture Blood (11/02/2024 5:54 PM LOCOMOTIVE ENGINEER ELECTRIC) Report Final Report: No growth Comment:Testing performed by : [facility], [address] [place]., [address] Blood 11/02/2024 5:54 PM LOCOMOTIVE ENGINEER ELECTRIC 11/02/2024 10:13 PM LOCOMOTIVE ENGINEER ELECTRIC Narrative MARCELINO - 11/07/2024 7:00 AM CDT [...] performance characteristics have been verified by the [facility] Microbiology Laboratory. For questions about this culture, contact the Microbiology Laboratory at [phone]. Interpretive data was last revised on 24. Ananya MEANS LAB MICROBIOLOGY - GENERAL OR DERABLES Final Result Performing Organization Address City/[facility]/ZIP Co de Phone Number MARCELINO HAYWOOD [address] [facility] [place] [address] * aPTT (11/02/2024 5:54 PM LOCOMOTIVE ENGINEER ELECTRIC) aPTT 28 22 - 37 sec Comment: Interpretive data aPTT test has not been evaluated for monitoring heparin therapy. The anti-Xa is the preferred test. Current interpretive data was last revised on 2019. Testing performed by: [address] [address] Blood 11/02/2024 5:54 PM LOCOMOTIVE ENGINEER ELECTRIC 11/02/2024 5:56 PM LOCOMOTIVE ENGINEER ELECTRIC Narrative MARCELINO - 11/02/2024 6:08 PM LOCOMOTIVE ENGINEER ELECTRIC Baseline prior to heparin initiation Ananya MEANS LAB BLOOD ORDERABLES Final Re sult MARCELINO [facility] [place] [address] * (ABNORMAL) Protime-INR (11/02/2024 5:54 PM LOCOMOTIVE ENGINEER ELECTRIC) PT 15.3(H) 12.0 - 14.6 sec Comment: Ref Range High Testing performed by: [address] [address] INR 1.2 0.9 - 1.2 MARCELINO Comment: Ref Range High Interpretive data Oral anticoagulant therapeutic ranges: Venous thromboembolism prophylaxis or treatment: 2.0-3.0 CARDIOLOGY Standard range: 2.0-3.0 High-intensity range: 2.5-3.5 Refer to indication-specific guidelines for appropriate target ranges for prosthetic heart valve replacement. Current interpretive data was last revised on 2019. Testing performed by: [address] [address] Blood 11/02/2024 5:54 PM LOCOMOTIVE ENGINEER ELECTRIC 11/02/2024 5:56 PM LOCOMOTIVE ENGINEER ELECTRIC Narrative MARCELINO - 11/02/2024 6:07 PM LOCOMOTIVE ENGINEER ELECTRIC Baseline prior to heparin initiation us Ananya MEANS LAB BLOOD ORDERABLES Final Re sult [facility] [address] [facility] Department [place] [address] * (ABNORMAL) CBC without differential (11/02/2024 5:54 PM LOCOMOTIVE ENGINEER ELECTRIC) [facility] Signature WBC 8.0 3.8 - 9.9 K/cumm Comment:Testing performed by : [address] [address] Hgb 11.4(L) 11.9 - 15.5 g/dL MARCELINO Comment:Testing performed by : [address] [address] Hct 37.2 35.6 - 45.5 % MARCELINO Comment:Testing performed by : [address] [address] Plt 376 150 - 400 K/cumm MARCELINO Comment:Testing performed by : [address] [address] MPV 10.1 9.1 - 12.3 fL MARCELINO Comment:Testing performed by : [address] [address] RBC 4.25 3.90 - 5.20 M/cumm MARCELINO Comment:Testing performed by : [address] [address] MCV 87.5 81.3 - 96.4 fL MARCELINO Comment:Testing performed by : [address] [address] MCH 26.8(L) 27.1 - 33.3 pg MARCELINO Comment:Testing performed by : [address] [address] MCHC 30.6(L) 32.3 - 35.7 g/dL MARCELINO Comment:Testing performed by : [address] [address] RDW CV 17.1(H) 11.1 - 14.9 % MARCELINO Comment:Testing performed by : [address] [address] RDW SD 54.8(H) 35.7 - 48.1 fL MARCELINO Comment:Testing performed by : [address] [address] NRBC abs 0.00 0.00 - 0.01 K/cumm MARCELINO Comment:Testing performed by : [facility], [address] [place] [address]., [address] Blood 11/02/2024 5:54 PM LOCOMOTIVE ENGINEER ELECTRIC 11/02/2024 5:56 PM LOCOMOTIVE ENGINEER ELECTRIC Narrative MARCELINO - 11/02/2024 5:59 PM LOCOMOTIVE ENGINEER ELECTRIC Baseline prior to heparin initiation Ananya MEANS LAB BLOOD ORDERABLES Final Re sult Performing Organization Address City/[facility]/ZIP Co de Phone Number [facility] [place] [address] * Magnesium (11/02/2024 5:54 PM LOCOMOTIVE ENGINEER ELECTRIC) [facility] Magnesium 1.5 1.4 - 2.5 mg/dL Comment:Testing performed by : [facility], [address] [place] [address]., [address] Blood 11/02/2024 5:54 PM LOCOMOTIVE ENGINEER ELECTRIC 11/02/2024 5:56 PM LOCOMOTIVE ENGINEER ELECTRIC Ananya MEANS LAB BLOOD ORDERABLES Final Re sult Performing Organization Address City/[facility]/ZIP Co de Phone Number [facility] Department [place] [address] * (ABNORMAL) Troponin T high-sensitivity 4-hour (11/02/2024 4:15 PM LOCOMOTIVE ENGINEER ELECTRIC) Pathologist [facility] Trop T hs 204(C) <=14 ng/L Comment: Critical Result called to and read back by [email or web address], DATE: 2024-11-02 16:40:50 BY: Interpretive Data For further hscTnT resources including the diagnostic algorithm and an aid in interpretation, copy and paste this link: https://nrl.testcatalog.org/show/hsTrop Current Interpretive Data last revised 2020. Testing performed by: [facility], [address] [place] [address]., [address] Trop T hs pct delta 29(C) % MARCELINO Comment: Critical Result called to and read back by [id number], DATE: 2024-11-02 16:40:50 BY: Testing performed by: [address] [address] Trop T hs interp Significa nt(C) MARCELINO Comment: Critical Result called to and read back by [id number], DATE: 2024-11-02 16:40:50 BY: Testing performed by: [address] [address] Blood 11/02/2024 4:15 PM LOCOMOTIVE ENGINEER ELECTRIC 11/02/2024 4:17 PM LOCOMOTIVE ENGINEER ELECTRIC Narrative MARCELINO - 11/02/2024 4:40 PM LOCOMOTIVE ENGINEER ELECTRIC Critical result called to and read back by [id number] (_) on 11/02/2024 16:40:30 CST_ to [id number]_. [employer] LAB BLOOD ORDERABLES Final Res ult Performing Organization Address City/[facility]/ZIP Co de Phone Number MARCELINO [address] [employer] [place] [address] * Sepsis Lactate w/ Reflex (11/02/2024 3:15 PM LOCOMOTIVE ENGINEER ELECTRIC) Sepsis Lactate 1.1 0.7 - 2.0 mmol/L Comment:Testing performed by : [address] [address] Blood 11/02/2024 3:15 PM LOCOMOTIVE ENGINEER ELECTRIC 11/02/2024 3:19 PM LOCOMOTIVE ENGINEER ELECTRIC [employer] LAB BLOOD ORDERABLES Final Res ult Performing Organization Address City/[facility]/ZIP Co de Phone Number MARCELINO [address] [employer] [place] [address] * (ABNORMAL) Troponin T high-sensitivity 2-hour (11/02/2024 3:02 PM LOCOMOTIVE ENGINEER ELECTRIC) Trop T hs 198(H) <=14 ng/L Comment: Interpretive Data For further hscTnT resources including the diagnostic algorithm and an aid in interpretation, copy and paste this link: https://nrl.testcatalog.org/show/hsTrop Current Interpretive Data last revised 2020. Testing performed by: [address] [address] Trop T hs pct delta 25(C) % MARCELINO Comment: Critical Result called to and read back by [email or web address], DATE: 2024-11-02 15:30:54 BY: Testing performed by: [address] [address] Trop T hs interp Significa nt(C) MARCELINO Comment: Critical Result called to and read back by [id number], DATE: 2024-11-02 15:30:54 BY: Testing performed by: [address] [address] Blood 11/02/2024 3:02 PM LOCOMOTIVE ENGINEER ELECTRIC 11/02/2024 3:05 PM LOCOMOTIVE ENGINEER ELECTRIC Narrative MARCELINO - 11/02/2024 3:31 PM LOCOMOTIVE ENGINEER ELECTRIC Critical result called to and read back by _[email or web address] (_) on 11/02/2024 15:30:00 CST_ to [id number]_. us Gee Yao DO LAB BLOOD ORDERABLES Final Res ult [facility] [address] [facility] Department [place] [address] * CT Head WO Contrast (11/02/2024 2:16 PM LOCOMOTIVE ENGINEER ELECTRIC) Anatomical Region Laterality Modality Head and Neck N/A Computed Tomogra phy 11/02/2024 2:33 PM LOCOMOTIVE ENGINEER ELECTRIC Narrative 11/02/2024 2:35 PM LOCOMOTIVE ENGINEER ELECTRIC EXAM DESCRIPTION: CT HEAD WO CONTRAST REASON [...] 11/02/2024 2:35 PM - Electronically signed by Juna Francisco Campbell M.D. AR: VILMA Report ID: [id number] Reading Location: [id number] Procedure Note Juan Francisco Campbell MD - [...] Francisco Campbell M.D. AR: VILMA Report ID: [id number] Reading Location: [place] [address] Gee Yao DO IMG CT PROCEDURES Final Result * Influenza A/B, RSV, and COVID-19 PCR Nasopharyngeal (11/02/2024 1:59 PM LOCOMOTIVE ENGINEER ELECTRIC) [facility] COVID-19 RNA Negative Negative Comment:Testing performed by : [address] [address] Influenza A RNA Negative Negative [facility] Comment:Testing performed by : [address] [address] Influenza B RNA Negative Negative [facility] Comment:Testing performed by : [address] [address] RSV RNA Negative Negative [facility] Comment: Interpretive data: Testing performed by [facility]. This test is performed using the [employer] Xpert Xpress CoV-2/Flu/RSV plus assay. This is a multiplex, real-time reverse transcriptase PCR assay intended for the qualitative detection of nucleic acid from SARS-CoV-2, influenza A, influenza B, and respiratory syncytial virus. This assay has been cleared by the [place] Food and Drug administration. The performance characteristics have been verified by the [facility]. Results must be considered in the clinical context, and a negative result does not rule out infection. Interpretive Data last revised 2023 Testing performed by: [address] [address] Nasopharyngeal 11/02/2024 1: 59 PM LOCOMOTIVE ENGINEER ELECTRIC 11/02/2024 2:08 PM LOCOMOTIVE ENGINEER ELECTRIC Narrative MARCELINO - 11/02/2024 2:48 PM LOCOMOTIVE ENGINEER ELECTRIC Is the Patient experiencing symptoms consistent with COVID?->Yes Gee Deonrebecca LAB MICROBIOLOGY - GENERAL ORD ERABLES Final Result MARCELINO [address] [facility] Department [place] [address] * XR Chest 1 View (11/02/2024 1:38 PM LOCOMOTIVE ENGINEER ELECTRIC) Anatomical Region Laterality Modality Body, Chest N/A Computed Radiogr aphy 11/02/2024 2:05 PM LOCOMOTIVE ENGINEER ELECTRIC Narrative 11/02/2024 2:06 PM LOCOMOTIVE ENGINEER ELECTRIC EXAM DESCRIPTION: XR CHEST 1 VIEW REASON [...] Layla Ballard D.O. PS: PS Report ID: [id number] Reading Location: [id number] Procedure Note Layla Ballard DO - 11/02/2024 [...] Layla Ballard D.O. PS: PS Report ID: [id number] Reading Location: [place] [address] Gee Yao DO IMG XR PROCEDURES Final Result * ECG 12 lead (11/02/2024 1:19 PM LOCOMOTIVE ENGINEER ELECTRIC) Ventricular Rate EKG/Min 95 BPM [facility] Atrial Rate 95 BPM [facility] [place]-Interval (MSEC) 162 ms [facility] QRS-Interval (MSEC) 98 ms [facility] QT-Interval (MSEC) 432 ms [facility] QTc 542 ms [facility] P [place] 17 degrees [facility] R [place] -19 degrees [facility] T [place] 106 degrees [facility] Diagnosis Normal sinus rhythm Minimal voltage criteria for LVH, may be normal variant 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 ([id number]) on 11/02/2024 5:01:19 PM [facility] [facility] 11/02/2024 1:19 PM LOCOMOTIVE ENGINEER ELECTRIC 11/02/2024 5:01 PM LOCOMOTIVE ENGINEER ELECTRIC Gee Yao DO ECG ORDERABLES Final Result [facility] * (ABNORMAL) Urinalysis reflex to microscopic and culture Urine (11/02/2024 12:51 PM LOCOMOTIVE ENGINEER ELECTRIC) Color, ur Yellow Yellow Comment:Testing performed by : [address] [address] Clarity, ur Clear Clear MARCELINO HAYWOOD Comment:Testing performed by : [address] [address] Specific gravity, ur 1.024 1.003 - 1.030 MARCELINO HAYWOOD Comment:Testing performed by : [address] [address] pH, urine 5.5 MARCELINO Comment: Interpretive Data U rine pH is affected by diet, medications, systemic acid-base disturbances, and renal tubular function. pH may affect urinary stone formation. For example, urine pH below 6.0 may help reduce the tendency for calcium phosphate stones and pH greater than 6.0 may reduce the tendency for uric acid stone formation. Source: [facility] MD On-Line Current Interpretive Data was last revised on 2017 Testing performed by: [facility], [address] [place] [address], [place]., [address] Protein, ur ql 1+(A) Negative MARCELINO Comment:Testing performed by : [address], [place]., [address] Glucose, ur ql Negative Negative MARCELINO Comment:Testing performed by : [address], [place]., [address] Ketones, ur Trace(A) Negative MARCELINO Comment:Testing performed by : [address], [place]., [address] Bilirubin, ur Negative Negative MARCELINO Comment:Testing performed by : [address], [place]., [address] Blood, ur 3+(A) Negative MARCELINO Comment:Testing performed by : [address], [place]., [address] Urobilinogen, ur <2.0 <2.0 mg/dL MARCELINO Comment:Testing performed by : [address] [address] Nitrite, ur Positive(A) Negative MARCELINO Comment:Testing performed by : [address] [address] Leukocyte esterase, ur Negative Negative MARCELINO Comment:Testing performed by : [address], [place]., [address] UA reflex comment Reflex to microscopic UA will be performed. MARCELINO Comment:Testing performed by : [address], [place]., [address] Urine 11/02/2024 12:5 1 PM LOCOMOTIVE ENGINEER ELECTRIC 11/02/2024 12:59 PM LOCOMOTIVE ENGINEER ELECTRIC Gee Yao DO LAB MICROBIOLOGY - GENERAL ORD ERABLES Final Result Performing Organization Address [facility] Co de Phone Number MARCELINO [address] [employer] [place] [address] * (ABNORMAL) Urinalysis, microscopic only (11/02/2024 12:51 PM LOCOMOTIVE ENGINEER ELECTRIC) WBC, ur 0-5 0 - 5 /HPF Comment:Testing performed by : [facility], [address] [place] [address]., [address] RBC, ur 6-10(A) 0 - 2 /HPF MARCELINO Comment:Testing performed by : [address] [address] Epithelial cells, squamous, ur >50(A) 0 - 5 /HPF MARCELINO Comment:Testing performed by : [address], [place]., [address] Bacteria, ur 3+(A) MARCELINO Comment:Testing performed by : [facility], [address] [place] [address], [place]., [address] Mucous, ur Present(A) MARCELINO Comment:Testing performed by : [address] [address] Culture Reflex Comment Reflex conditions for urine culture (WBC >10) not met. MARCELINO Comment:Testing performed by : [address], [place]., [address] Urine 11/02/2024 12:5 1 PM LOCOMOTIVE ENGINEER ELECTRIC 11/02/2024 12:59 PM LOCOMOTIVE ENGINEER ELECTRIC Gee Yao DO LAB URINE ORDERABLES Final Res ult Performing Organization Address City/[facility]/ZIP Co de Phone Number MARCELINO [address] [facility] [place] [address] * Urine culture Urine, bladder (11/02/2024 12:51 PM LOCOMOTIVE ENGINEER ELECTRIC) Report Final Report: Less than 100,000 colonies/mL (clinically insignificant growth based on current clinical standards) Comment:Testing performed by : [facility], [address] [facility] [place] [address] Organism (CLINICALLY INSIGNIFICANT GROWTH [facility] Urine, bladder 11/02/2024 12 :51 PM LOCOMOTIVE ENGINEER ELECTRIC 11/03/2024 4:59 PM LOCOMOTIVE ENGINEER ELECTRIC Narrative [facility] - 11/04/2024 5:58 PM LOCOMOTIVE ENGINEER ELECTRIC Indications for Culture:->Recent positive UA Testing performed by [facility] Microbiology Laboratory ([phone]) Satinder Dougherty MD LAB MICROBIOLOGY - GENE RAL ORDERABLES Final Result Performing Organization Address [facility] de Phone Number [address] [place] [address] * (ABNORMAL) Troponin T high-sensitivity series (baseline, 2hr, 4hr, 6hr) (11/02/2024 12:39 PM LOCOMOTIVE ENGINEER ELECTRIC) Trop T hs 158(H) <=14 ng/L Comment: Interpretive Data For further hscTnT resources including the diagnostic algorithm and an aid in interpretation, copy and paste this link: [email or web address] Current Interpretive Data last revised 2020. Testing performed by: [facility], [address] [place] [address]., [address] Blood 11/02/2024 12:3 9 PM LOCOMOTIVE ENGINEER ELECTRIC 11/02/2024 12:59 PM LOCOMOTIVE ENGINEER ELECTRIC Result [facility] Gee Yao DO LAB BLOOD ORDERABLES Final Res ult Performing Organization Address [facility] Co de Phone Number [place] [id number] [facility] [place] [address] * Troponin T high-sensitivity (11/02/2024 12:39 PM LOCOMOTIVE ENGINEER ELECTRIC) Trop T hs See Comment <=14 ng/L Comment: Improper test ordered. See result for BERNARD Baseline. Interpretive Data For further hscTnT resources including the diagnostic algorithm and an aid in interpretation, copy and paste this link: [email or web address] Current Interpretive Data last revised 2020. Testing performed by: [address] [address] Blood 11/02/2024 12:3 9 PM LOCOMOTIVE ENGINEER ELECTRIC 11/02/2024 12:59 PM LOCOMOTIVE ENGINEER ELECTRIC [employer] DO LAB BLOOD ORDERABLES Edited Re sult - Final Performing Organization Address [facility] Co de Phone Number MARCELINO [address] [place] [address] * (ABNORMAL) Sepsis Lactate w/ Reflex (11/02/2024 12:39 PM LOCOMOTIVE ENGINEER ELECTRIC) Sepsis Lactate 2.1(H) 0.7 - 2.0 mmol/L Comment:Testing performed by : [address] [address] Blood 11/02/2024 12:3 9 PM LOCOMOTIVE ENGINEER ELECTRIC 11/02/2024 12:59 PM LOCOMOTIVE ENGINEER ELECTRIC [employer] DO LAB BLOOD ORDERABLES Final Res ult Performing Organization Address [facility] Co de Phone Number MARCELINO [address] [place] [address] * (ABNORMAL) eGFR (11/02/2024 12:39 PM LOCOMOTIVE ENGINEER ELECTRIC) eGFR 50(L) >=60 mL/min/1. 73 m2 Comment: [...] was last reviewed 2021. Testing performed by: [address] [address] Blood 11/02/2024 12:3 9 PM LOCOMOTIVE ENGINEER ELECTRIC 11/02/2024 12:59 PM LOCOMOTIVE ENGINEER ELECTRIC us Gee Yao DO LAB BLOOD ORDERABLES Final Res ult [place] [id number] [facility] Department [place] [address] * (ABNORMAL) Differential, auto (11/02/2024 12:39 PM LOCOMOTIVE ENGINEER ELECTRIC) Neutrophil abs 6.7(H) 1.5 - 6.5 K/cumm Comment:Testing performed by : [address] [address] Imm gran abs 0.1 0.0 - 0.1 K/cumm MARCELINO Comment:Testing performed by : [address] [address] Lymphocyte abs 2.0 0.8 - 3.3 K/cumm MARCELINO Comment:Testing performed by : [address] [address] Monocyte abs 1.0(H) 0.2 - 0.8 K/cumm MARCELINO Comment:Testing performed by : [address] [address] Eosinophil abs 0.3 0.0 - 0.5 K/cumm MARCELINO Comment:Testing performed by : [address] [address] Basophil abs 0.1 0.0 - 0.1 K/cumm MARCELINO Comment:Testing performed by : [address] [address] Neutrophil pct 66.5 % MARCELINO Comment: Interpretive Data Percent cell count reference ranges are not reported, since discordance with absolute values may lead to misinterpretation of CBC data. Current Interpretive Data was last revised on 2017. Testing performed by: [address] [address] Imm gran pct 0.9 % [facility] Comment: Interpretive Data Percent cell count reference ranges are not reported, since discordance with absolute values may lead to misinterpretation of CBC data. Current Interpretive Data was last revised on 2017. Testing performed by: [address] [address] Lymphocyte pct 19.7 % [facility] Comment: Interpretive Data Percent cell count reference ranges are not reported, since discordance with absolute values may lead to misinterpretation of CBC data. Current Interpretive Data was last revised on 2017. Testing performed by: [address] [address] Monocyte pct 9.5 % [facility] Comment: Interpretive Data Percent cell count reference ranges are not reported, since discordance with absolute values may lead to misinterpretation of CBC data. Current Interpretive Data was last revised on 2017. Testing performed by: [address] [address] Eosinophil pct 2.9 % [facility] Comment: Interpretive Data Percent cell count reference ranges are not reported, since discordance with absolute values may lead to misinterpretation of CBC data. Current Interpretive Data was last revised on 2017. Testing performed by: [address] [address] Basophil pct 0.5 % [facility] Comment: Interpretive Data Percent cell count reference ranges are not reported, since discordance with absolute values may lead to misinterpretation of CBC data. Current Interpretive Data was last revised on 2017. Testing performed by: [address] [address] Blood 11/02/2024 12:3 9 PM LOCOMOTIVE ENGINEER ELECTRIC 11/02/2024 12:59 PM LOCOMOTIVE ENGINEER ELECTRIC us Gee Yao DO LAB BLOOD ORDERABLES Final Res ult MARCELINO [address] Department [place] [address] * (ABNORMAL) CBC with auto differential (11/02/2024 12:39 PM LOCOMOTIVE ENGINEER ELECTRIC) [facility] WBC 10.1(H) 3.8 - 9.9 K/cumm Comment:Testing performed by : [address] [address] Hgb 12.9 11.9 - 15.5 g/dL MARCELINO Comment:Testing performed by : [address], [address] Hct 42.9 35.6 - 45.5 % MARCELINO Comment:Testing performed by : [address], [address] Plt 437(H) 150 - 400 K/cumm MARCELINO Comment:Testing performed by : [address], [address] MPV 10.1 9.1 - 12.3 fL MARCELINO Comment:Testing performed by : [address], [address] RBC 4.87 3.90 - 5.20 M/cumm MARCELINO Comment:Testing performed by : [address], [address] MCV 88.1 81.3 - 96.4 fL MARCELINO Comment:Testing performed by : [address] [address] MCH 26.5(L) 27.1 - 33.3 pg MARCELINO Comment:Testing performed by : [address], [address] MCHC 30.1(L) 32.3 - 35.7 g/dL MARCELINO Comment:Testing performed by : [address], [address] RDW CV 17.3(H) 11.1 - 14.9 % MARCELINO Comment:Testing performed by : [address], [address] RDW SD 56.2(H) 35.7 - 48.1 fL MARCELINO Comment:Testing performed by : [address] [address] NRBC abs 0.00 0.00 - 0.01 K/cumm MARCELINO Comment:Testing performed by : [address] [address] Blood 11/02/2024 12:3 9 PM LOCOMOTIVE ENGINEER ELECTRIC 11/02/2024 12:59 PM LOCOMOTIVE ENGINEER ELECTRIC MEDSEEK LAB BLOOD ORDERABLES Final Res ult Performing Organization Address [facility]/ZIP Co de Phone Number ORLIN[address] [address] * Erythrocyte sedimentation rate (11/02/2024 12:39 PM LOCOMOTIVE ENGINEER ELECTRIC) Pathologist [facility] Erythrocyte sedimentation rate 30 1 - 30 mm/hr Comment:Testing performed by : [address] [address] Blood 11/02/2024 12:3 9 PM LOCOMOTIVE ENGINEER ELECTRIC 11/02/2024 12:59 PM LOCOMOTIVE ENGINEER ELECTRIC MEDSEEK LAB BLOOD ORDERABLES Final Res ult Performing Organization Address [facility] Co de Phone Number [address] [address] * (ABNORMAL) CRP (acute phase) (11/02/2024 12:39 PM LOCOMOTIVE ENGINEER ELECTRIC) Pathologist [facility] CRP 19.6(H) <=10.0 mg/L Comment:Testing performed by : [address] [address] Blood 11/02/2024 12:3 9 PM LOCOMOTIVE ENGINEER ELECTRIC 11/02/2024 12:59 PM LOCOMOTIVE ENGINEER ELECTRIC MEDSEEK LAB BLOOD ORDERABLES Final Res ult Performing Organization Address [facility] Co de Phone Number [address] [address] * (ABNORMAL) Comprehensive metabolic panel (11/02/2024 12:39 PM LOCOMOTIVE ENGINEER ELECTRIC) Sodium 141 135 - 145 mmol/L Comment:Testing performed by : [address] [address] Potassium, pl 3.4 3.3 - 4.9 mmol/L MARCELINO Comment:Testing performed by : [address], [place]., [address] Chloride 99 97 - 110 mmol/L [facility] Comment:Testing performed by : [address], [place]., [address] CO2 30 22 - 32 mmol/L [facility] Comment:Testing performed by : [address], [place]., [address] Anion gap 12 2 - 15 mmol/L [facility] Comment:Testing performed by : [address], [place]., [address] BUN 18 6 - 25 mg/dL [facility] Comment:Testing performed by : [address], [place]., [address] Creatinine 1.10 0.60 - 1.10 mg/dL [facility] Comment:Testing performed by : [address] [address] Glucose 157 70 - 199 mg/dL [facility] Comment: Interpretive Data Fasting glucose [...] was last revised 2022. Testing performed by: [address] [address] Calcium 10.6(H) 8.5 - 10.3 mg/dL [facility] Comment:Testing performed by : [address] [address] Bilirubin, total 0.3 0.1 - 1.2 mg/dL MARCELINO Comment:Testing performed by : [address] [address] Protein, pl 6.7 6.5 - 8.5 g/dL MARCELINO Comment:Testing performed by : [address] [address] Albumin 3.7 3.5 - 5.0 g/dL MARCELINO Comment:Testing performed by : [address] [address] Alk phos 107 40 - 130 Units/L MARCELINO Comment:Testing performed by : [address] [address] ALT 15 7 - 45 Units/L MARCELINO Comment:Testing performed by : [address] [address] AST 26 10 - 45 Units/L MARCELINO Comment:Testing performed by : [address] [address] Blood 11/02/2024 12:3 9 PM LOCOMOTIVE ENGINEER ELECTRIC 11/02/2024 12:59 PM LOCOMOTIVE ENGINEER ELECTRIC Gee Yao DO LAB BLOOD ORDERABLES Final Res ult MARCELINO [address] [facility] Department [place] [address] * (ABNORMAL) Hemoglobin A1c (09/28/2024 12:13 PM LOCOMOTIVE ENGINEER ELECTRIC) Hgb A1C 7.7(H) 4.0 - 5.6 % Estimated Average Glucose 174 mg/dL MARCELINO Comment: The ADA recommends reporting an estimated Average Glucose (eAG) with all Hemoglobin A1c results using the equation derived from a study of 507 normal and diabetic adults. Minority populations were underrepresented and children were not included. (Diabetes Care 31:5428-9295, 2008). The eAG is not equivalent to a fasting glucose. Blood 09/28/2024 12:1 3 PM LOCOMOTIVE ENGINEER ELECTRIC 09/28/2024 12:16 PM LOCOMOTIVE ENGINEER ELECTRIC us Mackenzie Carey [employer] LAB BLOOD ORDERABLES Final R esult Performing Organization Address [facility] Co de Phone Number MARCELINO [address] [facility] [place] [address] * (ABNORMAL) Albumin Creatinine Ratio, Urine (11/01/2023 9:30 AM LOCOMOTIVE ENGINEER ELECTRIC) Albumin Ur 50.5 mg/L MARCELINO Comment: Interpretive Data No reference range established. Current interpretive data was last revised 2019. Testing performed by: [address] [address] Creatinine Ur 101.6 mg/dL MARCELINO Comment: Interpretive Data No reference range established. Current interpretive data was last revised 2019. Testing performed by: [address] [address] Albumin Creatinine Ratio, Ur 50(H) 1 - 29 mg/g MARCELINO Comment:Testing performed by : [address] [address] Urine 11/01/2023 9:30 AM LOCOMOTIVE ENGINEER ELECTRIC 11/01/2023 12:14 PM LOCOMOTIVE ENGINEER ELECTRIC Donn Bonilla DO LAB URINE ORDERABLES Fin al Result Performing Organization Address [facility] de Phone Number MARCELINO [address] [facility] [place] [address] * Dexa Axial Skeleton Bone Density 1 or 2 Site (02/29/2020 9:31 AM CDT) Anatomical Region Laterality Modality Body N/A Radiographic Rosa Isela ging 03/01/2020 10:5 7 AM CDT Narrative 03/01/2020 11:00 AM CDT Patient Name: SHARI KAISER Ordering Dr: Donn Bonilla DO, D.O.B: 1940 Exam Date: 02/29/20930 Age: 79 Sex: Female MR#: [id number] Loc: RADIOLOGY REPORT Order #[id number] Bone Density Bone Density Hip/Spine (STD) Signed EXAM DESCRIPTION: Bone Density Hip/Spine (STD) REASON FOR STUDY: 79 year old female with given history of osteoarthritis. 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 MD: Report ID: [id number] Reading Location: [place] [address] REPORT ELECTRONICALLY SIGNED IN OTHER VENDOR SYSTEM Resulting Agency Comment O Procedure Note Alonzo Canchola MD - 03/01/2020 Patient Name: SHARI KAISER Dr: Donn BonillaO.B: 1940 Exam Date: 02/29/20930 Age: 79 Sex: Female MR#: [id number] Loc: RADIOLOGY REPORT Order #[id number] Bone Density Bone Density Hip/Spine (STD) Signed EXAM DESCRIPTION: Bone Density Hip/Spine (STD) REASON FOR STUDY: 79 year old female with given history ofosteoarthritis. Casing Runner/Model: [employer] A (S/N [id number]) CLINICAL INFORMATION: Current height: 65.5 inches Weight: [...] by Alonzo Canchola M.D. 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 (gown and gloves) - not eligible for IP review until 6 months after positive culture - Colin HAM, RN 11/15/24 11/04/2024 11/04/2024 Insurance [facility] AET MEDICARE [address] [place] [id number] [facility] AETNA [facility] Advance Directives For more information, please contact: [phone] Documents on File Type Date Recorded Patient Energy Efficiency Engineer Expl anation ADVANCE DIRECTIVE 11/14/2024 DNR ADVANCE DIRECTIVE 10/03/2024 3:26 PM Power of Spiritual Advisor-Medical * DNR (Latest Code Status on File) [...] 12:00 PM 10/08/2024 7:19 PM Care Teams Power Sweeper Operator Relationship Specialty Start Date End Date Donn Bonilla DO [address] [place] [address] [phone] PCP - General Family Medicine 07/05/19 Juan Herrera MD [address] [place] [address] [phone] Story Writer Cardiovascular Disease 11/14/20 Mona Islas NP [address] [place] [address] [phone] Nurse Practitioner 05/27/23
--- OUTSIDE RECORDS SUMMARY | 2025-01-26 07:29 | XMS_ITS | Referral Summary ---
Author Organization [facility] Address [address] [place] [address] Care Team Providers Care District Sales Manager Name Role Phone Donn Bonilla DO Primary Care Provider + Juan Herrera MD Unavailable Mona Islas NP Unavailable [phone] Encounters Date Type Department Care Team Description 01/17/2025 Plan of Care Documentation [address] [place] [address] 01/17/2025 11:00 AM CDT Home Care Visit [address] [place] [address] Sharon Avila, RN SN HOSPICE DISCHARGE 01/17/2025 11:00 AM CDT Home Care Visit [address] [place] [address] Kaushik Smith CNA AIDE HOME VISIT 01/15/2025 10:00 AM CDT Home Care Visit [address] [place] [address] Sharon Avila, RN SN HOSPICE VISIT 01/11/2025 3:00 AM CDT Home Care Visit [facility] - [address] [place] [address] Sharon Avila, RN SN HOSPICE VISIT 01/10/2025 2:30 PM CDT Home Care Visit [address] [place] [address] Luis Luna M.A. PRINTER OPERATOR HOSPICE VISIT 01/10/2025 10:15 AM CDT Home Care Visit [address] [place] [address] Qi May CNA AIDE HOME VISIT 01/08/2025 10:00 AM CDT Home Care Visit [address] [place] [address] Sharon Avila, RN SN HOSPICE VISIT 01/04/2025 9:30 AM CDT Home Care Visit [address] [place] [address] Sharon Avila, RN SN HOSPICE VISIT 01/03/2025 Plan of Care Documentation [address] [place] [address] 01/03/2025 1:00 PM CDT Home Care Visit [address] [place] [address] Cara Hsu MSW [facility] HOSPICE VISIT 01/03/2025 10:00 AM CDT Home Care Visit [address] [place] [address] Kaushik Smith CNA AIDJessica HOME VISIT 01/01/2025 10:30 AM CDT Home Care Visit [address] [place] [address] Sharon Avila, RN SN HOSPICE VISIT 12/28/2024 10:30 AM CDT Home Care Visit [address] [place] [address] Sharon Avila, JU SN HOSPICE VISIT 12/27/2024 12:00 PM CDT Home Care Visit [facility] [address] [facility] [place] [address] Kaushik Smith CNA AIDJessica HOME VISIT 12/26/2024 Home Care Visit [facility] [address] [facility] [address] [address] [place] [address] Neeta Gagn[facility] 12/26/2024 9:15 AM CDT Home Care Visit [facility] [address] [facility] [address] [place] [address] Neeta Gagnon JUNIOR JAVA DEVELOPER [facility] HOSPICE VISIT 12/25/2024 12:30 PM CDT Home Care Visit [facility] [address] [facility] [address] [address] [place] [address] Sharon Avila RN SN HOSPICE VISIT 12/22/2024 Home Care Visit [facility] [address] [facility] [address] [place] [address] Neeta Gagnon JUNIOR JAVA DEVELOPER [facility] HOSPICE PHONE CALL 12/22/2024 Home Care Visit [facility] [address] [facility] [address] [address] [place] [address] Neeta Gagnon JUNIOR JAVA DEVELOPER [facility] H[facility]ICE PHONE CALL 12/21/2024 Orders Only [facility] Health Information Management [address] [place] [id number] Scanning, Provider 12/21/2024 Home Care Visit [facility] [address] [facility] [address] [address] [place] [address] Mona Macario, JU CASE COMMUNICATION 12/21/2024 Home Care Visit [facility] [address] [facility] [address] [place] [address] Cathy Bolden RN SN TRIAGE ENCOUNTER 12/21/2024 Home Care Visit [facility] [address] [facility] [address] [place] [address] Neeta Gagnon, JUNIOR JAVA DEVELOPER JUNIOR JAVA DEVELOPER HOSPICE PHONE CALL 12/21/2024 Home Care Visit [facility] [address] [facility] [address] [place] [address] Sharon Avila, RN CASE COMMUNICATION 12/21/2024 Home Care Visit [facility] [address] [facility] [address] [place] [address] Emilie Blair, JU SN TRIAGE ENCOUNTER 12/21/2024 Home Care Visit [facility] [address] [place] [address] [address] [place] [address] Emilie Blair, JU SN TRIAGE ENCOUNTER 12/21/2024 Home Care Visit [facility] [address] [facility] [address] [place] [address] Cathy Bolden RN SN TRIAGE ENCOUNTER 12/21/2024 9:00 AM CDT Home Care Visit [facility] [address] [place] [address] [address] [place] [address] Sharon Avila, RN SN HOSPICE VISIT 12/20/2024 Plan of Care Documentation [facility] [address] [facility] [address] [place] [address] 12/18/2024 2:00 PM CDT Home Care Visit [facility] [address] [place] [address] [address] [place] [address] Sharon Avila, RN SN HOSPICE VISIT 12/16/2024 Home Care Visit [address] [place] [address] Leeanne Avila, RN SN TRIAGE ENCOUNTER 12/14/2024 10:00 AM CDT Home Care Visit [address] [place] [address] Sharon Avila, RN SN HOSPICE VISIT 12/13/2024 2:00 PM CDT Home Care Visit [address] [place] [address] Luis Luna M.A. PRINTER OPERATOR HOSPICE VISIT 12/13/2024 12:00 PM CDT Home Care Visit [address] [place] [address] Neeta Gagnon MSW JUNIOR JAVA DEVELOPER HOSPICE VISIT 12/13/2024 11:00 AM CDT Home Care Visit [address] [place] [address] Kaushik Smith, SPOT FACER AIDE HOME VISIT 12/12/2024 Home Care Visit [address] [place] [address] Dania Shelton RN SN TRIAGE ENCOUNTER 12/11/2024 12:00 PM CDT Home Care Visit [address] [place] [address] Sharon Avila, JU SN HOSPICE VISIT 12/09/2024 Home Care Visit [address] [place] [address] Norris Goldstein, RN SN TRIAGE ENCOUNTER 12/07/2024 Home Care Visit [address] [place] [address] Sharon Avila, RN CASE COMMUNICATION 12/07/2024 9:30 AM CDT Home Care Visit [address] [place] [address] Sharon Avila, RN SN HOSPICE VISIT 12/06/2024 Plan of Care Documentation [address] [place] [address] 12/06/2024 11:00 AM CDT Home Care Visit [address] [place] [address] Kaushik Smith, SPOT FACER AIDE HOME VISIT 12/04/2024 12:30 PM CDT Home Care Visit [address] [place] [address] Sharon Avila, RN SN HOSPICE VISIT 12/01/2024 12:00 PM CDT Home Care Visit [address] [place] [address] Kaushik Smith, SPOT FACER AIDE HOME VISIT 11/30/2024 1:00 PM CDT Home Care Visit [address] [place] [address] Sharon Avila, RN SN HOSPICE VISIT 11/27/2024 11:00 AM CDT Home Care Visit [address] [place] [address] Siri Goodrich RN SN HOSPICE VISIT 11/24/2024 10:00 AM CDT Home Care Visit [address] [place] [address] Kaushik Smith, SPOT FACER AIDE HOME VISIT 11/23/2024 11:55 AM CDT Home Care Visit [address] [place] [address] Sharon Avila, RN SN HOSPICE VISIT 11/22/2024 Home Care Visit [address] [place] [address] Sharon Avila, RN CASE COMMUNICATION 11/22/2024 Home Care Visit [address] [place] [address] Emilie Blair, JU SN TRIAGE ENCOUNTER 11/22/2024 11:00 AM CDT Home Care Visit [address] [place] [address] Neeta Gagnon MSW JUNIOR JAVA DEVELOPER HOSPICE VISIT 11/22/2024 Plan of Care Documentation [address] [place] [address] 11/22/2024 Home Care Visit [address] [place] [address] Sharon Avila, RN CASE COMMUNICATION 11/22/2024 12:30 PM CDT Home Care Visit [address] [place] [address] Naomie Darby, JU SN HOSPICE VISIT 11/22/2024 Home Care Visit [address] [place] [address] Sharon Avila, RN CASE COMMUNICATION 11/22/2024 Home Care Visit [address] [place] [address] Emilie Blair, RN SN TRIAGE ENCOUNTER 11/22/2024 Home Care Visit [address] [place] [address] Cathy Bolden RN SN TRIAGE ENCOUNTER 11/20/2024 10:30 AM CDT Home Care Visit [address] [place] [address] Sharon Avila, RN SN HOSPICE VISIT 11/19/2024 Home Care Visit [address] [place] [address] Bandar Angeles RN SN TRIAGE ENCOUNTER 11/17/2024 11:00 AM CDT Home Care Visit [address] [place] [address] Siri Goodrich, RN SN HOSPICE VISIT 11/16/2024 Home Care Visit [address] [place] [address] Miranda Garcia, RN SN TRIAGE ENCOUNTER 11/16/2024 6:00 PM CDT Home Care Visit [address] [place] [address] Elfego Alvarez, JU SN HOSPICE VISIT 11/16/2024 Home Care Visit [address] [place] [address] Miranda Garcia RN SN TRIAGE ENCOUNTER 11/16/2024 Home Care Visit [address] [place] [address] Cathy Bolden RN SN TRIAGE ENCOUNTER 11/16/2024 2:30 PM CDT Home Care Visit [address] [place] [address] Luis Luna M.A. [facility]LY [facility] HOSPICE ASSESSMENT 11/15/2024 Home Care Visit [address] [place] [address] Neeta Gagnon [facility] HOSPICE PHONE CALL 11/15/2024 Home Care Visit [address] [place] [address] Anh Park, UJ SN TRIAGE ENCOUNTER 11/15/2024 Orders Only [facility] [address] [place] [address] Daniel Rodriguez MD 11/15/2024 11:30 AM CDT Home Care Visit [address] [place] [address] Siri Goodrich RN SN HOSPICE VISIT 11/15/2024 11:15 AM CDT Home Care Visit [address] [place] [address] Neeta Gagnon [facility] HOSPICE ASSESSMENT 11/14/2024 Plan of Care Documentation [address] [place] [address] 11/14/2024 12:30 PM CDT Home Care Visit [facility] [place] [address] [facility] [address] [place] [address] Divya Whittaker, JU SN HOSPICE COMPREHENSIVE ASSESSMENT 11/02/2024 12:26 PM RETAIL ANALYTICS MANAGER - 11/14/2024 2:18 PM CDT Hospital Encounter [facility] [address] [place] [address] Gee Yao DO Smith, MD Audrey Santos, MD Julio Nicholson, Nahid Griggs MD Altered mental status, unspecified altered mental status type (Primary Dx); Elevated troponin I level; Severe dementia, unspecified dementia type, unspecified whether behavioral, psychotic, or mood disturbance or anxiety (HCC) Discharge Disposition: Discharge to a termite exterminator helper care hospital 11/01/2024 Telephone [facility] Medical [facility] Primary Care [address] [facility] [address] [place] [phone] Donn Bonilla DO Medical Question/Miscellaneo us 10/30/2024 Telephone [facility] Primary Care [address] [facility] [address] [place] [phone] Donn Bonilla DO TRAM Questions from Last 3 Months Allergies Active Allergy [...] 09/24/2020 Assessment & Plan (09/24/2020 7:33 PM RETAIL ANALYTICS MANAGER): Advised to get labs now, ordered STAT CBC, CMP, and lipase. Instructed to go to ER overnight for worsening symptoms. Recommended calling tomorrow to schedule follow-up with PCP. Subconjunctival hemorrhage of right eye 09/24/19 Assessment & Plan (09/24/2020 7:32 PM RETAIL ANALYTICS MANAGER): Advised not to stop Xarelto without consulting with PCP and instructed to keep upcoming appointment with curtain stretcher assembler. 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 Pelvic fracture 01/15/2020 Recurrent falls while walking 01/15/2020 Restless leg syndrome 01/15/2020 Dupuytren contracture 01/15/2020 Chronic kidney disease (CKD), stage III (moderat e) 07/05/2019 Lumbar spinal stenosis 07/05/2019 OAB (overactive bladder) 07/05/2019 Liver mass 06/21/2018 Hernia, inguinal, unilateral 06/09/2018 KIMBERLY (acute kidney injury) ([facility]) 05/20/2018 Assessment & Plan (02/02/2022 2:53 PM CDT): - resolved Chronic deep vein thrombosis (DVT) of proximal vein of lower extremity ([facility]) 05/20/2018 Weakness 05/19/2018 DM2 (diabetes mellitus, type [...] reglan Assessment & Plan (09/24/2020 7:31 PM RETAIL ANALYTICS MANAGER): Chronic, stable, controlled with medication-continued on BID Pepcid, advised follow-up with PCP to discuss EGD. Hiatal hernia 04/11/2018 Depression 04/11/2018 History of deep venous throm bosis (DVT) of distal vein of right lower extremity 04/11/2018 Primary osteoarthritis of left knee 02/11/2018 Overview (02/11/2018): Added automatically from request for surgery [id number] History of esophageal stricture 10/25/2017 Neuropathy 07/21/2017 Low iron 06/24/2016 Dysphagia 01/24/2015 Assessment & Plan (09/24/2020 7:32 PM RETAIL ANALYTICS MANAGER): Chronic, worsening, with history of esophageal strictures, [...] 10/21/2022 Assessment & Plan (09/24/2020 7:33 PM RETAIL ANALYTICS MANAGER): Advised to get labs now, ordered STAT [...] drink = 0.6 oz pur e alcohol) [employer] Answer Date Recorded In the past 12 months has [employer], oil, or water [employer] threatened to shut off services in your [...] week 11/03/2024 How often do you attend [facility] or jewish services? Never 11/03/2024 Do you belong to any clubs o r organizations such as yarsanism groups, unions, fraternal or athletic groups, or [...] any time in the past 12 m [facility], were you homeless or living in a fdc (including now)? No 11/03/2024 Personal Safety Answer Date Recorded Have you ever been in or are you currently in a harmful physical or emotional relationship or is someone making you feel afraid or unsafe? Patient unable to answer 11/02/2024 Comments No Sex and Gender Information Value Date Recorded Sex Assigned at Not on file Legal Sex Female 7:06 PM RETAIL ANALYTICS MANAGER Gender Identity Not on file Sexual Orientation [...] on file Medical Devices Implanted Type Area Application Chemist Device Identifier Shelf Expiration Date Model / Serial / Lot [employer] 3122-040 Smartset Medium Viscosity Cement 40gm Bone Sterile - [id number] Implanted:Qty: 1 on 04/12/2018 by Adrian Powell MD at [facility] [employer] [id number] 07/29/2019 3122-040 / / [employer] 3122-040 Smartset Medium Viscosity Cement 40gm Bone Sterile - [id number] Implanted:Qty: 1 on 04/12/2018 by Adrian Powell MD at [facility] [employer] [id number] 06/29/2019 3122-040 / / [employer] [id number] Attune 5mm Cruciate Retaining Fix Bearing Knee 5 Insert Tibial - [id number] Implanted:Qty: 1 on 04/12/2018 by Adrian Powell MD at [facility] [employer] [id number] 12/27/2022 [id number] / / [employer] [id number] Attune Cemented Cruciate Retaining Knee Left 5 Narrow Component - [id number] Implanted:Qty: 1 on 04/12/2018 by Adrian Powell MD at [facility] [facility] [id number] 12/28/2027 [id number] / / [employer] [id number] Attune S+ Cement Fix Bearing Knee 5 Baseplate Tibial - [id number] Implanted:Qty: 1 on 04/12/2018 by Adrian Powell MD at [facility] [employer] [facility] [id number] 09/29/2027 [id number] / / Procedures Procedure Name Priority Date/Time [...] GLUCOSE DEVICE Routine 11/05/2024 1 :22 AM RETAIL ANALYTICS MANAGER POCT GLUCOSE DEVICE Routine 11/04/2024 1 0:34 PM RETAIL ANALYTICS MANAGER URINALYSIS, MICROSCOPIC ONLY Routine 11/04/2024 6:17 PM RETAIL ANALYTICS MANAGER URINE CULTURE Routine 11/04/2024 6:17 PM RETAIL ANALYTICS MANAGER URINALYSIS AND REFLEX TO MICROSCOPIC AND CULTURE Routine 11/04/2024 6:17 PM RETAIL ANALYTICS MANAGER POCT GLUCOSE DEVICE Routine 11/04/2024 5 :07 PM RETAIL ANALYTICS MANAGER APTT Routine 11/04/2024 2:21 PM RETAIL ANALYTICS MANAGER DIFFERENTIAL AUTO Routine 11/04/2024 8:5 4 AM RETAIL ANALYTICS MANAGER APTT Timed 11/04/2024 8:54 AM RETAIL ANALYTICS MANAGER CBC WITH AUTO DIFFERENTIAL Routine 11/04/2024 8:54 AM RETAIL ANALYTICS MANAGER POCT GLUCOSE DEVICE Routine 11/04/2024 8 :47 AM RETAIL ANALYTICS MANAGER POCT GLUCOSE DEVICE Routine 11/04/2024 3 :35 AM RETAIL ANALYTICS MANAGER APTT Timed 11/04/2024 12:10 AM RETAIL ANALYTICS MANAGER POCT GLUCOSE DEVICE Routine 11/03/2024 1 1:02 PM RETAIL ANALYTICS MANAGER POCT GLUCOSE DEVICE Routine 11/03/2024 7 :11 PM RETAIL ANALYTICS MANAGER APTT Timed 11/03/2024 4:26 PM RETAIL ANALYTICS MANAGER POCT GLUCOSE DEVICE Routine 11/03/2024 4 :01 PM RETAIL ANALYTICS MANAGER POCT GLUCOSE DEVICE Routine 11/03/2024 1 1:57 AM RETAIL ANALYTICS MANAGER TRANSTHORACIC ECHO (TTE) LIMITED/FOLLOW UP WO DOPPLER/CF W CONTRAST Routine 11/03/2024 11:55 AM RETAIL ANALYTICS MANAGER APTT Timed 11/03/2024 9:36 AM RETAIL ANALYTICS MANAGER POCT GLUCOSE DEVICE Routine 11/03/2024 8:00 AM RETAIL ANALYTICS MANAGER POCT GLUCOSE DEVICE Routine 11/03/2024 4 :09 AM RETAIL ANALYTICS MANAGER DIFFERENTIAL AUTO Routine 11/03/2024 2:2 1 AM RETAIL ANALYTICS MANAGER APTT Timed 11/03/2024 2:21 AM RETAIL ANALYTICS MANAGER CBC WITH AUTO DIFFERENTIAL Routine 11/03/2024 2:21 AM RETAIL ANALYTICS MANAGER LIPID PANEL Routine 11/03/2024 2:21 AM RETAIL ANALYTICS MANAGER POCT GLUCOSE DEVICE Routine 11/03/2024 1 2:21 AM RETAIL ANALYTICS MANAGER POCT GLUCOSE DEVICE Routine 11/02/2024 8 :[address] CHEST ABDOMEN PELVIS W CONTRAST IP Routine 11/02/2024 8:01 PM RETAIL ANALYTICS MANAGER TROPONIN T HIGH-SENSITIVITY 6-HOUR Timed 11/02/2024 7:24 PM RETAIL ANALYTICS MANAGER POCT GLUCOSE DEVICE Routine 11/02/2024 6 :48 PM RETAIL ANALYTICS MANAGER MAGNESIUM Add-On 11/02/2024 5:54 PM RETAIL ANALYTICS MANAGER APTT STAT 11/02/2024 5:54 PM RETAIL ANALYTICS MANAGER CBC WITHOUT DIFFERENTIAL STAT 11/02/2024 5:54 PM RETAIL ANALYTICS MANAGER PROTIME-INR STAT 11/02/2024 5:54 PM RETAIL ANALYTICS MANAGER BLOOD CULTURE STAT 11/02/2024 5:54 PM RETAIL ANALYTICS MANAGER BLOOD CULTURE STAT 11/02/2024 5:54 PM RETAIL ANALYTICS MANAGER TROPONIN T HIGH-SENSITIVITY 4-HR Timed 11/02/2024 4:15 PM RETAIL ANALYTICS MANAGER SEPSIS LACTATE WITH REFLEX Timed 11/02/2024 3:15 PM RETAIL ANALYTICS MANAGER TROPONIN T HIGH-SENSITIVITY 2-HOUR Timed 11/02/2024 3:02 [address]TICS MANAGER CT HEAD WO CONTRAST ED 11/02/2024 2 :16 PM RETAIL ANALYTICS MANAGER INFLUENZA A/B, RSV, AND COVID-19 PCR STAT 11/02/2024 1:59 PM RETAIL ANALYTICS MANAGER XR CHEST 1 VIEW ED Urgent/IP Urgent 11/02/2024 1:38 PM RETAIL ANALYTICS MANAGER ECG 12-LEAD STAT 11/02/2024 1:19 PM RETAIL ANALYTICS MANAGER URINALYSIS, MICROSCOPIC ONLY STAT 11/02/2024 12:51 PM RETAIL ANALYTICS MANAGER URINE CULTURE Add-On 11/02/2024 12:51 PM RETAIL ANALYTICS MANAGER URINALYSIS AND REFLEX TO MICROSCOPIC AND CULTURE STAT 11/02/2024 12:51 PM RETAIL ANALYTICS MANAGER CRP (ACUTE PHASE) STAT 11/02/2024 12: 39 PM RETAIL ANALYTICS MANAGER ERYTHROCYTE SEDIMENTATION RATE STAT 11/02/2024 12:39 PM RETAIL ANALYTICS MANAGER TROPONIN T HIGH-SENSITIVITY SERIES (BASELINE, 2HR, 4HR, 6HR) STAT 11/02/2024 12:39 PM RETAIL ANALYTICS MANAGER TROPONIN T HIGH-SENSITIVITY STAT 11/02/2024 12:39 PM RETAIL ANALYTICS MANAGER EGFR STAT 11/02/2024 12:39 PM RETAIL ANALYTICS MANAGER DIFFERENTIAL AUTO STAT 11/02/2024 12: 39 PM RETAIL ANALYTICS MANAGER SEPSIS LACTATE WITH REFLEX STAT 11/02/2024 12:39 PM RETAIL ANALYTICS MANAGER COMPREHENSIVE METABOLIC PANEL STAT 11/02/2024 12:39 PM RETAIL ANALYTICS MANAGER CBC WITH AUTO DIFFERENTIAL STAT 11/02/2024 12:39 PM RETAIL ANALYTICS MANAGER HEMOGLOBIN A1C STAT 09/28/2024 12:13 PM RETAIL ANALYTICS MANAGER ALBUMIN CREATININE RATIO, URINE Routine 11/01/2023 9:30 AM RETAIL ANALYTICS MANAGER Medicare annual wellness visit, subsequent Neuropathy Fibromyalgia [...] * POCT glucose (11/14/2024 9:05 AM CDT) Glucose, POC 152 70 - 199 mg/dL Comment:Testing performed by : [address] [id number] Glucose comment 1 Use This Result MARCELINO HAYWOOD Comment:Testing performed by : [address] [id number] Glucose comment 2 RN/MD Notified MARCELINO HAYWOOD Comment:Testing performed by : [address] [id number] Blood 11/14/2024 9:05 AM CDT 11/14/2024 9:05 AM CDT us Nahid Kim MD LAB POCT ORDERABLES - DEV ICE Final Result [facility] [address] [facility] Department [place] [address] * POCT glucose (11/13/2024 8:13 PM CDT) Glucose, POC 184 70 - 199 mg/dL Comment:Testing performed by : [address] [id number] Blood 11/13/2024 8:13 PM CDT 11/13/2024 8:13 PM CDT Conor Ventura MD LAB POCT ORDERABLE S - DEVICE Final Result Performing Organization Address [facility] de Phone Number MARCELINO [address] [facility] [place] [address] * POCT glucose (11/13/2024 7:49 AM CDT) Glucose, POC 139 70 - 199 mg/dL Comment:Testing performed by : [address] [id number] Glucose comment 1 Use This Result MARCELINO Comment:Testing performed by : [address] [id number] Glucose comment 2 RN/MD Notified MARCELINO Comment:Testing performed by : [address] [id number] Blood 11/13/2024 7:49 AM CDT 11/13/2024 7:49 AM CDT Conor Ventura MD LAB POCT ORDERABLE S - DEVICE Final Result Performing Organization Address [facility] Co de Phone Number MARCELINO [address] [facility] [place] [address] * POCT glucose (11/13/2024 4:21 AM CDT) Glucose, POC 131 70 - 199 mg/dL Comment:Testing performed by : [address] [id number] Glucose comment 1 Use This Result MARCELINO Comment:Testing performed by : [address] [id number] Blood 11/13/2024 4:21 AM CDT 11/13/2024 4:21 AM CDT Conor Ventura MD LAB POCT ORDERABLE S - DEVICE Final Result [address] [address] * POCT glucose (11/13/2024 12:22 AM CDT) Glucose, POC 174 70 - 199 mg/dL Comment:Testing performed by : [address] [id number] Glucose comment 1 Use This Result [facility] Comment:Testing performed by : [address] [id number] Blood 11/13/2024 12:2 2 AM CDT 11/13/2024 12:22 AM CDT Conor Ventura MD LAB POCT ORDERABLE S - DEVICE Final Result Performing Organization Address [facility] Co de Phone Number [address] [place] [address] * POCT glucose (11/12/2024 8:50 PM CDT) Glucose, POC 167 70 - 199 mg/dL Comment:Testing performed by : [address] [address] Blood 11/12/2024 8:50 PM CDT 11/12/2024 8:50 PM CDT Conor Ventura MD LAB POCT ORDERABLE S - DEVICE Final Result Performing Organization Address City/[facility]/ZIP Co de Phone Number [address] [address] * POCT glucose (11/12/2024 5:43 PM CDT) Glucose, POC 157 70 - 199 mg/dL Comment:Testing performed by : [address] [id number] Glucose comment 1 Use This Result MARCELINO Comment:Testing performed by : [address] [address] Glucose comment 2 RN/MD Notified MARCELINO Comment:Testing performed by : [address] [id number] Blood 11/12/2024 5:43 PM CDT 11/12/2024 5:43 PM CDT Conor Ventura MD LAB POCT ORDERABLE S - DEVICE Final Result Performing Organization Address [facility] Co de Phone Number MARCELINO [facility] [place] [address] * POCT glucose (11/12/2024 11:50 AM CDT) Glucose, POC 175 70 - 199 mg/dL Comment:Testing performed by : [address] [address] [address] Glucose comment 1 Use This Result MARCELINO Comment:Testing performed by : [address] [address] Glucose comment 2 RN/MD Notified MARCELINO Comment:Testing performed by : [address] [address] Blood 11/12/2024 11:5 0 AM CDT 11/12/2024 11:50 AM CDT Conor Ventura MD LAB POCT ORDERABLE S - DEVICE Final Result Performing Organization Address [facility] Co de Phone Number MARCELINO [address] [facility] [place] [address] * POCT glucose (11/12/2024 8:11 AM CDT) Glucose, POC 120 70 - 199 mg/dL Comment:Testing performed by : [address] [address] Glucose comment 1 Use This Result MARCELINO Comment:Testing performed by : [address] [address] Glucose comment 2 RN/MD Notified MARCELINO Comment:Testing performed by : [address] [address] Blood 11/12/2024 8:11 AM CDT 11/12/2024 8:11 AM CDT Conor Ventura MD LAB POCT ORDERABLE S - DEVICE Final Result Performing Organization Address [facility] Co de Phone Number [address] [address] * POCT glucose (11/12/2024 4:20 AM CDT) Glucose, POC 147 70 - 199 mg/dL Comment:Testing performed by : [address] [address] Glucose comment 1 Use This Result MARCELINO Comment:Testing performed by : [address] [address] Blood 11/12/2024 4:20 AM CDT 11/12/2024 4:20 AM CDT Conor Ventura MD LAB POCT ORDERABLE S - DEVICE Final Result Performing Organization Address [facility] de Phone Number [address] [address] * POCT glucose (11/11/2024 11:52 PM CDT) Glucose, POC 153 70 - 199 mg/dL Comment:Testing performed by : [address] [address] Glucose comment 1 Use This Result MARCELINO Comment:Testing performed by : [address] [address] Blood 11/11/2024 11:5 2 PM CDT 11/11/2024 11:52 PM CDT Conor Ventura MD LAB POCT ORDERABLE S - DEVICE Final Result Performing Organization Address City/[facility]/ZIP Co de Phone Number MARCELINO [address] [place] [address] * POCT glucose (11/11/2024 8:09 PM CDT) Glucose, POC 184 70 - 199 mg/dL Comment:Testing performed by : [address] [address] Glucose comment 1 Use This Result MARCELINO Comment:Testing performed by : [address] [address] Blood 11/11/2024 8:09 PM CDT 11/11/2024 8:09 PM CDT Conor Ventura MD LAB POCT ORDERABLE S - DEVICE Final Result Performing Organization Address [facility] de Phone Number [address] [address] * POCT glucose (11/11/2024 5:40 PM CDT) Glucose, POC 132 70 - 199 mg/dL Comment:Testing performed by : [address] [address] Glucose comment 1 Use This Result MARCELINO Comment:Testing performed by : [address] [address] Blood 11/11/2024 5:40 PM CDT 11/11/2024 5:40 PM CDT Conor Ventura MD LAB POCT ORDERABLE S - DEVICE Final Result Performing Organization Address City/[facility]/ZIP Co de Phone Number [address] [address] * POCT glucose (11/11/2024 12:01 PM CDT) [facility] Glucose, POC 177 70 - 199 mg/dL Comment:Testing performed by : [address] [address] Glucose comment 1 Use This Result MARCELINO HAYWOOD Comment:Testing performed by : [address] [address] Glucose comment 2 RN/MD Notified MARCELINO HAYWOOD Comment:Testing performed by : [address] [address] Blood 11/11/2024 12:0 1 PM CDT 11/11/2024 12:01 PM CDT Conor Ventura MD LAB POCT ORDERABLE S - DEVICE Final Result MARCELINO [address] [facility] Department [place] [address] * eGFR (11/10/2024 4:20 AM CDT) Pathologist [facility] eGFR 84 >=60 mL/min/1. 73 m2 Comment: [...] was last reviewed 2021. Testing performed by: [address] [address] Blood 11/10/2024 4:20 AM CDT 11/10/2024 4:39 AM CDT Conor Ventura MD LAB BLOOD ORDERABL ES Final Result MARCELINO [address] [facility] Department [place] [address] * Differential, auto (11/10/2024 4:20 AM CDT) Neutrophil abs 4.5 1.5 - 6.5 K/cumm Comment:Testing performed by : [address] [address] Imm gran abs 0.0 0.0 - 0.1 K/cumm MARCELINO Comment:Testing performed by : [address] [address] Lymphocyte abs 1.1 0.8 - 3.3 K/cumm MARCELINO Comment:Testing performed by : [address] [address] Monocyte abs 0.5 0.2 - 0.8 K/cumm MARCELINO Comment:Testing performed by : [address] [address] Eosinophil abs 0.2 0.0 - 0.5 K/cumm MARCELINO Comment:Testing performed by : [address] [address] Basophil abs 0.0 0.0 - 0.1 K/cumm MARCELINO Comment:Testing performed by : [address] [address] Neutrophil pct 70.4 % MARCELINO Comment: Interpretive Data Percent cell count reference ranges are not reported, since discordance with absolute values may lead to misinterpretation of CBC data. Current Interpretive Data was last revised on 2017. Testing performed by: [address] [address] Imm gran pct 0.3 % MARCELINO Comment: Interpretive Data Percent cell count reference ranges are not reported, since discordance with absolute values may lead to misinterpretation of CBC data. Current Interpretive Data was last revised on 2017. Testing performed by: [address] [address] Lymphocyte pct 16.9 % [facility] Comment: Interpretive Data Percent cell count reference ranges are not reported, since discordance with absolute values may lead to misinterpretation of CBC data. Current Interpretive Data was last revised on 2017. Testing performed by: [address] [address] Monocyte pct 8.4 % [facility] Comment: Interpretive Data Percent cell count reference ranges are not reported, since discordance with absolute values may lead to misinterpretation of CBC data. Current Interpretive Data was last revised on 2017. Testing performed by: [address] [address] Eosinophil pct 3.5 % [facility] Comment: Interpretive Data Percent cell count reference ranges are not reported, since discordance with absolute values may lead to misinterpretation of CBC data. Current Interpretive Data was last revised on 2017. Testing performed by: [address] [address] Basophil pct 0.5 % [facility] Comment: Interpretive Data Percent cell count reference ranges are not reported, since discordance with absolute values may lead to misinterpretation of CBC data. Current Interpretive Data was last revised on 2017. Testing performed by: [address] [address] Blood 11/10/2024 4:20 AM CDT 11/10/2024 4:39 AM CDT us Ananya MEANS LAB BLOOD ORDERABLES Final Re sult MARCELINO [address] [facility] [place] [address] * (ABNORMAL) CBC with auto differential (11/10/2024 4:20 AM CDT) WBC 6.3 3.8 - 9.9 K/cumm Comment:Testing performed by : [address] [address] Hgb 12.3 11.9 - 15.5 g/dL MARCELINO Comment:Testing performed by : [address] [address] Hct 39.0 35.6 - 45.5 % MARCELINO Comment:Testing performed by : [address] [address] Plt 326 150 - 400 K/cumm MARCELINO Comment:Testing performed by : [address] [address] MPV 10.3 9.1 - 12.3 fL MARCELINO Comment:Testing performed by : [address] [address] RBC 4.63 3.90 - 5.20 M/cumm MARCELINO Comment:Testing performed by : [address] [address] MCV 84.2 81.3 - 96.4 fL MARCELINO Comment:Testing performed by : [address] [address] MCH 26.6(L) 27.1 - 33.3 pg MARCELINO Comment:Testing performed by : [address] [address] MCHC 31.5(L) 32.3 - 35.7 g/dL MARCELINO Comment:Testing performed by : [address] [address] RDW CV 17.0(H) 11.1 - 14.9 % MARCELINO Comment:Testing performed by : [address] [address] RDW SD 52.2(H) 35.7 - 48.1 fL MARCELINO Comment:Testing performed by : [address] [address] NRBC abs 0.00 0.00 - 0.01 K/cumm MARCELINO Comment:Testing performed by : [address] [address] Blood 11/10/2024 4:20 AM CDT 11/10/2024 4:39 AM CDT Ananya MEANS LAB BLOOD ORDERABLES Final Re sult MARCELINO [address] [place] [address] * (ABNORMAL) CRP (acute phase) (11/10/2024 4:20 AM CDT) CRP 45.2(H) <=10.0 mg/L Comment:Testing performed by : [address] [address] Blood 11/10/2024 4:20 AM CDT 11/10/2024 4:39 AM CDT Conor Ventura MD LAB BLOOD ORDERABL ES Final Result Performing Organization Address [facility] Co de Phone Number MARCELINO [address] [place] [address] * Phosphorus (11/10/2024 4:20 AM CDT) Phosphorus, pl 3.4 2.3 - 4.5 mg/dL Comment:Testing performed by : [address] [address] Blood 11/10/2024 4:20 AM CDT 11/10/2024 4:39 AM CDT Conor Ventura MD LAB BLOOD ORDERABL ES Final Result MARCELINO [address] [place] [address] * Magnesium (11/10/2024 4:20 AM CDT) Magnesium 2.2 1.4 - 2.5 mg/dL Comment:Testing performed by : [address] [address] Blood 11/10/2024 4:20 AM CDT 11/10/2024 4:39 AM CDT Conor Ventura MD LAB BLOOD ORDERABL ES Final Result [facility] [address] [facility] [place] [address] * (ABNORMAL) Comprehensive metabolic panel (11/10/2024 4:20 AM CDT) Sodium 141 135 - 145 mmol/L Comment:Testing performed by : [address] [address] Potassium, pl 3.2(L) 3.3 - 4.9 mmol/L MARCELINO Comment: Hemolyzed; Potassium value may be falsely elevated by as much as 1.0 mmol/L. Suggest redraw and reanalysis. Testing performed by: [address] [address] Chloride 105 97 - 110 mmol/L MARCELINO Comment:Testing performed by : [address] [address] CO2 25 22 - 32 mmol/L MARCELINO Comment:Testing performed by : [address] [address] Anion gap 11 2 - 15 mmol/L MARCELINO Comment:Testing performed by : [address] [address] BUN 8 6 - 25 mg/dL MARCELINO Comment:Testing performed by : [address] [address] Creatinine 0.71 0.60 - 1.10 mg/dL MARCELINO Comment:Testing performed by : [address] [address] Glucose 143 70 - 199 mg/dL MARCELINO [...] was last revised 2022. Testing performed by: [facility], [address] [place] [address]., [address] Calcium 9.7 8.5 - 10.3 mg/dL MARCELINO Comment:Testing performed by : [address] [address] Bilirubin, total 0.2 0.1 - 1.2 mg/dL MARCELINO Comment:Testing performed by : [address] [address] Protein, pl 6.3(L) 6.5 - 8.5 g/dL MARCELINO Comment:Testing performed by : [address] [address] Albumin 2.9(L) 3.5 - 5.0 g/dL MARCELINO Comment:Testing performed by : [address] [address] Alk phos 97 40 - 130 Units/L MARCELINO Comment:Testing performed by : [address] [address] ALT 10 7 - 45 Units/L MARCELINO Comment:Testing performed by : [address] [address] AST 23 10 - 45 Units/L MARCELINO Comment: Hemolyzed; result may be falsely elevated Testing performed by: [address] [address] Blood 11/10/2024 4:20 AM CDT 11/10/2024 4:39 AM CDT us Conor Ventura MD LAB BLOOD ORDERABL ES Final Result MARCELINO [address] [facility] [place] [address] * POCT glucose (11/10/2024 4:00 AM CDT) Glucose, POC 140 70 - 199 mg/dL Comment:Testing performed by : [address] [address] Glucose comment 1 Use This Result MARCELINO Comment:Testing performed by : [address] [address] Blood 11/10/2024 4:00 AM CDT 11/10/2024 4:00 AM CDT Conor Ventura MD LAB POCT ORDERABLE S - DEVICE Final Result Performing Organization Address City/[facility]/ZIP Co de Phone Number [address] [place] [address] * (ABNORMAL) POCT glucose (11/09/2024 11:57 PM CDT) Glucose, POC 228(H) 70 - 199 mg/dL Comment:Testing performed by : [address] [address] Glucose comment 1 Use This Result MARCELINO Comment:Testing performed by : [address] [address] Blood 11/09/2024 11:5 7 PM CDT 11/09/2024 11:57 PM CDT Conor Ventura MD LAB POCT ORDERABLE S - DEVICE Final Result Performing Organization Address City/[facility]/ZIP Co de Phone Number [address] [place] [address] * POCT glucose (11/09/2024 8:40 PM CDT) Glucose, POC 146 70 - 199 mg/dL Comment:Testing performed by : [address] [address] Glucose comment 1 Use This Result MARCELINO Comment:Testing performed by : [address] [place] [address] Blood 11/09/2024 8:40 PM CDT 11/09/2024 8:40 PM CDT Conor Ventura MD LAB POCT ORDERABLE S - DEVICE Final Result [address] [place] [address] * POCT glucose (11/09/2024 4:53 PM CDT) Glucose, POC 133 70 - 199 mg/dL Comment:Testing performed by : [address] [address] Blood 11/09/2024 4:53 PM CDT 11/09/2024 4:53 PM CDT Conor Ventura MD LAB POCT ORDERABLE S - DEVICE Final Result Performing Organization Address [facility] Co de Phone Number [address] [address] * POCT glucose (11/09/2024 12:08 PM CDT) Glucose, POC 187 70 - 199 mg/dL Comment:Testing performed by : [address] [address] Blood 11/09/2024 12:0 8 PM CDT 11/09/2024 12:08 PM CDT Conor Ventura MD LAB POCT ORDERABLE S - DEVICE Final Result [address] [place] [address] * POCT glucose (11/09/2024 8:52 AM CDT) Glucose, POC 152 70 - 199 mg/dL Comment:Testing performed by : [facility], [address] [place] [address]., [address] Blood 11/09/2024 8:52 AM CDT 11/09/2024 8:52 AM CDT Conor Ventura MD LAB POCT ORDERABLE S - DEVICE Final Result Performing Organization Address [facility] Co de Phone Number MARCELINO [address] [place] [address] * eGFR (11/09/2024 5:08 AM CDT) eGFR [...] was last reviewed 2021. Testing performed by: [facility], [address] [place] [address]., [address] Blood 11/09/2024 5:08 AM CDT 11/09/2024 5:33 AM CDT Conor Ventura MD LAB BLOOD ORDERABL ES Final Result Performing Organization Address City/[facility]/ZIP Co de Phone Number MARCELINO [address] [place] [address] * Differential, auto (11/09/2024 5:08 AM CDT) Neutrophil abs 4.5 1.5 - 6.5 K/cumm Comment:Testing performed by : [address] [address] Imm gran abs 0.0 0.0 - 0.1 K/cumm [facility] Comment:Testing performed by : [address] [address] Lymphocyte abs 1.1 0.8 - 3.3 K/cumm [facility] Comment:Testing performed by : [address] [address] Monocyte abs 0.5 0.2 - 0.8 K/cumm [facility] Comment:Testing performed by : [address] [address] Eosinophil abs 0.2 0.0 - 0.5 K/cumm [facility] Comment:Testing performed by : [address] [address] Basophil abs 0.0 0.0 - 0.1 K/cumm [facility] Comment:Testing performed by : [address] [address] Neutrophil pct 71.4 % [facility] Comment: Interpretive Data Percent cell count reference ranges are not reported, since discordance with absolute values may lead to misinterpretation of CBC data. Current Interpretive Data was last revised on 2017. Testing performed by: [address] [address] Imm gran pct 0.6 % [facility] Comment: Interpretive Data Percent cell count reference ranges are not reported, since discordance with absolute values may lead to misinterpretation of CBC data. Current Interpretive Data was last revised on 2017. Testing performed by: [address] [address] Lymphocyte pct 16.5 % [facility] Comment: Interpretive Data Percent cell count reference ranges are not reported, since discordance with absolute values may lead to misinterpretation of CBC data. Current Interpretive Data was last revised on 2017. Testing performed by: [address] [address] Monocyte pct 8.5 % MARCELINO Comment: Interpretive Data Percent cell count reference ranges are not reported, since discordance with absolute values may lead to misinterpretation of CBC data. Current Interpretive Data was last revised on 2017. Testing performed by: [address] [address] Eosinophil pct 2.7 % MARCELINO Comment: Interpretive Data Percent cell count reference ranges are not reported, since discordance with absolute values may lead to misinterpretation of CBC data. Current Interpretive Data was last revised on 2017. Testing performed by: [address] [address] Basophil pct 0.3 % MARCELINO Comment: Interpretive Data Percent cell count reference ranges are not reported, since discordance with absolute values may lead to misinterpretation of CBC data. Current Interpretive Data was last revised on 2017. Testing performed by: [address] [address] Blood 11/09/2024 5:08 AM CDT 11/09/2024 5:33 AM CDT us Ananya MEANS LAB BLOOD ORDERABLES Final Re sult MARCELINO [address] [facility] Department of Laboratories [place], [place] [id number] * (ABNORMAL) CBC with auto differential (11/09/2024 5:08 AM CDT) Pathologist [facility] WBC 6.4 3.8 - 9.9 K/cumm Comment:Testing performed by : [address] [address] Hgb 11.9 11.9 - 15.5 g/dL MARCELINO HAYWOOD Comment:Testing performed by : [address] [address] Hct 38.4 35.6 - 45.5 % MARCELINO Comment:Testing performed by : [address] [address] Plt 342 150 - 400 K/cumm MARCELINO HAYWOOD Comment:Testing performed by : [address] [address] MPV 10.5 9.1 - 12.3 fL MARCELINO HAYWOOD Comment:Testing performed by : [address] [address] RBC 4.52 3.90 - 5.20 M/cumm MARCELINO HAYWOOD Comment:Testing performed by : [address] [address] MCV 85.0 81.3 - 96.4 fL MARCELINO Comment:Testing performed by : [address] [address] MCH 26.3(L) 27.1 - 33.3 pg MARCELINO Comment:Testing performed by : [address] [address] MCHC 31.0(L) 32.3 - 35.7 g/dL MARCELINO Comment:Testing performed by : [address] [address] RDW CV 17.1(H) 11.1 - 14.9 % MARCELINO Comment:Testing performed by : [address] [address] RDW SD 53.1(H) 35.7 - 48.1 fL MARCELINO Comment:Testing performed by : [address] [address] NRBC abs 0.00 0.00 - 0.01 K/cumm MARCELINO Comment:Testing performed by : [address] [address] Blood 11/09/2024 5:08 AM CDT 11/09/2024 5:33 AM CDT us Ananya MEANS LAB BLOOD ORDERABLES Final Re sult MARCELINO [address] [facility] [place] [address] * (ABNORMAL) CRP (acute phase) (11/09/2024 5:08 AM CDT) CRP 102.6(H) <=10.0 mg/L Comment:Testing performed by : [address] [address] Blood 11/09/2024 5:08 AM CDT 11/09/2024 5:33 AM CDT Conor Ventura MD LAB BLOOD ORDERABL ES Final Result [address] [employer] [place], [place] [id number] * (ABNORMAL) Phosphorus (11/09/2024 5:08 AM CDT) [facility] Phosphorus, pl 2.1(L) 2.3 - 4.5 mg/dL Comment:Testing performed by : [address] [address] Blood 11/09/2024 5:08 AM CDT 11/09/2024 5:33 AM CDT Conor Ventura MD LAB BLOOD ORDERABL ES Final Result Performing Organization Address [facility] Co de Phone Number [address] [place] [address] * (ABNORMAL) Magnesium (11/09/2024 5:08 AM CDT) [facility] Magnesium 1.2(L) 1.4 - 2.5 mg/dL Comment:Testing performed by : [address] [address] Blood 11/09/2024 5:08 AM CDT 11/09/2024 5:33 AM CDT Conor Ventura MD LAB BLOOD ORDERABL ES Final Result [address] [place] [address] * (ABNORMAL) Comprehensive metabolic panel (11/09/2024 5:08 AM CDT) Sodium 140 135 - 145 mmol/L Comment:Testing performed by : [address], [place]., [address] Potassium, pl 3.0(L) 3.3 - 4.9 mmol/L MARCELINO Comment:Testing performed by : [address], [place]., [address] Chloride 103 97 - 110 mmol/L MARCELINO Comment:Testing performed by : [address] [address] CO2 27 22 - 32 mmol/L MARCELINO Comment:Testing performed by : [address], [place]., [address] Anion gap 10 2 - 15 mmol/L MARCELINO Comment:Testing performed by : [address] [address] BUN 7 6 - 25 mg/dL MARCELINO Comment:Testing performed by : [address], [place]., [address] Creatinine 0.60 0.60 - 1.10 mg/dL MARCELINO Comment:Testing performed by : [address] [address] Glucose 197 70 - 199 mg/dL MARCELINO [...] was last revised 2022. Testing performed by: [address] [address] Calcium 9.9 8.5 - 10.3 mg/dL MARCELINO Comment:Testing performed by : [address] [address] Bilirubin, total 0.2 0.1 - 1.2 mg/dL MARCELINO Comment:Testing performed by : [address] [address] Protein, pl 6.0(L) 6.5 - 8.5 g/dL MARCELINO Comment:Testing performed by : [address] [address] Albumin 2.7(L) 3.5 - 5.0 g/dL MARCELINO Comment:Testing performed by : [address], [place]., [address] Alk phos 91 40 - 130 Units/L MARCELINO Comment:Testing performed by : [address] [address] ALT 7 7 - 45 Units/L MARCELINO Comment:Testing performed by : [address] [address] AST 14 10 - 45 Units/L MARCELINO Comment:Testing performed by : [address] [address] Blood 11/09/2024 5:08 AM CDT 11/09/2024 5:33 AM CDT Conor Ventura MD LAB BLOOD ORDERABL ES Final Result MARCELINO [address] [facility] Department of Laboratories [place], [place] [id number] * POCT glucose (11/09/2024 5:01 AM CDT) Glucose, POC 191 70 - 199 mg/dL Comment:Testing performed by : [address] [address] Glucose comment 1 Use This Result MARCELINO HAYWOOD Comment:Testing performed by : [address] [address] Blood 11/09/2024 5:01 AM CDT 11/09/2024 5:01 AM CDT Result [facility] Conor Ventura MD LAB POCT ORDERABLE S - DEVICE Final Result Performing Organization Address City/[facility]/ZIP Co de Phone Number MARCELINO [address] [address] * POCT glucose (11/09/2024 12:07 AM CDT) Glucose, POC 197 70 - 199 mg/dL Comment:Testing performed by : [facility], [address] [place] [address]., [address] Glucose comment 1 Use This Result MARCELINO Comment:Testing performed by : [address] [address] Blood 11/09/2024 12:0 7 AM CDT 11/09/2024 12:07 AM CDT Result [facility] Conor Ventura MD LAB POCT ORDERABLE S - DEVICE Final Result Performing Organization Address [facility] de Phone Number [address] [address] * POCT glucose (11/08/2024 8:15 PM CDT) Glucose, POC 181 70 - 199 mg/dL Comment:Testing performed by : [address] [address] Glucose comment 1 Use This Result MARCELINO Comment:Testing performed by : [address] [address] Blood 11/08/2024 8:15 PM CDT 11/08/2024 8:15 PM CDT Result [facility] Conor Ventura MD LAB POCT ORDERABLE S - DEVICE Final Result Performing Organization Address City/[facility]/ZIP Co de Phone Number OR[address] [address] * POCT glucose (11/08/2024 3:43 PM CDT) Glucose, POC 157 70 - 199 mg/dL Comment:Testing performed by : [address] [address] Blood 11/08/2024 3:43 PM CDT 11/08/2024 3:43 PM CDT Conor Ventura MD LAB POCT ORDERABLE S - DEVICE Final Result Performing Organization Address [facility] Co de Phone Number [address] [place] [address] * POCT glucose (11/08/2024 11:42 AM CDT) Glucose, POC 167 70 - 199 mg/dL Comment:Testing performed by : [address] [address] Blood 11/08/2024 11:4 2 AM CDT 11/08/2024 11:42 AM CDT Conor Ventura MD LAB POCT ORDERABLE S - DEVICE Final Result Performing Organization Address [facility] de Phone Number [address] [address] * POCT glucose (11/08/2024 7:59 AM CDT) Glucose, POC 173 70 - 199 mg/dL Comment:Testing performed by : [address] [address] Glucose comment 1 Use This Result MARCELINO HAYWOOD Comment:Testing performed by : [address] [address] Blood 11/08/2024 7:59 AM CDT 11/08/2024 7:59 AM CDT Conor Ventura MD LAB POCT ORDERABLE S - DEVICE Final Result Performing Organization Address [facility] de Phone Number [address] [place] [address] * (ABNORMAL) POCT glucose (11/08/2024 7:58 AM CDT) Glucose, POC 204(H) 70 - 199 mg/dL Comment:Testing performed by : [address] [address] Glucose comment 1 Use This Result [facility] Comment:Testing performed by : [address] [address] Blood 11/08/2024 7:58 AM CDT 11/08/2024 7:58 AM CDT Conor Ventura MD LAB POCT ORDERABLE S - DEVICE Final Result Performing Organization Address [facility] de Phone Number [address] [address] * (ABNORMAL) POCT glucose (11/08/2024 5:46 AM CDT) [facility] Glucose, POC 210(H) 70 - 199 mg/dL Comment:Testing performed by : [address] [address] Glucose comment 1 Use This Result [facility] Comment:Testing performed by : [address] [address] Blood 11/08/2024 5:46 AM CDT 11/08/2024 5:46 AM CDT Conor Ventura MD LAB POCT ORDERABLE S - DEVICE Final Result Performing Organization Address [facility] Co de Phone Number [address] [address] * eGFR (11/08/2024 1:05 AM CDT) [facility] eGFR 90 >=60 mL/min/1. 73 m2 Comment: [...] was last reviewed 2021. Testing performed by: [facility], [address] [place] [address]., [address] Blood 11/08/2024 1:05 AM CDT 11/08/2024 1:24 AM CDT Conor Ventura MD LAB BLOOD ORDERABL ES Final Result MARCELINO [address] [facility] Department [place] [address] * Blood culture Blood (11/08/2024 1:05 AM CDT) Report Final Report: No growth Comment:Testing performed by : [facility], [address] [facility], [place]., [address] Blood 11/08/2024 1:05 AM CDT 11/08/2024 3:32 [...] performance characteristics have been verified by the [facility]. For questions about this culture, contact the Microbiology Laboratory at [phone]. Interpretive data was last revised on 24. Conor Ventura MD LAB MICROBIOLOGY - GENERAL ORDERABLES Final Result Performing Organization Address City/[facility]/ZIP Co de Phone Number MARCELINO [facility] [employer] [place] [address] * (ABNORMAL) CRP (acute phase) (11/08/2024 1:05 AM CDT) Pathologist [facility] CRP 101.0(H) <=10.0 mg/L Comment:Testing performed by : [facility], [address] [place] [address]., [address] Blood 11/08/2024 1:05 AM CDT 11/08/2024 1:24 AM CDT Conor Ventura MD LAB BLOOD ORDERABL ES Final Result Performing Organization Address City/[facility] Co de Phone Number [address] [place], [place] [id number] * Phosphorus (11/08/2024 1:05 AM CDT) Pathologist [facility] Phosphorus, pl 3.5 2.3 - 4.5 mg/dL Comment:Testing performed by : [address] [address] Blood 11/08/2024 1:05 AM CDT 11/08/2024 1:24 AM CDT Conor Ventura MD LAB BLOOD ORDERABL ES Final Result Performing Organization Address [facility] Co de Phone Number [address] [place] [address] * Magnesium (11/08/2024 1:05 AM CDT) Magnesium 1.4 1.4 - 2.5 mg/dL Comment:Testing performed by : [address] [address] Blood 11/08/2024 1:05 AM CDT 11/08/2024 1:24 AM CDT Conor Ventura MD LAB BLOOD ORDERABL ES Final Result Performing Organization Address [facility] Co de Phone Number [address] [address] * (ABNORMAL) Comprehensive metabolic panel (11/08/2024 1:05 AM CDT) Sodium 143 135 - 145 mmol/L Comment:Testing performed by : [address] [address] Potassium, pl 3.1(L) 3.3 - 4.9 mmol/L MARCELINO Comment:Testing performed by : [address] [address] Chloride 107 97 - 110 mmol/L MARCELINO Comment:Testing performed by : [address] [address] CO2 26 22 - 32 mmol/L MARCELINO Comment:Testing performed by : [address] [address] Anion gap 10 2 - 15 mmol/L MARCELINO Comment:Testing performed by : [address] [address] BUN 8 6 - 25 mg/dL MARCELINO Comment:Testing performed by : [address] [address] Creatinine 0.56(L) 0.60 - 1.10 mg/dL MARCELINO Comment:Testing performed by : [address] [address] Glucose 209(H) 70 - 199 mg/dL MARCELINO [...] was last revised 2022. Testing performed by: [address] [address] Calcium 9.5 8.5 - 10.3 mg/dL MARCELINO Comment:Testing performed by : [address] [address] Bilirubin, total 0.2 0.1 - 1.2 mg/dL MARCELINO Comment:Testing performed by : [address] [address] Protein, pl 6.0(L) 6.5 - 8.5 g/dL MARCELINO Comment:Testing performed by : [address] [address] Albumin 2.9(L) 3.5 - 5.0 g/dL MARCELINO Comment:Testing performed by : [address] [address] Alk phos 90 40 - 130 Units/L MARCELINO Comment:Testing performed by : [address] [address] ALT 11 7 - 45 Units/L MARCELINO Comment:Testing performed by : [address] [address] AST 13 10 - 45 Units/L MARCELINO Comment:Testing performed by : [address] [address] Blood 11/08/2024 1:05 AM CDT 11/08/2024 1:24 AM CDT Conor Ventura MD LAB BLOOD ORDERABL ES Final Result Performing Organization Address [facility] Co de Phone Number [address] [address] * POCT glucose (11/08/2024 12:31 AM CDT) Glucose, POC 195 70 - 199 mg/dL Comment:Testing performed by : [address] [address] Glucose comment 1 Use This Result MARCELINO Comment:Testing performed by : [address] [address] Blood 11/08/2024 12:3 1 AM CDT 11/08/2024 12:31 AM CDT Conor Ventura MD LAB POCT ORDERABLE S - DEVICE Final Result Performing Organization Address [facility] de Phone Number [address] [address] * POCT glucose (11/07/2024 9:10 PM CDT) Glucose, POC 140 70 - 199 mg/dL Comment:Testing performed by : [address] [address] Glucose comment 1 Use This Result MARCELINO Comment:Testing performed by : [address] [address] Blood 11/07/2024 9:10 PM CDT 11/07/2024 9:10 PM CDT Conor Ventura MD LAB POCT ORDERABLE S - DEVICE Final Result Performing Organization Address City/[facility]/ZIP Co de Phone Number MARCELINO [address] [place] [address] * POCT glucose (11/07/2024 4:39 PM CDT) Glucose, POC 183 70 - 199 mg/dL Comment:Testing performed by : [facility], [address] [place] [address]., [address] Blood 11/07/2024 4:39 PM CDT 11/07/2024 4:39 PM CDT Conor Ventura MD LAB POCT ORDERABLE S - DEVICE Final Result Performing Organization Address City/[facility] Co de Phone Number MARCELINO [address] [address] * eGFR (11/07/2024 1:49 PM CDT) eGFR [...] was last reviewed 2021. Testing performed by: [address] [address] Blood 11/07/2024 1:49 PM CDT 11/07/2024 2:07 PM CDT us Satinder Dougherty MD LAB BLOOD ORDERABLES Fi nal Result MARCELINO [address] [facility] Department [place] [address] * (ABNORMAL) Differential, auto (11/07/2024 1:49 PM CDT) Neutrophil abs 9.8(H) 1.5 - 6.5 K/cumm Comment:Testing performed by : [address] [address] Imm gran abs 0.1 0.0 - 0.1 K/cumm MARCELINO Comment:Testing performed by : [address] [address] Lymphocyte abs 0.8 0.8 - 3.3 K/cumm MARCELINO Comment:Testing performed by : [address] [address] Monocyte abs 0.8 0.2 - 0.8 K/cumm MARCELINO Comment:Testing performed by : [address] [address] Eosinophil abs 0.1 0.0 - 0.5 K/cumm MARCELINO Comment:Testing performed by : [address] [address] Basophil abs 0.1 0.0 - 0.1 K/cumm MARCELINO Comment:Testing performed by : [address] [address] Neutrophil pct 84.7 % MARCELINO Comment: Interpretive Data Percent cell count reference ranges are not reported, since discordance with absolute values may lead to misinterpretation of CBC data. Current Interpretive Data was last revised on 2017. Testing performed by: [address] [address] Imm gran pct 0.5 % MARCELINO Comment: Interpretive Data Percent cell count reference ranges are not reported, since discordance with absolute values may lead to misinterpretation of CBC data. Current Interpretive Data was last revised on 2017. Testing performed by: [address] [address] Lymphocyte pct 6.5 % [facility] Comment: Interpretive Data Percent cell count reference ranges are not reported, since discordance with absolute values may lead to misinterpretation of CBC data. Current Interpretive Data was last revised on 2017. Testing performed by: [address] [address] Monocyte pct 7.2 % [facility] Comment: Interpretive Data Percent cell count reference ranges are not reported, since discordance with absolute values may lead to misinterpretation of CBC data. Current Interpretive Data was last revised on 2017. Testing performed by: [address] [address] Eosinophil pct 0.7 % [facility] Comment: Interpretive Data Percent cell count reference ranges are not reported, since discordance with absolute values may lead to misinterpretation of CBC data. Current Interpretive Data was last revised on 2017. Testing performed by: [address] [address] Basophil pct 0.4 % [facility] Comment: Interpretive Data Percent cell count reference ranges are not reported, since discordance with absolute values may lead to misinterpretation of CBC data. Current Interpretive Data was last revised on 2017. Testing performed by: [address] [address] Blood 11/07/2024 1:49 PM CDT 11/07/2024 2:07 PM CDT us Ananya MEANS LAB BLOOD ORDERABLES Final Re sult MARCELINO HAYWOOD [address] [facility] Department [place] [address] * Thyroid Function [address] (11/07/2024 1:49 PM CDT) TSH 3.28 0.30 - 4.20 mcIUnit/mL Comment:Testing performed by : [address] [address] Blood 11/07/2024 1:49 PM CDT 11/07/2024 2:07 PM CDT Conor Ventura MD LAB BLOOD ORDERABL ES Final Result [facility] [address] [facility] Department [place] [address] * (ABNORMAL) CBC with auto differential (11/07/2024 1:49 PM CDT) WBC 11.6(H) 3.8 - 9.9 K/cumm Comment:Testing performed by : [address] [address] Hgb 12.6 11.9 - 15.5 g/dL MARCELINO Comment:Testing performed by : [address] [address] Hct 39.9 35.6 - 45.5 % MARCELINO Comment:Testing performed by : [address] [address] Plt 407(H) 150 - 400 K/cumm MARCELINO Comment:Testing performed by : [address] [address] MPV 10.5 9.1 - 12.3 fL MARCELINO Comment:Testing performed by : [address] [address] RBC 4.73 3.90 - 5.20 M/cumm MARCELINO Comment:Testing performed by : [address] [address] MCV 84.4 81.3 - 96.4 fL MARCELINO Comment:Testing performed by : [address] [address] MCH 26.6(L) 27.1 - 33.3 pg MARCELINO HAYWOOD Comment:Testing performed by : [address] [address] MCHC 31.6(L) 32.3 - 35.7 g/dL MARCELINO HAYWOOD Comment:Testing performed by : [address] [address] RDW CV 17.2(H) 11.1 - 14.9 % MARCELINO HAYWOOD Comment:Testing performed by : [address], [address] RDW SD 53.5(H) 35.7 - 48.1 fL MARCELINO Comment:Testing performed by : [address] [address] NRBC abs 0.00 0.00 - 0.01 K/cumm MARCELINO Comment:Testing performed by : [address], [address] Blood 11/07/2024 1:49 PM CDT 11/07/2024 2:07 PM CDT us Ananya MEANS LAB BLOOD ORDERABLES Final Re sult Performing Organization Address City/[facility]/ZIP Co de Phone Number [address] [place] [address] * (ABNORMAL) Erythrocyte sedimentation rate (11/07/2024 1:49 PM CDT) [facility] Erythrocyte sedimentation rate 85(H) 1 - 30 mm/hr Comment:Testing performed by : [address], [address] Blood 11/07/2024 1:49 PM CDT 11/07/2024 2:07 PM CDT us Conor Ventura MD LAB BLOOD ORDERABL ES Final Result Performing Organization Address [facility] Co de Phone Number [address] [place] [address] * (ABNORMAL) CRP (acute phase) (11/07/2024 1:49 PM CDT) [facility] CRP 108.0(H) <=10.0 mg/L Comment:Testing performed by : [address] [address] Blood 11/07/2024 1:49 PM CDT 11/07/2024 2:07 PM CDT Conor Ventura MD LAB BLOOD ORDERABL ES Final Result Performing Organization Address [facility] Co de Phone Number [address] [address] * Ammonia (11/07/2024 1:49 PM CDT) Pathologist [facility] Ammonia 13 <=50 mcmol/L Comment: Please note on 01/05/2024 the unit of measure changed from mcg/dL to mcmol/L. Current Interpretive Data was last revised on 2024 Testing performed by: [address] [address] Blood 11/07/2024 1:49 PM CDT 11/07/2024 2:05 PM CDT Conor Ventura MD LAB BLOOD ORDERABL ES Final Result Performing Organization Address [facility] Co de Phone Number [address] [address] * (ABNORMAL) Basic metabolic panel (11/07/2024 1:49 PM CDT) Pathologist [facility] Sodium 144 135 - 145 mmol/L Comment:Testing performed by : [address] [address] Potassium, pl 2.9(L) 3.3 - 4.9 mmol/L MARCELINO HAYWOOD Comment:Testing performed by : [address] [address] Chloride 109 97 - 110 mmol/L MARCELINO Comment:Testing performed by : [address] [address] CO2 23 22 - 32 mmol/L MARCELINO HAYWOOD Comment:Testing performed by : [address] [place]., [address] Anion gap 12 2 - 15 mmol/L MARCELINO Comment:Testing performed by : [address] [address] BUN 10 6 - 25 mg/dL MARCELINO Comment:Testing performed by : [address] [address] Creatinine 0.55(L) 0.60 - 1.10 mg/dL MARCELINO Comment:Testing performed by : [address] [address] Glucose 170 70 - 199 mg/dL MARCELINO [...] was last revised 2022. Testing performed by: [address] [address] Calcium 10.0 8.5 - 10.3 mg/dL MARCELINO Comment:Testing performed by : [address] [address] Blood 11/07/2024 1:49 PM CDT 11/07/2024 2:07 PM CDT us Satinder Dougherty MD LAB BLOOD ORDERABLES Fi nal Result [facility] [address] [facility] Department [place] [address] * POCT glucose (11/07/2024 12:43 PM CDT) Glucose, POC 170 70 - 199 mg/dL Comment:Testing performed by : [address] [address] Blood 11/07/2024 12:4 3 PM CDT 11/07/2024 12:43 PM CDT Conor Ventura MD LAB POCT ORDERABLE S - DEVICE Final Result MARCELINO MH [address] [facility] Department [place] [address] * CT Chest Abdomen Pelvis W Contrast [...] vessels without aneurysm. 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 AM: AM Report ID: [id number] Reading Location: [id number] Procedure Note Shahid Schaeffer MD - 11/07/2024 [...] vessels without aneurysm. 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 AM: AM Report ID: [id number] Reading Location: [id number] Conor Ventura MD IMG CT PROCEDURES Final Result * Lactate (11/07/2024 12:23 PM CDT) Pathologist [facility] Lactate 1.1 0.7 - 2.0 mmol/L Comment:Testing performed by : [facility], [address] [place] [address]., [address] Blood 11/07/2024 12:2 3 PM CDT 11/07/2024 12:28 PM CDT Conor Ventura MD LAB BLOOD ORDERABL ES Final Result MARCELINO [address] [facility] Department [place] [address] * eGFR (11/07/2024 12:23 PM [...] was last reviewed 2021. Testing performed by: [address] [address] Blood 11/07/2024 12:2 3 PM CDT 11/07/2024 12:28 PM CDT us Conor Ventura MD LAB BLOOD ORDERABL ES Final Result MARCELINO [address] [facility] [place] [address] * (ABNORMAL) Differential, auto (11/07/2024 12:23 PM CDT) Neutrophil abs 10.0(H) 1.5 - 6.5 K/cumm Comment:Testing performed by : [address] [address] Imm gran abs 0.1 0.0 - 0.1 K/cumm MARCELINO Comment:Testing performed by : [address] [address] Lymphocyte abs 0.9 0.8 - 3.3 K/cumm MARCELINO Comment:Testing performed by : [address] [address] Monocyte abs 0.9(H) 0.2 - 0.8 K/cumm MARCELINO Comment:Testing performed by : [address] [address] Eosinophil abs 0.1 0.0 - 0.5 K/cumm MARCELINO Comment:Testing performed by : [address] [address] Basophil abs 0.1 0.0 - 0.1 K/cumm MARCELINO Comment:Testing performed by : [address] [address] Neutrophil pct 82.9 % MARCELINO Comment: Interpretive Data Percent cell count reference ranges are not reported, since discordance with absolute values may lead to misinterpretation of CBC data. Current Interpretive Data was last revised on 2017. Testing performed by: [address] [address] Imm gran pct 0.6 % MARCELINO Comment: Interpretive Data Percent cell count reference ranges are not reported, since discordance with absolute values may lead to misinterpretation of CBC data. Current Interpretive Data was last revised on 2017. Testing performed by: [address] [address] Lymphocyte pct 7.6 % [facility] Comment: Interpretive Data Percent cell count reference ranges are not reported, since discordance with absolute values may lead to misinterpretation of CBC data. Current Interpretive Data was last revised on 2017. Testing performed by: [address] [address] Monocyte pct 7.8 % [facility] Comment: Interpretive Data Percent cell count reference ranges are not reported, since discordance with absolute values may lead to misinterpretation of CBC data. Current Interpretive Data was last revised on 2017. Testing performed by: [address] [address] Eosinophil pct 0.6 % [facility] Comment: Interpretive Data Percent cell count reference ranges are not reported, since discordance with absolute values may lead to misinterpretation of CBC data. Current Interpretive Data was last revised on 2017. Testing performed by: [address] [address] Basophil pct 0.5 % [facility] Comment: Interpretive Data Percent cell count reference ranges are not reported, since discordance with absolute values may lead to misinterpretation of CBC data. Current Interpretive Data was last revised on 2017. Testing performed by: [address] [address] Blood 11/07/2024 12:2 3 PM CDT 11/07/2024 12:28 PM CDT Conor Ventura MD LAB BLOOD ORDERABL ES Final Result [facility] [address] [facility] Department [place] [address] * (ABNORMAL) CBC with auto differential (11/07/2024 12:23 PM CDT) [facility] Signature WBC 12.1(H) 3.8 - 9.9 K/cumm Comment:Testing performed by : [address] [address] Hgb 12.6 11.9 - 15.5 g/dL MARCELINO Comment:Testing performed by : [address] [address] Hct 40.7 35.6 - 45.5 % MARCELINO Comment:Testing performed by : [address] [address] Plt 395 150 - 400 K/cumm MARCELINO Comment:Testing performed by : [address] [address] MPV 10.1 9.1 - 12.3 fL MARCELINO Comment:Testing performed by : [address] [address] RBC 4.71 3.90 - 5.20 M/cumm MARCELINO Comment:Testing performed by : [address] [address] MCV 86.4 81.3 - 96.4 fL MARCELINO Comment:Testing performed by : [address] [address] MCH 26.8(L) 27.1 - 33.3 pg MARCELINO Comment:Testing performed by : [address] [address] MCHC 31.0(L) 32.3 - 35.7 g/dL MARCELINO Comment:Testing performed by : [address] [address] RDW CV 17.2(H) 11.1 - 14.9 % MARCELINO Comment:Testing performed by : [address], [address] RDW SD 54.4(H) 35.7 - 48.1 fL MARCELINO HAYWOOD Comment:Testing performed by : [facility], [address] [place] [address]., [address] NRBC abs 0.00 0.00 - 0.01 K/cumm MARCELINO HAYWOOD Comment:Testing performed by : [facility], [address] [place] [address]., [address] Blood 11/07/2024 12:2 3 PM CDT 11/07/2024 12:28 PM CDT Conor Ventura MD LAB BLOOD ORDERABL ES Final Result MARCELINO HAYWOOD [address] [facility] Department [place] [address] * Blood culture Blood (11/07/2024 12:23 PM CDT) Report Final Report: No growth Comment:Testing performed by : [facility], [address] [place] [address] Blood 11/07/2024 12:2 3 PM CDT 11/07/2024 [...] performance characteristics have been verified by the [facility]. For questions about this culture, contact the Microbiology Laboratory at [phone]. Interpretive data was last revised on 24. Conor Ventura MD LAB MICROBIOLOGY - GENERAL ORDERABLES Final Result Performing Organization Address City/[facility]/ZIP Co de Phone Number [address] [address] * (ABNORMAL) Phosphorus (11/07/2024 12:23 PM CDT) Phosphorus, pl 2.0(L) 2.3 - 4.5 mg/dL Comment:Testing performed by : [address] [address] Blood 11/07/2024 12:2 3 PM CDT 11/07/2024 12:28 PM CDT Conor Ventura MD LAB BLOOD ORDERABL ES Final Result Performing Organization Address [facility] de Phone Number [address] [address] * Magnesium (11/07/2024 12:23 PM CDT) Magnesium 1.4 1.4 - 2.5 mg/dL Comment:Testing performed by : [address] [address] Blood 11/07/2024 12:2 3 PM CDT 11/07/2024 12:28 PM CDT Conor Ventura MD LAB BLOOD ORDERABL ES Final Result Performing Organization Address City/[facility]/ZIP Co de Phone Number [address] [address] * (ABNORMAL) Comprehensive metabolic panel (11/07/2024 12:23 PM CDT) Sodium 145 135 - 145 mmol/L Comment:Testing performed by : [address] [address] Potassium, pl 3.1(L) 3.3 - 4.9 mmol/L MARCELINO Comment: Hemolyzed; Potassium value may be falsely elevated by as much as 1.0 mmol/L. Suggest redraw and reanalysis. Testing performed by: [address] [address] Chloride 107 97 - 110 mmol/L [facility] Comment:Testing performed by : [address] [address] CO2 22 22 - 32 mmol/L [facility] Comment:Testing performed by : [address] [address] Anion gap 16(H) 2 - 15 mmol/L [facility] Comment:Testing performed by : [address] [address] BUN 10 6 - 25 mg/dL [facility] Comment:Testing performed by : [address] [address] Creatinine 0.50(L) 0.60 - 1.10 mg/dL [facility] Comment:Testing performed by : [address] [address] Glucose 161 70 - 199 mg/dL [facility] Comment: Interpretive Data Fasting glucose >/= 126 [...] was last revised 2022. Testing performed by: [address] [address] Calcium 10.1 8.5 - 10.3 mg/dL [facility] Comment:Testing performed by : [address] [address] Bilirubin, total 0.3 0.1 - 1.2 mg/dL MARCELINO Comment:Testing performed by : [address] [address] Protein, pl 6.5 6.5 - 8.5 g/dL MARCELINO Comment:Testing performed by : [address], [place]., [address] Albumin 3.2(L) 3.5 - 5.0 g/dL MARCELINO Comment:Testing performed by : [address], [place]., [address] Alk phos 100 40 - 130 Units/L MARCELINO Comment:Testing performed by : [address] [address] ALT 8 7 - 45 Units/L MARCELINO Comment:Testing performed by : [address] [address] AST 13 10 - 45 Units/L [facility] Comment:Testing performed by : [address] [address] Blood 11/07/2024 12:2 3 PM CDT 11/07/2024 12:28 PM CDT Conor Ventura MD LAB BLOOD ORDERABL ES Final Result [facility] Department of Laboratories [place], [place] [id number] * POCT glucose (11/07/2024 8:12 AM CDT) Glucose, POC 138 70 - 199 mg/dL Comment:Testing performed by : [address] [address] Blood 11/07/2024 8:12 AM CDT 11/07/2024 8:12 AM CDT Conor Ventura MD LAB POCT ORDERABLE S - DEVICE Final Result Performing Organization Address [facility] Co de Phone Number MARCELINO [facility] [place] [address] * POCT glucose (11/07/2024 4:29 AM CDT) Glucose, POC 156 70 - 199 mg/dL Comment:Testing performed by : [address] [address] Blood 11/07/2024 4:29 AM CDT 11/07/2024 4:29 AM CDT Satinder Dougherty MD LAB POCT ORDERABLES - D EVICE Final Result Performing Organization Address [facility] de Phone Number MARCELINO [address] [address] * POCT glucose (11/06/2024 11:19 PM CDT) Glucose, POC 134 70 - 199 mg/dL Comment:Testing performed by : [address] [address] Glucose comment 1 Use This Result MARCELINO HAYWOOD Comment:Testing performed by : [address] [address] Blood 11/06/2024 11:1 9 PM CDT 11/06/2024 11:19 PM CDT Satinder Dougherty MD LAB POCT ORDERABLES - D EVICE Final Result Performing Organization Address [facility] [facility] Co de Phone Number MARCELINO [facility] [place] [address] * POCT glucose (11/06/2024 7:57 PM CDT) Glucose, POC 160 70 - 199 mg/dL Comment:Testing performed by : [address] [address] Glucose comment 1 Use This Result MARCELINO HAYWOOD Comment:Testing performed by : [address] [address] Blood 11/06/2024 7:57 PM CDT 11/06/2024 7:57 PM CDT Satinder Dougherty MD LAB POCT ORDERABLES - D EVICE Final Result Performing Organization Address City/[facility]/ZIP Co de Phone Number MARCELINO [address] [place] [address] * POCT glucose (11/06/2024 7:38 PM CDT) Glucose, POC 151 70 - 199 mg/dL Comment:Testing performed by : [facility], [address] [place] [address]., [address] Glucose comment 1 Use This Result MARCELINO Comment:Testing performed by : [facility], [address] [place] [address]., [address] Blood 11/06/2024 7:38 PM CDT 11/06/2024 7:38 PM CDT Satinder Dougherty MD LAB POCT ORDERABLES - D EVICE Final Result Performing Organization Address [facility] Co de Phone Number [address] [address] * POCT glucose (11/06/2024 5:21 PM CDT) Glucose, POC 161 70 - 199 mg/dL Comment:Testing performed by : [address] [address] Blood 11/06/2024 5:21 PM CDT 11/06/2024 5:21 PM CDT Satinder Dougherty MD LAB POCT ORDERABLES - D EVICE Final Result [address] [address] * POCT glucose (11/06/2024 12:41 PM CDT) Glucose, POC 147 70 - 199 mg/dL Comment:Testing performed by : [facility], [address] [place] [address]., [address] Blood 11/06/2024 12:4 1 PM CDT 11/06/2024 12:41 PM CDT Satinder Dougherty MD LAB POCT ORDERABLES - D EVICE Final Result Performing Organization Address City/[facility] Co de Phone Number MARCELINO [address] [place] [address] * eGFR (11/06/2024 12:34 PM CDT) [facility] eGFR 88 >=60 mL/min/1. 73 m2 [...] was last reviewed 2021. Testing performed by: [facility], [address] [place] [address]., [address] Blood 11/06/2024 12:3 4 PM CDT 11/06/2024 12:50 PM CDT Satinder Dougherty MD LAB BLOOD ORDERABLES Fi nal Result Performing Organization Address City/[facility]/ZIP Co de Phone Number MARCELINO [address] [place] [address] * eGFR (11/06/2024 12:34 PM CDT) eGFR [...] was last reviewed 2021. Testing performed by: [address] [address] Blood 11/06/2024 12:3 4 PM CDT 11/06/2024 12:50 PM CDT Satinder Dougherty MD LAB BLOOD ORDERABLES Fi nal Result [facility] [address] [facility] Department of Laboratories [place], [place] [id number] * (ABNORMAL) Differential, auto (11/06/2024 12:34 PM CDT) Neutrophil abs 8.3(H) 1.5 - 6.5 K/cumm Comment:Testing performed by : [address] [address] Imm gran abs 0.1 0.0 - 0.1 K/cumm MARCELINO Comment:Testing performed by : [address] [address] Lymphocyte abs 1.1 0.8 - 3.3 K/cumm MARCELINO Comment:Testing performed by : [address] [address] Monocyte abs 0.9(H) 0.2 - 0.8 K/cumm [facility] Comment:Testing performed by : [address] [address] Eosinophil abs 0.1 0.0 - 0.5 K/cumm [facility] Comment:Testing performed by : [address] [address] Basophil abs 0.1 0.0 - 0.1 K/cumm [facility] Comment:Testing performed by : [address] [address] Neutrophil pct 79.3 % [facility] Comment: Interpretive Data Percent cell count reference ranges are not reported, since discordance with absolute values may lead to misinterpretation of CBC data. Current Interpretive Data was last revised on 2017. Testing performed by: [address] [address] Imm gran pct 1.0 % [facility] Comment: Interpretive Data Percent cell count reference ranges are not reported, since discordance with absolute values may lead to misinterpretation of CBC data. Current Interpretive Data was last revised on 2017. Testing performed by: [address] [address] Lymphocyte pct 10.2 % [facility] Comment: Interpretive Data Percent cell count reference ranges are not reported, since discordance with absolute values may lead to misinterpretation of CBC data. Current Interpretive Data was last revised on 2017. Testing performed by: [address] [address] Monocyte pct 8.5 % [facility] Comment: Interpretive Data Percent cell count reference ranges are not reported, since discordance with absolute values may lead to misinterpretation of CBC data. Current Interpretive Data was last revised on 2017. Testing performed by: [address] [address] Eosinophil pct 0.5 % [facility] Comment: Interpretive Data Percent cell count reference ranges are not reported, since discordance with absolute values may lead to misinterpretation of CBC data. Current Interpretive Data was last revised on 2017. Testing performed by: [address] [address] Basophil pct 0.5 % MARCELINO HAYWOOD Comment: Interpretive Data Percent cell count reference ranges are not reported, since discordance with absolute values may lead to misinterpretation of CBC data. Current Interpretive Data was last revised on 2017. Testing performed by: [address] [address] Blood 11/06/2024 12:3 4 PM CDT 11/06/2024 12:50 PM CDT us Ananya MEANS LAB BLOOD ORDERABLES Final Re sult MARCELINO [facility] Department [place] [address] * (ABNORMAL) CBC with auto differential (11/06/2024 12:34 PM CDT) WBC 10.4(H) 3.8 - 9.9 K/cumm Comment:Testing performed by : [address] [address] Hgb 15.1 11.9 - 15.5 g/dL MARCELINO HAYWOOD Comment:Testing performed by : [address] [address] Hct 47.3(H) 35.6 - 45.5 % MARCELINO HAYWOOD Comment:Testing performed by : [address] [address] Plt 313 150 - 400 K/cumm MARCELINO HAYWOOD Comment:Testing performed by : [address] [address] MPV 10.9 9.1 - 12.3 fL MARCELINO HAYWOOD Comment:Testing performed by : [address] [address] RBC 5.64(H) 3.90 - 5.20 M/cumm MARCELINO HAYWOOD Comment:Testing performed by : [address] [address] MCV 83.9 81.3 - 96.4 fL MARCELINO HAYWOOD Comment:Testing performed by : [facility], [address] [place] [address]., [address] MCH 26.8(L) 27.1 - 33.3 pg MARCELINO HAYWOOD Comment:Testing performed by : [address] [address] MCHC 31.9(L) 32.3 - 35.7 g/dL MARCELINO HAYWOOD Comment:Testing performed by : [address], [address] RDW CV 18.0(H) 11.1 - 14.9 % MARCELINO Comment:Testing performed by : [address], [address] RDW SD 51.9(H) 35.7 - 48.1 fL MARCELINO Comment:Testing performed by : [address], [address] NRBC abs 0.00 0.00 - 0.01 K/cumm MARCELINO Comment:Testing performed by : [address], [address] Blood 11/06/2024 12:3 4 PM CDT 11/06/2024 12:50 PM CDT us Ananya MEANS LAB BLOOD ORDERABLES Final Re sult Performing Organization Address [facility]/ZIP Co de Phone Number [facility] [address] [facility] Department [place] [address] * Magnesium (11/06/2024 12:34 PM CDT) Magnesium 1.4 1.4 - 2.5 mg/dL Comment:Testing performed by : [address] [address] Blood 11/06/2024 12:3 4 PM CDT 11/06/2024 12:50 PM CDT us Satinder Dougherty MD LAB BLOOD ORDERABLES Fi nal Result Performing Organization Address City/[facility]/ZIP Co de Phone Number MARCELINO [address] [facility] Department [place] [address] * Creatinine (11/06/2024 12:34 PM CDT) Pathologist [facility] Creatinine 0.60 0.60 - 1.10 mg/dL Comment:Testing performed by : [address] [address] Blood 11/06/2024 12:3 4 PM CDT 11/06/2024 12:50 PM CDT us Satinder Dougherty MD LAB BLOOD ORDERABLES Fi nal Result MARCELINO [address] [facility] Department [place] [address] * (ABNORMAL) Basic metabolic panel (11/06/2024 12:34 PM CDT) [facility] Sodium 142 135 - 145 mmol/L Comment:Testing performed by : [address] [address] Potassium, pl 2.9(L) 3.3 - 4.9 mmol/L MARCELINO Comment: Hemolyzed; Potassium value may be falsely elevated by as much as 1.0 mmol/L. Suggest redraw and reanalysis. Testing performed by: [address] [address] Chloride 101 97 - 110 mmol/L MARCELINO Comment:Testing performed by : [address] [address] CO2 20(L) 22 - 32 mmol/L MARCELINO Comment:Testing performed by : [address] [address] Anion gap 21(H) 2 - 15 mmol/L MARCELINO Comment:Testing performed by : [address] [address] BUN 9 6 - 25 mg/dL MARCELINO Comment:Testing performed by : [address] [address] Creatinine 0.64 0.60 - 1.10 mg/dL MARCELINO HAYWOOD Comment:Testing performed by : [address] [address] Glucose 164 70 - 199 mg/dL MARCELINO [...] was last revised 2022. Testing performed by: [address] [address] Calcium 10.2 8.5 - 10.3 mg/dL MARCELINO Comment:Testing performed by : [address] [address] Blood 11/06/2024 12:3 4 PM CDT 11/06/2024 12:50 PM CDT us Satinder Dougherty MD LAB BLOOD ORDERABLES Fi nal Result MARCELINO [address] [facility] Department of Laboratories [place], [place] [id number] * (ABNORMAL) POC Blood Gas and Chemistries, Arterial - (11/06/2024 9:08 AM CDT) Pathologist [facility] pH, art POC 7.54(H) 7.35 - 7.45 Comment:Testing performed by : [address] [address] pCO2, art POC 28(L) 35 - 45 mmHg MARCELINO HAYWOOD Comment:Testing performed by : [address] [address] pO2, art POC 95 83 - 108 mmHg MARCELINO Comment:Testing performed by : [address] [address] HCO3, art (Calc) POC 24 20 - 30 mmol/L MARCELINO HAYWOOD Comment:Testing performed by : [facility], [address] [place] [address]., [address] Base excess, art POC 2 mmol/L MARCELINO HAYWOOD Comment: Interpretive Data No reference range established. Current interpretive data was last revised 2020. Testing performed by: [facility], [address] [place] [address]., [address] Blood 11/06/2024 9:08 AM CDT 11/06/2024 9:08 AM CDT us Satinder Dougherty MD LAB POCT ORDERABLES - D EVICE Final Result MARCELINO [address] [facility] Department [place] [address] * XR Chest 1 View (11/06/2024 9:08 [...] Layla Ballard D.O. PS: PS Report ID: [id number] Reading Location: [id number] Procedure Note Layla Ballard DO - 11/06/2024 EXAM DESCRIPTION: XR CHEST [...] Layla Ballard D.O. PS: PS Report ID: [id number] Reading Location: [place] [address] Satinder Dougherty MD IMG XR PROCEDURES Final Result * POCT glucose (11/06/2024 8:29 AM CDT) Glucose, POC 132 70 - 199 mg/dL Comment:Testing performed by : [facility], [address] [place] [address]., [address] Blood 11/06/2024 8:29 AM CDT 11/06/2024 8:29 AM CDT Satinder Dougherty MD LAB POCT ORDERABLES - D EVICE Final Result MARCELINO [address] [facility] Department [place] [address] * POCT glucose (11/06/2024 4:46 AM CDT) Glucose, POC 155 70 - 199 mg/dL Comment:Testing performed by : [address] [address] Glucose comment 1 Use This Result MARCELINO HAYWOOD Comment:Testing performed by : [address] [address] Blood 11/06/2024 4:46 AM CDT 11/06/2024 4:46 AM CDT Satinder Dougherty MD LAB POCT ORDERABLES - D EVICE Final Result Performing Organization Address [facility] de Phone Number MARCELINO [address] [place] [address] * POCT glucose (11/06/2024 12:07 AM CDT) Glucose, POC 140 70 - 199 mg/dL Comment:Testing performed by : [address] [address] Glucose comment 1 Use This Result MARCELINO Comment:Testing performed by : [address] [address] Blood 11/06/2024 12:0 7 AM CDT 11/06/2024 12:07 AM CDT Satinder Dougherty MD LAB POCT ORDERABLES - D EVICE Final Result Performing Organization Address [facility] de Phone Number MARCELINO [address] [address] * POCT glucose (11/05/2024 9:33 PM CDT) Glucose, POC 127 70 - 199 mg/dL Comment:Testing performed by : [address] [address] Glucose comment 1 Use This Result MARCELINO Comment:Testing performed by : [address] [address] Blood 11/05/2024 9:33 PM CDT 11/05/2024 9:33 PM CDT Satinder Dougherty MD LAB POCT ORDERABLES - D EVICE Final Result Performing Organization Address [facility]/ZIP Co de Phone Number MARCELINO [address] [facility] Department [place] [address] * POCT glucose (11/05/2024 4:12 PM CDT) Glucose, POC 140 70 - 199 mg/dL Comment:Testing performed by : [facility], [address] [place] [address]., [address] Blood 11/05/2024 4:12 PM CDT 11/05/2024 4:12 PM CDT us Satinder Dougherty MD LAB POCT ORDERABLES - D VLADIMIR Final Result Performing Organization Address [facility] Co de Phone Number MARCELINO [address] [facility] Department [place] [address] * MRI Brain WO Contrast (11/05/2024 1:10 [...] Wilfredo Jonas D.O. AP: AP Report ID: [id number] Reading Location: [place] [address] Procedure Note Wilfredo Jonas, DO - 11/05/2024 EXAM DESCRIPTION: MRI BRAIN WO CONTRAST REASON FOR STUDY: Mental status change, unknown cause Mental status change, unknown cause. Best obtained imaging due to patient movement and breathing TECHNIQUE: Multiplanar imaging includes non-contrasted T1, T2, FLAIR, and diffusion with ADC map sequences. Additional sequence(s) sensitive [employer]. Images stored on PACS. COMPARISON: MRI brain [...] mandible.There are bilateral mandibular postoperative changes. Rounded [id number] along the expected location of the mandibular [...] Wilfredo Jonas D.O. AP: KEVIN Report ID: [id number] Reading Location: [id number] Arsh Ruby MD IMG MRI PROCEDURES Fi [...] and facet arthropathy with severe left and kvuh-rb-lcsnrzrk right neural foraminal narrowing. C4-C5: Retrolisthesis of [...] severe and additional findings as above. 3. Uxws-jcdamku-lvfq-right posterior paraspinal soft tissue STIR hyperintense signal on both sides is nonspecific and could reflect a strain or myositis. Request clinical correlation. 4. Recent cervical spine imaging is not available for comparison. An addendum can be made once priors are provided. THIS IS AN ELECTRONICALLY VERIFIED FINAL REPORT 11/05/2024 2:14 PM - Electronically signed by Wilfredo Jonas D.O. AP: AP Report ID: [id number] Reading Location: [id number] Procedure Note Wilfredo Jonas, DO - 11/05/2024 [...] spurringand facet arthropathy with severe left and zdra-ox-onpqbwnq right neuralforaminal narrowing. C4-C5: Retrolisthesis of C4 [...] severe and additional findings as above. 3. Dzct-ojewfdf-ihcn-right posterior paraspinal soft tissue STIR hyperintense signal on both sides is nonspecific and could reflect astrain or myositis. Request clinical correlation. 4. Recent cervical spine imaging is not available for comparison. An addendum can be made once priors are provided. THIS IS AN ELECTRONICALLY VERIFIED FINAL REPORT 11/05/2024 2:14 PM - Electronically signed by Wilfredo Jonas D.O. AP: AP Report ID: [id number] Reading Location: [place] [address] Arsh Ruby MD IM MRI PROCEDURES Fi nal Result * POCT glucose (11/05/2024 8:11 AM CDT) [facility] Signature Glucose, POC 146 70 - 199 mg/dL Comment:Testing performed by : [address] [address] Glucose comment 1 Use This Result MARCELINO Comment:Testing performed by : [address] [address] Blood 11/05/2024 8:11 AM CDT 11/05/2024 8:11 AM CDT Satinder Dougherty MD LAB POCT ORDERABLES - D EVICE Final Result Performing Organization Address [facility] de Phone Number MARCELINO [address] [place] [address] * POCT glucose (11/05/2024 5:56 AM CDT) [facility] Glucose, POC 147 70 - 199 mg/dL Comment:Testing performed by : [address] [address] Glucose comment 1 Use This Result MARCELINO HAYWOOD Comment:Testing performed by : [address] [address] Blood 11/05/2024 5:56 AM CDT 11/05/2024 5:56 AM CDT Satinder Dougherty MD LAB POCT ORDERABLES - D EVICE Final Result Performing Organization Address [facility] de Phone Number OR[address] [place] [address] * (ABNORMAL) Differential, auto (11/05/2024 4:52 AM CDT) [facility] Neutrophil abs 7.5(H) 1.5 - 6.5 K/cumm Comment:Testing performed by : [address] [address] Imm gran abs 0.1 0.0 - 0.1 K/cumm MARCELINO Comment:Testing performed by : [address] [address] Lymphocyte abs 0.9 0.8 - 3.3 K/cumm MARCELINO Comment:Testing performed by : [address] [address] Monocyte abs 1.0(H) 0.2 - 0.8 K/cumm MARCELINO Comment:Testing performed by : [address] [address] Eosinophil abs 0.2 0.0 - 0.5 K/cumm MARCELINO Comment:Testing performed by : [address] [address] Basophil abs 0.0 0.0 - 0.1 K/cumm MARCELINO Comment:Testing performed by : [address] [address] Neutrophil pct 77.6 % MARCELINO Comment: Interpretive Data Percent cell count reference ranges are not reported, since discordance with absolute values may lead to misinterpretation of CBC data. Current Interpretive Data was last revised on 2017. Testing performed by: [address] [address] Imm gran pct 0.6 % MARCELINO Comment: Interpretive Data Percent cell count reference ranges are not reported, since discordance with absolute values may lead to misinterpretation of CBC data. Current Interpretive Data was last revised on 2017. Testing performed by: [address] [address] Lymphocyte pct 9.6 % MARCELINO Comment: Interpretive Data Percent cell count reference ranges are not reported, since discordance with absolute values may lead to misinterpretation of CBC data. Current Interpretive Data was last revised on 2017. Testing performed by: [address] [address] Monocyte pct 10.3 % MARCELINO Comment: Interpretive Data Percent cell count reference ranges are not reported, since discordance with absolute values may lead to misinterpretation of CBC data. Current Interpretive Data was last revised on 2017. Testing performed by: [address] [address] Eosinophil pct 1.6 % MARCELINO Comment: Interpretive Data Percent cell count reference ranges are not reported, since discordance with absolute values may lead to misinterpretation of CBC data. Current Interpretive Data was last revised on 2017. Testing performed by: [address] [address] Basophil pct 0.3 % MARCELINO Comment: Interpretive Data Percent cell count reference ranges are not reported, since discordance with absolute values may lead to misinterpretation of CBC data. Current Interpretive Data was last revised on 2017. Testing performed by: [address] [address] Blood 11/05/2024 4:52 AM CDT 11/05/2024 5:31 AM CDT us Ananya MEANS LAB BLOOD ORDERABLES Final Re sult [facility] [address] [facility] [place] [address] * (ABNORMAL) CBC with auto differential (11/05/2024 4:52 AM CDT) WBC 9.6 3.8 - 9.9 K/cumm Comment:Testing performed by : [address] [address] Hgb 12.0 11.9 - 15.5 g/dL MARCELINO Comment:Testing performed by : [address] [address] Hct 38.7 35.6 - 45.5 % MARCELINO Comment:Testing performed by : [address] [address] Plt 374 150 - 400 K/cumm MARCELINO Comment:Testing performed by : [address] [address] MPV 10.5 9.1 - 12.3 fL MARCELINO Comment:Testing performed by : [address] [address] RBC 4.57 3.90 - 5.20 M/cumm MARCELINO Comment:Testing performed by : [address] [address] MCV 84.7 81.3 - 96.4 fL MARCELINO Comment:Testing performed by : [address] [address] MCH 26.3(L) 27.1 - 33.3 pg MARCELINO HAYWOOD Comment:Testing performed by : [address] [address] MCHC 31.0(L) 32.3 - 35.7 g/dL MARCELINO HAYWOOD Comment:Testing performed by : [address] [address] RDW CV 16.9(H) 11.1 - 14.9 % MARCELINO Comment:Testing performed by : [address] [address] RDW SD 52.2(H) 35.7 - 48.1 fL MARCELINO Comment:Testing performed by : [address] [address] NRBC abs 0.00 0.00 - 0.01 K/cumm MARCELINO Comment:Testing performed by : [address] [address] Blood 11/05/2024 4:52 AM CDT 11/05/2024 5:31 AM CDT us Ananya MEANS LAB BLOOD ORDERABLES Final Re sult Performing Organization Address City/[facility] Co de Phone Number MARCELINO [address] [place] [address] * POCT glucose (11/05/2024 1:22 AM RETAIL ANALYTICS MANAGER) Glucose, POC 138 70 - 199 mg/dL Comment:Testing performed by : [address], [address] Glucose comment 1 Use This Result MARCELINO Comment:Testing performed by : [address], [address] Blood 11/05/2024 1:22 AM RETAIL ANALYTICS MANAGER 11/05/2024 1:22 AM RETAIL ANALYTICS MANAGER us Satinder Dougherty MD LAB POCT ORDERABLES - D VLADIMIR Final Result Performing Organization Address City/[facility] Co de Phone Number MARCELINO [address] [place] [address] * POCT glucose (11/04/2024 10:34 PM RETAIL ANALYTICS MANAGER) Glucose, POC 150 70 - 199 mg/dL Comment:Testing performed by : [address] [address] Glucose comment 1 Use This Result MARCELINO Comment:Testing performed by : [address] [address] Blood 11/04/2024 10:3 4 PM RETAIL ANALYTICS MANAGER 11/04/2024 10:34 PM RETAIL ANALYTICS MANAGER us Satinder Dougherty MD LAB POCT ORDERABLES - D EVICE Final Result MARCELINO [address] [facility] Department [place] [address] * (ABNORMAL) Urinalysis reflex to microscopic and culture Urine, bladder (11/04/2024 6:17 PM RETAIL ANALYTICS MANAGER) Color, ur Yellow Yellow Comment:Testing performed by : [address] [address] Clarity, ur Cloudy(A) Clear MARCELINO Comment:Testing performed by : [address] [address] Specific gravity, ur 1.017 1.003 - 1.030 MARCELINO Comment:Testing performed by : [address] [address] pH, urine 6.5 MARCELINO Comment: Interpretive Data U rine pH is affected by diet, medications, systemic acid-base disturbances, and renal tubular function. pH may affect urinary stone formation. For example, urine pH below 6.0 may help reduce the tendency for calcium phosphate stones and pH greater than 6.0 may reduce the tendency for uric acid stone formation. Source: [facility] Current Interpretive Data was last revised on 2017 Testing performed by: [address] [address] Protein, ur ql 2+(A) Negative MARCELINO Comment:Testing performed by : [address] [address] Glucose, ur ql 1+(A) Negative MARCELINO Comment:Testing performed by : [address] [address] Ketones, ur 2+(A) Negative MARCELINO HAYWOOD Comment:Testing performed by : [address] [address] Bilirubin, ur Negative Negative MARCELINO HAYWOOD Comment:Testing performed by : [address], [place]., [address] Blood, ur 3+(A) Negative MARCELINO HAYWOOD Comment:Testing performed by : [address], [place]., [address] Urobilinogen, ur 2.0(A) <2.0 mg/dL MARCELINO Comment:Testing performed by : [address], [place]., [address] Nitrite, ur Negative Negative MARCELINO Comment:Testing performed by : [address] [address] Leukocyte esterase, ur 4+(A) Negative MARCELINO HAYWOOD Comment:Testing performed by : [address] [address] UA reflex comment Reflex to microscopic UA will be performed. MARCELINO Comment:Testing performed by : [address] [address] Urine, bladder 11/04/2024 6: 17 PM RETAIL ANALYTICS MANAGER 11/04/2024 6:21 PM RETAIL ANALYTICS MANAGER Narrative MARCELINO - 11/04/2024 6:24 PM RETAIL ANALYTICS MANAGER Straight catheterization please us Satinder Dougherty MD LAB MICROBIOLOGY - [facility] ORDERABLES Final Result Performing Organization Address City/State/[facility] Co de Phone Number MARCELINO [address] [facility] Department [place] [address] * (ABNORMAL) Urinalysis, microscopic only (11/04/2024 6:17 PM RETAIL ANALYTICS MANAGER) WBC, ur >50(A) 0 - 5 /HPF Comment:Testing performed by : [address], [place]., [address] RBC, ur >50(A) 0 - 2 /HPF MARCELINO Comment:Testing performed by : [address] [address] Bacteria, ur 4+(A) MARCELINO HAYWOOD Comment:Testing performed by : [facility], [address] [place] [address]., [address] Mucous, ur Present(A) MARCELINO HAYWOOD Comment:Testing performed by : [address] [address] Culture Reflex Comment Reflex to urine culture will be performed. MARCELINO Comment:Testing performed by : [address] [address] Urine, bladder 11/04/2024 6: 17 PM RETAIL ANALYTICS MANAGER 11/04/2024 6:21 PM RETAIL ANALYTICS MANAGER Satinder Dougherty MD LAB URINE ORDERABLES Fi nal Result Performing Organization Address [facility] Co de Phone Number [facility]INO [facility] [place] [address] * (ABNORMAL) Urine culture Urine, bladder (11/04/2024 6:17 PM RETAIL ANALYTICS MANAGER) Report Final Report: Greater than or equal to 100,000 colonies/mL of Enterococcus faecium (.) Comment:Testing performed by : [facility], [address] [facility], [place]., [address] Organism ENTEROCOCCUS FAECIUM MARCELINO Urine, bladder 11/04/2024 6: 17 PM RETAIL ANALYTICS MANAGER 11/04/2024 9:45 PM RETAIL ANALYTICS MANAGER Narrative MARCELINO - 11/08/2024 4:05 PM CDT Urine culture reflexed based upon urinalysis results. Testing performed by [facility] ([phone]) Organism Antibiotic Method Susceptibility Enterococcus faecium Daptomycin (VLADIMIR) (VLADIMIR) INTERPRETA TION Susceptible Dose-dependent Enterococcus faecium Ampicillin (VLADIMIR) INTERPRETATION Resistant Enterococcus faecium Vancomycin (VLADIMIR) INTERPRETATION Resistant Enterococcus faecium Linezolid (VLADIMIR) INTERPRETATION Susceptible Enterococcus faecium Doxycycline (VLADIMIR) INTERPRETATION Resistant Enterococcus faecium Nitrofurantoin (VLADIMIR) INTERPRETATI ON Resistant Satinder Dougherty MD LAB MICROBIOLOGY - GENE RAL ORDERABLES Final Result Performing Organization Address City/[facility]/ZIP Co de Phone Number MARCELINO [address] [address] * POCT glucose (11/04/2024 5:07 PM RETAIL ANALYTICS MANAGER) Pathologist [facility] Glucose, POC 162 70 - 199 mg/dL Comment:Testing performed by : [address] [address] Blood 11/04/2024 5:07 PM RETAIL ANALYTICS MANAGER 11/04/2024 5:07 PM RETAIL ANALYTICS MANAGER Satinder Dougherty MD LAB POCT ORDERABLES - D EVICE Final Result Performing Organization Address [facility] Co de Phone Number [address] [address] * (ABNORMAL) aPTT (11/04/2024 2:21 PM RETAIL ANALYTICS MANAGER) [facility] aPTT 62(H) 22 - 37 sec Comment: Ref Range High Interpretive data aPTT test has not been evaluated for monitoring heparin therapy. The anti-Xa is the preferred test. Current interpretive data was last revised on 2019. Testing performed by: [address] [address] Blood 11/04/2024 2:21 PM RETAIL ANALYTICS MANAGER 11/04/2024 2:26 PM RETAIL ANALYTICS MANAGER Satinder Dougherty MD LAB BLOOD ORDERABLES Fi nal Result Performing Organization Address City/[facility]/ZIP Co de Phone Number [address] [address] * (ABNORMAL) Differential, auto (11/04/2024 8:54 AM RETAIL ANALYTICS MANAGER) Pathologist [facility] Neutrophil abs 7.5(H) 1.5 - 6.5 K/cumm Comment:Testing performed by : [address] [address] Imm gran abs 0.1 0.0 - 0.1 K/cumm MARCELINO Comment:Testing performed by : [address] [address] Lymphocyte abs 1.0 0.8 - 3.3 K/cumm [facility] Comment:Testing performed by : [address] [address] Monocyte abs 0.8 0.2 - 0.8 K/cumm [facility] Comment:Testing performed by : [address], [place]., [address] Eosinophil abs 0.1 0.0 - 0.5 K/cumm [facility] Comment:Testing performed by : [address], [place]., [address] Basophil abs 0.0 0.0 - 0.1 K/cumm [facility] Comment:Testing performed by : [address] [address] Neutrophil pct 79.1 % [facility] Comment: Interpretive Data Percent cell count reference ranges are not reported, since discordance with absolute values may lead to misinterpretation of CBC data. Current Interpretive Data was last revised on 2017. Testing performed by: [address] [address] Imm gran pct 0.6 % [facility] Comment: Interpretive Data Percent cell count reference ranges are not reported, since discordance with absolute values may lead to misinterpretation of CBC data. Current Interpretive Data was last revised on 2017. Testing performed by: [address] [address] Lymphocyte pct 10.4 % [facility] Comment: Interpretive Data Percent cell count reference ranges are not reported, since discordance with absolute values may lead to misinterpretation of CBC data. Current Interpretive Data was last revised on 2017. Testing performed by: [address] [address] Monocyte pct 8.3 % [facility] Comment: Interpretive Data Percent cell count reference ranges are not reported, since discordance with absolute values may lead to misinterpretation of CBC data. Current Interpretive Data was last revised on 2017. Testing performed by: [address] [address] Eosinophil pct 1.3 % [facility] Comment: Interpretive Data Percent cell count reference ranges are not reported, since discordance with absolute values may lead to misinterpretation of CBC data. Current Interpretive Data was last revised on 2017. Testing performed by: [address] [address] Basophil pct 0.3 % MARCELINO HAYWOOD Comment: Interpretive Data Percent cell count reference ranges are not reported, since discordance with absolute values may lead to misinterpretation of CBC data. Current Interpretive Data was last revised on 2017. Testing performed by: [address] [address] Blood 11/04/2024 8:54 AM RETAIL ANALYTICS MANAGER 11/04/2024 9:10 AM RETAIL ANALYTICS MANAGER us Ananya MEANS LAB BLOOD ORDERABLES Final Re sult MARCELINO [facility] Department [place] [address] * (ABNORMAL) CBC with auto differential (11/04/2024 8:54 AM RETAIL ANALYTICS MANAGER) WBC 9.5 3.8 - 9.9 K/cumm Comment:Testing performed by : [address] [address] Hgb 13.1 11.9 - 15.5 g/dL MARCELINO HAYWOOD Comment:Testing performed by : [address] [address] Hct 41.5 35.6 - 45.5 % MARCELINO HAYWOOD Comment:Testing performed by : [address] [address] Plt 387 150 - 400 K/cumm MARCELINO HAYWOOD Comment:Testing performed by : [address] [address] MPV 10.4 9.1 - 12.3 fL MARCELINO HAYWOOD Comment:Testing performed by : [address] [address] RBC 4.89 3.90 - 5.20 M/cumm MARCELINO HAYWOOD Comment:Testing performed by : [address] [address] MCV 84.9 81.3 - 96.4 fL MARCELINO Comment:Testing performed by : [address] [address] MCH 26.8(L) 27.1 - 33.3 pg MARCELINO Comment:Testing performed by : [address] [address] MCHC 31.6(L) 32.3 - 35.7 g/dL MARCELINO Comment:Testing performed by : [address] [address] RDW CV 16.9(H) 11.1 - 14.9 % MARCELINO Comment:Testing performed by : [address] [address] RDW SD 52.2(H) 35.7 - 48.1 fL MARCELINO Comment:Testing performed by : [address] [address] NRBC abs 0.00 0.00 - 0.01 K/cumm MARCELINO Comment:Testing performed by : [address] [address] Blood 11/04/2024 8:54 AM RETAIL ANALYTICS MANAGER 11/04/2024 9:10 AM RETAIL ANALYTICS MANAGER us Ananya MEANS LAB BLOOD ORDERABLES Final Re sult [facility] [address] [facility] Department of Laboratories [place], [place] [id number] * (ABNORMAL) aPTT (11/04/2024 8:54 AM RETAIL ANALYTICS MANAGER) aPTT 69(H) 22 - 37 sec Comment: Ref Range High Interpretive data aPTT test has not been evaluated for monitoring heparin therapy. The anti-Xa is the preferred test. Current interpretive data was last revised on 2019. Testing performed by: [address] [address] Blood 11/04/2024 8:54 AM RETAIL ANALYTICS MANAGER 11/04/2024 9:10 AM RETAIL ANALYTICS MANAGER Jarrett Hurley MD LAB BLOOD ORDERABLES Fi nal Result Performing Organization Address [facility] de Phone Number [address] [address] * POCT glucose (11/04/2024 8:47 AM RETAIL ANALYTICS MANAGER) Glucose, POC 153 70 - 199 mg/dL Comment:Testing performed by : [address] [address] Glucose comment 1 Use This Result MARCELINO Comment:Testing performed by : [address] [address] Blood 11/04/2024 8:47 AM RETAIL ANALYTICS MANAGER 11/04/2024 8:47 AM RETAIL ANALYTICS MANAGER Satinder Dougherty MD LAB POCT ORDERABLES - D EVICE Final Result Performing Organization Address [facility] de Phone Number [address] [address] * POCT glucose (11/04/2024 3:35 AM RETAIL ANALYTICS MANAGER) Glucose, POC 162 70 - 199 mg/dL Comment:Testing performed by : [address] [address] Glucose comment 1 Use This Result MARCELINO Comment:Testing performed by : [address] [address] Blood 11/04/2024 3:35 AM RETAIL ANALYTICS MANAGER 11/04/2024 3:35 AM RETAIL ANALYTICS MANAGER Satinder Dougherty MD LAB POCT ORDERABLES - D EVICE Final Result Performing Organization Address [facility] de Phone Number [address] [address] * (ABNORMAL) aPTT (11/04/2024 12:10 AM RETAIL ANALYTICS MANAGER) aPTT 52(H) 22 - 37 sec Comment: Ref Range High Interpretive data aPTT test has not been evaluated for monitoring heparin therapy. The anti-Xa is the preferred test. Current interpretive data was last revised on 2019. Testing performed by: [address] [address] Blood 11/04/2024 12:1 0 AM RETAIL ANALYTICS MANAGER 11/04/2024 12:13 AM RETAIL ANALYTICS MANAGER Jarrett Hurley MD LAB BLOOD ORDERABLES Fi nal Result Performing Organization Address [facility] Co de Phone Number [address] [address] * POCT glucose (11/03/2024 11:02 PM RETAIL ANALYTICS MANAGER) Glucose, POC 135 70 - 199 mg/dL Comment:Testing performed by : [address] [address] Glucose comment 1 Use This Result MARCELINO Comment:Testing performed by : [address] [address] Blood 11/03/2024 11:0 2 PM RETAIL ANALYTICS MANAGER 11/03/2024 11:02 PM RETAIL ANALYTICS MANAGER Satinder Dougherty MD LAB POCT ORDERABLES - D EVICE Final Result Performing Organization Address [facility] Co de Phone Number [address] [place] [address] * POCT glucose (11/03/2024 7:11 PM RETAIL ANALYTICS MANAGER) Glucose, POC 148 70 - 199 mg/dL Comment:Testing performed by : [address] [address] Glucose comment 1 Use This Result MARCELINO Comment:Testing performed by : [address] [address] Blood 11/03/2024 7:11 PM RETAIL ANALYTICS MANAGER 11/03/2024 7:11 PM RETAIL ANALYTICS MANAGER Satinder Dougherty MD LAB POCT ORDERABLES - D EVICE Final Result Performing Organization Address [facility] Co de Phone Number MARCELINO [address] [place] [address] * (ABNORMAL) aPTT (11/03/2024 4:26 PM RETAIL ANALYTICS MANAGER) [facility] aPTT 105(H) 22 - 37 sec Comment: Ref Range High Interpretive data aPTT test has not been evaluated for monitoring heparin therapy. The anti-Xa is the preferred test. Current interpretive data was last revised on 2019. Testing performed by: [address] [address] Blood 11/03/2024 4:26 PM RETAIL ANALYTICS MANAGER 11/03/2024 4:32 PM RETAIL ANALYTICS MANAGER Satinder Dougherty MD LAB BLOOD ORDERABLES Fi nal Result Performing Organization Address [facility] de Phone Number MARCELINO [address] [address] * POCT glucose (11/03/2024 4:01 PM RETAIL ANALYTICS MANAGER) [facility] Glucose, POC 133 70 - 199 mg/dL Comment:Testing performed by : [address] [address] Glucose comment 1 Use This Result MARCELINO HAYWOOD Comment:Testing performed by : [address] [address] Glucose comment 2 RN/MD Notified MARCELINO HAYWOOD Comment:Testing performed by : [address] [address] Blood 11/03/2024 4:01 PM RETAIL ANALYTICS MANAGER 11/03/2024 4:01 PM RETAIL ANALYTICS MANAGER Satinder Dougherty MD LAB POCT ORDERABLES - D EVICE Final Result Performing Organization Address [facility] Co de Phone Number MARCELINO [address] [address] * POCT glucose (11/03/2024 11:57 AM RETAIL ANALYTICS MANAGER) Pathologist [facility] Glucose, POC 142 70 - 199 mg/dL Comment:Testing performed by : [address] [address] Glucose comment 1 Use This Result MARCELINO HAYWOOD Comment:Testing performed by : [address] [address] Glucose comment 2 RN/MD Notified MARCELINO HAYWOOD Comment:Testing performed by : [address] [address] Blood 11/03/2024 11:5 7 AM RETAIL ANALYTICS MANAGER 11/03/2024 11:57 AM RETAIL ANALYTICS MANAGER us Satinder Dougherty MD LAB POCT ORDERABLES - D EVICE Final Result MARCELINO [address] [facility] Department [place] [address] * TRANSTHORACIC ECHO (TTE) LIMITED/FOLLOW UP WO DOPPLER/CF W CONTRAST (11/03/2024 11:55 AM RETAIL ANALYTICS MANAGER) [facility] LV EF 55-60 % CONS SCIMAGE Anatomical Region Laterality Modality Ultrasound 11/03/2024 11:4 1 AM RETAIL ANALYTICS MANAGER Narrative 11/03/2024 12:41 PM RETAIL ANALYTICS MANAGER Transthoracic Echocardiographic Report Patient Name: SHARI KAISER M : 1940 (84y 5m) Gender: F Study Date: 11/03/2024 11:41:17 AM Ht(Inch): 66 Wt(Lb): 164 BSA: 1.86 Deliverer Merchandise: Saskia Castanon RDCS Location: [id number] Order Provider: SATINDER DOUGHERTY BMI: 26.47 Ref Provider: SATINDER DOUGHERTY - PROCEDURES: Echocardiographic Report: ([id number]) Limited Echocardiography with contrast, transthoracic, 2D, includes [...] By: Jarrett Hurley MD 11/03/2024 12:40:40 PM RETAIL ANALYTICS MANAGER Procedure Note Jarrett Hurley MD - 11/03/2024 Transthoracic Echocardiographic Report Patient Name: SHARI KAISER M : 1940 (84y 5m) Gender: F Study Date: 11/03/2024 11:41:17 AM Ht(Inch): 66 Wt(Lb): 164 BSA: 1.86 Deliverer Merchandise: Saskia Castanon EDSON Location: [id number] Order Provider:SATINDER DOUGHERTY BMI: 26.47 Ref Provider: SATINDER DOUGHERTY - PROCEDURES: Echocardiographic Report: ([id number]) Limited Echocardiography with contrast,transthoracic, 2D, includes M-mode [...] By: Jarrett Hurley MD 11/03/2024 12:40:40 PM RETAIL ANALYTICS MANAGER us Satinder Dougherty MD CV ECHO PROCEDURES Gena l Result * (ABNORMAL) aPTT (11/03/2024 9:36 AM RETAIL ANALYTICS MANAGER) aPTT 67(H) 22 - 37 sec Comment: Ref Range High Interpretive data aPTT test has not been evaluated for monitoring heparin therapy. The anti-Xa is the preferred test. Current interpretive data was last revised on 2019. Testing performed by: [facility], [address] [place] [address]., [address] Blood 11/03/2024 9:36 AM RETAIL ANALYTICS MANAGER 11/03/2024 9:40 AM RETAIL ANALYTICS MANAGER us Satinder Dougherty MD LAB BLOOD ORDERABLES Fi nal Result Performing Organization Address [facility] Co de Phone Number MARCELINO [address] [address] * POCT glucose (11/03/2024 8:00 AM RETAIL ANALYTICS MANAGER) Glucose, POC 148 70 - 199 mg/dL Comment:Testing performed by : [address] [address] Glucose comment 1 Use This Result MARCELINO Comment:Testing performed by : [address] [address] Glucose comment 2 RN/MD Notified MARCELINO Comment:Testing performed by : [address] [address] Blood 11/03/2024 8:00 AM RETAIL ANALYTICS MANAGER 11/03/2024 8:00 AM RETAIL ANALYTICS MANAGER Satinder Dougherty MD LAB POCT ORDERABLES - D EVICE Final Result Performing Organization Address [facility] de Phone Number [address] [address] * POCT glucose (11/03/2024 4:09 AM RETAIL ANALYTICS MANAGER) Glucose, POC 165 70 - 199 mg/dL Comment:Testing performed by : [address] [address] Glucose comment 1 RN/MD Notified MARCELINO Comment:Testing performed by : [address] [address] Glucose comment 2 Use This Result MARCELINO Comment:Testing performed by : [address] [address] Blood 11/03/2024 4:09 AM RETAIL ANALYTICS MANAGER 11/03/2024 4:09 AM RETAIL ANALYTICS MANAGER Satinder Dougherty MD LAB POCT ORDERABLES - D EVICE Final Result Performing Organization Address City/[facility] Co de Phone Number [address] [address] * Differential, auto (11/03/2024 2:21 AM RETAIL ANALYTICS MANAGER) Neutrophil abs 5.0 1.5 - 6.5 K/cumm Comment:Testing performed by : [address] [address] Imm gran abs 0.0 0.0 - 0.1 K/cumm [facility] Comment:Testing performed by : [address] [address] Lymphocyte abs 1.0 0.8 - 3.3 K/cumm [facility] Comment:Testing performed by : [address] [address] Monocyte abs 0.7 0.2 - 0.8 K/cumm [facility] Comment:Testing performed by : [address] [address] Eosinophil abs 0.3 0.0 - 0.5 K/cumm [facility] Comment:Testing performed by : [address] [address] Basophil abs 0.0 0.0 - 0.1 K/cumm [facility] Comment:Testing performed by : [address] [address] Neutrophil pct 70.9 % [facility] Comment: Interpretive Data Percent cell count reference ranges are not reported, since discordance with absolute values may lead to misinterpretation of CBC data. Current Interpretive Data was last revised on 2017. Testing performed by: [address] [address] Imm gran pct 0.4 % [facility] Comment: Interpretive Data Percent cell count reference ranges are not reported, since discordance with absolute values may lead to misinterpretation of CBC data. Current Interpretive Data was last revised on 2017. Testing performed by: [address] [address] Lymphocyte pct 14.0 % [facility] Comment: Interpretive Data Percent cell count reference ranges are not reported, since discordance with absolute values may lead to misinterpretation of CBC data. Current Interpretive Data was last revised on 2017. Testing performed by: [address] [address] Monocyte pct 10.3 % MARCELINO Comment: Interpretive Data Percent cell count reference ranges are not reported, since discordance with absolute values may lead to misinterpretation of CBC data. Current Interpretive Data was last revised on 2017. Testing performed by: [address] [address] Eosinophil pct 4.0 % MARCELINO Comment: Interpretive Data Percent cell count reference ranges are not reported, since discordance with absolute values may lead to misinterpretation of CBC data. Current Interpretive Data was last revised on 2017. Testing performed by: [address] [address] Basophil pct 0.4 % MARCELINO Comment: Interpretive Data Percent cell count reference ranges are not reported, since discordance with absolute values may lead to misinterpretation of CBC data. Current Interpretive Data was last revised on 2017. Testing performed by: [address] [address] Blood 11/03/2024 2:21 AM RETAIL ANALYTICS MANAGER 11/03/2024 3:01 AM RETAIL ANALYTICS MANAGER us Ananya MEANS LAB BLOOD ORDERABLES Final Re sult [facility] [address] [facility] Department of Laboratories [place], [place] [id number] * (ABNORMAL) CBC with auto differential (11/03/2024 2:21 AM RETAIL ANALYTICS MANAGER) Pathologist [facility] WBC 7.0 3.8 - 9.9 K/cumm Comment:Testing performed by : [address] [address] Hgb 11.3(L) 11.9 - 15.5 g/dL MARCELINO HAYWOOD Comment:Testing performed by : [address] [address] Hct 37.1 35.6 - 45.5 % MARCELINO Comment:Testing performed by : [address] [address] Plt 332 150 - 400 K/cumm MARCELINO HAYWOOD Comment:Testing performed by : [address] [address] MPV 10.1 9.1 - 12.3 fL MARCELINO HAYWOOD Comment:Testing performed by : [address] [address] RBC 4.27 3.90 - 5.20 M/cumm MARCELINO HAYWOOD Comment:Testing performed by : [address] [address] MCV 86.9 81.3 - 96.4 fL MARCELINO Comment:Testing performed by : [address] [address] MCH 26.5(L) 27.1 - 33.3 pg MARCELINO Comment:Testing performed by : [address] [address] MCHC 30.5(L) 32.3 - 35.7 g/dL MARCELINO Comment:Testing performed by : [address] [address] RDW CV 17.1(H) 11.1 - 14.9 % MARCELINO Comment:Testing performed by : [address] [address] RDW SD 54.7(H) 35.7 - 48.1 fL MARCELINO Comment:Testing performed by : [address] [address] NRBC abs 0.00 0.00 - 0.01 K/cumm MARCELINO Comment:Testing performed by : [address] [address] Blood 11/03/2024 2:21 AM RETAIL ANALYTICS MANAGER 11/03/2024 3:01 AM RETAIL ANALYTICS MANAGER us Ananya MEANS LAB BLOOD ORDERABLES Final Re sult [facility] [address] [facility] Department [place] [address] * aPTT (11/03/2024 2:21 AM RETAIL ANALYTICS MANAGER) aPTT 32 22 - 37 sec Comment: Interpretive data aPTT test has not been evaluated for monitoring heparin therapy. The anti-Xa is the preferred test. Current interpretive data was last revised on 2019. Testing performed by: [facility], [address] [place] [address]., [address] Blood 11/03/2024 2:21 AM RETAIL ANALYTICS MANAGER 11/03/2024 2:57 AM RETAIL ANALYTICS MANAGER us Satinder Dougherty MD LAB BLOOD ORDERABLES Fi nal Result MARCELINO [address] [facility] Department [place] [address] * (ABNORMAL) Lipid panel (11/03/2024 2:21 AM RETAIL ANALYTICS MANAGER) Cholesterol 148 30 - 199 mg/dL Comment: [...] last revised on 2018. Testing performed by: [address] [address] Triglycerides 150(H) <=149 mg/dL MARCELINO HAYWOOD Comment: Interpretive Data Ages [...] last revised on 2018. Testing performed by: [address] [address] HDL 34(L) >=40 mg/dL MARCELINO Comment: Interpretive [...] last revised on 2018. Testing performed by: [address] [address] LDL, calculated 88 <=129 mg/dL MARCELINO Comment: [...] last revised on 2024. Testing performed by: [address] [address] Non-HDL Cholesterol 114 mg/dL MARCELINO Comment: Interpretive [...] last revised on 2018. Testing performed by: [address] [address] Chol/HDL ratio 4 MARCELINO Comment:Testing performed by : [address] [address] Blood 11/03/2024 2:21 AM RETAIL ANALYTICS MANAGER 11/03/2024 2:57 AM RETAIL ANALYTICS MANAGER us Ananya MEANS LAB BLOOD ORDERABLES Final Re sult Performing Organization Address [facility] Co de Phone Number [address] [place] [address] * POCT glucose (11/03/2024 12:21 AM RETAIL ANALYTICS MANAGER) [facility] Signature Glucose, POC 143 70 - 199 mg/dL Comment:Testing performed by : [address] [address] Glucose comment 1 Use This Result MARCELINO Comment:Testing performed by : [address] [address] Glucose comment 2 RN/MD Notified MARCELINO Comment:Testing performed by : [address] [address] Blood 11/03/2024 12:2 1 AM RETAIL ANALYTICS MANAGER 11/03/2024 12:21 AM RETAIL ANALYTICS MANAGER us Satinder Dougherty MD LAB POCT ORDERABLES - D EVICE Final Result Performing Organization Address [facility]/ZIP Co de Phone Number [place] [id number] [facility] [place] [address] * POCT glucose (11/02/2024 8:31 PM RETAIL ANALYTICS MANAGER) Glucose, POC 156 70 - 199 mg/dL Comment:Testing performed by : [facility], [address] [place] [address]., [address] Glucose comment 1 Use This Result MARCELINO HAYWOOD Comment:Testing performed by : [facility], [address] [place] [address]., [address] Glucose comment 2 RN/MD Notified MARCELINO HAYWOOD Comment:Testing performed by : [address] [address] Blood 11/02/2024 8:31 PM RETAIL ANALYTICS MANAGER 11/02/2024 8:31 PM RETAIL ANALYTICS MANAGER us Satinder Dougherty MD LAB POCT ORDERABLES - D EVICE Final Result MARCELINO HAYWOOD [address] [facility] [place] [address] * CT Chest Abdomen Pelvis W Contrast (11/02/2024 8:01 PM RETAIL ANALYTICS MANAGER) Anatomical Region Laterality Modality Body N/A Computed Tomogra phy 11/02/2024 10:4 0 PM RETAIL ANALYTICS MANAGER Narrative 11/02/2024 10:59 PM RETAIL ANALYTICS MANAGER EXAM DESCRIPTION: CT CHEST ABDOMEN PELVIS W [...] by Iliana Hannah M.D. SN: Report ID: [id number] Reading Location: [id number] Procedure Note Iliana Hannah MD - 11/02/2024 [...] by Iliana Hannah M.D. SN: Report ID: [id number] Reading Location: [place] [address] PROCEDURES Final Resul t * (ABNORMAL) Troponin T high-sensitivity 6-hour (11/02/2024 7:24 PM RETAIL ANALYTICS MANAGER) Trop T hs 214(C) <=14 ng/L Comment: Critical Result called to and read back by [email or web address], DATE: 2024-11-02 19:53:11 BY: [id number] Interpretive Data For further hscTnT resources including the diagnostic algorithm and an aid in interpretation, copy and paste this link: https://nrl.testcatalog.org/show/hsTrop Current Interpretive Data last revised 2020. Testing performed by: [address] [address] Trop T hs pct delta 35(C) % MARCELINO Comment: Critical Result called to and read back by [email or web address], DATE: 2024-11-02 19:53:11 BY: [id number] Testing performed by: [address] [address] Trop T hs interp Significa nt(C) MARCELINO HAYWOOD Comment: Critical Result called to and read back by [email or web address], DATE: 2024-11-02 19:53:11 BY: [email or web address] Testing performed by: [address] [address] Blood 11/02/2024 7:2 4 PM RETAIL ANALYTICS MANAGER 11/02/2024 7:29 PM RETAIL ANALYTICS MANAGER Narrative MARCELINO - 11/02/2024 7:53 PM RETAIL ANALYTICS MANAGER Critical result called to and read back by [email or web address] (_) on 11/02/2024 19:52:06 CST_ to [id number]_. Gee Yao DO LAB BLOOD ORDERABLES Final Res ult Performing Organization Address City/[facility]/ZIP Co de Phone Number MARCELINO [address] [place] [address] * POCT glucose (11/02/2024 6:48 PM RETAIL ANALYTICS MANAGER) [facility] Signature Glucose, POC 138 70 - 199 mg/dL Comment:Testing performed by : [address] [address] Blood 11/02/2024 6:48 PM RETAIL ANALYTICS MANAGER 11/02/2024 6:48 PM RETAIL ANALYTICS MANAGER Satinder Dougherty MD LAB POCT ORDERABLES - D EVICE Final Result Performing Organization Address City/[facility]/ZIP Co de Phone Number [address] [place] [address] * Blood culture Blood (11/02/2024 5:54 PM RETAIL ANALYTICS MANAGER) Report Final Report: No growth Comment:Testing performed by : [facility], [address] [place]., [address] Blood 11/02/2024 5:54 PM RETAIL ANALYTICS MANAGER 11/02/2024 10:13 PM RETAIL ANALYTICS MANAGER Elisha HAYWOOD - 11/07/2024 7:00 AM CDT From a [...] performance characteristics have been verified by the [facility]. For questions about this culture, contact the Microbiology Laboratory at [phone]. Interpretive data was last revised on 24. Ananya MEANS LAB MICROBIOLOGY - GENERAL OR DERABLES Final Result MARCELINO HAYWOOD [address] [facility] Department [place] [address] * Blood culture Blood (11/02/2024 5:54 PM RETAIL ANALYTICS MANAGER) Report Final Report: No growth Comment:Testing performed by : [facility], [address] [place]., [address] Blood 11/02/2024 5:54 PM RETAIL ANALYTICS MANAGER 11/02/2024 10:13 PM RETAIL ANALYTICS MANAGER Narrative MARCELINO - 11/07/2024 7:00 AM CDT [...] performance characteristics have been verified by the [facility]. For questions about this culture, contact the Microbiology Laboratory at [phone]. Interpretive data was last revised on 24. Ananya MEANS LAB MICROBIOLOGY - GENERAL OR DERABLES Final Result MARCELINO [address] [facility] Department [place] [address] * aPTT (11/02/2024 5:54 PM RETAIL ANALYTICS MANAGER) aPTT 28 22 - 37 sec Comment: Interpretive data aPTT test has not been evaluated for monitoring heparin therapy. The anti-Xa is the preferred test. Current interpretive data was last revised on 2019. Testing performed by: [facility], [address] [place] [address]., [address] Blood 11/02/2024 5:54 PM RETAIL ANALYTICS MANAGER 11/02/2024 5:56 PM RETAIL ANALYTICS MANAGER Narrative MARCELINO - 11/02/2024 6:08 PM RETAIL ANALYTICS MANAGER Baseline prior to heparin initiation Ananya MEANS LAB BLOOD ORDERABLES Final Re sult Performing Organization Address [facility] Co de Phone Number MARCELINO [address] [address] * (ABNORMAL) Protime-INR (11/02/2024 5:54 PM RETAIL ANALYTICS MANAGER) PT 15.3(H) 12.0 - 14.6 sec Comment: Ref Range High Testing performed by: [address] [address] INR 1.2 0.9 - 1.2 MARCELINO Comment: Ref Range High Interpretive data Oral anticoagulant therapeutic ranges: Venous thromboembolism prophylaxis or treatment: 2.0-3.0 CARDIOLOGY Standard range: 2.0-3.0 High-intensity range: 2.5-3.5 Refer to indication-specific guidelines for appropriate target ranges for prosthetic heart valve replacement. Current interpretive data was last revised on 2019. Testing performed by: [address] [address] Blood 11/02/2024 5:54 PM RETAIL ANALYTICS MANAGER 11/02/2024 5:56 PM RETAIL ANALYTICS MANAGER Narrative [facility] - 11/02/2024 6:07 PM RETAIL ANALYTICS MANAGER Baseline prior to heparin initiation Ananya MEANS LAB BLOOD ORDERABLES Final Re sult Performing Organization Address City/[facility] Co de Phone Number ORLIN[address] [place] [address] * (ABNORMAL) CBC without differential (11/02/2024 5:54 PM RETAIL ANALYTICS MANAGER) Pathologist [facility] WBC 8.0 3.8 - 9.9 K/cumm Comment:Testing performed by : [address] [address] Hgb 11.4(L) 11.9 - 15.5 g/dL MARCELINO Comment:Testing performed by : [address] [address] Hct 37.2 35.6 - 45.5 % MARCELINO Comment:Testing performed by : [address] [address] Plt 376 150 - 400 K/cumm MARCELINO Comment:Testing performed by : [address] [address] MPV 10.1 9.1 - 12.3 fL MARCELINO Comment:Testing performed by : [address], [address] RBC 4.25 3.90 - 5.20 M/cumm MARCELINO Comment:Testing performed by : [address], [address] MCV 87.5 81.3 - 96.4 fL MARCELINO Comment:Testing performed by : [address] [address] MCH 26.8(L) 27.1 - 33.3 pg MARCELINO Comment:Testing performed by : [address] [address] MCHC 30.6(L) 32.3 - 35.7 g/dL MARCELINO Comment:Testing performed by : [address], [address] RDW CV 17.1(H) 11.1 - 14.9 % MARCELINO Comment:Testing performed by : [address], [address] RDW SD 54.8(H) 35.7 - 48.1 fL MARCELINO Comment:Testing performed by : [address] [address] NRBC abs 0.00 0.00 - 0.01 K/cumm MARCELINO Comment:Testing performed by : [address] [address] Blood 11/02/2024 5:54 PM RETAIL ANALYTICS MANAGER 11/02/2024 5:56 PM RETAIL ANALYTICS MANAGER Narrative MARCELINO - 11/02/2024 5:59 PM RETAIL ANALYTICS MANAGER Baseline prior to heparin initiation us Ananya MEANS LAB BLOOD ORDERABLES Final Re sult Performing Organization Address City/[facility]/ZIP Co de Phone Number MARCELINO [facility] Department [place] [address] * Magnesium (11/02/2024 5:54 PM RETAIL ANALYTICS MANAGER) Pathologist [facility] Magnesium 1.5 1.4 - 2.5 mg/dL Comment:Testing performed by : [address] [address] Blood 11/02/2024 5:54 PM RETAIL ANALYTICS MANAGER 11/02/2024 5:56 PM RETAIL ANALYTICS MANAGER Ananya MEANS LAB BLOOD ORDERABLES Final Re sult Performing Organization Address [facility] Co de Phone Number MARCELINO [address] [place] [address] * (ABNORMAL) Troponin T high-sensitivity 4-hour (11/02/2024 4:15 PM RETAIL ANALYTICS MANAGER) Pathologist [facility] Trop T hs 204(C) <=14 ng/L Comment: Critical Result called to and read back by [email or web address], DATE: 2024-11-02 16:40:50 BY: Interpretive Data For further hscTnT resources including the diagnostic algorithm and an aid in interpretation, copy and paste this link: https://nrl.testcatalog.org/show/hsTrop Current Interpretive Data last revised 2020. Testing performed by: [address] [address] Trop T hs pct delta 29(C) % MARCELINO HAYWOOD Comment: Critical Result called to and read back by [email or web address], DATE: 2024-11-02 16:40:50 BY: Testing performed by: [address] [address] Trop T hs interp Significa nt(C) MARCELINO HAYWOOD Comment: Critical Result called to and read back by [id number], DATE: 2024-11-02 16:40:50 BY: Testing performed by: [address] [address] Blood 11/02/2024 4:15 PM RETAIL ANALYTICS MANAGER 11/02/2024 4:17 PM RETAIL ANALYTICS MANAGER Narrative MARCELINO - 11/02/2024 4:40 PM RETAIL ANALYTICS MANAGER Critical result called to and read back by [email or web address] (_) on 11/02/2024 16:40:30 CST_ to [id number]_. Gee Modumetal LAB BLOOD ORDERABLES Final Res ult Performing Organization Address [facility] Co de Phone Number [address] [place] [address] * Sepsis Lactate w/ Reflex (11/02/2024 3:15 PM RETAIL ANALYTICS MANAGER) [facility] Sepsis Lactate 1.1 0.7 - 2.0 mmol/L Comment:Testing performed by : [address] [address] Blood 11/02/2024 3:15 PM RETAIL ANALYTICS MANAGER 11/02/2024 3:19 PM RETAIL ANALYTICS MANAGER Gee Modumetal LAB BLOOD ORDERABLES Final Res ult Performing Organization Address [facility] de Phone Number [address] [address] * (ABNORMAL) Troponin T high-sensitivity 2-hour (11/02/2024 3:02 PM RETAIL ANALYTICS MANAGER) Pathologist [facility] Trop T hs 198(H) <=14 ng/L Comment: Interpretive Data For further hscTnT resources including the diagnostic algorithm and an aid in interpretation, copy and paste this link: https://nrl.testcatalog.org/show/hsTrop Current Interpretive Data last revised 2020. Testing performed by: [address] [address] Trop T hs pct delta 25(C) % MARCELINO Comment: Critical Result called to and read back by [id number], DATE: 2024-11-02 15:30:54 BY: Testing performed by: [address] [place] [address] Trop T hs interp Significa nt(C) MARCELINO Comment: Critical Result called to and read back by [id number], DATE: 2024-11-02 15:30:54 BY: Testing performed by: [facility], [address] [place] [address]., [address] Blood 11/02/2024 3:02 PM RETAIL ANALYTICS MANAGER 11/02/2024 3:05 PM RETAIL ANALYTICS MANAGER Narrative [facility] - 11/02/2024 3:31 PM RETAIL ANALYTICS MANAGER Critical result called to and read back by _[email or web address] (_) on 11/02/2024 15:30:00 CST_ to [id number]_. us Gee Yao DO LAB BLOOD ORDERABLES Final Res ult [facility] [address] [facility] Department [place] [address] * CT Head WO Contrast (11/02/2024 2:16 PM RETAIL ANALYTICS MANAGER) Anatomical Region Laterality Modality Head and Neck N/A Computed Tomogra phy 11/02/2024 2:33 PM RETAIL ANALYTICS MANAGER Narrative 11/02/2024 2:35 PM RETAIL ANALYTICS MANAGER EXAM DESCRIPTION: CT HEAD WO CONTRAST REASON [...] Francisco Campbell M.D. [place]: [place] Report ID: [id number] Reading Location: [id number] Procedure Note Juan rFancisco Campbell MD - 11/02/2024 EXAM DESCRIPTION: CT [...] Francisco Campbell M.D. [place]: [place] Report ID: [id number] Reading Location: [id number] Gee Yao DO IMG CT PROCEDURES Final Result * Influenza A/B, RSV, and COVID-19 PCR Nasopharyngeal (11/02/2024 1:59 PM RETAIL ANALYTICS MANAGER) COVID-19 RNA Negative Negative Comment:Testing performed by : [facility], [address] [place] [address]., [address] Influenza A RNA Negative Negative MARCELINO Comment:Testing performed by : [address] [address] Influenza B RNA Negative Negative [facility] Comment:Testing performed by : [address] [address] RSV RNA Negative Negative [facility] Comment: Interpretive data: Testing performed by [facility]. This test is performed using the [employer] Xpert Xpress CoV-2/Flu/RSV plus assay. This is a multiplex, real-time reverse transcriptase PCR assay intended for the qualitative detection of nucleic acid from SARS-CoV-2, influenza A, influenza B, and respiratory syncytial virus. This assay has been cleared by the [place] Food and Drug administration. The performance characteristics have been verified by the [facility]. Results must be considered in the clinical context, and a negative result does not rule out infection. Interpretive Data last revised 2023 Testing performed by: [address] [address] Nasopharyngeal 11/02/2024 1: 59 PM RETAIL ANALYTICS MANAGER 11/02/2024 2:08 PM RETAIL ANALYTICS MANAGER Narrative MARCELINO - 11/02/2024 2:48 PM RETAIL ANALYTICS MANAGER Is the Patient experiencing symptoms consistent with COVID?->Yes Gee Yao DO LAB MICROBIOLOGY - GENERAL ORD ERABLES Final Result MARCELINO [address] [facility] Department [place] [address] * XR Chest 1 View (11/02/2024 1:38 PM RETAIL ANALYTICS MANAGER) Anatomical Region Laterality Modality Body, Chest N/A Computed Radiogr aphy 11/02/2024 2:05 PM RETAIL ANALYTICS MANAGER Narrative 11/02/2024 2:06 PM RETAIL ANALYTICS MANAGER EXAM DESCRIPTION: XR CHEST 1 VIEW REASON [...] Layla Ballard D.O. PS: PS Report ID: [id number] Reading Location: [id number] Procedure Note Layla Ballard DO - 11/02/2024 [...] Layla Ballard D.O. PS: PS Report ID: [id number] Reading Location: [id number] us Gee Yao DO IMG XR PROCEDURES Final Result * ECG 12 lead (11/02/2024 1:19 PM RETAIL ANALYTICS MANAGER) Ventricular Rate EKG/Min 95 BPM [facility] Atrial Rate 95 BPM [facility] MN-Interval (MSEC) 162 ms [facility] QRS-Interval (MSEC) 98 ms [facility] QT-Interval (MSEC) 432 ms [facility] QTc 542 ms [facility] P [place] 17 degrees [facility] R [place] -19 degrees [facility] T [place] 106 degrees [facility] Diagnosis Normal sinus rhythm Minimal voltage criteria for LVH, may be normal variant 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 ([id number]) on 11/02/2024 5:01:19 PM [facility] 11/02/2024 1:19 PM RETAIL ANALYTICS MANAGER 11/02/2024 5:01 PM RETAIL ANALYTICS MANAGER us Gee Yao DO ECG ORDERABLES Final Result [facility] * (ABNORMAL) Urinalysis reflex to microscopic and culture Urine (11/02/2024 12:51 PM RETAIL ANALYTICS MANAGER) Color, ur Yellow Yellow Comment:Testing performed by : [address] [address] Clarity, ur Clear Clear MARCELINO Comment:Testing performed by : [address] [address] Specific gravity, ur 1.024 1.003 - 1.030 MARCELINO Comment:Testing performed by : [address] [address] pH, urine 5.5 MARCELINO Comment: Interpretive Data U rine pH is affected by diet, medications, systemic acid-base disturbances, and renal tubular function. pH may affect urinary stone formation. For example, urine pH below 6.0 may help reduce the tendency for calcium phosphate stones and pH greater than 6.0 may reduce the tendency for uric acid stone formation. Source: [facility] Current Interpretive Data was last revised on 2017 Testing performed by: [address] [address] Protein, ur ql 1+(A) Negative MARCELINO Comment:Testing performed by : [address] [address] Glucose, ur ql Negative Negative MARCELINO Comment:Testing performed by : [address], [place]., [address] Ketones, ur Trace(A) Negative MARCELINO HAYWOOD Comment:Testing performed by : [facility], [address] [place] [address], [place]., [address] Bilirubin, ur Negative Negative MARCELINO Comment:Testing performed by : [address], [place]., [address] Blood, ur 3+(A) Negative MARCELINO Comment:Testing performed by : [address], [place]., [address] Urobilinogen, ur <2.0 <2.0 mg/dL MARCELINO Comment:Testing performed by : [address], [place]., [address] Nitrite, ur Positive(A) Negative MARCELINO HAYWOOD Comment:Testing performed by : [address] [address] Leukocyte esterase, ur Negative Negative MARCELINO Comment:Testing performed by : [address], [place]., [address] UA reflex comment Reflex to microscopic UA will be performed. MARCELINO Comment:Testing performed by : [address] [address] Urine 11/02/2024 12:5 1 PM RETAIL ANALYTICS MANAGER 11/02/2024 12:59 PM RETAIL ANALYTICS MANAGER Gee Yao DO LAB MICROBIOLOGY - GENERAL ORD ERABLES Final Result [facility] [address] [facility] Department [place] [address] * (ABNORMAL) Urinalysis, microscopic only (11/02/2024 12:51 PM RETAIL ANALYTICS MANAGER) WBC, ur 0-5 0 - 5 /HPF Comment:Testing performed by : [address] [address] RBC, ur 6-10(A) 0 - 2 /HPF MARCELINO Comment:Testing performed by : [address] [address] Epithelial cells, squamous, ur >50(A) 0 - 5 /HPF MARCELINO Comment:Testing performed by : [address] [address] Bacteria, ur 3+(A) MARCELINO Comment:Testing performed by : [address], [place]., [address] Mucous, ur Present(A) MARCELINO Comment:Testing performed by : [address] [address] Culture Reflex Comment Reflex conditions for urine culture (WBC >10) not met. MARCELINO Comment:Testing performed by : [address] [address] Urine 11/02/2024 12:5 1 PM RETAIL ANALYTICS MANAGER 11/02/2024 12:59 PM RETAIL ANALYTICS MANAGER Gee Yao DO LAB URINE ORDERABLES Final Res ult [address] [place] [address] * Urine culture Urine, bladder (11/02/2024 12:51 PM RETAIL ANALYTICS MANAGER) Report Final Report: Less than 100,000 colonies/mL (clinically insignificant growth based on current clinical standards) Comment:Testing performed by : [facility], [address] [facility] [place]., [address] Organism (CLINICALLY INSIGNIFICANT GROWTH MARCELINO Urine, bladder 11/02/2024 12 :51 PM RETAIL ANALYTICS MANAGER 11/03/2024 4:59 PM RETAIL ANALYTICS MANAGER Narrative MARCELINO - 11/04/2024 5:58 PM RETAIL ANALYTICS MANAGER Indications for Culture:->Recent positive UA Testing performed by [facility] ([phone]) Satinder Dougherty MD LAB MICROBIOLOGY - GENE RAL ORDERABLES Final Result Performing Organization Address City/[facility]/ZIP Co de Phone Number [address] [place] [address] * (ABNORMAL) Troponin T high-sensitivity series (baseline, 2hr, 4hr, 6hr) (11/02/2024 12:39 PM RETAIL ANALYTICS MANAGER) Trop T hs 158(H) <=14 ng/L Comment: Interpretive Data For further hscTnT resources including the diagnostic algorithm and an aid in interpretation, copy and paste this link: https://nrl.testEverTune.org/show/hsTrop Current Interpretive Data last revised 2020. Testing performed by: [address] [address] Blood 11/02/2024 12:3 9 PM RETAIL ANALYTICS MANAGER 11/02/2024 12:59 PM RETAIL ANALYTICS MANAGER Gee Yao DO LAB BLOOD ORDERABLES Final Res ult Performing Organization Address [facility] Co de Phone Number ORLIN[address] [place] [address] * Troponin T high-sensitivity (11/02/2024 12:39 PM RETAIL ANALYTICS MANAGER) Trop T hs See Comment <=14 ng/L Comment: Improper test ordered. See result for BERNARD Baseline. Interpretive Data For further hscTnT resources including the diagnostic algorithm and an aid in interpretation, copy and paste this link: https://nrl.FIZZA.org/show/hsTrop Current Interpretive Data last revised 2020. Testing performed by: [address] [address] Blood 11/02/2024 12:3 9 PM RETAIL ANALYTICS MANAGER 11/02/2024 12:59 PM RETAIL ANALYTICS MANAGER us Gee Yao DO LAB BLOOD ORDERABLES Edited Re sult - Final Performing Organization Address City/[facility]/ZIP Co de Phone Number ORLIN[address] [place] [address] * (ABNORMAL) Sepsis Lactate w/ Reflex (11/02/2024 12:39 PM RETAIL ANALYTICS MANAGER) Pathologist [facility] Sepsis Lactate 2.1(H) 0.7 - 2.0 mmol/L Comment:Testing performed by : [address] [address] Blood 11/02/2024 12:3 9 PM RETAIL ANALYTICS MANAGER 11/02/2024 12:59 PM RETAIL ANALYTICS MANAGER Gee Yao DO LAB BLOOD ORDERABLES Final Res ult Performing Organization Address [facility] Co de Phone Number MARCELINO [address] [place] [address] * (ABNORMAL) eGFR (11/02/2024 12:39 PM RETAIL ANALYTICS MANAGER) [facility] eGFR 50(L) >=60 mL/min/1. 73 m2 Comment: [...] was last reviewed 2021. Testing performed by: [address] [address] Blood 11/02/2024 12:3 9 PM RETAIL ANALYTICS MANAGER 11/02/2024 12:59 PM RETAIL ANALYTICS MANAGER us Gee Yao DO LAB BLOOD ORDERABLES Final Res ult Performing Organization Address City/[facility]/ZIP Co de Phone Number ORLIN[address] [place] [address] * (ABNORMAL) Differential, auto (11/02/2024 12:39 PM RETAIL ANALYTICS MANAGER) Neutrophil abs 6.7(H) 1.5 - 6.5 K/cumm Comment:Testing performed by : [address] [address] Imm gran abs 0.1 0.0 - 0.1 K/cumm MARCELINO Comment:Testing performed by : [address] [address] Lymphocyte abs 2.0 0.8 - 3.3 K/cumm MARCELINO Comment:Testing performed by : [address] [address] Monocyte abs 1.0(H) 0.2 - 0.8 K/cumm MARCELINO Comment:Testing performed by : [address] [address] Eosinophil abs 0.3 0.0 - 0.5 K/cumm MARCELINO Comment:Testing performed by : [address] [address] Basophil abs 0.1 0.0 - 0.1 K/cumm [facility] Comment:Testing performed by : [address] [address] Neutrophil pct 66.5 % [facility] Comment: Interpretive Data Percent cell count reference ranges are not reported, since discordance with absolute values may lead to misinterpretation of CBC data. Current Interpretive Data was last revised on 2017. Testing performed by: [address] [address] Imm gran pct 0.9 % [facility] Comment: Interpretive Data Percent cell count reference ranges are not reported, since discordance with absolute values may lead to misinterpretation of CBC data. Current Interpretive Data was last revised on 2017. Testing performed by: [address] [address] Lymphocyte pct 19.7 % [facility] Comment: Interpretive Data Percent cell count reference ranges are not reported, since discordance with absolute values may lead to misinterpretation of CBC data. Current Interpretive Data was last revised on 2017. Testing performed by: [address] [address] Monocyte pct 9.5 % MARCELINO Comment: Interpretive Data Percent cell count reference ranges are not reported, since discordance with absolute values may lead to misinterpretation of CBC data. Current Interpretive Data was last revised on 2017. Testing performed by: [address] [address] Eosinophil pct 2.9 % MARCELINO Comment: Interpretive Data Percent cell count reference ranges are not reported, since discordance with absolute values may lead to misinterpretation of CBC data. Current Interpretive Data was last revised on 2017. Testing performed by: [address] [address] Basophil pct 0.5 % MARCELINO Comment: Interpretive Data Percent cell count reference ranges are not reported, since discordance with absolute values may lead to misinterpretation of CBC data. Current Interpretive Data was last revised on 2017. Testing performed by: [address] [address] Blood 11/02/2024 12:3 9 PM RETAIL ANALYTICS MANAGER 11/02/2024 12:59 PM RETAIL ANALYTICS MANAGER us Gee Yao DO LAB BLOOD ORDERABLES Final Res ult [facility] [address] [facility] Department of Laboratories [place], [place] [id number] * (ABNORMAL) CBC with auto differential (11/02/2024 12:39 PM RETAIL ANALYTICS MANAGER) WBC 10.1(H) 3.8 - 9.9 K/cumm Comment:Testing performed by : [address] [address] Hgb 12.9 11.9 - 15.5 g/dL MARCELINO Comment:Testing performed by : [address] [address] Hct 42.9 35.6 - 45.5 % MARCELINO Comment:Testing performed by : [address] [address] Plt 437(H) 150 - 400 K/cumm MARCELINO HAYWOOD Comment:Testing performed by : [address] [address] MPV 10.1 9.1 - 12.3 fL MARCELINO HAYWOOD Comment:Testing performed by : [address] [address] RBC 4.87 3.90 - 5.20 M/cumm MARCELINO HAYWOOD Comment:Testing performed by : [address] [address] MCV 88.1 81.3 - 96.4 fL MARCELINO Comment:Testing performed by : [address] [address] MCH 26.5(L) 27.1 - 33.3 pg MARCELINO HAYWOOD Comment:Testing performed by : [address], [address] MCHC 30.1(L) 32.3 - 35.7 g/dL MARCELINO Comment:Testing performed by : [address] [address] RDW CV 17.3(H) 11.1 - 14.9 % MARCELINO Comment:Testing performed by : [address] [address] RDW SD 56.2(H) 35.7 - 48.1 fL MARCELINO Comment:Testing performed by : [address], [address] NRBC abs 0.00 0.00 - 0.01 K/cumm MARCELINO Comment:Testing performed by : [address], [address] Blood 11/02/2024 12:3 9 PM RETAIL ANALYTICS MANAGER 11/02/2024 12:59 PM RETAIL ANALYTICS MANAGER us Gee Yao DO LAB BLOOD ORDERABLES Final Res ult MARCELINO HAYWOOD [address] [facility] Department [place] [address] * Erythrocyte sedimentation rate (11/02/2024 12:39 PM RETAIL ANALYTICS MANAGER) [facility] Erythrocyte sedimentation rate 30 1 - 30 mm/hr Comment:Testing performed by : [address] [address] Blood 11/02/2024 12:3 9 PM RETAIL ANALYTICS MANAGER 11/02/2024 12:59 PM RETAIL ANALYTICS MANAGER Everest LAB BLOOD ORDERABLES Final Res ult Performing Organization Address [facility] de Phone Number [address] [place] [address] * (ABNORMAL) CRP (acute phase) (11/02/2024 12:39 PM RETAIL ANALYTICS MANAGER) [facility] CRP 19.6(H) <=10.0 mg/L Comment:Testing performed by : [address] [address] Blood 11/02/2024 12:3 9 PM RETAIL ANALYTICS MANAGER 11/02/2024 12:59 PM RETAIL ANALYTICS MANAGER Everest LAB BLOOD ORDERABLES Final Res ult Performing Organization Address [facility] de Phone Number [address] [address] * (ABNORMAL) Comprehensive metabolic panel (11/02/2024 12:39 PM RETAIL ANALYTICS MANAGER) [facility] Sodium 141 135 - 145 mmol/L Comment:Testing performed by : [address] [address] Potassium, pl 3.4 3.3 - 4.9 mmol/L MARCELINO Comment:Testing performed by : [address] [address] Chloride 99 97 - 110 mmol/L MARCELINO Comment:Testing performed by : [address] [address] CO2 30 22 - 32 mmol/L MARCELINO HAYWOOD Comment:Testing performed by : [address] [address] Anion gap 12 2 - 15 mmol/L MARCELINO Comment:Testing performed by : [address] [address] BUN 18 6 - 25 mg/dL MARCELINO Comment:Testing performed by : [address], [place]., [address] Creatinine 1.10 0.60 - 1.10 mg/dL MARCELINO Comment:Testing performed by : [address] [address] Glucose 157 70 - 199 mg/dL MARCELINO [...] was last revised 2022. Testing performed by: [address] [address] Calcium 10.6(H) 8.5 - 10.3 mg/dL MARCELINO Comment:Testing performed by : [address] [address] Bilirubin, total 0.3 0.1 - 1.2 mg/dL MARCELINO Comment:Testing performed by : [address] [address] Protein, pl 6.7 6.5 - 8.5 g/dL MARCELINO Comment:Testing performed by : [address] [address] Albumin 3.7 3.5 - 5.0 g/dL MARCELINO Comment:Testing performed by : [address] [address] Alk phos 107 40 - 130 Units/L MARCELINO Comment:Testing performed by : [address] [address] ALT 15 7 - 45 Units/L MARCELINO Comment:Testing performed by : [address] [address] AST 26 10 - 45 Units/L MARCELINO Comment:Testing performed by : [facility], [address] [place] [address]., [address] Blood 11/02/2024 12:3 9 PM RETAIL ANALYTICS MANAGER 11/02/2024 12:59 PM RETAIL ANALYTICS MANAGER Gee Yao DO LAB BLOOD ORDERABLES Final Res ult Performing Organization Address [facility] de Phone Number [address] [place] [address] * (ABNORMAL) Hemoglobin A1c (09/28/2024 12:13 PM RETAIL ANALYTICS MANAGER) Pathologist [facility] Hgb A1C 7.7(H) 4.0 - 5.6 % Estimated Average Glucose 174 mg/dL MARCELINO Comment: The ADA recommends reporting an estimated Average Glucose (eAG) with all Hemoglobin A1c results using the equation derived from a study of 507 normal and diabetic adults. Minority populations were underrepresented and children were not included. (Diabetes Care 31:1742-4954, 2008). The eAG is not equivalent to a fasting glucose. Blood 09/28/2024 12:1 3 PM RETAIL ANALYTICS MANAGER 09/28/2024 12:16 PM RETAIL ANALYTICS MANAGER Mackenzie Carey SENIOR CYTOGENETICS LABORATORY DIRECTOR LAB BLOOD ORDERABLES Final R esult Performing Organization Address [facility] Co de Phone Number [address] [place] [address] * (ABNORMAL) Albumin Creatinine Ratio, Urine (11/01/2023 9:30 AM RETAIL ANALYTICS MANAGER) [facility] Albumin Ur 50.5 mg/L MARECLINO Comment: Interpretive Data No reference range established. Current interpretive data was last revised 2019. Testing performed by: [address] [address] Creatinine Ur 101.6 mg/dL MARCELINO HAYWOOD Comment: Interpretive Data No reference range established. Current interpretive data was last revised 2019. Testing performed by: [facility], [address] [place] [address]., [address] Albumin Creatinine Ratio, Ur 50(H) 1 - 29 mg/g MARCELINO HAYWOOD Comment:Testing performed by : [facility], [address] [place] [address]., [address] Urine 11/01/2023 9:30 AM RETAIL ANALYTICS MANAGER 11/01/2023 12:14 PM RETAIL ANALYTICS MANAGER us Donn Bonilla DO LAB URINE ORDERABLES Fin al Result MARCELINO [address] [facility] Department [place] [address] * Dexa Axial Skeleton Bone Density 1 or 2 Site (02/29/2020 9:31 AM CDT) Anatomical Region Laterality Modality Body N/A Radiographic Rosa Isela ging 03/01/2020 10:5 7 AM CDT Narrative 03/01/2020 11:00 AM CDT Patient Name: SHARI KAISER Ordering Dr: Donn Bonilla DO D.O.B: 1940 Exam Date: 02/29/20930 Age: 79 Sex: Female MR#: [id number] Loc: RADIOLOGY REPORT Order #[id number] Bone Density Bone Density Hip/Spine (STD) Signed EXAM DESCRIPTION: Bone Density Hip/Spine (STD) REASON FOR STUDY: 79 year old female with given history of osteoarthritis. Application Chemist/Model: W[employer] Style A (S/N [id number]) CLINICAL INFORMATION: Current height: 65.5 inches Weight: [...] by Alonzo Canchola M.D. MD: Report ID: [id number] Reading Location: [id number] REPORT ELECTRONICALLY SIGNED IN OTHER VENDOR SYSTEM Resulting Agency Comment O Procedure Note Alonzo Canchola MD - 03/01/2020 Patient Name: SHARI KAISER Dr: Donn BonillaO.B: 1940 Exam Date: 02/29/20930 Age: 79 Sex: Female MR#: [id number] Loc: RADIOLOGY REPORT Order #[id number] Bone Density Bone Density Hip/Spine (STD) Signed EXAM DESCRIPTION: Bone Density Hip/Spine (STD) REASON FOR STUDY: 79 year old female with given history ofosteoarthritis. Application Chemist/Model: HoloBriteseed A (S/N [id number]) CLINICAL INFORMATION: Current height: 65.5 inches Weight: [...] by Alonzo Canchola M.D. 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.] 12:00 PM 10/08/2024 7:19 PM Care Teams District Sales Manager Relationship Specialty Start Date End Date Donn Bonilla DO [address] [place] [address] [id number] PCP - General Family Medicine 07/05/19 Juan Herrera MD [address] [place] [address] [phone] Wet Sander Cardiovascular Disease 11/14/20 Mona Islas, SENIOR CYTOGENETICS LABORATORY DIRECTOR [address] [place] [address] [phone] Nurse Practitioner 05/27/23
--- NOTE | 2025-01-26 07:36 | PC.NURSE ---
pt arrives to ED with esparza in place, no output at this time
[2025-01-26 08:03] LABS: Basophils Percent Auto 0.3 % (0.2-1.2); Eosinophils Percent Auto 0.5 % (0-4.4); Hematocrit 38.3 % (37.0-47.0); Hemoglobin 11.6 g/dL (12.0-15.0); Immature Granulocyte Absolute 0.02 K/mm3 (0.00-0.031); Immature Granulocyte Percent A 0.3 % (0-0.5); Lymphocytes Absolute Auto 0.57 K/mm3 (0.9-3.2); Lymphocytes Percent Auto 9.9 % (18.3-44.2); Mean Corpuscular HGB Conc 30.3 g/dl (32-36); Mean Corpuscular Hemoglobin 27.2 pg (26-34); Mean Corpuscular Volume 89.9 fl (80-100); Monocytes Absolute Auto 0.6 K/mm3 (0.1-0.6); Monocytes Percent Auto 9.6 % (2.6-8.5); Neutrophils Absolute Auto 4.6 K/mm3 (1.3-6.7); Neutrophils Percent Auto 79.4 % (45.5-73.1); Platelet Count Result 267 k/mm3 (150-375); Red Blood Count 4.26 M/mm3 (4.2-5.4); Red Cell Distribution Width 15.9 % (11.5-14.5); White Blood Count 5.8 K/mm3 (4.5-10.0)
[2025-01-26 08:13] LABS: Alanine Aminotransferase 10 U/L (6-35); Albumin Level 3.3 g/dL (3.5-5.1); Alkaline Phosphatase 85 U/L (38-126); Anion Gap 4 mmol/L (4-12); Aspartate Amino Transferase 32 U/L (14-36); Bilirubin,Total 0.6 mg/dL (0.2-1.3); Blood Urea Nitrogen 11 mg/dL (7-17); Calcium 9.5 mg/dL (8.4-10.2); Carbon Dioxide 33 mmol/L (22-30); Chloride 97 mmol/L (98-107); Estimated CRCL calculation 47 ml/min; Estimated Glomerular Filt Rate > 60; Glucose 121 mg/dL (65-110); Potassium 2.9 mmol/L (3.4-5.0); Sodium 134 mmol/L (137-145)
[2025-01-26 08:25] LABS: Prothrombin Time 13.1 Seconds (11.1-14.7)
[2025-01-26 08:26] LABS: Partial Thromboplastin Time 25.5 Seconds (22.3-36.8)
--- NOTE | 2025-01-26 08:52 | PC.NURSE ---
no urine output in esparza catheter
[2025-01-26] MEDS: ALBUTEROL SULFATE NEB 2.5 MG/3 ML INH 10 MG INHALATION (08:55)
[2025-01-26] MEDS: IPRATROPIUM BR 0.02% INH SOLN 0.5 MG/2.5 ML VIAL 1 MG INHALATION (08:55)
--- NOTE | 2025-01-26 09:24 | ED_ITS ---
HPI - Abdominal Pain General Chief Complaint: Abdominal Pain Stated Complaint: Abd pain Time Seen by Provider: 01/26/25 07:04 History of Present Illness HPI narrative: Patient is an 84-year-old female who presents the ER with abdominal pain. Lower abdomen cramping. Patient orient times 2-3 and has known dementia. Patient reports intermittent loose stools but she did have a formed stool just prior to my evaluation. She has indwelling Connolly. No other complaints at this time. Related Data Allergies Allergy/AdvReac Type Severity Reaction Status Date / Time atorvastatin Allergy Mild Unknown Verified 01/26/25 11:45 cephalexin Allergy Mild Unknown Verified 01/26/25 11:45 gentamicin Allergy Mild Unknown Verified 01/26/25 11:45 pregabalin Allergy Mild Unknown Verified 01/26/25 11:45 Sulfa (Sulfonamide Allergy Mild Unknown Verified 01/26/25 11:45 Antibiotics) Review of Systems 2 Review of Systems: ROS unobtainable: Yes unobtainable due to mental status PMFSH Past Medical History Medical History (Updated 01/26/25 @ 13:14 by Juan Matta MD) Mitral valve prolapse Gastroesophageal reflux disease without esophagitis Hyperlipidemia Diabetes Hypertension Alzheimer's dementia Exam 2 Narrative: GENERAL: Frail-appearing, well-nourished, and in no acute distress. HEAD: Normocephalic, atraumatic. ENT: Mucous membranes moist. CHEST: Mild expiratory wheezing. No respiratory distress. HEART: Regular rate and rhythm. Normal peripheral pulses. ABDOMEN: Soft, mild lower abdominal tenderness with palpation but no guarding, nondistended. Stool ball further into the rectum then I can reach with my finger. EXTREMITIES: Normal range of motion. No edema. SKIN: Warm, dry, no rash. NEURO: Alert and oriented x2-3. PSYCH: Normal mood and affect. Course Course Emergency Course: Significant stool burden removed with soapsuds enema in fleets enema. Lungs clear after breathing treatment. Urine consistent with UTI. Discharge with oral antibiotics and stool softeners. Vital Signs Vital signs: Vital Signs Pulse Rate 78 01/26/25 06:58 Respiratory Rate 16 01/26/25 06:58 Pulse Oximetry 96 01/26/25 06:58 Oxygen Delivery Room Air 01/26/25 06:58 Temperature 99.6 F 01/26/25 07:24 Pulse Rate 83 01/26/25 09:45 Respiratory Rate 19 01/26/25 09:45 Blood Pressure 170/84 H 01/26/25 07:31 Pulse Oximetry 98 01/26/25 11:31 Oxygen Delivery Room Air 01/26/25 07:28 MDM - Abdominal Pain Lab Data 01/26/25 07:55 01/26/25 07:55 Labs: Lab Results 01/26/25 01/26/25 Range/Units 07:55 11:05 WBC 5.8 (4.5-10.0) K/mm3 RBC 4.26 (4.2-5.4) M/mm3 Hgb 11.6 L (12.0-15.0) g/dL Hct 38.3 (37.0-47.0) % MCV 89.9 (80-100) fl MCH 27.2 (26-34) pg MCHC 30.3 L (32-36) g/dl RDW 15.9 H (11.5-14.5) % Plt Count 267 (150-375) k/mm3 MPV 10.0 (7.4-10.4) fl Immature Gran % (Auto) 0.3 (0-0.5) % Neut % (Auto) 79.4 H (45.5-73.1) % Lymph % (Auto) 9.9 L (18.3-44.2) % [place] % (Auto) 9.6 H (2.6-8.5) % Eos % (Auto) 0.5 (0-4.4) % Baso % (Auto) 0.3 (0.2-1.2) % Lymph # (Auto) 0.57 L (0.9-3.2) K/mm3 [place] # (Auto) 0.6 (0.1-0.6) K/mm3 Eos # (Auto) 0.0 (0-0.3) K/mm3 Baso # (Auto) 0.0 (0.0-0.1) K/mm3 Abs Immat Gran (auto) 0.02 (0.00-0.031) K/mm3 Absolute Neuts (auto) 4.6 (1.3-6.7) K/mm3 Absolute Nucleated RBC 0.000 (0.0-0.012) K/mm3 Nucleated RBC % 0.0 (0.0-0.2) % PT 13.1 (11.1-14.7) Seconds INR 1.0 APTT 25.5 (22.3-36.8) Seconds Sodium 134 L (137-145) mmol/L Potassium 2.9 L (3.4-5.0) mmol/L Chloride 97 L (98-107) mmol/L Carbon Dioxide 33 H (22-30) mmol/L Anion Gap 4 (4-12) mmol/L BUN 11 (7-17) mg/dL Creatinine 0.77 (0.7-1.0) mg/dL Estim Creat Clear Calc 47 ml/min Estimated GFR > 60 (59 - ) Glucose 121 H (65-110) mg/dL Calcium 9.5 (8.4-10.2) mg/dL Total Bilirubin 0.6 (0.2-1.3) mg/dL AST 32 (14-36) U/L ALT 10 (6-35) U/L Alkaline Phosphatase 85 (38-126) U/L Total Protein 6.0 L (6.3-8.2) g/dL Albumin 3.3 L (3.5-5.1) g/dL Urine Color Yellow (Yellow) Urine Appearance Cloudy H (Clear) Urine pH 8.0 (5.0-9.0) Ur Specific [place] 1.034 (1.001-1.035) Urine Protein 2+ H (Negative) mg/dL Urine Glucose (UA) Negative (Negative) mg/dL Urine Ketones 1+ H (Negative) mg/dL Ur Blood (Man) 3+ H (Negative) Urine Nitrate Positive H (Negative) Urine Bilirubin Negative (Negative) Urine Urobilinogen 1.0 (<2.0) mg/dL Add Ur Microanalysis Reviewed Leukocyte Esterase Rfl 2+ H (Negative) ROLY/UL Urine RBC >100 H (0-2) /hpf Urine WBC 51-100 H (0-3) /hpf Ur Squamous Epith Cells Few (Few) /hpf Urine Bacteria 4+ H /hpf Urine Casts 0-2 Imaging Data Radiologist's impression: ITS Impressions Abdomen/Pelvis CT 01/26/25 09:22 IMPRESSION: Findings consistent with fecal impaction, to the level of the umbilicus. Discharge Plan Discharge Clinical Impression: Acute UTI, Fecal impaction in rectum Patient Disposition: Home Condition: Stable Instructions: Antibiotic Form, Constipation (ED), Urinary Tract Infection in Women (ED) Additional Instructions: You should return to the emergency department if you develop severe nausea and vomiting and are unable to keep liquids down, if you develop severe back/flank or stomach pain, or if your symptoms are not clearly improving at home. Additionally your constipated and a large stool ball was removed in the ER. You need to be drinking more water and taking some laxatives to help with bowel transit. Patient Language: Thai Prescriptions: New polyethylene glycol 3350 [Miralax] 17 gram/dose powder 17 g PO DAILY Qty: 119 0RF ciprofloxacin HCl 500 mg tablet 500 mg PO Q12H Qty: 14 0RF Follow-up/Referrals: Chad,Donn Carlson MD [Primary Care Provider] - 1 Week
[2025-01-26 11:43] LABS: Add Urine Microscopic? YES; Appearance Urine Cloudy (Clear); Bacteria Urine 4+ /hpf; Bilirubin Urine Negative (Negative); Blood Urine 3+ (Negative); Color Urine Yellow (Yellow); Glucose Urine UA Negative (Negative); Ketones Urine 1+ mg/dL (Negative); Leukocyte Esterase Ur 2+ LEU/UL (Negative); Need Manual Microscopic Reviewed; Nitrate Urine Positive (Negative); Non Pathogenic Casts 0-2; Protein Urine 2+ mg/dL (Negative); RBC Urine >100 /hpf (0-2); Specific Grav Ur 1.034 (1.001-1.035); Squamous Epithelial Cell Urine Few /hpf (Few); WBC Urine 51-100 /hpf (0-3)
--- NOTE | 2025-01-26 12:22 | PC.NURSE ---
Patient had very large bowel movement. patient requested a cup of water, mouth swab provided and spoke with MD about water.
--- NOTE | 2025-01-26 12:29 | PC.NURSE ---
Called report to Charis Mclean at this time, spoke with Valeri, and answered questions for her. Gave update to patient test results and care provided at this time, that esparza was replaced, and medications that she is getting prescribed upon discharge. asked about transportation, was told they did not have transportation today
== END 2025-01-26 14:06 | disposition home or self-care (01) ==
PROVIDERS: Emergency Provider Emergency Medicine; PCP Family Medicine
DX: N39.0 Urinary tract infection, site not specified (principal); K56.41 Fecal impaction; F02.80 Dementia in other diseases classified elsewhere, unspecified severity, without behavioral disturbance, psychotic disturbance, mood disturbance, and anxiety; I10 Essential (primary) hypertension; I34.1 Nonrheumatic mitral (valve) prolapse; E78.5 Hyperlipidemia, unspecified; E11.9 Type 2 diabetes mellitus without complications; G30.9 Alzheimer's disease, unspecified; K21.9 Gastro-esophageal reflux disease without esophagitis
CPT/HCPCS: 36415; 74177; 80053; 81001; 85025; 85610; 85730; 87077; 87086; 87186; 94640; 99284; Q9967

== ENCOUNTER 2025-02-11 19:30 | Emergency (ER) | payer MEDICARE, SELFPAY ==
[2025-02-11 19:30] VITALS: BP 165/75; PULSE 73; RESP 19; TEMP 36.7; O2SAT 100
[2025-02-11 19:43] VITALS: BP 165/75; PULSE 71; RESP 16; TEMP 36.7; O2SAT 99
--- NOTE | 2025-02-11 20:03 | ED_ITS ---
HPI - Female Genitourinary General Chief complaint: Urogenital-Female Stated complaint: leaking esparza Time Seen by Provider: 02/11/25 19:33 History of Present Illness HPI Narrative: Patient is a 84-year-old female who presents to the ER with complaints of a leaking Esparza catheter. She reports her catheter has been leaking a fair amount lately. Patient reports the detention recently changed out her Esparza but the symptoms continue. She reports she does not have a urologist. Patient denies any acute abdominal pain, back pain or recent fevers. She reports she has chronic abdominal pain from constipation. Patient reports she no longer has constipation medication at home and would like more prescribed. Related Data Allergies Allergy/AdvReac Type Severity Reaction Status Date / Time atorvastatin Allergy Mild Unknown Verified 01/26/25 11:45 cephalexin Allergy Mild Unknown Verified 01/26/25 11:45 gentamicin Allergy Mild Unknown Verified 01/26/25 11:45 pregabalin Allergy Mild Unknown Verified 01/26/25 11:45 Sulfa (Sulfonamide Allergy Mild Unknown Verified 01/26/25 11:45 Antibiotics) Review of Systems 2 Review of Systems: All systems reviewed & are unremarkable except as noted in HPI and below PMFSH Past Medical History Medical History Mitral valve prolapse Gastroesophageal reflux disease without esophagitis Hyperlipidemia Diabetes Hypertension Alzheimer's dementia Exam 2 Narrative: GENERAL: Well appearing, well-nourished, non-toxic, in no acute distress. HEAD: Normocephalic, atraumatic. NECK: Supple. No adenopathy, no masses. RESPIRATORY: Airway patent, respirations nonlabored. Clear to auscultation bilaterally, no rales, rhonchi, wheezing. CARDIOVASCULAR: Regular rate and rhythm with murmur, rubs, or gallops. Peripheral pulses 2+ and equal bilaterally. ABDOMINAL: Soft, mildly tender in RLQ d/t constipation, mildly distended, no hepatosplenomegaly. Normoactive BS. MUSCULOSKELETAL: Moves all extremities. Strength/ROM intact without gross deformities. SKIN: Warm, dry, normal color. No rashes. NEURO: A&O X3. Speech clear. Cranial nerves II-XII intact. No ataxic movements. PSYCHIATRIC: Appropriate mood and affect. Normal interaction. Course Vital Signs Vital signs: Vital Signs Temperature 36.7 C 02/11/25 19:30 Pulse Rate 73 02/11/25 19:30 Respiratory Rate 19 02/11/25 19:30 Blood Pressure 165/75 H 02/11/25 19:30 Pulse Oximetry 100 02/11/25 19:30 Oxygen Delivery Room Air 02/11/25 19:30 Temperature 36.7 C 02/11/25 19:43 Pulse Rate 76 02/11/25 23:00 Respiratory Rate 20 02/11/25 23:00 Blood Pressure 178/79 H 02/11/25 23:00 Pulse Oximetry 99 02/11/25 23:00 Oxygen Delivery Room Air 02/11/25 19:30 MDM - Female Genitourinary MDM Narrative Medical decision making narrative: Patient is a 84-year-old female who presents to the ER with complaints of a leaking Esparza catheter. She reports her catheter has been leaking a fair amount lately. Patient reports the detention recently changed out her Esparza but the symptoms continue. She reports she does not have a urologist. Patient denies any acute abdominal pain, back pain or recent fevers. She reports she has chronic abdominal pain from constipation. Patient reports she no longer has constipation medication at home and would like more prescribed. Labs Ordered: CBC, CMP, UA, lactic acid Imaging Ordered: None necessary Medications Ordered: Augmentin PO Results: Patient's UA indicates 3+ leukocytes, 2+ blood. Her CBC and CMP results were all consistent or better than previous results. Patient's lactic acid was 1.1. Diagnosis: Urinary tract infection Consults: Urology (outpatient) Differential Diagnosis Differential diagnosis: Likely urinary tract infection and other (Esparza catheter dysfunction, bladder spasm) Lab Data Attestation: I reviewed the patient's lab results. 02/12/25 00:34 02/12/25 00:34 Labs: Lab Results 02/11/25 02/12/25 Range/Units 21:12 00:34 WBC 7.2 (4.5-10.0) K/mm3 RBC 4.06 L (4.2-5.4) M/mm3 Hgb 11.1 L (12.0-15.0) g/dL Hct 36.7 L (37.0-47.0) % MCV 90.4 (80-100) fl MCH 27.3 (26-34) pg MCHC 30.2 L (32-36) g/dl RDW 16.2 H (11.5-14.5) % Plt Count 250 (150-375) k/mm3 MPV 9.4 (7.4-10.4) fl Immature Gran % (Auto) 0.1 (0-0.5) % Neut % (Auto) 80.2 H (45.5-73.1) % Lymph % (Auto) 9.9 L (18.3-44.2) % [place] % (Auto) 7.2 (2.6-8.5) % Eos % (Auto) 2.2 (0-4.4) % Baso % (Auto) 0.4 (0.2-1.2) % Lymph # (Auto) 0.71 L (0.9-3.2) K/mm3 [place] # (Auto) 0.5 (0.1-0.6) K/mm3 Eos # (Auto) 0.2 (0-0.3) K/mm3 Baso # (Auto) 0.0 (0.0-0.1) K/mm3 Abs Immat Gran (auto) 0.01 (0.00-0.031) K/mm3 Absolute Neuts (auto) 5.8 (1.3-6.7) K/mm3 Absolute Nucleated RBC 0.000 (0.0-0.012) K/mm3 Nucleated RBC % 0.0 (0.0-0.2) % Sodium 134 L (137-145) mmol/L Potassium 3.6 (3.4-5.0) mmol/L Chloride 101 (98-107) mmol/L Carbon Dioxide 30 (22-30) mmol/L Anion Gap 3 L (4-12) mmol/L BUN 11 (7-17) mg/dL Creatinine 0.77 (0.7-1.0) mg/dL Estim Creat Clear Calc 45 ml/min Estimated GFR > 60 (59 - ) Glucose 127 H (65-110) mg/dL Lactic Acid 1.1 (0.7-2.0) mmol/L Calcium 9.6 (8.4-10.2) mg/dL Total Bilirubin 0.4 (0.2-1.3) mg/dL AST 20 (14-36) U/L ALT 11 (6-35) U/L Alkaline Phosphatase 98 (38-126) U/L Total Protein 6.2 L (6.3-8.2) g/dL Albumin 3.2 L (3.5-5.1) g/dL Urine Color Yellow (Yellow) Urine Appearance Clear (Clear) Urine pH 8.0 (5.0-9.0) Ur Specific [place] 1.007 (1.001-1.035) Urine Protein Trace (Negative) mg/dL Urine Glucose (UA) Negative (Negative) mg/dL Urine Ketones Negative (Negative) mg/dL Ur Blood (Man) 2+ H (Negative) Urine Nitrate Negative (Negative) Urine Bilirubin Negative (Negative) Urine Urobilinogen 0.2 (<2.0) mg/dL Leukocyte Esterase Rfl 3+ H (Negative) ROYL/UL Urine RBC 21-50 H (0-2) /hpf Urine WBC >100 H (0-3) /hpf Ur Squamous Epith Cells None seen (Few) /hpf Urine Bacteria None seen /hpf Urine Casts 0-2 Discharge Plan Discharge Clinical Impression: Urinary tract infection Patient Disposition: [place] Jail/Asst Living Condition: Stable Instructions: Antibiotic Form, Urinary Tract Infection in Women (ED), Esparza Catheter Placement and Care (ED) Additional Instructions: Please return to the ER with any worsening symptoms. Follow-up with primary care provider as soon as possible. You may also follow-up with Urology as needed. Take all medications as prescribed, including regularly scheduled medications. Complete your full dose of antibiotics. Patient Language: Malay Prescriptions: New amoxicillin-pot clavulanate 875-125 mg tablet 1 tablet PO Q12H Qty: 14 0RF No Action polyethylene glycol 3350 [Miralax] 17 gram/dose powder 17 g PO DAILY Qty: 119 0RF ciprofloxacin HCl 500 mg tablet 500 mg PO Q12H Qty: 14 0RF Follow-up/Referrals: Chad,Donn Carlson MD [Primary Care Provider] - Sarah Sales MD [Physician] - (urology) Stand Alone Forms: [facility] Discharge Time of Disposition: 01:02
--- OUTSIDE RECORDS SUMMARY | 2025-02-11 20:08 | XMS_ITS | Clinical Summary ---
Author Organization [facility] Address [address] [place] [address] Care Team Providers Care Flash Developer Name Role Phone Amparo Faustin MD Unavailable [phone] Donn Bonilla DO Primary Care Provider [phone] Allergies Active Allergy Reactions Criticality Noted Date [...] UTI (urinary tract infection) 01/17/2024 Pulmonary embolism ([facility]) 05/01/2022 Pneumonia 01/20/2022 COVID-19 09/06/2021 Major depressive disorder, single episode 2021 Overview (09/06/2021): Depression - (Added by TW Conv) Shortness of breath 09/04/2021 Bicuspid aortic valve 01/30/2021 CHOUDHURY (dyspnea on exertion) 10/21/2020 Fibromyalgia 09/24/2020 Subconjunctival hemorrhage of right eye 09/24/19 Overview (09/06/2021): Last Assessment & Plan: Advised not to stop Xarelto without consulting with PCP and instructed to keep upcoming appointment with electronic assembler group leader. Cerebrovascular accident (CVA) ([facility]) 08/26/2020 Dupuytren contracture 01/15/2020 Fracture of pelvis ([facility]) 01/15/2020 Hypercalcemia of malignancy 01/15/2020 Mass of cerebellum 01/15/2020 RLS (restless legs syndrome) 01/15/2020 Chronic kidney disease (CKD), stage III (moderat e) 07/05/2019 Lumbar spinal stenosis 07/05/2019 OAB (overactive bladder) 07/05/2019 Liver mass 06/21/2018 Hernia, inguinal, unilateral 06/09/2018 DM (diabetes mellitus), type 2 ([facility]) 05/20/2018 HTN (hypertension), benign 05/20/2018 Chronic deep vein thrombosis (DVT) of proximal vein of lower extremity ([facility]) 05/20/2018 KIMBERLY (acute kidney injury) 05/20/2018 Dry mucous membranes 05/19/2018 Generalized weakness 05/19/2018 Rheumatoid arthritis ([facility]) 8 History of deep venous throm bosis [...] vein thrombosis (DVT) o f lower extremity ([facility]) 10/07/2011 Extrinsic asthma with exacerbation ([facility]) 04/2003 Allergic rhinitis due to other allergen 09/22/19 00 MVP (mitral valve prolapse) Mixed hyperlipidemia Resolved Problems Problem Noted Date Diagnosed Date Resolved Date Statin intolerance 11/14/2020 2 Sepsis ([facility]) 05/19/201812/2018 Chest pain 08/26/2017 08/27/2017 Immunization due 06/09/2017 2020 Immunizations Immunization Administration Dates Next Due Fluzone High Dose - >Age 65 (Prefilled Syringe) 06/02/2019 Influenza (Generic) 07/17/2015, 4,06/20/2013,2011 Influenza Adult (Generic) 05/30/2018,06/09/2017, 06/25/2016 Pneumococcal (Pneumovax 23) 06/02/2019 Pneumococcal (Prevnar 13) 06/03/2016 Tdap (Generic) 06/25/2016 Family History Medical History Relation Comments Heart Mother Rheumatoid Arthritis Mother [place] Sister silent mitral valve clip Sister Relation [...] from your doctor or pharmacy? Never 02/13/2024 [facility] Utilities Answer Date Recorded In the past 12 months has [facility] [employer], gas, oil, or water [employer] threatened to shut off services in your [...] often do you attend chur ch or jain services? 1 to 4 times per year 02/13/2024 Do you belong to any clubs o r organizations such as yazidism groups, unions, fraternal or athletic groups, or [...] and heating? Not hard at all 02/13/2024 [facility]ational [facility] Questionnaire Answer Date [...] any time in the past 12 m [facility], were you homeless or living in a detention (including now)? 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 on file Not on file Not [...] 1:00 PM CDT Height 170.2 cm (5' 7) 02/13/2024 1:00 PM CDT Body Mass Index [...] ( season) 2024 01/25/2021, 12/28/2020 PHQ-2 (Physician Corwith) 08/30/2024 DTaP, Tdap and Td Vaccines (2 [...] home safety measures General No Noelle Atkinson, billing and insurance coordinator - family caregiver with be involved in care transitions and discharge planning Lifestyle No Radha Deleon, [employer] Procedures Procedure Name Priority Date/Time Associated Diagnosis Comments LIPID PANEL Routine 07/06/2019 2:54 PM RADIOACTIVE WASTE DISPOSAL DISPATCHER Chronic kidney disease, stage III (moderate) DM type 2 causing CKD stage 3 Hyperlipidemia Anemia, unspecified HEMOGLOBIN, GLYCOSYLATED Routine 07/06/2019 2:54 PM RADIOACTIVE WASTE DISPOSAL DISPATCHER Chronic kidney disease, stage III (moderate) DM type 2 causing CKD stage 3 Hyperlipidemia Anemia, unspecified from Last 3 Months or Most Recently Relevant to Health Maintenance Results * (ABNORMAL) HEMOGLOBIN, GLYCOSYLATED (07/06/2019 2:54 PM RADIOACTIVE WASTE DISPOSAL DISPATCHER) HGB A1C 6.6(H) 4.2 - 6.3 % 07/06/2019 5:49 PM RADIOACTIVE WASTE DISPOSAL DISPATCHER [facility] Comment: ADA GUIDELINES 2010 5.7 TO 6.4% INCREASED RISK OF DIABETES > OR = 6.5% CONSISTENT WITH DIABETES ESTIMATED AVG GLUCOSE 143 mg/dL 07/06/2019 5:49 PM [facility] 07/06/2019 2:54 PM RADIOACTIVE WASTE DISPOSAL DISPATCHER Donn Bonilla DO LABORATORY Final Result [facility] [address] [place] [address], [place] [phone] * (ABNORMAL) LIPID PANEL (07/06/2019 2:54 PM RADIOACTIVE WASTE DISPOSAL DISPATCHER) CHOLESTEROL 237(H) <200 MG/DL 07/06/2019 4:18 PM [facility] TRIGLYCERIDES 187(H) <150 MG/DL 07/06/2019 4:18 PM [facility] HDL 67 >40.0 MG/DL 07/06/2019 4:18 PM [facility] LDL (CALCULATED) 133(H) <100 MG/DL 07/06/2019 4:18 PM [facility] NON HDL CHOLESTEROL 170(H) <130 MG/DL 07/06/2019 4:18 PM [facility] CHOL/HDL RATIO 3.5 0.0 - 4.5 07/06/2019 4:18 PM [facility] VLDL CALCULATION 37 5 - 55 MG/DL 07/06/2019 4:18 PM [facility] LIPID INTERPRETATION 07/06/2019 4:18 PM [facility] Comment: NIH CONCENSUS REPORT RECOMMENDATIONS: ADULT CHILD LOW RISK: CHOLESTEROL <200 <170 TRIGLYCERIDE <150 --- HDL >=60 --- LDL <100 <110 BORDERLINE: CHOLESTEROL 200-239 170-199 TRIGLYCERIDE 150-199 --- HDL 40-59 --- LDL 100-159 110-129 HIGH RISK: CHOLESTEROL >=240 >=200 TRIGLYCERIDE >=200 --- HDL <40 --- LDL >=160 >=130 07/06/2019 2:54 PM RADIOACTIVE WASTE DISPOSAL DISPATCHER Donn Bonilla DO LABORATORY Final Result [facility] [address] [place] [address], from Last 3 Months or Most Recently [...] 4:01 PM 01/23/2022 6:32 PM Care Teams Flash Developer Relationship Specialty Start Date End Date Donn Bonilla DO [facility] [address] [place], [place] [address] PCP - General FAMILY PRACTICE 06/14/19 Amparo Faustin MD [facility] [address] [place] [address] [place] Large Sheetfed Press Operator CARDIOVASCULAR DISEASE 09/22/17
--- OUTSIDE RECORDS SUMMARY | 2025-02-11 20:08 | XMS_ITS | Continuity of Care Document ---
Author Organization [facility] Address [address] [place] [address] Phone Care Team Providers Care Wagon Driller Name Role Phone Stuart Matias MD Unavailable Unavailable Allergies, Adverse Reactions, Alerts Substance Reaction Status Criticality CEPHALEXIN MONOHYDRATE Anaphylaxis Active No In formation penicillin G Anaphylaxis Active No Information sulfacetamide Anaphylaxis Active No Information Medications Medication Instructions Dosage Effective Dates (start - stop) Status Comments FEXOFENADINE HCL 180 MG TABLET 1 QD-daily - Active MAXAIR AUTOHALER 0.2 MG AERO 2 Q 4HR - Active FLOVENT HFA 44MCG PUFFS 2 BID - Active NASONEX 50MCG APPLICS 2 QD-daily - Active FEXOFENADINE HCL 180 MG TABLET 1 QD-daily - No Longer Active FEXOFENADINE HCL 180 MG TABLET 1 QD-daily - No Longer Active NASACORT AQ NASAL SPRAY 2 QD-daily - No Longer Active MAXAIR AUTOHALER 0.2 MG AERO 2 Q 4HR - No Longer Active FEXOFENADINE HCL 180 MG TABLET 1 QD-daily - No Longer Active ADVAIR DISKUS 100-50MCG DISKS 1 BID - No Longer Active FEXOFENADINE HCL 180 MG TABLET 1 QD-daily - No Longer Active NASACORT AQ NASAL SPRAY 2 QD - No Longer Active ASMANEX TWISTHALER 220 MCG #30 1 QD - No Longer Active FEXOFENADINE HCL 180 MG TABLET 1 QD - No Longer Active PREDNISONE 20MG TABS 0 DIRECTE 2005 - No Longer Active 3 tabs for 2 days then 2 abs for 3-5 days MAXAIR AUTOHALER 0.2 MG AERO 2 Q [...] TABLET 1 QD - No Longer Active VERONICA 180 MG TABLET 1 QD - No Longer Active MAXAIR AUTOHALER 0.2 MG AERO 2 Q 4HR - No Longer Active NASACORT AQ NASAL SPRAY 2 QD - No Longer Active ADVAIR 100/50 DISKUS 1 BID 2004 - No Longer Active PREDNISONE 20MG TABS [...] INHALER 2 BID - No Longer Active NASACORT AQ NASAL SPRAY 2 QD - No Longer Active VERONICA 180MG TABLET 1 QD 2002 - No Longer Active MAXAIR AUTOHALER 0.2MG AERO 2 Q 4HR - No Longer Active PREDNISONE 20MG TABS 2 QD 2002 - No Longer Active VERONICA 180MG TABS 1 QD - No Longer Active VERONICA 60MG CAPSULE 1 BID 2001 - No Longer Active MAXAIR AUTOHALER 0.2MG AERO 2 Q 4HR - No Longer Active FLOVENT 110MCG INHALER 2 BID - No Longer Active NASACORT AQ NASAL SPRAY 2 QD - No Longer Active MAXAIR AUTOHALER 0.2MG PUFFS 2 Q 4HR - No Longer Active VERONICA 60MG CAPS 1 BID No Longer Active FLOVENT 110MCG PUFFS 2 BID 1999 - No Longer Active NASACORT AQ 55MCG APPLICS 2 QD - No Longer Active Advance Directives Directive Yes / No Effective Date File Name No Information Encounters Encounter Description Practice Location Reason(s) For Visit Diagnoses Date Provider Providers Copied on Encounter [facility], [address], [place], [place], [id number], tel:[phone] [facility] No Information 1 Florencio Davidson. [address], [id number], [place]. tel:[phone] [facility], [address], [place], [place], [id number], tel:[phone] [facility] ALLERGIC RHINITIS NECINTRINSIC ASTHMA NOS 8 Florencio Davidson. [address] [place], [id number], . tel:[phone] [facility], [address], [place], [place], [id number], tel:[phone] [facility] ACUTE URI NOSEXT ASTHMA W(ACUTE) EXAC 3-200 6 Conversion Doctor. [address] [place] [address], [address], . [facility], [address], [place], [place], [id number], tel:[phone] [facility] No Information 0 5-200 4 Florencio Davidson. [address] [place] [address], [id number], . tel:[phone] [facility], [address], [place], [place], [id number], tel:[phone] [facility] ESOPHAGEAL REFLUX 4-200 0 Florencio Davidson. [address] [place] [address], [id number], . tel:[phone] Family History Family Member Type Diagnosis Age At Onset No Information Payers Payer name Insurance type Covered libertarian ID Authoriza tion(s) No Information Social History Type Description Quantity Date Captured Comments Sex Female Smoking Status No Information Chief Complaint And Reason For Visit No [...]
--- OUTSIDE RECORDS SUMMARY | 2025-02-11 20:08 | XMS_ITS | Encounter Summary ---
Author Organization [facility] Address [address] [place] [address] Care Team Providers Care Service Officer Name Role Phone Amparo Faustin MD Unavailable [phone] Donn Bonilla DO Primary Care Provider [phone] Reason for Visit * Reason Onset Date Comments Hospital Follow Up 04/20/2019 Encounter Details Date Type Department Care Team (Late st Contact Info) Description 04/20/2019 Patient Outreach [facility] - [address], [facility] [place] [address] Katty Moore RN [address] [place] [address] Hospital Follow Up Social History Tobacco Use Types Packs/Day Years Used Date Smoking Tobacco: Never Smokeless Tobacco: Never Alcohol Use Standard Drinks/Week Comments No 0 (1 standard drink = 0.6 oz pur e alcohol) Comments No Sex and Gender Information Value Date Recorded Sex Assigned at Female 09/01/2018 2:46 PM TOOTH CLERK Legal Sex Female 4:57 PM CDT Gender Identity Female 09/01/2018 2:46 PM TOOTH CLERK Sexual Orientation Straight 09/01/2018 2: 46 PM TOOTH CLERK 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 [facility] [address] [place], [place] [id number] [place] Continuous Miner CARDIOVASCULAR DISEASE 09/22/17 documented as of this encounter
--- OUTSIDE RECORDS SUMMARY | 2025-02-11 20:08 | XMS_ITS | Referral Summary ---
Author Organization [facility] Address [address] [place] [address] Care Team Providers Care Water Pollution Control Technician Name Role Phone Donn Bonilla DO Primary Care Provider + Juan Herrera MD Unavailable Mona Islas NP Unavailable [phone] Encounters Date Type Department Care Team Description 01/26/2025 Orders Only [facility] Health Information Management [address] [place] [address] Scanning, Provider 01/26/2025 Home Care Visit [address] [place] [address] Dania Shelton RN SN TRIAGE ENCOUNTER 01/17/2025 Plan of Care Documentation [address] [place] [address] 01/17/2025 11:00 AM CDT Home Care Visit [address] [place] [address] Sharon Avila RN SN HOSPICE DISCHARGE 01/17/2025 11:00 AM CDT Home Care Visit [address] [place] [address] Kaushik Smith CNA AIDE HOME VISIT 01/15/2025 10:00 AM CDT Home Care Visit [address] [place] [address] Sharon Avila, RN SN HOSPICE VISIT 01/11/2025 3:00 AM CDT Home Care Visit [address] [place] [address] Sharon Avila, RN SN HOSPICE VISIT 01/10/2025 2:30 PM CDT Home Care Visit [address] [place] [address] Luis Luna M.A. [facility] HOSPICE VISIT 01/10/2025 10:15 AM CDT Home Care Visit [address] [place] [address] Qi May QUALITY ASSURANCE SUPERVISOR CHASSIS AIDE HOME VISIT 01/08/2025 10:00 AM CDT Home Care Visit [address] [place] [address] Sharon Avila, RN SN HOSPICE VISIT 01/04/2025 9:30 AM CDT Home Care Visit [address] [place] [address] Sharon Avila, RN SN HOSPICE VISIT 01/03/2025 Plan of Care Documentation [address] [place] [address] 01/03/2025 1:00 PM CDT Home Care Visit [address] [place] [address] Cara Hsu MSW [facility] HOSPICE VISIT 01/03/2025 10:00 AM CDT Home Care Visit [address] [place] [address] Kaushik Smith, QUALITY ASSURANCE SUPERVISOR CHASSIS AIDE HOME VISIT 01/01/2025 10:30 AM CDT Home Care Visit [facility] [address] [place] [address] [address] [place] [address] Sharon Avila, RN SN HOSPICE VISIT 12/28/2024 10:30 AM CDT Home Care Visit [facility] [address] [place] [address] [address] [place] [address] Sharon Avila, RN SN HOSPICE VISIT 12/27/2024 12:00 PM CDT Home Care Visit [address] [place] [address] Kaushik Smith, QUALITY ASSURANCE SUPERVISOR CHASSIS AIDE HOME VISIT 12/26/2024 Home Care Visit [facility] [address] [place] [address] [address] [place] [address] Neeta Gagnon, [facility] HOSPICE PHONE CALL 12/26/2024 9:15 AM CDT Home Care Visit [address] [place] [address] Neeta Gagnon, DESIGN PRINTING MACHINE [facility] 12/25/2024 12:30 PM CDT Home Care Visit [address] [place] [address] Sharon Avila, RN SN HOSPICE VISIT 12/22/2024 Home Care Visit [address] [place] [address] Neeta Gagnon, DESIGN PRINTING MACHINE [facility] PHONE CALL 12/22/2024 Home Care Visit [address] [place] [address] Neeta Gagnon, DESIGN PRINTING MACHINE [facility] PHONE CALL 12/21/2024 Orders Only [facility] Health Information Management [address] [place] [address] Scanning, Provider 12/21/2024 Home Care Visit [address] [place] [address] Mona Macario, RN CASE COMMUNICATION 12/21/2024 Home Care Visit [facility] [address] [facility] [address] [place] [address] Cathy Bolden, RN SN TRIAGE ENCOUNTER 12/21/2024 Home Care Visit [facility] [address] [facility] [address] [place] [address] Kalin NeetaMSW DESIGN PRINTING MACHINE SETTER HOSPICE PHONE CALL 12/21/2024 Home Care Visit [facility] [address] [facility] [address] [place] [address] Sharon Avila, RN CASE COMMUNICATION 12/21/2024 Home Care Visit [facility] [address] [facility] [address] [place] [address] Emilie Blair, JU SN TRIAGE ENCOUNTER 12/21/2024 Home Care Visit [facility] [address] [place] [address] [address] [place] [address] Emilie Blair, RN SN TRIAGE ENCOUNTER 12/21/2024 Home Care Visit [facility] [address] [facility] [address] [place] [address] Cathy Bolden, RN SN TRIAGE ENCOUNTER 12/21/2024 9:00 AM CDT Home Care Visit [facility] [address] [facility] [address] [place] [address] Sharon Avila, RN SN HOSPICE VISIT 12/20/2024 Plan of Care Documentation [address] [place] [address] 12/18/2024 2:00 PM CDT Home Care Visit [address] [place] [address] Sharon Avila, RN SN HOSPICE VISIT 12/16/2024 Home Care Visit [address] [place] [address] Leeanne Avila, JU SN TRIAGE ENCOUNTER 12/14/2024 10:00 AM CDT Home Care Visit [address] [place] [address] Sharon Avila, RN SN HOSPICE VISIT 12/13/2024 2:00 PM CDT Home Care Visit [address] [place] [address] Luis Luna M.A. [facility]ICE VISIT 12/13/2024 12:00 PM CDT Home Care Visit [address] [place] [address] Neeta Gagnon MSW DESIGN PRINTING MACHINE SETTER HOSPICE VISIT 12/13/2024 11:00 AM CDT Home Care Visit [address] [place] [address] Kaushik Smith CNA AIDE HOME VISIT 12/12/2024 Home Care Visit [address] [place] [address] Dania Shelton RN SN TRIAGE ENCOUNTER 12/11/2024 12:00 PM CDT Home Care Visit [address] [place] [address] Sharon Avila, JU SN HOSPICE VISIT 12/09/2024 Home Care Visit [address] [place] [address] Norris Goldstein RN SN TRIAGE ENCOUNTER 12/07/2024 Home Care Visit [address] [place] [address] Sharon Avila, RN CASE COMMUNICATION 12/07/2024 9:30 AM CDT Home Care Visit [address] [place] [address] Sharon Avila, RN SN HOSPICE VISIT 12/06/2024 Plan of Care Documentation [address] [place] [address] 12/06/2024 11:00 AM CDT Home Care Visit [address] [place] [address] Luis, Neenshell, QUALITY ASSURANCE SUPERVISOR CHASSIS AIDE HOME VISIT 12/04/2024 12:30 PM CDT Home Care Visit [address] [place] [address] Sharon Avila, RN SN HOSPICE VISIT 12/01/2024 12:00 PM CDT Home Care Visit [address] [place] [address] [place], Neenshell, QUALITY ASSURANCE SUPERVISOR CHASSIS AIDE HOME VISIT 11/30/2024 1:00 PM CDT Home Care Visit [address] [place] [address] Sharon Avila, RN SN HOSPICE VISIT 11/27/2024 11:00 AM CDT Home Care Visit [address] [place] [address] Siri Goodrich, JU SN HOSPICE VISIT 11/24/2024 10:00 AM CDT Home Care Visit [address] [place] [address] Luis, Neenskathleenl, QUALITY ASSURANCE SUPERVISOR CHASSIS AIDE HOME VISIT 11/23/2024 11:55 AM CDT Home Care Visit [address] [place] [address] Sharon Avila, RN SN HOSPICE VISIT 11/22/2024 Home Care Visit [address] [place] [address] Sharon Avila, RN CASE COMMUNICATION 11/22/2024 Home Care Visit [address] [place] [address] Emilie Blair, RN SN TRIAGE ENCOUNTER 11/22/2024 11:00 AM CDT Home Care Visit [address] [place] [address] Neeta Gagnon MSW DESIGN PRINTING MACHINE SETTER HOSPICE VISIT 11/22/2024 Plan of Care Documentation [address] [place] [address] 11/22/2024 Home Care Visit [address] [place] [address] Sharon Avila, RN CASE COMMUNICATION 11/22/2024 12:30 PM CDT Home Care Visit [address] [place] [address] Naomie Darby RN SN HOSPICE VISIT 11/22/2024 Home Care Visit [address] [place] [address] Sharon Avila, RN CASE COMMUNICATION 11/22/2024 Home Care Visit [address] [place] [address] Emilie Blair, RN SN TRIAGE ENCOUNTER 11/22/2024 Home Care Visit [address] [place] [address] Cathy Bolden RN SN TRIAGE ENCOUNTER 11/20/2024 10:30 AM CDT Home Care Visit [address] [place] [address] Sharon Avila, RN SN HOSPICE VISIT 11/19/2024 Home Care Visit [address] [place] [address] Bandar Angeles RN SN TRIAGE ENCOUNTER 11/17/2024 11:00 AM CDT Home Care Visit [address] [place] [address] Siri Goodrich, JU SN HOSPICE VISIT 11/16/2024 Home Care Visit [address] [place] [address] Miranda Garcia, RN SN TRIAGE ENCOUNTER 11/16/2024 6:00 PM CDT Home Care Visit [address] [place] [address] Elfego lAvarez, JU SN HOSPICE VISIT 11/16/2024 Home Care Visit [address] [place] [address] Miranda Garcia, JU SN TRIAGE ENCOUNTER 11/16/2024 Home Care Visit [address] [place] [address] Cathy Bolden RN SN TRIAGE ENCOUNTER 11/16/2024 2:30 PM CDT Home Care Visit [address] [place] [address] Luis Luna M.A. [facility]ICE ASSESSMENT 11/15/2024 Home Care Visit [address] [place] [address] Neeta Gagnon [facility] DESIGN PRINTING MACHINE SETTER HOSPICE PHONE CALL 11/15/2024 Home Care Visit [address] [place] [address] Anh Park, JU SN TRIAGE ENCOUNTER 11/15/2024 Orders Only [facility] [address] [place] [address] Daniel Rodriguez MD 11/15/2024 11:30 AM CDT Home Care Visit [address] [place] [address] Siri Goodrich, RN SN HOSPICE VISIT 11/15/2024 11:15 AM CDT Home Care Visit [address] [place] [address] Neeta Gagnon MSW DESIGN PRINTING MACHINE SETTER HOSPICE ASSESSMENT 11/14/2024 Plan of Care Documentation [address] [place] [address] 11/14/2024 12:30 PM CDT Home Care Visit [address] [place] [address] Divya Whittaker, JU SN HOSPICE COMPREHENSIVE ASSESSMENT 11/02/2024 12:26 PM JUNK DEALER - 11/14/2024 2:18 PM CDT Hospital Encounter [place] [address] [address] [place] [address] Gee Yao DO Smith, MD Audrey Santos Omar Ali Mohammed, MD Lopez, Manuel Emilio, MD Altered mental status, unspecified altered mental status type (Primary Dx); Elevated troponin I level; Severe dementia, unspecified dementia type, unspecified whether behavioral, psychotic, or mood disturbance or anxiety (HCC) Discharge Disposition: Discharge to a retirement care hospital from Last 3 Months Allergies Active Allergy [...] a home health clinician.] 4 patch 11 5 026 Active Additional Information Patient not taking.Reported [...] mouth daily. Indications: anxiousness associated with depression Active Active Problems Problem Noted Date Diagnosed [...] 09/24/2020 Assessment & Plan (09/24/2020 7:33 PM JUNK DEALER): Advised to get labs now, ordered STAT CBC, CMP, and lipase. Instructed to go to ER overnight for worsening symptoms. Recommended calling tomorrow to schedule follow-up with PCP. Subconjunctival hemorrhage of right eye 09/24/19 21 Assessment & Plan (09/24/2020 7:32 PM JUNK DEALER): Advised not to stop Xarelto without consulting with PCP and instructed to keep upcoming appointment with map mounter. 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 Pelvic fracture 01/15/2020 Recurrent falls while walking 01/15/2020 Restless leg syndrome 01/15/2020 Dupuytren contracture 01/15/2020 Chronic kidney disease (CKD), stage III (moderat e) 07/05/2019 Lumbar spinal stenosis 07/05/2019 OAB (overactive bladder) 07/05/2019 Liver mass 06/21/2018 Hernia, inguinal, unilateral 06/09/2018 KIMBERLY (acute kidney injury) ([facility]) 05/20/2018 Assessment & Plan (02/02/2022 2:53 PM CDT): - resolved Chronic deep vein thrombosis (DVT) of proximal vein of lower extremity ([facility]) 05/20/2018 Weakness 05/19/2018 DM2 (diabetes [...] reglan Assessment & Plan (09/24/2020 7:31 PM JUNK DEALER): Chronic, stable, controlled with medication-continued on BID Pepcid, advised follow-up with PCP to discuss EGD. Hiatal hernia 04/11/2018 Depression 04/11/2018 History of deep venous throm bosis (DVT) of distal vein of right lower extremity 04/11/2018 Primary osteoarthritis of left knee 02/11/2018 Overview (02/11/2018): Added automatically from request for surgery [id number] History of esophageal stricture 10/25/2017 Neuropathy 07/21/2017 Low iron 06/24/2016 Dysphagia 01/24/2015 Assessment & Plan (09/24/2020 7:32 PM JUNK DEALER): Chronic, worsening, with history of esophageal strictures, [...] 10/21/2022 Assessment & Plan (09/24/2020 7:33 PM JUNK DEALER): Advised to get labs now, ordered STAT [...] drink = 0.6 oz pur e alcohol) [facility] Utilities Answer Date Recorded In the past 12 months has [employer], gas, oil, or water [employer] threatened to shut off services in your [...] often do you attend chur ch or moravian services? Never 11/03/2024 Do you belong to any clubs o r organizations such as amish groups, unions, fraternal or athletic groups, or [...] any time in the past 12 m [facility], were you homeless or living in a half-way (including now)? No 11/03/2024 Personal Safety Answer Date Recorded Have you ever been in or are you currently in a harmful physical or emotional relationship or is someone making you feel afraid or unsafe? Patient unable to answer 11/02/2024 Comments No Sex and Gender Information Value Date Recorded Sex Assigned at Not on file Legal Sex Female 7:06 PM JUNK DEALER Gender Identity Not on file Sexual Orientation [...] on file Medical Devices Implanted Type Area Sterile Technician Device Identifier Shelf Expiration Date Model / Serial / Lot [employer] 3122-040 Smartset Medium Viscosity Cement 40gm Bone Sterile - [id number] Implanted:Qty: 1 on 04/12/2018 by Adrian Powell MD at [facility] [employer] [id number] 07/29/2019 3122-040 / / [employer] 3122-040 Smartset Medium Viscosity Cement 40gm Bone Sterile - [id number] Implanted:Qty: 1 on 04/12/2018 by Adrian Powell MD at [facility] [employer] [id number] 06/29/2019 3122-040 / / [employer] [id number] Attune 5mm Cruciate Retaining Fix Bearing Knee 5 Insert Tibial - [id number] Implanted:Qty: 1 on 04/12/2018 by Adrian Powell MD at [facility] [employer] [id number] 12/27/2022 [id number] / / [employer] [id number] Attune Cemented Cruciate Retaining Knee Left 5 Narrow Component - [id number] Implanted:Qty: 1 on 04/12/2018 by Adrian Powell MD at [facility] [employer] [id number] 12/28/2027 [id number] / / [employer] [id number] Attune S+ Cement Fix Bearing Knee 5 Baseplate Tibial - [id number] Implanted:Qty: 1 on 04/12/2018 by Adrian Powell MD at [facility] Orthopa[employer]ics [facility] [id number] 09/29/2027 [id number] / / Procedures Procedure Name Priority Date/Time Associated Diagnosis Comments SCAN - RADIOLOGY/IMAGING 01/26/2025 SCAN - RADIOLOGY/IMAGING 12/21/2024 POCT GLUCOSE DEVICE [...] CDT EGFR Routine 11/10/2024 4:20 AM CDT LIPID PANEL Routine 11/03/2024 2:21 AM JUNK DEALER HEMOGLOBIN A1C STAT 09/28/2024 12:13 PM JUNK DEALER ALBUMIN CREATININE RATIO, URINE Routine 11/01/2023 9:30 AM JUNK DEALER Medicare annual wellness visit, subsequent Neuropathy Fibromyalgia Dyslipidemia Type 2 diabetes mellitus with stage 3b chronic kidney disease, without long-term current use of insulin (HCC) Stage 3b chronic kidney disease (HCC) DEXA AXIAL SKELETON BONE DENSITY 1 OR MORE SITES 02/29/2020 9:31 AM CDT from Last 3 Months or Most Recently Relevant to Health Maintenance Results * SCAN - RADIOLOGY/IMAGING (01/26/2025) Anatomical Region Laterality Modality Other us Provider Scanning Final Result * SCAN - RADIOLOGY/IMAGING (12/21/2024) Anatomical Region Laterality Modality Other us Provider Scanning Final Result * POCT glucose (11/14/2024 9:05 AM CDT) Glucose, POC 152 70 - 199 mg/dL Comment:Testing performed by : [address] [id number] Glucose comment 1 Use This Result MARCELINO HAYWOOD Comment:Testing performed by : [address] [id number] Glucose comment 2 RN/MD Notified MARCELINO HAYWOOD Comment:Testing performed by : [address] [id number] Blood 11/14/2024 9:05 AM CDT 11/14/2024 9:05 AM CDT us Nahid Kim MD LAB POCT ORDERABLES - DEV ICE Final Result MARCELINO HAYWOOD [address] [place] [address] [place] [address] * POCT glucose (11/13/2024 8:13 PM CDT) Glucose, POC 184 70 - 199 mg/dL Comment:Testing performed by : [address] [id number] Blood 11/13/2024 8:13 PM CDT 11/13/2024 8:13 PM CDT Conor Ventura MD LAB POCT ORDERABLE S - DEVICE Final Result Performing Organization Address [facility] Co de Phone Number MARCELINO [address] [address] * POCT glucose (11/13/2024 7:49 AM CDT) Glucose, POC 139 70 - 199 mg/dL Comment:Testing performed by : [facility], [address] [place] [address]., [address] Glucose comment 1 Use This Result MARCELINO Comment:Testing performed by : [address] [address] Glucose comment 2 RN/MD Notified MARCELINO Comment:Testing performed by : [address] [id number] Blood 11/13/2024 7:49 AM CDT 11/13/2024 7:49 AM CDT Conor Ventura MD LAB POCT ORDERABLE S - DEVICE Final Result Performing Organization Address City/[facility] [address]/ZIP Co de Phone Number MARCELINO [address] [address] * POCT glucose (11/13/2024 4:21 AM CDT) Glucose, POC 131 70 - 199 mg/dL Comment:Testing performed by : [address] [address] Glucose comment 1 Use This Result MARCELINO Comment:Testing performed by : [facility], [address] [place] [address]., [id number] Blood 11/13/2024 4:21 AM CDT 11/13/2024 4:21 AM CDT Conor Ventura MD LAB POCT ORDERABLE S - DEVICE Final Result Performing Organization Address [facility] [address]/[facility] Co de Phone Number OR[address] [place] [address] * POCT glucose (11/13/2024 12:22 AM CDT) Glucose, POC 174 70 - 199 mg/dL Comment:Testing performed by : [address] [address] Glucose comment 1 Use This Result MARCELINO Comment:Testing performed by : [address] [id number] Blood 11/13/2024 12:2 2 AM CDT 11/13/2024 12:22 AM CDT Result [facility] oCnor Ventura MD LAB POCT ORDERABLE S - DEVICE Final Result Performing Organization Address [facility] de Phone Number [address] [place] [address] * POCT glucose (11/12/2024 8:50 PM CDT) Glucose, POC 167 70 - 199 mg/dL Comment:Testing performed by : [address] [id number] Blood 11/12/2024 8:50 PM CDT 11/12/2024 8:50 PM CDT Conor Ventura MD LAB POCT ORDERABLE S - DEVICE Final Result Performing Organization Address City/[facility] [address]/ZIP Co de Phone Number [address] [place] [address] * POCT glucose (11/12/2024 5:43 PM CDT) Glucose, POC 157 70 - 199 mg/dL Comment:Testing performed by : [address] [address] Glucose comment 1 Use This Result MARCELINO Comment:Testing performed by : [address] [address] Glucose comment 2 RN/MD Notified MARCELINO Comment:Testing performed by : [address] [id number] Blood 11/12/2024 5:43 PM CDT 11/12/2024 5:43 PM CDT Conor Ventura MD LAB POCT ORDERABLE S - DEVICE Final Result Performing Organization Address City/[facility] [address]/ZIP Co de Phone Number MARCELINO [address] [address] * POCT glucose (11/12/2024 11:50 AM CDT) [facility] Glucose, POC 175 70 - 199 mg/dL Comment:Testing performed by : [address] [address] Glucose comment 1 Use This Result MARCELINO Comment:Testing performed by : [address] [address] Glucose comment 2 RN/MD Notified MARCELINO Comment:Testing performed by : [address] [address] Blood 11/12/2024 11:5 0 AM CDT 11/12/2024 11:50 AM CDT Conor Ventura MD LAB POCT ORDERABLE S - DEVICE Final Result MARCELINO [facility] [place] [address] * POCT glucose (11/12/2024 8:11 AM CDT) Glucose, POC 120 70 - 199 mg/dL Comment:Testing performed by : [address] [address] Glucose comment 1 Use This Result MARCELINO Comment:Testing performed by : [address] [address] Glucose comment 2 RN/MD Notified MARCELINO Comment:Testing performed by : [address] [id number] Blood 11/12/2024 8:11 AM CDT 11/12/2024 8:11 AM CDT Conor Ventura MD LAB POCT ORDERABLE S - DEVICE Final Result Performing Organization Address City/[facility] [address]/[facility] Co de Phone Number [address] [place] [address] * POCT glucose (11/12/2024 4:20 AM CDT) Glucose, POC 147 70 - 199 mg/dL Comment:Testing performed by : [address], [address] Glucose comment 1 Use This Result MARCELINO Comment:Testing performed by : [address] [id number] Blood 11/12/2024 4:20 AM CDT 11/12/2024 4:20 AM CDT Conor Ventura MD LAB POCT ORDERABLE S - DEVICE Final Result Performing Organization Address City/[facility] [address]/[facility] Co de Phone Number [address] [place] [address] * POCT glucose (11/11/2024 11:52 PM CDT) Glucose, POC 153 70 - 199 mg/dL Comment:Testing performed by : [address] [place]., [address] Glucose comment 1 Use This Result MARCELINO Comment:Testing performed by : [address] [id number] Blood 11/11/2024 11:5 2 PM CDT 11/11/2024 11:52 PM CDT Conor Ventura MD LAB POCT ORDERABLE S - DEVICE Final Result Performing Organization Address [facility] de Phone Number OR[address] [address] * POCT glucose (11/11/2024 8:09 PM CDT) Glucose, POC 184 70 - 199 mg/dL Comment:Testing performed by : [address] [address] Glucose comment 1 Use This Result MARCELINO Comment:Testing performed by : [address] [id number] Blood 11/11/2024 8:09 PM CDT 11/11/2024 8:09 PM CDT Conor Ventura MD LAB POCT ORDERABLE S - DEVICE Final Result Performing Organization Address [facility] de Phone Number [address] [address] * POCT glucose (11/11/2024 5:40 PM CDT) Glucose, POC 132 70 - 199 mg/dL Comment:Testing performed by : [address] [address] Glucose comment 1 Use This Result MARCELINO Comment:Testing performed by : [address] [address] Blood 11/11/2024 5:40 PM CDT 11/11/2024 5:40 PM CDT Conor Ventura MD LAB POCT ORDERABLE S - DEVICE Final Result Performing Organization Address [facility] Co de Phone Number MARCELINO [facility] [place] [address] * POCT glucose (11/11/2024 12:01 PM CDT) Glucose, POC 177 70 - 199 mg/dL Comment:Testing performed by : [address] [address] Glucose comment 1 Use This Result MARCELINO HAYWOOD Comment:Testing performed by : [address] [address] Glucose comment 2 RN/MD Notified MARCELINO HAYWOOD Comment:Testing performed by : [address] [address] Blood 11/11/2024 12:0 1 PM CDT 11/11/2024 12:01 PM CDT Conor Ventura MD LAB POCT ORDERABLE S - DEVICE Final Result Performing Organization Address [facility] Co de Phone Number MARCELINO [address] [place] [address] * eGFR (11/10/2024 4:20 AM CDT) eGFR 84 >=60 mL/min/1. 73 m2 Comment: [...] was last reviewed 2021. Testing performed by: [facility], [address] [place] [address]., [address] Blood 11/10/2024 4:20 AM CDT 11/10/2024 4:39 AM CDT Conor Ventura MD LAB BLOOD ORDERABL ES Final Result MARCELINO [address] [facility] Department [place] [address] * (ABNORMAL) Lipid panel (11/03/2024 2:21 AM JUNK DEALER) Cholesterol 148 30 - 199 mg/dL Comment: [...] last revised on 2018. Testing performed by: [facility], [address] [place] [address]., [address] Triglycerides 150(H) <=149 mg/dL MARCELINO HAYWOOD Comment: [...] last revised on 2018. Testing performed by: [address] [address] HDL 34(L) >=40 mg/dL MARCELINO Comment: Interpretive [...] last revised on 2018. Testing performed by: [address] [address] LDL, calculated 88 <=129 mg/dL MARCELINO Comment: [...] last revised on 2024. Testing performed by: [address] [address] Non-HDL Cholesterol 114 mg/dL MARCELINO Comment: Interpretive [...] last revised on 2018. Testing performed by: [address] [address] Chol/HDL ratio 4 MARCELINO Comment:Testing performed by : [address] [address] Blood 11/03/2024 2:21 AM JUNK DEALER 11/03/2024 2:57 AM JUNK DEALER us Ananya MEANS LAB BLOOD ORDERABLES Final Re sult Performing Organization Address [facility] [address]/[facility] de Phone Number [address] [place] [address] * (ABNORMAL) Hemoglobin A1c (09/28/2024 12:13 PM JUNK DEALER) Hgb A1C 7.7(H) 4.0 - 5.6 % Estimated Average Glucose 174 mg/dL MARCELINO Comment: The ADA recommends reporting an estimated Average Glucose (eAG) with all Hemoglobin A1c results using the equation derived from a study of 507 normal and diabetic adults. Minority populations were underrepresented and children were not included. (Diabetes Care 31:6978-0267, 2008). The eAG is not equivalent to a fasting glucose. Blood 09/28/2024 12:1 3 PM JUNK DEALER 09/28/2024 12:16 PM JUNK DEALER us Mackenzie Carey MOTTLER OPERATOR LAB BLOOD ORDERABLES Final R esult Performing Organization Address [facility] [address]/[facility] Co de Phone Number [address] [place] [address] * (ABNORMAL) Albumin Creatinine Ratio, Urine (11/01/2023 9:30 AM JUNK DEALER) Albumin Ur 50.5 mg/L MARCELINO HAYWOOD Comment: Interpretive Data No reference range established. Current interpretive data was last revised 2019. Testing performed by: [address] [address] Creatinine Ur 101.6 mg/dL MARCELINO Comment: Interpretive Data No reference range established. Current interpretive data was last revised 2019. Testing performed by: [address] [address] Albumin Creatinine Ratio, Ur 50(H) 1 - 29 mg/g MARCELINO Comment:Testing performed by : [address] [address] Urine 11/01/2023 9:30 AM JUNK DEALER 11/01/2023 12:14 PM JUNK DEALER us Donn Bonilla DO LAB URINE ORDERABLES Fin al Result Performing Organization Address City/State/[facility] Co de Phone Number MARCELINO [address] [facility] Department of Laboratories [place], [place] [id number] * Dexa Axial Skeleton Bone Density 1 or 2 Site (02/29/2020 9:31 AM CDT) Anatomical Region Laterality Modality Body N/A Radiographic Rosa Isela ging 03/01/2020 10:5 7 AM CDT Narrative 03/01/2020 11:00 AM CDT Patient Name: SHARI KAISER Ordering Dr: Donn Bonilla DO D.O.B: 1940 Exam Date: 02/29/20930 Age: 79 Sex: Female MR#: [id number] Loc: RADIOLOGY REPORT Order #[id number] Bone Density Bone Density Hip/Spine (STD) Signed EXAM DESCRIPTION: Bone Density Hip/Spine (STD) REASON FOR STUDY: 79 year old female with given history of osteoarthritis. 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 MD: Report ID: [id number] Reading Location: [id number] REPORT ELECTRONICALLY SIGNED IN OTHER VENDOR SYSTEM Resulting Agency Comment O Procedure Note Alonzo Canchola MD - 03/01/2020 Patient Name: SHARI KAISER Dr: Donn Bonilla DO, D.O.B: 1940 Exam Date: 02/29/20930 Age: 79 Sex: Female MR#: [id number] Loc: RADIOLOGY REPORT Order #[id number] Bone Density Bone Density Hip/Spine (STD) Signed EXAM DESCRIPTION: Bone Density Hip/Spine (STD) REASON FOR STUDY: 79 year old female with given history ofosteoarthritis. 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 (gown and gloves) - not eligible for IP review until 6 months after positive culture - Colin HAM, RN 11/15/24 11/04/2024 11/04/2024 Insurance [employer] MEDICARE [facility] [place] [id number] [facility] [place] [address] [place] [address] [employer] [facility] [place] [address] [place] [address] Advance Directives For more information, please contact: [phone] Documents on File Type Date Recorded Patient Management Sme Expl anation ADVANCE DIRECTIVE 11/14/2024 DNR ADVANCE DIRECTIVE 10/03/2024 3:26 PM Power of Vice President Of Human Resources-Medical * DNR (Latest Code Status on File) [...] 12:00 PM 10/08/2024 7:19 PM Care Teams Water Pollution Control Technician Relationship Specialty Start Date End Date Donn Bonilla DO [address] [place] [id number] PCP - General Family Medicine 07/05/19 Juan Herrera MD [address] [place] [address] [phone] Credit Card Control Clerk Cardiovascular Disease 11/14/20 Mona Islas, MOTTLER OPERATOR [address] [place] [address] [phone] Nurse Practitioner 05/27/23
--- OUTSIDE RECORDS SUMMARY | 2025-02-11 20:09 | XMS_ITS | Encounter Summary ---
Author Organization [facility] Address [address] [place] [address] Care Team Providers Care Slasher Hand Name Role Phone Amparo Faustin MD Unavailable [phone] Donn Bonilla DO Primary Care Provider Encounter Details Date Type Department Care Team (Late st Contact Info) Description 02/21/2018 Abstract [facility] at [address] [address] Tera Doyle MA Social History Tobacco Use Types Packs/Day Years Used Date Smoking Tobacco: Never Smokeless Tobacco: Never Alcohol Use Standard Drinks/Week Comments No 0 (1 standard drink = 0.6 oz pur e alcohol) Comments No Sex and Gender Information Value Date Recorded Sex Assigned at Female 09/01/2018 2:46 PM CRITICAL CARE CNS Legal Sex Female 4:57 PM CDT Gender Identity Female 09/01/2018 2:46 PM CRITICAL CARE CNS Sexual Orientation Straight 09/01/2018 2: 46 PM CRITICAL CARE CNS Occupation Industry Job Start Date Job End [...] Rule Out 09/04/2021 09/04/2021 09/04/2021 9:49 AM CRITICAL CARE CNS COVID-19 Rule Out 09/04/2021 09/04/2021 09/04/2021 11:43 AM CRITICAL CARE CNS COVID-19 Confirmed 09/04/2021 09/04/2021 12:32 AM CRITICAL CARE CNS COVID-19 Rule Out 06/07/2022 06/07/2022 06/07/2022 8:15 AM CDT COVID-19 Rule Out 06/11/2022 06/11/2022 06/11/2022 11:13 AM CDT documented as of this encounter Care Teams Slasher Hand Relationship Specialty Start Date End Date Donn Bonilla DO [address] [place] [address] PCP - General FAMILY PRACTICE 06/14/19 Amparo Faustin MD [address] [place] [address] Pam Trial Judge CARDIOVASCULAR DISEASE 09/22/17 documented as of this encounter
--- OUTSIDE RECORDS SUMMARY | 2025-02-11 20:09 | XMS_ITS | Encounter Summary ---
Author Organization [facility] Address [address] [place] [address] Care Team Providers Care Division Road Supervisor Name Role Phone Donn Bonilla DO Primary Care Provider + Juan Herrera MD Unavailable Mona Islas NP Unavailable [phone] Rc Campo MD Unavailable [phone] Encounter Details Date Type Department Care Team (Late st Contact Info) Description 12/21/2024 Orders Only [facility] [address] [place] [address] Scanning, Provider Social History Tobacco Use Types Packs/Day Years Used Date Smoking Tobacco: Never Smokeless Tobacco: Never Alcohol Use Standard Drinks/Week Comments No 0 (1 standard drink = 0.6 oz pur e alcohol) [facility] Utilities Answer Date Recorded In the past 12 months has FIA [employer] electric, gas, oil, or water company threatened [...] often do you attend chur ch or anabaptist services? Never 11/03/2024 Do you belong to any clubs o r organizations such as quaker groups, unions, fraternal or athletic groups, or [...] any time in the past 12 m [facility], were you homeless or living in [...] on file Legal Sex Female 7:06 PM LABEL SEWER Gender Identity Not on file Sexual Orientation [...] documented as of this encounter Care Teams Division Road Supervisor Relationship Specialty Start Date End Date Donn Bonilla DO [address] [place] [id number] PCP - General Family Medicine 07/05/19 Rc Campo MD [address] [address] PCP - Hospice Attending 11/14/24 Juan Herrera MD [address] [place] [address] Machine Baster Cardiovascular Disease 11/14/20 Mona Islas NP [facility] [address] [address] Nurse Practitioner 05/27/23 documented as of this encounter
--- OUTSIDE RECORDS SUMMARY | 2025-02-11 20:09 | XMS_ITS | Clinical Summary ---
Author Organization [facility] Address [address] [place] [address] Care Team Providers Care Parole Director Name Role Phone Donn Bonilla DO Primary Care Provider + Juan Herrera MD Unavailable Mona Islas NP Unavailable [phone] Allergies Active Allergy Reactions Criticality Noted [...] 09/24/2020 Assessment & Plan (09/24/2020 7:33 PM BRAILLE TRANSLATOR): Advised to get labs now, ordered STAT CBC, CMP, and lipase. Instructed to go to ER overnight for worsening symptoms. Recommended calling tomorrow to schedule follow-up with PCP. Subconjunctival hemorrhage of right eye 09/24/19 21 Assessment & Plan (09/24/2020 7:32 PM BRAILLE TRANSLATOR): Advised not to stop Xarelto without consulting with PCP and instructed to keep upcoming appointment with supply room clerk. 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 Pelvic fracture 01/15/2020 Recurrent falls while walking 01/15/2020 Restless leg syndrome 01/15/2020 Dupuytren contracture 01/15/2020 Chronic kidney disease (CKD), stage III (moderat e) 07/05/2019 Lumbar spinal stenosis 07/05/2019 OAB (overactive bladder) 07/05/2019 Liver mass 06/21/2018 Hernia, inguinal, unilateral 06/09/2018 KIMBERLY (acute kidney injury) ([facility]) 05/20/2018 Assessment & Plan (02/02/2022 2:53 PM CDT): - resolved Chronic deep vein thrombosis (DVT) of proximal vein of lower extremity ([facility]) 05/20/2018 Weakness 05/19/2018 DM2 (diabetes mellitus, type [...] reglan Assessment & Plan (09/24/2020 7:31 PM BRAILLE TRANSLATOR): Chronic, stable, controlled with medication-continued on BID Pepcid, advised follow-up with PCP to discuss EGD. Hiatal hernia 04/11/2018 Depression 04/11/2018 History of deep venous throm bosis (DVT) of distal vein of right lower extremity 04/11/2018 Primary osteoarthritis of left knee 02/11/2018 Overview (02/11/2018): Added automatically from request for surgery [id number] History of esophageal stricture 10/25/2017 Neuropathy 07/21/2017 Low iron 06/24/2016 Dysphagia 01/24/2015 Assessment & Plan (09/24/2020 7:32 PM BRAILLE TRANSLATOR): Chronic, worsening, with history of esophageal strictures, [...] 10/21/2022 Assessment & Plan (09/24/2020 7:33 PM BRAILLE TRANSLATOR): Advised to get labs now, ordered STAT [...] Department Care Team Description 01/26/2025 Orders Only [facility] Health Information Management [address] [place] [address] Scanning, Provider 01/26/2025 Home Care Visit [address] [place] [address] Dania Shelton, RN SN TRIAGE ENCOUNTER 01/17/2025 11:00 AM CDT Home Care Visit [address] [place] [address] Sharon Avila, RN SN HOSPICE DISCHARGE 01/17/2025 11:00 AM CDT Home Care Visit [address] [place] [address] Kaushik Smith CNA AIDJessica HOME VISIT 01/17/2025 Plan of Care Documentation [address] [place] [address] 01/15/2025 10:00 AM CDT Home Care Visit [address] [place] [address] Sharon Avila, RN SN HOSPICE VISIT 01/11/2025 3:00 AM CDT Home Care Visit [address] [place] [address] Sharon Avila, RN SN HOSPICE VISIT 01/10/2025 2:30 PM CDT Home Care Visit [address] [place] [address] Luis Luna M.A. HEAD GREENSKEEPER HOSPICE VISIT 01/10/2025 10:15 AM CDT Home Care Visit [address] [place] [address] Qi May CNA AIDE HOME VISIT 01/08/2025 10:00 AM CDT Home Care Visit [facility] [address] [place] [address] Sharon Avila, JU SN HOSPICE VISIT 01/04/2025 9:30 AM CDT Home Care Visit [facility] [address] [place] [address] Sharon Avila, RN SN HOSPICE VISIT 01/03/2025 1:00 PM CDT Home Care Visit [facility] [address] [place] [address] Cara Hsu MSW ASSET CARD CLERK HOSPICE VISIT 01/03/2025 10:00 AM CDT Home Care Visit [facility] [address] [place] [address] Kaushik Smith, SPEECH LANGUAGE PATHOLOGIST ASSISTANT AIDE HOME VISIT 01/03/2025 Plan of Care Documentation [facility] [address] [place] [address] [address] [place] [address] 01/01/2025 10:30 AM CDT Home Care Visit [facility] [address] [place] [address] Sharon Avila RN SN HOSPICE VISIT 12/28/2024 10:30 AM CDT Home Care Visit [facility] [address] [place] [address] [address] [place] [address] Sharon Avila, RN SN HOSPICE VISIT 12/27/2024 12:00 PM CDT Home Care Visit [address] [place] [address] Kaushik Smith SPEECH LANGUAGE PATHOLOGIST ASSISTANT AIDE HOME VISIT 12/26/2024 9:15 AM CDT Home Care Visit [facility] [address] [place] [address] [address] [place] [address] Neeta Gagnon ASSET CARD CLERK ASSET CARD CLERK HOSPICE VISIT 12/26/2024 Home Care Visit [address] [place] [address] Neeta Gagnon, ASSET CARD CLERK ASSET CARD CLERK HOSPICE PHONE CALL 12/25/2024 12:30 PM CDT Home Care Visit [facility] [address] [facility] [address] [facility] [address] [address] [place] [address] Sharon Avila, RN SN HOSPICE VISIT 12/22/2024 Home Care Visit [facility] [address] [place] [address] Neeta Gagnon ASSET CARD CLERK ASSET CARD CLERK HOSPICE PHONE CALL 12/22/2024 Home Care Visit [facility] [address] [place] [address] Neeta Gagnon ASSET CARD CLERK ASSET CARD CLERK HOSPICE PHONE CALL 12/21/2024 9:00 AM CDT Home Care Visit [facility] [address] [place] [address] Sharon Avila, RN SN HOSPICE VISIT 12/21/2024 Orders Only [facility] Health Information Management [address] [place] [address] Scanning, Provider 12/21/2024 Home Care Visit [facility] [address] [place] [address] Mona Macario, RN CASE COMMUNICATION 12/21/2024 Home Care Visit [facility] [address] [place] [address] Cathy Bolden RN SN TRIAGE ENCOUNTER 12/21/2024 Home Care Visit [facility] [address] [place] [address] Neeta Gagnon, ASSET CARD CLERK ASSET CARD CLERK HOSPICE PHONE CALL 12/21/2024 Home Care Visit [facility] [address] [facility] [address] [place] [address] Sharon Avila, RN CASE COMMUNICATION 12/21/2024 Home Care Visit [facility] [address] [address] [place] [address] Emilie Blair, RN SN TRIAGE ENCOUNTER 12/21/2024 Home Care Visit [facility] [address] [facility] [address] [place] [address] Emilie Blair, RN SN TRIAGE ENCOUNTER 12/21/2024 Home Care Visit [facility] [address] [facility] [address] [place] [address] Cathy Bolden RN SN TRIAGE ENCOUNTER 12/20/2024 Plan of Care Documentation [facility] [address] [facility] [address] [place] [address] 12/18/2024 2:00 PM CDT Home Care Visit [facility] [address] [facility] [address] [place] [address] Sharon Avila, RN SN HOSPICE VISIT 12/16/2024 Home Care Visit [address] [place] [address] Leeanne Avila RN SN TRIAGE ENCOUNTER 12/14/2024 10:00 AM CDT Home Care Visit [facility] [address] [place] [address] [address] [place] [address] Sharon Avila, RN SN HOSPICE VISIT 12/13/2024 2:00 PM CDT Home Care Visit [facility] [address] [place] [address] [address] [place] [address] Luis Luna M.A. HEAD GREENSKEEPER HOSPICE VISIT 12/13/2024 12:00 PM CDT Home Care Visit [facility] [address] [place], [place] [address]y [address] [place] [address] Neeta Gagnon MSW ASSET CARD CLERK HOSPICE VISIT 12/13/2024 11:00 AM CDT Home Care Visit [facility] [address] [place], [place] [address]y [address] [place] [address] Kaushik Smith CNA AIDE HOME VISIT 12/12/2024 Home Care Visit [address] [place] [address] Dania Shelton, JU SN TRIAGE ENCOUNTER 12/11/2024 12:00 PM CDT Home Care Visit [address] [place] [address] Sharon Avila, JU SN HOSPICE VISIT 12/09/2024 Home Care Visit [address] [place] [address] Norris Goldstein RN SN TRIAGE ENCOUNTER 12/07/2024 9:30 AM CDT Home Care Visit [address] [place] [address] Sharon Avila, JU SN HOSPICE VISIT 12/07/2024 Home Care Visit [address] [place] [address] Sharon Avila, RN CASE COMMUNICATION 12/06/2024 11:00 AM CDT Home Care Visit [address] [place] [address] Kaushik Smith CNA AIDE HOME VISIT 12/06/2024 Plan of Care Documentation [address] [place] [address] 12/04/2024 12:30 PM CDT Home Care Visit [address] [place] [address] Sharon Avila, RN SN HOSPICE VISIT 12/01/2024 12:00 PM CDT Home Care Visit [address] [place] [address] Kaushik Smith CNA AIDE HOME VISIT 11/30/2024 1:00 PM CDT Home Care Visit [address] [place] [address] Sharon Avila, RN SN HOSPICE VISIT 11/27/2024 11:00 AM CDT Home Care Visit [facility] [address] [place] [address] Siri Goodrich, JU SN HOSPICE VISIT 11/24/2024 10:00 AM CDT Home Care Visit [facility] [address] [place] [address] Kaushik Smith CNA AIDE HOME VISIT 11/23/2024 11:55 AM CDT Home Care Visit [facility] [address] [place] [address] [address] [place] [address] Sharon Avila, RN SN HOSPICE VISIT 11/22/2024 12:30 PM CDT Home Care Visit [facility] [address] [place], [place] [address] [address] [place] [address] Naomie Darby RN SN HOSPICE VISIT 11/22/2024 11:00 AM CDT Home Care Visit [address] [place] [address] Neeta Gagnon ASSET CARD CLERK ASSET CARD CLERK HOSPICE VISIT 11/22/2024 Home Care Visit [address] [place] [address] Sharon Avila, RN CASE COMMUNICATION 11/22/2024 Home Care Visit [address] [place] [address] Emilie Blair, RN SN TRIAGE ENCOUNTER 11/22/2024 Plan of Care Documentation [address] [place] [address] 11/22/2024 Home Care Visit [address] [place] [address] Sharon Avila, RN CASE COMMUNICATION 11/22/2024 Home Care Visit [address] [place] [address] Sharon Avila, RN CASE COMMUNICATION 11/22/2024 Home Care Visit [address] [place] [address] Emilie Blair, RN SN TRIAGE ENCOUNTER 11/22/2024 Home Care Visit [address] [place] [address] Cathy Bolden RN SN TRIAGE ENCOUNTER 11/20/2024 10:30 AM CDT Home Care Visit [address] [place] [address] Sharon Avila, RN SN HOSPICE VISIT 11/19/2024 Home Care Visit [address] [place] [address] Bandar Angeles RN SN TRIAGE ENCOUNTER 11/17/2024 11:00 AM CDT Home Care Visit [address] [place] [address] Siri Goodrich RN SN HOSPICE VISIT 11/16/2024 6:00 PM CDT Home Care Visit [address] [place] [address] Elfego Alvarez RN SN HOSPICE VISIT 11/16/2024 2:30 PM CDT Home Care Visit [address] [place] [address] Luis Luna M.A. HEAD GREENSKEEPER HOSPICE ASSESSMENT 11/16/2024 Home Care Visit [address] [place] [address] Miranda Garcia, RN SN TRIAGE ENCOUNTER 11/16/2024 Home Care Visit [address] [place] [address] Miranda Garcia, RN SN TRIAGE ENCOUNTER 11/16/2024 Home Care Visit [address] [place] [address] Cathy Bolden RN SN TRIAGE ENCOUNTER 11/15/2024 11:30 AM CDT Home Care Visit [address] [place] [address] Siri Goodrich, JU SN HOSPICE VISIT 11/15/2024 11:15 AM CDT Home Care Visit [address] [place] [address] Neeta Gagnon, ASSET CARD [facility] ASSESSMENT 11/15/2024 Home Care Visit [address] [place] [address] Neeta Gagnon, [facility] HOSPICE PHONE CALL 11/15/2024 Home Care Visit [address] [place] [address] Anh Park RN SN TRIAGE ENCOUNTER 11/15/2024 Orders Only [facility] [address] [place] [address] Daniel Rodriguez MD 11/14/2024 12:30 PM CDT Home Care Visit [address] [place] [address] Divya Whittaker RN SN HOSPICE COMPREHENSIVE ASSESSMENT 11/14/2024 Plan of Care Documentation [address] [address] [place] [address] 11/02/2024 12:26 PM BRAILLE TRANSLATOR - 11/14/2024 2:18 PM CDT Hospital Encounter [facility] [address] [place] [address] Gee Yao DO Smith, MD Audrey Santos Omar Ali Mohammed, MD Lopez, Nahid Griggs MD Altered mental status, unspecified altered mental status type (Primary Dx); Elevated troponin I level; Severe dementia, unspecified dementia type, unspecified whether behavioral, psychotic, or mood disturbance or anxiety (HCC) Discharge Disposition: [facility] Last 3 Months Immunizations Immunization Administration [...] CATARACT EXTRACTION, BILATERAL CARDIAC CATHETERIZATION . E', [id number]? Medical History Medical History Date Comments Major [...] drink = 0.6 oz pur e alcohol) [facility] Utilities Answer Date Recorded In [...] often do you attend chur ch or holiness services? Never 11/03/2024 Do you belong to [...] any time in the past 12 m [facility], were you homeless or living in a correction (including now)? No 11/03/2024 Personal Safety Answer Date Recorded Have you ever been in or are you currently in a harmful physical or emotional relationship or is someone making you feel afraid or unsafe? Patient unable to answer 11/02/2024 Comments No Sex and Gender Information Value Date Recorded Sex Assigned at Not on file Legal Sex Female 7:06 PM BRAILLE TRANSLATOR Gender Identity Not on file Sexual Orientation [...] history exists Medical Devices Implanted Type Area Log Deckman Device Identifier Shelf Expiration Date Model / Serial / Lot [employer] 3122-040 Smartset Medium Viscosity Cement 40gm Bone Sterile - [id number] Implanted:Qty: 1 on 04/12/2018 by Adrian Powell MD at [facility] [employer] [id number] 07/29/2019 3122-040 / / [employer] 3122-040 Smartset Medium Viscosity Cement 40gm Bone Sterile - [id number] Implanted:Qty: 1 on 04/12/2018 by Adrian Powell MD at [facility] [employer] [id number] 06/29/2019 3122-040 / / [employer] [id number] Attune 5mm Cruciate Retaining Fix Bearing Knee 5 Insert Tibial - [id number] Implanted:Qty: 1 on 04/12/2018 by Adrian oPwell MD at [facility] [employer] [id number] 12/27/2022 [id number] / / [employer] [id number] Attune Cemented Cruciate Retaining Knee Left 5 Narrow Component - [id number] Implanted:Qty: 1 on 04/12/2018 by Adrian Powell MD at [facility] [employer] [id number] 12/28/2027 [id number] / / [employer] [id number] Attune S+ Cement Fix Bearing Knee 5 Baseplate Tibial - [id number] Implanted:Qty: 1 on 04/12/2018 by Adrian Powell MD at [facility] [employer] [id number] 09/29/2027 [id number] / / Procedures Procedure Name Priority Date/Time [...] CDT LIPID PANEL Routine 11/03/2024 2:21 AM BRAILLE TRANSLATOR HEMOGLOBIN A1C STAT 09/28/2024 12:13 PM BRAILLE TRANSLATOR ALBUMIN CREATININE RATIO, URINE Routine 11/01/2023 9:30 AM BRAILLE TRANSLATOR Medicare annual wellness visit, subsequent Neuropathy Fibromyalgia [...] * POCT glucose (11/14/2024 9:05 AM CDT) [facility] Signature Glucose, POC 152 70 - 199 mg/dL Comment:Testing performed by : [facility], [address] [place] [address], [place]., [address] Glucose comment 1 Use This Result MARCELINO HAYWOOD Comment:Testing performed by : [address] [address] Glucose comment 2 RN/MD Notified MARCELINO HAYWOOD Comment:Testing performed by : [address] [address] Blood 11/14/2024 9:05 AM CDT 11/14/2024 9:05 AM CDT us Nahid Kim MD LAB POCT ORDERABLES - DEV ICE Final Result Performing Organization Address [facility] Co de Phone Number [address] [address] * POCT glucose (11/13/2024 8:13 PM CDT) Glucose, POC 184 70 - 199 mg/dL Comment:Testing performed by : [address] [address] Blood 11/13/2024 8:13 PM CDT 11/13/2024 8:13 PM CDT Conor Ventura MD LAB POCT ORDERABLE S - DEVICE Final Result Performing Organization Address [facility] Co de Phone Number [address] [address] * POCT glucose (11/13/2024 7:49 AM CDT) Glucose, POC 139 70 - 199 mg/dL Comment:Testing performed by : [address] [address] Glucose comment 1 Use This Result MARCELINO HAYWOOD Comment:Testing performed by : [address] [address] Glucose comment 2 RN/MD Notified MARCELINO HAYWOOD Comment:Testing performed by : [address] [address] Blood 11/13/2024 7:49 AM CDT 11/13/2024 7:49 AM CDT Conor Ventura MD LAB POCT ORDERABLE S - DEVICE Final Result MARCELINO [facility] [place] [employer] [place] [address] * POCT glucose (11/13/2024 4:21 AM CDT) Glucose, POC 131 70 - 199 mg/dL Comment:Testing performed by : [address] [address] Glucose comment 1 Use This Result MARCELINO Comment:Testing performed by : [address] [address] Blood 11/13/2024 4:21 AM CDT 11/13/2024 4:21 AM CDT Conor Ventura MD LAB POCT ORDERABLE S - DEVICE Final Result Performing Organization Address [facility] de Phone Number [address] [address] * POCT glucose (11/13/2024 12:22 AM CDT) Glucose, POC 174 70 - 199 mg/dL Comment:Testing performed by : [address] [address] Glucose comment 1 Use This Result MARCELINO Comment:Testing performed by : [address] [address] Blood 11/13/2024 12:2 2 AM CDT 11/13/2024 12:22 AM CDT Conor Ventura MD LAB POCT ORDERABLE S - DEVICE Final Result Performing Organization Address City/[facility]/ZIP Co de Phone Number OR[address] [place] [employer] [place] [address] * POCT glucose (11/12/2024 8:50 PM CDT) Glucose, POC 167 70 - 199 mg/dL Comment:Testing performed by : [address] [address] Blood 11/12/2024 8:50 PM CDT 11/12/2024 8:50 PM CDT Conor Ventura MD LAB POCT ORDERABLE S - DEVICE Final Result Performing Organization Address [facility] de Phone Number [facility] [address] [facility] [place] [employer] [address] * POCT glucose (11/12/2024 5:43 PM CDT) Glucose, POC 157 70 - 199 mg/dL Comment:Testing performed by : [address] [address] Glucose comment 1 Use This Result MARCELINO Comment:Testing performed by : [address] [address] Glucose comment 2 RN/MD Notified MARCELINO Comment:Testing performed by : [address] [address] Blood 11/12/2024 5:43 PM CDT 11/12/2024 5:43 PM CDT Conor Ventura MD LAB POCT ORDERABLE S - DEVICE Final Result Performing Organization Address [facility] Co de Phone Number [place] [phone] [facility] [place] [employer] [place] [address] * POCT glucose (11/12/2024 11:50 AM CDT) Glucose, POC 175 70 - 199 mg/dL Comment:Testing performed by : [address] [address] Glucose comment 1 Use This Result MARCELINO Comment:Testing performed by : [address] [address] Glucose comment 2 RN/MD Notified MARCELINO Comment:Testing performed by : [address] [address] Blood 11/12/2024 11:5 0 AM CDT 11/12/2024 11:50 AM CDT Conor Ventura MD LAB POCT ORDERABLE S - DEVICE Final Result Performing Organization Address [facility] de Phone Number MARCELINO [facility] [place] [address] * POCT glucose (11/12/2024 8:11 AM CDT) Glucose, POC 120 70 - 199 mg/dL Comment:Testing performed by : [address] [address] Glucose comment 1 Use This Result MARCELINO Comment:Testing performed by : [address] [address] Glucose comment 2 RN/MD Notified [facility] Comment:Testing performed by : [address] [address] Blood 11/12/2024 8:11 AM CDT 11/12/2024 8:11 AM CDT Conor Ventura MD LAB POCT ORDERABLE S - DEVICE Final Result Performing Organization Address [facility] Co de Phone Number [address] [place] [employer] [place] [address] * POCT glucose (11/12/2024 4:20 AM CDT) Glucose, POC 147 70 - 199 mg/dL Comment:Testing performed by : [address] [address] Glucose comment 1 Use This Result [facility] Comment:Testing performed by : [address] [address] Blood 11/12/2024 4:20 AM CDT 11/12/2024 4:20 AM CDT Conor Ventura MD LAB POCT ORDERABLE S - DEVICE Final Result Performing Organization Address City/[facility]/ZIP Co de Phone Number [address] [address] * POCT glucose (11/11/2024 11:52 PM CDT) Glucose, POC 153 70 - 199 mg/dL Comment:Testing performed by : [address] [address] Glucose comment 1 Use This Result MARCELINO Comment:Testing performed by : [address] [address] Blood 11/11/2024 11:5 2 PM CDT 11/11/2024 11:52 PM CDT Conor Ventura MD LAB POCT ORDERABLE S - DEVICE Final Result Performing Organization Address [facility] de Phone Number [address] [address] * POCT glucose (11/11/2024 8:09 PM CDT) Glucose, POC 184 70 - 199 mg/dL Comment:Testing performed by : [address] [address] Glucose comment 1 Use This Result MARCELINO Comment:Testing performed by : [address] [address] Blood 11/11/2024 8:09 PM CDT 11/11/2024 8:09 PM CDT Conor Ventura MD LAB POCT ORDERABLE S - DEVICE Final Result Performing Organization Address City/[facility]/ZIP Co de Phone Number [place] [phone] [place] [address] * POCT glucose (11/11/2024 5:40 PM CDT) Glucose, POC 132 70 - 199 mg/dL Comment:Testing performed by : [address] [address] Glucose comment 1 Use This Result MARCELINO Comment:Testing performed by : [address] [address] Blood 11/11/2024 5:40 PM CDT 11/11/2024 5:40 PM CDT Conor Ventura MD LAB POCT ORDERABLE S - DEVICE Final Result Performing Organization Address [facility] Co de Phone Number [place] [phone] [place] [address] * POCT glucose (11/11/2024 12:01 PM CDT) [facility] Glucose, POC 177 70 - 199 mg/dL Comment:Testing performed by : [address] [address] Glucose comment 1 Use This Result MARCELINO Comment:Testing performed by : [address] [address] Glucose comment 2 RN/MD Notified MARCELINO Comment:Testing performed by : [address] [address] Blood 11/11/2024 12:0 1 PM CDT 11/11/2024 12:01 PM CDT Conor Ventura MD LAB POCT ORDERABLE S - DEVICE Final Result Performing Organization Address City/[facility]/ZIP Co de Phone Number [phone] [place] [address] * eGFR (11/10/2024 4:20 AM CDT) eGFR [...] was last reviewed 2021. Testing performed by: [address] [address] Blood 11/10/2024 4:20 AM CDT 11/10/2024 4:39 AM CDT us Conor Ventura MD LAB BLOOD ORDERABL ES Final Result [facility] [address] [facility] Department of Laboratories [place], [place] [id number] * (ABNORMAL) Lipid panel (11/03/2024 2:21 AM BRAILLE TRANSLATOR) Cholesterol 148 30 - 199 mg/dL Comment: [...] last revised on 2018. Testing performed by: [address] [address] Triglycerides 150(H) <=149 mg/dL MARCELINO Comment: Interpretive [...] last revised on 2018. Testing performed by: [address] [address] HDL 34(L) >=40 mg/dL MARCELINO Comment: Interpretive [...] last revised on 2018. Testing performed by: [address] [address] LDL, calculated 88 <=129 mg/dL MARCELINO Comment: [...] last revised on 2024. Testing performed by: [address] [address] Non-HDL Cholesterol 114 mg/dL MARCELINO Comment: Interpretive [...] last revised on 2018. Testing performed by: [address] [address] Chol/HDL ratio 4 MARCELINO Comment:Testing performed by : [address] [address] Blood 11/03/2024 2:21 AM BRAILLE TRANSLATOR 11/03/2024 2:57 AM BRAILLE TRANSLATOR Ananya MEANS LAB BLOOD ORDERABLES Final Re sult MARCELINO [address] [facility] Department of Laboratories [place], [place] [id number] * (ABNORMAL) Hemoglobin A1c (09/28/2024 12:13 PM BRAILLE TRANSLATOR) Hgb A1C 7.7(H) 4.0 - 5.6 % Estimated Average Glucose 174 mg/dL MARCELINO HAYWOOD Comment: The ADA recommends reporting an estimated Average Glucose (eAG) with all Hemoglobin A1c results using the equation derived from a study of 507 normal and diabetic adults. Minority populations were underrepresented and children were not included. (Diabetes Care 31:0090-4653, 2008). The eAG is not equivalent to a fasting glucose. Blood 09/28/2024 12:1 3 PM BRAILLE TRANSLATOR 09/28/2024 12:16 PM BRAILLE TRANSLATOR us Mackenzie Carey TRACK OILER LAB BLOOD ORDERABLES Final R esult Performing Organization Address [facility] Co de Phone Number [facility] [address] [facility] [place] [address] * (ABNORMAL) Albumin Creatinine Ratio, Urine (11/01/2023 9:30 AM BRAILLE TRANSLATOR) Albumin Ur 50.5 mg/L MARCELINO Comment: Interpretive Data No reference range established. Current interpretive data was last revised 2019. Testing performed by: [facility], [address] [place] [address]., [address] Creatinine Ur 101.6 mg/dL MARCELINO Comment: Interpretive Data No reference range established. Current interpretive data was last revised 2019. Testing performed by: [facility], [address] [place] [address]., [address] Albumin Creatinine Ratio, Ur 50(H) 1 - 29 mg/g MARCELINO Comment:Testing performed by : [facility], [address] [place] [address]., [address] Urine 11/01/2023 9:30 AM BRAILLE TRANSLATOR 11/01/2023 12:14 PM BRAILLE TRANSLATOR Donn Bonilla DO LAB URINE ORDERABLES Fin al Result Performing Organization Address [facility] Co de Phone Number [facility] [address] [facility] [place] [address] * Dexa Axial Skeleton Bone Density 1 or 2 Site (02/29/2020 9:31 AM CDT) Anatomical Region Laterality Modality Body N/A Radiographic Rosa Isela ging 03/01/2020 10:5 7 AM CDT Narrative 03/01/2020 11:00 AM CDT Patient Name: KAISER,SHARIRENUKA Hughes Dr: Donn Bonilla DO, D.O.B: 1940 Exam Date: 02/29/20930 Age: 79 Sex: Female MR#: [id number] Loc: RADIOLOGY REPORT Order #[id number] Bone Density Bone Density Hip/Spine (STD) Signed EXAM DESCRIPTION: Bone Density Hip/Spine (STD) REASON FOR STUDY: 79 year old female with given history of osteoarthritis. Log Deckman/Model: [employer] A ([id number]) CLINICAL INFORMATION: Current height: 65.5 inches Weight: [...] by Alonzo Canchola M.D. MD: Report ID: [id number] Reading Location: [place] [address] REPORT ELECTRONICALLY SIGNED IN OTHER VENDOR SYSTEM Resulting Agency Comment O Procedure Note Alonzo Canchola MD - 03/01/2020 Patient Name: Kathrine KAISERRENUKA Garber Dr: Donn BonillaOCarmenB: 1940 Exam Date: 02/29/20930 Age: 79 Sex: Female MR#: [id number] Loc: RADIOLOGY REPORT Order #[id number] Bone Density Bone Density Hip/Spine (STD) Signed EXAM DESCRIPTION: Bone Density Hip/Spine (STD) REASON FOR STUDY: 79 year old female with given history ofosteoarthritis. Log Deckman/Model: [employer] acquired by [employer] A ([id number]/N [id number]) CLINICAL INFORMATION: Current height: 65.5 inches Weight: [...] by Alonzo Canchola M.D. 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ANTRA 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
[2025-02-11 21:26] LABS: Add Urine Microscopic? YES; Appearance Urine Clear (Clear); Bacteria Urine None Seen /hpf; Bilirubin Urine Negative (Negative); Blood Urine 2+ (Negative); Color Urine Yellow (Yellow); Glucose Urine UA Negative (Negative); Ketones Urine Negative (Negative); Leukocyte Esterase Ur 3+ LEU/UL (Negative); Nitrate Urine Negative (Negative); Non Pathogenic Casts 0-2; Protein Urine Trace mg/dL (Negative); RBC Urine 21-50 /hpf (0-2); Specific Grav Ur 1.007 (1.001-1.035); Squamous Epithelial Cell Urine None Seen /hpf (Few); Urobilinogen Urine 0.2 mg/dL (<2.0); WBC Urine >100 /hpf (0-3)
[2025-02-11 21:43] VITALS: BP 174/72; PULSE 71; RESP 20; O2SAT 99
[2025-02-11 23:00] VITALS: BP 178/79; PULSE 76; RESP 20; O2SAT 99
[2025-02-12 00:39] LABS: Basophils Percent Auto 0.4 % (0.2-1.2); Eosinophils Absolute Auto 0.2 K/mm3 (0-0.3); Eosinophils Percent Auto 2.2 % (0-4.4); Hematocrit 36.7 % (37.0-47.0); Hemoglobin 11.1 g/dL (12.0-15.0); Immature Granulocyte Absolute 0.01 K/mm3 (0.00-0.031); Immature Granulocyte Percent A 0.1 % (0-0.5); Lymphocytes Absolute Auto 0.71 K/mm3 (0.9-3.2); Lymphocytes Percent Auto 9.9 % (18.3-44.2); Mean Corpuscular HGB Conc 30.2 g/dl (32-36); Mean Corpuscular Hemoglobin 27.3 pg (26-34); Mean Corpuscular Volume 90.4 fl (80-100); Mean Platelet Volume 9.4 fl (7.4-10.4); Monocytes Absolute Auto 0.5 K/mm3 (0.1-0.6); Monocytes Percent Auto 7.2 % (2.6-8.5); Neutrophils Absolute Auto 5.8 K/mm3 (1.3-6.7); Neutrophils Percent Auto 80.2 % (45.5-73.1); Platelet Count Result 250 k/mm3 (150-375); Red Blood Count 4.06 M/mm3 (4.2-5.4); Red Cell Distribution Width 16.2 % (11.5-14.5); White Blood Count 7.2 K/mm3 (4.5-10.0)
[2025-02-12 00:52] LABS: Alanine Aminotransferase 11 U/L (6-35); Albumin Level 3.2 g/dL (3.5-5.1); Alkaline Phosphatase 98 U/L (38-126); Anion Gap 3 mmol/L (4-12); Aspartate Amino Transferase 20 U/L (14-36); Bilirubin,Total 0.4 mg/dL (0.2-1.3); Blood Urea Nitrogen 11 mg/dL (7-17); Calcium 9.6 mg/dL (8.4-10.2); Carbon Dioxide 30 mmol/L (22-30); Chloride 101 mmol/L (98-107); Estimated CRCL calculation 45 ml/min; Estimated Glomerular Filt Rate > 60; Glucose 127 mg/dL (65-110); Lactic Acid Reflex 1.1 mmol/L (0.7-2.0); Potassium 3.6 mmol/L (3.4-5.0); Sodium 134 mmol/L (137-145); Total Protein 6.2 g/dL (6.3-8.2)
[2025-02-12] MEDS: AMOXICILLIN/CLAVULANATE K 875-125 MG TAB 1 TABLET PO (01:38)
[2025-02-12 01:40] VITALS: BP 155/79; PULSE 94; RESP 19; O2SAT 99
[2025-02-12 03:16] VITALS: PULSE 87; RESP 19; O2SAT 96
[2025-02-12 05:28] VITALS: BP 156/83; PULSE 76; RESP 21; O2SAT 96
== END 2025-02-12 08:26 ==
PROVIDERS: Emergency Provider Registered Nurse; PCP Family Medicine
DX: N39.0 Urinary tract infection, site not specified (principal); G30.9 Alzheimer's disease, unspecified; F02.80 Dementia in other diseases classified elsewhere, unspecified severity, without behavioral disturbance, psychotic disturbance, mood disturbance, and anxiety; I34.1 Nonrheumatic mitral (valve) prolapse; I10 Essential (primary) hypertension; E78.5 Hyperlipidemia, unspecified; E11.9 Type 2 diabetes mellitus without complications; K21.9 Gastro-esophageal reflux disease without esophagitis
CPT/HCPCS: 36415; 51702; 80053; 81001; 83605; 85025; 87086; 87186; 99283; A9270

== ENCOUNTER 2025-02-22 08:59 | Inpatient (IN) | payer MEDICARE, MEDICAID, SELFPAY ==
[2025-02-22] VITALS (37 sets, daily range): BP systolic 67–116; BP diastolic 42–86; PULSE 85–122; RESP 16–42; TEMP 36.7–40; O2SAT 90–99; BMI 24.2; BMI 25.7
--- NOTE | ~2025-02-22 | XR_ITS ---
XR chest 1V portable Ordering provider: Adams Velazquez MD History: 84 years Female with . INFECTION . Comparison: None. FINDINGS: MEDIASTINUM: The cardiac silhouette is slightly enlarged. Prominent both melani. LUNGS: No effusions or pneumothorax. Prominent bronchovascular markings with interstitial thickening is seen bilaterally. right perihilar opacification is noted. Minimal opacification the left lung base is also seen. OTHER: No free air under the diaphragm. Degenerative changes of the spine. IMPRESSION: Cardiomegaly with prominent melani and minimal interstitial thickening which may indicate cardiac decom pensation and early pulmonary edema. Superimposed pneumonitis is not excluded. Clinical correlation a nd follow-up advised. Reviewed, dictated and finalized at location A. IMPRESSION: Cardiomegaly with prominent melani and minimal interstitial thickening which may indicate cardiac decompensation and early pulmonary edema. Superimposed pneumon itis is not excluded. Clinical correlation and follow-up advised.
--- NOTE | 2025-02-22 09:02 | ECG_ITS ---
Test Date: 2025-02-22 09:34:25 Measurements Intervals [place] Rate: 119 P: 0 MS: 0 QRS: -13 QRSD: 92 T: 22 QT: 260 QTc: 366 Interpretive Statements SINUS TACHYCARDIA WITH ATRIAL TRIPLET AND FREQUENT ATRIAL PREMATURE COMPLEXES INCOMPLETE RIGHT BUNDLE BRANCH BLOCK DELAYED PRECORDIAL R/S TRANSITION LEFT VENTRICULAR HYPERTROPHY WITH ST-T CHANGE INFERIOR INFARCT, AGE INDETERMINATE BORDERLINE ST-T WAVE ABNORMALITY- ANTEROLATERAL LEADS BASELINE ARTIFACT- I, III, AVR, AVL, AVF, V1-V6 ABNORMAL ECG No previous ECG available for comparison Electronically Signed On 02-22-2025 09:51:18 CDT by Tu Carrillo D.O.
[2025-02-22 09:12] LABS: Hematocrit 35.7 % (37.0-47.0); Hemoglobin 11.2 g/dL (12.0-15.0); Mean Corpuscular HGB Conc 31.4 g/dl (32-36); Mean Corpuscular Hemoglobin 27.5 pg (26-34); Mean Corpuscular Volume 87.5 fl (80-100); Mean Platelet Volume 9.4 fl (7.4-10.4); Platelet Count Result 248 k/mm3 (150-375); Red Blood Count 4.08 M/mm3 (4.2-5.4); Red Cell Distribution Width 16.4 % (11.5-14.5); White Blood Count 29.5 K/mm3 (4.5-10.0)
[2025-02-22 09:21] LABS: Alanine Aminotransferase 22 U/L (6-35); Alkaline Phosphatase 102 U/L (38-126); Anion Gap 11 mmol/L (4-12); Aspartate Amino Transferase 41 U/L (14-36); Bilirubin,Total 0.3 mg/dL (0.2-1.3); Blood Urea Nitrogen 30 mg/dL (7-17); Calcium 9.1 mg/dL (8.4-10.2); Carbon Dioxide 23 mmol/L (22-30); Chloride 101 mmol/L (98-107); Estimated CRCL calculation 20 ml/min; Estimated Glomerular Filt Rate 27; Glucose 197 mg/dL (65-110); Potassium 3.5 mmol/L (3.4-5.0); Sodium 135 mmol/L (137-145); Total Protein 5.9 g/dL (6.3-8.2)
[2025-02-22 09:23] LABS: INR 1.2; Prothrombin Time 15.4 Seconds (11.1-14.7)
[2025-02-22 09:24] LABS: Band Neutrophils Percent 15 % (0-6); Lymphocytes Absolute Manual 0.29 K/mm3 (1.1-4.5); Neutrophils Percent Manual 84 % (46-73); Partial Thromboplastin Time 34.2 Seconds (22.3-36.8); Platelet Estimate Adequate (Adequate); Schistocytes None Seen; Total Cells Counted 100
[2025-02-22 09:25] LABS: Anisocytosis 1+
--- NOTE | 2025-02-22 09:43 | PC.NURSE ---
esparza from facility removed, new esparza placed. no urine output at this time
--- NOTE | 2025-02-22 09:53 | ED_ITS ---
HPI - General Adult General Chief complaint: Altered Mental Status Stated complaint: lethargic Time Seen by Provider: 02/22/25 09:53 History of Present Illness HPI narrative: 84 years old white female came from detention by ambulance with altered mental status. Patient baseline, awake alert oriented time 1, patient presents with tachypnea, unresponsive started within the last 48 hours patient was on hospice in the past, no longer qualify, reportedly had temperature of 103?, had 650 mg of Tylenol suppository prior to arrival. Patient is DNR Related Data Allergies Allergy/AdvReac Type Severity Reaction Status Date / Time atorvastatin Allergy Mild Unknown Verified 01/26/25 11:45 cephalexin Allergy Mild Unknown Verified 01/26/25 11:45 gentamicin Allergy Mild Unknown Verified 01/26/25 11:45 pregabalin Allergy Mild Unknown Verified 01/26/25 11:45 Sulfa (Sulfonamide Allergy Mild Unknown Verified 01/26/25 11:45 Antibiotics) Review of Systems 2 Review of Systems: All systems reviewed & are unremarkable except as noted in HPI and below PMFSH Past Medical History Medical History Mitral valve prolapse Gastroesophageal reflux disease without esophagitis Hyperlipidemia Diabetes Hypertension Alzheimer's dementia Exam 2 Narrative: General appearance: Well-developed, well-nourished, responsive to painful stimulation/withdrawing Skin: Normal color, hot to touch, diaphoretic Head: Normocephalic, nontraumatic Eyes: Clear conjunctiva ENT: Dry oral cavity Neck: Supple, nontender Chest and respiratory: Airway patent, scattered rhonchi and diminution of air entry bilaterally Heart: Tachycardia Abdomen: Soft, mild diffuse tenderness, no organomegaly, quiet bowel sounds Musculoskeletal: Unresponsive Neurologic: Disoriented x4 Course Vital Signs Vital signs: Vital Signs Temperature 40.0 C H 02/22/25 08:57 Pulse Rate 107 H 02/22/25 08:57 Respiratory Rate 42 H 02/22/25 08:57 Blood Pressure 102/63 02/22/25 08:57 Pulse Oximetry 92 02/22/25 08:57 Oxygen Delivery Room Air 02/22/25 08:57 Temperature 39.3 C H 02/22/25 10:01 Pulse Rate 104 H 02/22/25 10:01 Respiratory Rate 33 H 02/22/25 10:01 Blood Pressure 82/47 L 02/22/25 10:00 Pulse Oximetry 90 02/22/25 10:01 Oxygen Delivery Room Air 02/22/25 09:35 Medical Decision Making MDM Narrative Medical decision making narrative: Patient came with the above symptoms Vital signs showing blood pressure 82/47, heart rate 107, respiratory rate 42, temperature 40.0? Physical examination showing unresponsive patient, hyperventilating Differential diagnosis sepsis with hypotension, urinary tract infection, pneumonia, electrolyte imbalance, dehydration Patient's daughter who had the [id number] requested to change the code status to comfort measures only which means no blood workup, no imaging, just IV fluid, pain medication as needed. Admit to hospitalist, Diagnosis sepsis with hypotension, comfort measures only Differential Diagnosis Differential Diagnosis: As above Vital Signs Vital Signs: Vital Signs Temperature 40.0 C H 02/22/25 08:57 Pulse Rate 107 H 02/22/25 08:57 Respiratory Rate 42 H 02/22/25 08:57 Blood Pressure 102/63 02/22/25 08:57 Pulse Oximetry 92 02/22/25 08:57 Oxygen Delivery Room Air 02/22/25 08:57 Temperature 39.3 C H 02/22/25 10:01 Pulse Rate 104 H 02/22/25 10:01 Respiratory Rate 33 H 02/22/25 10:01 Blood Pressure 82/47 L 02/22/25 10:00 Pulse Oximetry 90 02/22/25 10:01 Oxygen Delivery Room Air 02/22/25 09:35 Lab Data 02/22/25 09:08 02/22/25 09:08 Labs: Lab Results 02/22/25 02/22/25 Range/Units 09:08 09:25 WBC 29.5 H (4.5-10.0) K/mm3 RBC 4.08 L (4.2-5.4) M/mm3 Hgb 11.2 L (12.0-15.0) g/dL Hct 35.7 L (37.0-47.0) % MCV 87.5 (80-100) fl MCH 27.5 (26-34) pg MCHC 31.4 L (32-36) g/dl RDW 16.4 H (11.5-14.5) % Plt Count 248 (150-375) k/mm3 MPV 9.4 (7.4-10.4) fl Immature Gran % (Auto) Not Reportable Neut % (Auto) Not Reportable Lymph % (Auto) Not Reportable Curry % (Auto) Not Reportable Eos % (Auto) Not Reportable Baso % (Auto) Not Reportable Lymph # (Auto) Not Reportable Curry # (Auto) Not Reportable Eos # (Auto) Not Reportable Baso # (Auto) Not Reportable Abs Immat Gran (auto) Not Reportable Absolute Neuts (auto) Not Reportable Absolute Nucleated RBC Not Reportable Total Counted 100 Neutrophils % (Manual) 84 H (46-73) % Band Neutrophils % 15 H (0-6) % Lymphocytes % (Manual) 1.0 L (18-44) % Nucleated RBC % Not Reportable Abs Neuts (Manual) 29.20 H (1.3-6.7) K/mm3 Abs Lymphs (Manual) 0.29 L (1.1-4.5) K/mm3 Platelet Estimate Adequate (Adequate) Anisocytosis 1+ Schistocytes None seen PT 15.4 H (11.1-14.7) Seconds INR 1.2 APTT 34.2 (22.3-36.8) Seconds Sodium 135 L (137-145) mmol/L Potassium 3.5 (3.4-5.0) mmol/L Chloride 101 (98-107) mmol/L Carbon Dioxide 23 (22-30) mmol/L Anion Gap 11 (4-12) mmol/L BUN 30 H D (7-17) mg/dL Creatinine 1.77 H (0.7-1.0) mg/dL Estim Creat Clear Calc 20 ml/min Estimated GFR 27 L (59 - ) Glucose 197 H (65-110) mg/dL Lactic Acid 3.0 H (0.7-2.0) mmol/L Calcium 9.1 (8.4-10.2) mg/dL Total Bilirubin 0.3 (0.2-1.3) mg/dL AST 41 H (14-36) U/L ALT 22 (6-35) U/L Alkaline Phosphatase 102 (38-126) U/L Total Protein 5.9 L (6.3-8.2) g/dL Albumin 3.0 L (3.5-5.1) g/dL Discharge Plan Discharge Clinical Impression: Sepsis associated hypotension, Comfort measures only status Patient Disposition: Still a Patient Condition: Critical Patient Language: Macedonian Prescriptions: No Action polyethylene glycol 3350 [Miralax] 17 gram/dose powder 17 g PO DAILY Qty: 119 0RF ciprofloxacin HCl 500 mg tablet 500 mg PO Q12H Qty: 14 0RF amoxicillin-pot clavulanate 875-125 mg tablet 1 tablet PO Q12H Qty: 14 0RF Follow-up/Referrals: hCad,Donn Carlson MD [Primary Care Provider] -
--- NOTE | 2025-02-22 10:08 | PC.NURSE ---
VM left for contacts, Miladys & Lurdes, listed in the chart.
--- NOTE | 2025-02-22 10:09 | PC.NURSE ---
Juan, listed as contact in patient NH paperwork contacted. Dr. Velazquez spoke with him. He is to try and reach his mom, Miladys, due to severity of patient's condition.
[2025-02-22] MEDS: SODIUM CHLORIDE 0.9% IV 1,000 ML 999 ML IV CONT ×2 (10:10)
--- NOTE | 2025-02-22 10:18 | PC.NURSE ---
Per Juan, patient is comfort measures only. Confirmed via telephone by this RN and Dr. Velazquez.
[2025-02-22 11:28] LABS: Reflex Lactic Acid Yes or No Add Lactic
--- NOTE | 2025-02-22 12:11 | P.HP_ITS ---
H&P: HPI History of Present Illness Date/Time: 02/22/25 12:11 Chief Complaint: Fever, lethargy Narrative: This is 84-year-old female patient past medical history mitral valve prolapse, anemia was used attention presented below using home is brought in the nursing homes complaint altered mental status, fever and lethargy. Her daughter Miladys Larkin is at the bedside and is patient's medical power collections attorney. Chem notes that for the past couple days she has been unresponsive, tip tachypneic and developed a fever with some intermittent vomiting. Patient had reportedly been on hospice with [facility] hospice however she ?graduated? from it has she had been on it too long. Patient was placed in hospice initially because she had repeat infections and wished to be DNR. In the emergency room today patient arrived with signs of septic shock with hypotension of 82/47, tachypnea 42, tachycardia 107 and temperature 40? C. laboratory workup showing wbc's of 29.5 with left shift, H&H of 11.2 and 35.7, platelets of 248 with sodium of 135, potassium 3.5, BUN of 30 and creatinine 1.77 patient's lactic acid was 3.0. A goals of care conversation was had with the power of collections attorney and ER physician at the bedside as patient is nonresponsive and the medical power of collections attorney wishes patient to go back on hospice, to be comfort measures only and no further workup or treatment with goal of improving overall health status to be continued. After speaking with her I concur this is likely the best course of action at this point in patient's daughter would like to reinitiate with [facility] hospice. She is being admitted in t he current setting to begin comfort measures as well as consult for hospice. Review of Systems Review of Systems: ROS unobtainable: Yes unobtainable due to medical condition and unobtainable due to mental status PMFSH Past Medical History Medical History (Updated 02/22/25 @ 12:17 by LOUISE Tran) End of life care Septic shock Mitral valve prolapse Gastroesophageal reflux disease without esophagitis Hyperlipidemia Diabetes Hypertension Alzheimer's dementia Meds Home Medications and Allergies Home Medications ?Medication ?Instructions ?Recorded ?Confirmed ?Type ciprofloxacin HCl 500 mg tablet 500 mg PO Q12H #14 tabs 01/26/25 Rx polyethylene glycol 3350 17 17 g PO DAILY #119 grams 01/26/25 Rx gram/dose oral powder (Miralax) amoxicillin 875 mg-potassium 1 tablet PO Q12H #14 tabs 02/12/25 Rx clavulanate 125 mg tablet Allergies Allergy/AdvReac Type Severity Reaction Status Date / Time atorvastatin Allergy Mild Unknown Verified 01/26/25 11:45 cephalexin Allergy Mild Unknown Verified 01/26/25 11:45 gentamicin Allergy Mild Unknown Verified 01/26/25 11:45 pregabalin Allergy Mild Unknown Verified 01/26/25 11:45 Sulfa (Sulfonamide Allergy Mild Unknown Verified 01/26/25 11:45 Antibiotics) Vital Signs Vital Signs - 24 hr 02/22/25 08:57 02/22/25 09:35 02/22/25 09:35 Temperature 104.0 F H 104.0 F H Pulse Rate 107 H 108 H Respiratory Rate 42 H 35 H Blood Pressure 102/63 96/55 L Pulse Oximetry 92 91 92 Oxygen Delivery Room Air Room Air 02/22/25 09:36 02/22/25 09:45 02/22/25 09:46 Temperature 101.2 F H 101.5 F H Pulse Rate 114 H 108 H 122 H Respiratory Rate 34 H 34 H 34 H Blood Pressure 67/45 L Pulse Oximetry 91 91 92 Oxygen Delivery 02/22/25 10:00 02/22/25 10:01 02/22/25 10:25 Temperature 102.7 F H 102.7 F H 101.2 F H Pulse Rate 101 H 104 H 90 Respiratory Rate 33 H 33 H 28 H Blood Pressure 82/47 L Pulse Oximetry 90 90 91 Oxygen Delivery 02/22/25 10:31 02/22/25 10:52 02/22/25 11:00 Temperature 101.0 F H 100.6 F H 100.4 F H Pulse Rate 95 90 95 Respiratory Rate 27 H 26 H 27 H Blood Pressure 111/42 L Pulse Oximetry 92 95 Oxygen Delivery 02/22/25 11:01 02/22/25 11:15 02/22/25 11:16 Temperature 100.4 F H 100.5 F H 100.5 F H Pulse Rate 87 104 H 89 Respiratory Rate 26 H 23 H 26 H Blood Pressure 91/52 L Pulse Oximetry 99 Oxygen Delivery 02/22/25 11:30 02/22/25 11:31 02/22/25 11:45 Temperature 100.4 F H 100.4 F H 100.4 F H Pulse Rate 86 85 90 Respiratory Rate 27 H 27 H 28 H Blood Pressure 99/50 L 108/62 Pulse Oximetry Oxygen Delivery 02/22/25 11:46 02/22/25 12:00 02/22/25 12:01 Temperature 100.3 F H 100.4 F H 100.4 F H Pulse Rate 91 91 88 Respiratory Rate 30 H 29 H 29 H Blood Pressure 105/63 Pulse Oximetry Oxygen Delivery Exam Const: General: no acute distress Other: Unresponsive, lying supine. HENMT: Face/Nose/Sinus: Normal nares present Mouth: Yes dry mucous membranes Eyes: General: appearance normal, both eyes and all related structures Neck: Lymphatic: lymphadenopathy not noted Resp: Effort & Inspection: abnormal respiratory effort Auscultation: diminished lung sounds (Throughout all gonzalez) Cardio: Rate: tachycardic Rhythm: regular rhythm Heart sounds: no gallops, no murmurs and no rubs GI: Inspection: non-distended GI Palp: Yes Soft to palpation and No Tenderness to palpation present (GI) Auscultation: normal bowel sounds Urinary Catheter: Urinary Catheter: patent and draining Skin: General skin exam: No normal color (Pale), no rashes or lesions noted and no erythema Lesions: no lesions noted Rashes: no rashes noted Wounds: no wounds Neuro: Other: Patient not responding to verbal stimulation. She will withdrawal from tactile stim. No of her knee to communicate. Extrem: General: normal to inspection, no edema and no pedal edema Psych: Other: No splinting H&P: Results Labs Labs: Short CBC 02/22/25 Range/Units 09:08 WBC 29.5 H (4.5-10.0) K/mm3 Hgb 11.2 L (12.0-15.0) g/dL Hct 35.7 L (37.0-47.0) % Plt Count 248 (150-375) k/mm3 BMP 02/22/25 09:08 Sodium 135 L Potassium 3.5 Chloride 101 Carbon Dioxide 23 BUN 30 H D Creatinine 1.77 H Glucose 197 H Calcium 9.1 Liver Function 02/22/25 Range/Units 09:08 Total Bilirubin 0.3 (0.2-1.3) mg/dL AST 41 H (14-36) U/L ALT 22 (6-35) U/L Alkaline Phosphatase 102 (38-126) U/L Albumin 3.0 L (3.5-5.1) g/dL Assessment and Plan Assessment and plan (1) Septic shock: Code(s): A41.9 - Sepsis, unspecified organism; R65.21 - Severe sepsis with septic shock Status: Acute Assessment and Plan: * As evidenced by hypotension, tachycardia, tachypnea, febrile status and left- shifted leukocytosis with lactic acidosis of 3.0 * Patient's family has opted for hospice consult. They would like to proceed with [facility] hospice. * Patient's family would not like any further workup performed with labs and/or imaging. They would like nature to take its course well we provide for comfort. * Etiology of sepsis unknown. (2) End of life care: Code(s): Z51.5 - Encounter for palliative care Status: Acute Assessment and Plan: * See 1. * I can say with certainty very of medical certainty that patient's expected life course is less than 6 months. * Medications of Roxanol, Ativan, scopolamine, atropine and Tylenol ordered. * Care coordination consult is placed. Quality If No VTE Prophylaxis Answer both mechanical and pharmacologic: Reason no mechanical VTE proph: low risk/not indicated (End of life care) Reason no pharmacologic proph: low risk/not indicated (End of life care) Hospitalist MIPS Advance Care Plan I have confirmed that the patient's Advanced Care Plan is present, code status is documented, or surrogate decision maker is listed in patient medical record.: Yes Medication Reconciliation I have utilized all available resources to obtain, update and review the patients current medications (includes all prescriptions, OTC, herbals, cannabis, and nutritional supplements).: Yes
[2025-02-22] MEDS: MORPHINE SULFATE ORAL CONC SOL (*CRX) 10 MG/0.5 ML SYRINGE 5 MG PO (14:19)
[2025-02-22] MEDS: LORazepam (*CRX) 2 MG/ML 30 ML ORAL CONCENTRATE 0.5 MG SUBLINGUAL (17:19)
--- NOTE | 2025-02-23 01:38 | PC.NURSE ---
On 02/23/25, the Graduate Nurse, Luci, provided care and completed [employer] documentation on this patient with this nurse at her side, available for questions/assistance. I have reviewed the Luci's documentation and agree with the findings.
[2025-02-23] MEDS: LORazepam (*CRX) 2 MG/ML 30 ML ORAL CONCENTRATE 0.5 MG SUBLINGUAL (04:44)
[2025-02-23 04:49] VITALS: BP 117/52; PULSE 92; RESP 16; TEMP 37; O2SAT 99
[2025-02-23 04:56] VITALS: O2SAT 93
[2025-02-23] MEDS: MORPHINE SULFATE ORAL CONC SOL (*CRX) 10 MG/0.5 ML SYRINGE 5 MG PO (06:06)
--- NOTE | 2025-02-23 07:40 | P.PNIM_ITS ---
Progress Note: A&P Assessment and Plan (1) Septic shock: Code(s): A41.9 - Sepsis, unspecified organism; R65.21 - Severe sepsis with septic shock Status: Acute Assessment and Plan: Meets SIRS criteria: hypotension, tachycardia, tachypnea, febrile status and left-shifted leukocytosis with lactic acidosis of 3.0 - sepsis etiology unknown - patient's family has opted for hospice consult. No further workup to be performed. Plan to go hospice with [facility], care coordination following (2) End of life care: Code(s): Z51.5 - Encounter for palliative care Status: Acute Assessment and Plan: - Family wishes patient to be made comfort care - Medications of morphine IVl, Ativan, scopolamine, and Tylenol ordered. - Care coordination consult is placed. Family wishes to proceed with hospice. Time Spent With Patient Time with patient: 25 - 35 minutes Subjective Date/time seen: 02/23/25 07:40 Interval history: 84 year old female with past medical history of HTN, HLD, GERD, DM, mitral valve prolapse, and alzheimers presents to the hospital for altered mental status. Patient is lying in bed and remains unresponsive to verbal stimuli but withdraws to tactile stimuli. Had an in depth conversation with patients daughter/cesar preston. She states that they do wish to remain comfort care and plan to discuss hospice with [facility]. Care coordination is following. Review of Systems Review of Systems: ROS unobtainable: Yes unobtainable due to mental status Exam Narrative: AF HR 92 RR 16 SpO2 99 BP 117/52 General: female in no acute respiratory distress who is nontoxic appearing, lying semi recumbent in bed. Chest: Lungs are diminished to auscultation bilaterally. No wheezes or crackles. CV: Heart was regular rate and rhythm. Abd: Abdomen was soft. Nondistended. Positive bowel sounds. Neuro: Patient is not responding to verbal stimulation. Withdraws to pain. Objective Data Vital Signs Vital Signs: Vital Signs - 24 hr 02/22/25 08:57 02/22/25 09:35 02/22/25 09:35 Temperature 104.0 F H 104.0 F H Pulse Rate 107 H 108 H Respiratory Rate 42 H 35 H Blood Pressure 102/63 96/55 L Pulse Oximetry 92 91 92 Oxygen Delivery Room Air Room Air 02/22/25 09:36 02/22/25 09:45 02/22/25 09:46 Temperature 101.2 F H 101.5 F H Pulse Rate 114 H 108 H 122 H Respiratory Rate 34 H 34 H 34 H Blood Pressure 67/45 L Pulse Oximetry 91 91 92 Oxygen Delivery 02/22/25 10:00 02/22/25 10:01 02/22/25 10:25 Temperature 102.7 F H 102.7 F H 101.2 F H Pulse Rate 101 H 104 H 90 Respiratory Rate 33 H 33 H 28 H Blood Pressure 82/47 L Pulse Oximetry 90 90 91 Oxygen Delivery 02/22/25 10:31 02/22/25 10:52 02/22/25 11:00 Temperature 101.0 F H 100.6 F H 100.4 F H Pulse Rate 95 90 95 Respiratory Rate 27 H 26 H 27 H Blood Pressure 111/42 L Pulse Oximetry 92 95 Oxygen Delivery 02/22/25 11:01 02/22/25 11:15 02/22/25 11:16 Temperature 100.4 F H 100.5 F H 100.5 F H Pulse Rate 87 104 H 89 Respiratory Rate 26 H 23 H 26 H Blood Pressure 91/52 L Pulse Oximetry 99 Oxygen Delivery 02/22/25 11:30 02/22/25 11:31 02/22/25 11:45 Temperature 100.4 F H 100.4 F H 100.4 F H Pulse Rate 86 85 90 Respiratory Rate 27 H 27 H 28 H Blood Pressure 99/50 L 108/62 Pulse Oximetry Oxygen Delivery 02/22/25 11:46 02/22/25 12:00 02/22/25 12:01 Temperature 100.3 F H 100.4 F H 100.4 F H Pulse Rate 91 91 88 Respiratory Rate 30 H 29 H 29 H Blood Pressure 105/63 Pulse Oximetry Oxygen Delivery 02/22/25 12:15 02/22/25 12:16 02/22/25 12:30 Temperature 100.4 F H 100.4 F H 100.5 F H Pulse Rate 90 91 91 Respiratory Rate 26 H 29 H 29 H Blood Pressure 110/62 113/57 L Pulse Oximetry Oxygen Delivery 02/22/25 12:31 02/22/25 12:45 02/22/25 12:46 Temperature 100.5 F H 100.6 F H 100.6 F H Pulse Rate 90 86 86 Respiratory Rate 29 H 28 H 27 H Blood Pressure 112/56 L Pulse Oximetry Oxygen Delivery 02/22/25 13:00 02/22/25 13:01 02/22/25 13:15 Temperature 100.6 F H 100.6 F H 100.7 F H Pulse Rate 91 92 91 Respiratory Rate 29 H 29 H 31 H Blood Pressure 116/60 116/63 Pulse Oximetry Oxygen Delivery 02/22/25 13:17 02/22/25 13:30 02/22/25 13:31 Temperature 100.7 F H 100.7 F H 100.7 F H Pulse Rate 92 95 94 Respiratory Rate 28 H 28 H 29 H Blood Pressure 103/86 Pulse Oximetry Oxygen Delivery 02/22/25 13:45 02/22/25 13:46 02/22/25 16:22 Temperature 100.7 F H 100.7 F H Pulse Rate 91 91 Respiratory Rate 30 H 31 H Blood Pressure 112/64 Pulse Oximetry 96 Oxygen Delivery Room Air 02/22/25 16:50 02/22/25 20:18 02/22/25 21:45 Temperature 98.0 F 99.6 F Pulse Rate 89 90 Respiratory Rate 20 16 Blood Pressure 115/57 L 111/45 L Pulse Oximetry 99 91 Oxygen Delivery Room Air 02/23/25 04:49 02/23/25 04:56 Temperature 98.6 F Pulse Rate 92 Respiratory Rate 16 Blood Pressure 117/52 L Pulse Oximetry 99 93 Oxygen Delivery Room Air Intake/Output Intake/Output: Intake & Output 02/20/25 02/21/25 02/22/25 02/23/25 23:59 23:59 23:59 23:59 Intake Total 2000 Output Total 50 200 Balance 1950 -200 Meds/Results Medications: Active Medications Generic Name Dose Route Start Last Admin Trade Name Freq PRN Reason Stop Dose Admin Acetaminophen 650 mg 02/22/25 11:54 Acetaminophen 650 Mg Suppository RECTAL Q6H PRN Mild Pain (1-3) or Fever Atropine Sulfate 1 drop 02/22/25 12:20 Atropine Sulfate 1% Ophth Soln 5 Ml Bottle SUBLINGUAL Q4H PRN Secretions Bisacodyl 10 mg 02/22/25 22:12 Bisacodyl 10 Mg Suppository RECTAL DAILY PRN constipation Hyoscyamine 0.125 mg 02/22/25 22:18 Hyoscyamine Sulfate 0.125 Mg Tablet PO Q4H PRN terminal secretions Sodium Chloride 1,000 mls @ 125 mls/hr 02/22/25 11:55 Normal Saline Iv IV CONT .Q8H [facility] Lorazepam 0.5 mg 02/22/25 12:21 02/23/25 04:44 Lorazepam (*Crx) 2 Mg/Ml 30 Ml Oral Concentrate SUBLINGUAL 0.5 mg Q6H PRN Administration Anxiety Morphine Sulfate 5 mg 02/22/25 12:19 02/23/25 06:06 Morphine Sulfate Oral Conc Crystal (*Crx) 10 Mg/0.5 Ml Syringe PO 5 mg Q4H PRN Administration Pain Rated 7-10 Ondansetron HCl 4 mg 02/22/25 12:19 Ondansetron Inj 4 Mg/2 Ml Vial IV PUSH Q6HR PRN Nausea And Vomiting Scopolamine 1 patch 02/25/25 09:00 Scopolamine 1 Mg Patch TRANSDERM Q72HR [facility] Labs Labs: Laboratory Results - last 24 hr 02/22/25 02/22/25 09:08 09:25 WBC 29.5 H RBC 4.08 L Hgb 11.2 L Hct 35.7 L MCV 87.5 MCH 27.5 MCHC 31.4 L RDW 16.4 H Plt Count 248 MPV 9.4 Immature Gran % (Auto) Not Reportable Neut % (Auto) Not Reportable Lymph % (Auto) Not Reportable [place] % (Auto) Not Reportable Eos % (Auto) Not Reportable Baso % (Auto) Not Reportable Lymph # (Auto) Not Reportable [place] # (Auto) Not Reportable Eos # (Auto) Not Reportable Baso # (Auto) Not Reportable Abs Immat Gran (auto) Not Reportable Absolute Neuts (auto) Not Reportable Absolute Nucleated RBC Not Reportable Total Counted 100 Neutrophils % (Manual) 84 H Band Neutrophils % 15 H Lymphocytes % (Manual) 1.0 L Nucleated RBC % Not Reportable Abs Neuts (Manual) 29.20 H Abs Lymphs (Manual) 0.29 L Platelet Estimate Adequate Anisocytosis 1+ Schistocytes None seen PT 15.4 H INR 1.2 APTT 34.2 Sodium 135 L Potassium 3.5 Chloride 101 Carbon Dioxide 23 Anion Gap 11 BUN 30 H D Creatinine 1.77 H Estim Creat Clear Calc 20 Estimated GFR 27 L Glucose 197 H Lactic Acid 3.0 H Calcium 9.1 Total Bilirubin 0.3 AST 41 H ALT 22 Alkaline Phosphatase 102 Total Protein 5.9 L Albumin 3.0 L
--- NOTE | 2025-02-23 13:27 | PCDIET ---
Nutrition note: Consult received for MST 3. Per notes pt will be going on hospice with no interventions. No nutrition interventions. Follow up by consult.
[2025-02-23 14:00] VITALS: BP 96/55; PULSE 109; RESP 22; TEMP 39.5; O2SAT 90
--- NOTE | 2025-03-08 15:06 | PM.DS ---
DS: Admitting Diagnosis Discharge Date 02/23/25 Admitting Diagnosis septic shock end of life care DS: Discharge Diagnosis Discharge Diagnosis (1) Septic shock: Code(s): A41.9 - Sepsis, unspecified organism; R65.21 - Severe sepsis with septic shock Status: Acute (2) End of life care: Code(s): Z51.5 - Encounter for palliative care Status: Acute DS: Summary Hospital Course Reason for hospitalization: septic shock end of life care Hospital Course: 84 year old female with past medical history of HTN, HLD, GERD, DM, mitral valve prolapse, and alzheimers presents to the hospital for altered mental status, fever and lethargy from the intermediate. Meets SIRS criteria: hypotension, tachycardia, tachypnea, febrile status and left-shifted leukocytosis with lactic acidosis of 3.0. Patient was nonresponsive only withdrawing to pain. Chest XR showed cardiomegaly with prominent melani and minimal interstitial thickening which may indicate cardiac decompensation and early pulmonary edema with possible superimposed pneumonitis. Etiology of sepsis unknown. Prior to further workup being completed patients POA/daughter Miladys chose to place patient back on hospice. The patient was placed on comfort measures at that time and no further workup was pursued. Patient discharged in a terminal condition on hospice. Status at Discharge Functional status at discharge: bed bound Time Spent with Patient Time attestation: Total time spent providing and/or coordinating discharge services: Time spent: Greater than 30 minutes Exam Narrative: AF HR 92 RR 16 SpO2 99 BP 117/52 General: female in no acute respiratory distress who is nontoxic appearing, lying semi recumbent in bed. Chest: Lungs are diminished to auscultation bilaterally. No wheezes or crackles. CV: Heart was regular rate and rhythm. Abd: Abdomen was soft. Nondistended. Positive bowel sounds. Neuro: Patient is not responding to verbal stimulation. Withdraws to pain. DS: Data Data Completed and Pending Completed studies during hospitalization: chest xr Discharge Plan Discharge Consulting providers: Tu Carrillo; Elayne Franklin; Nic Vidal Discharging Clinician: Nesha Chow Anticipated Discharge Date/Time: 02/23/25 15:09 Patient Disposition: Hospice [facility] Inpatient Patient Language: Welsh Date of admission: 02/22/25 13:27 Primary Care Provider: Chad,Donn Carlson Admitting Provider: Rachel Hui Attending physician on admission: Nesha Chow Condition: Terminal Hospitalist MIPS Heart Failure (Exclusion) Patient has history of Heart Transplant or Left Ventricular Assistive Device?: No IF YES, STOP HERE Heart Failure (Qualifier) Patient has current or prior documentation of LVEF less than or equal to 40%, or mod/servere depressed LVSF?: No IF NO, STOP HERE
== END 2025-02-23 16:01 | disposition hospice, inpatient (51) | DRG 871 ==
LOC: ANHED 11:30 → ANH3MEDSUR 12:39
PROVIDERS: Admitting Provider Internal Medicine; Emergency Provider Emergency Medicine; PCP Family Medicine; Visit Provider Student in an Organized Health Care Education/Training Program
DX: A41.9 Sepsis, unspecified organism (principal); R65.21 Severe sepsis with septic shock; I10 Essential (primary) hypertension; I34.1 Nonrheumatic mitral (valve) prolapse; K21.9 Gastro-esophageal reflux disease without esophagitis; E78.5 Hyperlipidemia, unspecified; E11.9 Type 2 diabetes mellitus without complications; G30.9 Alzheimer's disease, unspecified; F02.80 Dementia in other diseases classified elsewhere, unspecified severity, without behavioral disturbance, psychotic disturbance, mood disturbance, and anxiety; Z51.5 Encounter for palliative care
CPT/HCPCS: 36415; 71045; 80053; 83605; 85025; 85610; 85730; 93005; 96361; 96365; 96367; 99285; A9270; G0378; J7030

== ENCOUNTER 2025-02-23 16:04 | HOS | payer OTHER, MEDICARE, MEDICAID, SELFPAY ==
--- NOTE | 2025-02-23 16:48 | P.HP_ITS ---
H&P: HPI History of Present Illness Date/Time: 02/23/25 16:48 Chief Complaint: Uncontrolled dyspnea Narrative: 84 old female with history of dementia diabetes hypertension mitral valve prolapse has had multiple admissions since August 2024 for infections. She was on [facility] but discharged for extended prognosis at the end of December 2024. She was admitted [facility] January 22 due to altered mental status and fever. She was found to have septic shock with white count 21703 tachycardia tachypnea and renal failure with creatinine 1.77. Chest x-ray showed evidence for pulmonary edema with possible superimposed pneumonia and UA showed pyuria. Her power of tax associate attorney, her daughter, wished for comfort care only and for readmission to hospice. Review of Systems Review of Systems: ROS unobtainable: Yes unobtainable due to medical condition PMFSH Past Medical History Medical History End of life care Septic shock Mitral valve prolapse Gastroesophageal reflux disease without esophagitis Hyperlipidemia Diabetes Hypertension Alzheimer's dementia Family History Family History (Updated 02/23/25 @ 16:51 by Gunnar Bonilla MD) Father No problems noted. Mother No problems noted. Social History Social History (Updated 02/23/25 @ 16:51 by Gunnar Bonilla MD) Social History: Code Status: DNR Smoking status: Never smoker Second hand tobacco smoke exposure: No Alcohol intake: never Substance use: never Substance use type: does not use Do You Feel Safe in your Home?: Yes Lack of Transportation: No Lack of Food: Never True Current Housing: I Do Not Have Housing Concerned About Future Housing: No Difficulty Paying Gas/Electric Bills: No Difficulty Paying for Meds: No Currently Unemployed: No Education: Decline to Answer Difficulty w/ Childcare or Family Care: No Spiritual care concerns: No Meds Home Medications and Allergies Home Medications ?Medication ?Instructions ?Recorded ?Confirmed ?Type polyethylene glycol 3350 17 17 g PO DAILY #119 grams 01/26/25 02/22/25 Rx gram/dose oral powder (Miralax) acetaminophen 325 mg tablet (Pain 650 mg PO Q6H PRN pain 02/22/25 02/22/25 History Relief (acetaminophen)) bisacodyl 10 mg rectal suppository 10 mg RECTAL DAILY PRN constipation 02/22/25 02/22/25 History (Dulcolax (bisacodyl)) diazepam 2 mg tablet 2 mg PO .Q12HR PRN anxiety 02/22/25 02/22/25 History fluoxetine 10 mg capsule 10 mg PO DAILY 02/22/25 02/22/25 History gabapentin 100 mg capsule 100 mg PO TID 02/22/25 02/22/25 History hyoscyamine 0.15 mg tablet 0.125 mg PO Q4H PRN terminal 02/22/25 02/22/25 History secretions ipratropium 0.5 mg-albuterol 3 mg 3 ml inhalation Q6H PRN shortness 02/22/25 02/22/25 History (2.5 mg base)/3 mL nebulization of breath soln magnesium citrate (Citrate of 296 ml PO DAILY PRN constipation 02/22/25 02/22/25 History Magnesia oral) magnesium hydroxide 400 mg/5 mL 30 ml PO HS PRN constipation 02/22/25 02/22/25 History oral suspension (Dulcolax (magnesium hydroxide)) morphine 15 mg immediate release 15 mg PO TID 02/22/25 02/22/25 History tablet ondansetron HCl 8 mg tablet 8 mg PO Q8H PRN nausea and vomiting 02/22/25 02/22/25 History trazodone 50 mg tablet 25 mg PO HS 02/22/25 02/22/25 History zinc oxide 10 % topical ointment 1 applic topical BID 02/22/25 02/22/25 History (Dr. Dougherty's Diaper) Allergies Allergy/AdvReac Type Severity Reaction Status Date / Time atorvastatin Allergy Mild Unknown Verified 01/26/25 11:45 cephalexin Allergy Mild Unknown Verified 01/26/25 11:45 gentamicin Allergy Mild Unknown Verified 01/26/25 11:45 pregabalin Allergy Mild Unknown Verified 01/26/25 11:45 Sulfa (Sulfonamide Allergy Mild Unknown Verified 01/26/25 11:45 Antibiotics) Exam Narrative: HEENT: Pharyngeal mucosa pink and dry NECK: No JVD CHEST: Tachypneic with coarse breath sounds HEART: NL S1/S2, regular, tachycardic, no murmur ABDOMEN: BS hypoactive, soft, nontender, no mass, no bruits EXTREMITIES: No cyanosis, edema, or clubbing NEUROLOGIC: CN symmetric to inspection MUSCULOSKELETAL: Without gross deformity to visual inspection PSYCH: Unresponsive to verbal and tactile stimuli Assessment and Plan Assessment and plan (1) Hospice care: Code(s): Z51.5 - Encounter for palliative care Status: Acute Assessment and Plan: * Meet inpatient hospice criteria due to requiring continuous IV hydromorphone at 0.25 milligrams/hour for control of dyspnea * P.r.n. palliative regimen ordered * 02/23/2025: Discussed care and prognosis with daughter and granddaughter at bedside (2) Septic shock: Code(s): A41.9 - Sepsis, unspecified organism; R65.21 - Severe sepsis with septic shock Status: Acute
[2025-02-23] MEDS: HYDROmorphone HCL/PF (*CRX) 50 MG in SODIUM CHLORIDE 0.9% IV 95 ML IV CONT (17:54)
[2025-02-23] MEDS: HYDROmorphone HCL INJ (*CRX) 2 MG/ML VIAL 0.5 MG IV PUSH (18:15)
[2025-02-23 20:00] VITALS: PULSE 78; RESP 18; O2SAT 92
[2025-02-23 21:51] VITALS: BP 87/51; PULSE 78; RESP 18; TEMP 35.8; O2SAT 92
[2025-02-24] MEDS: HYDROmorphone HCL INJ (*CRX) 2 MG/ML VIAL 0.5 MG IV PUSH ×3 (01:27→10:38)
[2025-02-24] MEDS: diazePAM INJ (*CRX) 10 MG/2 ML SYRINGE 5 MG IV PUSH ×4 (01:28→21:43)
[2025-02-24] MEDS: GLYCOPYRROLATE INJ (*SP) 0.2 MG/ML VIAL 0.1 MG IV PUSH (06:09)
--- NOTE | 2025-02-24 06:56 | P.DS_ITS ---
DS: Admitting Diagnosis Discharge Date 02/24/2025 Admitting Diagnosis septic shock end of life care DS: Discharge Diagnosis Discharge Diagnosis (1) Septic shock: Code(s): A41.9 - Sepsis, unspecified organism; R65.21 - Severe sepsis with septic shock Status: Acute (2) End of life care: Code(s): Z51.5 - Encounter for palliative care Status: Acute DS: Summary Hospital Course Reason for hospitalization: septic shock end of life care Hospital Course: 84 year old female with past medical history of HTN, HLD, GERD, DM, mitral valve prolapse, and alzheimers presents to the hospital for altered mental status, fever and lethargy from the [facility]. Meets SIRS criteria: hypotension, tachycardia, tachypnea, febrile status and left-shifted leukocytosis with lactic acidosis of 3.0. Patient was nonresponsive only withdrawing to pain. Chest XR showed cardiomegaly with prominent melani and minimal interstitial thickening which may indicate cardiac decompensation and early pulmonary edema with possible superimposed pneumonitis. Etiology of sepsis unknown. Prior to further workup being completed patients POA/daughter Miladys chose to place patient back on hospice. The patient was placed on comfort measures at that time and no further workup was pursued. Patient discharged to [facility] in the hospital. Status at Discharge Functional status at discharge: bed bound Time Spent with Patient Time attestation: Total time spent providing and/or coordinating discharge services: Time spent: Greater than 30 minutes Exam Narrative: AF HR 92 RR 16 SpO2 99 BP 117/52 General: female in no acute respiratory distress who is nontoxic appearing, lying semi recumbent in bed. Chest: Lungs are diminished to auscultation bilaterally. No wheezes or crackles. CV: Heart was regular rate and rhythm. Abd: Abdomen was soft. Nondistended. Positive bowel sounds. Neuro: Patient is not responding to verbal stimulation. Withdraws to pain. DS: Data Data Completed and Pending Completed studies during hospitalization: chest xr Discharge Plan Discharge Attending physician on discharge: Rachel Hui Discharging Clinician: Nesha Chow Anticipated Discharge Date/Time: 02/24/25 16:00 Patient Disposition: Hospice - Medical Facility Activity: as tolerated Diet: as tolerated Discharge Instructions: Patient discharged to hospice. Hospice to take over care. Patient Language: Thai Stand Alone Forms: General Discharge Information Discharge Medications: No Action No Home Medications Date of admission: 02/23/25 16:04 Primary Care Provider: ChadDonn Admitting Provider: Gunnar Bonilla Attending physician on admission: Gunnar Bonilla Hospitalist MIPS Heart Failure (Exclusion) Patient has history of Heart Transplant or Left Ventricular Assistive Device?: No IF YES, STOP HERE Heart Failure (Qualifier) Patient has current or prior documentation of LVEF less than or equal to 40%, or mod/servere depressed LVSF?: No IF NO, STOP HERE
[2025-02-24 08:00] VITALS: BP 79/53; PULSE 80; RESP 15; TEMP 35.8; O2SAT 90
[2025-02-24] MEDS: HYDROmorphone HCL/PF (*CRX) 50 MG in SODIUM CHLORIDE 0.9% IV 95 ML IV CONT (16:17)
[2025-02-24 20:00] VITALS: BP 88/55; PULSE 58; RESP 18; TEMP 36.2; O2SAT 94
--- NOTE | 2025-02-24 21:49 | P.PNIM_ITS ---
Progress Note: A&P Assessment and Plan (1) Hospice care: Code(s): Z51.5 - Encounter for palliative care Status: Acute Assessment and Plan: * Meet inpatient hospice criteria due to requiring continuous IV hydromorphone at 0.25 milligrams/hour for control of dyspnea * P.r.n. palliative regimen ordered * 02/23/2025: Discussed care and prognosis with daughter and granddaughter at bedside * 02/24/2025: Restless and uncomfortable earlier, better after prn meds and increase in hydromorphone to 0.5 mg/hr and scheduled diazepam 5 mg q 8 hr, d/w daughter at bedside (2) Septic shock: Code(s): A41.9 - Sepsis, unspecified organism; R65.21 - Severe sepsis with septic shock Status: Acute Subjective Date/time seen: 02/24/25 21:49 Interval history: Comfortable since hydromorphone increased and diazepam scheduled earlier today. Review of Systems Review of Systems: ROS unobtainable: Yes unobtainable due to medical condition Exam Narrative: HEENT: Pharyngeal mucosa pink and dry NECK: No JVD CHEST: Tachypneic with coarse breath sounds HEART: NL S1/S2, regular, tachycardic, no murmur ABDOMEN: BS hypoactive, soft, nontender, no mass, no bruits EXTREMITIES: No cyanosis, edema, or clubbing NEUROLOGIC: CN symmetric to inspection MUSCULOSKELETAL: Without gross deformity to visual inspection PSYCH: Unresponsive to verbal and tactile stimuli Objective Data Vital Signs Vital Signs: Vital Signs - 24 hr 02/23/25 21:51 02/24/25 08:00 02/24/25 08:48 Temperature 96.5 F L 96.5 F L Pulse Rate 78 80 Respiratory Rate 18 15 Blood Pressure 87/51 L 79/53 L Pulse Oximetry 92 90 Oxygen Delivery Room Air Intake/Output Intake/Output: Intake & Output 02/21/25 02/22/25 02/23/25 02/24/25 23:59 23:59 23:59 23:59 Intake Total 0.2 11 Balance 0.2 11 Meds/Results Medications: Active Medications Generic Name Dose Route Start Last Admin Trade Name Freq PRN Reason Stop Dose Admin Acetaminophen 650 mg 02/23/25 16:43 Acetaminophen 650 Mg Suppository RECTAL Q6H PRN Fever Artificial Tears 1 drop 02/23/25 16:30 Artificial Tears Ophth Soln 15 Ml Bottle EACH EYE Q12H PRN Dry Eye(s) Bisacodyl 10 mg 02/23/25 16:30 Bisacodyl 10 Mg Suppository RECTAL DAILY PRN Constipation Diazepam 5 mg 02/23/25 16:29 02/24/25 10:38 Diazepam Inj (*Crx) 10 Mg/2 Ml Syringe IV PUSH 5 mg Q6H PRN Administration RESTLESSNESS Diazepam 5 mg 02/24/25 13:00 02/24/25 21:43 Diazepam Inj (*Crx) 10 Mg/2 Ml Syringe IV PUSH 5 mg Q8HR ALFRED Administration Glycopyrrolate 0.1 mg 02/23/25 16:30 02/24/25 06:09 Glycopyrrolate Inj (*Sp) 0.2 Mg/Ml Vial IV PUSH 0.1 mg Q4H PRN Administration secretions Hydromorphone HCl 0.5 mg 02/23/25 16:31 02/24/25 10:38 Hydromorphone Hcl Inj (*Crx) 2 Mg/Ml Vial IV PUSH 0.5 mg Q2H PRN Administration PAIN/DYSPNEA Hydromorphone HCl 50 mg/ 100 mls @ 1 mls/hr 02/23/25 16:30 02/24/25 16:17 Sodium Chloride IV CONT 0.25 mg/hr .Q24H ALFRED 0.5 mls/hr Administration 0.5 MG/HR Prochlorperazine Edisylate 10 mg 02/23/25 16:30 Prochlorperazine Edisylate 10 Mg/2 Ml Vial IV PUSH Q6H PRN Nausea And Vomiting
[2025-02-25] MEDS: diazePAM INJ (*CRX) 10 MG/2 ML SYRINGE 5 MG IV PUSH ×3 (05:57→21:43)
[2025-02-25 08:00] VITALS: BP 93/55; PULSE 75; RESP 10; TEMP 36.4; O2SAT 86
--- NOTE | 2025-02-25 12:04 | P.PNIM_ITS ---
Progress Note: A&P Assessment and Plan (1) Hospice care: Code(s): Z51.5 - Encounter for palliative care Status: Acute Assessment and Plan: * Meet inpatient hospice criteria due to requiring continuous IV hydromorphone at 0.25 milligrams/hour for control of dyspnea * P.r.n. palliative regimen ordered * 02/23/2025: Discussed care and prognosis with daughter and granddaughter at bedside * 02/24/2025: Restless and uncomfortable earlier, better after prn meds and increased in hydromorphone to 0.5 mg/hr and scheduled diazepam 5 mg q 8 hr, d/w daughter at bedside * 02/25/2025: Now hypothermic, hypotensive, unresponsive, too unstable to transfer, d/w daughter and grandson at bedside (2) Septic shock: Code(s): A41.9 - Sepsis, unspecified organism; R65.21 - Severe sepsis with septic shock Status: Acute Subjective Date/time seen: 02/25/25 12:04 Interval history: Comfortable overnight. Continues on hydromorphone 0.5 mg/hr. Review of Systems Review of Systems: ROS unobtainable: Yes unobtainable due to medical condition Exam Narrative: HEENT: Pharyngeal mucosa pink and dry NECK: No JVD CHEST: Tachypneic with coarse breath sounds HEART: NL S1/S2, regular, tachycardic, no murmur ABDOMEN: BS hypoactive, soft, nontender, no mass, no bruits EXTREMITIES: No cyanosis, edema, or clubbing NEUROLOGIC: CN symmetric to inspection MUSCULOSKELETAL: Without gross deformity to visual inspection PSYCH: Unresponsive to verbal and tactile stimuli Objective Data Vital Signs Vital Signs: Vital Signs - 24 hr 02/24/25 20:00 Temperature 97.2 F L Pulse Rate 58 L Respiratory Rate 18 Blood Pressure 88/55 L Pulse Oximetry 94 Intake/Output Intake/Output: Intake & Output 02/22/25 02/23/25 02/24/25 02/25/25 23:59 23:59 23:59 23:59 Intake Total 0.2 11 7.4 Balance 0.2 11 7.4 Meds/Results Medications: Active Medications Generic Name Dose Route Start Last Admin Trade Name Freq PRN Reason Stop Dose Admin Acetaminophen 650 mg 02/23/25 16:43 Acetaminophen 650 Mg Suppository RECTAL Q6H PRN Fever Artificial Tears 1 drop 02/23/25 16:30 Artificial Tears Ophth Soln 15 Ml Bottle EACH EYE Q12H PRN Dry Eye(s) Bisacodyl 10 mg 02/23/25 16:30 Bisacodyl 10 Mg Suppository RECTAL DAILY PRN Constipation Diazepam 5 mg 02/23/25 16:29 02/24/25 10:38 Diazepam Inj (*Crx) 10 Mg/2 Ml Syringe IV PUSH 5 mg Q6H PRN Administration RESTLESSNESS Diazepam 5 mg 02/24/25 13:00 02/25/25 05:57 Diazepam Inj (*Crx) 10 Mg/2 Ml Syringe IV PUSH 5 mg Q8HR ALFRED Administration Glycopyrrolate 0.1 mg 02/23/25 16:30 02/24/25 06:09 Glycopyrrolate Inj (*Sp) 0.2 Mg/Ml Vial IV PUSH 0.1 mg Q4H PRN Administration secretions Hydromorphone HCl 0.5 mg 02/23/25 16:31 02/24/25 10:38 Hydromorphone Hcl Inj (*Crx) 2 Mg/Ml Vial IV PUSH 0.5 mg Q2H PRN Administration PAIN/DYSPNEA Hydromorphone HCl 50 mg/ 100 mls @ 1 mls/hr 02/23/25 16:30 02/25/25 07:00 Sodium Chloride IV CONT 0.5 mg/hr .Q24H ALFRED 1 mls/hr Infusion 0.5 MG/HR Prochlorperazine Edisylate 10 mg 02/23/25 16:30 Prochlorperazine Edisylate 10 Mg/2 Ml Vial IV PUSH Q6H PRN Nausea And Vomiting
[2025-02-25] MEDS: HYDROmorphone HCL/PF (*CRX) 50 MG in SODIUM CHLORIDE 0.9% IV 95 ML IV CONT (15:49)
[2025-02-25 20:55] VITALS: BP 103/82; PULSE 61; RESP 20; TEMP 36.3; O2SAT 90
[2025-02-26 04:00] VITALS: RESP 14
[2025-02-26] MEDS: diazePAM INJ (*CRX) 10 MG/2 ML SYRINGE 5 MG IV PUSH ×3 (06:15→21:48)
[2025-02-26 08:00] VITALS: BP 115/59; PULSE 97; RESP 14; TEMP 36.3; O2SAT 86
[2025-02-26] MEDS: HYDROmorphone HCL INJ (*CRX) 2 MG/ML VIAL 0.5 MG IV PUSH (11:53)
--- NOTE | 2025-02-26 17:00 | P.PNIM_ITS ---
Progress Note: A&P Assessment and Plan (1) Hospice care: Code(s): Z51.5 - Encounter for palliative care Status: Acute Assessment and Plan: * Meet inpatient hospice criteria due to requiring continuous IV hydromorphone at 0.25 milligrams/hour for control of dyspnea * P.r.n. palliative regimen ordered * 02/23/2025: Discussed care and prognosis with daughter and granddaughter at bedside * 02/24/2025: Restless and uncomfortable earlier, better after prn meds and increased in hydromorphone to 0.5 mg/hr and scheduled diazepam 5 mg q 8 hr, d/w daughter at bedside * 02/25/2025: Now hypothermic, hypotensive, unresponsive, too unstable to transfer, d/w daughter and grandson at bedside * 02/26/2025: Now hypoxic, hypothermic, unresponsive, too unstable to transfer, d/w daughter at bedside (2) Septic shock: Code(s): A41.9 - Sepsis, unspecified organism; R65.21 - Severe sepsis with septic shock Status: Acute Subjective Date/time seen: 02/26/25 17:00 Interval history: Comfortable overnight. Continues on hydromorphone 0.5 mg/hr. Review of Systems Review of Systems: ROS unobtainable: Yes unobtainable due to medical condition Exam Narrative: HEENT: Pharyngeal mucosa pink and dry NECK: No JVD CHEST: Tachypneic with coarse breath sounds HEART: NL S1/S2, regular, tachycardic, no murmur ABDOMEN: BS hypoactive, soft, nontender, no mass, no bruits EXTREMITIES: No cyanosis, edema, or clubbing NEUROLOGIC: CN symmetric to inspection MUSCULOSKELETAL: Without gross deformity to visual inspection PSYCH: Unresponsive to verbal and tactile stimuli Objective Data Vital Signs Vital Signs: Vital Signs - 24 hr 02/25/25 20:55 02/26/25 04:00 02/26/25 08:00 Temperature 97.4 F L 97.3 F L Pulse Rate 61 97 Respiratory Rate 20 14 14 Blood Pressure 103/82 115/59 L Pulse Oximetry 90 86 L Intake/Output Intake/Output: Intake & Output 02/23/25 02/24/25 02/25/25 02/26/25 23:59 23:59 23:59 23:59 Intake Total 0.2 11 16.2 Balance 0.2 11 16.2 Meds/Results Medications: Active Medications Generic Name Dose Route Start Last Admin Trade Name Freq PRN Reason Stop Dose Admin Acetaminophen 650 mg 02/23/25 16:43 Acetaminophen 650 Mg Suppository RECTAL Q6H PRN Fever Artificial Tears 1 drop 02/23/25 16:30 Artificial Tears Ophth Soln 15 Ml Bottle EACH EYE Q12H PRN Dry Eye(s) Bisacodyl 10 mg 02/23/25 16:30 Bisacodyl 10 Mg Suppository RECTAL DAILY PRN Constipation Diazepam 5 mg 02/23/25 16:29 02/24/25 10:38 Diazepam Inj (*Crx) 10 Mg/2 Ml Syringe IV PUSH 5 mg Q6H PRN Administration RESTLESSNESS Diazepam 5 mg 02/24/25 13:00 02/26/25 14:21 Diazepam Inj (*Crx) 10 Mg/2 Ml Syringe IV PUSH 5 mg Q8HR ALFRED Administration Glycopyrrolate 0.1 mg 02/23/25 16:30 02/24/25 06:09 Glycopyrrolate Inj (*Sp) 0.2 Mg/Ml Vial IV PUSH 0.1 mg Q4H PRN Administration secretions Hydromorphone HCl 0.5 mg 02/23/25 16:31 02/26/25 11:53 Hydromorphone Hcl Inj (*Crx) 2 Mg/Ml Vial IV PUSH 0.5 mg Q2H PRN Administration PAIN/DYSPNEA Hydromorphone HCl 50 mg/ 100 mls @ 1 mls/hr 02/23/25 16:30 02/25/25 15:49 Sodium Chloride IV CONT 0.5 mg/hr .Q24H ALFRED 1 mls/hr Administration 0.5 MG/HR Prochlorperazine Edisylate 10 mg 02/23/25 16:30 Prochlorperazine Edisylate 10 Mg/2 Ml Vial IV PUSH Q6H PRN Nausea And Vomiting
[2025-02-26 20:00] VITALS: BP 90/61; PULSE 76; RESP 16; TEMP 36.9; O2SAT 89
[2025-02-27] MEDS: HYDROmorphone HCL/PF (*CRX) 50 MG in SODIUM CHLORIDE 0.9% IV 95 ML IV CONT ×2 (05:30→16:44)
[2025-02-27] MEDS: diazePAM INJ (*CRX) 10 MG/2 ML SYRINGE 5 MG IV PUSH ×3 (05:32→16:54)
[2025-02-27 08:00] VITALS: BP 135/117; PULSE 76; PULSE 80; RESP 14; RESP 16; TEMP 36.8; O2SAT 85; O2SAT 89
[2025-02-27 08:21] VITALS: PULSE 76; RESP 16; O2SAT 89
[2025-02-27 16:44] VITALS: PULSE 60; RESP 20
--- NOTE | 2025-02-27 16:55 | P.PNIM_ITS ---
Progress Note: A&P Assessment and Plan (1) Hospice care: Code(s): Z51.5 - Encounter for palliative care Status: Acute Assessment and Plan: * Meet inpatient hospice criteria due to requiring continuous IV hydromorphone at 0.25 milligrams/hour for control of dyspnea * P.r.n. palliative regimen ordered * 02/23/2025: Discussed care and prognosis with daughter and granddaughter at bedside * 02/24/2025: Restless and uncomfortable earlier, better after prn meds and increased in hydromorphone to 0.5 mg/hr and scheduled diazepam 5 mg q 8 hr, d/w daughter at bedside * 02/25/2025: Now hypothermic, hypotensive, unresponsive, too unstable to transfer, d/w daughter and grandson at bedside * 02/26/2025: Now hypoxic, hypothermic, unresponsive, too unstable to transfer, d/w daughter at bedside * 02/27/2025: Hypotensive, hypothermic, hypoxic, tachycardic, tachypneic, unresponsive, imminent, d/w daughter at bedside (2) Septic shock: Code(s): A41.9 - Sepsis, unspecified organism; R65.21 - Severe sepsis with septic shock Status: Acute Subjective Date/time seen: 02/27/25 16:55 Interval history: Remains comfortable. Review of Systems Review of Systems: ROS unobtainable: Yes unobtainable due to medical condition Exam Narrative: HEENT: Pharyngeal mucosa pink and dry NECK: No JVD CHEST: Tachypneic with coarse breath sounds HEART: NL S1/S2, irregular, tachycardic, no murmur ABDOMEN: BS hypoactive, soft, nontender, no mass, no bruits EXTREMITIES: No edema, mottling NEUROLOGIC: CN symmetric to inspection MUSCULOSKELETAL: Without gross deformity to visual inspection PSYCH: Unresponsive to verbal and tactile stimuli Objective Data Vital Signs Vital Signs: Vital Signs - 24 hr 02/26/25 20:00 02/26/25 20:00 02/27/25 08:00 Temperature 98.4 F Pulse Rate 76 76 Respiratory Rate 16 16 Blood Pressure 90/61 L Pulse Oximetry 89 L 89 L Oxygen Delivery Room Air Room Air 02/27/25 08:00 02/27/25 08:21 02/27/25 16:44 Temperature 98.3 F Pulse Rate 80 76 60 Respiratory Rate 14 16 20 Blood Pressure 135/117 H Pulse Oximetry 85 L 89 L Oxygen Delivery Room Air 02/27/25 16:44 Temperature Pulse Rate 60 Respiratory Rate 20 Blood Pressure Pulse Oximetry Oxygen Delivery Intake/Output Intake/Output: Intake & Output 02/24/25 02/25/25 02/26/25 02/27/25 23:59 23:59 23:59 23:59 Intake Total 11 16.2 48.9 Balance 11 16.2 48.9 Meds/Results Medications: Active Medications Generic Name Dose Route Start Last Admin Trade Name Freq PRN Reason Stop Dose Admin Acetaminophen 650 mg 02/23/25 16:43 Acetaminophen 650 Mg Suppository RECTAL Q6H PRN Fever Artificial Tears 1 drop 02/23/25 16:30 Artificial Tears Ophth Soln 15 Ml Bottle EACH EYE Q12H PRN Dry Eye(s) Bisacodyl 10 mg 02/23/25 16:30 Bisacodyl 10 Mg Suppository RECTAL DAILY PRN Constipation Diazepam 5 mg 02/23/25 16:29 02/27/25 05:32 Diazepam Inj (*Crx) 10 Mg/2 Ml Syringe IV PUSH 5 mg Q6H PRN Administration RESTLESSNESS Diazepam 5 mg 02/24/25 13:00 02/27/25 16:54 Diazepam Inj (*Crx) 10 Mg/2 Ml Syringe IV PUSH 5 mg Q8HR ALFRED Administration Glycopyrrolate 0.1 mg 02/23/25 16:30 02/24/25 06:09 Glycopyrrolate Inj (*Sp) 0.2 Mg/Ml Vial IV PUSH 0.1 mg Q4H PRN Administration secretions Hydromorphone HCl 0.5 mg 02/23/25 16:31 02/26/25 11:53 Hydromorphone Hcl Inj (*Crx) 2 Mg/Ml Vial IV PUSH 0.5 mg Q2H PRN Administration PAIN/DYSPNEA Hydromorphone HCl 50 mg/ 100 mls @ 1 mls/hr 02/23/25 16:30 02/27/25 16:44 Sodium Chloride IV CONT 0.5 mg/hr .Q24H ALFRED 1 mls/hr Administration 0.5 MG/HR Prochlorperazine Edisylate 10 mg 02/23/25 16:30 Prochlorperazine Edisylate 10 Mg/2 Ml Vial IV PUSH Q6H PRN Nausea And Vomiting
--- NOTE | 2025-02-28 13:11 | P.DN_ITS ---
Discharge Summary Date and Time Date of : 02/27/25 Time of : 19:45 Provider Pronounced By: 2 RNs Name of First RN That Pronounced: MADISON LIGHT RN Name of Second RN That Pronounced: MECHE GEORGE RN Probable Cause of Probable Cause of : Sepsis with septic shock of undetermined etiology Summary Hospital Course: Admitted to inpatient hospice service for symptom management. Medication was titrated to comfort. Mrs. Stover peacefully. Additional Data Confirmation of as documented by pronouncing clinician: Pupillary Reflex, Palpable Pulses, Response to Stimuli, Heart Tones and Breath Sounds Name of Provider Notified: ESTHELA MCLAUGHLIN Time Provider Notified: 20:10 Provider Requests Autopsy: No Family Requests Autopsy: No Production Administrative Assistant Notified: Yes Date [facility] Notified of : 02/27/25 Time [facility] Notified of : 20:18
== END 2025-02-27 22:41 | disposition expired | DRG 951 ==
PROVIDERS: Admitting Provider Internal Medicine; PCP Family Medicine; Visit Provider Internal Medicine
DX: Z51.5 Encounter for palliative care (principal); A41.9 Sepsis, unspecified organism; R65.21 Severe sepsis with septic shock; Z66 Do not resuscitate; K21.9 Gastro-esophageal reflux disease without esophagitis; E11.9 Type 2 diabetes mellitus without complications; E78.5 Hyperlipidemia, unspecified; I10 Essential (primary) hypertension; G30.9 Alzheimer's disease, unspecified; F02.80 Dementia in other diseases classified elsewhere, unspecified severity, without behavioral disturbance, psychotic disturbance, mood disturbance, and anxiety; I34.1 Nonrheumatic mitral (valve) prolapse; J98.4 Other disorders of lung
CPT/HCPCS: A9270; J1171; J1596; J3360